=== PATIENT | female | born 1965 | race Caucasian/White ===

== ENCOUNTER 2020-06-10 09:45 | Outpatient (CLI) | payer BC, SELFPAY ==
--- NOTE | 2020-06-10 09:52 | MM_ITS ---
WS: [id number] BILATERAL DIGITAL SCREENING MAMMOGRAPHY WITH CAD CLINICAL INFORMATION: SCREENING HISTORY: Screening mammogram. No current complaints. COMPARISON: [id number] TECHNIQUE: Bilateral CC and MLO views. FINDINGS: The breasts are composed of heterogeneous fibroglandular density tissue, which can limit the detectio n of small underlying mass lesions. No suspicious mass, asymmetry, calcifications, or architectural d istortion. No evidence of malignancy. A few punctate and lucent centered calcifications. MM/[place] [id number] IMPRESSION: BI-RADS: 2-Benign FOLLOW UP: 1 Year Follow-up Recommend return to annual screening mammography.
== END 2020-06-10 09:46 | disposition home or self-care (01) ==
LOC: RADSHAW 09:51
PROVIDERS: PCP Internal Medicine; Visit Provider Internal Medicine
DX: Z12.31 Encounter for screening mammogram for malignant neoplasm of breast (principal)
CPT/HCPCS: 77067

== ENCOUNTER 2021-10-18 16:12 | Outpatient (CLI) | payer OTHER, SELFPAY ==
--- NOTE | 2021-10-18 16:23 | XR_ITS ---
WS: [id number] XR KUB [id number] REASON FOR EXAM: ABD BLOATING FINDINGS: No free air or retroperitoneal air. Unremarkable bowel gas pattern with no significant bowel distention. No urinary tract calculi. Increased soft tissue density within the pelvis which does not clearly represent distended urinary bl adder. No other significant abnormality. XR/XR KUB [id number] IMPRESSION: Abnormality of the pelvis. Transabdominal ultrasound is recommended to evaluate for pelvic mass.
== END 2021-10-18 16:13 | disposition home or self-care (01) ==
PROVIDERS: PCP Internal Medicine; Visit Provider Nurse Practitioner Family
DX: R14.0 Abdominal distension (gaseous) (principal)
CPT/HCPCS: 74018

== ENCOUNTER 2021-10-26 10:06 | Outpatient (CLI) | payer OTHER, SELFPAY ==
--- NOTE | 2021-10-26 10:43 | CT_ITS ---
WS: [id number] CT ABDOMEN PELVIS TECHNIQUE: Contrast-enhanced CT of the abdomen and pelvis with coronal and sagittal reformatted image s. CLINICAL INFORMATION: LIVER NODULE, EPIGASTRIC DISCOMFORT, ABDOMINAL BLOATING COMPARISON: None. DLP: 1153.[address] scans at [facility] use at least one of these dose optimization techniques: automated e xposure control; mA and/or kV adjustment per patient size (includes targeted exams where dose is matc hed to clinical indication); or iterative reconstruction. FINDINGS:Diffuse induration in the ventral peritoneum with bulky nodular soft tissue implants compati ble with metastatic peritoneal carcinomatosis. Nodular soft tissue implants along the ventral periton eum range in size from 2 to 4 cm. Additional extensive soft tissue peritoneal implants within the mario alberto tral and dorsal pelvis. Cystic lesion with peripheral nodularity in the midline pelvis likely corresp onds to the lesion seen on the recent ultrasound. This measures 4.6 x 4.2 cm and may represent the pr imary neoplasm. There is diffuse bulky rectal wall thickening partially evaluated that could also rep resent primary neoplasm versus metastatic disease. Normal caliber abdominal aorta. No periaortic or peritoneal lymphadenopathy. Lesion described on the ultrasound in the liver likely represents the prominent soft tissue metastati c implant in the left upper quadrant between the liver and spleen seen today measuring 4.7 x 3.1 CM. Notable implant in the left lower quadrant measuring 3.8 x 4.7 cm. Diffuse fatty infiltration of the liver. Prior cholecystectomy. Mild to moderate abdominal and pelvic ascites. Perihepatic and perisplenic ascites. Right lung is well aerated. Small left pleural effusio n with left basilar atelectasis. Normal portal vein and splenic vein. Mild fatty atrophy of the pancr eas. Adrenal glands are normal. Normal renal parenchymal enhancement. Tiny right renal cyst. No hydro nephrosis in either kidney. No periaortic or retroperitoneal lymphadenopathy. No inguinal lymphadenopathy. Mild fatty atrophy of the pancreas. No inguinal lymphadenopathy. Disc space narrowing L5-S1. IMPRESSION: 1. Extensive bulky peritoneal carcinomatosis compatible with metastatic disease involving the ventra l abdominal peritoneum and pelvis. Consider ovarian or colon metastatic neoplasms including mucinous neoplasms. 2. There is diffuse bulky rectal wall thickening partially evaluated that could also represent prima ry neoplasm versus metastatic disease. 3. Prominent metastatic implant in the left upper quadrant measuring 4.7 x 3.1 CM. Additional notabl e metastatic implant in the left lower quadrant measuring 3.8 x 4.7 cm 4. No focal liver lesions. Diffuse fatty infiltration of the liver. 5. Cystic lesion in the midline pelvis measuring 4.2 x 4.6 cm with eccentric mural nodularity likely represents the cystic ovarian lesion seen on the recent ultrasound. This may represent a primary ova lala neoplasm but indeterminant 6. Mild to moderate abdominal ascites with perisplenic, perihepatic and pelvic fluid. 7. Small left pleural effusion with left basilar atelectasis. 8. Consider fluid sampling or CT biopsy of the omental implants in further evaluation. Notified Deepa Farris MD at 10/26/2021 1:22 PM.
[2021-10-26] MEDS: iohexol 300 mg/mL 100 mL Btl IV (12:12)
[2021-10-26] MEDS: iohexol 300 mg/mL 50 mL Btl PO (12:13)
== END 2021-10-26 10:07 | disposition home or self-care (01) ==
PROVIDERS: PCP Internal Medicine; Visit Provider Internal Medicine
DX: K76.89 Other specified diseases of liver (principal); R10.13 Epigastric pain; R14.0 Abdominal distension (gaseous); C78.6 Secondary malignant neoplasm of retroperitoneum and peritoneum; K76.0 Fatty (change of) liver, not elsewhere classified; R18.8 Other ascites; J90 Pleural effusion, not elsewhere classified; J98.11 Atelectasis
CPT/HCPCS: 74177; Q9967

== ENCOUNTER 2021-10-29 09:08 | Outpatient (CLI) | payer OTHER, SELFPAY ==
--- NOTE | 2021-10-29 13:09 | ONC CON_ITS ---
Dr. Amor New Patient Note Patient: Genny Diaz Unit #: [id number]: 1965 Dicatated By: Tristan Amor M.D.Date of Visit: Oct 29, 2021 Onc MED New Patient/Consult Referring Physician: Dr. BARBIE PRO M.D. Chief Complaint: Peritoneal carcinomatosis. History of Present Illness: This is a 56-year-old woman with CT evidence of peritoneal carcinomatosis. She has been in good general health. She had recently presented to Dr. Pro with abdominal swelling and postprandial abdominal discomfort. An abdominal ultrasound on 10/25/2021 showed hepatomegaly with coarsened echogenicity. A nodular area of differential echogenicity was noted in the left hepatic lobe measuring 4.3 x 5.4 cm. There was no hydronephrosis noted. There was mild ascites estimated at 1300 mL. Pelvic ultrasound showed a cystic lesion in the right ovary measuring 5.0 x 4.0 x 3.7 cm and containing internal debris. The left ovary was not well visualized. A small amount of free fluid was noted in the cul-de-sac. Further evaluation with CT of the abdomen/pelvis on 10/26/2021 showed extensive bulky peritoneal carcinomatosis compatible with metastatic disease involving the ventral abdominal peritoneum and pelvis. A prominent metastatic implant was noted in the left upper quadrant measuring 4.7 x 3.1 cm with an additional notable metastatic implant in the left lower quadrant measuring 3.8 x 4.7 cm. A cystic lesion in the midline pelvis measuring 4.2 x 4.6 cm with eccentric mural nodularity was felt to likely represent the a cystic ovarian lesion seen on the ultrasound. There was diffuse bulky rectal wall thickening possibly representing primary neoplasm versus metastatic disease. There was mild to moderate abdominal ascites and there was a small left pleural effusion. There was diffuse fatty infiltration of the liver with no evidence for focal liver lesions. She has still been feeling pretty good generally. She still has good energy and normal activity. ECOG score is 0. She has had a decrease in appetite, and her weight is down 25 pounds. At least some of that she attributes to the fact that for the past 6 months she has been walking. She does not have fever, night sweats, or hot flashes. She underwent natural menopause in 2014. She had just short-term hormonal therapy at that time. She has been on treatment with apremilast for psoriasis. She says it worked really well at first, but lately the psoriasis has gotten a little worse. She has not had sore throat or difficulty swallowing. She does not complain of cough, and she has not been having shortness of breath or chest pain. She has not been having nausea. She does report having some heartburn and she has postprandial abdominal bloating/discomfort. Bowel function is pretty good. She has not been aware of any blood in the stool. Bladder function also is pretty good. She has a little bit of joint stiffness when she first gets up in the morning. She has no significant joint or bone pain. She has a history of migraine headaches. She has not been dizzy or lightheaded, and she has no focal neurologic symptoms. Past Medical History: Her medical history includes depression, hypertension, migraine headaches, and psoriasis. Past Surgical History: Her surgical/procedural history includes cholecystectomy in 2011 and tubal ligation in 1995. Medications: Amitriptyline HCl 1 Tablet (of 25 mg) Oral at bedtime, amLODIPine Besylate 1 Tablet (of 5 mg) Oral daily, FLUoxetine HCl 1 Capsule (of 40 mg) Oral daily, Lisinopril-hydroCHLOROthiazide 1 Tablet (of 20-12.5 mg) Oral b.i.d., Magnesium 1 Tablet (of 500 mg) Oral at bedtime Allergies: No Known Allergies. Social History: Ms. Diaz is . She is a non-smoker. She does not drink alcohol. Family History: Father with an aortic aneurysm at around age 80. Her mother at age 88. At the time they suspected a [place] cancer. She had previous treatment for colon cancer and superficial bladder cancer. A brother of a head/neck cancer at age 67. Review Of Symptoms: Constitutional - She still feels pretty good generally. She has good energy and she has normal activity. Her appetite has decreased, and she has had a weight loss of 25 pounds. Some of that she attributes to the fact that for the past 6 months she has been walking. She does not have fever, night sweats, or hot flashes. ECOG score is 0, Eyes - No change in vision, ENMT - No hearing loss or tinnitus. No sinus congestion/drainage. No mouth sores. No sore throat or difficulty swallowing, Hematologic/Lymphatic - No abnormal bruising or bleeding, Respiratory - No shortness of breath. No cough. No pleuritic pain or hemoptysis, Cardiovascular - No angina pain. No palpitations, Gastrointestinal - No nausea or vomiting. She has had a little bit of heartburn. No diarrhea or constipation. No blood in the stool or black stools, Genitourinary (F) - No dysuria or hematuria. No urinary frequency. No urgency or incontinence, Musculoskeletal - She has a little bit of joint stiffness when she first gets up in the morning. She has no significant joint or bone pain, Integumentary - She has psoriasis. It improved on treatment, but recently has been getting a little worse, Neurologic - She has history of migraine headaches. No dizziness. No numbness or tingling. No other focal neurologic symptoms, Psychiatric - She has a little bit of depression. No insomnia. Vital Signs: Performed on Oct 29, 2021 09:49: 2, 0, 30.11 (HIGH), 1.80 sq.m, 63 in, 97 %, 93 /min, 16 /min, 133/84 mm(hg), 97.8 F (LOW), and 170.0 lbs (HIGH). Physical Examination: Constitutional - She appears to be in good general health, Eyes - Sclerae nonicteric. Conjunctivae clear, ENMT - No lesions noted in the oral cavity, Neck - No mass or thyromegaly, Hematologic/Lymphatic - No cervical, clavicular, or axillary adenopathy, Respiratory - Lungs are clear with good air movement bilaterally, Cardiovascular - Heart rhythm is regular. There is no murmur, gallop, or rub noted, Abdomen - Mildly distended but soft. Liver and spleen are not enlarged. There is no abdominal mass noted. She does not have overt evidence of ascites. There is no inguinal adenopathy, Back/Spine - No spine or CVA tenderness noted, Extremities - No edema. Dorsalis pedis pulses are palpable bilaterally, Integumentary - No suspicious skin lesions noted, Neurologic - No focal neurologic deficits noted. Lab/Imaging: Her laboratory studies from 10/18/2021 included CBC showing hemoglobin 12.1 g with hematocrit 38.2%. The red cell indices were borderline low. White blood cell count was 8200 and platelet count was 726,000. Comprehensive metabolic profile showed borderline renal function with BUN 14 and creatinine 1.10 mg/dL. Bilirubin and liver enzymes were normal. Albumin was normal at 4.0 g/dL. TSH was normal at 1.870 ???IU/mL. Problem List: 1. Patient with CT evidence of extensive peritoneal carcinomatosis. The appearance is most suggestive of ovarian cancer or primary peritoneal carcinoma. Other primary malignancy at this point is not excluded. 2. Hypertension. 3. Psoriasis. 4. History of migraine headaches. 5. Depression. Problems Addressed with this Encounter and Plan: Patient with CT evidence of extensive peritoneal carcinomatosis. The appearance is most suggestive of ovarian cancer or primary peritoneal carcinoma. Other primary malignancy at this point is not excluded. The CT findings and images were reviewed with the patient and her , and we discussed the clinical implications. She has extensive peritoneal carcinomatosis. A tissue diagnosis will need to be verified with biopsy, and she has been scheduled for a CT directed biopsy. Tumor markers also have been requested, and those results are pending. Treatment recommendations will depend on the primary site and complete pathologic analysis. If it is an ovarian cancer or primary peritoneal malignancy, I will be consulting with [facility] oncology prior to initiating any treatment. Signed By: Tristan Amor M.D. <<Signature on File>>
== END 2021-10-29 09:09 | disposition home or self-care (01) ==
LOC: ONCMED 09:14
PROVIDERS: PCP Internal Medicine; Visit Provider Internal Medicine Medical Oncology
DX: C78.6 Secondary malignant neoplasm of retroperitoneum and peritoneum (principal); C80.1 Malignant (primary) neoplasm, unspecified; I10 Essential (primary) hypertension; F32.A Depression, unspecified; L40.9 Psoriasis, unspecified; Z79.899 Other long term (current) drug therapy; Z80.52 Family history of malignant neoplasm of bladder; Z80.8 Family history of malignant neoplasm of other organs or systems
CPT/HCPCS: 99204

== ENCOUNTER 2021-11-04 12:30 | Outpatient (CLI) | payer OTHER, SELFPAY ==
--- NOTE | 2021-11-04 | CT_ITS ---
WS: [id number] CT-GUIDED PERITONEAL BIOPSY CLINICAL INFORMATION: Peritonel carcinomatosis COMPARISON: CT October 26, 2021 DLP: 1023.95 mGy.cm TECHNIQUE: The procedure including risk, benefits, and complications were discussed with the patient who agreed to proceed. Using sterile technique, the patient was prepped and draped in the usual steri le fashion. Patient was positioned supine and CT images were obtained through the abdomen. A peripher al omental nodule was selected. After 1% lidocaine using fluoroscopic guidance, a 18-gauge coaxial ne edle was advanced into the omental mass. Numerous core samples were obtained. In addition, approximat heri 50 cc of bloody fluid was aspirated and sent for cytology. No immediate complications.
== END 2021-11-04 12:31 | disposition home or self-care (01) ==
PROVIDERS: PCP Internal Medicine; Visit Provider Internal Medicine
DX: C78.6 Secondary malignant neoplasm of retroperitoneum and peritoneum (principal)
CPT/HCPCS: 77012; 88112; 88305; 88309

== ENCOUNTER 2021-11-04 14:55 | Outpatient (CLI) | payer OTHER, SELFPAY ==
[2021-11-03 11:38] VITALS: BMI 29.9
[2021-11-04] VITALS (9 sets, daily range): BP systolic 107–125; BP diastolic 70–79; PULSE 69–87; RESP 16–19; TEMP 36.5–36.9; O2SAT 95–100
--- NOTE | 2021-11-04 | CT_ITS ---
WS: [id number] CT-GUIDED PERITONEAL BIOPSY CLINICAL INFORMATION: Peritonel carcinomatosis COMPARISON: CT October 26, 2021 DLP: 1023.95 mGy.cm TECHNIQUE: The procedure including risk, benefits, and complications were discussed with the patient who agreed to proceed. Using sterile technique, the patient was prepped and draped in the usual steri le fashion. Patient was positioned supine and CT images were obtained through the abdomen. A peripher al omental nodule was selected. After 1% lidocaine using fluoroscopic guidance, a 18-gauge coaxial ne edle was advanced into the omental mass. Numerous core samples were obtained. In addition, approximat heri 50 cc of bloody fluid was aspirated and sent for cytology. No immediate complications. CT/CT biopsy abdomen percut 51309 IMPRESSION: 1. Multiple 18-gauge core samples were obtained of the omental mass. No immedi ate complications. 2. Approximately 50 cc of bloody fluid was aspirated and sent for cytology. 3. Patient was discharged 2 hours postprocedure in stable condition.
[2021-11-04] MEDS: sodium chloride 0.9% 1,000 ML 30 ML IV (12:12)
[2021-11-04 12:35] LABS: INR 1.02 (0.8-1.2)
[2021-11-04] MEDS: fentaNYL 50 mcg/mL INJ 2mL 25 MCG IVP ×2 (13:47→13:52)
[2021-11-04] MEDS: midazolam 1 mg/mL INJ 2 mL 2 MG IVP (13:47)
[2021-11-04] MEDS: midazolam 1 mg/mL INJ 2 mL IVP (13:51)
[2021-11-09 15:54] LABS: HER2 FISH/IHC (Non-Gastric) See Report
== END 2021-11-04 15:55 | disposition home or self-care (01) ==
LOC: GILAB 14:59
PROVIDERS: Radiology Neuroradiology; PCP Internal Medicine; Visit Provider Internal Medicine
DX: C78.6 Secondary malignant neoplasm of retroperitoneum and peritoneum (principal)
CPT/HCPCS: 36415; 49180; 77012; 85610; 88104; 88112; 88305; 88309; 88342; 88374; 96374; 96375; J2250; J3010; J7030

== ENCOUNTER 2021-11-05 15:42 | Inpatient (IN) | payer OTHER, SELFPAY ==
[2021-11-05] VITALS (9 sets, daily range): BP systolic 86–103; BP diastolic 52–61; PULSE 88–95; RESP 20–36; TEMP 36.4; O2SAT 88–94
--- NOTE | 2021-11-05 15:49 | XR_ITS ---
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 There is very mild elevation of the LEFT hemidiaphragm which is new since the irrigation flume layer image 10/26/2021. May be due to partial atelectasis. Very slight subsegmental atelectasis at the LEFT lung base. No pul monary mass or nodule identified. No pneumothorax. No free air beneath the diaphragm. Cardiac size: Normal. Mediastinum/Aorta: No mediastinal widening. No osseous abnormality seen. XR/XR chest 1V portable [id number] IMPRESSION: Very minimal elevation of the LEFT hemidiaphragm is new since 10/26/2021. May be secondary to partial atelectasis. No pneumonia.
--- NOTE | 2021-11-05 15:49 | ECG_ITS ---
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
[2021-11-05] MEDS: sodium chloride 0.9% 1,000 ML 999 ML IV (16:30)
[2021-11-05] MEDS: ondansetron 2 mg/ML SDV 2 mL 4 MG IVP (16:31)
--- NOTE | 2021-11-05 16:37 | PC.NURSE ---
PATIENT ON CONTINUOUS BEDSIDE CARDIAC, BP AND O2 MONITOR.
[2021-11-05 16:53] LABS: Basophils % 0.3 %; Hemoglobin 11.5 g/dL (11.5-15.3); Lymphocytes # 0.6 10^3/uL (0.8-4.8); Lymphocytes % 5.6 %; Mean Corpuscular HGB Conc 30.3 g/dL (30.0-36.0); Mean Corpuscular Hemoglobin 25.3 pg (28.0-34.0); Mean Corpuscular Volume 83.5 fl (81-99); Mean Platelet Volume 9.5 fL (7.4-10.4); Monocytes # 0.3 10^3/uL (0.2-0.9); Monocytes % 2.5 %; Neutrophils % 91.2 %; Nucleated Red Blood Cells % 0 %; Platelet Count 565 10^3/cmm (130-400); Red Blood Count 4.55 10^6/uL (4.1-5.3); Red Cell Distribution Width 15.5 % (12.1-15.1); White Blood Count 10.1 10^3/uL (4.0-10.0)
[2021-11-05 17:08] LABS: Alanine Aminotransferase 18 U/L (0-33); Albumin Level 3.6 g/dL (3.5-5.2); Alkaline Phosphatase 103 IU/L (35-105); Blood Urea Nitrogen 19 mg/dL (6-20); Calcium 9.6 mg/dL (8.5-10.5); Carbon Dioxide 20 mmol/L (22-29); Chloride 95 mmol/L (98-107); Creatine Phosphokinase 58 U/L (26-192); Globulin 3.7 g/dL (1.3-4.6); Glomerular Filtration Rate 33.2 mL/min (90-130); Glucose 133 mg/dL (65-115); Lipase 8 U/L (13-60); Osmolality Calculated 282 mOsm/kg (285-295); Sodium 134 mmol/L (136-145); Total Bilirubin 1.3 mg/dL (0.15-1.2); Total Protein 7.3 g/dL (6.6-8.7)
--- NOTE | 2021-11-05 17:12 | CTR_ITS ---
PROCEDURE INFORMATION: Exam: CTA Chest With Contrast Exam date and time: 11/05/2021 5:12 PM Age: 56 years old Clinical indication: Abdominal pain; Periumbilical; Left-sided; Prior surgery; Surgery date: Post-operative (0-2 days); Surgery type: S/P 1day for abdominal biopsy. Pain in the abdomen with diarrhea; Additional info: Eval for pe TECHNIQUE: Imaging protocol: Computed tomographic angiography of the chest with contrast. 3D rendering (Not supervised by radiologist): MIP and/or 3D reconstructed images were created by the technologist. Radiation optimization: All CT scans at this facility use at least one of these dose optimization techniques: automated exposure control; mA and/or kV adjustment per patient size (includes targeted exams where dose is matched to clinical indication); or iterative reconstruction. Contrast material: VISIPAQUE 320; Contrast volume: 95 ml; Contrast route: INTRAVENOUS (IV); COMPARISON: CR XR chest 1V portable [id number] 11/05/2021 3:59 PM RADIATION DOSE METRICS: Total DLP (mGy-cm): 1332.83 FINDINGS: Pulmonary arteries: Normal. No pulmonary emboli. Aorta: Unremarkable. No aortic aneurysm. No aortic dissection. Lungs: Atelectasis or scar in the anterior right upper lobe. Scattered atelectasis or scarring in the right middle lobe, right lower lobe, and lingula. Passive atelectasis in the left lower lobe. Pleural spaces: Medium-sized left pleural effusion, 3.5 cm in thickness. Heart: Unremarkable. No cardiomegaly. No pericardial effusion. Lymph nodes: Unremarkable. No enlarged lymph nodes. Bones/joints: Unremarkable. No acute fracture. Soft tissues: Unremarkable. PROCEDURE INFORMATION: Exam: CT Abdomen And Pelvis With Contrast Exam date and time: 11/05/2021 5:12 PM Age: 56 years old Clinical indication: Abdominal pain; Periumbilical; Left-sided; Prior surgery; Surgery date: Post-operative (0-2 days); Surgery type: S/P 1day for abdominal biopsy. Pain in the abdomen with diarrhea; Additional info: Eval for pe TECHNIQUE: Imaging protocol: Computed tomography of the abdomen and pelvis with contrast. Radiation optimization: All CT scans at this facility use at least one of these dose optimization techniques: automated exposure control; mA and/or kV adjustment per patient size (includes targeted exams where dose is matched to clinical indication); or iterative reconstruction. Contrast material: VISIPAQUE 320; Contrast volume: 95 ml; Contrast route: INTRAVENOUS (IV); COMPARISON: CR XR chest 1V portable [id number] 11/05/2021 3:59 PM RADIATION DOSE METRICS: Total DLP (mGy-cm): 1332.83 FINDINGS: Liver: Normal. No mass. Gallbladder and bile ducts: Cholecystectomy. The bile ducts are normal. Pancreas: Normal. No ductal dilation. Spleen: Normal. No splenomegaly. Adrenal glands: Normal. No mass. Kidneys and ureters: Hypodensities in the right kidney are too small to characterize but are most likely cysts. The left kidney is normal. No follow-up imaging is recommended. No calculus or hydronephrosis. Stomach and bowel: Diverticulosis of the left colon. The remainder of the colon is unremarkable. The stomach and small bowel are unremarkable. No obstruction. Appendix: The appendix is not visualized. No secondary signs of appendicitis. Intraperitoneal space: Large amount of ascites in the abdomen and pelvis, Hounsfield units less than 20. Vasculature: The celiac and superior mesenteric arteries share a common trunk. No abdominal aortic aneurysm. Lymph nodes: Unremarkable. No enlarged lymph nodes. Urinary bladder: Unremarkable as visualized. Reproductive: The uterus is unremarkable. The ovaries are not well visualized. Bones/joints: Unremarkable. No acute fracture. Soft tissues: Multiple soft tissue nodules matted along the posterior left pelvic wall and along the sigmoid colon. Multiple soft tissue density nodules along the greater omentum of the mesentery, anterior left peritoneal cavity, lower right and right lateral peritoneal cavity, and in the left upper quadrant anterior and superior to the spleen. CT/CT angio chest w abd pel w con IMPRESSION: 1. No evidence for pulmonary embolus. 2. No evidence for metastatic disease. 3. Left pleural effusion with left lower lobe atelectasis. 4. Scattered atelectasis and scarring in both lungs. IMPRESSION: 1. Severe peritoneal carcinomatosis in multiple locations within the peritoneal cavity and mesentery. This could be of ovarian or gastrointestinal origin. No definite ovarian mass is visualized. 2. There is soft tissue caking along the sigmoid colon with likely invasion of the colon wall. This is most likely peritoneal carcinomatosis. Primary malignancy of the colon is not excluded. 3. Large amount of ascites which is of fluid density. No evidence is suggests intraperitoneal hemorrhage. COMMENTS: Consistent with the [employer]'s Incidental Findings Committee white paper (J Am Nighat Radiol 2018): Any incidental renal lesion less than 1 cm or classified as too small to characterize, or any incidental cystic renal lesion characterized as simple-appearing, is likely benign. No follow-up imaging is recommended for these lesions per consensus recommendations based on imaging criteria.
[2021-11-05 17:13] LABS: Lactic Sepsis W/Reflex 3.7 mmol/L (0.5-2.2)
[2021-11-05 17:14] LABS: Aspartate Amino Transferase 32 U/L (0-32)
[2021-11-05 17:28] LABS: ABG PCO2 34.3 mmHg (35-45); ABG PH Result 7.44 (7.35-7.45); Base Excess ABG -0.4 mmol/L (-2.0-2.0); Blood Gas Allen Test Pos; Blood Gas Operator Identificat CAK; Blood Gas Sample Site Brachial, left; Blood Gas Sample Type Arterial; HCO3 ABG 23.4 mmol/L (22-26); Oxygen Device ROOM AIR; PO2 ABG 56.5 mmHg (80.0-100.0)
--- NOTE | 2021-11-05 18:01 | W.ED.GENADLT ---
HPI - General Adult General: Chief complaint: ER Hold Stated complaint: Biopsy yesterday and it is hurting today Time Seen by Provider: 11/05/21 16:39 History of Present Illness: Patient is a 56-year-old female with a history of abdominal carcinomatosis currently under evaluation followed by Dr. Amor presenting to emergency room with complaints of sudden and midepigastric abdominal pain x 1 day. Patient recently underwent left renal biopsy yesterday and since then, patient has had intermittent crampy abdominal pain. Patient has no fever or chills, nausea/vomiting, diarrhea, melena/hematochezia or urinary complaints. She denies any chest pain shortness breath, pleuritic chest pain, or other issues. Patient is not on chemotherapy. Onset: 1 day Duration:ongoing Location:home Severity:moderate Associated symptoms: Deny chest pain, dyspnea, nausea, rash, palpitations or vomiting Review of Systems Const: Denies: fever(s) or chills Eyes: Denies: change in vision ENMT: Denies: mouth pain Card: Denies: chest pain or palpitations Resp: Denies: dyspnea GI: Reports: abdominal pain; Denies: nausea or vomiting : Denies: dysuria Musc: Denies: extremity pain Skin/Breast: Denies: rash Neuro: Denies: weakness in extremities Psych: Reports: other (Normal mood) Mike/Lymph: Denies: easy bruising PFSH ED PFSH: Medical History Anxiety Depression HTN (hypertension) Surgical History History of cholecystectomy No pertinent past surgical history Family History Mother Colon cancer Social History Smoking and tobacco status: never smoked Alcohol intake: never History of recent travel: No Physical Exam Const: COMMON NORMALS: alert HENMT: COMMON NORMALS: atraumatic HEAD & SCALP: atraumatic MOUTH: moist mucous membranes not abnormal Eye: COMMON NORMALS: EOMs intact bilaterally and conjunctivae normal CONJUNCTIVA: Yes conjunctivae normal Neck/C-Spine: COMMON NORMALS: full ROM and supple Resp: COMMON NORMALS: normal respiratory effort and clear to auscultation bilaterally AUSCULTATION: clear to auscultation bilaterally Cardio: COMMON NORMALS: regular rate RATE: regular rate GI: COMMON NORMALS: Soft to palpation and non-tender PALPATION: Yes Soft to palpation OTHER: + abdominal distention. +mild epigastric and R flank ttp. NO guarding rebound, guarding, rigidity. No CVA tenderness to percussion. Neg Rock/Neg McBurney's point tenderness, no suprabupic tenderness to palpation. R flank biopsy incision site dry/clean/intact Extremity: COMMON NORMALS: full ROM Neuro: SENSORIUM/ORIENTATION: Yes alert MOTOR EXAM: No Abnormal motor strength present and Other motor observations present (no focal motor deficits) Psych: COMMON NORMALS: speech normal SPEECH: Yes normal speech MOOD & AFFECT: Yes euthymic mood Course Vital Signs: Vital signs: Vital Signs Temperature 101.4 F H 11/08/21 12:00 Pulse Rate 87 11/08/21 10:55 Respiratory Rate 30 H 11/08/21 10:55 Blood Pressure 93/61 11/08/21 04:00 Pulse Oximetry 99 11/08/21 10:55 MDM - General Adult Medical Decision Making 56-year-old female with a history of. Toenail carcinomatosis presents emergency room with worsening abdominal pain after biopsy x1 day. Patient reports diarrhea nausea and worsening abdominal pain. Patient is afebrile, with mild tenderness palpation midepigastric and right flank area. No guarding rebound tenderness. In the ER, patient is noted to be hypoxemic to 90% no increased work of breathing. Patient does not require oxygen at baseline Covid positive today. CT abdomen pelvis did not show any focal findings or pathologies. Patient has a white count of 10.1. CTA chest negative for PE S/p decadron and remdesivir. O2 sats of 90% on RA with no prior oxygen requirement. I performed a shared decision-making with patient for close outpatient follow-up for paracentesis versus patient for pain from control. Since patient continues to have significant Pain, patient elects to stay in the hospital for better pain control. I explained to the patient that it is unlikely that we will have paracentesis performed in the weekend, however patient still elects to stay in the hospital given concern of persistent pain. Cr of 1.6 with no baseline for comparison. S/p 1L of LR. Patient received 0.5mg of dilaudid and 1mg/kg of nebulized ketamine for pain control. Pain improved with reassessment. Disposition: admission Lab Data : 11/08/21 06:55 11/08/21 06:55 Radiology Impressions Chest/Abdomen/Pelvis CT 11/05/21 17:12 IMPRESSION: 1. No evidence for pulmonary embolus. 2. No evidence for metastatic disease. 3. Left pleural effusion with left lower lobe atelectasis. 4. Scattered atelectasis and scarring in both lungs. IMPRESSION: 1. Severe peritoneal carcinomatosis in multiple locations within the peritoneal cavity and mesentery. This could be of ovarian or gastrointestinal origin. No definite ovarian mass is visualized. 2. There is soft tissue caking along the sigmoid colon with likely invasion of the colon wall. This is most likely peritoneal carcinomatosis. Primary malignancy of the colon is not excluded. 3. Large amount of ascites which is of fluid density. No evidence is suggests intraperitoneal hemorrhage. COMMENTS: Consistent with the [employer]'s Incidental Findings Committee white paper (J Am Nighat Radiol 2018): Any incidental renal lesion less than 1 cm or classified as too small to characterize, or any incidental cystic renal lesion characterized as simple-appearing, is likely benign. No follow-up imaging is recommended for these lesions per consensus recommendations based on imaging criteria. Venous Duplex 11/06/21 22:31 IMPRESSION: No evidence of deep vein thrombosis. Chest X-Ray 11/07/21 08:59 IMPRESSION: 1. Patchy bibasilar airspace opacities may reflect atelectasis versus pneumonia. 2. Mild interstitial pulmonary edema with small bilateral pleural effusions. Laboratory Results WBC 10.1 10^3/uL (4.0-10.0) H 11/05/21 16:34 RBC 4.55 10^6/uL (4.1-5.3) 11/05/21 16:34 Hgb 11.5 g/dL (11.5-15.3) 11/05/21 16:34 Hct 38.0 % (37.0-47.0) 11/05/21 16:34 MCV 83.5 fl (81-99) 11/05/21 16:34 MCH 25.3 pg (28.0-34.0) L 11/05/21 16:34 MCHC 30.3 g/dL (30.0-36.0) 11/05/21 16:34 RDW 15.5 % (12.1-15.1) H 11/05/21 16:34 Plt Count 565 10^3/cmm (130-400) H 11/05/21 16:34 MPV 9.5 fL (7.4-10.4) 11/05/21 16:34 Neut % (Auto) 91.2 % 11/05/21 16:34 Lymph % (Auto) 5.6 % 11/05/21 16:34 Maverick % (Auto) 2.5 % 11/05/21 16:34 Eos % (Auto) 0.0 % 11/05/21 16:34 Baso % (Auto) 0.3 % 11/05/21 16:34 Neut # (Auto) 9.20 10^3/uL (1.8-7.7) H 11/05/21 16:34 Lymph # (Auto) 0.6 10^3/uL (0.8-4.8) L 11/05/21 16:34 Maverick # (Auto) 0.3 10^3/uL (0.2-0.9) 11/05/21 16:34 Eos # (Auto) 0.0 10^3/uL (0.0-0.8) 11/05/21 16:34 Baso # (Auto) 0.0 10^3/uL (0.0-0.1) 11/05/21 16:34 Nucleated RBC % (auto) 0 % 11/05/21 16:34 Nucleated RBCs # 0.0 /100WBC 11/05/21 16:34 D-Dimer 4.98 ug/mIFEU (0-0.59) H 11/05/21 01:40 Specimen Type Arterial 11/05/21 17:16 Sample Site Brachial, left 11/05/21 17:16 ABG pH 7.44 (7.35-7.45) 11/05/21 17:16 ABG pCO2 34.3 mmHg (35-45) L 11/05/21 17:16 ABG pO2 56.5 mmHg (80.0-100.0) L 11/05/21 17:16 ABG HCO3 23.4 mmol/L (22-26) 11/05/21 17:16 ABG Base Excess -0.4 mmol/L (-2.0-2.0) 11/05/21 17:16 James Test Pos 11/05/21 17:16 Hematocrit 32.0 % (37-47) L 11/05/21 17:16 O2 Delivery Device Room air 11/05/21 17:16 FiO2 21.0 % 11/05/21 17:16 Dividend Deposit Entry Clerk ID Cak 11/05/21 17:16 Sodium 134 mmol/L (136-145) L 11/05/21 16:34 Potassium 4.0 mmol/L (3.5-5.1) 11/05/21 16:34 Chloride 95 mmol/L (98-107) L 11/05/21 16:34 Carbon Dioxide 20 mmol/L (22-29) L 11/05/21 16:34 Anion Gap 23.0 (5-19) H 11/05/21 16:34 BUN 19 mg/dL (6-20) 11/05/21 16:34 Creatinine 1.6 mg/dL (0.5-0.9) H 11/05/21 16:34 GFR Calculation 33.2 mL/min (90-130) L 11/05/21 16:34 Glucose 133 mg/dL (65-115) H 11/05/21 16:34 Estimat Average Glucose 108 11/05/21 16:34 Hemoglobin A1c 5.4 % (4.0-6.0) 11/05/21 16:34 Calculated Osmolality 282 mOsm/kg (285-295) L 11/05/21 16:34 Lactic Acid 3.7 mmol/L (0.5-2.2) H 11/05/21 16:34 Lactic Acid (Sepsis) 3.5 mmol/L (0.5-2.2) H 11/05/21 19:31 Calcium 9.6 mg/dL (8.5-10.5) 11/05/21 16:34 Total Bilirubin 1.3 mg/dL (0.15-1.2) H 11/05/21 16:34 AST 32 U/L (0-32) 11/05/21 16:34 ALT 18 U/L (0-33) 11/05/21 16:34 Alkaline Phosphatase 103 IU/L (35-105) 11/05/21 16:34 Creatine Kinase 58 U/L (26-192) 11/05/21 16:34 C-Reactive Protein 142.9 mg/L (0.0-4.9) H 11/05/21 16:34 Total Protein 7.3 g/dL (6.6-8.7) 11/05/21 16:34 Albumin 3.6 g/dL (3.5-5.2) 11/05/21 16:34 Globulin 3.7 g/dL (1.3-4.6) 11/05/21 16:34 Lipase 8 U/L (13-60) L 11/05/21 16:34 Procalcitonin 5.33 ng/mL (0-0.5) H 11/05/21 16:34 Serum Ketones Negative (Negative) 11/05/21 16:34 Coronavirus 229E (PCR) Not detected (NOT DETECT) 11/05/21 17:41 SARS-CoV-2 (PCR) Detected (NOT DETECT) A 11/05/21 17:41 Discharge Plan Discharge Patient Disposition: Admitted As Inpatient Admit Provider: Don Camacho Clinical Impression: Abdominal pain, COVID, Acute kidney injury, Abdominal carcinomatosis Condition: Stable Discharge Diet: Advance as tolerated Discharge Activity: Increase activity as tolerated Coding Level of Care Code ED Warehouse Record Clerk for Char Fwd Exam Comprehensive
[2021-11-05 18:27] LABS: Reflex Lactate Order REFLEX LACTIC ORDERD
[2021-11-05] MEDS: iodixanol 320 mg/mL 100mL Btl IV (19:08)
[2021-11-05 19:59] LABS: Adenovirus Not Detected (NOT DETECT); Chlamydia Pneumoniae Not Detected (NOT DETECT); Coronavirus 229E,HKU1,NL63,OC4 Not Detected (NOT DETECT); Human Metapneumovirus Not Detected (NOT DETECT); Human Rhinovirus/Enterovirus Not Detected (NOT DETECT); Influenza A Not Detected (NOT DETECT); Influenza A H1 Not Detected (NOT DETECT); Influenza A H1-2009 Not Detected (NOT DETECT); Influenza A H3 Not Detected (NOT DETECT); Influenza B Not Detected (NOT DETECT); Mycoplasma Pneumoniae Not Detected (NOT DETECT); Parainfluenza Virus Type 1 Not Detected (NOT DETECT); Parainfluenza Virus Type 2 Not Detected (NOT DETECT); Parainfluenza Virus Type 3 Not Detected (NOT DETECT); Parainfluenza Virus Type 4 Not Detected (NOT DETECT); Respiratory Syncytial Virus A Not Detected (NOT DETECT); Respiratory Syncytial Virus B Not Detected (NOT DETECT); SARS-COV-2 Detected (NOT DETECT)
[2021-11-05 20:11] LABS: Lactic Acid level (Lactate) 3.5 mmol/L (0.5-2.2)
[2021-11-05 20:47] LABS: Ketone (Acetest) Serum Negative (Negative)
[2021-11-05 20:55] LABS: C Reactive Protein 142.9 mg/L (0.0-4.9); Estmated Average Glucose 108; Hemoglobin A1C 5.4 % (4.0-6.0)
[2021-11-05 21:05] LABS: Procalcitonin 5.33 ng/mL (0-0.5)
--- NOTE | 2021-11-05 21:25 | PM.HP ---
Providers/Chief Complaint Primary Care Provider: Deepa Farris MD Chief Complaint: Biopsy yesterday and it is hurting today History of Present Illness Genny Diaz is a 56 year old female with a past medical history of depression, hypertension, GERD, who presents to [facility] due to abdominal pain, abdominal distention, nausea, vomiting. Patient tells me that for the last month she has had abdominal pain, abdominal distention, work-up through her primary care provider if to Dr. Amor's office showed evidence of cystic lesion in the right ovary, echogenicity in the left hepatic lobe, and extensive bulky peritoneal carcinomatosis compatible with metastatic disease involving the ventral abdominal peritoneum and pelvis, with prominent metastatic implants in the left upper quadrant and left lower quadrant, with a cystic lesion in the mid pelvis measuring 4.2 x 4.6 cm. In addition there was evidence of rectal wall thickening. Also left pleural effusion. Patient was diagnosed with radiographic evidence suggestive of peritoneal carcinomatosis, ovarian cancer as a primary or primary peritoneal carcinoma. However other primary malignancies were not excluded. She underwent a CT guided biopsy, with the paracentesis yesterday. 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 Patient since then has had increasing abdominal distention, abdominal pain, nausea, vomiting, no fevers, decreased appetite, decreased stooling. Her admission blood pressure was 89/55, respiratory rates were 20s 30s, temp 97.5, saturating 92 on room air, she has been given a liter bolus, blood pressure is 99/61, creatinine 1.6, white blood cell count 10.1, lactic acid 3.5, CRP 142, pro-Dmitry 5.33, bili 1.3. CT scan of abdomen and pelvis shows large volume ascites. Hospitalist team was called for admission Review of Systems Const: Denies: fever(s), chills, fatigue or malaise Eyes: Denies: change in vision or blurry vision ENMT: Denies: nasal congestion Resp: Denies: dyspnea, productive cough, non-productive cough or wheezing GI: Reports: abdominal pain, nausea and vomiting; Denies: hematemesis, dysphagia, diarrhea, hematochezia or melena : Denies: flank pain, dysuria or urinary frequency Musc: Denies: neck pain or back pain Skin/Breast: Denies: rash Neuro: Denies: headache(s), dizziness or vertigo Endo: Denies: polyuria or polydipsia Medications/Allergies Home Medications Medication Instructions Recorded Confirmed Last Taken Type amitriptyline 25 mg tablet 25 mg PO BEDTIME 03/02/21 11/04/21 11/03/21 History amlodipine 5 mg tablet 5 mg PO DAILY 03/02/21 11/04/21 11/04/21 History fluoxetine 40 mg capsule 40 mg PO DAILY 03/02/21 11/04/21 11/04/21 History lisinopril 20 mg tablet 20 mg PO BID 03/02/21 11/04/21 11/03/21 History nedeulq-blhqeokbtavkx-ehyhmjvz 250 1 tab PO Q6H PRN 11/03/21 11/03/21 11/02/21 History mg-250 mg-65 mg tablet (Excedrin Migraine) ketoconazole 2 % shampoo 1 applic TOPICAL .2x weekly PRN 11/03/21 11/03/21 Unknown History magnesium 500 mg tablet 15 mg PO DAILY 11/03/21 11/04/21 11/01/21 History acetaminophen 500 mg tablet 500 mg PO Q6H PRN 5 Days #20 tab 11/05/21 Unknown Rx calcium carbonate 1,000 1 tab PO TID PRN 7 Days #21 tab 11/05/21 Unknown Rx mg-simethicone 60 mg chewable tablet (Maalox Advanced) famotidine 20 mg tablet (Pepcid) 20 mg PO BID PRN 10 Days #20 tab 11/05/21 Unknown Rx Allergies Allergy/AdvReac Type Severity Reaction Status Date / Time No Known Allergies Allergy Verified 11/05/21 16:07 PFSH Acute PFSH: Medical History Anxiety Depression HTN (hypertension) Surgical History History of cholecystectomy No pertinent past surgical history Family History Mother Colon cancer Social History Smoking and tobacco status: never smoked Alcohol intake: never History of recent travel: No Vitals/I&O/Wt Last Vital Signs Temp 97.5 F L 11/05/21 16:04 Pulse 93 11/05/21 18:34 Resp 36 H 11/05/21 18:34 BP 99/61 11/05/21 18:34 Pulse Ox 92 11/05/21 18:34 11/05/21 11/05/21 11/05/21 06:59 14:59 22:59 Intake Total 1000 / 1000 Balance 1000 / 1000 Weight last 48 hrs Weight 76.657 kg Physical Exam Const: COMMON NORMALS: no acute distress and patient oriented x3 GENERAL APPEARANCE: cooperative, well kempt and well developed HENMT: COMMON NORMALS: normocephalic, Normal external nose present and oropharynx normal HEAD & SCALP: normocephalic FACE & SINUS: normal facial exam NOSE: Normal external nose present MOUTH: Normal oral and palatal mucosa present THROAT: posterior oropharynx normal Eye: COMMON NORMALS: Equal, round and reactive pupils present, EOMs intact bilaterally, conjunctivae normal and no scleral icterus CONJUNCTIVA: Yes conjunctivae normal PUPIL: Yes Equal, round and reactive pupils present Neck/C-Spine: COMMON NORMALS: full ROM, Thyroid normal and No carotid bruits THYROID: Thyroid normal Lymph: LYMPHATIC: no lymphadenopathy noted Chest: COMMONS NORMALS: normal inspection of the chest Resp: COMMON NORMALS: normal respiratory effort, No retractions, No use of accessory muscles and clear to auscultation bilaterally AUSCULTATION: clear to auscultation bilaterally Cardio: COMMON NORMALS: regular rate, regular rhythm, S1 normal heart sound present, S2 normal heart sound present, No murmurs present (Cardio) and Peripheral pulses 2+ throughout RATE: regular rate RHYTHM: regular rhythm HEART SOUNDS: S1 normal heart sound present and S2 normal heart sound present PERIPHERAL PULSES: Peripheral pulses 2+ throughout GI: INSPECTION: Yes abdominal distension AUSCULTATION: Yes Hypoactive bowel sounds present PALPATION: Yes Tenderness to palpation present (GI) (Generalized), No Guarding due to palpation present (GI), No Rigid due to palpation and Yes Ascites present : COMMON NORMALS: Yes no CVA tenderness BLADDER/KIDNEY EXAM: Yes no CVA tenderness Back/Pelvis: COMMON NORMALS: no CVA tenderness Extremity: COMMON NORMALS: normal to inspection, full ROM, capillary refill normal, no calf tenderness and no pedal edema Neuro: COMMON NORMALS: patient oriented x3, CN's II-XII intact bilaterally, moves all extremities, no focal motor deficits and no sensory deficits noted MENINGEAL SIGNS: Yes no meningeal signs Psych: COMMON NORMALS: mental status grossly normal, Normal thought process present, cooperative and speech normal APPEARANCE: Yes well kempt SPEECH: Yes normal speech THOUGHT PROCESS: Normal thought process present Skin: COMMON NORMALS: turgor normal and no jaundice GENERAL SKIN EXAM: turgor normal Data : 11/05/21 16:34 11/05/21 16:34 Micro: Microbiology 11/05/21 19:28 Blood Culture - Preliminary Blood SPECIMEN COLLECTED 11/05/21 19:31 Blood Culture - Preliminary Blood SPECIMEN COLLECTED A&P Assessment and plan (1) Sepsis: Status: Acute (2) Abdominal carcinomatosis: Status: Acute (3) Spontaneous bacterial peritonitis: Status: Acute (4) COVID: Status: Acute (5) Acute kidney injury: Status: Acute Plan Sepsis -Likely secondary splinter bacterial peritonitis -Possibly left lower lobe pneumonia? -Blood pressure and 80s over 60s, temperature 97.5, pro-Dmitry 5.33, CRP 142, lactic acid 3.7, creatinine 1.6 -UA pending -CT scan does show large left pleural effusion with left lower lobe atelectasis possible pneumonia, but not requiring any oxygen, no respiratory complaints -COVID-19 positive -large amount of ascites seen on CT scan -Given history of peritoneal carcinomatosis, hepatomegaly, concerning for spontaneous bacterial peritonitis -Has received 1 L fluid in the ER, blood pressure is 99/61 Plan: -We will moved to ICU -Start on broad-spectrum antibiotic therapy vancomycin, Primaxin -She needs to have a repeat paracentesis with cultures, will discuss with surgery tomorrow morning -Midodrine 10 every 8 hours -100 g of albumin on day 1 -Normal saline 100 cc an hour -Clear liquid diet -Follow urine cultures, blood cultures, urine bacterial antigens, paracentesis cultures -Full code -Protonix for GI prophylaxis -Lovenox for DVT prophylaxis COVID-19, positivity, currently not requiring any oxygen, will hold off on treatment unless she becomes symptomatic Acute kidney injury, likely to sepsis above, creatinine 1.6, will get albumin, midodrine, fluids CT evidence of extensive peritoneal carcinomatosis, suggestive of very cancer or primary peritoneal carcinoma, however other primary malignancy is not excluded -CT guided biopsy, with the paracentesis yesterday. 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 - Left pleural effusion with left lower lobe atelectasis, concerning for malignant effusion, can consider thoracocentesis CT scan shows 1. Severe peritoneal carcinomatosis in multiple locations within the peritoneal cavity and mesentery.? This could be of ovarian or gastrointestinal origin.? No definite ovarian mass is visualized. 2. There is soft tissue caking along the sigmoid colon with likely invasion of the colon wall.? This is most likely peritoneal carcinomatosis.? Primary malignancy of the colon is not excluded. 3. Large amount of ascites which is of fluid density.? No evidence is suggests intraperitoneal hemorrhage. Attestations Medical Necessity Statement*: Patient requires hospitalization, inpatient, greater than 2 midnights, for sepsis secondary to spontaneous bacterial peritonitis, COVID-19, LASHAUN Critical Care Time: 35 Coding Level of Care Code Acute Security Services Manager for Chg Fwd History Comprehensive Exam Comprehensive Diagnoses Sepsis A41.9 Abdominal carcinomatosis C76.2 Spontaneous bacterial peritonitis K65.2 COVID U07.1 Acute kidney injury N17.9 Time Spent (min) 55
[2021-11-05] MEDS: HYDROmorphone 1 mg/mL INJ 1 mL 0.5 MG IVP (21:57)
--- NOTE | 2021-11-05 21:57 | PC.PHAR ---
Pharmacokinetic dosing service Date: 11/05/21 Time: 2199 Objective: Patient: Genny Diaz Floor: ER-6 Age: 56 yo Serum creatinine: 1.6 mg/dL Height: 63.0 Inches Weight (kg): 76.657 Diagnosis: Relevant medical/social history: Cultures and sensitivities: Other labs: Assessment: IBW (kg): 52.40 Dosing wt(kg): 76.657 Estimated Creatinine clearance (ml/min): 32.1 CRCL method: Cockcroft and Gault using ibw(default). Drug selected: Vancomycin Loading dose (mg): 0 Vd (liters): 69.0 (factor used: 0.9 L/kg) Alek (hr-1): 0.031 Half life (hrs): 22.36 Recommended dose: mg Interval: hrs Infusion time (hrs): 1.5 Predicted peak (mcg/mL): Predicted trough (mcg/mL): Total body weight is being used for vancomycin dosing. Renal function is stable [ ] /unstable [ ] Recommendations: Give Vancomycin mg q hrs with an expected Cpeak of mcg/ml and an expected Ctrough of mcg/ml Renal dosing of other antibiotics (review renal dosing of other medications and list guidelines here): Thank you for the consult, will continue to follow. Signature: Keturah Gavin [facility]
[2021-11-05] MEDS: sodium chloride 0.9% 1,000 ML 100 ML IV (21:58)
[2021-11-05] MEDS: dexamethasone 10 mg/mL INJ 6 MG IVP (21:58)
[2021-11-05] MEDS: midodrine 5 mg TABLET 10 MG PO (21:58)
[2021-11-05] MEDS: heparin 5,000 unit/mL INJ 1 mL 5000 UNIT SUBCUT (22:13)
[2021-11-05] MEDS: pantoprazole 40 mg SDV IVP (22:25)
[2021-11-05] MEDS: vancomycin 1,250 MG/250 ML PIGGYBACK 250 MG IV (23:30)
[2021-11-05 23:39] LABS: Troponin(5th) Baseline 7 ng/L (0-10)
[2021-11-05 23:47] LABS: NT Pro B Type Natriuretic Pept 432 pg/mL (0-125); Thyroid Stimulating Hormone 1.76 uIU/mL (0.27-4.20)
[2021-11-06] VITALS (120 sets, daily range): BP systolic 80–148; BP diastolic 44–84; PULSE 92–124; RESP 16–61; TEMP 36.3–37; O2SAT 88–98; BMI 29.9
[2021-11-06] MEDS: remdesivir 200 MG in sodium chloride 0.9% (100 ml) 60 ML 100 MG IV (01:35)
[2021-11-06 02:09] LABS: D Dimer 4.98 ug/mIFEU (0-0.59)
[2021-11-06] MEDS: HYDROmorphone 1 mg/mL INJ 1 mL 0.5 MG IVP ×3 (02:34→14:59)
--- NOTE | 2021-11-06 03:50 | ECG_ITS ---
[facility] Test Date: 2021-11-06 Pat Name: Genny Diaz Department: Room: ED Gender: Female Staff Software Engineer: : [id number] Requested By: Don Camacho Order Number: [id number] Reading MD: DELONTE DEE Measurements Intervals [place] Rate: 109 P: 16 MS: 167 QRS: -15 QRSD: 96 T: 21 QT: 342 QTc: 462 Interpretive Statements SINUS TACHYCARDIA LOW QRS VOLTAGE IN PRECORDIAL LEADS [QRS DEFLECTION < 1.0 mV IN CHEST LEADS] POSSIBLE ANTERIOR MYOCARDIAL INFARCTION , PROBABLY OLD [30 ms Q WAVE IN V3/V4, OR R < 0.2 mV IN V4] ABNORMAL RHYTHM ECG Compared to ECG 11/05/2021 16:20:01 Low QRS voltage now present Sinus rhythm no longer present Myocardial infarct finding still present Electronically Signed On 11-06-2021 17:46:42 ADJUSTER AND INSPECTOR by DELONTE DEE [email or web address]
[2021-11-06] MEDS: ipratropium-albuterol 3 mL Neb INHALATION ×5 (05:56→20:30)
[2021-11-06 06:29] LABS: Bilirubin Urine Neg (Negative); Blood Urine 2+ (Negative); Glucose Urine UA Norm (Normal); Ketones Urine Negative (Negative); Leukocyte Esterase Urine Trace (Negative); Nitrate Urine Negative (Negative); Protein Urine Trace (Negative); Specific Gravity, Urine 1.015 (1.005-1.030); Urine Appearance SL Hazy (CLEAR); Urine Color Yellow (Yellow); Urobilinogen Urine 1 mg/dL (Negative); pH Urine 5 (5-7)
[2021-11-06 06:30] LABS: Add Urine Microscopic? YES; Bacteria Urine 2+ /hpf; Coarse Granular Casts Urine 0-4 /lpf; RBC Urine RARE /hpf (0-2); Squamous Epithelial Cell Urine 0-4 /hpf (0-5)
[2021-11-06 06:31] LABS: Add Urine Culture? No
[2021-11-06] MEDS: budesonide 0.5 mg/2 mL Neb INHALATION ×2 (07:35→20:30)
[2021-11-06 07:44] LABS: Alanine Aminotransferase 12 U/L (0-33); Albumin Level 4.3 g/dL (3.5-5.2); Alkaline Phosphatase 55 IU/L (35-105); Anion Gap 23.3 (5-19); Aspartate Amino Transferase 19 U/L (0-32); Blood Urea Nitrogen 24 mg/dL (6-20); Calcium 8.9 mg/dL (8.5-10.5); Carbon Dioxide 18 mmol/L (22-29); Chloride 97 mmol/L (98-107); Globulin 2.2 g/dL (1.3-4.6); Glomerular Filtration Rate 35.8 mL/min (90-130); Glucose 105 mg/dL (65-115); Magnesium 1.5 mg/dL (1.7-2.3); Osmolality Calculated 284 mOsm/kg (285-295); Potassium 3.3 mmol/L (3.5-5.1); Sodium 135 mmol/L (136-145); Total Bilirubin 1.9 mg/dL (0.15-1.2); Total Protein 6.5 g/dL (6.6-8.7)
[2021-11-06 07:45] LABS: Troponin 5 6HR 6.42 ng/L (0-10)
[2021-11-06] MEDS: midodrine 5 mg TABLET 10 MG PO ×3 (08:00→19:50)
[2021-11-06 08:06] LABS: Basophils % 0.7 %; Hematocrit 41.6 % (37.0-47.0); Hemoglobin 11.6 g/dL (11.5-15.3); Lymphocytes # 0.4 10^3/uL (0.8-4.8); Lymphocytes % 7.6 %; Mean Corpuscular HGB Conc 27.9 g/dL (30.0-36.0); Mean Corpuscular Hemoglobin 25.1 pg (28.0-34.0); Mean Corpuscular Volume 89.8 fl (81-99); Mean Platelet Volume 9.9 fL (7.4-10.4); Monocytes # 0.2 10^3/uL (0.2-0.9); Monocytes % 3.2 %; Neutrophils # 4.88 10^3/uL (1.8-7.7); Neutrophils % 88.1 %; Nucleated Red Blood Cells % 0 %; Platelet Count 452 10^3/cmm (130-400); Red Blood Count 4.63 10^6/uL (4.1-5.3); Red Cell Distribution Width 15.7 % (12.1-15.1); White Blood Count 5.5 10^3/uL (4.0-10.0)
[2021-11-06 08:14] LABS: Lactic Sepsis W/Reflex 4.6 mmol/L (0.5-2.2)
[2021-11-06 08:21] LABS: Troponin 5 6HR Delta -0.6 ng/L (0-12)
[2021-11-06] MEDS: sodium chloride 0.9% 1,000 ML 100 ML IV ×2 (08:36→19:48)
[2021-11-06] MEDS: norepinephrine 8 MG in dextrose 5 % 500 ML 38.1 MG IV (08:53)
[2021-11-06 09:19] LABS: Reflex Lactate Order REFLEX LACTIC ORDERD
[2021-11-06] MEDS: cholecalciferol (vitamin D3) 1,000 unit Tablet 1000 UNIT PO (09:48)
[2021-11-06] MEDS: docusate sodium 100 mg Capsule PO ×2 (09:48→17:51)
[2021-11-06] MEDS: ascorbic acid 500 mg Tablet PO ×2 (09:48→17:51)
[2021-11-06] MEDS: zinc gluconate 50 mg Tablet PO (09:48)
[2021-11-06] MEDS: heparin 5,000 unit/mL INJ 1 mL 5000 UNIT SUBCUT ×2 (10:02→19:50)
[2021-11-06 11:14] LABS: Lactic Acid level (Lactate) 4.1 mmol/L (0.5-2.2)
[2021-11-06] MEDS: cefepime 1,000 MG in sodium chloride 0.9% (plus) 50 ML 100 MG IV (11:58)
--- NOTE | 2021-11-06 12:52 | PC.NURSE ---
Requested respiratory to assess patient. Left voicemail for Dr. Garnica to return call.
[2021-11-06 15:29] LABS: Bacillus cereus group Not Detected (NOT DETECT); Bacillus subtillis group Not Detected (NOT DETECT); Corynebacterium Not Detected (NOT DETECT); Cutibacterium acnes (P.acnes) Not Detected (NOT DETECT); Enterococcus Not Detected (NOT DETECT); Enterococcus faecalis Not Detected (NOT DETECT); Enterococcus faecium Not Detected (NOT DETECT); Lactobacillus species Not Detected (NOT DETECT); Listeria Not Detected (NOT DETECT); Listeria monocytogenes Not Detected (NOT DETECT); Micrococcus Not Detected (NOT DETECT); Pan Candida Not Detected (NOT DETECT); Pan Gram-Negative Not Detected (NOT DETECT); Staphylococcus epidermidis Not Detected (NOT DETECT); Staphylococcus lugdunensis Not Detected (NOT DETECT); Staphylococcus species Not Detected (NOT DETECT); Streptococcus agalactiae Not Detected (NOT DETECT); Streptococcus anginosus group Not Detected (NOT DETECT); Streptococcus pneumoniae Not Detected (NOT DETECT); Streptococcus pyogenes Not Detected (NOT DETECT); Streptococcus species Not Detected (NOT DETECT)
[2021-11-06] MEDS: lidocaine 1% 5 ML in potassium chloride premix 100 ML 25 ML IV (16:07)
[2021-11-06] MEDS: FUROsemide 10 mg/mL SDV 4mL 40 MG IVP (16:07)
--- NOTE | 2021-11-06 18:32 | P.PN_ITS ---
Subjective Subjective: Interval history: overnight labs, H&P reviwed. Patient appears uncomfortable,c.o pain and abdominal distension, flushed, saturating 88% at this time. On levophed 10mcg. Blood cx 1/ + GPR Vitals/I&O/Wt Last Vital Signs Temp 98.2 F 11/06/21 15:34 Pulse 117 H 11/06/21 16:25 Resp 30 H 11/06/21 16:00 BP 96/67 11/06/21 16:00 Pulse Ox 88 L 11/06/21 16:00 11/06/21 11/06/21 11/06/21 06:59 14:59 22:59 Intake Total 1971.468 / 2971.468 551.447 / 551.447 678.333 / 1229.780 Balance 1971.468 / 2971.468 551.447 / 551.447 678.333 / 1229.780 Weight last 48 hrs Weight 76.799 kg Weight 76.657 kg Physical Exam Narrative: EXAM NARRATIVE: GEN: Awake, alert and oriented, lying in bed, uncomfortbale, flushed CVS: S1S2 N RS: reduced air entry right lung base Abd: Soft, grossly distended, tender TRAFFIC RECORDER: no focal neuro deficits Urinary Catheter Management: Dumont Latex: Cath Placed During This Visit: yes Urinary Catheter Date of Insertion: 11/06/21 Urinary Catheter Time of Insertion: 15:10 Data : 11/06/21 07:29 11/06/21 06:58 Micro: Microbiology 11/05/21 19:28 Blood Culture - Preliminary Blood Gram positive maycol 11/06/21 06:03 MRSA Culture - Final Nose 11/06/21 06:03 Bacterial Antigens - Final Urine,Clean Catch 11/05/21 19:31 Blood Culture - Preliminary Blood SPECIMEN COLLECTED A&P Assessment and plan (1) Sepsis: Status: Acute (2) Abdominal carcinomatosis: Status: Acute (3) Spontaneous bacterial peritonitis: Status: Acute (4) COVID: Status: Acute (5) Acute kidney injury: Status: Acute Plan Severe Sepsis -Likely secondary sponatneous bacterial peritonitis vs Possibly left lower lobe pneumonia - continues to be on levophed 10mcg and midodrine 10mg TID -UA + leuk esterase, 2+ bacteria, neg nitrate Continue on imipenem and vancomycin empirically - blood cx 1/4 + for GPR, likely contaminnat, will rpt with am labs, currently adequately covered with vancomycin. D/ c metronidazole -CT CAP with large left pleural effusion with left lower lobe atelectasis possible pneumonia -COVID-19 positive - large ascites, unable to get paracentesis over the weekend for cx and ascitic fluid analysis as no IR, critical care available ove rthe , procedure not performed by gen/surg prosthodontist. Will likely need IR guided paracentesis & potential thoracentesis on Monday. 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 Attestations Medical Necessity Statement*: ongoing hospital admission for severe sepsis , on vasopressors, source under evaluation Critical Care Time: The high probability of a clinically significant, sudden or life threatening deterioration of the patient's [respiratory,circulatory,GI,ID ] system(s) required my full and direct attention, intervention and personal management. The critical care time is as shown. This time is in addition to time spent performing any reported procedures but includes the following: [x] Data and vital sign review and interpretation [x] Patient assessment, examination and intervention [x] Documentation [x] Medication orders and management Critical Care Time (min): 45 Coding Level of Care Code Acute Engine Hostler for [facility] Fwd Diagnoses Sepsis A41.9 Abdominal carcinomatosis C76.2 Spontaneous bacterial peritonitis K65.2 COVID U07.1 Acute kidney injury N17.9
[2021-11-06] MEDS: pantoprazole 40 mg SDV IVP (19:49)
[2021-11-06] MEDS: oxyCODONE-APAP 5-325 mg Tablet 1 TAB PO (19:50)
[2021-11-06] MEDS: FUROsemide 10 mg/mL SDV 4mL 20 MG IVP (19:51)
[2021-11-06] MEDS: albumin 12.5 GM/250 ML VIAL IV (19:51)
--- NOTE | 2021-11-06 22:31 | USR_ITS ---
PROCEDURE INFORMATION: Exam: US Duplex Lower Extremity Veins, Bilateral Exam date and time: 11/06/2021 10:31 PM Age: 56 years old Clinical indication: Other: Covid +; Additional info: Evaluate for dvt TECHNIQUE: Imaging protocol: Real-time duplex ultrasound of the extremities with 2-D bautista scale, color Doppler flow and spectral waveform analysis with image documentation. Complete exam focused on the bilateral lower extremity veins. COMPARISON: US pelvic with transvaginal 10/25/2021 2:53 PM FINDINGS: Right deep veins: Unremarkable. The common femoral, femoral, proximal profunda femoral and popliteal veins are patent without thrombus. Normal Doppler waveforms. Normal compressibility and/or augmentation response. Right superficial veins: Saphenofemoral junction is patent without thrombus. Left deep veins: Unremarkable. The common femoral, femoral, proximal profunda femoral and popliteal veins are patent without thrombus. Normal Doppler waveforms. Normal compressibility and/or augmentation response. Left superficial veins: Saphenofemoral junction is patent without thrombus. Soft tissues: Unremarkable. US/CV venous duplex [facility] [id number] IMPRESSION: No evidence of deep vein thrombosis.
[2021-11-06] MEDS: vancomycin 1,250 MG/250 ML PIGGYBACK 200 MG IV (23:50)
[2021-11-07] VITALS (66 sets, daily range): BP systolic 65–162; BP diastolic 46–103; PULSE 85–124; RESP 21–55; TEMP 36.8–37.2; O2SAT 86–100
[2021-11-07] MEDS: ipratropium-albuterol 3 mL Neb INHALATION ×7 (00:45→23:02)
--- NOTE | 2021-11-07 00:50 | PC.NURSE ---
RT approached nurse and both at bedside. Pt. begining to have increasing labbored breathing along with increasing wheezing/stridor. O2 saturation at 88 %. RT increased O2 to 12L nasal cannula. Will continue to monitor
[2021-11-07] MEDS: HYDROmorphone 1 mg/mL INJ 1 mL 0.5 MG IVP ×4 (00:54→14:06)
--- NOTE | 2021-11-07 01:09 | PC.NURSE ---
Called Dr. Camacho to update on patient status and the possibility of needing to place patient on hi flow nasal cannula. Received orders and will implement.
[2021-11-07] MEDS: FUROsemide 10 mg/mL SDV 4mL 40 MG IVP ×2 (01:15→22:15)
[2021-11-07 01:57] LABS: ABG PCO2 38.9 mmHg (35-45); ABG PH Result 7.26 (7.35-7.45); Arterial Blood Gas Hematocrit 31.5 % (37-47); Base Excess ABG -8.9 mmol/L (-2.0-2.0); Blood Gas Allen Test Pos; Blood Gas Operator Identificat glc; Blood Gas Sample Site Radial, left; Blood Gas Sample Type Arterial; HCO3 ABG 17.5 mmol/L (22-26); Oxygen Device NC; PO2 ABG 61.9 mmHg (80.0-100.0)
[2021-11-07] MEDS: midodrine 5 mg TABLET 10 MG PO ×2 (04:27→13:05)
[2021-11-07] MEDS: norepinephrine 8 MG in dextrose 5 % 500 ML 22.86 MG IV (04:27)
[2021-11-07] MEDS: dexamethasone 10 mg/mL INJ 6 MG IVP (05:08)
[2021-11-07 05:51] LABS: Hematocrit 35.8 % (37.0-47.0); Hemoglobin 10.1 g/dL (11.5-15.3); Mean Corpuscular HGB Conc 28.2 g/dL (30.0-36.0); Mean Corpuscular Hemoglobin 24.6 pg (28.0-34.0); Mean Corpuscular Volume 87.1 fl (81-99); Mean Platelet Volume 10.7 fL (7.4-10.4); Platelet Count 395 10^3/cmm (130-400); Red Blood Count 4.11 10^6/uL (4.1-5.3); Red Cell Distribution Width 15.9 % (12.1-15.1); White Blood Count 9.4 10^3/uL (4.0-10.0)
[2021-11-07 06:39] LABS: Alanine Aminotransferase 16 U/L (0-33); Albumin Level 3.5 g/dL (3.5-5.2); Alkaline Phosphatase 100 IU/L (35-105); Aspartate Amino Transferase 31 U/L (0-32); Blood Urea Nitrogen 35 mg/dL (6-20); Calcium 7.9 mg/dL (8.5-10.5); Carbon Dioxide 16 mmol/L (22-29); Chloride 103 mmol/L (98-107); Glucose 109 mg/dL (65-115); Magnesium 1.9 mg/dL (1.7-2.3); Osmolality Calculated 289 mOsm/kg (285-295); Phosphorus 4.1 mg/dL (2.5-4.5); Sodium 135 mmol/L (136-145); Total Bilirubin 2.5 mg/dL (0.15-1.2); Total Protein 6.5 g/dL (6.6-8.7)
[2021-11-07] MEDS: remdesivir 100 MG in sodium chloride 0.9% (100 ml) 80 ML IV (06:46)
[2021-11-07] MEDS: FUROsemide 10 mg/mL SDV 4mL 20 MG IVP (06:46)
[2021-11-07 06:53] LABS: Anion Gap 20.9 (5-19); Potassium 4.9 mmol/L (3.5-5.1)
[2021-11-07 07:40] LABS: Slide Review Slide Review Perform
[2021-11-07 07:44] LABS: Absolute Segmented Neutrophil 4.6 10/cmm (1.6-7.1); Anisocytosis 1+; Band Neutrophils Absolute 2.4 10^3/cmm (0.0-1.2); Eosinophils 0 %; Lymphocytes 13 %; Lymphocytes Absolute 1.2 10^3/cmm (1.2-3.4); Monocytes Absolute 0.2 10^3/cmm (0.1-0.6); Poikilocytosis Trace; Segmented Neutrophils 49 %; Total Cells Counted 100 (0-100); Toxic Granulation 1+
[2021-11-07 07:45] LABS: Absolute Neutrophil 7.1 10^3/cmm (1.4-6.5); Platelet Estimate Normal (Normal)
[2021-11-07 08:38] LABS: ABG PCO2 36.4 mmHg (35-45); ABG PH Result 7.31 (7.35-7.45); Alveolar-Arterial Oxygen Gradi 79.2 mmHg (5-10); Arterial Blood Gas Hematocrit 33.1 % (37-47); Base Excess ABG -7.3 mmol/L (-2.0-2.0); Blood Gas Allen Test Pos; Blood Gas Operator Identificat GD; Blood Gas Sample Site Radial, left; Blood Gas Sample Type Arterial; HCO3 ABG 18.3 mmol/L (22-26); HGB O2 Sat 90.6 % (95-100); Ionized Calcium Level - ABG 1.2 mmol/L (1.1-1.4); Oxygen Device BIPAP; Oxygen Saturation ABG 92.4; PO2 ABG 57.6 mmHg (80.0-100.0); Potassium Level - ABG 4.5 mmol/L (3.5-5.0); Total Hemoglobin 10.8 g/dL (12-16)
[2021-11-07] MEDS: FUROsemide 10 mg/mL SDV 10mL 60 MG IVP (08:42)
--- NOTE | 2021-11-07 08:59 | XRR_ITS ---
PROCEDURE INFORMATION: Exam: XR Chest Exam date and time: 11/07/2021 8:59 AM Age: 56 years old Clinical indication: Other: Hypoxia TECHNIQUE: Imaging protocol: XR of the chest. Views: 1 view. COMPARISON: CR XR chest 1V portable [id number] 11/05/2021 3:59 PM FINDINGS: Lungs: Low lung volumes with patchy bibasilar airspace opacities. Mild interstitial pulmonary edema. Pleural spaces: Small bilateral pleural effusions. No pneumothorax. Heart/Mediastinum: Unremarkable. No cardiomegaly. Bones/joints: Unremarkable. XR/XR chest 1V portable [id number] IMPRESSION: 1. Patchy bibasilar airspace opacities may reflect atelectasis versus pneumonia. 2. Mild interstitial pulmonary edema with small bilateral pleural effusions.
[2021-11-07] MEDS: budesonide 0.5 mg/2 mL Neb INHALATION ×2 (09:06→19:51)
--- NOTE | 2021-11-07 09:58 | P.PN_ITS ---
Subjective Subjective: Interval history: Patient has been more dyspneic this morning, respiratory rate running in the 40s. Started on BiPAP due to oxygen saturation in the 80s. Also started on P recedex infusion. CXR Patchy bibasilar airspace opacities, interstitial pulmonary edema. cr worsening at 1.8 . Off levophed now. Afberile. Vitals/I&O/Wt Last Vital Signs Temp 98.3 F 11/07/21 02:45 Pulse 120 H 11/07/21 09:06 Resp 40 H 11/07/21 09:06 BP 121/72 11/07/21 04:00 Pulse Ox 90 11/07/21 09:06 11/06/21 11/07/21 11/07/21 22:59 06:59 14:59 Intake Total 1361.224 / 1912.671 157.861 / 2070.532 1785 / 1785 Output Total 350 / 350 400 / 750 Balance 1011.224 / 1562.671 -242.139 / 5967.094 2747 / 1785 Weight last 48 hrs Weight 76.799 kg Weight 76.657 kg Physical Exam Narrative: EXAM NARRATIVE: GEN: Awake, alert and oriented, tachypneic, currently on Bipap CVS: S1S2 N RS: B/L coarse crackles Abd: Soft, nt/nd , bs+ ASSEMBLER FINAL: no focal neuro deficits Urinary Catheter Management: Dumont Latex: Cath Placed During This Visit: yes Reason for Continuing Indwelling Catheter: Accurate Measurement of Urinary Output in Critically Ill Patients Urinary Catheter Date of Insertion: 11/06/21 Urinary Catheter Time of Insertion: 15:10 Data : 11/07/21 03:45 11/07/21 16:03 Micro: Microbiology 11/05/21 19:31 Blood Culture - Preliminary Blood NEGATIVE TO DATE 11/05/21 19:28 Blood Culture - Preliminary Blood Gram positive maycol 11/06/21 06:03 MRSA Culture - Final Nose 11/06/21 06:03 Bacterial Antigens - Final Urine,Clean Catch A&P Assessment and plan (1) Sepsis: Status: Acute (2) Abdominal carcinomatosis: Status: Acute (3) Spontaneous bacterial peritonitis: Status: Acute (4) COVID: Status: Acute (5) Acute kidney injury: Status: Acute Plan # Severe Sepsis -Likely secondary sponatneous bacterial peritonitis vs left lower lobe pneumonia +/- effusion currently on empiric imipenem and vancomycin which will be continued bllood cx / corynebacterium, likely contaminant, repeat with am labs, adeqquately covered with vanc -off vasopressors today # Hypoxic respiratory failure, multifactorial related to pulmonary edema, pleural effusion, COVID 19 pneumonia, ascites cauusing poor inspiratory effort -CT CAP with large left pleural effusion with left lower lobe atelectasis possible pneumonia -COVID-19 positive, increasing infiltrates today which may be related to COVID vs pulm edema - Currently on lasix 40mg iv q12h, received 60mg iv this am - Was continued on NS @ 100cc/hr overnight which has been discontinued - Elevated BNP related to fluid overload - large ascites, unable to get paracentesis over the weekend for cx and ascitic fluid analysis as no IR or critical care available over the weekend, procedure not performed by gen/surg computer numerical control operator. Will likely need IR guided paracentesis & potential thoracentesis on Monday. Unable to be transferred to another center due to non availability of ICU beds at other places. - Currently on Bipap, high risk of progressing to mechanical ventilation from respiratory fatigue . - Precedex drip for anxiety, releive work of breathing # COVID 19: on remdisivir, dexamethasone . Add baricitinib given escalating 02 requrements, CRP trending up to 500.scheduled nebulization with dduoneb and budesonide. 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 Cr trending up, likely 2/2 ATN from sepsis. Renal consult. Urine lytes, uric acid level. Attestations Medical Necessity Statement*: ongoing admission for resp distress, sepsis, LASHAUN, iv abx, iv diuresis, paracentesis Critical Care Time: The high probability of a clinically significant, sudden or life threatening deterioration of the patient's [respiratory, renal, circulatory] system(s) required my full and direct attention, intervention and personal management. The critical care time is as shown. This time is in addition to time spent performing any reported procedures but includes the following: [x] Data and vital sign review and interpretation [x] Patient assessment, examination and intervention [x] Documentation [x] Medication orders and management Critical Care Time (min): 60 Coding Level of Care Code Acute Dynamite Shooter for [facility] Fwd Diagnoses Sepsis A41.9 Abdominal carcinomatosis C76.2 Spontaneous bacterial peritonitis K65.2 COVID U07.1 Acute kidney injury N17.9
--- NOTE | 2021-11-07 10:00 | PC.NURSE ---
recieved this am very anxious and very short of breath on heated high flow at this time Doctor called and abg done and changed to bipap. Lasix given and dilaudid iv given notified family of above . visited pt outside of glass door aware of status... on covid isolation
[2021-11-07] MEDS: cholecalciferol (vitamin D3) 1,000 unit Tablet 1000 UNIT PO (10:07)
[2021-11-07 10:08] LABS: ABG PCO2 31.7 mmHg (35-45); ABG PH Result 7.36 (7.35-7.45); Arterial Blood Gas Hematocrit 33.4 % (37-47); Base Excess ABG -6.6 mmol/L (-2.0-2.0); Blood Gas Allen Test Pos; Blood Gas Sample Type Arterial; HCO3 ABG 17.9 mmol/L (22-26); PO2 ABG 60.7 mmHg (80.0-100.0)
[2021-11-07] MEDS: ascorbic acid 500 mg Tablet PO ×2 (10:08→18:09)
[2021-11-07] MEDS: heparin 5,000 unit/mL INJ 1 mL 5000 UNIT SUBCUT ×2 (10:08→22:15)
[2021-11-07] MEDS: zinc gluconate 50 mg Tablet PO (10:08)
[2021-11-07] MEDS: docusate sodium 100 mg Capsule PO ×2 (10:08→18:09)
[2021-11-07 10:09] LABS: Blood Gas Operator Identificat ED; Blood Gas Sample Site Radial, left; Oxygen Device BIPAP
[2021-11-07] MEDS: dexmedeTOMIDine 0.9 % NaCL 400 MCG/100 ML PREMIX IV ×2 (10:09→18:14)
--- NOTE | 2021-11-07 12:00 | PC.NURSE ---
remains on bipap more comfortable at this time has episodes of anxiety , started on precedex gtt this am .. abdomen remain distended and taught and painful
[2021-11-07 16:26] LABS: Lactate (Lactic Acid level) 2.9 mmol/L (0.5-2.2)
[2021-11-07 16:48] LABS: Alanine Aminotransferase 15 U/L (0-33); Albumin Level 3.3 g/dL (3.5-5.2); Alkaline Phosphatase 90 IU/L (35-105); Anion Gap 23.8 (5-19); Aspartate Amino Transferase 35 U/L (0-32); Blood Urea Nitrogen 43 mg/dL (6-20); Carbon Dioxide 15 mmol/L (22-29); Chloride 102 mmol/L (98-107); Globulin 3.3 g/dL (1.3-4.6); Glucose 108 mg/dL (65-115); NT Pro B Type Natriuretic Pept 15717 pg/mL (0-125); Osmolality Calculated 293 mOsm/kg (285-295); Potassium 4.8 mmol/L (3.5-5.1); Sodium 136 mmol/L (136-145); Total Bilirubin 1.7 mg/dL (0.15-1.2); Total Protein 6.6 g/dL (6.6-8.7)
[2021-11-07 17:01] LABS: C Reactive Protein 515.1 mg/L (0.0-4.9)
[2021-11-07 18:10] LABS: Uric Acid 8.2 mg/dL (2.4-5.7)
[2021-11-07] MEDS: pantoprazole 40 mg SDV IVP (22:15)
[2021-11-07] MEDS: vancomycin 1,250 MG/250 ML PIGGYBACK 200 MG IV (22:15)
[2021-11-08] VITALS (58 sets, daily range): BP systolic 78–183; BP diastolic 51–115; PULSE 72–94; RESP 16–39; TEMP 36.6–38.6; O2SAT 88–100
[2021-11-08] MEDS: dexmedeTOMIDine 0.9 % NaCL 400 MCG/100 ML PREMIX 13.44 MCG IV (00:36)
[2021-11-08] MEDS: HYDROmorphone 1 mg/mL INJ 1 mL 0.5 MG IVP (02:56)
[2021-11-08] MEDS: ipratropium-albuterol 3 mL Neb INHALATION ×6 (03:33→23:14)
[2021-11-08] MEDS: remdesivir 100 MG in sodium chloride 0.9% (100 ml) 80 ML IV (05:00)
[2021-11-08] MEDS: dexamethasone 10 mg/mL INJ 6 MG IVP (05:00)
[2021-11-08] MEDS: dexmedeTOMIDine 0.9 % NaCL 400 MCG/100 ML PREMIX 23.04 MCG IV (05:19)
--- NOTE | 2021-11-08 06:00 | US_ITS ---
WS: [id number] ULTRASOUND-GUIDED THERAPEUTIC AND DIAGNOSTIC PARACENTESIS Procedure, risks, and complications have been explained to the patient. Consent is obtained. Utilizing aseptic technique and 1% buffered lidocaine, a small dermatome was made through which a 5 F rench Yueh catheter was inserted. Approximately 1600 ml of dark red peritoneal fluid was obtained wi thout difficulty. No complications encountered. Specimen is collected for analysis as requested. US/ paracentesis abd w [id number] IMPRESSION: Uncomplicated paracentesis yielding 1600 ml of peritoneal fluid. Aspirate is dark red fluid, nonclotted. Specimen collected for analysis as requested.
--- NOTE | 2021-11-08 07:02 | P.CONIM_ITS ---
Providers/Reason For Consult Consulting Physician/Specialty*: janene garcia md / telenephrology Reason for Consult*: kwabena Requesting Physician: Dr. Garnica Attending Physician: Lacey Garnica MD Primary Care Provider: Deepa Farris MD History of Present Illness History of Present Illness Genny Diaz is a 56 year old female past med hx of depression, hypertension, GERD. [place] [facility] [place] w/ abdominal pain and distention, nausea, vomiting.? The pt has extensive bulky peritoneal carcinomatosis compatible with metastatic disease involving the ventral abdominal peritoneum and pelvis, with prominent metastatic implants in the left upper quadrant and left lower quadrant, with a cystic lesion in the mid pelvis measuring 4.2 x 4.6 cm.? The Patient was diagnosed with radiographic evidence suggestive of peritoneal carcinomatosis, ovarian cancer as a primary or primary peritoneal carcinoma.? However other primary malignancies were not excluded.? She underwent a CT guided biopsy, with the paracentesis on 11-04-21.? Biopsy revealed metastatic adenocarcinoma of right peritoneal mass.? The Patient was admitted with hypotension, tachypneic. and a creatinine 1.6 mg/dl. I do not have old cr levels. She had a CTA w/ contrast on admission w/ large volume ascites and pleural effusions.? she was treated w/ ivf, abx- vancomycin and primaxin for sepsis. She is also covid -19+ pt on dexamathasone and remdesivir. she grew out a + blood cx- requires levophed. her cr has risen and she is more sob- bipap and lasix. she has a lactic acidosis. Review of Systems Narrative: weak, sob, ascites on bipap, nausea, abd distention Medications/Allergies Home Medications Medication Instructions Recorded Confirmed Last Taken Type amitriptyline 25 mg tablet 25 mg PO BEDTIME 03/02/21 11/07/21 11/03/21 History amlodipine 5 mg tablet 5 mg PO DAILY 03/02/21 11/07/21 11/04/21 History fluoxetine 40 mg capsule 40 mg PO DAILY 03/02/21 11/07/21 11/04/21 History lisinopril 20 mg tablet 20 mg PO BID 03/02/21 11/07/21 11/03/21 History orllnsr-suvuxxxbtadye-beqmyzoh 250 1 tab PO Q6H PRN 11/03/21 11/07/21 11/02/21 History mg-250 mg-65 mg tablet (Excedrin Migraine) ketoconazole 2 % shampoo 1 applic TOPICAL .2x weekly PRN 11/03/21 11/07/21 Unknown History magnesium 500 mg tablet 15 mg PO DAILY 11/03/21 11/07/21 11/01/21 History apremilast 30 mg tablet (Otezla) 30 mg PO BID 11/07/21 11/07/21 Unknown History Allergies Allergy/AdvReac Type Severity Reaction Status Date / Time No Known Allergies Allergy Verified 11/05/21 16:07 Current Medications Generic Name Dose Route Start Last Admin Trade Name Freq PRN Reason Stop Dose Admin Albuterol/Ipratropium 3 ml 11/06/21 04:00 11/08/21 03:33 Ipratropium-Albuterol 3 Ml Neb INHALATION 3 ml Q4H.RESPIRATORY WALE Administration Ascorbic Acid 500 mg 11/06/21 09:00 11/07/21 18:09 Ascorbic Acid 500 Mg Tablet PO 500 mg BID WALE Administration Baricitinib 4 mg 11/07/21 09:30 11/07/21 10:07 Baricitinib 2 Mg Tablet PO 11/20/21 09:31 4 mg Q24H WALE Administration Budesonide 0.5 mg 11/06/21 08:00 11/07/21 19:51 Budesonide 0.5 Mg/2 Ml Neb INHALATION 0.5 mg BID.RESPIRATORY WALE Administration Budesonide 0.5 mg 11/07/21 20:00 11/07/21 23:02 Budesonide 0.5 Mg/2 Ml Neb INHALATION Not Given BID.RESPIRATORY WALE Dexamethasone 6 mg 11/07/21 06:00 11/08/21 05:00 Dexamethasone 10 Mg/Ml Inj IVP 6 mg Q24H WALE Administration Docusate Sodium 100 mg 11/06/21 09:00 11/07/21 18:09 Docusate Sodium 100 Mg Capsule PO 100 mg BID WALE Administration Furosemide 40 mg 11/07/21 09:30 11/07/21 22:15 Furosemide 10 Mg/Ml Sdv 4ml IVP 40 mg Q12H WALE Administration Heparin Sodium (Porcine) 5,000 unit 11/05/21 21:49 11/07/21 22:15 Heparin 5,000 Unit/Ml Inj 1 Ml SUBCUT 5,000 unit Q12H WALE Administration Hydromorphone HCl 0.5 mg 11/05/21 21:25 11/08/21 02:56 Hydromorphone 1 Mg/Ml Inj 1 Ml IVP 0.5 mg Q4H PRN Administration PAIN Vancomycin/PEG/NADA/Lysine/Water 1,250 mg in 250 mls @ 250 mls/hr 11/05/21 23:00 11/07/21 22:15 Vancocin IV 200 mls/hr Q24H WALE Administration Remdesivir 100 mg/ Sodium 80 mls @ 100 mls/hr 11/07/21 06:00 11/08/21 05:00 Chloride IV 11/10/21 06:47 100 mls/hr Q24H WALE Administration dexmedeTOMIDine 0.9 % NaCL 400 mcg in 100 mls @ 0 mls/hr 11/07/21 10:00 11/08/21 05:19 Precedex IV 1.2 mcg/kg/hr .Q0M WALE 23.04 mls/hr Administration Protocol Per Protocol Imipenem/Cilastatin Sodium 250 100 mls @ 200 mls/hr 11/07/21 12:30 11/08/21 00:35 mg/ Sodium Chloride IV 200 mls/hr Q6H WALE Administration Protocol Norepinephrine Bitartrate 4 mg 254 mls @ 0 mls/hr 11/07/21 22:45 11/07/21 23:09 / Dextrose IV 6 mcg/min .Q0M WALE 22.86 mls/hr Administration Protocol Per Protocol Oxycodone/Acetaminophen 1 tab 11/06/21 14:47 11/06/21 19:50 Oxycodone-Apap 5-325 Mg Tablet PO 1 tab Q6H PRN Administration MODERATE PAIN Pantoprazole Sodium 40 mg 11/05/21 21:49 11/07/21 22:15 Pantoprazole 40 Mg Sdv IVP 40 mg Q24H WALE Administration Vitamin D 1,000 unit 11/06/21 09:00 11/07/21 10:07 Cholecalciferol (Vitamin D3) 1,000 Unit Tablet PO 1,000 unit DAILY WALE Administration Zinc Gluconate 50 mg 11/06/21 09:00 11/07/21 10:08 Zinc Gluconate 50 Mg Tablet PO 50 mg DAILY WALE Administration PFSH Acute PFSH: Medical History Anxiety Depression HTN (hypertension) Surgical History History of cholecystectomy No pertinent past surgical history Family History Mother Colon cancer Social History Smoking and tobacco status: never smoked Alcohol intake: never History of recent travel: No Vitals/I&O/Wt Last Vital Signs Temp 97.8 F 11/08/21 03:30 Pulse 78 11/08/21 05:46 Resp 28 H 11/08/21 04:00 BP 93/61 11/08/21 04:00 Pulse Ox 97 11/08/21 04:00 11/07/21 11/08/21 11/08/21 22:59 06:59 14:59 Intake Total 123.424 / 2308.424 173.920 / 2482.344 Output Total 150 / 150 Balance 123.424 / 2308.424 23.920 / 2332.344 Weight last 48 hrs Weight 76.799 kg Physical Exam Const: OTHER: on bipap 18/10 fio2 100%, sob, uncomfortable vs noted- levo heent- nc/at, eomi lungs ronchi and crackles heart reg abd distended, + bs, tender ext b/l edema neuro- lethargic Urinary Catheter Management: Anaya Latex: Cath Placed During This Visit: yes Reason for Continuing Indwelling Catheter: Accurate Measurement of Urinary O utput in Critically Ill Patients Urinary Catheter Date of Insertion: 11/06/21 Urinary Catheter Time of Insertion: 15:10 Data : 11/07/21 03:45 11/07/21 16:03 Micro: Microbiology 11/08/21 05:17 Blood Culture - Preliminary Blood SPECIMEN COLLECTED 11/08/21 05:17 Blood Culture - Preliminary Blood SPECIMEN COLLECTED 11/05/21 19:28 Blood Culture - Preliminary Blood Corynebacterium species 11/06/21 06:03 Urine Culture - Preliminary Urine,Clean Catch Bacterial Antigens - Final A&P Assessment and plan (1) Acute kidney injury: 56 yr old female depression, htn, GERD. recent dx of met ca w/ severe abd ascites. 1. COVID-19 + per ID 2. oliguric KWABENA- likely GIGI/ ATN/ Covid- 19 nephropathy -u/a 2+ 5-10 wbc -no hydronephrosis on imaging -place dialysis catheter -will dialyze soon 3. inc AGMA from KWABENA and lactic acidosis w/ resp compensation -repeat lacate 4. hypoxemia and SOB-agree w/ thoracentesis and paracentesis if possible 5. met ca- ct reviewed- . Severe peritoneal carcinomatosis in multiple locations within the peritoneal cavity and mesentery.? This could be of ovarian or gastrointestinal origin.? No definite ovarian mass is visualized. There is soft tissue caking along the sigmoid colon with likely invasion of the colon wall.? This is most likely peritoneal carcinomatosis.? Primary malignancy of the colon is not excluded.. Large amount of ascites which is of fluid density.? No evidence is suggests intraperitoneal hemorrhage. -BIOPSY C/W METASTATIC ADENOCA -pt needs onc eval- Q prognosis Status: Acute Plan seen and examine dw/ rn call center- telehealth visit- time spent 55 minutes -pt needs onc eval- Q prognosis Consult Attestations Medical Necessity Statement: met ca, kwabena, acidosis, effusions, ascites Time Spent in Patient Care: Greater than 35 minutes (>than 50% of time spent in counselling and/or direct pt care on unit) . Critical Care Time: over 45 minutes of critical care for KWABENA, acidosis, hypoxemia Coding Level of Care Code Acute Certified Prosthetist Vice President for g Fwd Diagnoses Acute kidney injury N17.9
[2021-11-08 07:21] LABS: Basophils # 0.1 10^3/uL (0.0-0.1); Basophils % 0.6 %; Hematocrit 32.1 % (37.0-47.0); Hemoglobin 9.9 g/dL (11.5-15.3); Lymphocytes # 0.7 10^3/uL (0.8-4.8); Mean Corpuscular HGB Conc 30.8 g/dL (30.0-36.0); Mean Corpuscular Hemoglobin 24.3 pg (28.0-34.0); Mean Corpuscular Volume 78.9 fl (81-99); Mean Platelet Volume 10.5 fL (7.4-10.4); Monocytes # 0.4 10^3/uL (0.2-0.9); Monocytes % 2.5 %; Neutrophils # 13.25 10^3/uL (1.8-7.7); Neutrophils % 91.3 %; Nucleated Red Blood Cells % 0.1 %; Platelet Count 402 10^3/cmm (130-400); Red Blood Count 4.07 10^6/uL (4.1-5.3); Red Cell Distribution Width 15.9 % (12.1-15.1); White Blood Count 14.5 10^3/uL (4.0-10.0)
[2021-11-08 07:35] LABS: Alanine Aminotransferase 21 U/L (0-33); Albumin Level 3.1 g/dL (3.5-5.2); Alkaline Phosphatase 148 IU/L (35-105); Anion Gap 21.4 (5-19); Aspartate Amino Transferase 79 U/L (0-32); Blood Urea Nitrogen 61 mg/dL (6-20); Calcium 8.1 mg/dL (8.5-10.5); Carbon Dioxide 18 mmol/L (22-29); Chloride 99 mmol/L (98-107); Globulin 3.8 g/dL (1.3-4.6); Glomerular Filtration Rate 14.9 mL/min (90-130); Glucose 121 mg/dL (65-115); Magnesium 2.3 mg/dL (1.7-2.3); Osmolality Calculated 297 mOsm/kg (285-295); Phosphorus 3.7 mg/dL (2.5-4.5); Potassium 4.4 mmol/L (3.5-5.1); Sodium 134 mmol/L (136-145); Total Bilirubin 1.2 mg/dL (0.15-1.2); Total Protein 6.9 g/dL (6.6-8.7)
[2021-11-08] MEDS: budesonide 0.5 mg/2 mL Neb INHALATION ×3 (07:44→19:59)
[2021-11-08 08:24] LABS: Lactate (Lactic Acid level) 1.8 mmol/L (0.5-2.2); Uric Acid 10.8 mg/dL (2.4-5.7)
[2021-11-08] MEDS: FUROsemide 10 mg/mL SDV 4mL 40 MG IVP ×2 (08:51→20:54)
[2021-11-08 09:13] LABS: Vancomycin Random 31.6 ug/mL (20.0-40.0)
--- NOTE | 2021-11-08 09:18 | PC.CHAP ---
Pastoral Care Encounter/Spiritual Assessment Type of Contact [] Declined border machine operator visit [] Patient/Family/Request visit [] Outpatient visit [] Follow-up visit [] Physician referral [] Code/Alert [x] Routine visit [] Staff referral [] Actively dying [x] Patient sleeping [] Family support [] [] Out of room [] Palliative care [] [] Receiving care in room [] Pre-surgical visit [] Trauma [] Long length of stay [x] ICU visit [x] Other: vent Relational/Emotional Strength [] Patient feels connected with others/family/visitors/staff [] Distress [] Loneliness/isolation [] Abandonment Spirituality of Patient [] Person of Fanny [] Attends Gnosticist of their Fanny [] Believes in Prayer [] Reads Bible or Cheondoism materials [] There are Spiritual issues to be addressed Security Compliance Specialist Interventions [x] Prayer [] Active listening [] Non-anxious presence [] Spiritual/emotional support [] Crisis/trauma care [] Spiritual counseling [] Bereavement support [] Provided bereavement packet [] Provided Bible/devotional materials [] Provided toy/stuffed animal, coloring book to patient or family member [] Provided Communion [] Anointing/[place] [] Salvation [x] Completed spiritual assessment [] Other: Impact on Illness or Injury [] Angry [] Fearful [] Anxious [] Often cries [] Exhaustion [] Unable to work [] Unable to attend pentecostal [] Unable to walk/stand [] Unable to read [] Unable to drive [] Unable to eat/drink [] Unable to sleep [] Unable to be with family [] Patient intubated [] Other: Summary Time spent with patient
[2021-11-08 09:22] LABS: INR 1.37 (0.8-1.2)
[2021-11-08 09:39] LABS: ABG PCO2 27.4 mmHg (35-45); ABG PH Result 7.43 (7.35-7.45); Arterial Blood Gas Hematocrit 29.6 % (37-47); Base Excess ABG -5.3 mmol/L (-2.0-2.0); Blood Gas Allen Test Pos; Blood Gas Sample Type Arterial; Carboxyhemoglobin 0.7 %THgb (0.4-20.1); HCO3 ABG 18.1 mmol/L (22-26); Ionized Calcium Level - ABG 1.2 mmol/L (1.1-1.4); Methemoglobin < 0.0 % (0.4-1.5); Oxygen Saturation ABG 95.6; PO2 ABG 65.7 mmHg (80.0-100.0); Potassium Level - ABG 4.2 mmol/L (3.5-5.0); Total Hemoglobin 9.7 g/dL (12-16)
[2021-11-08 09:40] LABS: Blood Gas Operator Identificat ED; Blood Gas Sample Site Radial, right; Oxygen Device BIPAP
[2021-11-08 10:13] LABS: Hepatitis C Virus Antibody Non-Reactive (Nonreactive)
[2021-11-08 12:14] LABS: Apprearance, Body Fluid CLOUDY; Color, Body Fluid RED
[2021-11-08 12:20] LABS: Body Fluid Polynuclear #Cells 0.643; Body Fluid Specific Gravity 1.015; Body Fluid WBC 663 /uL
[2021-11-08] MEDS: dexmedeTOMIDine 0.9 % NaCL 400 MCG/100 ML PREMIX 19.2 MCG IV (14:32)
[2021-11-08 14:46] LABS: Albumin Body Fluid 2.8 g/dL
[2021-11-08 14:48] LABS: Cholesterol Body Fluid 26 mg/dL (0-200); Fluid Alkaline Phos. 29 IU/L; Total Protein Body Fluid 4.9 g/dL; Triglycerides Body Fluid 36 mg/dL (0-150); Uric Acid Body Fluid 9 mg/dL
[2021-11-08] MEDS: albumin 12.5 GM/50 ML VIAL IV (15:26)
--- NOTE | 2021-11-08 16:45 | PM.CONSULT ---
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 Genny Diaz is a 56 year old female with a past medical history of depression, hypertension, GERD, presented to [facility] on 11/05/2021 due to abdominal pain, abdominal distention, nausea, vomiting.? she has had abdominal pain, abdominal distention, work-up through her primary care provider if to Dr. Amor's office showed evidence of cystic lesion in the right ovary, echogenicity in the left hepatic lobe, and extensive bulky peritoneal carcinomatosis compatible with metastatic disease involving the ventral abdominal peritoneum and pelvis, with prominent metastatic implants in the left upper quadrant and left lower quadrant, with a cystic lesion in the mid pelvis measuring 4.2 x 4.6 cm.? In addition there was evidence of rectal wall thickening.? Also left pleural effusion.? Patient was diagnosed with radiographic evidence suggestive of peritoneal carcinomatosis, ovarian cancer as a primary or primary peritoneal carcinoma.? However other primary malignancies were not excluded.? She underwent a CT guided biopsy, with the paracentesis on 11/04/2021.? Biopsy so far show metastatic adenocarcinoma of right peritoneal mass biopsy.? Patient since then has had increasing abdominal distention, abdominal pain, nausea, vomiting, no fevers, decreased appetite.? Her admission blood pressure was 89/55, respiratory rates were 20s 30s, temp 97.5, saturating 92 on room air, she has been given a liter bolus, blood pressure is 99/61, creatinine 1.6, white blood cell count 10.1, lactic acid 3.5, CRP 142, pro-Dmitry 5.33, bili 1.3.? CT scan of abdomen and pelvis shows large volume ascites.? Labs are consistent with septic shock likely secondary to SBP/left lower lobe pneumonia and COVID-19 positive. She was started on broad-spectrum antibiotic coverage. with imipenem and vancomycin. Blood cultures grew 1/4 corynebacterium species. She underwent paracentesis today and then drained 1600 cc adrianne-colored fluid. Fluid studies showed neutrophilic predominance greater than 250 suspicious for spontaneous bacterial peritonitis. Renal team were consulted due to worsening LASHAUN in patient with septic shock requiring Levophed 10. He was planned for possible hemodialysis and I was consulted for placement of HD catheter. Patient seen at bedside today multiple times She appeared alert and able to answer questions-complaint abdominal discomfort Had 1600 cc adrianne-colored fluid drained through paracentesis today Off pressors and saturating 92% on 6 L nasal cannula Other labs and imaging reviewed Review of Systems General: Reports: 10 or more systems reviewed and unremarkable except in HPI and below Medications/Allergies Home Medications Medication Instructions Recorded Confirmed Last Taken Type amitriptyline 25 mg tablet 25 mg PO BEDTIME 03/02/21 11/07/21 11/03/21 History amlodipine 5 mg tablet 5 mg PO DAILY 03/02/21 11/07/21 11/04/21 History fluoxetine 40 mg capsule 40 mg PO DAILY 03/02/21 11/07/21 11/04/21 History lisinopril 20 mg tablet 20 mg PO BID 03/02/21 11/07/21 11/03/21 History rvbxifm-rjjkegekynzen-kxafjyim 250 1 tab PO Q6H PRN 11/03/21 11/07/21 11/02/21 History mg-250 mg-65 mg tablet (Excedrin Migraine) ketoconazole 2 % shampoo 1 applic TOPICAL .2x weekly PRN 11/03/21 11/07/21 Unknown History magnesium 500 mg tablet 15 mg PO DAILY 11/03/21 11/07/21 11/01/21 History apremilast 30 mg tablet (Otezla) 30 mg PO BID 11/07/21 11/07/21 Unknown History Allergies Allergy/AdvReac Type Severity Reaction Status Date / Time No Known Allergies Allergy Verified 11/05/21 16:07 Current Medications Generic Name Dose Route Start Last Admin Trade Name Freq PRN Reason Stop Dose Admin Albuterol/Ipratropium 3 ml 11/06/21 04:00 11/08/21 11:04 Ipratropium-Albuterol 3 Ml Neb INHALATION 3 ml Q4H.RESPIRATORY WALE Administration Ascorbic Acid 500 mg 11/06/21 09:00 11/08/21 10:07 Ascorbic Acid 500 Mg Tablet PO Not Given BID WALE Baricitinib 4 mg 11/07/21 09:30 11/08/21 10:07 Baricitinib 2 Mg Tablet PO 11/20/21 09:31 Not Given Q24H WALE Budesonide 0.5 mg 11/06/21 08:00 11/08/21 07:44 Budesonide 0.5 Mg/2 Ml Neb INHALATION 0.5 mg BID.RESPIRATORY WALE Administration Budesonide 0.5 mg 11/07/21 20:00 11/08/21 08:00 Budesonide 0.5 Mg/2 Ml Neb INHALATION 0.5 mg BID.RESPIRATORY WALE Administration Dexamethasone 6 mg 11/07/21 06:00 11/08/21 05:00 Dexamethasone 10 Mg/Ml Inj IVP 6 mg Q24H WALE Administration Docusate Sodium 100 mg 11/06/21 09:00 11/08/21 10:07 Docusate Sodium 100 Mg Capsule PO Not Given BID WALE Furosemide 40 mg 11/07/21 09:30 11/08/21 08:51 Furosemide 10 Mg/Ml Sdv 4ml IVP 40 mg Q12H WALE Administration Heparin Sodium (Porcine) 5,000 unit 11/05/21 21:49 11/08/21 10:08 Heparin 5,000 Unit/Ml Inj 1 Ml SUBCUT Not Given Q12H WALE Hydromorphone HCl 0.5 mg 11/05/21 21:25 11/08/21 02:56 Hydromorphone 1 Mg/Ml Inj 1 Ml IVP 0.5 mg Q4H PRN Administration PAIN Vancomycin/PEG/NADA/Lysine/Water 1,250 mg in 250 mls @ 250 mls/hr 11/05/21 23:00 11/07/21 22:15 Vancocin IV 200 mls/hr Q24H WALE Administration Remdesivir 100 mg/ Sodium 80 mls @ 100 mls/hr 11/07/21 06:00 11/08/21 14:34 Chloride IV 11/10/21 06:47 Infused Q24H WALE Infusion dexmedeTOMIDine 0.9 % NaCL 400 mcg in 100 mls @ 0 mls/hr 11/07/21 10:00 11/08/21 14:32 Precedex IV 1 mcg/kg/hr .Q0M WALE 19.2 mls/hr Administration Protocol Per Protocol Imipenem/Cilastatin Sodium 250 100 mls @ 200 mls/hr 11/07/21 12:30 11/08/21 14:34 mg/ Sodium Chloride IV Infused Q6H WALE Infusion Protocol Norepinephrine Bitartrate 4 mg 254 mls @ 0 mls/hr 11/07/21 22:45 11/08/21 14:33 / Dextrose IV Infused .Q0M WALE Titration Protocol Per Protocol Oxycodone/Acetaminophen 1 tab 11/06/21 14:47 11/06/21 19:50 Oxycodone-Apap 5-325 Mg Tablet PO 1 tab Q6H PRN Administration MODERATE PAIN Pantoprazole Sodium 40 mg 11/05/21 21:49 11/07/21 22:15 Pantoprazole 40 Mg Sdv IVP 40 mg Q24H WALE Administration Vitamin D 1,000 unit 11/06/21 09:00 11/08/21 10:07 Cholecalciferol (Vitamin D3) 1,000 Unit Tablet PO Not Given DAILY WALE Zinc Gluconate 50 mg 11/06/21 09:00 11/08/21 10:07 Zinc Gluconate 50 Mg Tablet PO Not Given DAILY WALE PFSH Acute PFSH: Medical History Anxiety Depression HTN (hypertension) Surgical History History of cholecystectomy No pertinent past surgical history Family History Mother Colon cancer Social History Smoking and tobacco status: never smoked Alcohol intake: never History of recent travel: No Vitals/I&O/Wt Last Vital Signs Temp 101.4 F H 11/08/21 12:00 Pulse 87 11/08/21 10:55 Resp 30 H 11/08/21 10:55 BP 93/61 11/08/21 04:00 Pulse Ox 99 11/08/21 10:55 11/08/21 11/08/21 11/08/21 06:59 14:59 22:59 Intake Total 273.920 / 2582.344 734.000 / 734.000 Output Total 150 / 150 Balance 123.920 / 2432.344 734.000 / 734.000 Physical Exam Narrative: EXAM NARRATIVE: General: alert, NAD HEENT: conj clear, EOMI, PERRL, mmm, Neck: supple, no meningismus Heme: no cervical LAP Pulmonary: Reduced breath sounds on left lower lung zone, CTAB, no wheezing, rhonchi, crackles Cardiovascular: rrr, nl s1s2, no mrg Abdomen: Distended, mildly generalized tender, no r/g, bs+ Extremities: pulses +, no edema, no c/c : no CVA tenderness Skin: intact, no rash MSK: no back or neck pain Neurologic: grossly intact Urinary Catheter Management: Anaya Latex: Cath Placed During This Visit: yes Reason for Continuing Indwelling Catheter: Accurate Measurement of Urinary Output in Critically Ill Patients Urinary Catheter Date of Insertion: 11/06/21 Urinary Catheter Time of Insertion: 15:10 Data : 11/08/21 06:55 11/08/21 06:55 Other Labs: Radiology Impressions Chest/Abdomen/Pelvis CT 11/05/21 17:12 IMPRESSION: 1. No evidence for pulmonary embolus. 2. No evidence for metastatic disease. 3. Left pleural effusion with left lower lobe atelectasis. 4. Scattered atelectasis and scarring in both lungs. IMPRESSION: 1. Severe peritoneal carcinomatosis in multiple locations within the peritoneal cavity and mesentery. This could be of ovarian or gastrointestinal origin. No definite ovarian mass is visualized. 2. There is soft tissue caking along the sigmoid colon with likely invasion of the colon wall. This is most likely peritoneal carcinomatosis. Primary malignancy of the colon is not excluded. 3. Large amount of ascites which is of fluid density. No evidence is suggests intraperitoneal hemorrhage. COMMENTS: Consistent with the [employer]'s Incidental Findings Committee white paper (J Am Nighat Radiol 2018): Any incidental renal lesion less than 1 cm or classified as too small to characterize, or any incidental cystic renal lesion characterized as simple-appearing, is likely benign. No follow-up imaging is recommended for these lesions per consensus recommendations based on imaging criteria. Venous Duplex 11/06/21 22:31 IMPRESSION: No evidence of deep vein thrombosis. Chest X-Ray 11/07/21 08:59 IMPRESSION: 1. Patchy bibasilar airspace opacities may reflect atelectasis versus pneumonia. 2. Mild interstitial pulmonary edema with small bilateral pleural effusions. Paracentesis Ultrasound 11/08/21 06:00 IMPRESSION: Uncomplicated paracentesis yielding 1600 ml of peritoneal fluid. Aspirate is dark red fluid, nonclotted. Specimen collected for analysis as requested. Laboratory Results WBC 14.5 10^3/uL (4.0-10.0) H 11/08/21 06:55 RBC 4.07 10^6/uL (4.1-5.3) L 11/08/21 06:55 Hgb 9.9 g/dL (11.5-15.3) L 11/08/21 06:55 Hct 32.1 % (37.0-47.0) L 11/08/21 06:55 MCV 78.9 fl (81-99) L D 11/08/21 06:55 MCH 24.3 pg (28.0-34.0) L 11/08/21 06:55 MCHC 30.8 g/dL (30.0-36.0) D 11/08/21 06:55 RDW 15.9 % (12.1-15.1) H 11/08/21 06:55 Plt Count 402 10^3/cmm (130-400) H 11/08/21 06:55 MPV 10.5 fL (7.4-10.4) H 11/08/21 06:55 Neut % (Auto) 91.3 % 11/08/21 06:55 Lymph % (Auto) 5.0 % 11/08/21 06:55 [place] % (Auto) 2.5 % 11/08/21 06:55 Eos % (Auto) 0.0 % 11/08/21 06:55 Baso % (Auto) 0.6 % 11/08/21 06:55 Neut # (Auto) 13.25 10^3/uL (1.8-7.7) H 11/08/21 06:55 Lymph # (Auto) 0.7 10^3/uL (0.8-4.8) L 11/08/21 06:55 [place] # (Auto) 0.4 10^3/uL (0.2-0.9) 11/08/21 06:55 Eos # (Auto) 0.0 10^3/uL (0.0-0.8) 11/08/21 06:55 Baso # (Auto) 0.1 10^3/uL (0.0-0.1) 11/08/21 06:55 Nucleated RBC % (auto) 0.1 % 11/08/21 06:55 Total Counted 100 (0-100) 11/07/21 03:45 Atypical Lymphs % 0.0 % (0-5) 11/07/21 03:45 Absolute Neutrophils 7.1 10^3/cmm (1.4-6.5) H 11/07/21 03:45 Segmented Neutrophils 49 % 11/07/21 03:45 Abs Segm Neuts (Man) 4.6 10/cmm (1.6-7.1) 11/07/21 03:45 Band Neutrophils 26.0 % 11/07/21 03:45 Abs Band Neuts (Man) 2.4 10^3/cmm (0.0-1.2) H 11/07/21 03:45 Absolute Lymphocytes 1.2 10^3/cmm (1.2-3.4) 11/07/21 03:45 Lymphocytes (Manual) 13 % 11/07/21 03:45 Monocytes (Manual) 2.0 % 11/07/21 03:45 Absolute Monocytes 0.2 10^3/cmm (0.1-0.6) 11/07/21 03:45 Eosinophils (Manual) 0 % 11/07/21 03:45 Absolute Eosinophils 0.0 10^3/cmm (0.0-0.7) 11/07/21 03:45 Basophils (Manual) 0.0 % 11/07/21 03:45 Absolute Basophils 0.0 10^3/cmm (0.0-0.2) 11/07/21 03:45 Metamyelocytes 10.0 % 11/07/21 03:45 Nucleated RBCs # 0.0 /100WBC 11/08/21 06:55 Toxic Granulation 1+ H 11/07/21 03:45 Platelet Estimate Normal (Normal) 11/07/21 03:45 Poikilocytosis Trace 11/07/21 03:45 Anisocytosis 1+ H 11/07/21 03:45 PT 17.20 SECONDS (12.1-14.9) H 11/08/21 06:55 INR 1.37 (0.8-1.2) H 11/08/21 06:55 D-Dimer 4.98 ug/mIFEU (0-0.59) H 11/05/21 01:40 Specimen Type Arterial 11/08/21 09:29 Sample Site Radial, right 11/08/21 09:29 ABG pH 7.43 (7.35-7.45) 11/08/21 09:29 ABG pCO2 27.4 mmHg (35-45) L 11/08/21 09:29 ABG pO2 65.7 mmHg (80.0-100.0) L 11/08/21 09:29 ABG HCO3 18.1 mmol/L (22-26) L 11/08/21 09:29 ABG O2 Saturation 95.6 11/08/21 09:29 ABG Base Excess -5.3 mmol/L (-2.0-2.0) L 11/08/21 09:29 James Test Pos 11/08/21 09:29 A-a O2 Gradient 24.0 mmHg (5-10) H 11/08/21 09:29 Hematocrit 29.6 % (37-47) L 11/08/21 09:29 Hgb O2 Saturation 95.0 % (95-100) 11/08/21 09:29 Carboxyhemoglobin 0.7 %THgb (0.4-20.1) 11/08/21 09:29 Methemoglobin < 0.0 % (0.4-1.5) L 11/08/21 09:29 Total Hemoglobin 9.7 g/dL (12-16) L 11/08/21 09:29 Sodium 136.0 mmol/L (131-143) 11/08/21 09:29 Potassium 4.2 mmol/L (3.5-5.0) 11/08/21 09:29 Glucose 130.0 mg/dL (70-115) H 11/08/21 09:29 Ionized Calcium 1.2 mmol/L (1.1-1.4) 11/08/21 09:29 O2 Delivery Device Bipap 11/08/21 09:29 O2 Liters/Min 13.0 % 11/07/21 01:47 FiO2 40.0 % 11/08/21 09:29 Back Filler Operator ID Ed 11/08/21 09:29 Sodium 134 mmol/L (136-145) L 11/08/21 06:55 Potassium 4.4 mmol/L (3.5-5.1) 11/08/21 06:55 Chloride 99 mmol/L (98-107) 11/08/21 06:55 Carbon Dioxide 18 mmol/L (22-29) L 11/08/21 06:55 Anion Gap 21.4 (5-19) H 11/08/21 06:55 BUN 61 mg/dL (6-20) H 11/08/21 06:55 Creatinine 3.2 mg/dL (0.5-0.9) H 11/08/21 06:55 GFR Calculation 14.9 mL/min (90-130) L 11/08/21 06:55 Glucose 121 mg/dL (65-115) H 11/08/21 06:55 Estimat Average Glucose 108 11/05/21 16:34 Hemoglobin A1c 5.4 % (4.0-6.0) 11/05/21 16:34 Calculated Osmolality 297 mOsm/kg (285-295) H 11/08/21 06:55 Lactic Acid 4.6 mmol/L (0.5-2.2) H* 11/06/21 07:29 Lactic Acid (Sepsis) 4.1 mmol/L (0.5-2.2) H* 11/06/21 10:29 Lactate 1.8 mmol/L (0.5-2.2) 11/08/21 06:55 Uric Acid 10.8 mg/dL (2.4-5.7) H 11/08/21 06:55 Calcium 8.1 mg/dL (8.5-10.5) L 11/08/21 06:55 Phosphorus 3.7 mg/dL (2.5-4.5) 11/08/21 06:55 Magnesium 2.3 mg/dL (1.7-2.3) 11/08/21 06:55 Total Bilirubin 1.2 mg/dL (0.15-1.2) 11/08/21 06:55 AST 79 U/L (0-32) H 11/08/21 06:55 ALT 21 U/L (0-33) 11/08/21 06:55 Alkaline Phosphatase 148 IU/L (35-105) H 11/08/21 06:55 Creatine Kinase 58 U/L (26-192) 11/05/21 16:34 Troponin T Baseline 7 ng/L (0-10) 11/05/21 23:00 Troponin T 120 Minute 6.00 ng/L (0-10) 11/06/21 01:20 Delta Troponin T Not Reportable 11/06/21 01:20 Troponin T Hi Sens 6Hr 6.42 ng/L (0-10) 11/06/21 06:58 Troponin T Hi Sens 6Hr Delta -0.6 ng/L (0-12) L 11/06/21 06:58 C-Reactive Protein 515.1 mg/L (0.0-4.9) H 11/07/21 16:03 NT-Pro-B Natriuret Pep 49314 pg/mL (0-125) H 11/07/21 16:03 Total Protein 6.9 g/dL (6.6-8.7) 11/08/21 06:55 Albumin 3.1 g/dL (3.5-5.2) L 11/08/21 06:55 Globulin 3.8 g/dL (1.3-4.6) 11/08/21 06:55 Lipase 8 U/L (13-60) L 11/05/21 16:34 Procalcitonin 5.33 ng/mL (0-0.5) H 11/05/21 16:34 TSH 1.76 uIU/mL (0.27-4.20) 11/05/21 23:00 Urine Color Yellow (Yellow) 11/06/21 06:03 Urine Appearance Sl hazy (CLEAR) 11/06/21 06:03 Urine pH 5 (5-7) 11/06/21 06:03 Ur Specific [place] 1.015 (1.005-1.030) 11/06/21 06:03 Urine Protein Trace (Negative) 11/06/21 06:03 Urine Glucose (UA) Norm (Normal) 11/06/21 06:03 Urine Ketones Negative (Negative) 11/06/21 06:03 Urine Blood 2+ (Negative) H 11/06/21 06:03 Urine Nitrate Negative (Negative) 11/06/21 06:03 Urine Bilirubin Neg (Negative) 11/06/21 06:03 Urine Urobilinogen 1 mg/dL (Negative) H 11/06/21 06:03 Ur Leukocyte Esterase Trace (Negative) H 11/06/21 06:03 Urine RBC Rare /hpf (0-2) 11/06/21 06:03 Urine WBC 5-10 /hpf (0-5) H 11/06/21 06:03 Ur Squamous Epith Cells 0-4 /hpf (0-5) H 11/06/21 06:03 Amorphous Sediment Not Reportable 11/06/21 06:03 Urine Bacteria 2+ /hpf (NONE) H 11/06/21 06:03 Hyaline Casts 5-10 /lpf H 11/06/21 06:03 Coarse Granular Casts 0-4 /lpf H 11/06/21 06:03 Fluid Color Red 11/05/21 Unknown Fluid Appearance Cloudy 11/05/21 Unknown Fluid Specific Grav 1.015 11/05/21 Unknown Fluid pH 8.0 11/05/21 Unknown Fluid WBC 663 /uL 11/05/21 Unknown Fluid RBC 54.000 10^3/uL 11/05/21 Unknown Fld Polynuclear WBCs # 0.643 11/05/21 Unknown Fld Polynuclear WBCs % 97.000 % 11/05/21 Unknown Fl Mononucl WBCs #(Auto) 0.020 11/05/21 Unknown Fl Mononuclear % Auto 3.000 % 11/05/21 Unknown Fluid Glucose 3.0 mg/dL 11/05/21 Unknown Fluid Total Protein 4.9 g/dL 11/05/21 Unknown Fluid Albumin 2.8 g/dL 11/05/21 Unknown Fluid LDH TNP 11/05/21 Unknown Fluid Amylase TNP 11/05/21 Unknown Fluid Alk Phosphatase 29 IU/L 11/05/21 Unknown Fluid Cholesterol 26 mg/dL (0-200) 11/05/21 Unknown Fluid Triglycerides 36 mg/dL (0-150) 11/05/21 Unknown Fluid Uric Acid 9 mg/dL 11/05/21 Unknown Vancomycin Trough 17.0 ug/mL (10-15) H 11/07/21 21:50 Random Vancomycin 31.6 ug/mL (20.0-40.0) 11/08/21 08:16 Serum Ketones Negative (Negative) 11/05/21 16:34 Coronavirus 229E (PCR) Not detected (NOT DETECT) 11/05/21 17:41 Hepatitis C Antibody Non-reactive (Nonreactive) 11/07/21 21:56 SARS-CoV-2 (PCR) Detected (NOT DETECT) A 11/05/21 17:41 Micro: Microbiology 11/06/21 06:03 Urine Culture - Final Urine,Clean Catch Bacterial Antigens - Final 11/08/21 05:17 Blood Culture - Preliminary Blood SPECIMEN COLLECTED 11/08/21 05:17 Blood Culture - Preliminary Blood SPECIMEN COLLECTED 11/05/21 19:28 Blood Culture - Preliminary Blood Corynebacterium species A&P Assessment and plan (1) Spontaneous bacterial peritonitis: Status: Acute (2) Septic shock: Status: Acute (3) COVID: Status: Acute (4) Acute kidney injury: Status: Acute (5) Abdominal carcinomatosis: Status: Acute Plan #Septic shock likely secondary to Spontaneous bacterial peritonitis/left lower lobe pneumonia-improving #Left pleural effusion likely secondary to large volume ascites versus infection #COVID-19 positive-requiring 6 L nasal cannula #LASHAUN-likely secondary to prerenal due to septic shock/contrast induced/COVID-19 #CT-guided biopsy of abdominal mass positive for metastatic adenocarcinoma-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 -Mentation improved; On precedex for anxiety -Currently on 6 L nasal cannula-off BiPAP and saturating 90% -Left pleural effusion likely secondary to large volume ascites to improve with Lasix -Currently on baricitinib, remdesivir and Decadron for COVID-19 pneumonia -need close monitoring for saturation -Off Levophed today morning-restart if needed to keep maps greater than 65 -S/p paracentesis 1600 cc adrianne-colored fluid-fluid analysis neutrophils > 250 suggestive of SBP-currently on meropenem -Cultures from peritoneal fluid are pending; SAAG <1.1 suggestive of exudative -LASHAUN with bicarb 18 and potassium 4.4-improving urine output-Received Lasix and albumin -We will continue to monitor urine output, electrolytes, renal functions-if continues to worsen we will plan for hemodialysis, nephrology on board -Elevated procalcitonin can be secondary to LASHAUN vs sepsis; currrently covered with vancomycin and meropenem, as pt is responding and off pressors, recommended to contiue until Ascitic fluid cultures are available - if pt clinically deteriorates- she needs CT abdomon/ pelvis to rule out abscess. - Once pt is clincally stable, Pt to follow up with Oncology for metastatic adenocarcinoma - Overall prognosis: guarded - Patient and family ( and daughter) updated at bedside. - DVT ppx: Heparin - GI ppx: PPI Recommendations conveyed to hospitalist, RN and RT taking care of the patient. Consult Attestations Medical Necessity Statement: septic shock secondary to SBP/LLL pna on broad spectrum antibiotics, low dose pressorS, improving LASHAUN, COVID 19 ON 6L nc in pt with underlying recently diagnosed Metastatic adenocarcinoma with possible peritoneal carcinomatosis vs ovarian origin- need close ICU monitoring at atleast 48 hrs Time Spent in Patient Care: Greater than 35 minutes (>than 50% of time spent in counselling and/or direct pt care on unit). Critical Care Time: The high probability of a clinically significant, sudden or life threatening deterioration of the patient's [respiratory, mina, infectious, neurological] system(s) required my full and direct attention, intervention and personal management. The critical care time is as shown. This time is in addition to time spent performing any reported procedures but includes the following: [x] Data and vital sign review and interpretation [x] Patient assessment, examination and intervention [x] Documentation [x] Medication orders and management Critical Care Time (min): 76 Coding Level of Care Code New Pt Acute Utility Assembler for Chg Fwd Patient Type New History Comprehensive Exam Comprehensive Medical Decision Making High Complexity Diagnoses Spontaneous bacterial peritonitis K65.2 Septic shock A41.9; R65.21 COVID U07.1 Acute kidney injury N17.9 Abdominal carcinomatosis C76.2 Time Spent (min) 76 Comment including bed side sonogram
[2021-11-08] MEDS: dexmedeTOMIDine 0.9 % NaCL 400 MCG/100 ML PREMIX 15.36 MCG IV (17:51)
[2021-11-08] MEDS: docusate sodium 100 mg Capsule PO (17:51)
[2021-11-08] MEDS: ascorbic acid 500 mg Tablet PO (17:51)
--- NOTE | 2021-11-08 19:25 | PC.NURSE ---
Pt was able to be placed on 6L NC with o2 sat in 90's. A&O x 4.
--- NOTE | 2021-11-08 20:13 | PM.PN ---
Subjective Subjective: Interval history: She is tired, lethargic, but wakes up, answers questions, follows commands. Denies pain or discomfort. Breathing is comfortable at the time of my visit with BiPAP support. Has been having abdominal distention. Vitals/I&O/Wt Last Vital Signs Temp 97.9 F 11/08/21 15:30 Pulse 80 11/08/21 20:01 Resp 18 11/08/21 20:01 BP 104/80 11/08/21 18:01 Pulse Ox 91 11/08/21 20:01 11/08/21 11/08/21 11/08/21 06:59 14:59 22:59 Intake Total 273.920 / 2582.344 734.000 / 734.000 215.952 / 949.952 Output Total 150 / 150 1900 / 1900 Balance 123.920 / 2432.344 734.000 / 734.000 -1684.048 / -950.048 Physical Exam Const: COMMON NORMALS: patient oriented x3 GENERAL APPEARANCE: lethargic ORIENTATION/CONSCIOUSNESS: Yes lethargic HENMT: COMMON NORMALS: oropharynx normal Neck/C-Spine: COMMON NORMALS: no JVD Resp: COMMON NORMALS: normal respiratory effort and clear to auscultation bilaterally AUSCULTATION: clear to auscultation bilaterally Cardio: COMMON NORMALS: no JVD, regular rhythm, S1 normal heart sound present, S2 normal heart sound present and No murmurs present (Cardio) RHYTHM: regular rhythm HEART SOUNDS: S1 normal heart sound present and S2 normal heart sound present GI: COMMON NORMALS: Soft to palpation INSPECTION: Yes abdominal distension PALPATION: Yes Soft to palpation and Yes Tenderness to palpation present (GI) (mild) Extremity: COMMON NORMALS: no joint enlargement and no pedal edema Neuro: COMMON NORMALS: patient oriented x3 and moves all extremities SENSORIUM/ORIENTATION: Yes lethargic Skin: COMMON NORMALS: no rashes or lesions noted GENERAL SKIN EXAM: no rashes or lesions noted Urinary Catheter Management: Anaya Latex: Cath Placed During This Visit: yes Reason for Continuing Indwelling Catheter: Accurate Measurement of Urinary Output in Critically Ill Patients Urinary Catheter Date of Insertion: 11/06/21 Urinary Catheter Time of Insertion: 15:10 Data : 11/08/21 06:55 11/08/21 06:55 Micro: Microbiology 11/06/21 06:03 Urine Culture - Final Urine,Clean Catch Bacterial Antigens - Final 11/08/21 05:17 Blood Culture - Preliminary Blood SPECIMEN COLLECTED 11/08/21 05:17 Blood Culture - Preliminary Blood SPECIMEN COLLECTED A&P Assessment and plan (1) Sepsis: Septic shock. Weaning down on pressor requirement. Still requiring low rate pressor despite temporarily coming off. Maintain blood pressure. Continue empiric antibiotics. Possible peritonitis with neutrophilic predominance, 660 WBCs, 97% PMNs. Follow-up culture results. Appreciate pulmonary consultation. Additional assessment by bedside ultrasound currently not revealing loculations. Continue to biotic treatment. Continue to reassess condition. Status: Acute Qualifiers: Severe sepsis shock status: with septic shock (2) Spontaneous bacterial peritonitis: Continue vancomycin, Primaxin at this time. Follow-up peritoneal fluid cultures. Status post paracentesis 11/08. Status: Acute (3) Abdominal carcinomatosis: Unknown primary, adenocarcinoma. Resume follow-up with oncology after discharge. Status: Acute (4) COVID: Continue Decadron, remdesivir. Oxygen support. Breathing treatments. Continue heparin VTE prophylaxis. May need to discontinue baricitinib given concern for peritonitis. Follow-up culture. Monitor condition. So far has shown gradual improvement. Status: Acute (5) Acute kidney injury: Nephrology recommendations appreciated. Creatinine so far had not improved. Continue supportive care, support blood pressure and she is coming off gradually off of pressors. Consideration for placement of hemodialysis catheter, initiation of hemodialysis discussed with patient, family. Continue to monitor for need for initiation of HD. Monitor I&O. Hold lisinopril. Status: Acute Plan Condition and plans discussed with family. Attestations Medical Necessity Statement*: Continue admission for assessment management of septic shock, acute kidney injury, respiratory failure in setting of possible peritonitis, severe COVID-19 in a lady with metastatic peritoneal carcinomatosis of unknown primary. Critical Care Time: The high probability of a clinically significant, sudden or life threatening deterioration of the patient's hemodynamic, respiratory, renal system(s), septic shock required my full and direct attention, intervention and personal management. The critical care time is as shown. This time is in addition to time spent performing any reported procedures but includes the following: x Data and vital sign review and interpretation x Patient assessment, examination and intervention x Documentation x Medication orders and management Critical Care Time (min): 55 Coding Level of Care Code Acute Phlebotomy Program Coordinator for Chg Fwd Diagnoses Sepsis A41.9 Severe sepsis shock status: with septic shock Abdominal carcinomatosis C76.2 Spontaneous bacterial peritonitis K65.2 COVID U07.1 Acute kidney injury N17.9
[2021-11-08] MEDS: pantoprazole 40 mg SDV IVP (20:54)
[2021-11-08] MEDS: heparin 5,000 unit/mL INJ 1 mL 5000 UNIT SUBCUT (20:54)
[2021-11-09] VITALS (50 sets, daily range): BP systolic 92–191; BP diastolic 51–121; PULSE 74–120; RESP 16–46; TEMP 36.6–36.8; O2SAT 85–98
[2021-11-09 03:40] LABS: Basophils # 0.1 10^3/uL (0.0-0.1); Basophils % 0.4 %; Hematocrit 29.9 % (37.0-47.0); Hemoglobin 9.2 g/dL (11.5-15.3); Lymphocytes # 0.9 10^3/uL (0.8-4.8); Lymphocytes % 5.7 %; Mean Corpuscular HGB Conc 30.8 g/dL (30.0-36.0); Mean Corpuscular Volume 78.1 fl (81-99); Mean Platelet Volume 10.8 fL (7.4-10.4); Monocytes # 0.4 10^3/uL (0.2-0.9); Monocytes % 2.8 %; Neutrophils % 89.5 %; Nucleated Red Blood Cells % 0.2 %; Platelet Count 303 10^3/cmm (130-400); Red Blood Count 3.83 10^6/uL (4.1-5.3); Red Cell Distribution Width 15.9 % (12.1-15.1); White Blood Count 15.2 10^3/uL (4.0-10.0)
[2021-11-09] MEDS: ipratropium-albuterol 3 mL Neb INHALATION ×5 (03:45→20:01)
[2021-11-09 04:01] LABS: D Dimer 6.26 ug/mIFEU (0-0.59)
[2021-11-09 04:04] LABS: Potassium, Radom Urine 32 mmol/L; Urine Creatinine 68 mg/dL (28-217); Urine Random Chloride 68 mmol/L; Urine Random Sodium 58 mmol/L
[2021-11-09 04:10] LABS: Alanine Aminotransferase 29 U/L (0-33); Albumin Level 3.1 g/dL (3.5-5.2); Alkaline Phosphatase 118 IU/L (35-105); Anion Gap 21.1 (5-19); Aspartate Amino Transferase 120 U/L (0-32); C Reactive Protein 278.5 mg/L (0.0-4.9); Calcium 9.4 mg/dL (8.5-10.5); Carbon Dioxide 15 mmol/L (22-29); Chloride 102 mmol/L (98-107); Ferritin 517 ng/mL (15-150); Globulin 3.5 g/dL (1.3-4.6); Glucose 118 mg/dL (65-115); Iron 8 ug/dL (37-145); Magnesium 2.4 mg/dL (1.7-2.3); Osmolality Calculated 304 mOsm/kg (285-295); Percent Saturation 7.4 % (20-50); Phosphorus 4.4 mg/dL (2.5-4.5); Potassium 4.1 mmol/L (3.5-5.1); Sodium 134 mmol/L (136-145); Total Bilirubin 0.9 mg/dL (0.15-1.2); Total Iron Binding Capacity 107 mcg/dl; Total Protein 6.6 g/dL (6.6-8.7); Unsaturated Iron Binding 99 ug/dL (112-347)
[2021-11-09 04:11] LABS: Lactate (Lactic Acid level) 1.1 mmol/L (0.5-2.2)
[2021-11-09 04:16] LABS: 25 Hydroxy Vitamin D 18 ng/mL (30-100)
[2021-11-09 04:29] LABS: Blood Urea Nitrogen 83 mg/dL (6-20)
[2021-11-09 04:32] LABS: Add RBC Morph Yes; Parathyroid Hormone 68.3 pg/mL (15-65); RBC Morph Comp No; Slide Review Slide Review Perform; Vancomycin Random 22.6 ug/mL (20.0-40.0)
[2021-11-09 04:33] LABS: Anisocytosis 1+; Ovalocytes 1+; Target Cells 1+
[2021-11-09 04:34] LABS: Poikilocytosis 1+
[2021-11-09] MEDS: dexmedeTOMIDine 0.9 % NaCL 400 MCG/100 ML PREMIX 11.52 MCG IV (04:35)
--- NOTE | 2021-11-09 06:57 | PM.PN ---
Subjective Subjective: Interval history: more awake, is urinating. using nc 02. feels better s/p 1.5 l paracentesis. remains on pressors Medications: Reviewed: Yes Medication Review Details: Current Medications Acetaminophen (Acetaminophen 325 Mg Tablet) 650 mg PO Q6H PRN PRN Reason: Mild/Mod Pain Or Temp >/= 101 Albuterol/Ipratropium (Ipratropium-Albuterol 3 Ml Neb) 3 ml INHALATION Q4H.RESPIRATORY WALE Last Admin: 11/09/21 03:45 Dose: 3 ml Documented by: Ascorbic Acid (Ascorbic Acid 500 Mg Tablet) 500 mg PO BID [facility] Last Admin: 11/08/21 17:51 Dose: 500 mg Documented by: Baricitinib (Baricitinib 2 Mg Tablet) 4 mg PO Q24H [facility] Stop: 11/20/21 09:31 Last Admin: 11/08/21 10:07 Dose: Not Given Documented by: Budesonide (Budesonide 0.5 Mg/2 Ml Neb) 0.5 mg INHALATION BID.RESPIRATORY WALE Last Admin: 11/08/21 19:59 Dose: 0.5 mg Documented by: Budesonide (Budesonide 0.5 Mg/2 Ml Neb) 0.5 mg INHALATION BID.RESPIRATORY WALE Last Admin: 11/08/21 19:59 Dose: Not Given Documented by: Dexamethasone (Dexamethasone 10 Mg/Ml Inj) 6 mg IVP Q24H [facility] Last Admin: 11/08/21 05:00 Dose: 6 mg Documented by: Docusate Sodium (Docusate Sodium 100 Mg Capsule) 100 mg PO BID [facility] Last Admin: 11/08/21 17:51 Dose: 100 mg Documented by: Furosemide (Furosemide 10 Mg/Ml Sdv 4ml) 40 mg IVP Q12H [facility] Last Admin: 11/08/21 20:54 Dose: 40 mg Documented by: Heparin Sodium (Porcine) (Heparin 5,000 Unit/Ml Inj 1 Ml) 5,000 unit SUBCUT Q12H [facility] Last Admin: 11/08/21 20:54 Dose: 5,000 unit Documented by: Hydromorphone HCl (Hydromorphone 1 Mg/Ml Inj 1 Ml) 0.5 mg IVP Q4H PRN PRN Reason: PAIN Last Admin: 11/08/21 02:56 Dose: 0.5 mg Documented by: Vancomycin/PEG/NADA/Lysine/Water (Vancocin) 1,250 mg in 250 mls @ 250 mls/hr IV Q24H [facility] Last Admin: 11/07/21 22:15 Dose: 200 mls/hr Documented by: Remdesivir 100 mg/ Sodium (Chloride) 80 mls @ 100 mls/hr IV Q24H [facility] Stop: 11/10/21 06:47 Last Infusion: 11/08/21 14:34 Dose: Infused Documented by: dexmedeTOMIDine 0.9 % NaCL (Precedex) 400 mcg in 100 mls @ 0 mls/hr IV .Q0M [facility]; Protocol Last Admin: 11/09/21 04:35 Dose: 0.6 mcg/kg/hr, 11.52 mls/hr Documented by: Imipenem/Cilastatin Sodium 250 (mg/ Sodium Chloride) 100 mls @ 200 mls/hr IV Q6H [facility]; Protocol Last Admin: 11/09/21 01:27 Dose: 200 mls/hr Documented by: Norepinephrine Bitartrate 4 mg (/ Dextrose) 254 mls @ 0 mls/hr IV .Q0M [facility]; Protocol Last Titration: 11/08/21 14:33 Dose: Infused Documented by: Naloxone HCl (Naloxone 0.4 Mg/Ml Sdv) 0.1 mg IVP Q2M PRN PRN Reason: OPIATERV Ondansetron HCl (Ondansetron 2 Mg/Ml Sdv 2 Ml) 4 mg IVP Q8H PRN PRN Reason: vomiting, or N/V if npo Oxycodone/Acetaminophen (Oxycodone-Apap 5-325 Mg Tablet) 1 tab PO Q6H PRN PRN Reason: MODERATE PAIN Last Admin: 11/06/21 19:50 Dose: 1 tab Documented by: Pantoprazole Sodium (Pantoprazole 40 Mg Sdv) 40 mg IVP Q24H [facility] Last Admin: 11/08/21 20:54 Dose: 40 mg Documented by: Vitamin D (Cholecalciferol (Vitamin D3) 1,000 Unit Tablet) 1,000 unit PO DAILY [facility] Last Admin: 11/08/21 10:07 Dose: Not Given Documented by: Zinc Gluconate (Zinc Gluconate 50 Mg Tablet) 50 mg PO DAILY [facility] Last Admin: 11/08/21 10:07 Dose: Not Given Documented by: Vitals/I&O/Wt Last Vital Signs Temp 98.3 F 11/09/21 04:00 Pulse 76 11/09/21 06:00 Resp 18 11/09/21 03:45 BP 177/97 11/09/21 02:30 Pulse Ox 94 11/09/21 03:45 11/08/21 11/08/21 11/09/21 14:59 22:59 06:59 Intake Total 734.000 / 734.000 215.952 / 949.952 77.728 / 1027.680 Output Total 1900 / 1900 550 / 2450 Balance 734.000 / 734.000 -1684.048 / -950.048 -472.272 / -1422.320 Physical Exam Const: OTHER: comfortable using nc 02 vs noted- levo remains- above vs are incorrect heent- nc/at, eomi lungs -improved, dec b/l ronchi heart reg abd less distended, + bs, non tender ext b/l no leg edema neuro- a,a, o x 2+ Urinary Catheter Management: Anaya Latex: Cath Placed During This Visit: yes Reason for Continuing Indwelling Catheter: Accurate Measurement of Urinary Output in Critically Ill Patients Urinary Catheter Date of Insertion: 11/06/21 Urinary Catheter Time of Insertion: 15:10 Data : 11/09/21 03:24 11/09/21 03:24 Micro: Microbiology 11/08/21 05:17 Blood Culture - Preliminary Blood NEGATIVE TO DATE 11/08/21 05:17 Blood Culture - Preliminary Blood NEGATIVE TO DATE 11/06/21 06:03 Urine Culture - Final Urine,Clean Catch Bacterial Antigens - Final A&P Assessment and plan (1) Acute kidney injury: 56 yr old female depression, htn, GERD. recent dx of met ca w/ severe abd ascites. 1. COVID-19 + per ID -remdesivir, steroids -vanco by levels 2. oliguric LASHAUN- likely GIGI/ ATN/ Covid- 19 nephropathy -u/a 2+ 5-10 wbc -no hydronephrosis on imaging -cr slowly rising- dec lasix- monitor uop and chemistries 3. resp alkalosis and inc AGMA from LASHAUN and lactic acidosis w/ resp compensation -repeat lacate normal ph was balanced yesterday 4. hypoxemia and SOB-improved s/p paracentesis 5. met ca- ct reviewed- . Severe peritoneal carcinomatosis in multiple locations within the peritoneal cavity and mesentery.? This could be of ovarian or gastrointestinal origin.? No definite ovarian mass is visualized. There is soft tissue caking along the sigmoid colon with likely invasion of the colon wall.? This is most likely peritoneal carcinomatosis.? Primary malignancy of the colon is not excluded.. Large amount of ascites which is of fluid density.? No evidence is suggests intraperitoneal hemorrhage. -BIOPSY C/W METASTATIC ADENOCA anemia- iron sat 7 %, ferritin 517 w/ covid-19- may be FERNANDO -pt needs onc eval- Q prognosis 6. hyponatremia- from lashaun and q from some siadh from ca 7. elevated uric acid- repeat normal phos, high ca- unlikely TLS 8. 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 Coding Level of Care Code Acute Radiation Technician for [facility] Diagnoses Acute kidney injury N17.9
[2021-11-09 08:00] LABS: Uric Acid 12.1 mg/dL (2.4-5.7)
[2021-11-09] MEDS: budesonide 0.5 mg/2 mL Neb INHALATION ×2 (08:02→20:01)
[2021-11-09 08:40] LABS: Vancomycin Random 19.9 ug/mL (20.0-40.0)
[2021-11-09] MEDS: dexamethasone 10 mg/mL INJ 6 MG IVP (08:43)
[2021-11-09] MEDS: FUROsemide 10 mg/mL SDV 4mL 40 MG IVP (08:43)
[2021-11-09] MEDS: heparin 5,000 unit/mL INJ 1 mL 5000 UNIT SUBCUT ×2 (08:43→22:04)
[2021-11-09] MEDS: ascorbic acid 500 mg Tablet PO ×2 (08:44→17:16)
[2021-11-09] MEDS: zinc gluconate 50 mg Tablet PO (08:44)
[2021-11-09] MEDS: cholecalciferol (vitamin D3) 1,000 unit Tablet 1000 UNIT PO (08:44)
[2021-11-09] MEDS: docusate sodium 100 mg Capsule PO ×2 (08:44→17:16)
[2021-11-09] MEDS: remdesivir 100 MG in sodium chloride 0.9% (100 ml) 80 ML IV (08:44)
[2021-11-09] MEDS: ergocalciferol (vitamin D2) 50,000 Unit Capsule 50000 UNIT PO (10:51)
--- NOTE | 2021-11-09 13:05 | PM.PN ---
Subjective Subjective: Interval history: She is feeling somewhat better today. Abdominal distention is better after paracentesis yesterday. Mild intermittent cough. Denies shortness of breath and is comfortable on current oxygen settings. No nausea vomiting or diarrhea. Vitals/I&O/Wt Last Vital Signs Temp 98.3 F 11/09/21 04:00 Pulse 74 11/09/21 11:50 Resp 24 H 11/09/21 11:40 BP 120/77 11/09/21 09:01 Pulse Ox 98 11/09/21 11:40 11/08/21 11/09/21 11/09/21 22:59 06:59 14:59 Intake Total 215.952 / 949.952 177.728 / 1127.680 449.552 / 449.552 Output Total 1900 / 1900 550 / 2450 Balance -1684.048 / -950.048 -372.272 / -1322.320 449.552 / 449.552 Physical Exam Const: COMMON NORMALS: no acute distress and patient oriented x3 OTHER: Awake and more energetic today. HENMT: COMMON NORMALS: oropharynx normal Neck/C-Spine: COMMON NORMALS: no JVD Resp: COMMON NORMALS: normal respiratory effort and clear to auscultation bilaterally AUSCULTATION: clear to auscultation bilaterally Cardio: COMMON NORMALS: no JVD, regular rhythm, S1 normal heart sound present, S2 normal heart sound present and No murmurs present (Cardio) RHYTHM: regular rhythm HEART SOUNDS: S1 normal heart sound present and S2 normal heart sound present GI: COMMON NORMALS: Normal to inspection, nondistended, normoactive bowel sounds present, Soft to palpation and non-tender INSPECTION: Yes abdominal distension (Less) PALPATION: Yes Soft to palpation Extremity: COMMON NORMALS: no joint enlargement and no pedal edema Neuro: COMMON NORMALS: patient oriented x3 and moves all extremities Skin: COMMON NORMALS: no rashes or lesions noted GENERAL SKIN EXAM: no rashes or lesions noted Urinary Catheter Management: Anaya Latex: Cath Placed During This Visit: yes Reason for Continuing Indwelling Catheter: Accurate Measurement of Urinary Output in Critically Ill Patients Urinary Catheter Date of Insertion: 11/06/21 Urinary Catheter Time of Insertion: 15:10 Data : 11/09/21 03:24 11/09/21 03:24 Micro: Microbiology 11/05/21 Unknown Gram Stain - Final Peritoneal Fluid Body Fluid Culture - Preliminary 11/08/21 05:17 Blood Culture - Preliminary Blood NEGATIVE TO DATE 11/08/21 05:17 Blood Culture - Preliminary Blood NEGATIVE TO DATE 11/06/21 06:03 Urine Culture - Final Urine,Clean Catch Bacterial Antigens - Final A&P Assessment and plan (1) Sepsis: Showing some gradual improvement, although still requiring low rate infusion of Levophed. This morning for micrograms per minute, now coming down to 2. Continue to wean down as tolerating, maintaining mean arterial pressure. Pneumonia, possible peritonitis based on cell count studies, although could be affected by malignancy. Follow-up culture. So far no results yet. No organisms from 11/05. Septic shock. Weaning down on pressor requirement. Still requiring low rate pressor despite temporarily coming off. Maintain blood pressure. Continue empiric antibiotics at this time. Leukocytosis persist, but so far without fever since yesterday. Possible peritonitis with neutrophilic predominance, 660 WBCs, 97% PMNs. Follow-up culture results. Status: Acute Qualifiers: Severe sepsis shock status: with septic shock (2) Spontaneous bacterial peritonitis: Continue vancomycin, Primaxin at this time. Follow-up peritoneal fluid cultures. Status post paracentesis 11/08. Fluid sample from biopsy on 11/05 without bacteria on Gram stain, follow-up. Status: Acute (3) Abdominal carcinomatosis: Unknown primary, adenocarcinoma. Resume follow-up with oncology after discharge. Updated Dr. Amor on her condition. Status: Acute (4) COVID: Continue Decadron, remdesivir. Oxygen support. Oxygen requirement with gradual improvement, down to 5 L currently. Breathing treatments. Continue heparin VTE prophylaxis. May need to discontinue baricitinib given concern for peritonitis. Follow-up culture. Monitor condition. So far has shown gradual improvement. Status: Acute (5) Acute kidney injury: Continue to observation, renal function not improved, but has been producing urine. Maintain blood pressures, has been coming off of pressor. Nephrology recommendations appreciated. Creatinine so far had not improved. Continue supportive care, support blood pressure and she is coming off gradually off of pressors. Consideration for placement of hemodialysis catheter, initiation of hemodialysis discussed with patient, family. Continue to monitor for need for initiation of HD. Monitor I&O. Hold lisinopril. Status: Acute Plan Condition and plans discussed with family. Discussed need for current isolation, discussed risk of transmission of COVID-19 infection given her diagnosis/symptoms is just from last . is not vaccinated. Discussed risk of severe illness. Attestations Medical Necessity Statement*: Continue admission for assessment of management of septic shock, possible peritonitis, severe COVID-19, acute kidney injury. Critical Care Time: The high probability of a clinically significant, sudden or life threatening deterioration of the patient's hemodynamic, renal, respiratory system(s), septic shock required my full and direct attention, intervention and personal management. The critical care time is as shown. This time is in addition to time spent performing any reported procedures but includes the following: x Data and vital sign review and interpretation x Patient assessment, examination and intervention x Documentation x Medication orders and management Critical Care Time (min): 38 Coding Level of Care Code Acute Tool Room Gear Machine Operator for [facility] Fwd Diagnoses Sepsis A41.9 Severe sepsis shock status: with septic shock Spontaneous bacterial peritonitis K65.2 Abdominal carcinomatosis C76.2 COVID U07.1 Acute kidney injury N17.9
[2021-11-09 16:45] LABS: Anion Gap 17.9 (5-19); Calcium 8.5 mg/dL (8.5-10.5); Carbon Dioxide 17 mmol/L (22-29); Chloride 102 mmol/L (98-107); Glomerular Filtration Rate 13.9 mL/min (90-130); Glucose 114 mg/dL (65-115); Osmolality Calculated 305 mOsm/kg (285-295); Potassium 3.9 mmol/L (3.5-5.1); Sodium 133 mmol/L (136-145)
[2021-11-09 16:47] LABS: Blood Urea Nitrogen 92 mg/dL (6-20)
[2021-11-09 17:15] LABS: Bilirubin Urine Neg (Negative); Blood Urine 3+ (Negative); Glucose Urine UA Norm (Normal); Ketones Urine Negative (Negative); Leukocyte Esterase Urine Negative (Negative); Nitrate Urine Negative (Negative); Protein Urine Trace (Negative); Specific Gravity, Urine 1.015 (1.005-1.030); Urine Appearance Clear (CLEAR); Urine Color Yellow (Yellow); Urobilinogen Urine Norm (Negative); pH Urine 5 (5-7)
[2021-11-09] MEDS: ondansetron 2 mg/ML SDV 2 mL 4 MG IVP (17:16)
[2021-11-09 17:18] LABS: Add Urine Culture? No; Bacteria Urine 1+ /hpf; Mucus Urine TRACE /hpf; RBC Urine 0-4 /hpf (0-2); Squamous Epithelial Cell Urine 0-4 /hpf (0-5)
[2021-11-09 18:06] LABS: Potassium, Radom Urine 37 mmol/L; Urine Random Chloride 52 mmol/L; Urine Random Sodium 46 mmol/L
[2021-11-09] MEDS: pantoprazole 40 mg SDV IVP (22:04)
[2021-11-09] MEDS: oxyCODONE-APAP 5-325 mg Tablet 1 TAB PO (22:15)
--- NOTE | 2021-11-09 23:34 | P.PN_ITS ---
Subjective Subjective: Interval history: -Patient seen at bedside today -No acute overnight events -Mentating well and currently FiO2 down to 3 L -Making good urine output and renal functions with still high BUN and creatinine plateaued -No plan for urgent hemodialysis and will monitor for urine output and electrolytes today -Labs and other imaging reviewed Medications: Reviewed: Yes Vitals/I&O/Wt Last Vital Signs Temp 97.8 F 11/09/21 20:00 Pulse 80 11/09/21 22:00 Resp 20 H 11/09/21 22:15 BP 105/65 11/09/21 20:00 Pulse Ox 93 11/09/21 20:04 11/09/21 11/09/21 11/10/21 14:59 22:59 06:59 Intake Total 689.552 / 689.552 509.762 / 1199.314 Output Total 1200 / 1200 Balance 689.552 / 689.552 -690.238 / -0.686 Physical Exam Narrative: EXAM NARRATIVE: General: alert, NAD HEENT: conj clear, EOMI, PERRL, mmm, Neck: supple, no meningismus Heme: no cervical LAP Pulmonary: Reduced breath sounds on left lower lung zone,, no wheezing, rhonchi, crackles Cardiovascular: rrr, nl s1s2, no mrg Abdomen: Distended, mildly generalized tender,? no r/g, bs+ Extremities: pulses +, no edema, no c/c : no CVA tenderness Skin: intact, no rash MSK: no back or neck pain Neurologic: grossly intact Urinary Catheter Management: Anaya Latex: Cath Placed During This Visit: yes Reason for Continuing Indwelling Catheter: Accurate Measurement of Urinary Output in Critically Ill Patients Urinary Catheter Date of Insertion: 11/06/21 Urinary Catheter Time of Insertion: 15:10 Data : 11/10/21 03:19 11/10/21 03:19 Micro: Microbiology 11/05/21 Unknown Mycobacterial Smear - Preliminary Body Fluids - Peritoneal 11/05/21 Unknown Gram Stain - Final Peritoneal Fluid Anaerobic Culture - Preliminary Body Fluid Culture - Preliminary 11/08/21 05:17 Blood Culture - Preliminary Blood NEGATIVE TO DATE 11/08/21 05:17 Blood Culture - Preliminary Blood NEGATIVE TO DATE A&P Assessment and plan (1) Spontaneous bacterial peritonitis: Status: Acute (2) Septic shock: Status: Acute (3) COVID: Status: Acute (4) Acute kidney injury: Status: Acute (5) Abdominal carcinomatosis: Status: Acute Plan #Septic shock likely secondary to Spontaneous bacterial peritonitis/left lower lobe pneumonia-improving #Left pleural effusion likely secondary to large volume ascites versus infection #COVID-19 positive-down to 3 L of nasal cannula #LASHAUN-likely secondary to prerenal due to septic shock/contrast induced/COVID-19 #CT-guided biopsy of abdominal mass positive for metastatic adenocarcinoma- 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 -Mentation improved; On precedex for anxiety -Currently down to 3 L on nasal cannula- -Left pleural effusion likely secondary to large volume ascites-diuresing well with Lasix -Currently on baricitinib, remdesivir and Decadron for COVID-19 pneumonia -need close monitoring for saturation -On Levophed 2 mics down from 6 mics to keep maps greater than 65 -S/p paracentesis 1600 cc adrianne-colored fluid-fluid analysis neutrophils > 250 suggestive of SBP-currently on imipenem -Cultures from peritoneal fluid are pending; SAAG <1.1 suggestive of exudative -LASHAUN with bicarb 17 and potassium 3.9-improving urine output-Received Lasix and albumin -Urine output good with Lasix -We will continue to monitor urine output, electrolytes, renal functions-if continues to worsen we will plan for hemodialysis, nephrology on board -Elevated procalcitonin can be secondary to LASHAUN vs sepsis; currrently covered with vancomycin and imipenem, as pt is responding and off pressors, recommended to contiue until Ascitic fluid cultures are available - if pt clinically deteriorates- she needs CT abdomon/ pelvis to rule out abscess. - Once pt is clincally stable, Pt to follow up with Oncology for metastatic adenocarcinoma - Overall prognosis: guarded - Patient and family ( and daughter) updated at bedside. -Renal diet as tolerated - DVT ppx: Heparin - GI ppx: PPI Recommendations conveyed to hospitalist, RN and RT taking care of the patient. Attestations Medical Necessity Statement*: Continue admission for assessment management of septic shock, hypoxia with severe COVID-19, LASHAUN Critical Care Time: The high probability of a clinically significant, sudden o r life threatening deterioration of the patient's hemodynamic, renal, respiratory system(s) required my full and direct attention, intervention and personal management. The critical care time is as shown. This time is in addition to time spent performing any reported procedures but includes the following: x Data and vital sign review and interpretation x Patient assessment, examination and intervention x Documentation x Medication orders and management Critical Care Time (min): 45 Coding Level of Care Code Established Pt Acute Harmonic Analyst for Chg Fwd Patient Type Established History Comprehensive Exam Comprehensive Medical Decision Making High Complexity Diagnoses Spontaneous bacterial peritonitis K65.2 Septic shock A41.9; R65.21 COVID U07.1 Acute kidney injury N17.9 Abdominal carcinomatosis C76.2 Time Spent (min) 45
[2021-11-09] MEDS: amitriptyline 25 mg Tablet PO (23:48)
[2021-11-10] VITALS (61 sets, daily range): BP systolic 101–127; BP diastolic 60–85; PULSE 89–110; RESP 16–39; TEMP 36.3–36.9; O2SAT 90–98
[2021-11-10] MEDS: LORazepam 2 mg/mL INJ 1 mL 1 MG IVP (00:56)
[2021-11-10 03:41] LABS: Basophils # 0.1 10^3/uL (0.0-0.1); Basophils % 0.4 %; Hematocrit 30.1 % (37.0-47.0); Hemoglobin 9.7 g/dL (11.5-15.3); Lymphocytes # 0.8 10^3/uL (0.8-4.8); Lymphocytes % 5.2 %; Mean Corpuscular HGB Conc 32.2 g/dL (30.0-36.0); Mean Corpuscular Hemoglobin 24.1 pg (28.0-34.0); Mean Corpuscular Volume 74.9 fl (81-99); Mean Platelet Volume 10.7 fL (7.4-10.4); Monocytes % 6.2 %; Neutrophils # 12.69 10^3/uL (1.8-7.7); Neutrophils % 78.7 %; Nucleated Red Blood Cells % 0.2 %; Platelet Count 330 10^3/cmm (130-400); Red Blood Count 4.02 10^6/uL (4.1-5.3); Red Cell Distribution Width 15.6 % (12.1-15.1); White Blood Count 16.1 10^3/uL (4.0-10.0)
[2021-11-10 04:03] LABS: Alanine Aminotransferase 35 U/L (0-33); Alkaline Phosphatase 134 IU/L (35-105); Aspartate Amino Transferase 125 U/L (0-32); Calcium 9.9 mg/dL (8.5-10.5); Carbon Dioxide 17 mmol/L (22-29); Chloride 103 mmol/L (98-107); Globulin 3.7 g/dL (1.3-4.6); Glomerular Filtration Rate 15.5 mL/min (90-130); Glucose 117 mg/dL (65-115); Magnesium 2.6 mg/dL (1.7-2.3); Osmolality Calculated 315 mOsm/kg (285-295); Phosphorus 5.1 mg/dL (2.5-4.5); Sodium 136 mmol/L (136-145); Total Bilirubin 0.7 mg/dL (0.15-1.2); Total Protein 6.7 g/dL (6.6-8.7); Uric Acid 13.7 mg/dL (2.4-5.7)
[2021-11-10 04:06] LABS: C Reactive Protein 177.7 mg/L (0.0-4.9)
[2021-11-10] MEDS: ipratropium-albuterol 3 mL Neb INHALATION ×6 (04:31→20:21)
[2021-11-10 04:43] LABS: D Dimer 5.51 ug/mIFEU (0-0.59)
[2021-11-10 04:47] LABS: Vancomycin Random 17.8 ug/mL (20.0-40.0)
[2021-11-10 05:39] LABS: Bacillus cereus group Not Detected (NOT DETECT); Bacillus subtillis group Not Detected (NOT DETECT); Corynebacterium Not Detected (NOT DETECT); Cutibacterium acnes (P.acnes) Not Detected (NOT DETECT); Enterococcus Not Detected (NOT DETECT); Enterococcus faecalis Not Detected (NOT DETECT); Enterococcus faecium Not Detected (NOT DETECT); Lactobacillus species Not Detected (NOT DETECT); Listeria Not Detected (NOT DETECT); Listeria monocytogenes Not Detected (NOT DETECT); Micrococcus Not Detected (NOT DETECT); Pan Candida Not Detected (NOT DETECT); Pan Gram-Negative Not Detected (NOT DETECT); Staphylococcus epidermidis Detected (NOT DETECT); Staphylococcus lugdunensis Not Detected (NOT DETECT); Staphylococcus species Detected (NOT DETECT); Streptococcus agalactiae Not Detected (NOT DETECT); Streptococcus anginosus group Not Detected (NOT DETECT); Streptococcus pneumoniae Not Detected (NOT DETECT); Streptococcus pyogenes Not Detected (NOT DETECT); Streptococcus species Not Detected (NOT DETECT); mecA Detected (NOT DETECT); mecC Not Detected (NOT DETECT)
[2021-11-10 05:42] LABS: Blood Urea Nitrogen 102 mg/dL (6-20)
[2021-11-10] MEDS: remdesivir 100 MG in sodium chloride 0.9% (100 ml) 80 ML IV (05:52)
[2021-11-10] MEDS: dexamethasone 10 mg/mL INJ 6 MG IVP (05:53)
[2021-11-10 06:39] LABS: Slide Review Slide Review Perform
--- NOTE | 2021-11-10 07:23 | PM.PN ---
Subjective Subjective: Interval history: confused. improved MS. on nc02. no n/v/f/c/rodriguez/d. sep. Medications: Reviewed: Yes Medication Review Details: Current Medications Acetaminophen (Acetaminophen 325 Mg Tablet) 650 mg PO Q6H PRN PRN Reason: Mild/Mod Pain Or Temp >/= 101 Albuterol/Ipratropium (Ipratropium-Albuterol 3 Ml Neb) 3 ml INHALATION Q4H.RESPIRATORY [facility] Last Admin: 11/10/21 04:31 Dose: 3 ml Documented by: Amitriptyline HCl (Amitriptyline 25 Mg Tablet) 25 mg PO BEDTIME [facility] Last Admin: 11/09/21 23:48 Dose: 25 mg Documented by: Ascorbic Acid (Ascorbic Acid 500 Mg Tablet) 500 mg PO BID [facility] Last Admin: 11/09/21 17:16 Dose: 500 mg Documented by: Baricitinib (Baricitinib 2 Mg Tablet) 4 mg PO Q24H [facility] Stop: 11/20/21 09:31 Last Admin: 11/09/21 08:44 Dose: 4 mg Documented by: Budesonide (Budesonide 0.5 Mg/2 Ml Neb) 0.5 mg INHALATION BID.RESPIRATORY [facility] Last Admin: 11/09/21 20:01 Dose: 0.5 mg Documented by: Budesonide (Budesonide 0.5 Mg/2 Ml Neb) 0.5 mg INHALATION BID.RESPIRATORY [facility] Last Admin: 11/10/21 00:15 Dose: Not Given Documented by: Dexamethasone (Dexamethasone 10 Mg/Ml Inj) 6 mg IVP Q24H [facility] Last Admin: 11/10/21 05:53 Dose: 6 mg Documented by: Docusate Sodium (Docusate Sodium 100 Mg Capsule) 100 mg PO BID [facility] Last Admin: 11/09/21 17:16 Dose: 100 mg Documented by: Ergocalciferol (Ergocalciferol (Vitamin D2) 50,000 Unit Capsule) 50,000 unit PO Q7D [facility] Last Admin: 11/09/21 10:51 Dose: 50,000 unit Documented by: Furosemide (Furosemide 10 Mg/Ml Sdv 4ml) 40 mg IVP DAILY [facility] Last Admin: 11/09/21 08:43 Dose: 40 mg Documented by: Heparin Sodium (Porcine) (Heparin 5,000 Unit/Ml Inj 1 Ml) 5,000 unit SUBCUT Q12H [facility] Last Admin: 11/09/21 22:04 Dose: 5,000 unit Documented by: Hydromorphone HCl (Hydromorphone 1 Mg/Ml Inj 1 Ml) 0.5 mg IVP Q4H PRN PRN Reason: PAIN Last Admin: 11/08/21 02:56 Dose: 0.5 mg Documented by: Vancomycin/PEG/NADA/Lysine/Water (Vancocin) 1,250 mg in 250 mls @ 250 mls/hr IV Q24H [facility] Last Admin: 11/07/21 22:15 Dose: 200 mls/hr Documented by: dexmedeTOMIDine 0.9 % NaCL (Precedex) 400 mcg in 100 mls @ 0 mls/hr IV .Q0M [facility]; Protocol Last Titration: 11/09/21 16:54 Dose: Infused Documented by: Imipenem/Cilastatin Sodium 250 (mg/ Sodium Chloride) 100 mls @ 200 mls/hr IV Q6H [facility]; Protocol Last Admin: 11/09/21 23:48 Dose: 200 mls/hr Documented by: Norepinephrine Bitartrate 4 mg (/ Dextrose) 254 mls @ 0 mls/hr IV .Q0M [facility]; Protocol Last Admin: 11/10/21 03:35 Dose: 4 mcg/min, 15.24 mls/hr Documented by: Naloxone HCl (Naloxone 0.4 Mg/Ml Sdv) 0.1 mg IVP Q2M PRN PRN Reason: OPIATERV Ondansetron HCl (Ondansetron 2 Mg/Ml Sdv 2 Ml) 4 mg IVP Q8H PRN PRN Reason: vomiting, or N/V if npo Last Admin: 11/09/21 17:16 Dose: 4 mg Documented by: Oxycodone/Acetaminophen (Oxycodone-Apap 5-325 Mg Tablet) 1 tab PO Q6H PRN PRN Reason: MODERATE PAIN Last Admin: 11/09/21 22:15 Dose: 1 tab Documented by: Pantoprazole Sodium (Pantoprazole 40 Mg Sdv) 40 mg IVP Q24H [facility] Last Admin: 11/09/21 22:04 Dose: 40 mg Documented by: Vitamin D (Cholecalciferol (Vitamin D3) 1,000 Unit Tablet) 1,000 unit PO DAILY [facility] Last Admin: 11/09/21 08:44 Dose: 1,000 unit Documented by: Zinc Gluconate (Zinc Gluconate 50 Mg Tablet) 50 mg PO DAILY [facility] Last Admin: 11/09/21 08:44 Dose: 50 mg Documented by: Vitals/I&O/Wt Last Vital Signs Temp 97.3 F L 11/10/21 05:01 Pulse 95 11/10/21 07:00 Resp 34 H 11/10/21 07:00 BP 119/71 11/10/21 07:00 Pulse Ox 95 11/10/21 07:00 11/09/21 11/10/21 11/10/21 22:59 06:59 14:59 Intake Total 509.762 / 1199.314 154.686 / 1354.000 Output Total 1200 / 1200 750 / 1950 Balance -690.238 / -0.686 -595.314 / -596.000 Physical Exam Const: OTHER: comfortable using nc 02 good uop vs noted- levo remains @ 2 heent- nc/at, eomi lungs -upper zone b/l crackles, dull bases, diminished lower air movement heart reg abd distended, + bs, non tender ext b/l trace leg edema neuro- a,a, o x 1-2 Urinary Catheter Management: Anaya Latex: Cath Placed During This Visit: yes Reason for Continuing Indwelling Catheter: Accurate Measurement of Urinary Output in Critically Ill Patients Urinary Catheter Date of Insertion: 11/06/21 Urinary Catheter Time of Insertion: 15:10 Data : 11/10/21 03:19 11/10/21 03:19 Micro: Microbiology 11/08/21 05:17 Blood Culture - Preliminary Blood Staphylococcus epidermidis 11/05/21 Unknown Mycobacterial Smear - Preliminary Body Fluids - Peritoneal 11/05/21 Unknown Gram Stain - Final Peritoneal Fluid Anaerobic Culture - Preliminary Body Fluid Culture - Preliminary 11/08/21 05:17 Blood Culture - Preliminary Blood NEGATIVE TO DATE A&P Assessment and plan (1) Acute kidney injury: 56 yr old female depression, htn, GERD. recent dx of met ca w/ severe abd ascites. 1. COVID-19 + per ID -remdesivir, steroids -vanco by levels -wbc up to 16 2. oliguric LASHAUN- likely GIGI/ ATN/ Covid- 19 nephropathy -u/a 2+ 5-10 wbc -no hydronephrosis on imaging -cr starting to improve BUN still rising lowly rising- consider holding lasix- monitor uop and chemistries 3. last ABG was 11-08-21 4. hypoxemia and SOB-improved s/p paracentesis and now urinating 5. met ca- ct reviewed- . Severe peritoneal carcinomatosis in multiple locations within the peritoneal cavity and mesentery.? This could be of ovarian or gastrointestinal origin.? No definite ovarian mass is visualized. There is soft tissue caking along the sigmoid colon with likely invasion of the colon wall.? This is most likely peritoneal carcinomatosis.? Primary malignancy of the colon is not excluded.. Large amount of ascites which is of fluid density.? No evidence is suggests intraperitoneal hemorrhage. -BIOPSY C/W METASTATIC ADENOCA anemia- iron sat 7 %, ferritin 517 w/ covid-19- may be FERNANDO -pt needs onc eval- Q prognosis 6. hyponatremia- from lashaun and may have some SIADH component- na improving 7. elevated uric acid- repeat normal phos, high ca- unlikely TLS - may be dry- allopurinol -consider rasburicase 8. pth 68- repeat in 4 weeks -low vit d- replace vit d Status: Acute Plan seen and examined w/ rn international- telehealth visit- time spent 35 minutes Attestations Medical Necessity Statement*: lashaun, pressor dep, ascites, covid, hyperuricemia Time Spent in Patient Care: 16 - 35 minutes (>than 50% of time spent in counselling and/or direct pt care on unit). Coding Level of Care Code Acute Survey Engineer for [facility] Diagnoses Acute kidney injury N17.9
[2021-11-10] MEDS: budesonide 0.5 mg/2 mL Neb INHALATION ×2 (08:14→20:20)
--- NOTE | 2021-11-10 09:12 | PC.CHAP ---
Pastoral Care Encounter/Spiritual Assessment Type of Contact [] Declined middle school principal visit [] Patient/Family/Request visit [] Outpatient visit [] Follow-up visit [] Physician referral [] Code/Alert [x] Routine visit [] Staff referral [] Actively dying [x] Patient sleeping [] Family support [] [] Out of room [] Palliative care [] [] Receiving care in room [] Pre-surgical visit [] Trauma [] Long length of stay [x] ICU visit [] Other: Relational/Emotional Strength [] Patient feels connected with others/family/visitors/staff [] Distress [] Loneliness/isolation [] Abandonment Spirituality of Patient [] Person of Fanny [] Attends Druze of their Fanny [] Believes in Prayer [] Reads Bible or Methodist materials [] There are Spiritual issues to be addressed Donor Relations Manager Interventions [x] Prayer [] Active listening [] Non-anxious presence [] Spiritual/emotional support [] Crisis/trauma care [] Spiritual counseling [] Bereavement support [] Provided bereavement packet [] Provided Bible/devotional materials [] Provided toy/stuffed animal, coloring book to patient or family member [] Provided Communion [] Anointing/[place] [] Salvation [x] Completed spiritual assessment [] Other: Impact on Illness or Injury [] Angry [] Fearful [] Anxious [] Often cries [] Exhaustion [] Unable to work [] Unable to attend zoroastrian [] Unable to walk/stand [] Unable to read [] Unable to drive [] Unable to eat/drink [] Unable to sleep [] Unable to be with family [] Patient intubated [] Other: Summary Time spent with patient
[2021-11-10] MEDS: FUROsemide 10 mg/mL SDV 4mL 40 MG IVP (09:53)
[2021-11-10] MEDS: heparin 5,000 unit/mL INJ 1 mL 5000 UNIT SUBCUT ×2 (09:53→21:42)
[2021-11-10] MEDS: allopurinol 100 mg Tablet PO (09:53)
[2021-11-10] MEDS: zinc gluconate 50 mg Tablet PO (09:53)
[2021-11-10] MEDS: ascorbic acid 500 mg Tablet PO ×2 (09:53→18:23)
[2021-11-10] MEDS: docusate sodium 100 mg Capsule PO ×2 (09:53→18:23)
[2021-11-10] MEDS: oxyCODONE-APAP 5-325 mg Tablet 1 TAB PO ×2 (10:02→21:44)
--- NOTE | 2021-11-10 12:55 | PM.PN ---
Subjective Subjective: Interval history: Reports he is feeling all right. Denies difficulty breathing. No chest pain or pressure. Minimal cough. No nausea vomiting or diarrhea. Some abdominal distention. Vitals/I&O/Wt Last Vital Signs Temp 97.3 F L 11/10/21 05:01 Pulse 98 11/10/21 12:01 Resp 32 H 11/10/21 12:01 BP 117/63 11/10/21 12:01 Pulse Ox 94 11/10/21 12:01 11/09/21 11/10/21 11/10/21 22:59 06:59 14:59 Intake Total 509.762 / 1199.314 283.896 / 1483.210 34.29 / 34.29 Output Total 1200 / 1200 750 / 1950 Balance -690.238 / -0.686 -466.104 / -466.790 34.29 / 34.29 Physical Exam Const: COMMON NORMALS: no acute distress and patient oriented x3 GENERAL APPEARANCE: cooperative OTHER: Awake HENMT: COMMON NORMALS: oropharynx normal Neck/C-Spine: COMMON NORMALS: no JVD Resp: COMMON NORMALS: normal respiratory effort and clear to auscultation bilaterally AUSCULTATION: clear to auscultation bilaterally Cardio: COMMON NORMALS: no JVD, regular rhythm, S1 normal heart sound present, S2 normal heart sound present and No murmurs present (Cardio) RHYTHM: regular rhythm HEART SOUNDS: S1 normal heart sound present and S2 normal heart sound present GI: COMMON NORMALS: Normal to inspection, nondistended, normoactive bowel sounds present, Soft to palpation and non-tender INSPECTION: Yes abdominal distension PALPATION: Yes Soft to palpation and Yes Tenderness to palpation present (GI) (mild) Extremity: COMMON NORMALS: no joint enlargement and no pedal edema Neuro: COMMON NORMALS: patient oriented x3 and moves all extremities Skin: COMMON NORMALS: no rashes or lesions noted GENERAL SKIN EXAM: no rashes or lesions noted Urinary Catheter Management: Anaya Latex: Cath Placed During This Visit: yes Reason for Continuing Indwelling Catheter: Accurate Measurement of Urinary Output in Critically Ill Patients Urinary Catheter Date of Insertion: 11/06/21 Urinary Catheter Time of Insertion: 15:10 Data : 11/10/21 03:19 11/10/21 03:19 Micro: Microbiology 11/10/21 10:52 Blood Culture - Preliminary Blood SPECIMEN COLLECTED 11/10/21 09:50 Blood Culture - Preliminary Blood SPECIMEN COLLECTED 11/08/21 05:17 Blood Culture - Preliminary Blood Staphylococcus epidermidis 11/05/21 Unknown Mycobacterial Smear - Preliminary Body Fluids - Peritoneal 11/05/21 Unknown Gram Stain - Final Peritoneal Fluid Anaerobic Culture - Preliminary Body Fluid Culture - Preliminary A&P Assessment and plan (1) Sepsis: Septic shock gradually improving. Still hypotensive requiring 2 mcg/min infusion of Levophed this morning. Continue to wean off as tolerating. Peritoneal fluid so far without any culture results. Blood culture 11/05 with corynebacterium species. Blood culture 11/08 with Staphylococcus epidermidis. Repeat blood culture requested due to unclear results although more likely contamination. Pneumonia, possible peritonitis based on cell count studies, although could be affected by malignancy. Follow-up culture. So far no results yet. No organisms from 11/05. Septic shock. Weaning down on pressor requirement. Still requiring low rate pressor despite temporarily coming off. Maintain blood pressure. Continue empiric antibiotics at this time. Leukocytosis persist, but so far without fever since yesterday. Possible peritonitis with neutrophilic predominance, 660 WBCs, 97% PMNs. Follow-up culture results. Status: Acute Qualifiers: Severe sepsis shock status: with septic shock (2) Spontaneous bacterial peritonitis: Continue vancomycin, Primaxin at this time. Follow-up peritoneal fluid cultures. So far no growth. Status post paracentesis 11/08. Fluid sample from biopsy on 11/05 without bacteria on Gram stain, follow-up. Status: Acute (3) Abdominal carcinomatosis: Unknown primary, adenocarcinoma. 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 Resume follow-up with oncology after discharge. Status: Acute (4) COVID: Continue Decadron, remdesivir. Oxygen support. Oxygen requirement gradually improving. Down to 3 L. Breathing treatments. Continue heparin VTE prophylaxis. Discontinue baricitinib given concern for peritonitis. Follow-up culture. Monitor condition. So far has shown gradual improvement. Status: Acute (5) Acute kidney injury: Showing mild improvement in renal function. Producing urine. So far has not required hemodialysis. Continue close monitoring. Continue to observation, renal function not improved, but has been producing urine. Maintain blood pressures, has been coming off of pressor. Hold lisinopril. Status: Acute Plan Condition and plans discussed with family. Attestations Medical Necessity Statement*: Continue admission for assessment management of septic shock, hypoxia with severe COVID-19, LASHAUN Critical Care Time: The high probability of a clinically significant, sudden or life threatening deterioration of the patient's hemodynamic, renal, respiratory system(s) required my full and direct attention, intervention and personal management. The critical care time is as shown. This time is in addition to time spent performing any reported procedures but includes the following: x Data and vital sign review and interpretation x Patient assessment, examination and intervention x Documentation x Medication orders and management Critical Care Time (min): 45 Coding Level of Care Code Acute Carbon Paper Coating Machine Setter for [facility] Fwd Exam Comprehensive Diagnoses Sepsis A41.9 Severe sepsis shock status: with septic shock Spontaneous bacterial peritonitis K65.2 Abdominal carcinomatosis C76.2 COVID U07.1 Acute kidney injury N17.9
[2021-11-10] MEDS: HYDROmorphone 1 mg/mL INJ 1 mL 0.5 MG IVP (13:41)
--- NOTE | 2021-11-10 16:10 | PC.NURSE ---
called and voiced concerns regarding incoming inclement weather affecting pt's care if paracentesis needed. Dr Quintana phoned and notified that pt c/o slight tightening of abdomen. Dr requested this nurse call Radiology to ensure radiologist would be available tomorrow. Radiology dept stated that adequate staff scheduled.
[2021-11-10] MEDS: amitriptyline 25 mg Tablet PO (21:44)
[2021-11-10] MEDS: pantoprazole 40 mg SDV IVP (21:45)
[2021-11-10] MEDS: vancomycin 1,250 MG/250 ML PIGGYBACK 200 MG IV (22:56)
[2021-11-11] VITALS (44 sets, daily range): BP systolic 93–121; BP diastolic 56–78; PULSE 93–108; RESP 16–44; TEMP 36.7–37.1; O2SAT 91–100
[2021-11-11] MEDS: ipratropium-albuterol 3 mL Neb INHALATION ×5 (00:46→21:20)
[2021-11-11] MEDS: oxyCODONE-APAP 5-325 mg Tablet 1 TAB PO ×2 (04:22→18:07)
[2021-11-11 05:20] LABS: Hematocrit 31.3 % (37.0-47.0); Mean Corpuscular HGB Conc 31.9 g/dL (30.0-36.0); Mean Corpuscular Hemoglobin 24.2 pg (28.0-34.0); Mean Corpuscular Volume 75.8 fl (81-99); Mean Platelet Volume 11.3 fL (7.4-10.4); Platelet Count 380 10^3/cmm (130-400); Red Blood Count 4.13 10^6/uL (4.1-5.3); Red Cell Distribution Width 16.4 % (12.1-15.1); White Blood Count 18.1 10^3/uL (4.0-10.0)
[2021-11-11] MEDS: dexamethasone 10 mg/mL INJ 6 MG IVP (05:30)
[2021-11-11 05:38] LABS: D Dimer 4.98 ug/mIFEU (0-0.59)
[2021-11-11 05:39] LABS: C Reactive Protein 117.4 mg/L (0.0-4.9)
[2021-11-11 05:40] LABS: Alanine Aminotransferase 24 U/L (0-33); Albumin Level 2.9 g/dL (3.5-5.2); Alkaline Phosphatase 129 IU/L (35-105); Anion Gap 17.7 (5-19); Aspartate Amino Transferase 95 U/L (0-32); Calcium 8.3 mg/dL (8.5-10.5); Carbon Dioxide 19 mmol/L (22-29); Chloride 98 mmol/L (98-107); Globulin 3.2 g/dL (1.3-4.6); Glomerular Filtration Rate 24.3 mL/min (90-130); Glucose 154 mg/dL (65-115); Magnesium 2.3 mg/dL (1.7-2.3); Osmolality Calculated 305 mOsm/kg (285-295); Phosphorus 4.3 mg/dL (2.5-4.5); Potassium 3.7 mmol/L (3.5-5.1); Sodium 131 mmol/L (136-145); Total Bilirubin 0.9 mg/dL (0.15-1.2); Total Protein 6.1 g/dL (6.6-8.7); Uric Acid 12.6 mg/dL (2.4-5.7)
[2021-11-11 05:51] LABS: Blood Urea Nitrogen 97 mg/dL (6-20)
--- NOTE | 2021-11-11 05:53 | PC.NURSE ---
Addendum entered by Zoraida Polk RN 11/11/21 05:56: Lines and tubes patent. GTT's titrated per protocol. Levophed remained off during shift. Original Note: Shift Note Frequent safety and comfort rounds continue. Orders and/or nursing care completed as indicated. Patient monitored for response to intervention and treatment(s). Education provided includes pain management, medications with side effects, S/S to report, fall precautions. Patient verbalized understanding of education. Pt with c/o pain within abdomen and left lateral lower back, abdomen distended and firm, positive bowel sounds, passing gas. Will continue to monitor.
[2021-11-11 06:25] LABS: Slide Review Slide Review Perform
[2021-11-11 06:27] LABS: Absolute Neutrophil 15.4 10^3/cmm (1.4-6.5); Absolute Segmented Neutrophil 13.9 10/cmm (1.6-7.1); Band Neutrophils Absolute 1.4 10^3/cmm (0.0-1.2); Eosinophils 0 %; Lymphocytes 9 %; Lymphocytes Absolute 1.8 10^3/cmm (1.2-3.4); Monocytes Absolute 0.4 10^3/cmm (0.1-0.6); Platelet Estimate Normal (Normal); Segmented Neutrophils 77 %; Total Cells Counted 100 (0-100)
[2021-11-11 06:28] LABS: Hypochromasia 1+; Poikilocytosis 1+
[2021-11-11 06:29] LABS: Ovalocytes Trace; Target Cells 1+
--- NOTE | 2021-11-11 07:44 | P.PN_ITS ---
Subjective Subjective: Interval history: feels better. awake, alert. no n/v/f/c/rodriguez/d/sob Medications: Reviewed: Yes Medication Review Details: Current Medications Acetaminophen (Acetaminophen 325 Mg Tablet) 650 mg PO Q6H PRN PRN Reason: Mild/Mod Pain Or Temp >/= 101 Albuterol/Ipratropium (Ipratropium-Albuterol 3 Ml Neb) 3 ml INHALATION Q4H.RESPIRATORY [facility] Last Admin: 11/11/21 04:11 Dose: 3 ml Documented by: Allopurinol (Allopurinol 100 Mg Tablet) 100 mg PO DAILY [facility] Last Admin: 11/10/21 09:53 Dose: 100 mg Documented by: Amitriptyline HCl (Amitriptyline 25 Mg Tablet) 25 mg PO BEDTIME [facility] Last Admin: 11/10/21 21:44 Dose: 25 mg Documented by: Ascorbic Acid (Ascorbic Acid 500 Mg Tablet) 500 mg PO BID [facility] Last Admin: 11/10/21 18:23 Dose: 500 mg Documented by: Budesonide (Budesonide 0.5 Mg/2 Ml Neb) 0.5 mg INHALATION BID.RESPIRATORY [facility] Last Admin: 11/10/21 20:20 Dose: Not Given Documented by: Budesonide (Budesonide 0.5 Mg/2 Ml Neb) 0.5 mg INHALATION BID.RESPIRATORY [facility] Last Admin: 11/10/21 20:20 Dose: 0.5 mg Documented by: Dexamethasone (Dexamethasone 10 Mg/Ml Inj) 6 mg IVP Q24H [facility] Last Admin: 11/11/21 05:30 Dose: 6 mg Documented by: Docusate Sodium (Docusate Sodium 100 Mg Capsule) 100 mg PO BID [facility] Last Admin: 11/10/21 18:23 Dose: 100 mg Documented by: Ergocalciferol (Ergocalciferol (Vitamin D2) 50,000 Unit Capsule) 50,000 unit PO Q7D [facility] Last Admin: 11/09/21 10:51 Dose: 50,000 unit Documented by: Furosemide (Furosemide 10 Mg/Ml Sdv 4ml) 40 mg IVP DAILY [facility] Last Admin: 11/10/21 09:53 Dose: 40 mg Documented by: Heparin Sodium (Porcine) (Heparin 5,000 Unit/Ml Inj 1 Ml) 5,000 unit SUBCUT Q12H [facility] Last Admin: 11/10/21 21:42 Dose: 5,000 unit Documented by: Hydromorphone HCl (Hydromorphone 1 Mg/Ml Inj 1 Ml) 0.5 mg IVP Q4H PRN PRN Reason: PAIN Last Admin: 11/10/21 13:41 Dose: 0.5 mg Documented by: Vancomycin/PEG/NADA/Lysine/Water (Vancocin) 1,250 mg in 250 mls @ 250 mls/hr IV Q24H [facility] Last Infusion: 11/11/21 00:39 Dose: Infused Documented by: dexmedeTOMIDine 0.9 % NaCL (Precedex) 400 mcg in 100 mls @ 0 mls/hr IV .Q0M [facility]; Protocol Last Titration: 11/09/21 16:54 Dose: Infused Documented by: Imipenem/Cilastatin Sodium 250 (mg/ Sodium Chloride) 100 mls @ 200 mls/hr IV Q6H [facility]; Protocol Last Infusion: 11/11/21 04:55 Dose: Infused Documented by: Norepinephrine Bitartrate 4 mg (/ Dextrose) 254 mls @ 0 mls/hr IV .Q0M [facility]; Protocol Last Titration: 11/10/21 10:00 Dose: 0 mcg/min, 0 mls/hr Documented by: Naloxone HCl (Naloxone 0.4 Mg/Ml Sdv) 0.1 mg IVP Q2M PRN PRN Reason: OPIATERV Ondansetron HCl (Ondansetron 2 Mg/Ml Sdv 2 Ml) 4 mg IVP Q8H PRN PRN Reason: vomiting, or N/V if npo Last Admin: 11/09/21 17:16 Dose: 4 mg Documented by: Oxycodone/Acetaminophen (Oxycodone-Apap 5-325 Mg Tablet) 1 tab PO Q6H PRN PRN Reason: MODERATE PAIN Last Admin: 11/11/21 04:22 Dose: 1 tab Documented by: Pantoprazole Sodium (Pantoprazole 40 Mg Sdv) 40 mg IVP Q24H [facility] Last Admin: 11/10/21 21:45 Dose: 40 mg Documented by: Zinc Gluconate (Zinc Gluconate 50 Mg Tablet) 50 mg PO DAILY [facility] Last Admin: 11/10/21 09:53 Dose: 50 mg Documented by: Vitals/I&O/Wt Last Vital Signs Temp 98.6 F 11/11/21 04:00 Pulse 105 H 11/11/21 06:00 Resp 34 H 11/11/21 04:30 BP 109/67 11/11/21 04:30 Pulse Ox 99 11/11/21 04:30 11/10/21 11/11/21 11/11/21 22:59 06:59 14:59 Intake Total 525 / 659.29 700 / 1359.29 Output Total 3400 / 3400 950 / 4350 Balance -2875 / -2740.71 -250 / -2990.71 Physical Exam Const: OTHER: comfortable , NARD good uop vs noted-stable, off of pressors heent- nc/at, eomi lungs -improved air movement b/l heart reg abd distended, + bs, non tender ext b/l trace leg edema neuro- a,a, o x 2+ Urinary Catheter Management: Anaya Latex: Cath Placed During This Visit: yes Reason for Continuing Indwelling Catheter: Accurate Measurement of Urinary Output in Critically Ill Patients Urinary Catheter Date of Insertion: 11/06/21 Urinary Catheter Time of Insertion: 15:10 Data : 11/11/21 04:43 11/11/21 04:43 Micro: Microbiology 11/05/21 19:31 Blood Culture - Final Blood NO GROWTH AFTER 5 DAYS 11/05/21 19:28 Blood Culture - Final Blood Clostridium perfringens 11/05/21 Unknown Gram Stain - Final Peritoneal Fluid Anaerobic Culture - Preliminary Body Fluid Culture - Preliminary 11/10/21 10:52 Blood Culture - Preliminary Blood SPECIMEN COLLECTED 11/10/21 09:50 Blood Culture - Preliminary Blood SPECIMEN COLLECTED 11/08/21 05:17 Blood Culture - Preliminary Blood Staphylococcus epidermidis A&P Assessment and plan (1) Acute kidney injury: 56 yr old female depression, htn, GERD. recent dx of met ca w/ severe abd ascites. 1. COVID-19 + per ID -remdesivir, steroids -vanco by levels -wbc up to 18 2. oliguric LASHAUN- likely GIGI/ ATN/ Covid- 19 nephropathy -u/a 2+ 5-10 wbc -no hydronephrosis on imaging -cr and uop are improving - monitor uop and chemistries 3. hypoxemia and SOB-improved s/p paracentesis and now urinating 4. met ca- ct reviewed- . Severe peritoneal carcinomatosis in multiple locations within the peritoneal cavity and mesentery.? This could be of ovarian or gastrointestinal origin.? No definite ovarian mass is visualized. There is soft tissue caking along the sigmoid colon with likely invasion of the colon wall.? This is most likely peritoneal carcinomatosis.? Primary malignancy of the colon is not excluded.. Large amount of ascites which is of fluid density.? No evidence is suggests intraperitoneal hemorrhage. -BIOPSY C/W METASTATIC ADENOCA 5. anemia- iron sat 7 %, ferritin 517 w/ covid-19- may be FERNANDO -pt needs onc eval- Q prognosis 6. hyponatremia- from lashaun and may have some SIADH component- na dropped- d/c lasix 7. elevated uric acid- repeat normal phos, high ca- unlikely TLS - may be dry- allopurinol -consider rasburicase 8. pth 68- repeat in 4 weeks -low vit d- replace vit d Status: Acute Plan seen and examined w/ [facility]- telehealth visit- time spent 30 minutes Attestations Medical Necessity Statement*: per medicine Time Spent in Patient Care: 16 - 35 minutes (>than 50% of time spent in counselling and/or direct pt care on unit) . Coding Level of Care Code Acute Microbiology Director for [facility] Diagnoses Acute kidney injury N17.9
[2021-11-11] MEDS: budesonide 0.5 mg/2 mL Neb INHALATION ×2 (07:45→21:20)
[2021-11-11] MEDS: zinc gluconate 50 mg Tablet PO (09:32)
[2021-11-11] MEDS: HYDROmorphone 1 mg/mL INJ 1 mL 0.5 MG IVP ×3 (09:32→20:11)
[2021-11-11] MEDS: allopurinol 100 mg Tablet PO (09:32)
[2021-11-11] MEDS: heparin 5,000 unit/mL INJ 1 mL 5000 UNIT SUBCUT ×2 (09:32→21:12)
[2021-11-11] MEDS: docusate sodium 100 mg Capsule PO ×2 (09:32→18:08)
[2021-11-11] MEDS: ascorbic acid 500 mg Tablet PO ×2 (09:32→18:08)
--- NOTE | 2021-11-11 09:43 | PC.CHAP ---
Pastoral Care Encounter/Spiritual Assessment Type of Contact [] Declined field geologist visit [] Patient/Family/Request visit [] Outpatient visit [] Follow-up visit [] Physician referral [] Code/Alert [x] Routine visit [] Staff referral [] Actively dying [] Patient sleeping [] Family support [] [] Out of room [] Palliative care [] [] Receiving care in room [] Pre-surgical visit [] Trauma [] Long length of stay [x] ICU visit [] Other: Relational/Emotional Strength [] Patient feels connected with others/family/visitors/staff [] Distress [] Loneliness/isolation [] Abandonment Spirituality of Patient [] Person of Fanny [] Attends Hinduism of their Fanny [] Believes in Prayer [] Reads Bible or Episcopalian materials [] There are Spiritual issues to be addressed Commercial Service Technician Interventions [x] Prayer [] Active listening [] Non-anxious presence [] Spiritual/emotional support [] Crisis/trauma care [] Spiritual counseling [] Bereavement support [] Provided bereavement packet [] Provided Bible/devotional materials [] Provided toy/stuffed animal, coloring book to patient or family member [] Provided Communion [] Anointing/[place] [] Salvation [x] Completed spiritual assessment [] Other: Impact on Illness or Injury [] Angry [] Fearful [] Anxious [] Often cries [] Exhaustion [] Unable to work [] Unable to attend buddhist [] Unable to walk/stand [] Unable to read [] Unable to drive [] Unable to eat/drink [] Unable to sleep [] Unable to be with family [] Patient intubated [] Other: Summary Time spent with patient
--- NOTE | 2021-11-11 14:56 | PM.PN ---
Subjective Subjective: Interval history: She is overall doing better. Breathing is not bothering her, but is having some cough. Knows to ask for cough medicine. Denies chest pain or pressure. Abdomen feels distended. Vitals/I&O/Wt Last Vital Signs Temp 98.6 F 11/11/21 04:00 Pulse 98 11/11/21 12:00 Resp 30 H 11/11/21 13:33 BP 96/65 11/11/21 12:00 Pulse Ox 96 11/11/21 13:33 11/10/21 11/11/21 11/11/21 22:59 06:59 14:59 Intake Total 525 / 659.29 700 / 1359.29 220 / 220 Output Total 3400 / 3400 950 / 4350 750 / 750 Balance -2875 / -2740.71 -250 / -2990.71 -530 / -530 Physical Exam Const: COMMON NORMALS: no acute distress and patient oriented x3 GENERAL APPEARANCE: cooperative OTHER: Awake HENMT: COMMON NORMALS: oropharynx normal Neck/C-Spine: COMMON NORMALS: no JVD Resp: COMMON NORMALS: normal respiratory effort and clear to auscultation bilaterally AUSCULTATION: clear to auscultation bilaterally Cardio: COMMON NORMALS: no JVD, regular rhythm, S1 normal heart sound present, S2 normal heart sound present and No murmurs present (Cardio) RHYTHM: regular rhythm HEART SOUNDS: S1 normal heart sound present and S2 normal heart sound present GI: COMMON NORMALS: Soft to palpation INSPECTION: Yes abdominal distension PALPATION: Yes Soft to palpation and Yes Tenderness to palpation present (GI) (mild) Extremity: COMMON NORMALS: no joint enlargement and no pedal edema Neuro: COMMON NORMALS: patient oriented x3 and moves all extremities Skin: COMMON NORMALS: no rashes or lesions noted GENERAL SKIN EXAM: no rashes or lesions noted Urinary Catheter Management: Anaya Latex: Cath Placed During This Visit: yes Reason for Continuing Indwelling Catheter: Accurate Measurement of Urinary Output in Critically Ill Patients Urinary Catheter Date of Insertion: 11/06/21 Urinary Catheter Time of Insertion: 15:10 Data : 11/11/21 04:43 11/11/21 04:43 Micro: Microbiology 11/10/21 10:52 Blood Culture - Preliminary Blood NEGATIVE TO DATE 11/05/21 Unknown Gram Stain - Final Peritoneal Fluid Anaerobic Culture - Preliminary Body Fluid Culture - Final 11/10/21 09:50 Blood Culture - Preliminary Blood NEGATIVE TO DATE 11/05/21 19:31 Blood Culture - Final Blood NO GROWTH AFTER 5 DAYS 11/05/21 19:28 Blood Culture - Final Blood Clostridium perfringens A&P Assessment and plan (1) Sepsis: Resolved septic shock, she weaned off pressor. Still sepsis with leukocytosis, sinus tachycardia. Afebrile. Discussed with her and her regarding Clostridium perfringens growing on culture from 11/05. Possible translocation secondary to colonic metastatic invasion. No anaerobe growth so far on repeat cultures. Noted 11/08 culture growing staph epidermidis, this would suspect more to be contamination. / cultures so far without growth. Follow-up. Continue Primaxin. We will stop vancomycin. Likely peritonitis based on cell count studies, although could be affected by malignancy. Likely bacterial translocation from colonic invasion. Follow-up culture. So far no results yet. No organisms from 11/05. Septic shock. Weaning down on pressor requirement. Still requiring low rate pressor despite temporarily coming off. Maintain blood pressure. Continue empiric antibiotics at this time. Leukocytosis persist, but so far without fever since yesterday. Possible peritonitis with neutrophilic predominance, 660 WBCs, 97% PMNs. Follow-up culture results. Continue care on medical floor. Status: Acute Qualifiers: Severe sepsis shock status: with septic shock (2) Spontaneous bacterial peritonitis: Continue Primaxin at this time. Follow-up peritoneal fluid cultures. So far no growth. Status post paracentesis 11/08. Fluid sample from biopsy on 11/05 without bacteria on Gram stain, follow-up. Status: Acute (3) Abdominal carcinomatosis: Again abdominal distention. Will request repeat paracentesis. Unknown primary, adenocarcinoma. 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 Resume follow-up with oncology after discharge. Status: Acute (4) COVID: Completed course of remdesivir. Dexamethasone. Wean down oxygen support as tolerating. Currently down to 2 L. Add antitussives. Continue heparin VTE prophylaxis. Discontinued baricitinib given concern for peritonitis and improving oxygenation Status: Acute (5) Acute kidney injury: Showing mild improvement in renal function. Producing urine. So far has not required hemodialysis. Continue close monitoring. Continue to observation, renal function not improved, but has been producing urine. Maintain blood pressures, has been coming off of pressor. Hold lisinopril. Status: Acute Plan Condition and plans discussed with her and family, both in agreement. Attestations Medical Necessity Statement*: Continue admission for assessment management of sepsis, peritonitis, anaerobic bacteremia with peritoneal carcinomatosis, severe COVID-19. Coding Level of Care Code Acute [employer] [facility] for [facility] F[facility] Diagnoses Sepsis A41.9 Severe sepsis shock status: with septic shock Spontaneous bacterial peritonitis K65.2 Abdominal carcinomatosis C76.2 COVID U07.1 Acute kidney injury N17.9
[2021-11-11] MEDS: amitriptyline 25 mg Tablet PO (20:12)
[2021-11-11] MEDS: pantoprazole 40 mg SDV IVP (21:12)
[2021-11-12] VITALS (35 sets, daily range): BP systolic 95–118; BP diastolic 64–79; PULSE 96–106; RESP 14–36; TEMP 36.8–37.1; O2SAT 89–100
[2021-11-12] MEDS: ipratropium-albuterol 3 mL Neb INHALATION ×3 (00:22→09:26)
[2021-11-12] MEDS: oxyCODONE-APAP 5-325 mg Tablet 1 TAB PO ×3 (00:24→18:34)
[2021-11-12] MEDS: HYDROmorphone 1 mg/mL INJ 1 mL 0.5 MG IVP ×3 (03:53→22:30)
[2021-11-12 05:36] LABS: Vancomycin Random 11.2 ug/mL (20.0-40.0)
[2021-11-12 08:00] LABS: Alanine Aminotransferase 20 U/L (0-33); Alkaline Phosphatase 187 IU/L (35-105); Anion Gap 14.6 (5-19); Aspartate Amino Transferase 72 U/L (0-32); Blood Urea Nitrogen 76 mg/dL (6-20); Calcium 8.3 mg/dL (8.5-10.5); Carbon Dioxide 22 mmol/L (22-29); Chloride 103 mmol/L (98-107); Glomerular Filtration Rate 51.2 mL/min (90-130); Glucose 106 mg/dL (65-115); Magnesium 2.1 mg/dL (1.7-2.3); Osmolality Calculated 305 mOsm/kg (285-295); Potassium 3.6 mmol/L (3.5-5.1); Sodium 136 mmol/L (136-145); Total Bilirubin 1.1 mg/dL (0.15-1.2); Uric Acid 9.1 mg/dL (2.4-5.7)
--- NOTE | 2021-11-12 09:00 | US_ITS ---
WS: [id number] ULTRASOUND-GUIDED THERAPEUTIC AND DIAGNOSTIC PARACENTESIS Procedure, risks, and complications have been explained to the patient. Consent is obtained. Utilizing aseptic technique and 1% buffered lidocaine, a small dermatome was made through which a 5 F rench Yueh catheter was inserted. Approximately 1100 ml of dark brownish-red peritoneal fluid was obt ained without difficulty. No complications encountered. Fluid is loculated in collections and periton eal implants are noted during the ultrasound evaluation of the fluid. Peritoneal fluid collection as requested. US/US paracentesis abd w [id number] IMPRESSION: Uncomplicated paracentesis yielding 1100 ml of peritoneal fluid. Specimen collected for analysis as requested.
[2021-11-12 09:08] LABS: Mononuclear #, Pertinoneal Fl 0.016 10^3/uL; Polynuclear # Cells, Perit 0.159 10^3/uL
[2021-11-12 09:21] LABS: Appearance, Peritoneal Fluid Cloudy (Clear); Color, Peritoneal Fluid Amber (Pale Yellow)
[2021-11-12 09:23] LABS: WBC Peritoneal Fluid 175 /uL
[2021-11-12 09:24] LABS: Pathology Referral Yes; RBC Pertioneal Fluid 34 10^3/uL
[2021-11-12] MEDS: budesonide 0.5 mg/2 mL Neb INHALATION ×2 (09:26→20:59)
[2021-11-12] MEDS: heparin 5,000 unit/mL INJ 1 mL 5000 UNIT SUBCUT ×2 (09:59→23:06)
[2021-11-12] MEDS: ascorbic acid 500 mg Tablet PO ×2 (09:59→18:36)
[2021-11-12] MEDS: zinc gluconate 50 mg Tablet PO (09:59)
[2021-11-12] MEDS: allopurinol 100 mg Tablet PO (09:59)
[2021-11-12] MEDS: docusate sodium 100 mg Capsule PO ×2 (10:00→18:36)
[2021-11-12 11:42] LABS: Vit D 1,25 (Oh)2, Total 88 pg/mL (18-72); Vit D2 1,25 (Oh)2 <8 pg/mL; Vit D3 1,25 (Oh)2 88 pg/mL
--- NOTE | 2021-11-12 12:52 | PM.PN ---
Subjective Subjective: Interval history: This morning only thing is been bothering her is her back which she attributes to staying in bed a long time. Denies other complaints. Breathing comfortably. No trouble during paracentesis. Vitals/I&O/Wt Last Vital Signs Temp 98.3 F 11/12/21 04:00 Pulse 100 11/12/21 09:52 Resp 22 H 11/12/21 12:43 BP 102/76 11/12/21 04:30 Pulse Ox 96 11/12/21 12:43 11/11/21 11/12/21 11/12/21 22:59 06:59 14:59 Intake Total 680 / 900 600 / 1500 100 / 100 Output Total 600 / 1350 1050 / 2400 Balance 80 / -450 -450 / -900 100 / 100 Physical Exam Const: COMMON NORMALS: no acute distress and patient oriented x3 GENERAL APPEARANCE: cooperative OTHER: Awake HENMT: COMMON NORMALS: oropharynx normal Neck/C-Spine: COMMON NORMALS: no JVD Resp: COMMON NORMALS: normal respiratory effort and clear to auscultation bilaterally AUSCULTATION: clear to auscultation bilaterally Cardio: COMMON NORMALS: no JVD, regular rhythm, S1 normal heart sound present, S2 normal heart sound present and No murmurs present (Cardio) RHYTHM: regular rhythm HEART SOUNDS: S1 normal heart sound present and S2 normal heart sound present GI: COMMON NORMALS: Soft to palpation INSPECTION: Yes abdominal distension PALPATION: Yes Soft to palpation and Yes Tenderness to palpation present (GI) (mild) Extremity: COMMON NORMALS: no joint enlargement and no pedal edema Neuro: COMMON NORMALS: patient oriented x3 and moves all extremities Skin: COMMON NORMALS: no rashes or lesions noted GENERAL SKIN EXAM: no rashes or lesions noted Urinary Catheter Management: Anaya Latex: Cath Placed During This Visit: yes Reason for Continuing Indwelling Catheter: Accurate Measurement of Urinary Output in Critically Ill Patients Urinary Catheter Date of Insertion: 11/06/21 Urinary Catheter Time of Insertion: 15:10 Data : 11/11/21 04:43 11/12/21 07:00 Micro: Microbiology 11/05/21 Unknown Gram Stain - Final Peritoneal Fluid Anaerobic Culture - Preliminary Body Fluid Culture - Final 11/10/21 10:52 Blood Culture - Preliminary Blood NEGATIVE TO DATE 11/10/21 09:50 Blood Culture - Preliminary Blood NEGATIVE TO DATE A&P Assessment and plan (1) Spontaneous bacterial peritonitis: More abdominal distention, additional paracentesis today, 1100 mL reddish fluid. Analysis and cultures requested. Continue Primaxin at this time. Mobilize with PT. Status post paracentesis 11/08, culturewithout bacteria on Gram stain, no growth so far, follow-up. Status: Acute (2) Sepsis: Resolved septic shock, she weaned off pressor. Still sepsis with leukocytosis, sinus tachycardia. Afebrile. Discussed with her and her regarding Clostridium perfringens growing on culture from 11/05. Possible translocation secondary to colonic metastatic invasion. No anaerobe growth so far on repeat cultures. Noted 11/08 culture growing staph epidermidis, this would suspect more to be contamination. 11/10 cultures so far without growth. Follow-up. Continue Primaxin. Stopped vancomycin. Likely peritonitis based on cell count studies, although could be affected by malignancy. Likely bacterial translocation from colonic invasion. Follow-up culture. So far no results yet. No organisms from initial paracentesis. Paracentesis repeated 11/12. Septic shock resolved Weaning down on pressor requirement. Still requiring low rate pressor despite temporarily coming off. Maintain blood pressure. Continue empiric antibiotics at this time. Leukocytosis persist, but so far without fever since yesterday. Possible peritonitis with neutrophilic predominance, 660 WBCs, 97% PMNs. Follow-up culture results. Continue care on medical floor. Status: Acute Qualifiers: Severe sepsis shock status: with septic shock (3) Abdominal carcinomatosis: Plans for initiation of chemotherapy next week if possible. Will need port eventually. Discussed with surgery, currently due to recent positive blood cultures will follow up with her in clinic, initially PICC line to allow initiation of chemo until repeat blood cultures resulting negative Again abdominal distention. Paracentesis repeated 11/12, additional 1100 drained. Unknown primary, adenocarcinoma. 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 Status: Acute (4) COVID: Completed course of remdesivir. Dexamethasone. Wean down oxygen support as tolerating. Currently down to 2 L. Add antitussives. Continue heparin VTE prophylaxis. Discontinued baricitinib given concern for peritonitis and improving oxygenation Status: Acute (5) Acute kidney injury: Improving renal function. Producing urine. So far has not required hemodialysis. Continue close monitoring. Continue to observation, renal function not improved, but has been producing urine. Maintain blood pressures, has been coming off of pressor. Hold lisinopril. Status: Acute Plan Condition and plans discussed with her and family, both in agreement. Attestations Medical Necessity Statement*: Continue admission for assessment of management of peritonitis, anaerobe bacteremia, in setting of peritoneal carcinomatosis with recurrent ascites, severe COVID-19 Coding Level of Care Code Acute [facility] Diagnoses Sepsis A41.9 Severe sepsis shock status: with septic shock Spontaneous bacterial peritonitis K65.2 Abdominal carcinomatosis C76.2 COVID U07.1 Acute kidney injury N17.9
--- NOTE | 2021-11-12 14:47 | PC.NURSE ---
Report called to [place] on [place], patient taken to room 268-1, belongings with patient.
--- NOTE | 2021-11-12 15:00 | P.PN_ITS ---
Subjective Subjective: Interval history: -Patient seen at bedside today -Clinically improving; no acute overnight events -Underwent paracentesis again and 1100 cc dark brownish peritoneal fluid drained and again ultrasound revealed loculated collections of fluid and peritoneal implants on ultrasound examination -Patient is currently saturating well on 2 L nasal cannula -Off pressors -Significant urine output and improving renal functions -Labs and imaging reviewed Medications: Reviewed: Yes Medication Review Details: Current Medications Acetaminophen (Acetaminophen 325 Mg Tablet) 650 mg PO Q6H PRN PRN Reason: Mild/Mod Pain Or Temp >/= 101 Albuterol/Ipratropium (Ipratropium-Albuterol 3 Ml Neb) 3 ml INHALATION Q4H.RESPIRATORY WALE Last Admin: 11/11/21 04:11 Dose: 3 ml Documented by: Allopurinol (Allopurinol 100 Mg Tablet) 100 mg PO DAILY [facility] Last Admin: 11/10/21 09:53 Dose: 100 mg Documented by: Amitriptyline HCl (Amitriptyline 25 Mg Tablet) 25 mg PO BEDTIME [facility]ALE Last Admin: 11/10/21 21:44 Dose: 25 mg Documented by: Ascorbic Acid (Ascorbic Acid 500 Mg Tablet) 500 mg PO BID [facility] Last Admin: 11/10/21 18:23 Dose: 500 mg Documented by: Budesonide (Budesonide 0.5 Mg/2 Ml Neb) 0.5 mg INHALATION BID.RESPIRATORY WALE Last Admin: 11/10/21 20:20 Dose: Not Given Documented by: Budesonide (Budesonide 0.5 Mg/2 Ml Neb) 0.5 mg INHALATION BID.RESPIRATORY WALE Last Admin: 11/10/21 20:20 Dose: 0.5 mg Documented by: Dexamethasone (Dexamethasone 10 Mg/Ml Inj) 6 mg IVP Q24H [facility] Last Admin: 11/11/21 05:30 Dose: 6 mg Documented by: Docusate Sodium (Docusate Sodium 100 Mg Capsule) 100 mg PO BID [facility] Last Admin: 11/10/21 18:23 Dose: 100 mg Documented by: Ergocalciferol (Ergocalciferol (Vitamin D2) 50,000 Unit Capsule) 50,000 unit PO Q7D [facility] Last Admin: 11/09/21 10:51 Dose: 50,000 unit Documented by: Furosemide (Furosemide 10 Mg/Ml Sdv 4ml) 40 mg IVP DAILY [facility] Last Admin: 11/10/21 09:53 Dose: 40 mg Documented by: Heparin Sodium (Porcine) (Heparin 5,000 Unit/Ml Inj 1 Ml) 5,000 unit SUBCUT Q12H [facility] Last Admin: 11/10/21 21:42 Dose: 5,000 unit Documented by: Hydromorphone HCl (Hydromorphone 1 Mg/Ml Inj 1 Ml) 0.5 mg IVP Q4H PRN PRN Reason: PAIN Last Admin: 11/10/21 13:41 Dose: 0.5 mg Documented by: Vancomycin/PEG/NADA/Lysine/Water (Vancocin) 1,250 mg in 250 mls @ 250 mls/hr IV Q24H [facility] Last Infusion: 11/11/21 00:39 Dose: Infused Documented by: dexmedeTOMIDine 0.9 % NaCL (Precedex) 400 mcg in 100 mls @ 0 mls/hr IV .Q0M [facility]; Protocol Last Titration: 11/09/21 16:54 Dose: Infused Documented by: Imipenem/Cilastatin Sodium 250 (mg/ Sodium Chloride) 100 mls @ 200 mls/hr IV Q6H [facility]; Protocol Last Infusion: 11/11/21 04:55 Dose: Infused Documented by: Norepinephrine Bitartrate 4 mg (/ Dextrose) 254 mls @ 0 mls/hr IV .Q0M [facility]; Protocol Last Titration: 11/10/21 10:00 Dose: 0 mcg/min, 0 mls/hr Documented by: Naloxone HCl (Naloxone 0.4 Mg/Ml Sdv) 0.1 mg IVP Q2M PRN PRN Reason: OPIATERV Ondansetron HCl (Ondansetron 2 Mg/Ml Sdv 2 Ml) 4 mg IVP Q8H PRN PRN Reason: vomiting, or N/V if npo Last Admin: 11/09/21 17:16 Dose: 4 mg Documented by: Oxycodone/Acetaminophen (Oxycodone-Apap 5-325 Mg Tablet) 1 tab PO Q6H PRN PRN Reason: MODERATE PAIN Last Admin: 11/11/21 04:22 Dose: 1 tab Documented by: Pantoprazole Sodium (Pantoprazole 40 Mg Sdv) 40 mg IVP Q24H [facility] Last Admin: 11/10/21 21:45 Dose: 40 mg Documented by: Zinc Gluconate (Zinc Gluconate 50 Mg Tablet) 50 mg PO DAILY [facility] Last Admin: 11/10/21 09:53 Dose: 50 mg Documented by: Vitals/I&O/Wt Last Vital Signs Temp 98.3 F 11/12/21 04:00 Pulse 100 11/12/21 14:00 Resp 30 H 11/12/21 13:01 BP 105/65 11/12/21 13:01 Pulse Ox 96 11/12/21 13:01 11/12/21 11/12/21 11/12/21 06:59 14:59 22:59 Intake Total 600 / 1500 580 / 580 Output Total 1050 / 2400 700 / 700 Balance -450 / -900 -120 / -120 Physical Exam Narrative: EXAM NARRATIVE: General: alert, NAD HEENT: conj clear, EOMI, PERRL, mmm, Neck: supple, no meningismus Heme: no cervical LAP Pulmonary: Improving breath sounds on left lower lung zone,, no wheezing, rhonchi, crackles Cardiovascular: rrr, nl s1s2, no mrg Abdomen: Distended, mildly generalized tender,? no r/g, bs+ Extremities: pulses +, no edema, no c/c : no CVA tenderness Skin: intact, no rash MSK: no back or neck pain Neurologic: grossly intact Urinary Catheter Management: Anaya Latex: Cath Placed During This Visit: yes Reason for Continuing Indwelling Catheter: Accurate Measurement of Urinary Output in Critically Ill Patients Urinary Catheter Date of Insertion: 11/06/21 Urinary Catheter Time of Insertion: 15:10 Data : 11/11/21 04:43 11/12/21 07:00 Other Labs: Radiology Impressions Chest/Abdomen/Pelvis CT 11/05/21 17:12 IMPRESSION: 1. No evidence for pulmonary embolus. 2. No evidence for metastatic disease. 3. Left pleural effusion with left lower lobe atelectasis. 4. Scattered atelectasis and scarring in both lungs. IMPRESSION: 1. Severe peritoneal carcinomatosis in multiple locations within the peritoneal cavity and mesentery. This could be of ovarian or gastrointestinal origin. No definite ovarian mass is visualized. 2. There is soft tissue caking along the sigmoid colon with likely invasion of the colon wall. This is most likely peritoneal carcinomatosis. Primary malignancy of the colon is not excluded. 3. Large amount of ascites which is of fluid density. No evidence is suggests intraperitoneal hemorrhage. COMMENTS: Consistent with the [employer]'s Incidental Findings Committee white paper (J [employer] Nighat [employer]iol 2018): Any incidental renal lesion less than 1 cm or classified as too small to characterize, or any incidental cystic renal lesion characterized as simple-appearing, is likely benign. No follow-up imaging is recommended for these lesions per consensus recommendations based on imaging criteria. Venous Duplex 11/06/21 22:31 IMPRESSION: No evidence of deep vein thrombosis. Chest X-Ray 11/07/21 08:59 IMPRESSION: 1. Patchy bibasilar airspace opacities may reflect atelectasis versus pneumonia. 2. Mild interstitial pulmonary edema with small bilateral pleural effusions. Paracentesis Ultrasound 11/12/21 09:00 IMPRESSION: Uncomplicated paracentesis yielding 1100 ml of peritoneal fluid. Specimen collected for analysis as requested. Laboratory Results WBC 18.1 10^3/uL (4.0-10.0) H 11/11/21 04:43 RBC 4.13 10^6/uL (4.1-5.3) 11/11/21 04:43 Hgb 10.0 g/dL (11.5-15.3) L 11/11/21 04:43 Hct 31.3 % (37.0-47.0) L 11/11/21 04:43 MCV 75.8 fl (81-99) L 11/11/21 04:43 MCH 24.2 pg (28.0-34.0) L 11/11/21 04:43 MCHC 31.9 g/dL (30.0-36.0) 11/11/21 04:43 RDW 16.4 % (12.1-15.1) H 11/11/21 04:43 Plt Count 380 10^3/cmm (130-400) 11/11/21 04:43 MPV 11.3 fL (7.4-10.4) H 11/11/21 04:43 Neut % (Auto) 78.7 % 11/10/21 03:19 Lymph % (Auto) Not Reportable 11/11/21 04:43 [place] % (Auto) Not Reportable 11/11/21 04:43 Eos % (Auto) 0.0 % 11/10/21 03:19 Baso % (Auto) 0.4 % 11/10/21 03:19 Neut # (Auto) 12.69 10^3/uL (1.8-7.7) H 11/10/21 03:19 Lymph # (Auto) Not Reportable 11/11/21 04:43 [place] # (Auto) Not Reportable 11/11/21 04:43 Eos # (Auto) 0.0 10^3/uL (0.0-0.8) 11/10/21 03:19 Baso # (Auto) 0.1 10^3/uL (0.0-0.1) 11/10/21 03:19 Nucleated RBC % (auto) 0.2 % 11/10/21 03:19 Total Counted 100 (0-100) 11/11/21 04:43 Atypical Lymphs % 1.0 % (0-5) 11/11/21 04:43 Absolute Neutrophils 15.4 10^3/cmm (1.4-6.5) H 11/11/21 04:43 Segmented Neutrophils 77 % 11/11/21 04:43 Abs Segm Neuts (Man) 13.9 10/cmm (1.6-7.1) H 11/11/21 04:43 Band Neutrophils 8.0 % 11/11/21 04:43 Abs Band Neuts (Man) 1.4 10^3/cmm (0.0-1.2) H 11/11/21 04:43 Absolute Lymphocytes 1.8 10^3/cmm (1.2-3.4) 11/11/21 04:43 Lymphocytes (Manual) 9 % 11/11/21 04:43 Monocytes (Manual) 2.0 % 11/11/21 04:43 Absolute Monocytes 0.4 10^3/cmm (0.1-0.6) 11/11/21 04:43 Eosinophils (Manual) 0 % 11/11/21 04:43 Absolute Eosinophils 0.0 10^3/cmm (0.0-0.7) 11/11/21 04:43 Basophils (Manual) 0.0 % 11/11/21 04:43 Absolute Basophils 0.0 10^3/cmm (0.0-0.2) 11/11/21 04:43 Metamyelocytes 2.0 % 11/11/21 04:43 Myelocytes 1.0 % 11/11/21 04:43 Nucleated RBCs 1.0 /100WBC (0-1) 11/11/21 04:43 Nucleated RBCs # 0.0 /100WBC 11/10/21 03:19 Toxic Granulation 1+ H 11/07/21 03:45 Platelet Estimate Normal (Normal) 11/11/21 04:43 Hypochromasia 1+ H 11/11/21 04:43 Poikilocytosis 1+ H 11/11/21 04:43 Anisocytosis 1+ H 11/09/21 03:24 Target Cells 1+ H 11/11/21 04:43 Ovalocytes Trace 11/11/21 04:43 PT 17.20 SECONDS (12.1-14.9) H 11/08/21 06:55 INR 1.37 (0.8-1.2) H 11/08/21 06:55 D-Dimer 4.98 ug/mIFEU (0-0.59) H 11/11/21 04:43 Specimen Type Arterial 11/08/21 09:29 Sample Site Radial, right 11/08/21 09:29 ABG pH 7.43 (7.35-7.45) 11/08/21 09:29 ABG pCO2 27.4 mmHg (35-45) L 11/08/21 09:29 ABG pO2 65.7 mmHg (80.0-100.0) L 11/08/21 09:29 ABG HCO3 18.1 mmol/L (22-26) L 11/08/21 09:29 ABG O2 Saturation 95.6 11/08/21 09:29 ABG Base Excess -5.3 mmol/L (-2.0-2.0) L 11/08/21 09:29 James Test Pos 11/08/21 09:29 A-a O2 Gradient 24.0 mmHg (5-10) H 11/08/21 09:29 Hematocrit 29.6 % (37-47) L 11/08/21 09:29 Hgb O2 Saturation 95.0 % (95-100) 11/08/21 09:29 Carboxyhemoglobin 0.7 %THgb (0.4-20.1) 11/08/21 09:29 Methemoglobin < 0.0 % (0.4-1.5) L 11/08/21 09:29 Total Hemoglobin 9.7 g/dL (12-16) L 11/08/21 09:29 Sodium 136.0 mmol/L (131-143) 11/08/21 09:29 Potassium 4.2 mmol/L (3.5-5.0) 11/08/21 09:29 Glucose 130.0 mg/dL (70-115) H 11/08/21 09:29 Ionized Calcium 1.2 mmol/L (1.1-1.4) 11/08/21 09:29 O2 Delivery Device Bipap 11/08/21 09:29 O2 Liters/Min 13.0 % 11/07/21 01:47 FiO2 40.0 % 11/08/21 09:29 Agricultural Engineering Technician ID Ed 11/08/21 09:29 Sodium 136 mmol/L (136-145) 11/12/21 07:00 Potassium 3.6 mmol/L (3.5-5.1) 11/12/21 07:00 Chloride 103 mmol/L (98-107) 11/12/21 07:00 Carbon Dioxide 22 mmol/L (22-29) 11/12/21 07:00 Anion Gap 14.6 (5-19) 11/12/21 07:00 BUN 76 mg/dL (6-20) H 11/12/21 07:00 Creatinine 1.1 mg/dL (0.5-0.9) H 11/12/21 07:00 GFR Calculation 51.2 mL/min (90-130) L 11/12/21 07:00 Glucose 106 mg/dL (65-115) 11/12/21 07:00 Estimat Average Glucose 108 11/05/21 16:34 Hemoglobin A1c 5.4 % (4.0-6.0) 11/05/21 16:34 Calculated Osmolality 305 mOsm/kg (285-295) H 11/12/21 07:00 Lactic Acid 4.6 mmol/L (0.5-2.2) H* 11/06/21 07:29 Lactic Acid (Sepsis) 4.1 mmol/L (0.5-2.2) H* 11/06/21 10:29 Lactate 1.1 mmol/L (0.5-2.2) 11/09/21 03:24 Uric Acid 9.1 mg/dL (2.4-5.7) H 11/12/21 07:00 Calcium 8.3 mg/dL (8.5-10.5) L 11/12/21 07:00 Phosphorus 3.0 mg/dL (2.5-4.5) 11/12/21 07:00 Magnesium 2.1 mg/dL (1.7-2.3) 11/12/21 07:00 Iron 8 ug/dL (37-145) L 11/09/21 03:24 TIBC 107 mcg/dl 11/09/21 03:24 % Saturation 7.4 % (20-50) L 11/09/21 03:24 Unsat Iron Binding 99 ug/dL (112-347) L 11/09/21 03:24 Ferritin 517 ng/mL (15-150) H 11/09/21 03:24 Total Bilirubin 1.1 mg/dL (0.15-1.2) 11/12/21 07:00 AST 72 U/L (0-32) H 11/12/21 07:00 ALT 20 U/L (0-33) 11/12/21 07:00 Alkaline Phosphatase 187 IU/L (35-105) H 11/12/21 07:00 Creatine Kinase 58 U/L (26-192) 11/05/21 16:34 Troponin T Baseline 7 ng/L (0-10) 11/05/21 23:00 Troponin T 120 Minute 6.00 ng/L (0-10) 11/06/21 01:20 Delta Troponin T Not Reportable 11/06/21 01:20 Troponin T Hi Sens 6Hr 6.42 ng/L (0-10) 11/06/21 06:58 Troponin T Hi Sens 6Hr Delta -0.6 ng/L (0-12) L 11/06/21 06:58 C-Reactive Protein 117.4 mg/L (0.0-4.9) H 11/11/21 04:43 NT-Pro-B Natriuret Pep 02445 pg/mL (0-125) H 11/07/21 16:03 Total Protein 6.0 g/dL (6.6-8.7) L 11/12/21 07:00 Albumin 3.0 g/dL (3.5-5.2) L 11/12/21 07:00 Globulin 3.0 g/dL (1.3-4.6) 11/12/21 07:00 Lipase 8 U/L (13-60) L 11/05/21 16:34 25-OH Vitamin D Total 18 ng/mL (30-100) L 11/09/21 03:24 1,25 Dihydroxy Vit D2 <8 pg/mL 11/08/21 06:55 1,25 Dihydroxy Vit D3 88 pg/mL 11/08/21 06:55 Procalcitonin 5.33 ng/mL (0-0.5) H 11/05/21 16:34 TSH 1.76 uIU/mL (0.27-4.20) 11/05/21 23:00 PTH Intact 68.3 pg/mL (15-65) H 11/09/21 03:24 Calcium (PTH Intact) 9.0 mg/dL (8.5-10.5) 11/09/21 03:24 Urine Color Yellow (Yellow) 11/09/21 16:59 Urine Appearance Clear (CLEAR) 11/09/21 16:59 Urine pH 5 (5-7) 11/09/21 16:59 Ur Specific [place] 1.015 (1.005-1.030) 11/09/21 16:59 Urine Protein Trace (Negative) 11/09/21 16:59 Urine Glucose (UA) Norm (Normal) 11/09/21 16:59 Urine Ketones Negative (Negative) 11/09/21 16:59 Urine Blood 3+ (Negative) H 11/09/21 16:59 Urine Nitrate Negative (Negative) 11/09/21 16:59 Urine Bilirubin Neg (Negative) 11/09/21 16:59 Urine Urobilinogen Norm mg/dL (Negative) 11/09/21 16:59 Ur Leukocyte Esterase Negative (Negative) 11/09/21 16:59 Urine RBC 0-4 /hpf (0-2) H 11/09/21 16:59 Urine WBC None /hpf (0-5) 11/09/21 16:59 Ur Squamous Epith Cells 0-4 /hpf (0-5) H 11/09/21 16:59 Amorphous Sediment Not Reportable 11/09/21 16:59 Urine Bacteria 1+ /hpf (NONE) H 11/09/21 16:59 Hyaline Casts 5-10 /lpf H 11/06/21 06:03 Coarse Granular Casts 0-4 /lpf H 11/06/21 06:03 Urine Mucus Trace /hpf 11/09/21 16:59 Ur Random Sodium 46 mmol/L 11/09/21 16:59 Ur Random Potassium 37 mmol/L 11/09/21 16:59 Ur Random Chloride 52 mmol/L 11/09/21 16:59 Urine Creatinine 68 mg/dL (28-) 11/09/21 03:30 Fluid Color Red 11/05/21 Unknown Fluid Appearance Cloudy 11/05/21 Unknown Fluid Specific Grav 1.015 11/05/21 Unknown Fluid pH 8.0 11/05/21 Unknown Fluid WBC 663 /uL 11/05/21 Unknown Fluid RBC 54.000 10^3/uL 11/05/21 Unknown Fld Polynuclear WBCs # 0.643 11/05/21 Unknown Fld Polynuclear WBCs % 97.000 % 11/05/21 Unknown Fl Mononucl WBCs #(Auto) 0.020 11/05/21 Unknown Fl Mononuclear % Auto 3.000 % 11/05/21 Unknown Fluid Glucose 3.0 mg/dL 11/05/21 Unknown Fluid Total Protein 4.9 g/dL 11/05/21 Unknown Fluid Albumin 2.8 g/dL 11/05/21 Unknown Fluid LDH TNP 11/05/21 Unknown Fluid Amylase TNP 11/05/21 Unknown Fluid Alk Phosphatase 29 IU/L 11/05/21 Unknown Fluid Cholesterol 26 mg/dL (0-200) 11/05/21 Unknown Fluid Triglycerides 36 mg/dL (0-150) 11/05/21 Unknown Fluid Uric Acid 9 mg/dL 11/05/21 Unknown Peritoneal Color Adrianne (Pale Yellow) 11/12/21 08:30 Peritoneal Appearance Cloudy (Clear) 11/12/21 08:30 Peritoneal WBC 175 /uL 11/12/21 08:30 Peritoneal RBC 34 10^3/uL 11/12/21 08:30 Periton Mononu # Auto 0.016 10^3/uL 11/12/21 08:30 Mononuclear WBCs % 9.200 % 11/12/21 08:30 Polynuclear WBCs % 90.800 % 11/12/21 08:30 Perit Polynuc WBCs # 0.159 10^3/uL 11/12/21 08:30 Peritoneal Diff Commnt Yes 11/12/21 08:30 Vancomycin Trough 17.0 ug/mL (10-15) H 11/07/21 21:50 Random Vancomycin 11.2 ug/mL (20.0-40.0) L 11/12/21 04:24 Serum Ketones Negative (Negative) 11/05/21 16:34 Coronavirus 229E (PCR) Not detected (NOT DETECT) 11/05/21 17:41 Hepatitis C Antibody Non-reactive (Nonreactive) 11/07/21 21:56 SARS-CoV-2 (PCR) Detected (NOT DETECT) A 11/05/21 17:41 Micro: Microbiology 11/12/21 08:30 Gram Stain - Final Ascites Fluid 11/05/21 Unknown Gram Stain - Final Peritoneal Fluid Anaerobic Culture - Preliminary Body Fluid Culture - Final 11/10/21 10:52 Blood Culture - Preliminary Blood NEGATIVE TO DATE 11/10/21 09:50 Blood Culture - Preliminary Blood NEGATIVE TO DATE A&P Assessment and plan (1) Spontaneous bacterial peritonitis: Status: Acute (2) Septic shock: Status: Acute (3) COVID: Status: Acute (4) Acute kidney injury: Status: Acute (5) Abdominal carcinomatosis: Status: Acute Plan #Septic shock likely secondary to Spontaneous bacterial peritonitis/left lower lobe pneumonia-shock resolved #Left pleural effusion likely secondary to large volume ascites vs infection- improved s/p paracentesis and significant diuresis #COVID-19 positive-down to 2 L of nasal cannula #LASHAUN-likely secondary to prerenal due to septic shock/contrast induced/[id number] #CT-guided biopsy of abdominal mass positive for metastatic adenocarcinoma- 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 -Mentation improved; On precedex for anxiety -Currently down to 2 L on nasal cannula- -Left pleural effusion likely secondary to large volume ascites-diuresing well with Lasix -Currently on baricitinib, remdesivir and Decadron for COVID-19 pneumonia -need close monitoring for saturation -Off pressors -S/p paracentesis 1600 cc adrianne-colored few days back and also 1100 cc drained today morning -fluid analysis neutrophils > 250 suggestive of SBP-currently on imipenem -Cultures from peritoneal fluid are pending; SAAG <1.1 suggestive of exudative -Renal function significantly improving with Lasix; very good urine output and may not need hemodialysis -We will continue to monitor urine output, electrolytes, renal functions-if worsen we will plan for hemodialysis, nephrology on board -Elevated procalcitonin can be secondary to LASHAUN vs sepsis; currrently covered with vancomycin and imipenem, as pt is responding and off pressors, recommended to complete 7 days -1/4 blood culture bottles grew Clostridium perfringens-possibly translocation from GI angel - Once pt is clincally stable, Pt to follow up with Oncology for metastatic adenocarcinoma - Overall prognosis: guarded - Patient and family ( ) updated at bedside. -Renal diet as tolerated - DVT ppx: Heparin - GI ppx: PPI -Patient can be moved out of ICU Recommendations conveyed to hospitalist, RN and RT taking care of the patient. Attestations Medical Necessity Statement*: assessment of management of peritonitis, anaerobe bacteremia, in setting of peritoneal carcinomatosis with recurrent ascites, [id number] requiring supplemental oxygen, currently off pressors, improving renal functions-patient can be moved out of ICU Time Spent in Patient Care: Greater than 35 minutes (>than 50% of time spent in counselling and/or direct pt care on unit) . Critical Care Time: The high probability of a clinically significant, sudden or life threatening deterioration of the patient's [pulmonary, cardiac, renal system(s) required my full and direct attention, intervention and personal management. The critical care time is as shown. This time is in addition to time spent performing any reported procedures but includes the following: [x] Data and vital sign review and interpretation [x] Patient assessment, examination and intervention [x] Documentation [x] Medication orders and management Critical Care Time (min): 45 Coding Level of Care Code Established Pt Acute Band Splicer for Chg Fwd Patient Type Established History Comprehensive Exam Comprehensive Medical Decision Making High Complexity Diagnoses Spontaneous bacterial peritonitis K65.2 Septic shock A41.9; R65.21 COVID U07.1 Acute kidney injury N17.9 Abdominal carcinomatosis C76.2 Time Spent (min) 45
[2021-11-12] MEDS: pantoprazole 40 mg SDV IVP (22:36)
[2021-11-12] MEDS: amitriptyline 25 mg Tablet PO (23:06)
[2021-11-13] VITALS (16 sets, daily range): BP systolic 98–130; BP diastolic 60–68; PULSE 92–110; RESP 16–21; TEMP 36.3–37.2; O2SAT 94–97
[2021-11-13] MEDS: oxyCODONE-APAP 5-325 mg Tablet 1 TAB PO ×3 (04:47→21:04)
[2021-11-13 07:09] LABS: Basophils # 0.2 10^3/uL (0.0-0.1); Basophils % 0.4 %; Eosinophils # 0.3 10^3/uL (0.0-0.8); Eosinophils % 0.7 %; Hematocrit 28.2 % (37.0-47.0); Hemoglobin 8.8 g/dL (11.5-15.3); Lymphocytes # 1.8 10^3/uL (0.8-4.8); Lymphocytes % 4.2 %; Mean Corpuscular HGB Conc 31.2 g/dL (30.0-36.0); Mean Corpuscular Hemoglobin 24.4 pg (28.0-34.0); Mean Corpuscular Volume 78.1 fl (81-99); Mean Platelet Volume 11.1 fL (7.4-10.4); Monocytes % 2.3 %; Neutrophils # 34.07 10^3/uL (1.8-7.7); Nucleated Red Blood Cells % 0 %; Platelet Count 565 10^3/cmm (130-400); Red Blood Count 3.61 10^6/uL (4.1-5.3); Red Cell Distribution Width 16.8 % (12.1-15.1)
[2021-11-13 07:46] LABS: Alanine Aminotransferase 17 U/L (0-33); Albumin Level 2.8 g/dL (3.5-5.2); Alkaline Phosphatase 155 IU/L (35-105); Anion Gap 15.3 (5-19); Aspartate Amino Transferase 54 U/L (0-32); Blood Urea Nitrogen 54 mg/dL (6-20); Carbon Dioxide 22 mmol/L (22-29); Chloride 104 mmol/L (98-107); Globulin 2.3 g/dL (1.3-4.6); Glomerular Filtration Rate 73.9 mL/min (90-130); Glucose 117 mg/dL (65-115); Magnesium 1.9 mg/dL (1.7-2.3); Osmolality Calculated 300 mOsm/kg (285-295); Phosphorus 2.6 mg/dL (2.5-4.5); Potassium 4.3 mmol/L (3.5-5.1); Sodium 137 mmol/L (136-145); Total Bilirubin 1.2 mg/dL (0.15-1.2); Total Protein 5.1 g/dL (6.6-8.7); Uric Acid 6.6 mg/dL (2.4-5.7)
[2021-11-13 07:50] LABS: D Dimer 4.88 ug/mIFEU (0-0.59)
[2021-11-13] MEDS: budesonide 0.5 mg/2 mL Neb INHALATION ×2 (08:07→19:48)
[2021-11-13] MEDS: docusate sodium 100 mg Capsule PO ×2 (08:41→18:12)
[2021-11-13] MEDS: zinc gluconate 50 mg Tablet PO (08:41)
[2021-11-13] MEDS: allopurinol 100 mg Tablet PO (08:42)
[2021-11-13] MEDS: ascorbic acid 500 mg Tablet PO ×2 (08:42→18:12)
[2021-11-13] MEDS: heparin 5,000 unit/mL INJ 1 mL 5000 UNIT SUBCUT ×2 (08:42→21:04)
[2021-11-13 10:34] LABS: Slide Review Slide Review Perform
[2021-11-13 10:41] LABS: White Blood Count 42.7 10^3/uL (4.0-10.0)
--- NOTE | 2021-11-13 11:50 | P.PN_ITS ---
Subjective Subjective: Interval history: She has not had a bowel movement she says since being in the hospital. Having abdominal discomfort. Request to go home. Discussed with her and her regarding increase in WBC count today. She otherwise is doing okay in terms of her breathing, no chest pain or pressure. Has not had much appetite. Vitals/I&O/Wt Last Vital Signs Temp 98.5 F 11/13/21 11:14 Pulse 97 11/13/21 11:14 Resp 16 11/13/21 11:14 BP 105/68 11/13/21 11:14 Pulse Ox 97 11/13/21 11:14 11/12/21 11/13/21 11/13/21 22:59 06:59 14:59 Intake Total 100 / 680 560 / 1240 120 / 120 Output Total 600 / 1300 Balance 100 / -20 -40 / -60 120 / 120 Weight last 48 hrs Weight 88.813 kg Physical Exam Narrative: EXAM NARRATIVE: at bedside. Const: COMMON NORMALS: no acute distress and patient oriented x3 GENERAL APPEARANCE: cooperative HENMT: COMMON NORMALS: oropharynx normal Neck/C-Spine: COMMON NORMALS: no JVD Resp: COMMON NORMALS: normal respiratory effort and clear to auscultation bilaterally AUSCULTATION: clear to auscultation bilaterally Cardio: COMMON NORMALS: no JVD, regular rhythm, S1 normal heart sound present, S2 normal heart sound present and No murmurs present (Cardio) RHYTHM: regular rhythm HEART SOUNDS: S1 normal heart sound present and S2 normal heart sound present GI: COMMON NORMALS: Soft to palpation INSPECTION: Yes abdominal distension PALPATION: Yes Soft to palpation and Yes Tenderness to palpation present (GI) Extremity: COMMON NORMALS: no joint enlargement and no pedal edema Neuro: COMMON NORMALS: patient oriented x3 and moves all extremities Skin: COMMON NORMALS: no rashes or lesions noted GENERAL SKIN EXAM: no rashes or lesions noted Urinary Catheter Management: Anaya Latex: Cath Placed During This Visit: yes Reason for Continuing Indwelling Catheter: Accurate Measurement of Urinary Output in Critically Ill Patients Urinary Catheter Date of Insertion: 11/06/21 Urinary Catheter Time of Insertion: 15:10 Data : 11/13/21 06:57 11/13/21 06:57 Micro: Microbiology 11/12/21 08:30 Gram Stain - Final Ascites Fluid Body Fluid Culture - Preliminary 11/08/21 05:17 Blood Culture - Final Blood Staphylococcus epidermidis 11/08/21 05:17 Blood Culture - Final Blood NO GROWTH AFTER 5 DAYS 11/05/21 Unknown Gram Stain - Final Peritoneal Fluid Anaerobic Culture - Preliminary Body Fluid Culture - Final A&P Assessment and plan (1) Spontaneous bacterial peritonitis: Leukocytosis worsening, today very high up to 42.7. Discussed with her and her . Possibly steroid related, but cannot exclude relation to infection. She is having abdominal discomfort although also has not had a bowel movement she says since being in the hospital. Having some irritation. Blood pressures have been better. Encouraged her if she is able to get up and ambulate in her room. Discussed will order suppository, as well as oral laxatives as in some cases constipation/obstipation can be contributing to WBC count elevation as well. She is agreeable to continue treatment in the hospital today. More abdominal distention, additional paracentesis today, 1100 mL reddish fluid. Analysis and cultures requested. Continue Primaxin at this time. PT, OT Status post paracentesis 11/08, culture without bacteria on Gram stain, no growth so far, follow-up. Status: Acute (2) Sepsis: Resolved septic shock, she weaned off pressor. Still sepsis with leukocytosis, sinus tachycardia. Afebrile. Discussed with her and her regarding Clostridium perfringens growing on culture from 11/05. Possible translocation secondary to colonic metastatic invasion. No anaerobe growth so far on repeat cultures. Noted 11/08 culture growing staph epidermidis, this would suspect more to be contamination. 2/2 cultures so far without growth. Follow-up. Continue Primaxin. Stopped vancomycin. Likely peritonitis based on cell count studies, although could be affected by malignancy. Likely bacterial translocation from colonic invasion. Follow-up culture. So far no results yet. No organisms from initial paracentesis. Paracentesis repeated 11/12. Septic shock resolved Weaning down on pressor requirement. Still requiring low rate pressor despite temporarily coming off. Maintain blood pressure. Continue empiric antibiotics at this time. Leukocytosis persist, but so far without fever since yesterday. Possible peritonitis with neutrophilic predominance, 660 WBCs, 97% PMNs. Fol low-up culture results. Status: Acute Qualifiers: Severe sepsis shock status: with septic shock (3) Abdominal carcinomatosis: Plans for initiation of chemotherapy next week if possible. Discussed with her and her discussion with surgery regarding PICC line after discharge follow-up in office with follow-up cultures and if clear then arrangements to replace PICC line with port. Will need port eventually. Discussed with surgery, currently due to recent positive blood cultures will follow up with her in clinic, initially PICC line to allow initiation of chemo until repeat blood cultures resulting negative Again abdominal distention. Paracentesis repeated 11/12, additional 1100 drained. Unknown primary, adenocarcinoma. 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 Status: Acute (4) COVID: Completed course of remdesivir. Dexamethasone. Wean down oxygen support as tolerating. Currently down to 2 L. Add antitussives. Continue heparin VTE prophylaxis. Discontinued baricitinib given concern for peritonitis and improving oxygenation Status: Acute (5) Acute kidney injury: Resolving. Producing urine. Has not required hemodialysis. Continue close monitoring. Hold lisinopril. Status: Acute Plan Obstipation. Attestations Medical Necessity Statement*: Continue admission for assessment management of sepsis, peritonitis, with peritoneal carcinomatosis, rising leukocytosis, obstipation. Coding Level of Care Code Acute Information Coordinator [facility] Diagnoses Spontaneous bacterial peritonitis K65.2 Sepsis A41.9 Severe sepsis shock status: with septic shock Abdominal carcinomatosis C76.2 COVID U07.1 Acute kidney injury N17.9
[2021-11-13] MEDS: polyethylene glycol 3350 Pkt 17 gm PO ×2 (12:19→18:12)
[2021-11-13] MEDS: magnesium citrate Btl 296 mL 150 ML PO (12:20)
[2021-11-13] MEDS: bisacodyl 10 mg Supp PR (12:21)
--- NOTE | 2021-11-13 13:41 | PC.OT ---
Attempted to see patient for OT eval. Patient declined due to fatigue. Will attempt tomorrow.
--- NOTE | 2021-11-13 16:07 | PC.NURSE ---
Notified Dr. Quintana for Patient to remove dumont and get cough syrup
[2021-11-13] MEDS: guaiFENesin-dextromethorphan UDC 10 mL 5 ML PO (16:14)
[2021-11-13] MEDS: amitriptyline 25 mg Tablet PO (21:04)
[2021-11-13] MEDS: pantoprazole 40 mg SDV IVP (21:27)
[2021-11-14] VITALS (14 sets, daily range): BP systolic 101–116; BP diastolic 59–72; PULSE 94–102; RESP 16–18; TEMP 36.4–37.1; O2SAT 90–96
[2021-11-14 07:09] LABS: Basophils # 0.2 10^3/uL (0.0-0.1); Basophils % 0.4 %; Eosinophils # 0.4 10^3/uL (0.0-0.8); Eosinophils % 0.9 %; Hematocrit 29.5 % (37.0-47.0); Hemoglobin 9.3 g/dL (11.5-15.3); Lymphocytes # 1.5 10^3/uL (0.8-4.8); Lymphocytes % 3.6 %; Mean Corpuscular HGB Conc 31.5 g/dL (30.0-36.0); Mean Corpuscular Hemoglobin 24.9 pg (28.0-34.0); Mean Corpuscular Volume 79.1 fl (81-99); Monocytes # 1.2 10^3/uL (0.2-0.9); Monocytes % 2.9 %; Neutrophils # 34.57 10^3/uL (1.8-7.7); Nucleated Red Blood Cells % 0.1 %; Platelet Count 683 10^3/cmm (130-400); Red Blood Count 3.73 10^6/uL (4.1-5.3); Red Cell Distribution Width 17.1 % (12.1-15.1)
[2021-11-14 07:12] LABS: Neutrophils % 92.2 %
[2021-11-14 07:16] LABS: White Blood Count 42.5 10^3/uL (4.0-10.0)
[2021-11-14 07:39] LABS: Vancomycin Random < 4.0 ug/mL (20.0-40.0)
[2021-11-14 07:41] LABS: Alanine Aminotransferase 17 U/L (0-33); Albumin Level 2.8 g/dL (3.5-5.2); Alkaline Phosphatase 174 IU/L (35-105); Aspartate Amino Transferase 44 U/L (0-32); Blood Urea Nitrogen 37 mg/dL (6-20); Calcium 8.2 mg/dL (8.5-10.5); Carbon Dioxide 23 mmol/L (22-29); Chloride 106 mmol/L (98-107); Globulin 2.4 g/dL (1.3-4.6); Glucose 101 mg/dL (65-115); Magnesium 1.9 mg/dL (1.7-2.3); Osmolality Calculated 299 mOsm/kg (285-295); Phosphorus 2.4 mg/dL (2.5-4.5); Sodium 140 mmol/L (136-145); Total Bilirubin 0.7 mg/dL (0.15-1.2); Total Protein 5.2 g/dL (6.6-8.7)
[2021-11-14 07:46] LABS: Anion Gap 15.9 (5-19); Potassium 4.9 mmol/L (3.5-5.1)
[2021-11-14] MEDS: budesonide 0.5 mg/2 mL Neb INHALATION ×2 (08:21→19:33)
[2021-11-14] MEDS: oxyCODONE-APAP 5-325 mg Tablet 1 TAB PO ×2 (09:45→17:41)
[2021-11-14] MEDS: fluoxetine 20 mg Capsule 40 MG PO (09:46)
[2021-11-14] MEDS: docusate sodium 100 mg Capsule PO ×2 (09:46→17:42)
[2021-11-14] MEDS: zinc gluconate 50 mg Tablet PO (09:46)
[2021-11-14] MEDS: polyethylene glycol 3350 Pkt 17 gm PO (09:47)
[2021-11-14] MEDS: ascorbic acid 500 mg Tablet PO ×2 (09:47→17:41)
[2021-11-14] MEDS: heparin 5,000 unit/mL INJ 1 mL 5000 UNIT SUBCUT ×2 (09:47→22:20)
[2021-11-14] MEDS: allopurinol 100 mg Tablet PO (09:47)
--- NOTE | 2021-11-14 15:43 | PC.NURSE ---
DR. BIRD HAS GIVEN PERMISSION FOR AND DAUGHTER TO STAY AT BEDSIDE LONG THEY TRADE OUT WITH ONE ANOTHER. WINDSMITH NOTIFIED.
--- NOTE | 2021-11-14 18:11 | CTR_ITS ---
PROCEDURE INFORMATION: Exam: CT Abdomen And Pelvis Without Contrast Exam date and time: 11/14/2021 6:11 PM Age: 56 years old Clinical indication: Abdominal pain; Generalized; Prior surgery; Surgery date: 6+ months; Surgery type: Gb; Patient HX: 2 days S/P paracentesis C/O worsening abd discomfort; Additional info: Leukocytosis, tenderness, assess for abscess, free air, etc TECHNIQUE: Imaging protocol: Computed tomography of the abdomen and pelvis without contrast. Radiation optimization: All CT scans at this facility use at least one of these dose optimization techniques: automated exposure control; mA and/or kV adjustment per patient size (includes targeted exams where dose is matched to clinical indication); or iterative reconstruction. COMPARISON: CT biopsy abdomen percut [id number] 11/04/2021 1:31 PM RADIATION DOSE METRICS: Total DLP (mGy-cm): 1787.67 FINDINGS: Lungs: There is subsegmental atelectasis in the right lung. Pleural spaces: Moderate left pleural effusion. Liver: The liver is normal. Gallbladder and bile ducts: The gallbladder is absent. There is no intrahepatic or extrahepatic bile duct dilation. Pancreas: There is mild atrophy of the pancreas. Spleen: The spleen is unremarkable. Adrenal glands: The adrenal glands are unremarkable. Kidneys and ureters: The kidneys are unremarkable. No hydronephrosis or stones. No ureteral dilation. Stomach and bowel: The stomach is decompressed, preventing meaningful evaluation of wall thickness. There is mild sigmoid colonic diverticulosis without evidence of diverticulitis. Appendix: The appendix is not visible. Intraperitoneal space: There is diffuse nodular thickening of the greater omentum. There is no intraperitoneal free air. There is a large volume loculated ascites, similar to findings on 11/04/2021. Vasculature: There is mild aortic atherosclerotic disease. Lymph nodes: There are enlarged right lower quadrant mesenteric lymph nodes. Retroperitoneal, pelvic and inguinal lymph nodes are unremarkable. Urinary bladder: The urinary bladder is unremarkable. Reproductive: The uterus is unremarkable. There is no adnexal mass or large cyst. Bones/joints: There is mild degenerative disease in the lower lumbar spine. The pelvis and proximal femora are intact. Soft tissues: The abdominal wall is intact. CT/CT abdomen pelvis wo con [id number] IMPRESSION: 1. No acute findings. 2. No significant change since 11/04/2021. 3. Peritoneal carcinomatosis. 4. Moderate ascites. 5. Moderate left pleural effusion.
[2021-11-14] MEDS: amitriptyline 25 mg Tablet PO (20:22)
--- NOTE | 2021-11-14 22:00 | PM.PN ---
Subjective Subjective: Interval history: She is doing about the same. Denies chest pain or pressure. No trouble breathing. Generalized abdominal discomfort/tenderness persist. Poor appetite. Yesterday had several bowel movements. Vitals/I&O/Wt Last Vital Signs Temp 98.8 F 11/14/21 16:00 Pulse 102 H 11/14/21 19:43 Resp 18 11/14/21 19:43 BP 103/64 11/14/21 16:00 Pulse Ox 92 11/14/21 19:43 11/14/21 11/14/21 11/14/21 06:59 14:59 22:59 Intake Total 200 / 1040 580 / 580 340 / 920 Output Total 250 / 1300 Balance -50 / -260 580 / 580 340 / 920 Weight last 48 hrs Weight 88.813 kg Physical Exam Narrative: EXAM NARRATIVE: at bedside. Const: COMMON NORMALS: no acute distress and patient oriented x3 GENERAL APPEARANCE: cooperative HENMT: COMMON NORMALS: oropharynx normal Neck/C-Spine: COMMON NORMALS: no JVD Resp: COMMON NORMALS: normal respiratory effort and clear to auscultation bilaterally AUSCULTATION: clear to auscultation bilaterally Cardio: COMMON NORMALS: no JVD, regular rhythm, S1 normal heart sound present, S2 normal heart sound present and No murmurs present (Cardio) RHYTHM: regular rhythm HEART SOUNDS: S1 normal heart sound present and S2 normal heart sound present GI: COMMON NORMALS: Soft to palpation INSPECTION: Yes abdominal distension PALPATION: Yes Soft to palpation and Yes Tenderness to palpation present (GI) Extremity: COMMON NORMALS: no joint enlargement and no pedal edema Neuro: COMMON NORMALS: patient oriented x3 and moves all extremities Skin: COMMON NORMALS: no rashes or lesions noted GENERAL SKIN EXAM: no rashes or lesions noted Urinary Catheter Management: Anaya Latex: Cath Placed During This Visit: yes, but has since been removed by the nurse Reason for Continuing Indwelling Catheter: Acute Urinary Retention or Obstruction Urinary Catheter Date of Insertion: 11/06/21 Urinary Catheter Time of Insertion: 15:10 Date Urinary Catheter Removed: 11/13/21 Time Urinary Catheter Discontinued: 18:17 Data : 11/14/21 06:41 11/14/21 06:41 Micro: Microbiology 11/05/21 Unknown Gram Stain - Final Peritoneal Fluid Anaerobic Culture - Preliminary Body Fluid Culture - Final 11/12/21 08:30 Gram Stain - Final Ascites Fluid Body Fluid Culture - Preliminary A&P Assessment and plan (1) Spontaneous bacterial peritonitis: Persistent high leukocytosis. Did have 2 bowel movements yesterday. Still WBC 42.5. Afebrile. Blood pressure has been holding well. Repeat CT scan discussed with her and her . Assess for possible abscess, free air/perforation, etc with sigmoid colon invasion by metastatic disease. Discussed with her oncologist who will be reaching out also to Client Support Manager-Onc at a tertiary center, with consideration of possible transfer for surgical intervention, possible debulking, versus possible initiation of chemotherapy, although again with risk of persistent infection becoming worse. Continue empiric antibiotics. No growth on ascitic fluid. So far underwent paracentesis twice. Analysis and cultures requested. Continue Primaxin at this time. PT, OT Status: Acute (2) Sepsis: Off pressor, maintain blood pressure, but persistent high leukocytosis, sepsis. Continue Primaxin. So far no growth on ascitic fluid cultures. Additional assessment by CT abdomen pelvis. Pending discussion with consideration of surgical intervention at a tertiary facility. Resolved septic shock, she weaned off pressor. Discussed with her and her regarding Clostridium perfringens growing on culture from 11/05. Possible translocation secondary to colonic metastatic invasion. No anaerobe growth so far on repeat cultures. Noted 11/08 culture growing staph epidermidis, this would suspect more to be contamination. 2/2 cultures so far without growth. Follow-up. Continue Primaxin. Stopped vancomycin. Likely peritonitis based on cell count studies, although could be affected by malignancy. Likely bacterial translocation from colonic invasion. Follow-up culture. So far no results yet. No organisms from initial paracentesis. Paracentesis repeated 11/12. Status: Acute Qualifiers: Severe sepsis shock status: with septic shock (3) Abdominal carcinomatosis: Plans for initiation of chemotherapy next week if possible. Discussed with her and her discussion with surgery regarding PICC line after discharge follow-up in office with follow-up cultures and if clear then arrangements to replace PICC line with port. Will need port eventually. Discussed with surgery, currently due to recent positive blood cultures will follow up with her in clinic, initially PICC line to allow initiation of chemo until repeat blood cultures resulting negative Again abdominal distention. Paracentesis repeated 11/12, additional 1100 drained. Unknown primary, adenocarcinoma. Ovarian. Status: Acute (4) COVID: Weaned off to room air. Completed course of remdesivir. Dexamethasone. Wean down oxygen support as tolerating. Currently down to 2 L. Add antitussives. Continue heparin VTE prophylaxis. Discontinued baricitinib given concern for peritonitis and improving oxygenation Status: Acute (5) Acute kidney injury: Resolving. Producing urine. Has not required hemodialysis. Continue close monitoring. Hold lisinopril. Status: Acute Plan Obstipation. Attestations Medical Necessity Statement*: Continue admission for assessment of management of sepsis, possible persistent peritonitis, in setting of colonic invasion by peritoneal carcinomatosis with ovarian cancer, recovering from severe COVID-19. 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
[2021-11-14] MEDS: pantoprazole 40 mg SDV IVP (22:15)
[2021-11-15] VITALS (16 sets, daily range): BP systolic 101–120; BP diastolic 62–73; PULSE 68–103; RESP 16–20; TEMP 36.6–36.8; O2SAT 90–95
[2021-11-15] MEDS: oxyCODONE-APAP 5-325 mg Tablet 1 TAB PO ×5 (01:28→23:18)
[2021-11-15 03:55] LABS: Basophils # 0.1 10^3/uL (0.0-0.1); Basophils % 0.3 %; Eosinophils # 0.3 10^3/uL (0.0-0.8); Hematocrit 26.2 % (37.0-47.0); Hemoglobin 7.9 g/dL (11.5-15.3); Lymphocytes # 1.6 10^3/uL (0.8-4.8); Lymphocytes % 5.2 %; Mean Corpuscular HGB Conc 30.2 g/dL (30.0-36.0); Mean Corpuscular Hemoglobin 24.6 pg (28.0-34.0); Mean Corpuscular Volume 81.6 fl (81-99); Mean Platelet Volume 11.1 fL (7.4-10.4); Monocytes # 0.9 10^3/uL (0.2-0.9); Monocytes % 2.9 %; Neutrophils # 25.32 10^3/uL (1.8-7.7); Neutrophils % 83.8 %; Nucleated Red Blood Cells # 0.1 /100WBC; Nucleated Red Blood Cells % 0.3 %; Platelet Count 771 10^3/cmm (130-400); Red Blood Count 3.21 10^6/uL (4.1-5.3); Red Cell Distribution Width 17.8 % (12.1-15.1)
[2021-11-15 04:17] LABS: Alanine Aminotransferase 17 U/L (0-33); Albumin Level 2.5 g/dL (3.5-5.2); Alkaline Phosphatase 229 IU/L (35-105); Anion Gap 14.2 (5-19); Aspartate Amino Transferase 38 U/L (0-32); Blood Urea Nitrogen 28 mg/dL (6-20); Calcium 8.3 mg/dL (8.5-10.5); Carbon Dioxide 24 mmol/L (22-29); Chloride 104 mmol/L (98-107); Globulin 3.2 g/dL (1.3-4.6); Glucose 106 mg/dL (65-115); Osmolality Calculated 292 mOsm/kg (285-295); Potassium 4.2 mmol/L (3.5-5.1); Sodium 138 mmol/L (136-145); Total Bilirubin 0.6 mg/dL (0.15-1.2); Total Protein 5.7 g/dL (6.6-8.7)
[2021-11-15 04:32] LABS: Slide Review Slide Review Perform; White Blood Count 30.2 10^3/uL (4.0-10.0)
[2021-11-15] MEDS: budesonide 0.5 mg/2 mL Neb INHALATION ×2 (07:40→20:16)
[2021-11-15] MEDS: docusate sodium 100 mg Capsule PO ×2 (08:46→17:12)
[2021-11-15] MEDS: fluoxetine 20 mg Capsule 40 MG PO (08:46)
[2021-11-15] MEDS: allopurinol 100 mg Tablet PO (08:46)
[2021-11-15] MEDS: zinc gluconate 50 mg Tablet PO (08:46)
[2021-11-15] MEDS: polyethylene glycol 3350 Pkt 17 gm PO ×2 (08:46→17:12)
[2021-11-15] MEDS: ascorbic acid 500 mg Tablet PO ×2 (08:46→17:12)
[2021-11-15] MEDS: heparin 5,000 unit/mL INJ 1 mL 5000 UNIT SUBCUT ×2 (08:47→21:04)
--- NOTE | 2021-11-15 18:26 | PM.PN ---
Subjective Subjective: Interval history: leukocytosis tredning down to 30 today, afebrile, cytology from ascitic fluid reported as adenoca of breast primary, howevre prior bx with ovarian primary. Oncology service to assess for initiation of inaptient chemo. Severe oropharyngeal thrush noted on exam Medications: Reviewed: Yes Medication Review Details: Current Medications Acetaminophen (Acetaminophen 325 Mg Tablet) 650 mg PO Q6H PRN PRN Reason: Mild/Mod Pain Or Temp >/= 101 Albuterol/Ipratropium (Ipratropium-Albuterol 3 Ml Neb) 3 ml INHALATION Q4H.RESPIRATORY WALE Last Admin: 11/11/21 04:11 Dose: 3 ml Documented by: Allopurinol (Allopurinol 100 Mg Tablet) 100 mg PO DAILY WALE Last Admin: 11/10/21 09:53 Dose: 100 mg Documented by: Amitriptyline HCl (Amitriptyline 25 Mg Tablet) 25 mg PO BEDTIME WALE Last Admin: 11/10/21 21:44 Dose: 25 mg Documented by: Ascorbic Acid (Ascorbic Acid 500 Mg Tablet) 500 mg PO BID WALE Last Admin: 11/10/21 18:23 Dose: 500 mg Documented by: Budesonide (Budesonide 0.5 Mg/2 Ml Neb) 0.5 mg INHALATION BID.RESPIRATORY WALE Last Admin: 11/10/21 20:20 Dose: Not Given Documented by: Budesonide (Budesonide 0.5 Mg/2 Ml Neb) 0.5 mg INHALATION BID.RESPIRATORY WALE Last Admin: 11/10/21 20:20 Dose: 0.5 mg Documented by: Dexamethasone (Dexamethasone 10 Mg/Ml Inj) 6 mg IVP Q24H [facility] Last Admin: 11/11/21 05:30 Dose: 6 mg Documented by: Docusate Sodium (Docusate Sodium 100 Mg Capsule) 100 mg PO BID WALE Last Admin: 11/10/21 18:23 Dose: 100 mg Documented by: Ergocalciferol (Ergocalciferol (Vitamin D2) 50,000 Unit Capsule) 50,000 unit PO Q7D WALE Last Admin: 11/09/21 10:51 Dose: 50,000 unit Documented by: Furosemide (Furosemide 10 Mg/Ml Sdv 4ml) 40 mg IVP DAILY WALE Last Admin: 11/10/21 09:53 Dose: 40 mg Documented by: Heparin Sodium (Porcine) (Heparin 5,000 Unit/Ml Inj 1 Ml) 5,000 unit SUBCUT Q12H [facility] Last Admin: 11/10/21 21:42 Dose: 5,000 unit Documented by: Hydromorphone HCl (Hydromorphone 1 Mg/Ml Inj 1 Ml) 0.5 mg IVP Q4H PRN PRN Reason: PAIN Last Admin: 11/10/21 13:41 Dose: 0.5 mg Documented by: Vancomycin/PEG/NADA/Lysine/Water (Vancocin) 1,250 mg in 250 mls @ 250 mls/hr IV Q24H [facility] Last Infusion: 11/11/21 00:39 Dose: Infused Documented by: dexmedeTOMIDine 0.9 % NaCL (Precedex) 400 mcg in 100 mls @ 0 mls/hr IV .Q0M [facility]; Protocol Last Titration: 11/09/21 16:54 Dose: Infused Documented by: Imipenem/Cilastatin Sodium 250 (mg/ Sodium Chloride) 100 mls @ 200 mls/hr IV Q6H [facility]; Protocol Last Infusion: 11/11/21 04:55 Dose: Infused Documented by: Norepinephrine Bitartrate 4 mg (/ Dextrose) 254 mls @ 0 mls/hr IV .Q0M [facility]; Protocol Last Titration: 11/10/21 10:00 Dose: 0 mcg/min, 0 mls/hr Documented by: Naloxone HCl (Naloxone 0.4 Mg/Ml Sdv) 0.1 mg IVP Q2M PRN PRN Reason: OPIATERV Ondansetron HCl (Ondansetron 2 Mg/Ml Sdv 2 Ml) 4 mg IVP Q8H PRN PRN Reason: vomiting, or N/V if npo Last Admin: 11/09/21 17:16 Dose: 4 mg Documented by: Oxycodone/Acetaminophen (Oxycodone-Apap 5-325 Mg Tablet) 1 tab PO Q6H PRN PRN Reason: MODERATE PAIN Last Admin: 11/11/21 04:22 Dose: 1 tab Documented by: Pantoprazole Sodium (Pantoprazole 40 Mg Sdv) 40 mg IVP Q24H [facility] Last Admin: 11/10/21 21:45 Dose: 40 mg Documented by: Zinc Gluconate (Zinc Gluconate 50 Mg Tablet) 50 mg PO DAILY [facility] Last Admin: 11/10/21 09:53 Dose: 50 mg Documented by: Vitals/I&O/Wt Last Vital Signs Temp 98.2 F 11/15/21 15:29 Pulse 97 11/15/21 15:29 Resp 17 11/15/21 15:29 BP 120/73 11/15/21 15:29 Pulse Ox 90 11/15/21 15:29 11/15/21 11/15/21 11/15/21 06:59 14:59 22:59 Intake Total 100 / 1020 820 / 820 200 / 1020 Balance 100 / 1020 820 / 820 200 / 1020 Physical Exam Narrative: EXAM NARRATIVE: GEN: Awake, alert and oriented, no acute distress CVS: S1S2 N RS: CTA B/L Abd: Soft,mildly distended, BS+ 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 deficits Urinary Catheter Management: Anaya Latex: Cath Placed During This Visit: yes, but has since been removed by the nurse Reason for Continuing Indwelling Catheter: Acute Urinary Retention or Obstruction Urinary Catheter Date of Insertion: 11/06/21 Urinary Catheter Time of Insertion: 15:10 Date Urinary Catheter Removed: 11/13/21 Time Urinary Catheter Discontinued: 18:17 Data : 11/15/21 02:35 11/15/21 02:35 Micro: Microbiology 11/05/21 Unknown Gram Stain - Final Peritoneal Fluid Anaerobic Culture - Final Body Fluid Culture - Final 11/10/21 10:52 Blood Culture - Final Blood NO GROWTH AFTER 5 DAYS 11/10/21 09:50 Blood Culture - Final Blood NO GROWTH AFTER 5 DAYS 11/12/21 08:30 Gram Stain - Final Ascites Fluid Body Fluid Culture - Final A&P Assessment and plan (1) Spontaneous bacterial peritonitis: Status: Acute (2) Sepsis: Resolved septic shock, she weaned off pressor. Status: Acute Qualifiers: Severe sepsis shock status: with septic shock (3) Abdominal carcinomatosis: Plans for initiation of chemotherapy likely as inpatient. Case discussed by oncology with team at [facility]- latter recommend initiation of chemo followed by serial debulking Status: Acute (4) COVID: Weaned off to room air. Completed course of remdesivir. Dexamethasone. Wean down oxygen support as tolerating. Currently down to room air- intermittent 2 L. Continue heparin VTE prophylaxis. Discontinued baricitinib given concern for peritonitis and improving oxygenation Status: Acute (5) Acute kidney injury: Resolving. Producing urine. Status: Acute Plan Persistent high leukocytosis, however trending down today to 30. Afberile. Infectious w/up thus far with blood cx + Clostridium perfriengens on admission, since negative. Staph epidermidis on 11/10 likely to be contaminant. Blood cx not repeated with increased leukocytosis, will repeat today - risk of candidemia given prolonged hospital admission and prolonged abx course Paracentesis perfromed twice during admission- cx negative however may be clouded by abx which were started on admission Has remaine don borad coverage with Primaxin, vanc which has since been discontinued urine catheter removed, check UA and urine cx - UTI may explain increased leukocytosis. PICC line placement planned for tomorrow to enable starting chemotherapy. Start FLuconazole 200mg po daily for significant oropharyngeal candidiasis Attestations Medical Necessity Statement*: evaluation of persisting leukocytsosis, PICC line placement , likely starting chemotherapy inpatient Coding Level of Care Code Acute [employer]her [employer] for [facility] Diagnoses Spontaneous bacterial peritonitis K65.2 Sepsis A41.9 Severe sepsis shock status: with septic shock Abdominal carcinomatosis C76.2 COVID U07.1 Acute kidney injury N17.9
[2021-11-15] MEDS: amitriptyline 25 mg Tablet PO (21:03)
[2021-11-15] MEDS: pantoprazole 40 mg SDV IVP (21:04)
[2021-11-15] MEDS: nystatin 100,000 unit/mL UDC 5 mL 500000 UNIT PO (22:11)
[2021-11-16] VITALS (12 sets, daily range): BP systolic 105–117; BP diastolic 63–74; PULSE 93–100; RESP 16–18; TEMP 36.5–36.8; O2SAT 90–94
[2021-11-16 05:29] LABS: Basophils % 0.2 %; Eosinophils # 0.3 10^3/uL (0.0-0.8); Hematocrit 27.5 % (37.0-47.0); Hemoglobin 8.1 g/dL (11.5-15.3); Lymphocytes # 1.5 10^3/uL (0.8-4.8); Lymphocytes % 5.8 %; Mean Corpuscular HGB Conc 29.5 g/dL (30.0-36.0); Mean Corpuscular Hemoglobin 24.8 pg (28.0-34.0); Mean Corpuscular Volume 84.1 fl (81-99); Mean Platelet Volume 10.4 fL (7.4-10.4); Monocytes % 3.9 %; Neutrophils # 21.35 10^3/uL (1.8-7.7); Neutrophils % 84.8 %; Nucleated Red Blood Cells # 0.1 /100WBC; Nucleated Red Blood Cells % 0.3 %; Platelet Count 841 10^3/cmm (130-400); Red Blood Count 3.27 10^6/uL (4.1-5.3); Red Cell Distribution Width 18.2 % (12.1-15.1); White Blood Count 25.2 10^3/uL (4.0-10.0)
[2021-11-16] MEDS: oxyCODONE-APAP 5-325 mg Tablet 1 TAB PO ×2 (06:28→16:36)
[2021-11-16] MEDS: ergocalciferol (vitamin D2) 50,000 Unit Capsule 50000 UNIT PO (06:28)
--- NOTE | 2021-11-16 08:38 | PC.NURSE ---
Notified Dr Garnica that patient is complaining of pain. she has Percocet ordered Q6H but says she is still hurting
[2021-11-16] MEDS: allopurinol 100 mg Tablet PO (08:40)
[2021-11-16] MEDS: fluconazole 100 mg Tablet 200 MG PO (08:40)
[2021-11-16] MEDS: fluoxetine 20 mg Capsule 40 MG PO (08:40)
[2021-11-16] MEDS: docusate sodium 100 mg Capsule PO ×2 (08:40→17:26)
[2021-11-16] MEDS: ascorbic acid 500 mg Tablet PO ×2 (08:41→17:26)
[2021-11-16] MEDS: polyethylene glycol 3350 Pkt 17 gm PO ×2 (08:41→17:27)
[2021-11-16] MEDS: nystatin 100,000 unit/mL UDC 5 mL 500000 UNIT PO ×4 (08:41→21:20)
[2021-11-16] MEDS: heparin 5,000 unit/mL INJ 1 mL 5000 UNIT SUBCUT ×2 (08:41→21:20)
--- NOTE | 2021-11-16 09:41 | PC.NURSE ---
rcvd verbal order from Dr Garnica for Morphine. specifications writer put order in.
[2021-11-16] MEDS: morphine 4 mg/mL SDV 1 mL 2 MG IVP (10:12)
[2021-11-16] MEDS: zinc gluconate 50 mg Tablet PO (10:12)
[2021-11-16] MEDS: budesonide 0.5 mg/2 mL Neb INHALATION ×2 (10:13→21:57)
[2021-11-16 13:09] LABS: Alanine Aminotransferase 16 U/L (0-33); Albumin Level 2.7 g/dL (3.5-5.2); Alkaline Phosphatase 222 IU/L (35-105); Anion Gap 13.4 (5-19); Aspartate Amino Transferase 34 U/L (0-32); Blood Urea Nitrogen 18 mg/dL (6-20); Calcium 8.4 mg/dL (8.5-10.5); Carbon Dioxide 26 mmol/L (22-29); Chloride 99 mmol/L (98-107); Globulin 3.8 g/dL (1.3-4.6); Glucose 108 mg/dL (65-115); Osmolality Calculated 280 mOsm/kg (285-295); Potassium 4.4 mmol/L (3.5-5.1); Sodium 134 mmol/L (136-145); Total Bilirubin 0.6 mg/dL (0.15-1.2); Total Protein 6.5 g/dL (6.6-8.7)
--- NOTE | 2021-11-16 13:12 | PC.NURSE ---
patient taken to laborer wharf for PICC line via wheelchair
--- NOTE | 2021-11-16 13:24 | XR_ITS ---
WS: [id number] PORTABLE CHEST x 2 HISTORY: Post PICC COMPARISON: 11/07/2021 RIGHT PICC line is been placed. On the initial image obtained at 1:38 PM the PICC line terminates jana p within the RIGHT heart. Recommend retraction 5 cm. RIGHT PICC line has been repositioned. Image obtained at 1:43 PM reveals a PICC line in good position with the tip in the distal SVC. There is extensive bilateral airspace disease with areas of atelectasis and edema. No pneumothorax or complication from the recent PICC line placement. Lung volumes are low. XR/XR chest 1V portable [id number] IMPRESSION: Satisfactory placement of PICC line with the tip terminating in the distal SVC.
--- NOTE | 2021-11-16 14:36 | PC.OT ---
PATIENT RETURNING TO ROOM FOLLOWING PICC LINE PLACEMENT, PER NURSING AND PATIENT SHE IS FATIGUED AND WEAK FOLLOWING PROCEDURE. DUE TO WEAKNESS, PATIENT DECLINED THERAPY TODAY AND PREFERS TO TRY TOMORROW. DECLINED ADL PARTICIPATION.
[2021-11-16 14:50] LABS: Add Urine Microscopic? YES; Bilirubin Urine Neg (Negative); Blood Urine Trace (Negative); Glucose Urine UA Norm (Normal); Ketones Urine 1+ (Negative); Leukocyte Esterase Urine Trace (Negative); Nitrate Urine Negative (Negative); Protein Urine 1+ (Negative); Urine Appearance Clear (CLEAR); Urine Color Yellow (Yellow); Urobilinogen Urine 1 mg/dL (Negative); pH Urine 5 (5-7)
[2021-11-16 14:58] LABS: Add Urine Culture? No; Bacteria Urine 2+ /hpf; Mucus Urine TRACE /hpf; RBC Urine 0-4 /hpf (0-2); Squamous Epithelial Cell Urine 15-25 /hpf (0-5)
--- NOTE | 2021-11-16 18:55 | P.PN_ITS ---
Subjective Subjective: Leukocytosis trending down to 25 today. Afebrile. Hemodynamically stable. Complaining of increased abdominal distention and pain today. Patient is able to ambulate to the bathroom and back. On room air today. PICC line placed. Starting chemo tomorrow. Medications: Reviewed: Yes Medication Review Details: Current Medications Acetaminophen (Acetaminophen 325 Mg Tablet) 650 mg PO Q6H PRN PRN Reason: Mild/Mod Pain Or Temp >/= 101 Albuterol/Ipratropium (Ipratropium-Albuterol 3 Ml Neb) 3 ml INHALATION Q4H.RESPIRATORY [facility] Last Admin: 11/11/21 04:11 Dose: 3 ml Documented by: Allopurinol (Allopurinol 100 Mg Tablet) 100 mg PO DAILY [facility] Last Admin: 11/10/21 09:53 Dose: 100 mg Documented by: Amitriptyline HCl (Amitriptyline 25 Mg Tablet) 25 mg PO BEDTIME [facility] Last Admin: 11/10/21 21:44 Dose: 25 mg Documented by: Ascorbic Acid (Ascorbic Acid 500 Mg Tablet) 500 mg PO BID [facility] Last Admin: 11/10/21 18:23 Dose: 500 mg Documented by: Budesonide (Budesonide 0.5 Mg/2 Ml Neb) 0.5 mg INHALATION BID.RESPIRATORY [facility] Last Admin: 11/10/21 20:20 Dose: Not Given Documented by: Budesonide (Budesonide 0.5 Mg/2 Ml Neb) 0.5 mg INHALATION BID.RESPIRATORY [facility] Last Admin: 11/10/21 20:20 Dose: 0.5 mg Documented by: Dexamethasone (Dexamethasone 10 Mg/Ml Inj) 6 mg IVP Q24H [facility] Last Admin: 11/11/21 05:30 Dose: 6 mg Documented by: Docusate Sodium (Docusate Sodium 100 Mg Capsule) 100 mg PO BID [facility] Last Admin: 11/10/21 18:23 Dose: 100 mg Documented by: Ergocalciferol (Ergocalciferol (Vitamin D2) 50,000 Unit Capsule) 50,000 unit PO Q7D [facility] Last Admin: 11/09/21 10:51 Dose: 50,000 unit Documented by: Furosemide (Furosemide 10 Mg/Ml Sdv 4ml) 40 mg IVP DAILY [facility] Last Admin: 11/10/21 09:53 Dose: 40 mg Documented by: Heparin Sodium (Porcine) (Heparin 5,000 Unit/Ml Inj 1 Ml) 5,000 unit SUBCUT Q12H [facility] Last Admin: 11/10/21 21:42 Dose: 5,000 unit Documented by: Hydromorphone HCl (Hydromorphone 1 Mg/Ml Inj 1 Ml) 0.5 mg IVP Q4H PRN PRN Reason: PAIN Last Admin: 11/10/21 13:41 Dose: 0.5 mg Documented by: Vancomycin/PEG/NADA/Lysine/Water (Vancocin) 1,250 mg in 250 mls @ 250 mls/hr IV Q24H [facility] Last Infusion: 11/11/21 00:39 Dose: Infused Documented by: dexmedeTOMIDine 0.9 % NaCL (Precedex) 400 mcg in 100 mls @ 0 mls/hr IV .Q0M [facility]; Protocol Last Titration: 11/09/21 16:54 Dose: Infused Documented by: Imipenem/Cilastatin Sodium 250 (mg/ Sodium Chloride) 100 mls @ 200 mls/hr IV Q6H [facility]; Protocol Last Infusion: 11/11/21 04:55 Dose: Infused Documented by: Norepinephrine Bitartrate 4 mg (/ Dextrose) 254 mls @ 0 mls/hr IV .Q0M [facility]; Protocol Last Titration: 11/10/21 10:00 Dose: 0 mcg/min, 0 mls/hr Documented by: Naloxone HCl (Naloxone 0.4 Mg/Ml Sdv) 0.1 mg IVP Q2M PRN PRN Reason: OPIATERV Ondansetron HCl (Ondansetron 2 Mg/Ml Sdv 2 Ml) 4 mg IVP Q8H PRN PRN Reason: vomiting, or N/V if npo Last Admin: 11/09/21 17:16 Dose: 4 mg Documented by: Oxycodone/Acetaminophen (Oxycodone-Apap 5-325 Mg Tablet) 1 tab PO Q6H PRN PRN Reason: MODERATE PAIN Last Admin: 11/11/21 04:22 Dose: 1 tab Documented by: Pantoprazole Sodium (Pantoprazole 40 Mg Sdv) 40 mg IVP Q24H [facility] Last Admin: 11/10/21 21:45 Dose: 40 mg Documented by: Zinc Gluconate (Zinc Gluconate 50 Mg Tablet) 50 mg PO DAILY [facility] Last Admin: 11/10/21 09:53 Dose: 50 mg Documented by: Vitals/I&O/Wt Last Vital Signs Temp 98.3 F 11/16/21 16:00 Pulse 98 11/16/21 16:00 Resp 18 11/16/21 16:36 BP 107/68 11/16/21 16:00 Pulse Ox 94 11/16/21 16:36 11/16/21 11/16/21 11/16/21 06:59 14:59 22:59 Intake Total 100 / 1480 680 / 680 700 / 1380 Balance 100 / 1480 680 / 680 700 / 1380 Physical Exam Narrative: GEN: Awake, alert and oriented, no acute distress CVS: S1S2 N RS: CTA B/L Abd: Soft,mildly distended, BS+ 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: no focal neuro deficits Urinary Catheter Management: Anaya Latex: Cath Placed During This Visit: yes, but has since been removed by the nurse Reason for Continuing Indwelling Catheter: Acute Urinary Retention or Obstruction Urinary Catheter Date of Insertion: 11/06/21 Urinary Catheter Time of Insertion: 15:10 Date Urinary Catheter Removed: 11/13/21 Time Urinary Catheter Discontinued: 18:17 Data : 11/16/21 05:12 11/16/21 11:50 Micro: Microbiology 11/16/21 05:08 Blood Culture - Preliminary Blood SPECIMEN COLLECTED 11/16/21 05:12 Blood Culture - Preliminary Blood SPECIMEN COLLECTED 11/05/21 Unknown Gram Stain - Final Peritoneal Fluid Anaerobic Culture - Final Body Fluid Culture - Final A&P Assessment and plan (1) Spontaneous bacterial peritonitis: Status: Acute (2) Sepsis: Resolved septic shock, she weaned off pressor. 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 Starting inpatient chemotherapy tomorrow. PICC line placed today. Patient will likely need recurrent paracentesis for relief of abdominal pain and distention while she remains inpatient. This is expected to hopefully improve as she starts her cancer treatment. Ultrasound-guided paracentesis ordered for tomorrow morning. Status: Acute (4) COVID: Weaned off to room air. Completed course of remdesivir. Dexamethasone. Wean down oxygen support as tolerating. Currently down to room air- intermittent 2 L. Continue heparin VTE prophylaxis. Discontinued baricitinib given concern for peritonitis and improving oxygenation Status: Acute (5) Acute kidney injury: Resolving. Producing urine. Status: Acute Plan Persistent high leukocytosis, however trending down today to 25. Afberile. Infectious w/up thus far with blood cx + Clostridium perfriengens on admission, since negative. Staph epidermidis on 11/10 likely to be contaminant. blood culture repeated this morning to exclude candidemia Paracentesis perfromed twice during admission- cx negative however may be clouded by abx which were started on admission Has remaine don borad coverage with Primaxin, vanc has since been discontinued Positive UA on 11 16, pending urine culture PICC line placed today Started FLuconazole 200mg po daily for significant oropharyngeal candidiasis Attestations Medical Necessity Statement*: PICC line placed today, needs ongoing inpatient admission, starting inpatient chemotherapy tomorrow for ovarian malignancy with diffuse abdominal carcinomatosis. Plan paracentesis tomorrow. Coding Level of Care Code Acute Family Caseworker for [facility] Fwd Diagnoses Spontaneous bacterial peritonitis K65.2 Sepsis A41.9 Severe sepsis shock status: with septic shock Abdominal carcinomatosis C76.2 COVID U07.1 Acute kidney injury N17.9
[2021-11-16] MEDS: pantoprazole 40 mg SDV IVP (21:20)
[2021-11-16] MEDS: amitriptyline 25 mg Tablet PO (21:20)
[2021-11-17] VITALS (13 sets, daily range): BP systolic 102–117; BP diastolic 56–74; PULSE 88–100; RESP 16–18; TEMP 36.4–37.1; O2SAT 90–96
[2021-11-17] MEDS: oxyCODONE-APAP 5-325 mg Tablet 1 TAB PO ×3 (00:17→22:37)
[2021-11-17] MEDS: dexamethasone 10 mg/mL INJ 20 MG IVP ×2 (00:43→07:10)
[2021-11-17 06:22] LABS: Alanine Aminotransferase 17 U/L (0-33); Albumin Level 2.9 g/dL (3.5-5.2); Alkaline Phosphatase 260 IU/L (35-105); Aspartate Amino Transferase 34 U/L (0-32); Blood Urea Nitrogen 18 mg/dL (6-20); Calcium 9.4 mg/dL (8.5-10.5); Carbon Dioxide 23 mmol/L (22-29); Chloride 102 mmol/L (98-107); Globulin 3.7 g/dL (1.3-4.6); Glucose 125 mg/dL (65-115); Osmolality Calculated 281 mOsm/kg (285-295); Sodium 134 mmol/L (136-145); Total Bilirubin 0.5 mg/dL (0.15-1.2); Total Protein 6.6 g/dL (6.6-8.7)
[2021-11-17 06:38] LABS: Anion Gap 14.9 (5-19); Potassium 5.9 mmol/L (3.5-5.1)
--- NOTE | 2021-11-17 07:05 | PM.CONSULT ---
Providers/Reason For Consult Consulting Physician/Specialty*: Medical oncology. Reason for Consult*: Ovarian cancer. Requesting Physician: Lacey Garnica MD Attending Physician: Lacey Garnica MD Primary Care Provider: Deepa Farris MD History of Present Illness History of Present Illness This is a 56-year-old woman with recently diagnosed ovarian cancer. She presented with abdominal distention and postprandial abdominal pain. Her CT abdomen/pelvis on 10/26/2021 showed extensive bulky peritoneal carcinomatosis together with a cystic lesion in the midline pelvis measuring 4.2 x 4.6 cm, felt to be consistent with a cystic ovarian lesion. Also noted was diffuse bulky rectal wall thickening. There was moderate abdominal ascites and small left pleural effusion. CT-guided peritoneal biopsy on 11/04/2021 was consistent with metastatic adenocarcinoma consistent with ovarian primary. It was negative for overexpression of HER-2/rolando. The following day she was admitted to the hospital with nausea/vomiting in association with increasing abdominal distention and abdominal pain. She ultimately was found to have sepsis due to Clostridium perfringens in association with COVID-19 virus infection. She has had a difficult clinical course, which included acute renal failure. However, she is now showing significant improvement, including normalization of her renal function. I had previously conferred with one of the MOBILE EQUIPMENT OPERATOR oncologist in [place], and the recommendation is to proceed now with neoadjuvant chemotherapy. Depending on her response, she will be reevaluated for debulking surgery after 3 cycles of treatment. She underwent placement of PICC line yesterday in preparation for cycle 1 of carboplatin/paclitaxel chemotherapy today. She has been given standard dexamethasone premedication. Medications/Allergies Home Medications Medication Instructions Recorded Confirmed Last Taken Type amitriptyline 25 mg tablet 25 mg PO BEDTIME 03/02/21 11/07/21 11/03/21 History amlodipine 5 mg tablet 5 mg PO DAILY 03/02/21 11/07/21 11/04/21 History fluoxetine 40 mg capsule 40 mg PO DAILY 03/02/21 11/07/21 11/04/21 History lisinopril 20 mg tablet 20 mg PO BID 03/02/21 11/07/21 11/03/21 History uztrmaf-[id number] 250 1 tab PO Q6H PRN 11/03/21 11/07/21 11/02/21 History mg-250 mg-65 mg tablet (Excedrin Migraine) ketoconazole 2 % shampoo 1 applic TOPICAL .2x weekly PRN 11/03/21 11/07/21 Unknown History magnesium 500 mg tablet 15 mg PO DAILY 11/03/21 11/07/21 11/01/21 History apremilast 30 mg tablet (Otezla) 30 mg PO BID 11/07/21 11/07/21 Unknown History Allergies Allergy/AdvReac Type Severity Reaction Status Date / Time No Known Allergies Allergy Verified 11/05/21 16:07 Current Medications Generic Name Dose Route Start Last Admin Trade Name Sanchezq PRN Reason Stop Dose Admin Allopurinol 100 mg 11/10/21 09:00 11/16/21 08:40 Allopurinol 100 Mg Tablet PO 100 mg DAILY [facility] Administration Amitriptyline HCl 25 mg 11/09/21 21:00 11/16/21 21:20 Amitriptyline 25 Mg Tablet PO 25 mg BEDTIME [facility] Administration Ascorbic Acid 500 mg 11/06/21 09:00 11/16/21 17:26 Ascorbic Acid 500 Mg Tablet PO 500 mg BID [facility] Administration Budesonide 0.5 mg 11/07/21 20:00 11/16/21 21:57 Budesonide 0.5 Mg/2 Ml Neb INHALATION 0.5 mg BID.RESPIRATORY [facility] Administration Docusate Sodium 100 mg 11/06/21 09:00 11/16/21 17:26 Docusate Sodium 100 Mg Capsule PO 100 mg BID [facility] Administration Ergocalciferol 50,000 unit 11/09/21 07:15 11/16/21 06:28 Ergocalciferol (Vitamin D2) 50,000 Unit Capsule PO 50,000 unit Q7D [facility] Administration Fluconazole 200 mg 11/16/21 09:00 11/16/21 08:40 Fluconazole 100 Mg Tablet PO 11/26/21 08:59 200 mg DAILY [facility] Administration Fluoxetine HCl 40 mg 11/14/21 09:00 11/16/21 08:40 Fluoxetine 20 Mg Capsule PO 40 mg DAILY [facility] Administration Guaifenesin/Dextromethorphan 5 ml 11/13/21 15:38 11/13/21 16:14 Guaifenesin-Dextromethorphan Udc 10 Ml PO 5 ml Q4H PRN Administration COUGH Heparin Sodium (Porcine) 5,000 unit 11/05/21 21:49 11/16/21 21:20 Heparin 5,000 Unit/Ml Inj 1 Ml SUBCUT 5,000 unit Q12H [facility] Administration Imipenem/Cilastatin Sodium 500 100 mls @ 200 mls/hr 11/14/21 12:30 11/17/21 06:23 mg/ Sodium Chloride IV 200 mls/hr Q6H [facility] Administration Protocol Morphine Sulfate 2 mg 11/16/21 09:40 11/16/21 10:12 Morphine 4 Mg/Ml Sdv 1 Ml IVP 2 mg Q6H PRN Administration SEVERE PAIN Nystatin 500,000 unit 11/15/21 21:25 11/16/21 21:20 Nystatin 100,000 Unit/Ml Udc 5 Ml PO 500,000 unit QID [facility] Administration Ondansetron HCl 4 mg 11/05/21 21:49 11/09/21 17:16 Ondansetron 2 Mg/Ml Sdv 2 Ml IVP 4 mg Q8H PRN Administration vomiting, or N/V if npo Oxycodone/Acetaminophen 1 tab 11/06/21 14:47 11/17/21 00:17 Oxycodone-Apap 5-325 Mg Tablet PO 1 tab Q6H PRN Administration MODERATE PAIN Pantoprazole Sodium 40 mg 11/05/21 21:49 11/16/21 21:20 Pantoprazole 40 Mg Sdv IVP 40 mg Q24H [facility] Administration Polyethylene Glycol 17 gm 11/13/21 11:50 11/16/21 17:27 Polyethylene Glycol 3350 Pkt 17 Gm PO 17 gm BID [facility] Administration Zinc Gluconate 50 mg 11/06/21 09:00 11/16/21 10:12 Zinc Gluconate 50 Mg Tablet PO 50 mg DAILY [facility] Administration Additional Medication Information Her other medical illnesses include Hypertension, migraine headaches, psoriasis, and depression. She is a non-smoker. Family history is significant that her mother age 88 with a suspected MOBILE EQUIPMENT OPERATOR cancer. She had previously been treated for colon cancer. PFSH Acute PFSH: Medical History Anxiety Depression HTN (hypertension) Surgical History History of cholecystectomy No pertinent past surgical history Family History Mother Colon cancer Social History Smoking and tobacco status: never smoked Alcohol intake: never History of recent travel: No Vitals/I&O/Wt Last Vital Signs Temp 97.8 F 11/17/21 04:00 Pulse 94 11/17/21 04:00 Resp 16 11/17/21 04:00 BP 117/74 11/17/21 04:00 Pulse Ox 91 11/17/21 04:00 11/16/21 11/17/21 11/17/21 22:59 06:59 14:59 Intake Total 700 / 1380 100 / 1480 Balance 700 / 1380 100 / 1480 Physical Exam Narrative: She appears somewhat weak generally, but she does not appear to be in acute distress. HEENT remarkable for resolving oral candidiasis. Neck shows no mass or thyromegaly. There is no cervical, clavicular, or axillary lymphadenopathy noted. Lungs show diminished air movement on the left. Heart rhythm is regular. There is no murmur, gallop, or rub noted. Abdomen is moderately distended and tympanic. Liver and spleen are not overtly enlarged. There is no discrete mass palpable. There is no inguinal adenopathy. Extremities show no edema. There are no focal neurologic deficits noted. Urinary Catheter Management: Anaya Latex: Cath Placed During This Visit: yes, but has since been removed by the nurse Reason for Continuing Indwelling Catheter: Acute Urinary Retention or Obstruction Urinary Catheter Date of Insertion: 11/06/21 Urinary Catheter Time of Insertion: 15:10 Date Urinary Catheter Removed: 11/13/21 Time Urinary Catheter Discontinued: 18:17 Data : 11/16/21 05:12 11/17/21 05:27 Micro: Microbiology 11/16/21 05:08 Blood Culture - Preliminary Blood NEGATIVE TO DATE 11/16/21 05:12 Blood Culture - Preliminary Blood NEGATIVE TO DATE A&P Assessment and plan (1) Abdominal carcinomatosis: Status: Acute Plan Patient with CT evidence of peritoneal carcinomatosis and cystic ovarian mass was confirmed on biopsy to have metastatic adenocarcinoma consistent with ovarian primary. Her clinical course has been complicated by acute renal failure in association with sepsis and COVID-19 virus infection, for which she is now recovering. She will proceed now with cycle 1 of carboplatin/paclitaxel chemotherapy. I reviewed anticipated side effects of the treatment which may include nausea/vomiting, alopecia, weakness/fatigue, low blood counts/infection, and peripheral neuropathy, among others. She is aware that in the setting of acute illness, she will be at increased risk for chemotherapy related toxicities, but with ovarian cancer there is a high probability of response to the treatment. Coding Level of Care Code Acute District Wildlife Manager for [facility] Diagnoses Abdominal carcinomatosis C76.2
[2021-11-17] MEDS: zinc gluconate 50 mg Tablet PO (07:44)
[2021-11-17] MEDS: fluoxetine 20 mg Capsule 40 MG PO (07:44)
[2021-11-17] MEDS: nystatin 100,000 unit/mL UDC 5 mL 500000 UNIT PO ×3 (07:44→20:29)
[2021-11-17] MEDS: docusate sodium 100 mg Capsule PO ×2 (07:44→17:56)
[2021-11-17] MEDS: fluconazole 100 mg Tablet 200 MG PO (07:44)
[2021-11-17] MEDS: allopurinol 100 mg Tablet PO (07:44)
[2021-11-17] MEDS: ascorbic acid 500 mg Tablet PO ×2 (07:45→17:56)
[2021-11-17] MEDS: heparin 5,000 unit/mL INJ 1 mL 5000 UNIT SUBCUT (07:46)
--- NOTE | 2021-11-17 08:29 | PC.NURSE ---
ultrasound called and asking when patient had heparin last. health underwriter administered heparin this morning. she said she needs a PT INR for 1300 today and they can try to do paracentesis later today. health underwriter put order in for PT INR
[2021-11-17] MEDS: budesonide 0.5 mg/2 mL Neb INHALATION ×2 (08:30→19:19)
[2021-11-17] MEDS: sodium chloride 0.9% 250 ML 75 ML IV (13:25)
[2021-11-17] MEDS: famotidine 20 mg/2 mL INJ IVP (13:25)
[2021-11-17] MEDS: diphenhydrAMINE 50 mg/mL SDV 1mL 25 MG IV (13:26)
[2021-11-17] MEDS: palonosetron 0.25 mg/5 mL SDV IV (13:29)
[2021-11-17] MEDS: fosaprepitant 150 MG in sodium chloride 0.9% 150 ML 300 MG IV (13:46)
[2021-11-17 14:41] LABS: INR 1.19 (0.8-1.2)
--- NOTE | 2021-11-17 15:51 | PC.NURSE ---
US called and said to hold patient's heparin today and tomorrow morning so they can do paracentesis tomorrow. health underwriter put order on hold and notified Dr Garnica.
--- NOTE | 2021-11-17 17:06 | P.PN_ITS ---
Subjective Subjective: Starting chemotherapy today with cycle 1 of carboplatin paclitaxel. This morning a.m. labs with potassium of 5.9, however specimen hemolyzed. We will repeat in the evening. No other acute interim events. Medications: Reviewed: Yes Vitals/I&O/Wt Last Vital Signs Temp 98.7 F 11/17/21 16:00 Pulse 93 11/17/21 16:00 Resp 18 11/17/21 16:00 BP 106/60 11/17/21 16:00 Pulse Ox 90 11/17/21 16:00 11/17/21 11/17/21 11/17/21 06:59 14:59 22:59 Intake Total 100 / 1480 340 / 340 100 / 440 Balance 100 / 1480 340 / 340 100 / 440 Physical Exam Narrative: GEN: Awake, alert and oriented, no acute distress CVS: S1S2 N RS: CTA B/L Abd: Soft, nt/nd , bs+ SPECTACLE TRUER: no focal neuro deficits Urinary Catheter Management: Anaya Latex: Cath Placed During This Visit: yes, but has since been removed by the nurse Reason for Continuing Indwelling Catheter: Acute Urinary Retention or Obstruction Urinary Catheter Date of Insertion: 11/06/21 Urinary Catheter Time of Insertion: 15:10 Date Urinary Catheter Removed: 11/13/21 Time Urinary Catheter Discontinued: 18:17 Data : 11/16/21 05:12 11/17/21 05:27 Micro: Microbiology 11/16/21 05:08 Blood Culture - Preliminary Blood NEGATIVE TO DATE 11/16/21 05:12 Blood Culture - Preliminary Blood NEGATIVE TO DATE A&P Assessment and plan (1) Spontaneous bacterial peritonitis: Status: Acute (2) Sepsis: Resolved septic shock, she weaned off pressor. 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 Starting inpatient chemotherapy today, PICC line placed. Patient will likely need recurrent paracentesis for relief of abdominal pain and distention while she remains inpatient. This is expected to hopefully improve as she starts her cancer treatment. Ultrasound-guided paracentesis tomorrow Status: Acute (4) COVID: Weaned off to room air. Completed course of remdesivir. Dexamethasone. Wean down oxygen support as tolerating. Currently down to room air- in termittent 2 L. Continue heparin VTE prophylaxis. Discontinued baricitinib given concern for peritonitis and improving oxygenation Status: Acute (5) Acute kidney injury: Resolving. Producing urine. Status: Acute Plan Persistent high leukocytosis, however trending down today to 25. Afberile. Infectious w/up thus far with blood cx + Clostridium perfriengens on admission, since negative. Staph epidermidis on 11/10 likely to be contaminant. Paracentesis perfromed twice during admission- cx negative however may be clouded by abx which were started on admission Has remaine don borad coverage with Primaxin, vanc has since been discontinued Positive UA on 11 16, pending urine culture . D/c primaxin as completed d>10 days adequate treatment Change to levofloxacin 750mg daily for possible UTI, cx remains pending PICC line placed 11/16 Continue FLuconazole 200mg po daily for significant oropharyngeal candidiasis Attestations Medical Necessity Statement*: starting cycle 1 chemo today Coding Level of Care Code Acute Project Control Analyst for [facility] Fwd Diagnoses Spontaneous bacterial peritonitis K65.2 Sepsis A41.9 Severe sepsis shock status: with septic shock Abdominal carcinomatosis C76.2 COVID U07.1 Acute kidney injury N17.9
[2021-11-17 18:57] LABS: Basophils % 0.1 %; Hematocrit 26.1 % (37.0-47.0); Hemoglobin 7.2 g/dL (11.5-15.3); Lymphocytes # 0.6 10^3/uL (0.8-4.8); Lymphocytes % 2.5 %; Mean Corpuscular HGB Conc 27.6 g/dL (30.0-36.0); Mean Corpuscular Hemoglobin 24.7 pg (28.0-34.0); Mean Corpuscular Volume 89.4 fl (81-99); Monocytes # 0.1 10^3/uL (0.2-0.9); Monocytes % 0.5 %; Neutrophils # 21.47 10^3/uL (1.8-7.7); Neutrophils % 94.2 %; Nucleated Red Blood Cells % 0.1 %; Platelet Count 704 10^3/cmm (130-400); Red Blood Count 2.92 10^6/uL (4.1-5.3); Red Cell Distribution Width 18.7 % (12.1-15.1); White Blood Count 22.8 10^3/uL (4.0-10.0)
[2021-11-17] MEDS: amitriptyline 25 mg Tablet PO (20:30)
[2021-11-17 21:18] LABS: Alanine Aminotransferase 15 U/L (0-33); Albumin Level 2.7 g/dL (3.5-5.2); Alkaline Phosphatase 181 IU/L (35-105); Aspartate Amino Transferase 37 U/L (0-32); Blood Urea Nitrogen 21 mg/dL (6-20); Calcium 8.8 mg/dL (8.5-10.5); Carbon Dioxide 22 mmol/L (22-29); Chloride 98 mmol/L (98-107); Globulin 3.6 g/dL (1.3-4.6); Glomerular Filtration Rate 127.2 mL/min (90-130); Glucose 164 mg/dL (65-115); Osmolality Calculated 275 mOsm/kg (285-295); Sodium 129 mmol/L (136-145); Total Bilirubin 1.1 mg/dL (0.15-1.2); Total Protein 6.3 g/dL (6.6-8.7)
[2021-11-17 21:20] LABS: Anion Gap 13.7 (5-19); Potassium 4.7 mmol/L (3.5-5.1)
[2021-11-17] MEDS: pantoprazole 40 mg SDV IVP (21:21)
[2021-11-18] VITALS (10 sets, daily range): BP systolic 112–132; BP diastolic 67–74; PULSE 85–98; RESP 16–18; TEMP 36.7–36.9; O2SAT 90–94
[2021-11-18] MEDS: budesonide 0.5 mg/2 mL Neb INHALATION (07:56)
[2021-11-18] MEDS: zinc gluconate 50 mg Tablet PO (08:27)
[2021-11-18] MEDS: nystatin 100,000 unit/mL UDC 5 mL 500000 UNIT PO ×4 (08:28→21:02)
[2021-11-18] MEDS: fluconazole 100 mg Tablet 200 MG PO (08:28)
[2021-11-18] MEDS: docusate sodium 100 mg Capsule PO ×2 (08:28→16:57)
[2021-11-18] MEDS: allopurinol 100 mg Tablet PO (08:28)
[2021-11-18] MEDS: levoFLOXacin 750 mg Tablet PO (08:28)
[2021-11-18] MEDS: ascorbic acid 500 mg Tablet PO ×2 (08:28→16:57)
[2021-11-18] MEDS: fluoxetine 20 mg Capsule 40 MG PO (08:28)
[2021-11-18] MEDS: oxyCODONE-APAP 5-325 mg Tablet 1 TAB PO (10:14)
--- NOTE | 2021-11-18 18:20 | PM.PN ---
Subjective Subjective: Tolerated cycle 1 of chemotherapy well. Was scheduled for paracentesis, however this has been canceled as last time only loculated bloody fluid was encountered. White blood cell count is stable at 22. Medications: Reviewed: Yes Medication Review Details: Her other medical illnesses include Hypertension, migraine headaches, psoriasis, and depression. She is a non-smoker. Family history is significant that her mother age 88 with a suspected PROTECTION OFFICER cancer. She had previously been treated for colon cancer. 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 Starting inpatient chemotherapy today, PICC line placed. Patient will likely need recurrent paracentesis for relief of abdominal pain and distention while she remains inpatient. This is expected to hopefully improve as she starts her cancer treatment. Ultrasound-guided paracentesis tomorrow Status: Acute (4) COVID: Weaned off to room air. Completed course of remdesivir. Dexamethasone. Wean down oxygen support as tolerating. Currently down to room air- intermittent 2 L. Continue heparin VTE prophylaxis. Discontinued baricitinib given concern for peritonitis and improving oxygenation Status: Acute (5) Acute kidney injury: Resolving. Producing urine. Status: Acute Plan Persistent high leukocytosis, however trending down today to 25. Afberile. Infectious w/up thus far with blood cx + Clostridium perfriengens on admission, since negative. Staph epidermidis on 11/10 likely to be contaminant. Paracentesis perfromed twice during admission- cx negative however may be clouded by abx which were started on admission Has remaine don borad coverage with Primaxin, vanc has since been discontinued Positive UA on 11 16, pending urine culture . D/c primaxin as completed d>10 days adequate treatment Change to levofloxacin 750mg daily for possible UTI, cx remains pending PICC line placed 11/16 Continue FLuconazole 200mg po daily for significant oropharyngeal candidiasis Plan for today: Tolerated chemo. Labs in a.m. If leukocytosis remains stable, anticipate discharge in the upcoming 24-48 hours. Attestations Medical Necessity Statement*: labs in am, monitor for any acute toxicities, if remains stable, planned discharge in the upcoming 24-48hrs. Coding Level of Care Code Acute Brusher Operator for [facility] Fwd Diagnoses Spontaneous bacterial peritonitis K65.2 Sepsis A41.9 Severe sepsis shock status: with septic shock Abdominal carcinomatosis C76.2 COVID U07.1 Acute kidney injury N17.9
[2021-11-18] MEDS: pantoprazole 40 mg SDV IVP (21:02)
[2021-11-18] MEDS: amitriptyline 25 mg Tablet PO (21:02)
[2021-11-19] VITALS (9 sets, daily range): BP systolic 101–121; BP diastolic 61–75; PULSE 91–95; RESP 16–18; TEMP 36.4–36.7; O2SAT 93–95
[2021-11-19 06:31] LABS: Basophils % 0.1 %; Hemoglobin 7.4 g/dL (11.5-15.3); Lymphocytes # 0.9 10^3/uL (0.8-4.8); Lymphocytes % 6.5 %; Mean Corpuscular HGB Conc 28.5 g/dL (30.0-36.0); Mean Corpuscular Hemoglobin 24.9 pg (28.0-34.0); Mean Corpuscular Volume 87.5 fl (81-99); Mean Platelet Volume 10.3 fL (7.4-10.4); Monocytes # 0.4 10^3/uL (0.2-0.9); Monocytes % 2.6 %; Neutrophils # 12.51 10^3/uL (1.8-7.7); Neutrophils % 89.6 %; Nucleated Red Blood Cells % 0.2 %; Platelet Count 669 10^3/cmm (130-400); Red Blood Count 2.97 10^6/uL (4.1-5.3)
[2021-11-19 06:51] LABS: Alanine Aminotransferase 41 U/L (0-33); Albumin Level 2.7 g/dL (3.5-5.2); Alkaline Phosphatase 180 IU/L (35-105); Aspartate Amino Transferase 90 U/L (0-32); Blood Urea Nitrogen 25 mg/dL (6-20); Calcium 8.2 mg/dL (8.5-10.5); Carbon Dioxide 25 mmol/L (22-29); Chloride 103 mmol/L (98-107); Creatinine Clr Calc Pharmacy 93.8651; Globulin 3.7 g/dL (1.3-4.6); Glomerular Filtration Rate 86.2 mL/min (90-130); Glucose 92 mg/dL (65-115); Osmolality Calculated 288 mOsm/kg (285-295); Sodium 137 mmol/L (136-145); Total Bilirubin 0.4 mg/dL (0.15-1.2); Total Protein 6.4 g/dL (6.6-8.7)
[2021-11-19] MEDS: budesonide 0.5 mg/2 mL Neb INHALATION (08:21)
[2021-11-19] MEDS: nystatin 100,000 unit/mL UDC 5 mL 500000 UNIT PO (09:13)
[2021-11-19] MEDS: levoFLOXacin 750 mg Tablet PO (09:14)
[2021-11-19] MEDS: fluconazole 100 mg Tablet 200 MG PO (09:14)
[2021-11-19] MEDS: ascorbic acid 500 mg Tablet PO (09:14)
[2021-11-19] MEDS: fluoxetine 20 mg Capsule 40 MG PO (09:14)
[2021-11-19] MEDS: allopurinol 100 mg Tablet PO (09:14)
[2021-11-19] MEDS: docusate sodium 100 mg Capsule PO (09:14)
[2021-11-19] MEDS: heparin 5,000 unit/mL INJ 1 mL 5000 UNIT SUBCUT (09:14)
[2021-11-19] MEDS: zinc gluconate 50 mg Tablet PO (09:14)
[2021-11-19] MEDS: oxyCODONE-APAP 5-325 mg Tablet 1 TAB PO (10:50)
[2021-11-19] MEDS: morphine 4 mg/mL SDV 1 mL 2 MG IVP (10:57)
--- NOTE | 2021-11-19 18:28 | PM.DCS ---
Discharge Providers Date of Admission: 11/05/21 20:28 Date of Discharge: November 19, 2021 Attending Provider at Admission: Don Camacho MD Attending Provider at Discharge: Lacey Garnica MD Primary Care Provider: Deepa Farris MD Diagnoses at Discharge Discharge Diagnosis (1) Spontaneous bacterial peritonitis: Status: Acute (2) Sepsis: Status: Acute Qualifiers: Severe sepsis shock status: with septic shock (3) Abdominal carcinomatosis: Status: Acute (4) COVID: Status: Acute (5) Acute kidney injury: Status: Acute Reason for Visit Reason for Visit: Biopsy yesterday and it is hurting today Hospital Course Hospital Course 56-year-old lady?with recently?found?peritoneal carcinomatosis, 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 ?Also with COVID-19, severe transiently, requiring?up to 5 L of oxygen, but weaned off oxygen now?and improved from that perspective. Received, remdisivir, steroids and few doses of baricitinib. Hospital course marked by persistent leukocytosis, up to 42.5, however repeat infectious w/up without any obvious source of untreated infection except for a +UA. Urine cx with gamma hemolytic strep, likely colonizer. She remained on a prolonged course of primaxin during course of admission, now transitoned to po levaquin, which she can continue for 3 more days. ?No diarrhea to suggest C. difficile.?Had significant oropharyngeal candidiasis which is now improving with po fluconazole. No candidemia on blood cx. Once started to clinically improve from sepsis standpoint, she underwent placement of PICC line and initiation of cycle 1 of chemotherapy on 11/18 which she tolerated well. Eventually will also need a port, but due to recent bacteremia, gen surgery for now?recommending PICC line and then return for?follow-up in office?to make subsequent arrangements for the port.? She is much improved clinically. Currently on rooma air, vitals stable, leukocytsois now trended down to 14 at discharge. She will follow up on Monday with the cancer treatment center for lab draws. Picc line also to be monitored at [facility]. ANtihypertensives discontinued at discharge as patient has been normotensive during course of admission. will continue to monitor BP at home. Patient is no longer on Otezla and this has been discontinued from home medications. She feels well today and eager for discharge Physical Exam Narrative: GEN: Awake, alert and oriented, no acute distress CVS: S1S2 N RS: CTA B/L Abd: Soft, nt/nd , bs+ [employer]: no focal neuro deficits Urinary Catheter Management: Anaya Latex: Cath Placed During This Visit: yes, but has since been removed by the nurse Reason for Continuing Indwelling Catheter: Acute Urinary Retention or Obstruction Urinary Catheter Date of Insertion: 11/06/21 Urinary Catheter Time of Insertion: 15:10 Date Urinary Catheter Removed: 11/13/21 Time Urinary Catheter Discontinued: 18:17 Discharge Data Studies Completed and Pending Completed Studies During Hospitalization Category Date Time Status CT abdomen pelvis wo con [id number] Routine Cat Scan 11/14/21 18:[address] angio chest w abd pel w con Urgent Cat Scan 11/05/21 17:12 Completed CXRP [XR chest 1V portable [id number]] Routine Exams 11/16/21 13:24 Completed CXRP [XR chest 1V portable [id number]] Stat Exams 11/07/21 08:59 Completed XR chest 1V portable [id number] Stat Exams 11/05/21 15:49 [place] [id number] Routine Ultrasound 11/06/21 22:31 [place] [id number] Routine Ultrasound 11/08/21 06:00 Completed US paracentesis abdomen [[place] paracentesis abd w [id number]] Ultrasound 11/12/21 09:00 Completed Routine Pending at discharge Category Date Time Status Blood Culture AM LABS Lab 11/16/21 05:08 Results Mycobacteria, Culture w/Fluor Routine Lab 11/05/21 Results Urine Culture Stat Lab 11/18/21 10:25 Results Radiology Impressions Chest/Abdomen/Pelvis CT 11/05/21 17:12 IMPRESSION: 1. No evidence for pulmonary embolus. 2. No evidence for metastatic disease. 3. Left pleural effusion with left lower lobe atelectasis. 4. Scattered atelectasis and scarring in both lungs. IMPRESSION: 1. Severe peritoneal carcinomatosis in multiple locations within the peritoneal cavity and mesentery. This could be of ovarian or gastrointestinal origin. No definite ovarian mass is visualized. 2. There is soft tissue caking along the sigmoid colon with likely invasion of the colon wall. This is most likely peritoneal carcinomatosis. Primary malignancy of the colon is not excluded. 3. Large amount of ascites which is of fluid density. No evidence is suggests intraperitoneal hemorrhage. COMMENTS: Consistent with the [employer]'s Incidental Findings Committee white paper (J Am Nighat Radiol 2018): Any incidental renal lesion less than 1 cm or classified as too small to characterize, or any incidental cystic renal lesion characterized as simple-appearing, is likely benign. No follow-up imaging is recommended for these lesions per consensus recommendations based on imaging criteria. Venous Duplex 11/06/21 22:31 IMPRESSION: No evidence of deep vein thrombosis. Paracentesis Ultrasound 11/12/21 09:00 IMPRESSION: Uncomplicated paracentesis yielding 1100 ml of peritoneal fluid. Specimen collected for analysis as requested. Abdomen/Pelvis CT 11/14/21 18:11 IMPRESSION: 1. No acute findings. 2. No significant change since 11/04/2021. 3. Peritoneal carcinomatosis. 4. Moderate ascites. 5. Moderate left pleural effusion. Chest X-Ray 11/16/21 13:24 IMPRESSION: Satisfactory placement of PICC line with the tip terminating in the distal SVC. Laboratory Results WBC 14.0 10^3/uL (4.0-10.0) H 11/19/21 05:30 RBC 2.97 10^6/uL (4.1-5.3) L 11/19/21 05:30 Hgb 7.4 g/dL (11.5-15.3) L 11/19/21 05:30 Hct 26.0 % (37.0-47.0) L 11/19/21 05:30 MCV 87.5 fl (81-99) 11/19/21 05:30 MCH 24.9 pg (28.0-34.0) L 11/19/21 05:30 MCHC 28.5 g/dL (30.0-36.0) L 11/19/21 05:30 RDW 18.0 % (12.1-15.1) H 11/19/21 05:30 Plt Count 669 10^3/cmm (130-400) H 11/19/21 05:30 MPV 10.3 fL (7.4-10.4) 11/19/21 05:30 Neut % (Auto) 89.6 % 11/19/21 05:30 Lymph % (Auto) 6.5 % 11/19/21 05:30 [place] % (Auto) 2.6 % 11/19/21 05:30 Eos % (Auto) 0.0 % 11/19/21 05:30 Baso % (Auto) 0.1 % 11/19/21 05:30 Neut # (Auto) 12.51 10^3/uL (1.8-7.7) H 11/19/21 05:30 Lymph # (Auto) 0.9 10^3/uL (0.8-4.8) 11/19/21 05:30 [place] # (Auto) 0.4 10^3/uL (0.2-0.9) 11/19/21 05:30 Eos # (Auto) 0.0 10^3/uL (0.0-0.8) 11/19/21 05:30 Baso # (Auto) 0.0 10^3/uL (0.0-0.1) 11/19/21 05:30 Nucleated RBC % (auto) 0.2 % 11/19/21 05:30 Total Counted 100 (0-100) 11/11/21 04:43 Atypical Lymphs % 1.0 % (0-5) 11/11/21 04:43 Absolute Neutrophils 15.4 10^3/cmm (1.4-6.5) H 11/11/21 04:43 Segmented Neutrophils 77 % 11/11/21 04:43 Abs Segm Neuts (Man) 13.9 10/cmm (1.6-7.1) H 11/11/21 04:43 Band Neutrophils 8.0 % 11/11/21 04:43 Abs Band Neuts (Man) 1.4 10^3/cmm (0.0-1.2) H 11/11/21 04:43 Absolute Lymphocytes 1.8 10^3/cmm (1.2-3.4) 11/11/21 04:43 Lymphocytes (Manual) 9 % 11/11/21 04:43 Monocytes (Manual) 2.0 % 11/11/21 04:43 Absolute Monocytes 0.4 10^3/cmm (0.1-0.6) 11/11/21 04:43 Eosinophils (Manual) 0 % 11/11/21 04:43 Absolute Eosinophils 0.0 10^3/cmm (0.0-0.7) 11/11/21 04:43 Basophils (Manual) 0.0 % 11/11/21 04:43 Absolute Basophils 0.0 10^3/cmm (0.0-0.2) 11/11/21 04:43 Metamyelocytes 2.0 % 11/11/21 04:43 Myelocytes 1.0 % 11/11/21 04:43 Nucleated RBCs 1.0 /100WBC (0-1) 11/11/21 04:43 Nucleated RBCs # 0.0 /100WBC 11/19/21 05:30 Toxic Granulation 1+ H 11/07/21 03:45 Platelet Estimate Normal (Normal) 11/11/21 04:43 Hypochromasia 1+ H 11/11/21 04:43 Poikilocytosis 1+ H 11/11/21 04:43 Anisocytosis 1+ H 11/09/21 03:24 Target Cells 1+ H 11/11/21 04:43 Ovalocytes Trace 11/11/21 04:43 PT 15.50 SECONDS (12.1-14.9) H 11/17/21 13:29 INR 1.19 (0.8-1.2) 11/17/21 13:29 D-Dimer 4.88 ug/mIFEU (0-0.59) H 11/13/21 06:57 Specimen Type Arterial 11/08/21 09:29 Sample Site Radial, right 11/08/21 09:29 ABG pH 7.43 (7.35-7.45) 11/08/21 09:29 ABG pCO2 27.4 mmHg (35-45) L 11/08/21 09:29 ABG pO2 65.7 mmHg (80.0-100.0) L 11/08/21 09:29 ABG HCO3 18.1 mmol/L (22-26) L 11/08/21 09:29 ABG O2 Saturation 95.6 11/08/21 09:29 ABG Base Excess -5.3 mmol/L (-2.0-2.0) L 11/08/21 09:29 James Test Pos 11/08/21 09:29 A-a O2 Gradient 24.0 mmHg (5-10) H 11/08/21 09:29 Hematocrit 29.6 % (37-47) L 11/08/21 09:29 Hgb O2 Saturation 95.0 % (95-100) 11/08/21 09:29 Carboxyhemoglobin 0.7 %THgb (0.4-20.1) 11/08/21 09:29 Methemoglobin < 0.0 % (0.4-1.5) L 11/08/21 09:29 Total Hemoglobin 9.7 g/dL (12-16) L 11/08/21 09:29 Sodium 136.0 mmol/L (131-143) 11/08/21 09:29 Potassium 4.2 mmol/L (3.5-5.0) 11/08/21 09:29 Glucose 130.0 mg/dL (70-115) H 11/08/21 09:29 Ionized Calcium 1.2 mmol/L (1.1-1.4) 11/08/21 09:29 O2 Delivery Device Bipap 11/08/21 09:29 O2 Liters/Min 13.0 % 11/07/21 01:47 FiO2 40.0 % 11/08/21 09:29 Hip Hop [employer] ID Ed 11/08/21 09:29 Sodium 137 mmol/L (136-145) 11/19/21 05:30 Potassium 4.0 mmol/L (3.5-5.1) 11/19/21 05:30 Chloride 103 mmol/L (98-107) 11/19/21 05:30 Carbon Dioxide 25 mmol/L (22-29) 11/19/21 05:30 Anion Gap 13.0 (5-19) 11/19/21 05:30 BUN 25 mg/dL (6-20) H 11/19/21 05:30 Creatinine 0.7 mg/dL (0.5-0.9) 11/19/21 05:30 GFR Calculation 86.2 mL/min (90-130) L 11/19/21 05:30 Glucose 92 mg/dL (65-115) 11/19/21 05:30 Estimat Average Glucose 108 11/05/21 16:34 Hemoglobin A1c 5.4 % (4.0-6.0) 11/05/21 16:34 Calculated Osmolality 288 mOsm/kg (285-295) 11/19/21 05:30 Lactic Acid 4.6 mmol/L (0.5-2.2) H* 11/06/21 07:29 Lactic Acid (Sepsis) 4.1 mmol/L (0.5-2.2) H* 11/06/21 10:29 Lactate 1.1 mmol/L (0.5-2.2) 11/09/21 03:24 Uric Acid 6.6 mg/dL (2.4-5.7) H 11/13/21 06:57 Calcium 8.2 mg/dL (8.5-10.5) L 11/19/21 05:30 Phosphorus 2.4 mg/dL (2.5-4.5) L 11/14/21 06:41 Magnesium 1.9 mg/dL (1.7-2.3) 11/14/21 06:41 Iron 8 ug/dL (37-145) L 11/09/21 03:24 TIBC 107 mcg/dl 11/09/21 03:24 % Saturation 7.4 % (20-50) L 11/09/21 03:24 Unsat Iron Binding 99 ug/dL (112-347) L 11/09/21 03:24 Ferritin 517 ng/mL (15-150) H 11/09/21 03:24 Total Bilirubin 0.4 mg/dL (0.15-1.2) 11/19/21 05:30 AST 90 U/L (0-32) H 11/19/21 05:30 ALT 41 U/L (0-33) H 11/19/21 05:30 Alkaline Phosphatase 180 IU/L (35-105) H 11/19/21 05:30 Creatine Kinase 58 U/L (26-192) 11/05/21 16:34 Troponin T Baseline 7 ng/L (0-10) 11/05/21 23:00 Troponin T 120 Minute 6.00 ng/L (0-10) 11/06/21 01:20 Delta Troponin T Not Reportable 11/06/21 01:20 Troponin T Hi Sens 6Hr 6.42 ng/L (0-10) 11/06/21 06:58 Troponin T Hi Sens 6Hr Delta -0.6 ng/L (0-12) L 11/06/21 06:58 C-Reactive Protein 117.4 mg/L (0.0-4.9) H 11/11/21 04:43 NT-Pro-B Natriuret Pep 32535 pg/mL (0-125) H 11/07/21 16:03 Total Protein 6.4 g/dL (6.6-8.7) L 11/19/21 05:30 Albumin 2.7 g/dL (3.5-5.2) L 11/19/21 05:30 Globulin 3.7 g/dL (1.3-4.6) 11/19/21 05:30 Lipase 8 U/L (13-60) L 11/05/21 16:34 25-OH Vitamin D Total 18 ng/mL (30-100) L 11/09/21 03:24 1,25 Dihydroxy Vit D2 <8 pg/mL 11/08/21 06:55 1,25 Dihydroxy Vit D3 88 pg/mL 11/08/21 06:55 Procalcitonin 5.33 ng/mL (0-0.5) H 11/05/21 16:34 TSH 1.76 uIU/mL (0.27-4.20) 11/05/21 23:00 PTH Intact 68.3 pg/mL (15-65) H 11/09/21 03:24 Calcium (PTH Intact) 9.0 mg/dL (8.5-10.5) 11/09/21 03:24 Urine Color Yellow (Yellow) 11/16/21 14:41 Urine Appearance Clear (CLEAR) 11/16/21 14:41 Urine pH 5 (5-7) 11/16/21 14:41 Ur Specific [place] 1.020 (1.005-1.030) 11/16/21 14:41 Urine Protein 1+ (Negative) H 11/16/21 14:41 Urine Glucose (UA) Norm (Normal) 11/16/21 14:41 Urine Ketones 1+ (Negative) H 11/16/21 14:41 Urine Blood Trace (Negative) H 11/16/21 14:41 Urine Nitrate Negative (Negative) 11/16/21 14:41 Urine Bilirubin Neg (Negative) 11/16/21 14:41 Urine Urobilinogen 1 mg/dL (Negative) H 11/16/21 14:41 Ur Leukocyte Esterase Trace (Negative) H 11/16/21 14:41 Urine RBC 0-4 /hpf (0-2) H 11/16/21 14:41 Urine WBC 5-10 /hpf (0-5) H 11/16/21 14:41 Ur Squamous Epith Cells 15-25 /hpf (0-5) H 11/16/21 14:41 Amorphous Sediment Not Reportable 11/16/21 14:41 Urine Bacteria 2+ /hpf (NONE) H 11/16/21 14:41 Hyaline Casts 5-10 /lpf H 11/06/21 06:03 Coarse Granular Casts 0-4 /lpf H 11/06/21 06:03 Urine Mucus Trace /hpf 11/16/21 14:41 Ur Random Sodium 46 mmol/L 11/09/21 16:59 Ur Random Potassium 37 mmol/L 11/09/21 16:59 Ur Random Chloride 52 mmol/L 11/09/21 16:59 Urine Creatinine 68 mg/dL (28-217) 11/09/21 03:30 Fluid Color Red 11/05/21 Unknown Fluid Appearance Cloudy 11/05/21 Unknown Fluid Specific Grav 1.015 11/05/21 Unknown Fluid pH 8.0 11/05/21 Unknown Fluid WBC 663 /uL 11/05/21 Unknown Fluid RBC 54.000 10^3/uL 11/05/21 Unknown Fld Polynuclear WBCs # 0.643 11/05/21 Unknown Fld Polynuclear WBCs % 97.000 % 11/05/21 Unknown Fl Mononucl WBCs #(Auto) 0.020 11/05/21 Unknown Fl Mononuclear % Auto 3.000 % 11/05/21 Unknown Fluid Glucose 3.0 mg/dL 11/05/21 Unknown Fluid Total Protein 4.9 g/dL 11/05/21 Unknown Fluid Albumin 2.8 g/dL 11/05/21 Unknown Fluid LDH TNP 11/05/21 Unknown Fluid Amylase TNP 11/05/21 Unknown Fluid Alk Phosphatase 29 IU/L 11/05/21 Unknown Fluid Cholesterol 26 mg/dL (0-200) 11/05/21 Unknown Fluid Triglycerides 36 mg/dL (0-150) 11/05/21 Unknown Fluid Uric Acid 9 mg/dL 11/05/21 Unknown Peritoneal Color Cara (Pale Yellow) 11/12/21 08:30 Peritoneal Appearance Cloudy (Clear) 11/12/21 08:30 Peritoneal WBC 175 /uL 11/12/21 08:30 Peritoneal RBC 34 10^3/uL 11/12/21 08:30 Periton Mononu # Auto 0.016 10^3/uL 11/12/21 08:30 Mononuclear WBCs % 9.200 % 11/12/21 08:30 Polynuclear WBCs % 90.800 % 11/12/21 08:30 Perit Polynuc WBCs # 0.159 10^3/uL 11/12/21 08:30 Peritoneal Diff Commnt Yes 11/12/21 08:30 Vancomycin Trough 17.0 ug/mL (10-15) H 11/07/21 21:50 Random Vancomycin < 4.0 ug/mL (20.0-40.0) L 11/14/21 06:41 Serum Ketones Negative (Negative) 11/05/21 16:34 Coronavirus 229E (PCR) Not detected (NOT DETECT) 11/05/21 17:41 Hepatitis C Antibody Non-reactive (Nonreactive) 11/07/21 21:56 SARS-CoV-2 (PCR) Detected (NOT DETECT) A 11/05/21 17:41 Vitals Last Vital Signs Temp 97.6 F 11/19/21 16:15 Pulse 95 11/19/21 16:15 Resp 18 11/19/21 16:15 BP 101/61 11/19/21 16:15 Pulse Ox 93 11/19/21 16:15 Discharge Plan Discharge Patient Disposition: Home Condition: Stable Prescriptions: New fluconazole 100 mg Tablet 200 mg PO DAILY 7 Days Qty: 7 0RF allopurinol 100 mg Tablet 100 mg PO DAILY 30 Days Qty: 30 0RF Vitamin D2 1,250 mcg (50,000 unit) Capsule 50,000 unit PO Q7D 30 Days 0RF levofloxacin 750 mg Tablet 750 mg PO DAILY 3 Days Qty: 3 0RF Continued amitriptyline 25 mg tablet 25 mg PO BEDTIME 0RF fluoxetine 40 mg capsule 40 mg PO DAILY 0RF ketoconazole 2 % shampoo 1 applic topical .2x weekly PRN (Reason: HAIR) 0RF Rx Instructions: let sit 5 min before rinsing magnesium 500 mg Tablet 15 mg PO DAILY 0RF Discontinued lisinopril 20 mg tablet 20 mg PO BID 0RF amlodipine 5 mg tablet 5 mg PO DAILY 0RF Excedrin Migraine 250-250-65 mg Tablet 1 tab PO Q6H PRN (Reason: Migraine Headache) 0RF Otezla 30 mg tablet 30 mg PO BID 0RF Discharge Orders: Discharge Order (Routine); Ordered 11/19/21 Ordered By: Lacey Garnica Other Ambulatory Orders: DME: Shiv (Order) Location: None Selected Ordered By: Lacey Garnica Referrals: Deepa Farris MD [Primary Care Provider] - 4-7 days ([facility] will call you to schedule your follow up appointment.) Tristan Amor MD [Hospitalist] - (Please call [facility] at to schedule your appointment with Dr. Amor.) Discharge Diet: Advance as tolerated Discharge Activity: Increase activity as tolerated Patient Instructions: Allopurinol (By mouth), Fluconazole (By mouth), Levofloxacin (By mouth) (Levaquin, Levaquin Leva-lisa), Calcium/Vitamin D Supplement (By mouth), Abdominal Pain (ED), Opioid Safety Activity Restrictions/Additional Instructions: Please come back if you have any worsening abdominal pain, fever or chills, nausea or vomiting, diarrhea, blood in the stool, inability hold down liquid or solids, or any new concerning complaints. Please come to the Cancer treatment center on Monday to get your post chemo bloodwork done. Discharge Attestations Time Spent in Discharge Care*: greater than 30 min Quality Metrics Clinical Quality Measures [ No reported AMI, CVA or VTE this stay] Coding Level of Care Code Acute Chg FW DC note Diagnoses Spontaneous bacterial peritonitis K65.2 Sepsis A41.9 Severe sepsis shock status: with septic shock Abdominal carcinomatosis C76.2 COVID U07.1 Acute kidney injury N17.9
== END 2021-11-19 16:00 | disposition home or self-care (01) | DRG 871 ==
LOC: ER 21:00 → ER IP 11-06 06:50 → ICU 11-06 14:55 → MEDSURG 11-12 15:21
PROVIDERS: Family Medicine; Internal Medicine; Internal Medicine Nephrology; Admitting Provider Family Medicine; Emergency Provider Emergency Medicine; PCP Internal Medicine; Visit Provider Student in an Organized Health Care Education/Training Program
DX: A41.9 Sepsis, unspecified organism (principal); R65.21 Severe sepsis with septic shock; U07.1 COVID-19; J12.82 Pneumonia due to coronavirus disease 2019; N17.0 Acute kidney failure with tubular necrosis; K65.2 Spontaneous bacterial peritonitis; C78.6 Secondary malignant neoplasm of retroperitoneum and peritoneum; C56.9 Malignant neoplasm of unspecified ovary; B37.0 Candidal stomatitis; E87.4 Mixed disorder of acid-base balance; R18.8 Other ascites; F41.9 Anxiety disorder, unspecified; F32.A Depression, unspecified; I10 Essential (primary) hypertension; K21.9 Gastro-esophageal reflux disease without esophagitis; B96.7 Clostridium perfringens [C. perfringens] as the cause of diseases classified elsewhere; Z80.49 Family history of malignant neoplasm of other genital organs; L40.9 Psoriasis, unspecified; I95.9 Hypotension, unspecified
CPT/HCPCS: 36415; 36569; 36600; 49083; 51702; 71045; 71275; 74176; 74177; 80048; 80051; 80053; 80202; 80500; 81001; 82009; 82042; 82306; 82310; 82330; 82436; 82465; 82550; 82570; 82652; 82728; 82803; 82805; 82945; 83036; 83540; 83550; 83605; 83690; 83735; 83880; 83970; 83986; 84075; 84100; 84133; 84145; 84157; 84300; 84315; 84443; 84478; 84484; 84550; 84560; 85007; 85025; 85378; 85610; 86140; 86403; 86803; 87015; 87040; 87070; 87075; 87077; 87086; 87116; 87150; 87186; 87205; 87206; 87493; 87635; 87641; 87801; 89050; 93005; 93970; 94640; 94660; 94664; 96365; 96366; 96367; 96372; 96375; 97110; 97116; 97163; 97165; 97530; 97535; 99285; C1751; C9113; J0692; J0743; J1100; J1170; J1200; J1453; J1644; J1940; J2060; J2270; J2405; J2469; J3370; J3480; J3490; J3535; J7030; J7040; J7050; J7626; J9045; J9267; P9041; P9047; Q3014; Q9967

== ENCOUNTER 2021-11-22 10:15 | Outpatient (CLI) | payer OTHER, SELFPAY ==
[2021-11-22] VITALS (10 sets, daily range): BP systolic 100–111; BP diastolic 64–73; PULSE 83–92; RESP 16; TEMP 36.3–36.7; O2SAT 95–99
[2021-11-22 10:38] LABS: Basophils % 0.8 %; Eosinophils # 0.1 10^3/uL (0.0-0.8); Eosinophils % 1.5 %; Lymphocytes # 0.4 10^3/uL (0.8-4.8); Lymphocytes % 8.3 %; Mean Corpuscular HGB Conc 29.2 g/dL (30.0-36.0); Mean Corpuscular Hemoglobin 24.5 pg (28.0-34.0); Mean Corpuscular Volume 83.8 fl (81-99); Mean Platelet Volume 9.8 fL (7.4-10.4); Monocytes # 0.1 10^3/uL (0.2-0.9); Monocytes % 1.3 %; Neutrophils % 86.8 %; Nucleated Red Blood Cells % 0 %; Platelet Count 323 10^3/cmm (130-400); Red Blood Count 2.41 10^6/uL (4.1-5.3); Red Cell Distribution Width 17.5 % (12.1-15.1); White Blood Count 5.2 10^3/uL (4.0-10.0)
[2021-11-22 10:40] LABS: Hematocrit 20.2 % (37.0-47.0); Hemoglobin 5.9 g/dL (11.5-15.3)
[2021-11-22 11:18] LABS: Alanine Aminotransferase 19 U/L (0-33); Albumin Level 2.7 g/dL (3.5-5.2); Alkaline Phosphatase 120 IU/L (35-105); Aspartate Amino Transferase 33 U/L (0-32); Blood Urea Nitrogen 11 mg/dL (6-20); Calcium 8.8 mg/dL (8.5-10.5); Carbon Dioxide 24 mmol/L (22-29); Chloride 94 mmol/L (98-107); Globulin 3.4 g/dL (1.3-4.6); Glucose 125 mg/dL (65-115); Osmolality Calculated 267 mOsm/kg (285-295); Sodium 128 mmol/L (136-145); Total Bilirubin 0.4 mg/dL (0.15-1.2); Total Protein 6.1 g/dL (6.6-8.7)
[2021-11-22 11:38] LABS: Iron 52 ug/dL (37-145); Percent Saturation 27.5 % (20-50); Total Iron Binding Capacity 189 mcg/dl; Unsaturated Iron Binding 137 ug/dL (112-347)
[2021-11-22] MEDS: acetaminophen 325 mg Tablet 650 MG PO (12:48)
[2021-11-22] MEDS: diphenhydrAMINE 25 mg Capsule PO (12:48)
[2021-11-22] MEDS: sodium chloride 0.9% 250 ML 999 ML IV (12:52)
[2021-11-22] MEDS: FUROsemide 10 mg/mL SDV 2mL 20 MG IV (14:43)
--- NOTE | 2021-11-23 10:36 | ONC FU_ITS ---
Dr. Amor Patient Follow-Up Note Patient: Genny Diaz Unit #: [id number]: 1965 Dicatated By: Tristan Amor M.D.Date of Visit:Nov 22, 2021 Onc Med Follow-up/Prog Note Chief Complaint: Ovarian cancer. History of Present Illness: This is a 56-year-old woman with advanced ovarian carcinoma, presenting with CT evidence of peritoneal carcinomatosis. She had presented to Dr. Farris with abdominal swelling and postprandial abdominal discomfort. An abdominal ultrasound on 10/25/2021 showed hepatomegaly with coarsened echogenicity. A nodular area of differential echogenicity was noted in the left hepatic lobe measuring 4.3 x 5.4 cm. There was no hydronephrosis noted. There was mild ascites estimated at 1300 mL. Pelvic ultrasound showed a cystic lesion in the right ovary measuring 5.0 x 4.0 x 3.7 cm and containing internal debris. The left ovary was not well visualized. A small amount of free fluid was noted in the cul-de-sac. Further evaluation with CT of the abdomen/pelvis on 10/26/2021 showed extensive bulky peritoneal carcinomatosis compatible with metastatic disease involving the ventral abdominal peritoneum and pelvis. A prominent metastatic implant was noted in the left upper quadrant measuring 4.7 x 3.1 cm with an additional notable metastatic implant in the left lower quadrant measuring 3.8 x 4.7 cm. A cystic lesion in the midline pelvis measuring 4.2 x 4.6 cm with eccentric mural nodularity was felt to likely represent the a cystic ovarian lesion seen on the ultrasound. There was diffuse bulky rectal wall thickening possibly representing primary neoplasm versus metastatic disease. There was mild to moderate abdominal ascites and there was a small left pleural effusion. There was diffuse fatty infiltration of the liver with no evidence for focal liver lesions. She underwent CT directed biopsy of the omental mass on 11/04/2021. Pathology ultimately came back showing metastatic adenocarcinoma consistent with ovarian primary, most suggestive of serous cell carcinoma. The tumor was strongly positive for CA-125 and for Sammy-EP4. ER was positive at 100%, but NH was negative and the tumor was also negative for overexpression of HER-2/rolando. However, in the meantime, the day following the biopsy she was admitted to the hospital with nausea/vomiting in association with worsening abdominal pain. She had clinical evidence of septic shock, and her blood cultures subsequently grew Clostridium perfringens. She also was found to have COVID-19 virus infection. She had a complicated clinical course which included acute renal failure and acute respiratory failure, but with antibiotic therapy and supportive treatment measures she did show gradual improvement, including complete recovery of her renal function. During the hospitalization she underwent paracentesis on several occasions, and her peritoneal fluid cytology was positive for metastatic adenocarcinoma consistent with ovarian primary. Her initial CT scans also had shown left pleural effusion with left lower lobe atelectasis. She did not have any pleural fluid sampling. I had seen for inpatient consultation, and I had also conferred with one of the EAR NOSE AND THROAT SPECIALIST oncologist in [place]. The recommendation was to proceed with neoadjuvant chemotherapy and to reassess for debulking surgery after 3 cycles. On 11/17/2021 she began cycle 1 of carboplatin/paclitaxel administered through a PICC line in the right arm. She tolerated that treatment without acute toxicity. She was able to be discharged home on 11/19/2021. Her other medical illnesses include hypertension, migraine headaches, psoriasis, and depression. Prior surgeries have been limited to cholecystectomy and tubal ligation. She is a non-smoker. Family history is significant in that her mother had been treated for colon cancer, but she apparently had a suspected EAR NOSE AND THROAT SPECIALIST malignancy at the time of her at age 87. She is seen for a follow-up visit. She has been feeling very weak and tired since discharge from the hospital. She has very limited activity. ECOG score is 3. She does not have much appetite, but she is eating a little. She has not had fever or night sweats. She had oral candidiasis in the hospital, but that has improved on treatment with fluconazole. She has some shortness of breath, but she says her breathing is okay. She does not have cough and she has not been having chest pain. She currently is not having nausea or acid reflux. Her bowel and bladder function have been okay. She does have some abdominal discomfort, and she has been having pain in the lower back. She is getting some relief with oxycodone/APAP, but it lasts only 2 to 3 hours. She has not had numbness/paresthesia or other neuropathy symptoms. Medications: Amitriptyline HCl 1 Tablet (of 25 mg) Oral at bedtime, amLODIPine Besylate 1 Tablet (of 5 mg) Oral daily, FLUoxetine HCl 1 Capsule (of 40 mg) Oral daily, Lisinopril-hydroCHLOROthiazide 1 Tablet (of 20-12.5 mg) Oral b.i.d., Magnesium 1 Tablet (of 500 mg) Oral at bedtime Allergies: No Known Allergies. Vital Signs: Blood pressure 103/66, pulse 92, respirations 20, temp 97.3 degrees, oxygen saturation 97%. Physical Examination: Constitutional - She appears generally weak, Eyes - Sclerae nonicteric. Conjunctivae clear, ENMT - No lesions noted in the oral cavity, Hematologic/Lymphatic - No cervical, clavicular, or axillary adenopathy, Respiratory - Lungs sound clear but with diminished air movement on the left, Cardiovascular - Heart rhythm is regular. There is a II/ systolic murmur. There is no gallop or rub noted, Abdomen - Moderately distended and somewhat firm. Liver and spleen do not appear enlarged. There is no abdominal mass noted. She does appear to have some ascites. There is no inguinal adenopathy, Extremities - Mild lower extremity edema, Neurologic - No focal neurologic deficits noted. Lab/Imaging: Blood cellCBC shows hemoglobin 5.9 g, count 5200, and platelet count 323,000. Comprehensive metabolic profile shows normal renal function with BUN 11 and creatinine 0.6 mg/dL. The bilirubin is normal at 0.4 mg/dL. SGPT is normal at 19 U/L. The SGOT and the alkaline phosphatase are both slightly elevated. Albumin is low 2.7 g/dL. Problem List: 1. 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 2. Hypertension. 3. History of chronic migraine. 4. Psoriasis. 5. Depression. Problems Addressed with this Encounter and Plan: Patient with metastatic adenocarcinoma consistent with ovarian primary, most suggestive of serous cell carcinoma. She had presented with CT evidence of extensive peritoneal carcinomatosis. The diagnosis was confirmed by CT directed biopsy of omental mass. She had positive peritoneal fluid cytology. There was also associated left pleural effusion, but she had no pleural fluid sampling. As such, her disease is stage at least IIIC, but likely stage ELAN. Her clinical course was complicated by septic shock due to Clostridium perfringens and at the same time she also had COVID-19 virus infection. She developed acute renal failure and acute respiratory failure, but on antibiotic therapy she did show gradual recovery, including normalization of her renal function. On 11/17/2021 she began cycle 1 of neoadjuvant chemotherapy with carboplatin/paclitaxel administered through a PICC line in the right arm. She tolerated the treatment without acute toxicity. At this point she continues to have very poor performance status. Her laboratory studies show severe anemia, hemoglobin 5.9 g. Her other blood counts are adequate, and her renal function remains normal. She will be transfused 2 units of packed red blood cells today. She will return on for a repeat CBC and basic metabolic profile, and she will be given further PRBC transfusion as indicated. She will be scheduled for a follow-up visit in 1 week. Signed By: Tristan Amor M.D. <<Signature on File>>
== END 2021-11-22 10:16 | disposition home or self-care (01) ==
LOC: ONCMED 10:18
PROVIDERS: PCP Internal Medicine; Visit Provider Internal Medicine Medical Oncology
DX: C56.1 Malignant neoplasm of right ovary (principal); C78.6 Secondary malignant neoplasm of retroperitoneum and peritoneum; J90 Pleural effusion, not elsewhere classified; I10 Essential (primary) hypertension; L40.9 Psoriasis, unspecified; F32.9 Major depressive disorder, single episode, unspecified; Z86.69 Personal history of other diseases of the nervous system and sense organs; Z86.16 Personal history of COVID-19; Z86.19 Personal history of other infectious and parasitic diseases; Z79.899 Other long term (current) drug therapy
CPT/HCPCS: 36430; 36592; 80053; 83540; 83550; 85025; 86850; 86900; 86920; 99215; J1940; J7050; P9016; P9051

== ENCOUNTER 2021-11-29 06:38 | Outpatient (RCR) | payer OTHER, SELFPAY ==
[2021-11-25 11:04] LABS: Basophils % 0.3 %; Eosinophils % 0.9 %; Hematocrit 24.8 % (37.0-47.0); Hemoglobin 7.8 g/dL (11.5-15.3); Lymphocytes # 0.4 10^3/uL (0.8-4.8); Lymphocytes % 11.2 %; Mean Corpuscular HGB Conc 31.5 g/dL (30.0-36.0); Mean Corpuscular Hemoglobin 26.4 pg (28.0-34.0); Mean Corpuscular Volume 84.1 fl (81-99); Monocytes # 0.2 10^3/uL (0.2-0.9); Monocytes % 7.3 %; Neutrophils # 2.63 10^3/uL (1.8-7.7); Neutrophils % 79.4 %; Nucleated Red Blood Cells % 0 %; Platelet Count 170 10^3/cmm (130-400); Red Blood Count 2.95 10^6/uL (4.1-5.3); Red Cell Distribution Width 17.7 % (12.1-15.1); White Blood Count 3.3 10^3/uL (4.0-10.0)
[2021-11-25 11:24] LABS: Anion Gap 13.5 (5-19); Blood Urea Nitrogen 8 mg/dL (6-20); Calcium 9.1 mg/dL (8.5-10.5); Carbon Dioxide 27 mmol/L (22-29); Chloride 93 mmol/L (98-107); Glucose 121 mg/dL (65-115); Osmolality Calculated 270 mOsm/kg (285-295); Potassium 3.5 mmol/L (3.5-5.1); Sodium 130 mmol/L (136-145)
[2021-11-26] VITALS (10 sets, daily range): BP systolic 109–118; BP diastolic 63–68; PULSE 83–91; RESP 18; TEMP 36.6–37.1; O2SAT 94–98
[2021-11-26] MEDS: sodium chloride 0.9% 250 ML 999 ML IV (08:30)
[2021-11-26] MEDS: acetaminophen 325 mg Tablet 650 MG PO (08:30)
[2021-11-26] MEDS: diphenhydrAMINE 25 mg Capsule PO (08:30)
[2021-11-26] MEDS: FUROsemide 10 mg/mL SDV 2mL 20 MG IV (10:30)
[2021-11-29 13:05] LABS: Basophils % 0.6 %; Eosinophils % 1.3 %; Hematocrit 28.8 % (37.0-47.0); Lymphocytes # 0.6 10^3/uL (0.8-4.8); Lymphocytes % 19.4 %; Mean Corpuscular HGB Conc 31.3 g/dL (30.0-36.0); Mean Corpuscular Hemoglobin 26.8 pg (28.0-34.0); Mean Corpuscular Volume 85.7 fl (81-99); Mean Platelet Volume 9.9 fL (7.4-10.4); Monocytes # 0.4 10^3/uL (0.2-0.9); Monocytes % 12.3 %; Neutrophils # 2.04 10^3/uL (1.8-7.7); Neutrophils % 65.8 %; Nucleated Red Blood Cells % 0 %; Platelet Count 121 10^3/cmm (130-400); Red Blood Count 3.36 10^6/uL (4.1-5.3); Red Cell Distribution Width 18.9 % (12.1-15.1); White Blood Count 3.1 10^3/uL (4.0-10.0)
[2021-11-29 13:26] LABS: Alanine Aminotransferase 21 U/L (0-33); Albumin Level 2.9 g/dL (3.5-5.2); Alkaline Phosphatase 170 IU/L (35-105); Anion Gap 13.5 (5-19); Aspartate Amino Transferase 34 U/L (0-32); Blood Urea Nitrogen 8 mg/dL (6-20); Calcium 8.8 mg/dL (8.5-10.5); Carbon Dioxide 28 mmol/L (22-29); Chloride 94 mmol/L (98-107); Globulin 4.1 g/dL (1.3-4.6); Glomerular Filtration Rate 164.5 mL/min (90-130); Glucose 84 mg/dL (65-115); Osmolality Calculated 272 mOsm/kg (285-295); Potassium 3.5 mmol/L (3.5-5.1); Sodium 132 mmol/L (136-145); Total Bilirubin 0.6 mg/dL (0.15-1.2)
--- NOTE | 2021-11-29 16:09 | ONC FU_ITS ---
Eulalia Cam Progress Note Patient: Genny Diaz Unit #: [id number]: 1965 Dicatated By: Eulalia Cam N.P.Date of Visit:Nov 29, 2021 Onc MED Follow-up/Prog Note Chief Complaint: Ovarian cancer. History of Present Illness: This is a 56-year-old woman with advanced ovarian carcinoma, presenting with CT evidence of peritoneal carcinomatosis. She had presented to Dr. Farris with abdominal swelling and postprandial abdominal discomfort. An abdominal ultrasound on 10/25/2021 showed hepatomegaly with coarsened echogenicity. A nodular area of differential echogenicity was noted in the left hepatic lobe measuring 4.3 x 5.4 cm. There was no hydronephrosis noted. There was mild ascites estimated at 1300 mL. Pelvic ultrasound showed a cystic lesion in the right ovary measuring 5.0 x 4.0 x 3.7 cm and containing internal debris. The left ovary was not well visualized. A small amount of free fluid was noted in the cul-de-sac. Further evaluation with CT of the abdomen/pelvis on 10/26/2021 showed extensive bulky peritoneal carcinomatosis compatible with metastatic disease involving the ventral abdominal peritoneum and pelvis. A prominent metastatic implant was noted in the left upper quadrant measuring 4.7 x 3.1 cm with an additional notable metastatic implant in the left lower quadrant measuring 3.8 x 4.7 cm. A cystic lesion in the midline pelvis measuring 4.2 x 4.6 cm with eccentric mural nodularity was felt to likely represent the a cystic ovarian lesion seen on the ultrasound. There was diffuse bulky rectal wall thickening possibly representing primary neoplasm versus metastatic disease. There was mild to moderate abdominal ascites and there was a small left pleural effusion. There was diffuse fatty infiltration of the liver with no evidence for focal liver lesions. She underwent CT directed biopsy of the omental mass on 11/04/2021. Pathology ultimately came back showing metastatic adenocarcinoma consistent with ovarian primary, most suggestive of serous cell carcinoma. The tumor was strongly positive for CA-125 and for Sammy-EP4. ER was positive at 100%, but VT was negative and the tumor was also negative for overexpression of HER-2/rolando. However, in the meantime, the day following the biopsy she was admitted to the hospital with nausea/vomiting in association with worsening abdominal pain. She had clinical evidence of septic shock, and her blood cultures subsequently grew Clostridium perfringens. She also was found to have COVID-19 virus infection. She had a complicated clinical course which included acute renal failure and acute respiratory failure, but with antibiotic therapy and supportive treatment measures she did show gradual improvement, including complete recovery of her renal function. During the hospitalization she underwent paracentesis on several occasions, and her peritoneal fluid cytology was positive for metastatic adenocarcinoma consistent with ovarian primary. Her initial CT scans also had shown left pleural effusion with left lower lobe atelectasis. She did not have any pleural fluid sampling. Dr. Amor had seen for inpatient consultation, and had also conferred with one of the PLANT ATTENDANT [employer] ASSISTANT OPERATOR oncologist in [place]. The recommendation was to proceed with neoadjuvant chemotherapy and to reassess for debulking surgery after 3 cycles. On 11/17/2021 she began cycle 1 of carboplatin/paclitaxel administered through a PICC line in the right arm. She tolerated that treatment without acute toxicity. She was able to be discharged home on 11/19/2021. Her other medical illnesses include hypertension, migraine headaches, psoriasis, and depression. Prior surgeries have been limited to cholecystectomy and tubal ligation. She is a non-smoker. Family history is significant in that her mother had been treated for colon cancer, but she apparently had a suspected PLANT ATTENDANT OR ASSISTANT OPERATOR malignancy at the time of her at age 88. Patient is seen today for follow-up. She continues to have generalized weakness and fatigue. Her appetite is fair. She tries to drink Ensure daily to supplement. She denies fever, chills, night sweats. She continues to have some mouth sores but they are improving. She has been doing the salt water baking soda gargles and that has been helping. She denies shortness of breath, cough, chest pain. No nausea or vomiting. She has had diarrhea once or twice but that has resolved at present. She does experience some lower abdominal pain. No urinary symptoms. She also has low back pain. Her pain is controlled with her pain medication. She denies headache, dizziness, numbness or paresthesias. She received her first dose of chemotherapy with carboplatin and paclitaxel in the hospital but does not recall receiving very much education on the medications. Review Of Symptoms: See above. Past Medical History: Depression Hypertension Migraine headaches Psoriasis Past Surgical History: Cholecystectomy in 2011 Tubal ligation in 1995 Allergies: No Known Allergies. Medications: Allopurinol 1 Tablet (of 100 mg) Oral daily Amitriptyline HCl 1 Tablet (of 25 mg) Oral at bedtime FLUoxetine HCl 1 Capsule (of 40 mg) Oral daily Furosemide 1 Tablet (of 20 mg) Oral daily Gentamicin Sulfate (0.1 %) Ointment Topical Take as Directed oxyCODONE HCl (10 mg) Tablet Oral Take as Directed Family History: Father with an aortic aneurysm at around age 80. Her mother at age 88. At the time they suspected a PLANT ATTENDANT OR ASSISTANT OPERATOR cancer. She had previous treatment for colon cancer and superficial bladder cancer. A brother of a head/neck cancer at age 67. Social History: Ms. Diaz is . Ms. Diaz has never smoked. She has no history of drinking. She has a non-smoker. She does not drink alcohol. Physical Examination: Performed on Nov 29, 2021 14:38: Height - 63.00 in, Weight - 169.4 lbs (LOW), BSA - 1.80 sq.m, BMI - 30.01 (HIGH), Temperature - 96.6 F (LOW), Pulse - 88 /min, Respiration - 18 /min, BP - 124/77 mm(hg), O2 Sat - 96 %, Pain - 3, and Fatigue - 8. Performance Status: 3 - Capable of only limited self-care, confined to bed or chair more than 50% of waking hours. (ECOG) Constitutional Alert, cooperative, oriented. Mood and affect appropriate. Appears close to chronological age. Well nourished. Well developed. Head Normocephalic; no scars. Eyes Conjunctivae and sclerae are clear and without icterus. Pupils are reactive and equal. Respiratory Lungs are clear to auscultation without rhonchi or wheezing. Cardiovascular Regular rate and rhythm of heart without murmurs, gallops or rubs. Abdomen Non-tender, non-distended, no masses, ascites or hepatosplenomegaly. Good bowel sounds. No guarding or rebound tenderness. Extremities No visible deformities, no cyanosis, clubbing or edema. Pulses 3+ and equal bilaterally. Musculoskeletal No tenderness or swelling. Generalized weakness Integumentary Wound to sacral area Psychiatric Alert and oriented times three. Coherent speech. Verbalizes understanding of our discussions today. Laboratory: Test performed on Nov 29, 2021 12:50 Sodium 132 mmol/L Potassium 3.5 mmol/L Chloride 94 mmol/L CO2 28 mmol/L Anion Gap 13.5 BUN 8 mg/dL Creatinine 0.4 mg/dL Cr Clearance (Est) 188.9000 mL/min eGFR 164.5 mL/min Glucose 84 mg/dL Osmolality - Calculated 272 mOsm/kg Calcium 8.8 mg/dL Protein, Total 7.0 g/dL Albumin 2.9 g/dL Globulin 4.1 g/dL Bilirubin, Total 0.6 mg/dL ALT (SGPT) 21 U/L AST (SGOT) 34 U/L Alkaline Phosphatase 170 IU/L WBC 3.1 10 3/uL RBC 3.36 10 6/uL HGB 9.0 g/dL HCT 28.8 % MCV 85.7 fl MCH 26.8 pg MCHC 31.3 g/dL RDW 18.9 % Platelet Count 121 10 3/cmm MPV 9.9 fL Neutrophils 2.04 10 3/uL Lymphocytes 0.6 10 3/uL Monocytes 0.4 10 3/uL Eosinophils 0.0 10 3/uL Basophils 0.0 10 3/uL Neutrophil % 65.8 % Lymphocyte % 19.4 % Monocyte % 12.3 % Eosinophil % 1.3 % Basophils % 0.6 % NRBC % 0 % Anti-D Positive Blood Type OP Antibody Screen (Gel) NEGATIVE Impression: 1. 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 2. Hypertension. 3. History of chronic migraine. 4. Psoriasis. 5. Depression. Plan: Patient with metastatic adenocarcinoma consistent with ovarian primary, most suggestive of serous cell carcinoma. She had presented with CT evidence of extensive peritoneal carcinomatosis. The diagnosis was confirmed by CT directed biopsy of omental mass. She had positive peritoneal fluid cytology. There was also associated left pleural effusion, but she had no pleural fluid sampling. As such, her disease is stage at least IIIC, but likely stage ELAN. Her clinical course was complicated by septic shock due to Clostridium perfringens and at the same time she also had COVID-19 virus infection. She developed acute renal failure and acute respiratory failure, but on antibiotic therapy she did show gradual recovery, including normalization of her renal function. On 11/17/2021 she began cycle 1 of neoadjuvant chemotherapy with carboplatin/paclitaxel administered through a PICC line in the right arm. She tolerated the treatment without acute toxicity. Patient continues to be weak and increased fatigue although she does feel like that she is improving slowly. Her lab values were explained to her and her and discussed in detail. Education provided about carboplatin and paclitaxel including side effects, effects on lab values, and the use of dexamethasone prior to treatment. Handouts were also provided to the patient and her . Patient received 4 units of packed red blood cells last week her hemoglobin has improved today to 9.0. Her next cycle of chemotherapy will carboplatin and paclitaxel is on December 08, 2021. She will return to the clinic for follow-up with CBC and CMP and if labs are good will receive second cycle of carboplatin and paclitaxel. Signed By: Eulalia Cam N.P. <<Signature on File>>
== END 2021-12-06 23:59 | disposition home or self-care (01) ==
LOC: ONCMED 06:38
PROVIDERS: Internal Medicine Medical Oncology; PCP Internal Medicine; Visit Provider Nurse Practitioner Family
DX: C56.1 Malignant neoplasm of right ovary (principal); C78.6 Secondary malignant neoplasm of retroperitoneum and peritoneum; J90 Pleural effusion, not elsewhere classified; I10 Essential (primary) hypertension; L40.9 Psoriasis, unspecified; F32.9 Major depressive disorder, single episode, unspecified; Z86.69 Personal history of other diseases of the nervous system and sense organs; Z86.19 Personal history of other infectious and parasitic diseases; Z86.16 Personal history of COVID-19; Z79.899 Other long term (current) drug therapy
CPT/HCPCS: 36430; 36592; 80048; 80053; 85025; 86850; 86900; 86920; 96374; 99211; 99214; J1940; J7050; P9016

== ENCOUNTER 2021-11-30 13:27 | Outpatient (CLI) | payer OTHER, SELFPAY | END 2021-11-30 13:28 | disposition home or self-care (01) | LOC: WOUND 13:27 | PROVIDERS: PCP Internal Medicine; Visit Provider Emergency Medicine | DX: I96 Gangrene, not elsewhere classified (principal); L89.313 Pressure ulcer of right buttock, stage 3 | CPT/HCPCS: 11042; 11045; 87070; 87176; 87205; 99213 ==

== ENCOUNTER 2021-12-07 10:24 | Outpatient (CLI) | payer OTHER, SELFPAY | END 2021-12-07 10:25 | disposition home or self-care (01) | LOC: WOUND 10:26 | PROVIDERS: PCP Internal Medicine; Visit Provider Thoracic Surgery (Cardiothoracic Vascular Surgery) | DX: L89.313 Pressure ulcer of right buttock, stage 3 (principal) | CPT/HCPCS: 99212; A6220 ==

== ENCOUNTER 2021-12-14 09:56 | Outpatient (CLI) | payer OTHER, SELFPAY | END 2021-12-14 09:57 | disposition home or self-care (01) | LOC: WOUND 09:57 | PROVIDERS: PCP Internal Medicine; Visit Provider Emergency Medicine | DX: I96 Gangrene, not elsewhere classified (principal); L89.313 Pressure ulcer of right buttock, stage 3 | CPT/HCPCS: 11042; 11045; 87635 ==

== ENCOUNTER 2021-12-16 06:46 | Outpatient (RCR) | payer OTHER, SELFPAY ==
[2021-12-08 09:17] LABS: Basophils # 0.1 10^3/uL (0.0-0.1); Basophils % 0.7 %; Hemoglobin 9.1 g/dL (11.5-15.3); Lymphocytes % 9.7 %; Mean Corpuscular HGB Conc 29.4 g/dL (30.0-36.0); Mean Corpuscular Hemoglobin 26.4 pg (28.0-34.0); Mean Corpuscular Volume 89.9 fl (81-99); Mean Platelet Volume 9.3 fL (7.4-10.4); Monocytes # 0.1 10^3/uL (0.2-0.9); Monocytes % 1.3 %; Neutrophils # 8.93 10^3/uL (1.8-7.7); Nucleated Red Blood Cells % 0 %; Red Blood Count 3.45 10^6/uL (4.1-5.3); Red Cell Distribution Width 18.7 % (12.1-15.1); White Blood Count 10.6 10^3/uL (4.0-10.0)
[2021-12-08 09:36] LABS: Alanine Aminotransferase 8 U/L (0-33); Albumin Level 3.1 g/dL (3.5-5.2); Alkaline Phosphatase 172 IU/L (35-105); Blood Urea Nitrogen 10 mg/dL (6-20); Calcium 9.3 mg/dL (8.5-10.5); Carbon Dioxide 23 mmol/L (22-29); Chloride 96 mmol/L (98-107); Globulin 5.3 g/dL (1.3-4.6); Glucose 233 mg/dL (65-115); Osmolality Calculated 287 mOsm/kg (285-295); Sodium 135 mmol/L (136-145); Total Bilirubin 0.3 mg/dL (0.15-1.2); Total Protein 8.4 g/dL (6.6-8.7)
[2021-12-08 09:41] LABS: Anion Gap 21.6 (5-19); Aspartate Amino Transferase 28 U/L (0-32); Potassium 5.6 mmol/L (3.5-5.1)
[2021-12-08 09:46] LABS: Platelet Count 1538 10^3/cmm (130-400)
[2021-12-08] MEDS: famotidine 20 mg/2 mL INJ IVP (11:18)
[2021-12-08] MEDS: sodium chloride 0.9% 250 ML 75 ML IV (11:18)
[2021-12-08] MEDS: diphenhydrAMINE 50 mg/mL SDV 1mL 25 MG IV (11:20)
[2021-12-08] MEDS: palonosetron 0.25 mg/5 mL SDV IV (11:27)
[2021-12-08] MEDS: fosaprepitant 150 MG in sodium chloride 0.9% 150 ML 300 MG IV (11:47)
--- NOTE | 2021-12-08 11:54 | PC.PHAR ---
REGARDING CARBO DOSING: Spoke with Eulalia regarding neal's carbo dose of 900mg. due to patients ht/wt/renal function, i feel the system is overestimating her carbo dose. utilizing ibw, dose would be around 750mg. Eulalia agreed. will proceed with 750mg today and note that dosage for future cycles. Spoke with patient to confirm her height and weight.
--- NOTE | 2021-12-10 08:20 | ONC FU_ITS ---
Eulalia Cam Progress Note Patient: Genny Diaz Unit #: [id number]: 1965 Dicatated By: Eulalia Cam N.P.Date of Visit:Dec 08, 2021 Onc MED Follow-up/Prog Note Chief Complaint: Ovarian cancer. History of Present Illness: This is a 56-year-old woman with advanced ovarian carcinoma, presenting with CT evidence of peritoneal carcinomatosis. She had presented to Dr. Farris with abdominal swelling and postprandial abdominal discomfort. An abdominal ultrasound on 10/25/2021 showed hepatomegaly with coarsened echogenicity. A nodular area of differential echogenicity was noted in the left hepatic lobe measuring 4.3 x 5.4 cm. There was no hydronephrosis noted. There was mild ascites estimated at 1300 mL. Pelvic ultrasound showed a cystic lesion in the right ovary measuring 5.0 x 4.0 x 3.7 cm and containing internal debris. The left ovary was not well visualized. A small amount of free fluid was noted in the cul-de-sac. Further evaluation with CT of the abdomen/pelvis on 10/26/2021 showed extensive bulky peritoneal carcinomatosis compatible with metastatic disease involving the ventral abdominal peritoneum and pelvis. A prominent metastatic implant was noted in the left upper quadrant measuring 4.7 x 3.1 cm with an additional notable metastatic implant in the left lower quadrant measuring 3.8 x 4.7 cm. A cystic lesion in the midline pelvis measuring 4.2 x 4.6 cm with eccentric mural nodularity was felt to likely represent the a cystic ovarian lesion seen on the ultrasound. There was diffuse bulky rectal wall thickening possibly representing primary neoplasm versus metastatic disease. There was mild to moderate abdominal ascites and there was a small left pleural effusion. There was diffuse fatty infiltration of the liver with no evidence for focal liver lesions. She underwent CT directed biopsy of the omental mass on 11/04/2021. Pathology ultimately came back showing metastatic adenocarcinoma consistent with ovarian primary, most suggestive of serous cell carcinoma. The tumor was strongly positive for CA-125 and for Sammy-EP4. ER was positive at 100%, but VT was negative and the tumor was also negative for overexpression of HER-2/rolando. However, in the meantime, the day following the biopsy she was admitted to the hospital with nausea/vomiting in association with worsening abdominal pain. She had clinical evidence of septic shock, and her blood cultures subsequently grew Clostridium perfringens. She also was found to have COVID-19 virus infection. She had a complicated clinical course which included acute renal failure and acute respiratory failure, but with antibiotic therapy and supportive treatment measures she did show gradual improvement, including complete recovery of her renal function. During the hospitalization she underwent paracentesis on several occasions, and her peritoneal fluid cytology was positive for metastatic adenocarcinoma consistent with ovarian primary. Her initial CT scans also had shown left pleural effusion with left lower lobe atelectasis. She did not have any pleural fluid sampling. Dr. Amor had seen for inpatient consultation, and had also conferred with one of the [employer] oncologist in [place]. The recommendation was to proceed with neoadjuvant chemotherapy and to reassess for debulking surgery after 3 cycles. On 11/17/2021 she began cycle 1 of carboplatin/paclitaxel administered through a PICC line in the right arm. She tolerated that treatment without acute toxicity. She was able to be discharged home on 11/19/2021. Her other medical illnesses include hypertension, migraine headaches, psoriasis, and depression. Prior surgeries have been limited to cholecystectomy and tubal ligation. She is a non-smoker. Family history is significant in that her mother had been treated for colon cancer, but she apparently had a suspected [employer] malignancy at the time of her at age 88. Patient is seen today for follow-up. She continues to have weakness and fatigue but it is improving. Her appetite is fair. She denies fever, chills, night sweats. Her mouth sores have resolved. She denies shortness of breath, cough, chest pain. No nausea, vomiting, diarrhea, constipation. She does have some mild abdominal pain but that is controlled with her pain medications. She denies joint or bone pain. No headache or dizziness. She presents today for her second cycle of chemotherapy. Review Of Symptoms: See above. Past Medical History: Depression Hypertension Migraine headaches Psoriasis Past Surgical History: Cholecystectomy in 2011 Tubal ligation in 1995 Allergies: No Known Allergies. Medications: Allopurinol 1 Tablet (of 100 mg) Oral daily Amitriptyline HCl 1 Tablet (of 25 mg) Oral at bedtime FLUoxetine HCl 1 Capsule (of 40 mg) Oral daily Gentamicin Sulfate (0.1 %) Ointment Topical Take as Directed oxyCODONE HCl (10 mg) Tablet Oral Take as Directed Family History: Father with an aortic aneurysm at around age 80. Her mother at age 88. At the time they suspected a [employer] cancer. She had previous treatment for colon cancer and superficial bladder cancer. A brother of a head/neck cancer at age 67. Social History: Ms. Diaz is . Ms. Diaz has never smoked. She has no history of drinking. She has a non-smoker. She does not drink alcohol. Physical Examination: Performed on Dec 08, 2021 11:48: Height - 63.00 in, Weight - 156.0 lbs (LOW), BSA - 1.74 sq.m, BMI - 27.63, Temperature - 96.6 F (LOW), Pulse - 91 /min, Respiration - 16 /min, BP - 122/81 mm(hg), O2 Sat - 95 % (LOW), Pain - 0, and Fatigue - 5. Performance Status: 2 - Ambulatory/capable of all self-care, unable to perform any work activities. Up and about more than 50% of waking hours. (ECOG) Constitutional Alert, cooperative, oriented. Mood and affect appropriate. Appears close to chronological age. Well nourished. Well developed. Appears weak Head Normocephalic; no scars. Respiratory Lungs are clear to auscultation without rhonchi or wheezing. Cardiovascular Regular rate and rhythm of heart without murmurs, gallops or rubs. Abdomen Non-tender, non-distended, no masses, ascites or hepatosplenomegaly. Good bowel sounds. No guarding or rebound tenderness. Extremities No visible deformities, no cyanosis, clubbing or edema. Pulses 3+ and equal bilaterally. Musculoskeletal No tenderness or swelling, normal range of motion with weakness Psychiatric Alert and oriented times three. Coherent speech. Verbalizes understanding of our discussions today. Laboratory: Test performed on Dec 08, 2021 08:50 Sodium 135 mmol/L Potassium 5.6 mmol/L Chloride 96 mmol/L CO2 23 mmol/L Anion Gap 21.6 BUN 10 mg/dL Creatinine 0.6 mg/dL Cr Clearance (Est) 115.5600 mL/min eGFR 103.0 mL/min Glucose 233 mg/dL Osmolality - Calculated 287 mOsm/kg Calcium 9.3 mg/dL Protein, Total 8.4 g/dL Albumin 3.1 g/dL Globulin 5.3 g/dL Bilirubin, Total 0.3 mg/dL ALT (SGPT) 8 U/L AST (SGOT) 28 U/L Alkaline Phosphatase 172 IU/L WBC 10.6 10 3/uL RBC 3.45 10 6/uL HGB 9.1 g/dL HCT 31.0 % MCV 89.9 fl MCH 26.4 pg MCHC 29.4 g/dL RDW 18.7 % Platelet Count 1538 10 3/cmm MPV 9.3 fL Neutrophils 8.93 10 3/uL Lymphocytes 1.0 10 3/uL Monocytes 0.1 10 3/uL Eosinophils 0.0 10 3/uL Basophils 0.1 10 3/uL Neutrophil % 84.0 % Lymphocyte % 9.7 % Monocyte % 1.3 % Eosinophil % 0.0 % Basophils % 0.7 % NRBC % 0 % Test performed on Nov 29, 2021 12:50 Anti-D Positive Blood Type OP Antibody Screen (Gel) NEGATIVE Test performed on Nov 25, 2021 12:05 Leukocyte Reduced RBC [id number] OP RCLR ASSIGNED Test performed on Nov 22, 2021 10:30 Iron 52 mcg/dL Iron Binding Capacity (TIBC) 189 mcg/dl % Iron Saturation 27.5 % UIBC 137 mcg/dL ABO & Rh Type # 2 OP Test performed on Nov 22, 2021 00:00 Manual Diff DT Impression: 1. 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 2. Hypertension. 3. History of chronic migraine. 4. Psoriasis. 5. Depression. Plan: Patient with metastatic adenocarcinoma consistent with ovarian primary, most suggestive of serous cell carcinoma. She had presented with CT evidence of extensive peritoneal carcinomatosis. The diagnosis was confirmed by CT directed biopsy of omental mass. She had positive peritoneal fluid cytology. There was also associated left pleural effusion, but she had no pleural fluid sampling. As such, her disease is stage at least IIIC, but likely stage ELAN. Her clinical course was complicated by septic shock due to Clostridium perfringens and at the same time she also had COVID-19 virus infection. She developed acute renal failure and acute respiratory failure, but on antibiotic therapy she did show gradual recovery, including normalization of her renal function. On 11/17/2021 she began cycle 1 of neoadjuvant chemotherapy with carboplatin/paclitaxel administered through a PICC line in the right arm. She tolerated the treatment without acute toxicity. Patient presents today for cycle 2 of carboplatin and paclitaxel. Her first cycle was received while she was in the hospital. She states she feels like her strength is gradually returning. She currently has a PICC line in the right arm which she will receive chemotherapy through today but an order will be placed to have up Port-A-Cath placed prior to next treatment. Her Caris report was discussed with her. It indicated no actionable mutation. She will return in 1 week with CBC and CMP. Signed By: Eulalia Cam N.P. <<Signature on File>>
[2021-12-15 10:58] LABS: Basophils # 0.1 10^3/uL (0.0-0.1); Basophils % 1.3 %; Hemoglobin 7.6 g/dL (11.5-15.3); Lymphocytes # 0.9 10^3/uL (0.8-4.8); Mean Corpuscular HGB Conc 29.2 g/dL (30.0-36.0); Mean Platelet Volume 9.5 fL (7.4-10.4); Monocytes # 0.7 10^3/uL (0.2-0.9); Monocytes % 12.4 %; Neutrophils # 3.56 10^3/uL (1.8-7.7); Neutrophils % 68.2 %; Nucleated Red Blood Cells % 0 %; Platelet Count 847 10^3/cmm (130-400); Red Blood Count 2.92 10^6/uL (4.1-5.3); Red Cell Distribution Width 17.7 % (12.1-15.1); White Blood Count 5.2 10^3/uL (4.0-10.0)
[2021-12-15 11:07] LABS: Add Urine Microscopic? YES; Bilirubin Urine 1+ (Negative); Blood Urine 2+ (Negative); Glucose Urine UA Trace (Normal); Ketones Urine Negative (Negative); Leukocyte Esterase Urine Negative (Negative); Nitrate Urine Negative (Negative); Protein Urine 1+ (Negative); Specific Gravity, Urine 1.015 (1.005-1.030); Urine Appearance Clear (CLEAR); Urine Color Yellow (Yellow); Urobilinogen Urine 1 mg/dL (Negative); pH Urine 6 (5-7)
[2021-12-15 11:16] LABS: Add Urine Culture? Yes; Bacteria Urine 2+ /hpf; Mucus Urine 2+ /hpf
[2021-12-15 11:24] LABS: Alanine Aminotransferase 14 U/L (0-33); Albumin Level 3.5 g/dL (3.5-5.2); Alkaline Phosphatase 140 IU/L (35-105); Aspartate Amino Transferase 25 U/L (0-32); Blood Urea Nitrogen 10 mg/dL (6-20); Calcium 9.9 mg/dL (8.5-10.5); Carbon Dioxide 27 mmol/L (22-29); Chloride 95 mmol/L (98-107); Globulin 3.8 g/dL (1.3-4.6); Glucose 128 mg/dL (65-115); Osmolality Calculated 277 mOsm/kg (285-295); Sodium 133 mmol/L (136-145); Total Bilirubin 0.3 mg/dL (0.15-1.2); Total Protein 7.3 g/dL (6.6-8.7)
[2021-12-15 11:32] LABS: Anion Gap 15.1 (5-19); Potassium 4.1 mmol/L (3.5-5.1)
[2021-12-16] VITALS (10 sets, daily range): BP systolic 119–144; BP diastolic 67–84; PULSE 81–94; RESP 16–18; TEMP 36.3–37.3; O2SAT 95–99
[2021-12-16] MEDS: diphenhydrAMINE 25 mg Capsule PO (08:39)
[2021-12-16] MEDS: acetaminophen 325 mg Tablet 650 MG PO (08:39)
[2021-12-16] MEDS: sodium chloride 0.9% 250 ML 999 ML IV (08:39)
[2021-12-16] MEDS: FUROsemide 10 mg/mL SDV 2mL 20 MG IV (10:05)
--- NOTE | 2021-12-18 11:12 | ONC FU_ITS ---
Dr. Amor Patient Follow-Up Note Patient: Genny Diaz Unit #: [id number]: [id number] Dicatated By: Tristan Amor M.D.Date of Visit:Dec 15, 2021 Onc Med Follow-up/Prog Note Chief Complaint: Ovarian cancer. History of Present Illness: This is a 56-year-old woman with advanced ovarian carcinoma, presenting with CT evidence of peritoneal carcinomatosis. She had presented to Dr. Farris with abdominal swelling and postprandial abdominal discomfort. An abdominal ultrasound on 10/25/2021 showed hepatomegaly with coarsened echogenicity. A nodular area of differential echogenicity was noted in the left hepatic lobe measuring 4.3 x 5.4 cm. There was no hydronephrosis noted. There was mild ascites estimated at 1300 mL. Pelvic ultrasound showed a cystic lesion in the right ovary measuring 5.0 x 4.0 x 3.7 cm and containing internal debris. The left ovary was not well visualized. A small amount of free fluid was noted in the cul-de-sac. Further evaluation with CT of the abdomen/pelvis on 10/26/2021 showed extensive bulky peritoneal carcinomatosis compatible with metastatic disease involving the ventral abdominal peritoneum and pelvis. A prominent metastatic implant was noted in the left upper quadrant measuring 4.7 x 3.1 cm with an additional notable metastatic implant in the left lower quadrant measuring 3.8 x 4.7 cm. A cystic lesion in the midline pelvis measuring 4.2 x 4.6 cm with eccentric mural nodularity was felt to likely represent the a cystic ovarian lesion seen on the ultrasound. There was diffuse bulky rectal wall thickening possibly representing primary neoplasm versus metastatic disease. There was mild to moderate abdominal ascites and there was a small left pleural effusion. There was diffuse fatty infiltration of the liver with no evidence for focal liver lesions. She underwent CT directed biopsy of the omental mass on 11/04/2021. Pathology ultimately came back showing metastatic adenocarcinoma consistent with ovarian primary, most suggestive of serous cell carcinoma. The tumor was strongly positive for CA-125 and for Sammy-EP4. ER was positive at 100%, but HI was negative and the tumor was also negative for overexpression of HER-2/rolando. However, in the meantime, the day following the biopsy she was admitted to the hospital with nausea/vomiting in association with worsening abdominal pain. She had clinical evidence of septic shock, and her blood cultures subsequently grew Clostridium perfringens. She also was found to have COVID-19 virus infection. She had a complicated clinical course which included acute renal failure and acute respiratory failure, but with antibiotic therapy and supportive treatment measures she did show gradual improvement, including complete recovery of her renal function. During the hospitalization she underwent paracentesis on several occasions, and her peritoneal fluid cytology was positive for metastatic adenocarcinoma consistent with ovarian primary. Her initial CT scans also had shown left pleural effusion with left lower lobe atelectasis. She did not have any pleural fluid sampling. I had seen her for consultation as an inpatient, and I had conferred with one of the CLINICAL PHARMACY MANAGER oncologists in [place]. The recommendation was to proceed with neoadjuvant chemotherapy and to reassess for debulking surgery after 3 cycles. On 11/17/2021 she began cycle 1 of carboplatin/paclitaxel administered through a PICC line in the right arm. She tolerated that treatment without acute toxicity. She was able to be discharged home on 11/19/2021. Her other medical illnesses include hypertension, migraine headaches, psoriasis, and depression. Prior surgeries have been limited to cholecystectomy and tubal ligation. She is a non-smoker. Family history is significant in that her mother had been treated for colon cancer, but she apparently had a suspected CLINICAL PHARMACY MANAGER malignancy at the time of her at age 87. INTERIM HISTORY: During subsequent outpatient follow-up she did begin to show some clinical improvement, though she continued to have marginal performance status and she did require PRBC transfusion on 11/22/2021 and again on 11/26/2021. She was able to proceed with cycle 2 of carboplatin/paclitaxel on 12/08/2021. She is seen for a follow-up visit. Her main complaint is that during the hospitalization she had developed a significant decubitus skin ulceration in the sacral area, and that has continued to worsen. She is having pain with it, severe enough that she is requiring opiate medication. Near the end of last week she noticed blood in her urine, but that resolved over the weekend. She complains that she is really tired and still has limited activity, but she is up and around. ECOG score is 2. She is starting to eat a little better. She does not have fever or night sweats. She has not had sore mouth or throat. She does not complain of cough, and she has not been having shortness of breath or chest pain. She has just a little bit of nausea. She is having problems with constipation. She has occasional bladder incontinence. She has ongoing problems with back pain and she also has had pain in both legs following the chemotherapy. She does not complain of headache or dizziness. She has no numbness/paresthesia or other obvious neuropathy symptoms. Medications: Allopurinol 1 Tablet (of 100 mg) Oral daily, Amitriptyline HCl 1 Tablet (of 25 mg) Oral at bedtime, FLUoxetine HCl 1 Capsule (of 40 mg) Oral daily, Gentamicin Sulfate (0.1 %) Ointment Topical Take as Directed, oxyCODONE HCl (10 mg) Tablet Oral Take as Directed Allergies: No Known Allergies. Vital Signs: Performed on Dec 15, 2021 11:32 Height - 63.00 in Weight - 149.0 lbs (LOW) BSA - 1.71 sq.m BMI - 26.39 Temperature - 97.9 F (LOW) Pulse - 99 /min Respiration - 16 /min BP - 123/77 mm(hg) O2 Sat - 99 % Pain - 4 Fatigue - 7 Physical Examination: Constitutional - She appears generally weak, Eyes - Sclerae nonicteric. Conjunctivae clear, ENMT - No lesions noted in the oral cavity, Hematologic/Lymphatic - No cervical, clavicular, or axillary adenopathy, Respiratory - Lungs sound clear but with diminished air movement on the left, Cardiovascular - Heart rhythm is regular. There is a II/ systolic murmur. There is no gallop or rub noted, Abdomen - Midly distended and generally softer. Liver and spleen are not enlarged. There is no abdominal mass noted. There is no obvious ascites. There is no inguinal adenopathy, Extremities - Currently no edema, Integumentary - There is a large decubitus ulceration extending down the gluteal fold, mainly to the left side, Neurologic - No focal neurologic deficits noted. Lab/Imaging: Test performed on Dec 15, 2021 10:26 Sodium 133 mmol/L Potassium 4.1 mmol/L Chloride 95 mmol/L CO2 27 mmol/L Anion Gap 15.1 BUN 10 mg/dL Creatinine 0.6 mg/dL Cr Clearance (Est) 110.38 mL/min eGFR 103.0 mL/min Glucose 128 mg/dL Osmolality - Calculated 277 mOsm/kg Calcium 9.9 mg/dL Protein, Total 7.3 g/dL Albumin 3.5 g/dL Globulin 3.8 g/dL Bilirubin, Total 0.3 mg/dL ALT (SGPT) 14 U/L AST (SGOT) 25 U/L Alkaline Phosphatase 140 IU/L Ua Color Yellow WBC 5.2 10 3/uL Ua Appearance Clear RBC 2.92 10 6/uL Ua Glucose Trace HGB 7.6 g/dL Ua Bilirubin 1+ HCT 26.0 % Ua Ketones Negative MCV 89.0 fl Ua Specific Randolph 1.015 MCH 26.0 pg Ua Blood 2+ MCHC 29.2 g/dL Ua pH 6 RDW 17.7 % Ua Protein 1+ Platelet Count 847 10 3/cmm MPV 9.5 fL Ua Urobilinogen 1 mg/dL Neutrophils 3.56 10 3/uL Ua Nitrites Negative Lymphocytes 0.9 10 3/uL Ua Leukocyte Esterase Negative Monocytes 0.7 10 3/uL Eosinophils 0.0 10 3/uL Basophils 0.1 10 3/uL Neutrophil % 68.2 % Lymphocyte % 17.0 % Monocyte % 12.4 % Eosinophil % 0.0 % Basophils % 1.3 % NRBC % 0 % Ua Micro: WBC 10-15 /hpf Ua Micro: RBC 5-10 /hpf Ua Micro: Squam Epith Cells 5-10 /hpf Ua Micro: Bacteria 2+ /hpf Ua Micro: Mucous 2+ /hpf Problem List: 1. 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 2. Hypertension. 3. History of chronic migraine. 4. Psoriasis. 5. Depression. Problems Addressed with this Encounter and Plan: Patient with metastatic adenocarcinoma consistent with ovarian primary, most suggestive of serous cell carcinoma. She had presented with CT evidence of extensive peritoneal carcinomatosis. The diagnosis was confirmed by CT directed biopsy of omental mass. She had positive peritoneal fluid cytology. There was also associated left pleural effusion, but she had no pleural fluid sampling. As such, her disease is stage at least IIIC, but likely stage ELAN. Her clinical course was complicated by septic shock due to Clostridium perfringens and at the same time she also had COVID-19 virus infection. She developed acute renal failure and acute respiratory failure, but on antibiotic therapy she did show gradual recovery, including normalization of her renal function. On 11/17/2021 she began cycle 1 of neoadjuvant chemotherapy with carboplatin/paclitaxel administered through a PICC line in the right arm. She tolerated the treatment without acute toxicity. During subsequent outpatient follow-up she continued to have poor performance status, though she did begin to show some clinical improvement. She required PRBC transfusion on 11/22/2021 and again on 11/26/2021. She was able to proceed with cycle 2 of carboplatin/paclitaxel on 12/08/2021. At this point she is again significantly anemic, and she is being transfused 2 units PRBC. She continues have very limited activity, but there definitely has been some clinical improvement since starting chemotherapy. However, she is having significant issues associated with a decubitus skin ulceration which developed during her hospitalization. I have contacted Dr. Thacker, and he is going to be addressing that here in the clinic today. In the meantime, I will have her continue antibiotic coverage with Bactrim and she also will remain on fluconazole prophylactically. She is given instructions for a bowel regimen. Signed By: Tristan Amor M.D. <<Signature on File>>
== END 2021-12-16 13:20 | disposition home or self-care (01) ==
LOC: ONCMED 06:46
PROVIDERS: Nurse Practitioner Family; PCP Internal Medicine; Visit Provider Internal Medicine Medical Oncology
DX: Z51.11 Encounter for antineoplastic chemotherapy (principal); C56.1 Malignant neoplasm of right ovary; C78.6 Secondary malignant neoplasm of retroperitoneum and peritoneum; J90 Pleural effusion, not elsewhere classified; I10 Essential (primary) hypertension; L40.9 Psoriasis, unspecified; F32.A Depression, unspecified; Z86.69 Personal history of other diseases of the nervous system and sense organs; Z79.899 Other long term (current) drug therapy
CPT/HCPCS: 36430; 80053; 81001; 85025; 86850; 86900; 86920; 87086; 96367; 96375; 96413; 96415; 96417; 99214; 99215; J1100; J1200; J1453; J1940; J2469; J3490; J7030; J7040; J7050; J9045; J9267; P9016; P9040

== ENCOUNTER 2021-12-16 13:26 | Day surgery (SDC) | payer OTHER, SELFPAY ==
[2021-12-16] VITALS (7 sets, daily range): BP systolic 100–135; BP diastolic 57–76; PULSE 85–87; RESP 16–18; TEMP 36.6–37.2; O2SAT 95–97; BMI 26.5
--- NOTE | 2021-12-16 14:06 | W.ED.SKABFB ---
HPI - Skin/Abscess/Foreign Bdy General: Chief complaint: Skin/Abscess/Foreign Body Stated complaint: abscess Time Seen by Provider: 12/16/21 14:00 Source: patient Mode of arrival: ambulatory Limitations: no limitations History of Present Illness: 56-year-old female with a large sacral decubitus ulcer was diverted to the ER because of severity of ulcer and pain. She usually seen in the wound clinic this has been evaluated and seen before. She has a history of abdominal carcinomatosis she also has a history of this ulcer which has been being monitored. She has had difficulty with functioning due to pain and discomfort location of the ulcer. Generalized nauseaAnd weakness. There is concern by the wound care team due to the depth of the ulcer and that it would need emergent debridement to prevent sepsis. MD complaint: other (Sacral decubitus ulcer) Onset (ago): week(s) Location: buttocks (Presacral) Severity: severe Quality: aching Pain Consistency: constant Relieving factors: none Exacerbating factors: none Associated symptoms: Reports cough, myalgias and nausea; Deny arthralgias, chills, fever(s), itching, rigidity, short of breath or vomiting Treatments prior to arrival: none Review of Systems Const: Denies: fever(s) or chills ENMT: Denies: throat pain, ear or mastoid pain, nasal discharge or nasal congestion Card: Denies: chest pain, edema, dyspnea on exertion or orthopnea Resp: Denies: dyspnea, productive cough or non-productive cough GI: Reports: nausea; Denies: vomiting : Denies: flank pain, difficulty voiding, dysuria, urinary frequency or urinary urgency Skin/Breast: Denies: rash or pruritus PFSH ED PFSH: Medical History Anxiety Depression HTN (hypertension) Surgical History History of cholecystectomy History of colonoscopy History of tubal ligation Port-A-Cath in place (12/20/21) left subclavian Family History Mother Colon cancer Social History Smoking and tobacco status: never smoked Alcohol intake: never History of recent travel: No Physical Exam Const: GENERAL APPEARANCE: cooperative ORIENTATION/CONSCIOUSNESS: Yes awake, Yes oriented to person, Yes oriented to place and Yes oriented to time HENMT: COMMON NORMALS: normocephalic, atraumatic and hearing grossly normal bilaterally HEAD & SCALP: normocephalic and atraumatic Neck/C-Spine: COMMON NORMALS: full ROM, no lymphadenopathy, supple and no JVD Resp: COMMON NORMALS: normal respiratory effort, No retractions, No use of accessory muscles and clear to auscultation bilaterally AUSCULTATION: clear to auscultation bilaterally Cardio: COMMON NORMALS: no JVD, regular rate, regular rhythm and No murmurs present (Cardio) RATE: regular rate RHYTHM: regular rhythm Extremity: COMMON NORMALS: normal to inspection, capillary refill normal, no clubbing, cyanosis or edema, no calf tenderness and no pedal edema Neuro: SENSORIUM/ORIENTATION: Yes oriented to person, Yes oriented to place and Yes oriented to time Skin: OTHER: Large presacral ulcer Course Vital Signs: Vital signs: Vital Signs Temperature 98.9 F 12/16/21 17:38 Pulse Rate 86 12/16/21 17:38 Respiratory Rate 18 12/16/21 17:38 Blood Pressure 129/57 12/16/21 17:38 Pulse Oximetry 96 12/16/21 17:38 MDM - Skin/Abscess/Foreign Bdy Medicial Decision Making Patient stage III decubitus ulcer over the sacrum. She has been following with Dr. Thacker. She requires surgical debridement at this point. Dr. Thacker is planning to do in the OR will transfer her to surgery as an obvious patient. Had discussed previously with surgery staff Dr. Thacker will get appropriate lab work in the surgery department. Medical Records I reviewed the patient's medical records. Lab Data I reviewed the patient's lab results. Discharge Plan Discharge Patient Disposition: Placed in Observation Clinical Impression: Sacral decubitus ulcer, stage III, Abdominal carcinomatosis Discharge Diet: Usual diet Discharge Activity: Limit activity as instructed Coding Level of Care Code ED Interior Design Professional for Char Hatch
[2021-12-16] MEDS: sodium chloride 0.9% 1,000 ML 30 ML IV (15:25)
--- NOTE | 2021-12-16 15:53 | ANES.PREANE2 ---
Pre-Anesthetic Assessment Height/Weight: Height 1.6 m Weight 68.039 kg Temp Pulse Resp BP Pulse Ox 98.3 F 85 18 133/73 97 12/16/21 14:46 12/16/21 14:46 12/16/21 14:46 12/16/21 14:46 12/16/21 14:46 Preop Diagnosis: Sacral decubitus Operation Date: 12/16/21 16:40 Proposed Procedures p debridement of decubitus ulcer(Not Applicable) - Haresh Thacker MD Familial anesthetic complications: None Was Beta Juan taken within 24 hours: N/A Was Clonidine taken within 24 hours: N/A Last intake: Intake Last Liquid Date 12/16/21 Last Liquid Time 13:00 Last Solid Date 12/16/21 Last Solid Time 07:00 Social No alcohol and No tobacco Exam alert, oriented x 3, clear to auscultation bilaterally and regular rate & rhythm Airway Submandibular: within normal limits Cervical ROM: within normal limits Mallampati: Class II Dentition: chipped CV/HEM Hypertension Neuropsych Anxiety and Depression Anesthetic Plan ASA status: 3 Anesthesia: Choice Other: Metastatic ovarian CA Risk of > 500 ml blood loss (7ml/kg in children): No Medications/Allergies Home Medications Medication Instructions Recorded Confirmed Last Taken Type amitriptyline 25 mg tablet 25 mg PO BEDTIME 03/02/21 12/14/21 11/03/21 History fluoxetine 40 mg capsule 40 mg PO DAILY 03/02/21 12/14/21 11/04/21 History allopurinol 100 mg tablet 100 mg PO DAILY 30 Days #30 tab 11/19/21 12/14/21 Unknown Rx fluconazole 100 mg tablet 100 mg PO DAILY 12/14/21 12/14/21 Unknown History Allergies Allergy/AdvReac Type Severity Reaction Status Date / Time No Known Allergies Allergy Verified 12/14/21 15:39 Current Medications Generic Name Dose Route Start Last Admin Trade Name Freq PRN Reason Stop Dose Admin Sodium Chloride 1,000 mls @ 30 mls/hr 12/16/21 14:45 12/16/21 15:25 Sodium Chloride 0.9% IV 12/17/21 14:44 30 mls/hr .Q24H WALE Administration PFSH Anesthesia Medical History Anxiety Depression HTN (hypertension) Surgical History History of cholecystectomy History of colonoscopy History of tubal ligation Family History Mother Colon cancer Social History Smoking and tobacco status: never smoked Alcohol intake: never History of recent travel: No Data Anesthesia Cardiac Studies: No Data to Display
--- NOTE | 2021-12-16 17:23 | P.OP_ITS ---
Operative Report Date of procedure: December 16, 2021 Pre-op diagnosis: Preop Diagnosis Sacral decubitus Post-op diagnosis: same Procedure done: Debridement sacral decubitus Implants: None Specimens removed/disposition: Tissue specimen for culture Surgeon: Haresh Thacker Anesthesia: MAC Complications: None Brief History: Ms. Diaz is a 56-year-old female with ovarian carcinoma who had a lengthy hospital stay with resultant sacral decubitus. She has been followed carefully in wound care services. Eschar is beginning to separate and full-thickness debridement is required for this stage III pressure ulcer. Rationale for debridement was carefully discussed. Proper consents have been reviewed and signed. Procedure: Ms. Diaz was taken to the operating room theater and carefully placed in the left lateral decubitus position. She received IV conscious sedation with anesthesia monitoring. Her entire mid sacral region was sterilely prepped and draped. Forceps and #10 scalpel blade was utilized to incise at the junction between vital and devitalized tissue representing the margins at this stage III pressure decubitus. This was continued down to the adipose layer to the fascia until complete excision of devitalized tissue had been performed. Resultant wound measures 7 cm x 5 cm x 2.5 cm in depth. All devitalized tissue was removed and specimens were collected for culture. Wound was carefully irrigated. Cautery was utilized for hemostasis of bleeding points. Wet-to-dry dressing was then applied followed by pressure dressing and secured with ABD pad and undergarment. She was carefully returned to the supine position where she was awakened from conscious sedation and transferred to the recovery room stretcher. She will continue recovery in PACU. I did confer with her at completion of the procedure. She will be discharged later today for follow- up in wound care services with plans for wet-to-dry dressing changes. At the completion of the procedure, she is in stable condition.
--- NOTE | 2021-12-16 17:27 | ANE.PACU2 ---
Inpatient post-anesthesia follow up: Airway intact: Yes Vital signs: Temperature 98.5 F Pulse Rate 87 Respiratory Rate 18 Blood Pressure 131/75 Pulse Oximetry 96 Oxygen Delivery Me thod Room Air Oxygen Flow Rate Fraction of Inspir ed Oxygen Hydration adequate: Yes Nausea and vomiting: No Pain level: 2 Mental status: Baseline
[2021-12-16] MEDS: oxyCODONE-APAP 5-325 mg Tablet 1 TAB PO (17:55)
== END 2021-12-16 18:15 | disposition home or self-care (01) ==
LOC: ER 14:11 → OR 14:22
PROVIDERS: Emergency Provider Family Medicine; PCP Internal Medicine; Visit Provider Thoracic Surgery (Cardiothoracic Vascular Surgery)
PROC: (CPT 11043; principal; 2021-12-16 16:30)
DX: L89.153 Pressure ulcer of sacral region, stage 3 (principal); C56.9 Malignant neoplasm of unspecified ovary; I10 Essential (primary) hypertension; F41.9 Anxiety disorder, unspecified; F32.9 Major depressive disorder, single episode, unspecified; Z80.0 Family history of malignant neoplasm of digestive organs
CPT/HCPCS: 11043; 11046; 87070; 87077; 87176; 87186; 87205; J0690; J2704; J3010; J7030

== ENCOUNTER 2021-12-20 06:41 | Day surgery (SDC) | payer OTHER, SELFPAY ==
[2021-12-14 15:46] VITALS: BMI 29.7
--- NOTE | 2021-12-20 | SCC_ITS ---
Procedure done: 1. Placement of PowerPort in the left subclavian vein 2. Fluoroscopic guidance and interpretation for placement of catheter 21.8 seconds of fluoroscopic guidance, for a cumulative dose of 2.13 mGy, was provided to Dr. Abdullahi by the radiology department. C-arm images of the chest were saved for the patient's permanent record. [facility]
--- NOTE | 2021-12-20 06:53 | W.PM.OPSFHP ---
Same Day Surgery H&P Indication for Procedure/HPI DATE OF PROCEDURE: December 20, 2021 CHIEF COMPLAINT/INDICATIONFOR SURGICAL PROCEDURE: port placement PREOP DIAGNOSIS: ovarian ca PLANNED PROCEDURE: Operation Date: 12/20/21 08:10 Proposed Procedures p Portacath [id number] ABD CARCINOMATOSIS(Not Applicable) - Chivo Abdullahi MD Medications/Allergies* Home Medications Medication Instructions Recorded Confirmed Type amitriptyline 25 mg tablet 25 mg PO BEDTIME 03/02/21 12/14/21 History fluoxetine 40 mg capsule 40 mg PO DAILY 03/02/21 12/14/21 History fluconazole 100 mg tablet 100 mg PO DAILY 12/14/21 12/14/21 History Allergies/Adverse Reactions Allergy/AdvReac Type Severity Reaction Status Date / Time No Known Allergies Allergy Verified 12/14/21 15:39 Pertinent History/Comorbid Conditions* Medical History (Updated 12/16/21 @ 14:09 by Umberto Bagley DO) Anxiety Depression HTN (hypertension) Surgical History (Updated 12/10/21 @ 11:47 by Chivo Abdullahi MD) History of cholecystectomy History of colonoscopy History of tubal ligation Family History (Updated 11/05/21 @ 21:35 by Don Camacho MD) Colon cancer Mother Social History Smoking and tobacco status: never smoked Alcohol intake: never History of recent travel: No Pertinent Exam Findings alert, oriented x 3 and regular rate & rhythm Recommendations Surgery/Procedure today Coding Level of Care Code Acute Bunch Maker Hand for Harshilg Mamie
[2021-12-20 06:54] VITALS: BP 128/91; PULSE 97; TEMP 37.1; O2SAT 96
--- NOTE | 2021-12-20 07:10 | SC_ITS ---
WS: [id number] C-arm fluoroscopy for Port-A-Cath placement, 12/20/2021 Clinical Data: intra-op Comparison: None. Findings: A left Port-A-Cath has been inserted. SC/C-arm FL for CVA [id number] Impression: Left Port-A-Cath insertion.
[2021-12-20] MEDS: sodium chloride 0.9% 1,000 ML 30 ML IV (07:16)
--- NOTE | 2021-12-20 07:53 | ANES.PREANE2 ---
Pre-Anesthetic Assessment Height/Weight: Height 1.6 m Weight 76.204 kg Temp Pulse BP Pulse Ox 98.7 F 97 128/91 96 12/20/21 06:54 12/20/21 06:54 12/20/21 06:54 12/20/21 06:54 Preop Diagnosis: ovarian ca Operation Date: 12/20/21 08:10 Proposed Procedures p Portacath [id number] ABD CARCINOMATOSIS(Not Applicable) - Chivo Abdullahi MD Familial anesthetic complications: none Was Beta Juan taken within 24 hours: N/A Was Clonidine taken within 24 hours: N/A Last intake: Intake Last Liquid Date 12/19/21 Last Liquid Time 22:00 Last Solid Date 12/19/21 Last Solid Time 22:00 Social No alcohol and No tobacco Exam alert, oriented x 3, clear to auscultation bilaterally and regular rate & rhythm Airway Mallampati: Class II Dentition: chipped Anesthetic Plan ASA status: 3 Anesthesia: MAC Risk of > 500 ml blood loss (7ml/kg in children): No Other Pertinent Information metastatic ovarian cancer Medications/Allergies Home Medications Medication Instructions Recorded Confirmed Last Taken Type amitriptyline 25 mg tablet 25 mg PO BEDTIME 03/02/21 12/20/21 12/19/21 History fluoxetine 40 mg capsule 40 mg PO DAILY 03/02/21 12/20/21 12/19/21 History fluconazole 100 mg tablet 100 mg PO DAILY 12/14/21 12/14/21 Unknown History (Diflucan) oxycodone-acetaminophen 5 mg-325 1 tab PO Q8H PRN 5 Days #15 tab 12/16/21 12/20/21 12/20/21 Rx mg tablet (Percocet) sulfamethoxazole 800 1 tab PO BID #6 tab 12/16/21 12/20/21 12/19/21 Rx mg-trimethoprim 160 mg tablet (Bactrim DS) Allergies Allergy/AdvReac Type Severity Reaction Status Date / Time No Known Allergies Allergy Verified 12/14/21 15:39 Current Medications Generic Name Dose Route Start Last Admin Trade Name Freq PRN Reason Stop Dose Admin Sodium Chloride 1,000 mls @ 30 mls/hr 12/20/21 07:00 12/20/21 07:16 Sodium Chloride 0.9% IV 12/21/21 06:59 30 mls/hr .Q24H WALE Administration PFSH Anesthesia Medical History (Updated 12/20/21 @ 07:11 by Chivo Abdullahi MD) Anxiety Depression HTN (hypertension) Surgical History (Updated 12/20/21 @ 07:11 by Chivo Abdullahi MD) History of cholecystectomy History of colonoscopy History of tubal ligation Port-A-Cath in place (12/20/21) left subclavian Family History Mother Colon cancer Social History Smoking and tobacco status: never smoked Alcohol intake: never History of recent travel: No Data Anesthesia Cardiac Studies: No Data to Display
[2021-12-20] MEDS: lidocaine 1% INJ 20 mL SUBCUT (08:15)
[2021-12-20] MEDS: heparin, porcine 1,000 unit/mL INJ 10 mL 10000 UNIT XX (08:22)
[2021-12-20] MEDS: sodium chloride 0.9% 100 mL Bag XX (08:22)
[2021-12-20 08:42] VITALS: BP 105/54; PULSE 87; RESP 21; TEMP 36.8; O2SAT 96
[2021-12-20 08:47] VITALS: BP 104/55; PULSE 87; RESP 18; O2SAT 95
--- NOTE | 2021-12-20 08:49 | P.OP_ITS ---
Operative Report Date of procedure: December 20, 2021 Pre-op diagnosis: Ovarian cancer Post-op diagnosis: same Procedure done: 1. Placement of PowerPort in the left subclavian vein 2. Fluoroscopic guidance and interpretation for placement of catheter Pathology: none sent Surgeon: Chivo Abdullahi Anesthesia: MAC Condition: stable Disposition: PACU Procedure: The patient was taken to the Operating Room and the chest and neck bilaterally were prepped and draped in a sterile manner after the antibiotic had been administered and shoulder rolls had been placed. A total of 10 mL of 1% lidocaine with 0.5% Marcaine was infiltrated under the clavicle on the left side at the site of the planned entry into the subclavian vein. An introducer needle was then used to access the subclavian vein under the clavicle and after withdrawing blood syringe was removed and a guidewire passed under fluoroscopy into the superior vena cava. The site of the planned port was then marked on the chest and a 15 blade was used to make a 3 cm skin incision this was extended into the subcutaneous tissue using electrocautery and a subcutaneous pocket over the pectoralis fascia was created 2-0 Vicryl suture was used to suture the port to the pectoral fascia in the pocket on 3 sides. The catheter, after having been flushed with hep saline, was attached to the tunneler and a tunnel created between the port site and the subclavian vein entry site. Under fluoroscopy the dilator sheath was passed over the guidewire into the proximal superior vena cava. The inner dilator was removed and the sheath left behind and~ the catheter was introduced through the peel-away sheath with the tip in the superior vena cava. The peel-away sheath was removed. The proximal end of the catheter was cut to the right size and was attached to the port. Using a Doyle needle the port was accessed, it withdrew blood easily and flushed easily. A final 5cc of heparin was used to flush the PowerPort. The subcutaneous tissue was approximated using interrupted 3-0 Vicryl sutures and the skin at the introducer site and the port site was closed using subcuticular running 4-0 Monocryl sutures. Surgical glue was applied and the patient was st able throughout the procedure. Fluoroscopic guidance and interpretation was performed for introduction of the guidewire in the left subclavian vein, passage of dilator and placement of catheter tip in the distal superior vena cava.
[2021-12-20 08:52] VITALS: BP 107/62; PULSE 86; RESP 18; TEMP 36.6; O2SAT 97
[2021-12-20 08:59] VITALS: BP 115/65; PULSE 85; RESP 16; TEMP 37.1; O2SAT 97
--- NOTE | 2021-12-20 09:09 | SUR.PHASEII ---
per Dr. Abdullahi, Dr. Naik office notified that portacath ok to use at next visit.
[2021-12-20] MEDS: oxyCODONE-APAP 5-325 mg Tablet 1 TAB PO (09:19)
[2021-12-20 09:22] VITALS: BP 126/59; PULSE 84; RESP 16; TEMP 36.9; O2SAT 97
--- NOTE | 2021-12-20 13:47 | ANE.PACU2 ---
Inpatient post-anesthesia follow up: Airway intact: Yes Vital signs: Temperature 98.5 F Pulse Rate 84 Respiratory Rate 16 Blood Pressure 126/59 Pulse Oximetry 97 Oxygen Delivery Me thod Room Air Oxygen Flow Rate Fraction of Inspir ed Oxygen Hydration adequate: Yes Nausea and vomiting: No Pain level: 2 Mental status: Baseline
== END 2021-12-20 09:32 | disposition home or self-care (01) ==
PROVIDERS: PCP Internal Medicine; Visit Provider Surgery
PROC: (CPT 36561; principal; 2021-12-20 08:10)
DX: C56.9 Malignant neoplasm of unspecified ovary (principal); F41.9 Anxiety disorder, unspecified; F32.9 Major depressive disorder, single episode, unspecified; I10 Essential (primary) hypertension
CPT/HCPCS: 36561; 76000; 77001; C1788; J0690; J1644; J2250; J2704; J3010; J3490; J7030

== ENCOUNTER 2021-12-22 09:10 | Outpatient (CLI) | payer OTHER, SELFPAY | END 2021-12-22 09:11 | disposition home or self-care (01) | LOC: WOUND 09:10 | PROVIDERS: PCP Internal Medicine; Visit Provider Thoracic Surgery (Cardiothoracic Vascular Surgery) | DX: L89.313 Pressure ulcer of right buttock, stage 3 (principal); I96 Gangrene, not elsewhere classified | CPT/HCPCS: 11042; 11045 ==

== ENCOUNTER 2021-12-27 09:22 | Outpatient (CLI) | payer OTHER, SELFPAY | END 2021-12-27 09:23 | disposition home or self-care (01) | LOC: WOUND 09:22 | PROVIDERS: PCP Internal Medicine; Visit Provider Thoracic Surgery (Cardiothoracic Vascular Surgery) | DX: I96 Gangrene, not elsewhere classified (principal); L89.313 Pressure ulcer of right buttock, stage 3 | CPT/HCPCS: 11042; 11045 ==

== ENCOUNTER 2022-01-05 06:48 | Outpatient (RCR) | payer OTHER, SELFPAY ==
[2021-12-22 08:44] LABS: Basophils # 0.1 10^3/uL (0.0-0.1); Basophils % 0.8 %; Eosinophils % 0.3 %; Hematocrit 30.9 % (37.0-47.0); Hemoglobin 9.5 g/dL (11.5-15.3); Lymphocytes # 1.4 10^3/uL (0.8-4.8); Mean Corpuscular HGB Conc 30.7 g/dL (30.0-36.0); Mean Corpuscular Hemoglobin 27.9 pg (28.0-34.0); Mean Corpuscular Volume 90.9 fl (81-99); Mean Platelet Volume 9.8 fL (7.4-10.4); Monocytes # 0.8 10^3/uL (0.2-0.9); Monocytes % 12.3 %; Neutrophils # 3.84 10^3/uL (1.8-7.7); Neutrophils % 63.3 %; Nucleated Red Blood Cells % 0 %; Platelet Count 269 10^3/cmm (130-400); Red Cell Distribution Width 17.9 % (12.1-15.1); White Blood Count 6.1 10^3/uL (4.0-10.0)
[2021-12-22 09:07] LABS: Alanine Aminotransferase 10 U/L (0-33); Albumin Level 3.7 g/dL (3.5-5.2); Alkaline Phosphatase 130 IU/L (35-105); Anion Gap 16.1 (5-19); Aspartate Amino Transferase 17 U/L (0-32); Blood Urea Nitrogen 9 mg/dL (6-20); Calcium 9.9 mg/dL (8.5-10.5); Carbon Dioxide 24 mmol/L (22-29); Chloride 96 mmol/L (98-107); Globulin 4.3 g/dL (1.3-4.6); Glomerular Filtration Rate 73.9 mL/min (90-130); Glucose 119 mg/dL (65-115); Osmolality Calculated 274 mOsm/kg (285-295); Potassium 4.1 mmol/L (3.5-5.1); Sodium 132 mmol/L (136-145); Total Bilirubin 0.3 mg/dL (0.15-1.2)
--- NOTE | 2021-12-27 09:11 | CT_ITS ---
WS: [id number] CT ABDOMEN AND PELVIS WITH CONTRAST HISTORY: PERITONEAL CANCER TECHNIQUE: Imaging performed of the abdomen and pelvis with IV contrast. Single phase imaging of the abdomen. Coronal and sagittal reformats are submitted. All CT scans at [facility] use at [address] one of these dose optimization techniques: automated exposure control; mA and/or kV adjustment per patient size (includes targeted exams where dose is matched to clinical indication); or iterative re construction. IV CONTRAST: Omnipaque 300; 95 mL IV. Oral contrast: Yes. DLP: 995.01 mGy.cm COMPARISON: 11/14/2021, 11/05/2021 Lower thorax: No pulmonary nodule. There is a small layering LEFT pleural effusion which has not sign ificantly changed. Heart is normal size. No hiatal hernia. Liver/biliary system: Liver is normally enhancing. No mass identified within the liver. There are a f ew soft tissue nodules along the medial surface RIGHT lobe of the liver, these are probably neoplasti c implants on the surface of the liver. There is a subhepatic fluid collection along the inferior RIG HT lobe of the liver measuring 2.5 x 5.4 cm. This collection is smaller than it was on the prior stud ies and now more loculated but there is some mild wall enhancement. No air. Gallbladder: Status post cholecystectomy. Pancreas: Moderate diffuse atrophy of the pancreas. Spleen: Normal size spleen. Focal implant along the superior spleen is probably an omental implant. D oes not appear to extend into the spleen. Adrenal glands: New thickening and nodularity associated with the RIGHT adrenal gland measuring 1.6 x 0.8 cm. LEFT adrenal gland is negative. Right kidney: Cortical cysts are stable. No obstruction. Left kidney: Negative. Aorta: Mild atherosclerosis of the aorta. Celiac axis and the SMA are patent. Lymphadenopathy: Extensive mesenteric and omental implants are reidentified. Implant superior to the spleen measures 4.9 x 4.1 cm. This implant has increased in size. Additional nodules involving the om entum bilaterally all appear to have increased in size. There is a large confluent soft tissue implan t in the pelvis measuring 13.8 cm transversely by 3.0 cm anterior posterior. Additional numerous diff use implants. These implants have not significantly improved. No obstruction of the GI tract. Several of the implants especially within the RIGHT lower quadrant are inseparable from the colon and may ac tually be invading but at this time no obstruction. Free fluid: There is a large fluid collection in the central peritoneal cavity which is encapsulated with an enhancing rim. There is no air. The free flowing ascites that was described on the prior stud y is no longer evident. There are multiple small fluid collections in the pelvis with enhancing rims. The largest in the central abdomen measures 17.8 x 11.3 cm. GI tract: No GI tract obstruction. Numerous implants are closely associated with the small bowel and colon. Abdominal wall: Unremarkable abdominal wall. No hernia. Pelvis: Extensive soft tissue implants are noted within the pelvis. There are multiple small cystic a reas which may be encapsulated ascites. With the wall enhancement peritonitis should be considered. Bones: No destructive process. CT/CT abdomen pelvis w con* [id number] IMPRESSION: 1. No significant improvement in the omental and mesenteric implants consisten t with peritoneal carcinomatosis. Majority of the implants have increased in si ze. 2. The ascites has decreased but now there are multiple loculated peripherally enhancing fluid collections within the mesentery and pelvis. Peritonitis shoul d be considered. The enhancement may be due to the carcinomatosis. 3. There is a small subhepatic fluid collection with peripherally enhancing wa ll. 4. New tiny mesenteric implants along the medial surface RIGHT lobe of the felicitas er and a new nodule in the RIGHT adrenal gland suspicious for metastatic diseas e. 5. Small layering LEFT pleural effusion.
[2021-12-27] MEDS: iohexol 300 mg/mL 100 mL Btl IV (11:01)
[2021-12-27] MEDS: iohexol 300 mg/mL 50 mL Btl IV (11:02)
[2021-12-29 09:16] LABS: Basophils % 0.3 %; Hematocrit 31.4 % (37.0-47.0); Hemoglobin 9.6 g/dL (11.5-15.3); Lymphocytes # 0.5 10^3/uL (0.8-4.8); Lymphocytes % 12.4 %; Mean Corpuscular HGB Conc 30.6 g/dL (30.0-36.0); Mean Corpuscular Volume 91.5 fl (81-99); Mean Platelet Volume 8.9 fL (7.4-10.4); Monocytes # 0.1 10^3/uL (0.2-0.9); Monocytes % 1.4 %; Neutrophils # 3.15 10^3/uL (1.8-7.7); Neutrophils % 85.1 %; Nucleated Red Blood Cells % 0 %; Platelet Count 572 10^3/cmm (130-400); Red Blood Count 3.43 10^6/uL (4.1-5.3); White Blood Count 3.7 10^3/uL (4.0-10.0)
[2021-12-29 09:41] LABS: Alanine Aminotransferase 8 U/L (0-33); Albumin Level 3.8 g/dL (3.5-5.2); Alkaline Phosphatase 129 IU/L (35-105); Anion Gap 16.9 (5-19); Aspartate Amino Transferase 17 U/L (0-32); Blood Urea Nitrogen 15 mg/dL (6-20); CA 125 118.5 U/mL (0-35); Calcium 10.3 mg/dL (8.5-10.5); Carbon Dioxide 24 mmol/L (22-29); Chloride 96 mmol/L (98-107); Globulin 5.1 g/dL (1.3-4.6); Glomerular Filtration Rate 86.2 mL/min (90-130); Glucose 168 mg/dL (65-115); Osmolality Calculated 279 mOsm/kg (285-295); Potassium 4.9 mmol/L (3.5-5.1); Sodium 132 mmol/L (136-145); Total Bilirubin 0.3 mg/dL (0.15-1.2); Total Protein 8.9 g/dL (6.6-8.7)
[2021-12-29] MEDS: sodium chloride 0.9% 250 ML 75 ML IV (10:40)
[2021-12-29] MEDS: diphenhydrAMINE 50 mg/mL SDV 1mL 25 MG IV (11:35)
[2021-12-29] MEDS: famotidine 20 mg/2 mL INJ IVP (11:37)
[2021-12-29] MEDS: palonosetron 0.25 mg/5 mL SDV IV (11:40)
[2021-12-29] MEDS: fosaprepitant 150 MG in sodium chloride 0.9% 150 ML 300 MG IV (12:05)
[2022-01-05 10:26] LABS: Basophils # 0.1 10^3/uL (0.0-0.1); Basophils % 1.4 %; Eosinophils % 0.6 %; Hematocrit 30.2 % (37.0-47.0); Hemoglobin 9.1 g/dL (11.5-15.3); Lymphocytes # 1.2 10^3/uL (0.8-4.8); Lymphocytes % 32.6 %; Mean Corpuscular HGB Conc 30.1 g/dL (30.0-36.0); Mean Corpuscular Hemoglobin 28.3 pg (28.0-34.0); Mean Corpuscular Volume 93.8 fl (81-99); Monocytes # 0.3 10^3/uL (0.2-0.9); Neutrophils # 2.06 10^3/uL (1.8-7.7); Neutrophils % 56.8 %; Nucleated Red Blood Cells % 0 %; Platelet Count 367 10^3/cmm (130-400); Red Blood Count 3.22 10^6/uL (4.1-5.3); Red Cell Distribution Width 17.1 % (12.1-15.1); White Blood Count 3.6 10^3/uL (4.0-10.0)
[2022-01-05 10:48] LABS: Alanine Aminotransferase 13 U/L (0-33); Albumin Level 3.6 g/dL (3.5-5.2); Alkaline Phosphatase 120 IU/L (35-105); Anion Gap 16.7 (5-19); Aspartate Amino Transferase 22 U/L (0-32); Blood Urea Nitrogen 14 mg/dL (6-20); Carbon Dioxide 24 mmol/L (22-29); Chloride 97 mmol/L (98-107); Globulin 3.9 g/dL (1.3-4.6); Glomerular Filtration Rate 127.2 mL/min (90-130); Glucose 91 mg/dL (65-115); Osmolality Calculated 278 mOsm/kg (285-295); Potassium 3.7 mmol/L (3.5-5.1); Sodium 134 mmol/L (136-145); Total Bilirubin 0.2 mg/dL (0.15-1.2); Total Protein 7.5 g/dL (6.6-8.7)
--- NOTE | 2022-01-05 20:38 | ONC FU_ITS ---
Eulalia Cam Progress Note Patient: Genny Diaz Unit #: [id number]: 1965 Dicatated By: Eulalia Cam N.P.Date of Visit:Dec 29, 2021 Onc MED Follow-up/Prog Note Chief Complaint: Ovarian cancer. History of Present Illness: This is a 56-year-old woman with advanced ovarian carcinoma, presenting with CT evidence of peritoneal carcinomatosis. She had presented to Dr. Farris with abdominal swelling and postprandial abdominal discomfort. An abdominal ultrasound on 10/25/2021 showed hepatomegaly with coarsened echogenicity. A nodular area of differential echogenicity was noted in the left hepatic lobe measuring 4.3 x 5.4 cm. There was no hydronephrosis noted. There was mild ascites estimated at 1300 mL. Pelvic ultrasound showed a cystic lesion in the right ovary measuring 5.0 x 4.0 x 3.7 cm and containing internal debris. The left ovary was not well visualized. A small amount of free fluid was noted in the cul-de-sac. Further evaluation with CT of the abdomen/pelvis on 10/26/2021 showed extensive bulky peritoneal carcinomatosis compatible with metastatic disease involving the ventral abdominal peritoneum and pelvis. A prominent metastatic implant was noted in the left upper quadrant measuring 4.7 x 3.1 cm with an additional notable metastatic implant in the left lower quadrant measuring 3.8 x 4.7 cm. A cystic lesion in the midline pelvis measuring 4.2 x 4.6 cm with eccentric mural nodularity was felt to likely represent the a cystic ovarian lesion seen on the ultrasound. There was diffuse bulky rectal wall thickening possibly representing primary neoplasm versus metastatic disease. There was mild to moderate abdominal ascites and there was a small left pleural effusion. There was diffuse fatty infiltration of the liver with no evidence for focal liver lesions. She underwent CT directed biopsy of the omental mass on 11/04/2021. Pathology ultimately came back showing metastatic adenocarcinoma consistent with ovarian primary, most suggestive of serous cell carcinoma. The tumor was strongly positive for CA-125 and for Sammy-EP4. ER was positive at 100%, but [place] was negative and the tumor was also negative for overexpression of HER-2/rolando. However, in the meantime, the day following the biopsy she was admitted to the hospital with nausea/vomiting in association with worsening abdominal pain. She had clinical evidence of septic shock, and her blood cultures subsequently grew Clostridium perfringens. She also was found to have COVID-19 virus infection. She had a complicated clinical course which included acute renal failure and acute respiratory failure, but with antibiotic therapy and supportive treatment measures she did show gradual improvement, including complete recovery of her renal function. During the hospitalization she underwent paracentesis on several occasions, and her peritoneal fluid cytology was positive for metastatic adenocarcinoma consistent with ovarian primary. Her initial CT scans also had shown left pleural effusion with left lower lobe atelectasis. She did not have any pleural fluid sampling. I had seen her for consultation as an inpatient, and I had conferred with one of the [facility] [employer] oncologists in [place]. The recommendation was to proceed with neoadjuvant chemotherapy and to reassess for debulking surgery after 3 cycles. On 11/17/2021 she began cycle 1 of carboplatin/paclitaxel administered through a PICC line in the right arm. She tolerated that treatment without acute toxicity. She was able to be discharged home on 11/19/2021. Her other medical illnesses include hypertension, migraine headaches, psoriasis, and depression. Prior surgeries have been limited to cholecystectomy and tubal ligation. She is a non-smoker. Family history is significant in that her mother had been treated for colon cancer, but she apparently had a suspected [employer] malignancy at the time of her at age 87. INTERIM HISTORY: During subsequent outpatient follow-up she did begin to show some clinical improvement, though she continued to have marginal performance status and she did require PRBC transfusion on 11/22/2021 and again on 11/26/2021. She was able to proceed with cycle 2 of carboplatin/paclitaxel on 12/08/2021. Patient presents today for follow-up. She states she seems to feel a little stronger although she still has generalized weakness. Her ECOG is 2. She still does not have much of an appetite but she is trying to eat a little. She denies fever, chills, night sweats. No shortness of breath or chest pain. The hospital-acquired decubitus that she has on her sacral area is improving. She is followed by wound care for that. Review Of Symptoms: see above Past Medical History: Depression Hypertension Migraine headaches Psoriasis Past Surgical History: Cholecystectomy in 2011 Tubal ligation in 1995 Allergies: No Known Allergies. Medications: Amitriptyline HCl 1 Tablet (of 25 mg) Oral at bedtime fentaNYL Patch 72 Hr Transdermal PRN FLUoxetine HCl 1 Capsule (of 40 mg) Oral daily oxyCODONE HCl (10 mg) Tablet Oral Take as Directed Family History: Father with an aortic aneurysm at around age 80. Her mother at age 88. At the time they suspected a [employer] cancer. She had previous treatment for colon cancer and superficial bladder cancer. A brother of a head/neck cancer at age 67. Social History: Ms. Diaz is . Ms. Diaz has never smoked. She has no history of drinking. She has a non-smoker. She does not drink alcohol. Physical Examination: Performed on Dec 29, 2021 10:25: Height - 63.00 in, Weight - 140.8 lbs (LOW), BSA - 1.67 sq.m, BMI - 24.94, Temperature - 98.3 F (LOW), Pulse - 110 /min (HIGH), Respiration - 16 /min, BP - 129/77 mm(hg), O2 Sat - 95 % (LOW), Pain - 0, and Fatigue - 2. Performance Status: 2 - Ambulatory/capable of all self-care, unable to perform any work activities. Up and about more than 50% of waking hours. (ECOG) Constitutional Alert, cooperative, oriented. Mood and affect appropriate. Appears close to chronological age. Well nourished. Well developed. Head Normocephalic; no scars. Respiratory Lungs are clear to auscultation without rhonchi or wheezing. Cardiovascular Regular rate and rhythm of heart without murmurs, gallops or rubs. Abdomen Lower abdominal tenderness. bowel sounds positive. Extremities No edema Musculoskeletal No tenderness or swelling, normal range of motion without obvious weakness. Psychiatric Alert and oriented times three. Coherent speech. Verbalizes understanding of our discussions today. Laboratory: Test performed on Dec 29, 2021 08:55 Sodium 132 mmol/L Potassium 4.9 mmol/L Chloride 96 mmol/L CO2 24 mmol/L Anion Gap 16.9 BUN 15 mg/dL Creatinine 0.7 mg/dL Cr Clearance (Est) 89.40 mL/min eGFR 86.2 mL/min Glucose 168 mg/dL Osmolality - Calculated 279 mOsm/kg Calcium 10.3 mg/dL Protein, Total 8.9 g/dL Albumin 3.8 g/dL Globulin 5.1 g/dL Bilirubin, Total 0.3 mg/dL ALT (SGPT) 8 U/L AST (SGOT) 17 U/L Alkaline Phosphatase 129 IU/L WBC 3.7 10 3/uL RBC 3.43 10 6/uL HGB 9.6 g/dL HCT 31.4 % MCV 91.5 fl MCH 28.0 pg MCHC 30.6 g/dL RDW 18.0 % Platelet Count 572 10 3/cmm MPV 8.9 fL Neutrophils 3.15 10 3/uL Lymphocytes 0.5 10 3/uL Monocytes 0.1 10 3/uL Eosinophils 0.0 10 3/uL Basophils 0.0 10 3/uL Neutrophil % 85.1 % Lymphocyte % 12.4 % Monocyte % 1.4 % Eosinophil % 0.0 % Basophils % 0.3 % NRBC % 0 % Anti-D Positive Blood Type OP Antibody Screen (Gel) NEGATIVE CA-125 118.5 U/mL Test performed on Dec 15, 2021 12:10 Leukocyte Reduced RBC [id number] OP RCLR XM COMPATIBLE Test performed on Dec 15, 2021 10:26 Ua Color Yellow Ua Appearance Clear Ua Glucose Trace Ua Bilirubin 1+ Ua Ketones Negative Ua Specific [place] 1.015 Ua Blood 2+ Ua pH 6 Ua Protein 1+ Ua Urobilinogen 1 mg/dL Ua Nitrites Negative Ua Leukocyte Esterase Negative Ua Micro: WBC 10-15 /hpf Urine Culture 20,000-30,000 COLS/ML MIXED SUPERFICIAL MANJU ON DAY 2 Ua Micro: RBC 5-10 /hpf Ua Micro: Squam Epith Cells 5-10 /hpf Ua Micro: Bacteria 2+ /hpf Ua Micro: Mucous 2+ /hpf Test performed on Nov 22, 2021 10:30 Iron 52 mcg/dL Iron Binding Capacity (TIBC) 189 mcg/dl % Iron Saturation 27.5 % UIBC 137 mcg/dL ABO & Rh Type # 2 OP Test performed on Nov 22, 2021 00:00 Manual Diff DT Impression: 1. 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 2. Hypertension. 3. History of chronic migraine. 4. Psoriasis. 5. Depression. Plan: Patient with metastatic adenocarcinoma consistent with ovarian primary, most suggestive of serous cell carcinoma. She had presented with CT evidence of extensive peritoneal carcinomatosis. The diagnosis was confirmed by CT directed biopsy of omental mass. She had positive peritoneal fluid cytology. There was also associated left pleural effusion, but she had no pleural fluid sampling. As such, her disease is stage at least IIIC, but likely stage ELAN. Her clinical course was complicated by septic shock due to Clostridium perfringens and at the same time she also had COVID-19 virus infection. She developed acute renal failure and acute respiratory failure, but on antibiotic therapy she did show gradual recovery, including normalization of her renal function. On 11/17/2021 she began cycle 1 of neoadjuvant chemotherapy with carboplatin/paclitaxel administered through a PICC line in the right arm. She tolerated the treatment without acute toxicity. During subsequent outpatient follow-up she continued to have poor performance status, though she did begin to show some clinical improvement. She required PRBC transfusion on 11/22/2021 and again on 11/26/2021. She was able to proceed with cycle 2 of carboplatin/paclitaxel on 12/08/2021. She once again became severely anemic and was transfused with PRBCs on 12/16/2021. Clinically she is doing much better since the start of her chemotherapy treatment. Her CA 125 has decreased from 909 two 118.5. Referral will be placed to Dr. Cortez's office [facility] oncology. Dr. Amor has already spoken to Dr. Cortez's associate concerning the patient. Caris report was discussed with the patient and her and at this point there are no treatable biomarkers. She continues to be followed by Dr. Bahena in wound care for the decubitus ulcer on her sacral area. She will receive cycle 3 of carbo [place] and paclitaxel today. She will return to the clinic in 1 week with CBC and CMP Signed By: Eulalia Cam N.P. <<Signature on File>>
--- NOTE | 2022-01-09 20:25 | ONC FU_ITS ---
Eulalia Cam Progress Note Patient: Genny Diaz Unit #: [id number]: 1965 Dicatated By: Eulalia Cam N.P.Date of Visit:Jan 05, 2022 Onc MED Follow-up/Prog Note Chief Complaint: Ovarian cancer. History of Present Illness: This is a 56-year-old woman with advanced ovarian carcinoma, presenting with CT evidence of peritoneal carcinomatosis. She had presented to Dr. Farris with abdominal swelling and postprandial abdominal discomfort. An abdominal ultrasound on 10/25/2021 showed hepatomegaly with coarsened echogenicity. A nodular area of differential echogenicity was noted in the left hepatic lobe measuring 4.3 x 5.4 cm. There was no hydronephrosis noted. There was mild ascites estimated at 1300 mL. Pelvic ultrasound showed a cystic lesion in the right ovary measuring 5.0 x 4.0 x 3.7 cm and containing internal debris. The left ovary was not well visualized. A small amount of free fluid was noted in the cul-de-sac. Further evaluation with CT of the abdomen/pelvis on 10/26/2021 showed extensive bulky peritoneal carcinomatosis compatible with metastatic disease involving the ventral abdominal peritoneum and pelvis. A prominent metastatic implant was noted in the left upper quadrant measuring 4.7 x 3.1 cm with an additional notable metastatic implant in the left lower quadrant measuring 3.8 x 4.7 cm. A cystic lesion in the midline pelvis measuring 4.2 x 4.6 cm with eccentric mural nodularity was felt to likely represent the a cystic ovarian lesion seen on the ultrasound. There was diffuse bulky rectal wall thickening possibly representing primary neoplasm versus metastatic disease. There was mild to moderate abdominal ascites and there was a small left pleural effusion. There was diffuse fatty infiltration of the liver with no evidence for focal liver lesions. She underwent CT directed biopsy of the omental mass on 11/04/2021. Pathology ultimately came back showing metastatic adenocarcinoma consistent with ovarian primary, most suggestive of serous cell carcinoma. The tumor was strongly positive for CA-125 and for Sammy-EP4. ER was positive at 100%, but [place] was negative and the tumor was also negative for overexpression of HER-2/rolando. However, in the meantime, the day following the biopsy she was admitted to the hospital with nausea/vomiting in association with worsening abdominal pain. She had clinical evidence of septic shock, and her blood cultures subsequently grew Clostridium perfringens. She also was found to have COVID-19 virus infection. She had a complicated clinical course which included acute renal failure and acute respiratory failure, but with antibiotic therapy and supportive treatment measures she did show gradual improvement, including complete recovery of her renal function. During the hospitalization she underwent paracentesis on several occasions, and her peritoneal fluid cytology was positive for metastatic adenocarcinoma consistent with ovarian primary. Her initial CT scans also had shown left pleural effusion with left lower lobe atelectasis. She did not have any pleural fluid sampling. Dr. Amor had seen her for consultation as an inpatient, and I had conferred with one of the [facility] [employer] [facility] oncologists in [place]. The recommendation was to proceed with neoadjuvant chemotherapy and to reassess for debulking surgery after 3 cycles. On 11/17/2021 she began cycle 1 of carboplatin/paclitaxel administered through a PICC line in the right arm. She tolerated that treatment without acute toxicity. She was able to be discharged home on 11/19/2021. Her other medical illnesses include hypertension, migraine headaches, psoriasis, and depression. Prior surgeries have been limited to cholecystectomy and tubal ligation. She is a non-smoker. Family history is significant in that her mother had been treated for colon cancer, but she apparently had a suspected [employer] malignancy at the time of her at age 87. INTERIM HISTORY: During subsequent outpatient follow-up she did begin to show some clinical improvement, though she continued to have marginal performance status and she did require PRBC transfusion on 11/22/2021 and again on 11/26/2021. She was able to proceed with cycle 2 of carboplatin/paclitaxel on 12/08/2021. Patient presents today accompanied by her for follow-up. She is having somewhat increased fatigue and does not appear to feel as well today as she did last week. She has been using the Duragesic patch for pain following her chemotherapy treatments which has been effective. Since pain is slightly improved she is going to try to discontinue the Duragesic patch and use her oral medications for pain control. She states her appetite has not been very good but she is trying to eat. She has some nausea but it is controlled with her nausea medications. She denies shortness of breath, cough, chest pain. No mouth sores or sinus drainage. No urinary symptoms. No joint or bone pain. No headaches or dizziness. The wound on her sacral area is improving and she is followed by wound care management for that. Review Of Symptoms: See above. Past Medical History: Depression Hypertension Migraine headaches Psoriasis Past Surgical History: Cholecystectomy in 2011 Tubal ligation in 1995 Allergies: No Known Allergies. Medications: Amitriptyline HCl 1 Tablet (of 25 mg) Oral at bedtime fentaNYL Patch 72 Hr Transdermal PRN FLUoxetine HCl 1 Capsule (of 40 mg) Oral daily oxyCODONE HCl (10 mg) Tablet Oral Take as Directed Family History: Father with an aortic aneurysm at around age 80. Her mother at age 88. At the time they suspected a [employer] cancer. She had previous treatment for colon cancer and superficial bladder cancer. A brother of a head/neck cancer at age 67. Social History: Ms. Diaz is . Ms. Diaz has never smoked. She has no history of drinking. She has a non-smoker. She does not drink alcohol. Physical Examination: Performed on Jan 05, 2022 15:18: Height - 63.00 in, Weight - 139.4 lbs (LOW), BSA - 1.66 sq.m, BMI - 24.69, Temperature - 97.8 F (LOW), Pulse - 98 /min, Respiration - 16 /min, BP - 131/86 mm(hg), O2 Sat - 97 %, Pain - 0, and Fatigue - 3. Performance Status: 2 - Ambulatory/capable of all self-care, unable to perform any work activities. Up and about more than 50% of waking hours. (ECOG) Constitutional Alert, cooperative, oriented. Mood and affect appropriate. Appears close to chronological age. Appears fatigued and weak. Head Normocephalic; no scars. Respiratory Lungs are clear to auscultation without rhonchi or wheezing. Cardiovascular Regular rate and rhythm of heart without murmurs, gallops or rubs. Abdomen Non-tender, non-distended, no masses, ascites or hepatosplenomegaly. Good bowel sounds. No guarding or rebound tenderness. Gastrointestinal Bowel sounds positive. Tenderness in suprapubic area. Extremities No edema Musculoskeletal No tenderness or swelling, normal range of motion without obvious weakness. Psychiatric Alert and oriented times three. Coherent speech. Verbalizes understanding of our discussions today. Laboratory: Test performed on Jan 05, 2022 10:15 Sodium 134 mmol/L Potassium 3.7 mmol/L Chloride 97 mmol/L CO2 24 mmol/L Anion Gap 16.7 BUN 14 mg/dL Creatinine 0.5 mg/dL Cr Clearance (Est) 125.1600 mL/min eGFR 127.2 mL/min Glucose 91 mg/dL Osmolality - Calculated 278 mOsm/kg Calcium 10.0 mg/dL Protein, Total 7.5 g/dL Albumin 3.6 g/dL Globulin 3.9 g/dL Bilirubin, Total 0.2 mg/dL ALT (SGPT) 13 U/L AST (SGOT) 22 U/L Alkaline Phosphatase 120 IU/L WBC 3.6 10 3/uL RBC 3.22 10 6/uL HGB 9.1 g/dL HCT 30.2 % MCV 93.8 fl MCH 28.3 pg MCHC 30.1 g/dL RDW 17.1 % Platelet Count 367 10 3/cmm MPV 9.0 fL Neutrophils 2.06 10 3/uL Lymphocytes 1.2 10 3/uL Monocytes 0.3 10 3/uL Eosinophils 0.0 10 3/uL Basophils 0.1 10 3/uL Neutrophil % 56.8 % Lymphocyte % 32.6 % Monocyte % 8.0 % Eosinophil % 0.6 % Basophils % 1.4 % NRBC % 0 % Test performed on Dec 29, 2021 08:55 Anti-D Positive Blood Type OP Antibody Screen (Gel) NEGATIVE CA-125 118.5 U/mL Test performed on Dec 15, 2021 12:10 Leukocyte Reduced RBC [id number] OP RCLR XM COMPATIBLE Test performed on Dec 15, 2021 10:26 Ua Color Yellow Ua Appearance Clear Ua Glucose Trace Ua Bilirubin 1+ Ua Ketones Negative Ua Specific [place] 1.015 Ua Blood 2+ Ua pH 6 Ua Protein 1+ Ua Urobilinogen 1 mg/dL Ua Nitrites Negative Ua Leukocyte Esterase Negative Ua Micro: WBC 10-15 /hpf Urine Culture 20,000-30,000 COLS/ML MIXED SUPERFICIAL MANJU ON DAY 2 Ua Micro: RBC 5-10 /hpf Ua Micro: Squam Epith Cells 5-10 /hpf Ua Micro: Bacteria 2+ /hpf Ua Micro: Mucous 2+ /hpf Test performed on Nov 22, 2021 10:30 Iron 52 mcg/dL Iron Binding Capacity (TIBC) 189 mcg/dl % Iron Saturation 27.5 % UIBC 137 mcg/dL ABO & Rh Type # 2 OP Test performed on Nov 22, 2021 00:00 Manual Diff DT Impression: 1. 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 2. Hypertension. 3. History of chronic migraine. 4. Psoriasis. 5. Depression. Plan: Patient with metastatic adenocarcinoma consistent with ovarian primary, most suggestive of serous cell carcinoma. She had presented with CT evidence of extensive peritoneal carcinomatosis. The diagnosis was confirmed by CT directed biopsy of omental mass. She had positive peritoneal fluid cytology. There was also associated left pleural effusion, but she had no pleural fluid sampling. As such, her disease is stage at least IIIC, but likely stage ELAN. Her clinical course was complicated by septic shock due to Clostridium perfringens and at the same time she also had COVID-19 virus infection. She developed acute renal failure and acute respiratory failure, but on antibiotic therapy she did show gradual recovery, including normalization of her renal function. On 11/17/2021 she began cycle 1 of neoadjuvant chemotherapy with carboplatin/paclitaxel administered through a PICC line in the right arm. She tolerated the treatment without acute toxicity. During subsequent outpatient follow-up she continued to have poor performance status, though she did begin to show some clinical improvement. She required PRBC transfusion on 11/22/2021 and again on 11/26/2021. She was able to proceed with cycle 2 of paclitaxel/paclitaxel on 12/08/2021. She once again became severely anemic and was transfused with PRBCs on 12/16/2021. Clinically patient is stable today. She states she is more tired today and appears to be so. She has been using Duragesic patch for bilateral leg pain and lower abdominal pain associated with chemotherapy treatments. The Duragesic patch worked well to control her pain. She is going to remove the patch today and try to resume oral pain medications. She will return to the clinic in 2 weeks for cycle 4 of carboplatin and paclitaxel if CBC and CMP are stable. We will also recheck a CA-125. She continues to be followed by Dr. Bahena in wound care for the decubitus ulcer on her sacral area. Signed By: Eulalia Cam N.P. <<Signature on File>>
== END 2022-01-06 23:59 | disposition home or self-care (01) ==
LOC: ONCMED 06:48
PROVIDERS: Internal Medicine Medical Oncology; PCP Internal Medicine; Visit Provider Nurse Practitioner Family
DX: Z51.11 Encounter for antineoplastic chemotherapy (principal); C56.3 Malignant neoplasm of bilateral ovaries; C78.6 Secondary malignant neoplasm of retroperitoneum and peritoneum; J90 Pleural effusion, not elsewhere classified; I10 Essential (primary) hypertension; L40.9 Psoriasis, unspecified; F32.A Depression, unspecified; Z86.59 Personal history of other mental and behavioral disorders; Z79.899 Other long term (current) drug therapy
CPT/HCPCS: 36415; 36591; 36593; 74177; 80053; 85025; 86304; 86850; 86900; 96367; 96375; 96413; 96415; 96417; 99215; J1100; J1200; J1453; J2469; J3490; J7030; J7040; J7050; J9045; J9267; Q9967

== ENCOUNTER 2022-02-01 06:45 | Outpatient (RCR) | payer OTHER, SELFPAY ==
[2022-01-19 09:42] LABS: Basophils % 0.3 %; Hematocrit 29.4 % (37.0-47.0); Lymphocytes # 0.3 10^3/uL (0.8-4.8); Lymphocytes % 10.5 %; Mean Corpuscular HGB Conc 30.6 g/dL (30.0-36.0); Mean Corpuscular Hemoglobin 29.1 pg (28.0-34.0); Mean Corpuscular Volume 95.1 fl (81-99); Mean Platelet Volume 9.6 fL (7.4-10.4); Monocytes % 0.6 %; Neutrophils # 2.76 10^3/uL (1.8-7.7); Neutrophils % 88.3 %; Nucleated Red Blood Cells % 0 %; Platelet Count 213 10^3/cmm (130-400); Red Blood Count 3.09 10^6/uL (4.1-5.3); Red Cell Distribution Width 19.8 % (12.1-15.1); White Blood Count 3.1 10^3/uL (4.0-10.0)
[2022-01-19 10:04] LABS: Alanine Aminotransferase 6 U/L (0-33); Albumin Level 3.6 g/dL (3.5-5.2); Alkaline Phosphatase 102 IU/L (35-105); Anion Gap 17.4 (5-19); Aspartate Amino Transferase 12 U/L (0-32); Blood Urea Nitrogen 9 mg/dL (6-20); CA 125 89.2 U/mL (0-35); Calcium 9.6 mg/dL (8.5-10.5); Carbon Dioxide 24 mmol/L (22-29); Chloride 100 mmol/L (98-107); Globulin 4.3 g/dL (1.3-4.6); Glucose 181 mg/dL (65-115); Osmolality Calculated 287 mOsm/kg (285-295); Potassium 4.4 mmol/L (3.5-5.1); Sodium 137 mmol/L (136-145); Total Bilirubin 0.3 mg/dL (0.15-1.2); Total Protein 7.9 g/dL (6.6-8.7)
[2022-01-19 10:05] LABS: Slide Review Slide Review Perform
[2022-01-19] MEDS: sodium chloride 0.9% 250 ML 75 ML IV (11:36)
[2022-01-19] MEDS: famotidine 20 mg/2 mL INJ IVP (11:36)
[2022-01-19] MEDS: diphenhydrAMINE 50 mg/mL SDV 1mL 25 MG IV (11:40)
[2022-01-19] MEDS: palonosetron 0.25 mg/5 mL SDV IV (11:45)
[2022-01-19] MEDS: fosaprepitant 150 MG in sodium chloride 0.9% 150 ML 300 MG IV (12:09)
[2022-01-19] MEDS: sodium chloride 0.9% 250 ML 200 ML IV (16:00)
--- NOTE | 2022-01-20 07:47 | ONC FU_ITS ---
Dr. Amor Patient Follow-Up Note Patient: Genny Diaz Unit #: [id number]: 1965 Dicatated By: Tristan Amor M.D.Date of Visit:Jan 19, 2022 Onc Med Follow-up/Prog Note Chief Complaint: Ovarian cancer. History of Present Illness: This is a 56-year-old woman with advanced ovarian carcinoma, presenting with CT evidence of peritoneal carcinomatosis. She had presented to Dr. Farris with abdominal swelling and postprandial abdominal discomfort. An abdominal ultrasound on 10/25/2021 showed hepatomegaly with coarsened echogenicity. A nodular area of differential echogenicity was noted in the left hepatic lobe measuring 4.3 x 5.4 cm. There was no hydronephrosis noted. There was mild ascites estimated at 1300 mL. Pelvic ultrasound showed a cystic lesion in the right ovary measuring 5.0 x 4.0 x 3.7 cm and containing internal debris. The left ovary was not well visualized. A small amount of free fluid was noted in the cul-de-sac. Further evaluation with CT of the abdomen/pelvis on 10/26/2021 showed extensive bulky peritoneal carcinomatosis compatible with metastatic disease involving the ventral abdominal peritoneum and pelvis. A prominent metastatic implant was noted in the left upper quadrant measuring 4.7 x 3.1 cm with an additional notable metastatic implant in the left lower quadrant measuring 3.8 x 4.7 cm. A cystic lesion in the midline pelvis measuring 4.2 x 4.6 cm with eccentric mural nodularity was felt to likely represent the a cystic ovarian lesion seen on the ultrasound. There was diffuse bulky rectal wall thickening possibly representing primary neoplasm versus metastatic disease. There was mild to moderate abdominal ascites and there was a small left pleural effusion. There was diffuse fatty infiltration of the liver with no evidence for focal liver lesions. She underwent CT directed biopsy of the omental mass on 11/04/2021. Pathology ultimately came back showing metastatic adenocarcinoma consistent with ovarian primary, most suggestive of serous cell carcinoma. The tumor was strongly positive for CA-125 and for Sammy-EP4. ER was positive at 100%, but CO was negative and the tumor was also negative for overexpression of HER-2/rolando. However, in the meantime, the day following the biopsy she was admitted to the hospital with nausea/vomiting in association with worsening abdominal pain. She had clinical evidence of septic shock, and her blood cultures subsequently grew Clostridium perfringens. She also was found to have COVID-19 virus infection. She had a complicated clinical course which included acute renal failure and acute respiratory failure, but with antibiotic therapy and supportive treatment measures she did show gradual improvement, including complete recovery of her renal function. During the hospitalization she underwent paracentesis on several occasions, and her peritoneal fluid cytology was positive for metastatic adenocarcinoma consistent with ovarian primary. Her initial CT scans also had shown left pleural effusion with left lower lobe atelectasis. She did not have any pleural fluid sampling. I had seen her for consultation as an inpatient, and I had conferred with one of the [employer] oncologists in [place]. The recommendation was to proceed with neoadjuvant chemotherapy and to reassess for debulking surgery after 3 cycles. On 11/17/2021 she began cycle 1 of carboplatin/paclitaxel administered through a PICC line in the right arm. She tolerated that treatment without acute toxicity. She was able to be discharged home on 11/19/2021. Her other medical illnesses include hypertension, migraine headaches, psoriasis, and depression. Prior surgeries have been limited to cholecystectomy and tubal ligation. She is a non-smoker. 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 INTERIM HISTORY: During subsequent outpatient follow-up she did begin to show some clinical improvement, though she continued to have marginal performance status and she did require PRBC transfusion on 11/22/2021 and again on 11/26/2021. She was able to proceed with cycle 2 of carboplatin/paclitaxel on 12/08/2021. Restaging CT of the abdomen/pelvis on 12/27/2021 showed decrease in the ascites, but there was no significant improvement noted in the omental and mesenteric implants. The majority were noted to have increased in size. There were multiple loculated peripherally enhancing fluid collections within the mesentery and pelvis, felt to be somewhat suspicious for peritonitis versus peritoneal carcinomatosis. Also noted was a small subhepatic fluid collection with peripheral enhancement. New tiny mesenteric implants were noted along the medial right surface of the liver and a new nodule in the right adrenal gland was felt to be suspicious for metastatic disease. There was just a small layering left pleural effusion. She was seen for a follow-up visit on 12/29/2021. Despite the CT findings, there had been a significant decrease in her CA-125, from a pretreatment level of 909.0 U/mL to 118.5 U/mL. She was continuing to show some clinical improvement, but she had developed a fairly large decubitus skin ulceration in the left gluteal area. With the significant decline in her tumor marker, I opted to have her continue with cycle 3 of carboplatin/paclitaxel. She also continued follow-up with Dr. Thacker for wound care management. She is seen for a follow-up visit. She has been feeling a little better generally. She is now doing some light housework, and she has also been able to do some walking. ECOG score is 1. Appetite also is getting better. She recently has gained a little weight, but she is still significantly down from normal. She has not had fever. She occasionally has a little sweating at night. She has not had sore mouth or throat. She does not complain of cough, and she has not been having shortness of breath or chest pain. She currently has no GI or complaints. She has been getting pretty significant pain in her lower back and legs starting at about day 3 of her treatment and lasting for several days. She has been able to manage that pain adequately with a combination of fentanyl and immediate release oxycodone. She has now having to use the fentanyl only during those few days when she has that pain. She is not having numbness/paresthesia or other obvious neuropathy symptoms. Recently she has had a couple of headaches. Medications: Amitriptyline HCl 1 Tablet (of 25 mg) Oral at bedtime, Dexamethasone (4 mg) Tablet Oral Take as Directed, fentaNYL Patch 72 Hr Transdermal PRN, FLUoxetine HCl 1 Capsule (of 40 mg) Oral daily, oxyCODONE HCl (10 mg) Tablet Oral Take as Directed Allergies: No Known Allergies. Vital Signs: Performed on Jan 19, 2022 10:39 Height - 63.00 in Weight - 145.4 lbs (HIGH) BSA - 1.69 sq.m BMI - 25.76 Temperature - 97.6 F (LOW) Pulse - 101 /min (HIGH) Respiration - 16 /min BP - 137/89 mm(hg) O2 Sat - 98 % Pain - 4 Fatigue - 4 Physical Examination: Constitutional - She looks better, though she still appears somewhat weak generally, Eyes - Sclerae nonicteric. Conjunctivae clear, ENMT - No lesions noted in the oral cavity, Hematologic/Lymphatic - No cervical, clavicular, or axillary adenopathy, Respiratory - Lungs sound clear, Cardiovascular - Heart rhythm is regular. There is a II/ systolic murmur. There is no gallop or rub noted, Abdomen - Less distended but slightly firm. Liver and spleen are not enlarged. There is no abdominal mass noted. There is no obvious ascites. There is no inguinal adenopathy, Extremities - No edema, Integumentary - There has been significant healing of the left gluteal decubitus skin ulceration, Neurologic - No focal neurologic deficits noted. Lab/Imaging: Test performed on Jan 19, 2022 10:33 Creatinine 0.6 mg/dL Cr Clearance (Est) 104.30 mL/min Test performed on Jan 19, 2022 09:21 Sodium 137 mmol/L Potassium 4.4 mmol/L Chloride 100 mmol/L CO2 24 mmol/L Anion Gap 17.4 BUN 9 mg/dL eGFR 103.0 mL/min Glucose 181 mg/dL Osmolality - Calculated 287 mOsm/kg Calcium 9.6 mg/dL Protein, Total 7.9 g/dL Albumin 3.6 g/dL Globulin 4.3 g/dL Bilirubin, Total 0.3 mg/dL ALT (SGPT) 6 U/L AST (SGOT) 12 U/L Alkaline Phosphatase 102 IU/L WBC 3.1 10 3/uL RBC 3.09 10 6/uL HGB 9.0 g/dL HCT 29.4 % MCV 95.1 fl MCH 29.1 pg MCHC 30.6 g/dL RDW 19.8 % Platelet Count 213 10 3/cmm MPV 9.6 fL Neutrophils 2.76 10 3/uL Lymphocytes 0.3 10 3/uL Monocytes 0.0 10 3/uL Eosinophils 0.0 10 3/uL Basophils 0.0 10 3/uL Neutrophil % 88.3 % Lymphocyte % 10.5 % Monocyte % 0.6 % Eosinophil % 0.0 % Basophils % 0.3 % NRBC % 0 % CBC Slide Review Slide Review Perform SLIDE REVIEW AGREES WITH AUTOMATED RESULTS CA-125 89.2 U/mL Problem List: 1. 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 2. Hypertension. 3. History of chronic migraine. 4. Psoriasis. 5. Depression. Problems Addressed with this Encounter and Plan: Patient with metastatic adenocarcinoma consistent with ovarian primary, most suggestive of serous cell carcinoma. She had presented with CT evidence of extensive peritoneal carcinomatosis. The diagnosis was confirmed by CT directed biopsy of omental mass. She had positive peritoneal fluid cytology. There was also associated left pleural effusion, but she had no pleural fluid sampling. As such, her disease is stage at least IIIC, but likely stage ELAN. Her clinical course was complicated by septic shock due to Clostridium perfringens and at the same time she also had COVID-19 virus infection. She developed acute renal failure and acute respiratory failure, but on antibiotic therapy she did show gradual recovery, including normalization of her renal function. On 11/17/2021 she began cycle 1 of neoadjuvant chemotherapy with carboplatin/paclitaxel administered through a PICC line in the right arm. She tolerated the treatment without acute toxicity. During subsequent outpatient follow-up she continued to have poor performance status, though she did begin to show some clinical improvement. She required PRBC transfusion on 11/22/2021 and again on 11/26/2021. She was able to proceed with cycle 2 of carboplatin/paclitaxel on 12/08/2021. Her further clinical course was complicated by worsening decubitus skin ulceration in the left gluteal area. She was seen by Dr. Thacker for wound care management. Her restaging CT of the abdomen/pelvis on 12/27/2021 reported decreased ascites but she was noted to have worsening mesenteric implants as well as multiple loculated peripherally enhancing fluid collections consistent with peritonitis or peritoneal carcinomatosis. There were some new tiny mesenteric implants noted along the medial surface of the right lobe of the liver and a new nodules noted in the right adrenal gland. Despite those findings, her repeat CA-125 level on 12/29/2021 had declined significantly, from a pretreatment level of 909.0 U/mL to 118.5 U/mL. Given the significant decline in the tumor marker, I opted to have her proceed with cycle 3 of carboplatin/paclitaxel. She continues to show gradual improvement clinically. There has been further decrease in the CA-125 level to 89.2 U/mL. As such, she will proceed now with cycle 4 of carboplatin/paclitaxel. The dosages remain the same. Blood counts will be monitored weekly. I will tentatively plan a follow-up visit in 3 weeks. However, she is now scheduled to have [facility] oncology consultation next week with Dr. Amna Jean and her further management may change depending on those recommendations. Signed By: Tristan Amor M.D. <<Signature on File>>
[2022-01-25 14:59] LABS: Basophils % 0.4 %; Eosinophils % 0.9 %; Hematocrit 25.9 % (37.0-47.0); Hemoglobin 7.9 g/dL (11.5-15.3); Lymphocytes # 0.9 10^3/uL (0.8-4.8); Lymphocytes % 39.7 %; Mean Corpuscular HGB Conc 30.5 g/dL (30.0-36.0); Mean Corpuscular Hemoglobin 28.8 pg (28.0-34.0); Mean Corpuscular Volume 94.5 fl (81-99); Mean Platelet Volume 9.8 fL (7.4-10.4); Monocytes # 0.1 10^3/uL (0.2-0.9); Neutrophils # 1.29 10^3/uL (1.8-7.7); Neutrophils % 55.6 %; Nucleated Red Blood Cells % 0 %; Platelet Count 218 10^3/cmm (130-400); Red Blood Count 2.74 10^6/uL (4.1-5.3); White Blood Count 2.3 10^3/uL (4.0-10.0)
[2022-01-25 15:29] LABS: Slide Review Slide Review Perform
[2022-01-25] MEDS: sodium chloride 0.9% 500 ML 999 ML IV (15:30)
[2022-01-26] VITALS (10 sets, daily range): BP systolic 126–151; BP diastolic 83–94; PULSE 82–96; RESP 16–18; TEMP 37–37.3; O2SAT 95–98
[2022-01-26] MEDS: acetaminophen 325 mg Tablet 650 MG PO (08:33)
[2022-01-26] MEDS: sodium chloride 0.9% 250 ML 999 ML IV (08:33)
[2022-01-26] MEDS: diphenhydrAMINE 25 mg Capsule PO (08:33)
[2022-01-26] MEDS: FUROsemide 10 mg/mL SDV 2mL 20 MG IV (10:31)
[2022-02-01 10:16] LABS: Basophils % 0.5 %; Eosinophils % 0.9 %; Hematocrit 31.2 % (37.0-47.0); Hemoglobin 9.5 g/dL (11.5-15.3); Lymphocytes # 0.9 10^3/uL (0.8-4.8); Lymphocytes % 41.5 %; Mean Corpuscular HGB Conc 30.4 g/dL (30.0-36.0); Mean Corpuscular Hemoglobin 28.8 pg (28.0-34.0); Mean Corpuscular Volume 94.5 fl (81-99); Mean Platelet Volume 9.8 fL (7.4-10.4); Monocytes # 0.4 10^3/uL (0.2-0.9); Monocytes % 19.3 %; Neutrophils % 37.8 %; Nucleated Red Blood Cells % 0 %; Platelet Count 104 10^3/cmm (130-400); Red Cell Distribution Width 19.2 % (12.1-15.1); White Blood Count 2.1 10^3/uL (4.0-10.0)
[2022-02-01 10:42] LABS: Slide Review Slide Review Perform
== END 2022-02-05 23:59 | disposition home or self-care (01) ==
LOC: ONCMED 06:45
PROVIDERS: PCP Internal Medicine; Visit Provider Internal Medicine Medical Oncology
DX: Z51.11 Encounter for antineoplastic chemotherapy (principal); C56.2 Malignant neoplasm of left ovary; C78.6 Secondary malignant neoplasm of retroperitoneum and peritoneum; J90 Pleural effusion, not elsewhere classified; Z86.19 Personal history of other infectious and parasitic diseases; Z86.16 Personal history of COVID-19; L89.329 Pressure ulcer of left buttock, unspecified stage; Z79.899 Other long term (current) drug therapy
CPT/HCPCS: 36430; 36591; 80053; 85025; 86304; 86850; 86900; 86920; 96360; 96367; 96368; 96374; 96375; 96413; 96415; 96417; 99215; J1100; J1200; J1453; J1940; J2469; J3490; J7030; J7040; J7050; J9045; J9267; P9040

== ENCOUNTER 2022-03-08 08:30 | Oncology outpatient (recurring) (ONCR) | payer OTHER, SELFPAY ==
[2022-02-07 09:59] LABS: Basophils % 0.3 %; Hemoglobin 9.8 g/dL (11.5-15.3); Lymphocytes # 0.5 10^3/uL (0.8-4.8); Lymphocytes % 14.3 %; Mean Corpuscular HGB Conc 30.6 g/dL (30.0-36.0); Mean Corpuscular Hemoglobin 29.7 pg (28.0-34.0); Mean Platelet Volume 9.6 fL (7.4-10.4); Monocytes # 0.1 10^3/uL (0.2-0.9); Monocytes % 1.6 %; Neutrophils # 2.66 10^3/uL (1.8-7.7); Neutrophils % 82.6 %; Nucleated Red Blood Cells % 0 %; Platelet Count 132 10^3/cmm (130-400); Red Cell Distribution Width 20.3 % (12.1-15.1); White Blood Count 3.2 10^3/uL (4.0-10.0)
[2022-02-07 10:26] LABS: Alanine Aminotransferase 8 U/L (0-33); Albumin Level 3.8 g/dL (3.5-5.2); Alkaline Phosphatase 97 IU/L (35-105); Aspartate Amino Transferase 13 U/L (0-32); Blood Urea Nitrogen 18 mg/dL (6-20); CA 125 83.9 U/mL (0-35); Carbon Dioxide 25 mmol/L (22-29); Chloride 100 mmol/L (98-107); Globulin 4.3 g/dL (1.3-4.6); Glucose 201 mg/dL (65-115); Osmolality Calculated 294 mOsm/kg (285-295); Sodium 138 mmol/L (136-145); Total Bilirubin 0.3 mg/dL (0.15-1.2); Total Protein 8.1 g/dL (6.6-8.7)
[2022-02-07 12:00] VITALS: BMI 25.8
[2022-02-07] MEDS: diphenhydrAMINE 50 mg/mL SDV 1mL 25 MG IVP (12:28)
[2022-02-07] MEDS: sodium chloride 0.9% 250 ML 75 ML IV (12:29)
[2022-02-07] MEDS: famotidine 20 mg/2 mL INJ IVP (12:30)
[2022-02-07] MEDS: palonosetron 0.25 mg/5 mL SDV IVP (12:31)
[2022-02-07] MEDS: fosaprepitant 150 MG in sodium chloride 0.9% 150 ML 300 MG IV (13:04)
[2022-02-07] MEDS: [UNRECOGNIZED DRUG - REMARK] 550 MG IV (13:41)
[2022-02-14 08:29] VITALS: BMI 26.1
[2022-02-14 08:50] LABS: Basophils % 0.4 %; Eosinophils % 0.9 %; Hematocrit 27.3 % (37.0-47.0); Hemoglobin 8.5 g/dL (11.5-15.3); Lymphocytes # 0.8 10^3/uL (0.8-4.8); Lymphocytes % 34.3 %; Mean Corpuscular HGB Conc 31.1 g/dL (30.0-36.0); Mean Corpuscular Hemoglobin 29.9 pg (28.0-34.0); Mean Corpuscular Volume 96.1 fl (81-99); Mean Platelet Volume 10.2 fL (7.4-10.4); Monocytes # 0.2 10^3/uL (0.2-0.9); Monocytes % 8.3 %; Neutrophils # 1.28 10^3/uL (1.8-7.7); Neutrophils % 55.7 %; Nucleated Red Blood Cells % 0 %; Platelet Count 159 10^3/cmm (130-400); Red Blood Count 2.84 10^6/uL (4.1-5.3); Red Cell Distribution Width 18.7 % (12.1-15.1); White Blood Count 2.3 10^3/uL (4.0-10.0)
[2022-02-14 09:06] LABS: Slide Review Slide Review Perform
[2022-02-14 09:19] LABS: Alanine Aminotransferase 13 U/L (0-33); Albumin Level 3.7 g/dL (3.5-5.2); Alkaline Phosphatase 100 IU/L (35-105); Anion Gap 14.7 (5-19); Aspartate Amino Transferase 18 U/L (0-32); Blood Urea Nitrogen 18 mg/dL (6-20); Calcium 9.4 mg/dL (8.5-10.5); Carbon Dioxide 28 mmol/L (22-29); Chloride 102 mmol/L (98-107); Globulin 2.8 g/dL (1.3-4.6); Glomerular Filtration Rate 127.2 mL/min (90-130); Glucose 99 mg/dL (65-115); Osmolality Calculated 294 mOsm/kg (285-295); Potassium 3.7 mmol/L (3.5-5.1); Sodium 141 mmol/L (136-145); Total Bilirubin 0.2 mg/dL (0.15-1.2); Total Protein 6.5 g/dL (6.6-8.7)
[2022-02-21 10:58] LABS: Basophils % 0.5 %; Eosinophils % 0.5 %; Hematocrit 27.1 % (37.0-47.0); Hemoglobin 8.5 g/dL (11.5-15.3); Lymphocytes # 0.9 10^3/uL (0.8-4.8); Lymphocytes % 40.5 %; Mean Corpuscular HGB Conc 31.4 g/dL (30.0-36.0); Mean Corpuscular Hemoglobin 30.7 pg (28.0-34.0); Mean Corpuscular Volume 97.8 fl (81-99); Mean Platelet Volume 9.6 fL (7.4-10.4); Monocytes # 0.4 10^3/uL (0.2-0.9); Monocytes % 19.5 %; Neutrophils % 38.5 %; Nucleated Red Blood Cells % 0 %; Platelet Count 151 10^3/cmm (130-400); Red Blood Count 2.77 10^6/uL (4.1-5.3); Red Cell Distribution Width 20.2 % (12.1-15.1); White Blood Count 2.2 10^3/uL (4.0-10.0)
[2022-02-21 11:19] LABS: Slide Review Slide Review Perform
[2022-02-21 11:20] LABS: Neutrophils # 0.83 10^3/uL (1.8-7.7)
[2022-02-28 08:48] LABS: Basophils % 0.3 %; Hematocrit 30.6 % (37.0-47.0); Hemoglobin 9.2 g/dL (11.5-15.3); Lymphocytes # 0.4 10^3/uL (0.8-4.8); Mean Corpuscular HGB Conc 30.1 g/dL (30.0-36.0); Mean Corpuscular Hemoglobin 30.7 pg (28.0-34.0); Mean Platelet Volume 10.2 fL (7.4-10.4); Monocytes % 0.5 %; Neutrophils # 3.44 10^3/uL (1.8-7.7); Neutrophils % 88.2 %; Nucleated Red Blood Cells % 0 %; Platelet Count 200 10^3/cmm (130-400); Red Cell Distribution Width 19.4 % (12.1-15.1); White Blood Count 3.9 10^3/uL (4.0-10.0)
[2022-02-28] MEDS: sodium chloride 0.9% 250 ML 75 ML IV (09:52)
[2022-02-28] MEDS: diphenhydrAMINE 50 mg/mL SDV 1mL 25 MG IVP (09:53)
[2022-02-28] MEDS: famotidine 20 mg/2 mL INJ IVP (09:53)
[2022-02-28] MEDS: palonosetron 0.25 mg/5 mL SDV IVP (10:02)
[2022-02-28] MEDS: fosaprepitant 150 MG in sodium chloride 0.9% 150 ML 300 MG IV (10:26)
[2022-02-28] MEDS: [UNRECOGNIZED DRUG - REMARK] 550 MG IV (11:12)
[2022-02-28 14:10] VITALS: BP 151/88; PULSE 93; RESP 16; TEMP 36.1; O2SAT 97
[2022-03-08 10:12] LABS: Basophils % 0.3 %; Eosinophils % 0.3 %; Hemoglobin 8.2 g/dL (11.5-15.3); Lymphocytes # 1.2 10^3/uL (0.8-4.8); Lymphocytes % 40.2 %; Mean Corpuscular HGB Conc 32.8 g/dL (30.0-36.0); Mean Corpuscular Hemoglobin 31.4 pg (28.0-34.0); Mean Corpuscular Volume 95.8 fl (81-99); Mean Platelet Volume 10.4 fL (7.4-10.4); Monocytes # 0.3 10^3/uL (0.2-0.9); Monocytes % 9.1 %; Neutrophils # 1.46 10^3/uL (1.8-7.7); Neutrophils % 49.4 %; Nucleated Red Blood Cells % 0 %; Platelet Count 97 10^3/cmm (130-400); Red Blood Count 2.61 10^6/uL (4.1-5.3); Red Cell Distribution Width 17.4 % (12.1-15.1)
[2022-03-08 10:36] LABS: Alanine Aminotransferase 11 U/L (0-33); Albumin Level 4.2 g/dL (3.5-5.2); Alkaline Phosphatase 90 IU/L (35-105); Anion Gap 12.9 (5-19); Aspartate Amino Transferase 16 U/L (0-32); Blood Urea Nitrogen 16 mg/dL (6-20); Calcium 9.8 mg/dL (8.5-10.5); Carbon Dioxide 28 mmol/L (22-29); Chloride 101 mmol/L (98-107); Glucose 91 mg/dL (65-115); Osmolality Calculated 287 mOsm/kg (285-295); Potassium 3.9 mmol/L (3.5-5.1); Sodium 138 mmol/L (136-145); Total Bilirubin 0.4 mg/dL (0.15-1.2); Total Protein 7.2 g/dL (6.6-8.7)
[2022-03-08 12:12] LABS: Slide Review Slide Review Perform
[2022-03-08] MEDS: sodium chloride 0.9% 250 ML 75 ML IV (13:03)
[2022-03-08] MEDS: acetaminophen 325 mg Tablet 650 MG PO (13:03)
[2022-03-08] MEDS: diphenhydrAMINE 25 mg Capsule PO (13:03)
[2022-03-08 13:09] VITALS: BP 131/84; PULSE 81; RESP 18; TEMP 36.8; O2SAT 97
[2022-03-08 13:24] VITALS: BP 123/86; PULSE 89; RESP 18; TEMP 36.7; O2SAT 99
[2022-03-08 13:39] VITALS: BP 129/81; PULSE 81; RESP 18; TEMP 36.9; O2SAT 99
[2022-03-08 14:10] VITALS: BP 131/84; PULSE 83; RESP 18; TEMP 36.8; O2SAT 97
[2022-03-08 14:39] VITALS: BP 135/85; PULSE 82; RESP 18; TEMP 36.8; O2SAT 99
[2022-03-08 14:56] VITALS: BP 135/85; PULSE 82; RESP 18; TEMP 36.8; O2SAT 99
== END 2022-03-08 23:59 | disposition home or self-care (01) ==
PROVIDERS: Internal Medicine Medical Oncology; PCP Internal Medicine; Visit Provider Nurse Practitioner Family
DX: D64.81 Anemia due to antineoplastic chemotherapy (principal); T45.1X5A Adverse effect of antineoplastic and immunosuppressive drugs, initial encounter
CPT/HCPCS: 36430; 36591; 80053; 85025; 86304; 86850; 86900; 86920; 96360; 96361; 96367; 96374; 96375; 96413; 96417; 99214; J1100; J1200; J1453; J2469; J3490; J7030; J7040; J7050; J9045; J9267; P9016

== ENCOUNTER 2022-04-05 09:44 | Oncology outpatient (recurring) (ONCR) | payer OTHER, SELFPAY ==
[2022-03-15] MEDS: sodium chloride 0.9% 500 ML 999 ML IV (08:39)
[2022-03-15 08:49] LABS: Hematocrit 26.5 % (37.0-47.0); Hemoglobin 8.4 g/dL (11.5-15.3); Mean Corpuscular HGB Conc 31.7 g/dL (30.0-36.0); Mean Corpuscular Volume 94.6 fl (81-99); Mean Platelet Volume 10.3 fL (7.4-10.4); Platelet Count 50 10^3/cmm (130-400); Red Cell Distribution Width 21.2 % (12.1-15.1)
[2022-03-15] MEDS: ondansetron 2 mg/ML SDV 2 mL 8 MG IVP (08:58)
[2022-03-15 09:10] LABS: Alanine Aminotransferase 9 U/L (0-33); Albumin Level 3.8 g/dL (3.5-5.2); Alkaline Phosphatase 91 IU/L (35-105); Anion Gap 14.5 (5-19); Aspartate Amino Transferase 16 U/L (0-32); Blood Urea Nitrogen 17 mg/dL (6-20); Carbon Dioxide 25 mmol/L (22-29); Chloride 99 mmol/L (98-107); Globulin 3.3 g/dL (1.3-4.6); Glomerular Filtration Rate 127.2 mL/min (90-130); Glucose 111 mg/dL (65-115); Osmolality Calculated 282 mOsm/kg (285-295); Potassium 3.5 mmol/L (3.5-5.1); Sodium 135 mmol/L (136-145); Total Bilirubin 0.5 mg/dL (0.15-1.2); Total Protein 7.1 g/dL (6.6-8.7)
[2022-03-15 09:50] LABS: Absolute Segmented Neutrophil 0.3 10/cmm (1.6-7.1); Band Neutrophils Absolute 0.1 10^3/cmm (0.0-1.2); Eosinophils 2 %; Lymphocytes 24 %; Lymphocytes Absolute 0.2 10^3/cmm (1.2-3.4); Monocytes Absolute 0.2 10^3/cmm (0.1-0.6); Segmented Neutrophils 32 %; Total Cells Counted 100 (0-100)
[2022-03-15 09:51] LABS: Anisocytosis 3+; Macrocytosis 2+; Microcytosis 1+; Platelet Estimate Decreased (Normal); Polychromasia Trace
[2022-03-15 09:53] LABS: Absolute Neutrophil 0.4 10^3/cmm (1.4-6.5); White Blood Count 0.8 10^3/uL (4.0-10.0)
[2022-03-15] MEDS: levofloxacin-dextrose 5 % 750 MG/150 ML PREMIX 100 MG IV (10:54)
[2022-03-15] MEDS: diphenhydrAMINE 25 mg Capsule PO (11:23)
[2022-03-15] MEDS: acetaminophen 325 mg Tablet 650 MG PO (11:23)
[2022-03-15 13:15] VITALS: BP 139/77; PULSE 100; PULSE 998; RESP 18; TEMP 38.2; O2SAT 97; O2SAT 99
[2022-03-15] MEDS: TRAMadol 50 mg Tablet PO (13:24)
[2022-03-15 13:30] VITALS: PULSE 99; RESP 18; TEMP 38.2; O2SAT 99
[2022-03-15 13:45] VITALS: BP 125/74; PULSE 98; RESP 18; TEMP 37.9; O2SAT 97
[2022-03-15] MEDS: FUROsemide 10 mg/mL SDV 2mL 20 MG IVP (14:54)
[2022-03-15 15:00] VITALS: BP 133/79; PULSE 90; RESP 18; TEMP 36.6; O2SAT 99
[2022-03-16 10:15] VITALS: BP 132/75; PULSE 85; RESP 18; TEMP 36.6; O2SAT 98
[2022-03-16] MEDS: levofloxacin-dextrose 5 % 750 MG/150 ML PREMIX 100 MG IV (10:25)
[2022-03-17 09:51] LABS: Eosinophils % 0.3 %; Hemoglobin 10.2 g/dL (11.5-15.3); Lymphocytes # 0.9 10^3/uL (0.8-4.8); Lymphocytes % 13.2 %; Mean Corpuscular HGB Conc 32.9 g/dL (30.0-36.0); Mean Corpuscular Hemoglobin 29.6 pg (28.0-34.0); Mean Corpuscular Volume 89.9 fl (81-99); Mean Platelet Volume 10.7 fL (7.4-10.4); Monocytes # 0.8 10^3/uL (0.2-0.9); Monocytes % 11.7 %; Neutrophils % 74.2 %; Nucleated Red Blood Cells % 0 %; Platelet Count 44 10^3/cmm (130-400); Red Blood Count 3.45 10^6/uL (4.1-5.3); Red Cell Distribution Width 22.5 % (12.1-15.1); White Blood Count 6.6 10^3/uL (4.0-10.0)
[2022-03-17 10:10] LABS: Slide Review Slide Review Perform
[2022-03-17 10:15] LABS: Alanine Aminotransferase 8 U/L (0-33); Albumin Level 3.7 g/dL (3.5-5.2); Alkaline Phosphatase 92 IU/L (35-105); Anion Gap 14.5 (5-19); Aspartate Amino Transferase 13 U/L (0-32); Blood Urea Nitrogen 17 mg/dL (6-20); Calcium 9.4 mg/dL (8.5-10.5); Carbon Dioxide 28 mmol/L (22-29); Chloride 98 mmol/L (98-107); Globulin 3.3 g/dL (1.3-4.6); Glomerular Filtration Rate 86.2 mL/min (90-130); Glucose 85 mg/dL (65-115); Osmolality Calculated 285 mOsm/kg (285-295); Potassium 3.5 mmol/L (3.5-5.1); Sodium 137 mmol/L (136-145); Total Bilirubin 0.6 mg/dL (0.15-1.2)
[2022-03-20 10:11] LABS: Basophils % 0.8 %; Eosinophils % 0.4 %; Hematocrit 36.5 % (37.0-47.0); Hemoglobin 11.3 g/dL (11.5-15.3); Lymphocytes # 1.5 10^3/uL (0.8-4.8); Lymphocytes % 28.6 %; Mean Corpuscular Hemoglobin 29.6 pg (28.0-34.0); Mean Corpuscular Volume 95.5 fl (81-99); Mean Platelet Volume 10.3 fL (7.4-10.4); Monocytes # 0.6 10^3/uL (0.2-0.9); Neutrophils # 2.91 10^3/uL (1.8-7.7); Neutrophils % 56.3 %; Nucleated Red Blood Cells % 0 %; Red Blood Count 3.82 10^6/uL (4.1-5.3); Red Cell Distribution Width 21.1 % (12.1-15.1); White Blood Count 5.2 10^3/uL (4.0-10.0)
[2022-03-20 10:41] LABS: Slide Review Slide Review Perform
[2022-03-20 10:42] LABS: Platelet Count 58 10^3/cmm (130-400)
[2022-04-04 12:14] LABS: Basophils % 1.2 %; Eosinophils # 0.1 10^3/uL (0.0-0.8); Eosinophils % 3.5 %; Hematocrit 29.2 % (37.0-47.0); Hemoglobin 9.3 g/dL (11.5-15.3); Lymphocytes # 0.9 10^3/uL (0.8-4.8); Lymphocytes % 35.3 %; Mean Corpuscular HGB Conc 31.8 g/dL (30.0-36.0); Mean Corpuscular Volume 94.2 fl (81-99); Mean Platelet Volume 10.3 fL (7.4-10.4); Monocytes # 0.3 10^3/uL (0.2-0.9); Monocytes % 13.3 %; Neutrophils # 1.17 10^3/uL (1.8-7.7); Neutrophils % 45.9 %; Nucleated Red Blood Cells % 0 %; Platelet Count 176 10^3/cmm (130-400); Red Cell Distribution Width 17.8 % (12.1-15.1); White Blood Count 2.6 10^3/uL (4.0-10.0)
[2022-04-04 12:43] LABS: Alanine Aminotransferase 10 U/L (0-33); Albumin Level 3.5 g/dL (3.5-5.2); Alkaline Phosphatase 126 IU/L (35-105); Anion Gap 14.7 (5-19); Aspartate Amino Transferase 17 U/L (0-32); Blood Urea Nitrogen 10 mg/dL (6-20); Calcium 9.7 mg/dL (8.5-10.5); Carbon Dioxide 30 mmol/L (22-29); Chloride 100 mmol/L (98-107); Glucose 104 mg/dL (65-115); Osmolality Calculated 291 mOsm/kg (285-295); Potassium 3.7 mmol/L (3.5-5.1); Sodium 141 mmol/L (136-145); Total Bilirubin 0.4 mg/dL (0.15-1.2); Total Protein 6.5 g/dL (6.6-8.7)
--- NOTE | 2022-04-05 09:30 | CT_ITS ---
WS: [id number] CT CHEST ANGIOGRAPHY WITH REFORMATS HISTORY: diminished lung sounds, hx of clots, SOB TECHNIQUE: Contiguous axial images are obtained through the chest during arterial injection of intrav enous contrast. Images are reconstructed to evaluate the pulmonary arteries. MIP imaging also reviewe d. All CT scans at [facility] use at least one of these dose optimization techniques: automat ed exposure control; mA and/or kV adjustment per patient size (includes targeted exams where dose is matched to clinical indication); or iterative reconstruction. CONTRAST: Omnipaque 350; 95 mL IV. DLP: 462.91 mGy.cm COMPARISON: 01/24/2022, 11/05/2021 Excellent opacification of the pulmonary arteries. No filling defects or pulmonary emboli identified. Pulmonary artery size is normal. Normal size aorta. Mild enlargement of the LEFT heart chambers. No LEFT atrial filling defect. Subsegmental atelectasis LEFT upper lobe with mild volume loss. This was previously described on 01/24 but new since 11/05/2021. No pulmonary mass or nodule. Very small layering LEFT pleural effusion slightly decreased in size since 01/24/2022. LEFT subclavian Port-A-Cath. No mediastinal or hilar adenopathy. Patient has known omental carcinomatosis. Large mesenteric implants are noted in the LEFT upper abdom en with the largest implant measuring 5.1 x 3.6 cm. There is mild pleural thickening extending to the stomach and the diaphragm. This was recently described on 01/24/2022. There is now new free air prese nt in the upper abdomen. Marked constipation. No osteoblastic or osteolytic bone disease. CT/CT angio chest PE protcl [id number] IMPRESSION: 1. No pulmonary embolism. 2. Very small LEFT pleural effusion. 3. New intraperitoneal free air. New surgical sutures along the anterior abdom inal wall. Discussed findings with Dr. Amor. Surgery was recent. 4. Known mesenteric implants from omental carcinomatosis.
[2022-04-05] MEDS: iohexol 350 mg/mL 100 mL Btl IV (10:49)
== END 2022-04-07 23:59 | disposition home or self-care (01) ==
LOC: ONCMED 04-07 10:25
PROVIDERS: Nurse Practitioner Family; PCP Internal Medicine; Visit Provider Internal Medicine Medical Oncology
DX: C78.6 Secondary malignant neoplasm of retroperitoneum and peritoneum (principal); C56.9 Malignant neoplasm of unspecified ovary; R06.02 Shortness of breath; J90 Pleural effusion, not elsewhere classified; Z86.718 Personal history of other venous thrombosis and embolism; Z53.9 Procedure and treatment not carried out, unspecified reason
CPT/HCPCS: 36430; 36591; 71275; 80053; 85007; 85025; 86850; 86900; 86920; 87040; 96365; 96366; 96372; 96375; 96401; J1940; J1956; J2405; J7040; P9040; Q5101

== ENCOUNTER 2022-04-07 12:00 | Outpatient (CLI) | payer OTHER, SELFPAY ==
[2022-04-07 13:49] LABS: Basophils % 0.9 %; Eosinophils # 0.2 10^3/uL (0.0-0.8); Eosinophils % 6.8 %; Hematocrit 29.6 % (37.0-47.0); Hemoglobin 9.1 g/dL (11.5-15.3); Lymphocytes # 1.1 10^3/uL (0.8-4.8); Lymphocytes % 32.2 %; Mean Corpuscular HGB Conc 30.7 g/dL (30.0-36.0); Mean Corpuscular Hemoglobin 30.5 pg (28.0-34.0); Mean Corpuscular Volume 99.3 fl (81-99); Mean Platelet Volume 10.3 fL (7.4-10.4); Monocytes # 0.4 10^3/uL (0.2-0.9); Neutrophils # 1.57 10^3/uL (1.8-7.7); Neutrophils % 46.5 %; Nucleated Red Blood Cells % 0 %; Platelet Count 208 10^3/cmm (130-400); Red Blood Count 2.98 10^6/uL (4.1-5.3); Red Cell Distribution Width 18.3 % (12.1-15.1); White Blood Count 3.4 10^3/uL (4.0-10.0)
[2022-04-07 14:10] LABS: Alanine Aminotransferase 8 U/L (0-33); Albumin Level 3.5 g/dL (3.5-5.2); Alkaline Phosphatase 104 IU/L (35-105); Anion Gap 14.6 (5-19); Aspartate Amino Transferase 15 U/L (0-32); Blood Urea Nitrogen 12 mg/dL (6-20); Calcium 9.2 mg/dL (8.5-10.5); Carbon Dioxide 29 mmol/L (22-29); Chloride 100 mmol/L (98-107); Globulin 3.4 g/dL (1.3-4.6); Glomerular Filtration Rate 86.2 mL/min (90-130); Glucose 90 mg/dL (65-115); Osmolality Calculated 289 mOsm/kg (285-295); Potassium 3.6 mmol/L (3.5-5.1); Sodium 140 mmol/L (136-145); Total Bilirubin 0.3 mg/dL (0.15-1.2); Total Protein 6.9 g/dL (6.6-8.7)
== END 2022-04-07 12:01 | disposition home or self-care (01) ==
LOC: LAB 12:03
PROVIDERS: PCP Internal Medicine; Visit Provider Internal Medicine
DX: L89.153 Pressure ulcer of sacral region, stage 3 (principal)
CPT/HCPCS: 80053; 85025

== ENCOUNTER 2022-04-14 09:29 | Oncology outpatient (recurring) (ONCR) | payer OTHER, SELFPAY ==
[2022-04-14 10:41] LABS: Basophils % 0.5 %; Eosinophils # 0.3 10^3/uL (0.0-0.8); Eosinophils % 5.7 %; Hemoglobin 10.3 g/dL (11.5-15.3); Lymphocytes # 1.2 10^3/uL (0.8-4.8); Lymphocytes % 27.4 %; Mean Corpuscular HGB Conc 31.2 g/dL (30.0-36.0); Mean Corpuscular Hemoglobin 30.7 pg (28.0-34.0); Mean Corpuscular Volume 98.5 fl (81-99); Mean Platelet Volume 9.1 fL (7.4-10.4); Monocytes # 0.5 10^3/uL (0.2-0.9); Monocytes % 10.6 %; Neutrophils # 2.46 10^3/uL (1.8-7.7); Neutrophils % 55.6 %; Nucleated Red Blood Cells % 0 %; Platelet Count 267 10^3/cmm (130-400); Red Blood Count 3.35 10^6/uL (4.1-5.3); Red Cell Distribution Width 17.9 % (12.1-15.1); White Blood Count 4.4 10^3/uL (4.0-10.0)
[2022-04-14 11:09] LABS: Alanine Aminotransferase 10 U/L (0-33); Albumin Level 3.7 g/dL (3.5-5.2); Alkaline Phosphatase 90 IU/L (35-105); Anion Gap 13.5 (5-19); Aspartate Amino Transferase 16 U/L (0-32); Blood Urea Nitrogen 9 mg/dL (6-20); CA 125 46.7 U/mL (0-35); Calcium 9.5 mg/dL (8.5-10.5); Carbon Dioxide 29 mmol/L (22-29); Chloride 101 mmol/L (98-107); Glomerular Filtration Rate 127.2 mL/min (90-130); Glucose 116 mg/dL (65-115); Osmolality Calculated 290 mOsm/kg (285-295); Potassium 3.5 mmol/L (3.5-5.1); Sodium 140 mmol/L (136-145); Total Bilirubin 0.3 mg/dL (0.15-1.2); Total Protein 6.7 g/dL (6.6-8.7)
== END 2022-05-08 23:59 | disposition home or self-care (01) ==
PROVIDERS: PCP Internal Medicine; Visit Provider Internal Medicine Medical Oncology
DX: C56.9 Malignant neoplasm of unspecified ovary (principal)
CPT/HCPCS: 36591; 80053; 85025; 86304

== ENCOUNTER 2022-06-02 09:30 | Oncology outpatient (recurring) (ONCR) | payer OTHER, SELFPAY ==
[2022-05-11 10:38] VITALS: BP 155/99; PULSE 74; RESP 18; TEMP 36.7; O2SAT 99
--- NOTE | 2022-05-18 11:30 | USCV_ITS ---
Genny Diaz Age: 56 Gender: F : 1965 Exam Date: 05/18/2022 12:09 Ordering Phys: Tristan Amor MD Technologist: Sanket Manrique Exam Location: [facility] Indication: high risk meds BP: 134 / 89 HR: 65 Rhythm: Sinus Technical Quality: Adequate MEASUREMENTS (Male / Female) Normal Values 2D ECHO LV Diastolic Diameter PLAX 4.0 cm 4.2 - 5.9 / 3.9 - 5.3 cm LV Systolic Diameter PLAX 2.4 cm IVS Diastolic Thickness 1.2 cm 0.6 - 1.0 / 0.6 - 0.9 cm IVS Systolic Thickness 1.4 cm LVPW Diastolic Thickness 0.9 cm 0.6 - 1.0 / 0.6 - 0.9 cm LVPW Systolic Thickness 1.4 cm LVOT Diameter 2.0 cm LV Ejection Fraction 2D Teich 69.8 % LV Ejection Fraction MOD 2C 58.0 % LV Ejection Fraction 2C AL 59.0 % LA Diameter 3.1 cm LA Width 2.8 cm LA Height 3.4 cm RA Width 2.7 cm RA Height 3.1 cm Aorta at Sinotubular Diameter 2.1 cm IVC Diameter 1.7 cm M-MODE Aortic Annulus Diameter 2.6 cm LA Ao Ratio MM 1.1 MV E Point Septal Separation 0.5 cm DOPPLER Right Atrial Pressure 3.0 mmHg FINDINGS Left Ventricle Normal left ventricular size, systolic function and wall thickness, with no regional wall motion abnormalities. Left ventricular ejection fraction is estimated at 60 %. Right Ventricle Normal right ventricular size and systolic function. Right Atrium Normal right atrial size. Left Atrium Normal left atrial size. Mitral Valve Mildly thickened mitral valve. Aortic Valve Structurally normal trileaflet aortic valve. Tricuspid Valve Structurally normal tricuspid valve. Pulmonic Valve Structurally normal pulmonic valve. Pericardium No pericardial effusion. Aorta Normal size aortic root and proximal ascending aorta. IVC Normal inferior vena cava. CONCLUSIONS 1. This is a limited echocardiogram. 2. Normal left ventricular size, systolic function and wall thickness, with no regional wall motion abnormalities. Left ventricular ejection fraction is estimated at 60 %. 3. No prior similar studies to compare. Fabiola Elizabeth MD (Electronically Signed) Final Date: 19 May 2022 11:30 S
[2022-05-18 13:27] LABS: Basophils # 0.1 10^3/uL (0.0-0.1); Eosinophils # 0.2 10^3/uL (0.0-0.8); Hematocrit 39.2 % (37.0-47.0); Hemoglobin 12.2 g/dL (11.5-15.3); Lymphocytes # 1.4 10^3/uL (0.8-4.8); Mean Corpuscular HGB Conc 31.1 g/dL (30.0-36.0); Mean Corpuscular Hemoglobin 30.6 pg (28.0-34.0); Mean Corpuscular Volume 98.2 fl (81-99); Mean Platelet Volume 9.3 fL (7.4-10.4); Monocytes # 0.5 10^3/uL (0.2-0.9); Monocytes % 9.8 %; Neutrophils # 2.95 10^3/uL (1.8-7.7); Nucleated Red Blood Cells % 0 %; Platelet Count 230 10^3/cmm (130-400); Red Blood Count 3.99 10^6/uL (4.1-5.3); Red Cell Distribution Width 14.3 % (12.1-15.1)
[2022-05-18 13:55] LABS: Alanine Aminotransferase 12 U/L (0-33); Albumin Level 4.5 g/dL (3.5-5.2); Alkaline Phosphatase 85 IU/L (35-105); Aspartate Amino Transferase 19 U/L (0-32); Blood Urea Nitrogen 13 mg/dL (6-20); Calcium 9.7 mg/dL (8.5-10.5); Carbon Dioxide 30 mmol/L (22-29); Globulin 2.9 g/dL (1.3-4.6); Glomerular Filtration Rate 86.2 mL/min (90-130); Glucose 97 mg/dL (65-115); Total Bilirubin 0.5 mg/dL (0.15-1.2); Total Protein 7.4 g/dL (6.6-8.7)
[2022-05-18 14:04] LABS: Add Urine Microscopic? YES; Bacteria Urine TRACE /hpf; Bilirubin Urine Neg (Negative); Blood Urine Neg (Negative); Glucose Urine UA Norm (Normal); Ketones Urine 2+ (Negative); Leukocyte Esterase Urine 1+ (Negative); Mucus Urine 1+ /hpf; Nitrate Urine Negative (Negative); Protein Urine Neg (Negative); RBC Urine 0-4 /hpf (0-2); Squamous Epithelial Cell Urine 0-4 /hpf (0-5); Urine Appearance Clear (CLEAR); Urine Color Yellow (Yellow); Urobilinogen Urine Norm (Negative); pH Urine 6 (5-7)
[2022-05-18 15:42] LABS: CA 125 29.1 U/mL (0-35)
[2022-05-18 15:44] LABS: Chloride 99 mmol/L (98-107); Osmolality Calculated 286 mOsm/kg (285-295); Sodium 138 mmol/L (136-145)
[2022-05-19 10:47] VITALS: BMI 25.1
--- NOTE | 2022-05-19 11:34 | PC.NURSE ---
Echocardiogram done 05/18/22 but had not been read by [employer] technical architect. Spoke with Dr. Elizabeth after she reviewed report. Ejection Fraction reported at 60%. Dr. Amor notified. Approved to start treatment.
[2022-05-19] MEDS: sodium chloride 0.9% 250 ML 100 ML IV (11:55)
[2022-05-19] MEDS: ondansetron 2 mg/ML SDV 2 mL 8 MG IVP (11:59)
[2022-05-19] MEDS: famotidine 20 mg/2 mL INJ IVP (12:01)
[2022-05-19] MEDS: diphenhydrAMINE 50 mg/mL SDV 1mL 25 MG IVP (12:03)
[2022-05-19] MEDS: dextrose 5% 250 ML 75 ML IV (13:48)
[2022-05-19 15:13] VITALS: BP 154/89; PULSE 72; RESP 18; TEMP 36.9; O2SAT 96
[2022-06-02 09:50] VITALS: BP 142/83; PULSE 72; RESP 18; TEMP 36.6; O2SAT 99
[2022-06-02 10:13] LABS: Eosinophils # 0.1 10^3/uL (0.0-0.8); Eosinophils % 2.1 %; Hematocrit 38.2 % (37.0-47.0); Hemoglobin 12.3 g/dL (11.5-15.3); Lymphocytes # 1.2 10^3/uL (0.8-4.8); Lymphocytes % 30.3 %; Mean Corpuscular HGB Conc 32.2 g/dL (30.0-36.0); Mean Corpuscular Volume 93.2 fl (81-99); Monocytes # 0.2 10^3/uL (0.2-0.9); Monocytes % 6.2 %; Neutrophils # 2.35 10^3/uL (1.8-7.7); Neutrophils % 60.1 %; Nucleated Red Blood Cells % 0 %; Platelet Count 121 10^3/cmm (130-400); Red Cell Distribution Width 13.4 % (12.1-15.1); White Blood Count 3.9 10^3/uL (4.0-10.0)
[2022-06-02 10:43] LABS: Alanine Aminotransferase 13 U/L (0-33); Albumin Level 4.3 g/dL (3.5-5.2); Alkaline Phosphatase 83 U/L (35-105); Anion Gap 16.2 (5-19); Aspartate Amino Transferase 20 U/L (0-32); Blood Urea Nitrogen 21 mg/dL (6-20); Carbon Dioxide 28 mmol/L (22-29); Chloride 98 mmol/L (98-107); Globulin 3.1 g/dL (1.3-4.6); Glucose 84 mg/dL (65-115); Osmolality Calculated 290 mOsm/kg (285-295); Potassium 3.2 mmol/L (3.5-5.1); Sodium 139 mmol/L (136-145); Total Bilirubin 0.4 mg/dL (0.15-1.2); Total Protein 7.4 g/dL (6.6-8.7)
[2022-06-02] MEDS: sodium chloride 0.9% 250 ML 999 ML IV (11:58)
== END 2022-06-08 23:59 | disposition home or self-care (01) ==
PROVIDERS: PCP Internal Medicine; Visit Provider Internal Medicine Medical Oncology
DX: Z51.11 Encounter for antineoplastic chemotherapy (principal); C56.9 Malignant neoplasm of unspecified ovary
CPT/HCPCS: 36591; 80053; 81001; 85025; 86304; 93308; 96375; 96413; 96415; 96417; 96523; J1200; J2405; J3490; J7050; Q2050

== ENCOUNTER 2022-06-30 10:30 | Oncology outpatient (recurring) (ONCR) | payer OTHER, SELFPAY ==
[2022-06-16 09:30] LABS: Basophils # 0.1 10^3/uL (0.0-0.1); Basophils % 1.6 %; Eosinophils # 0.1 10^3/uL (0.0-0.8); Eosinophils % 1.6 %; Hematocrit 35.8 % (37.0-47.0); Hemoglobin 11.5 g/dL (11.5-15.3); Lymphocytes # 1.2 10^3/uL (0.8-4.8); Lymphocytes % 31.6 %; Mean Corpuscular HGB Conc 32.1 g/dL (30.0-36.0); Mean Corpuscular Hemoglobin 30.7 pg (28.0-34.0); Mean Corpuscular Volume 95.7 fl (81-99); Mean Platelet Volume 8.8 fL (7.4-10.4); Monocytes # 0.6 10^3/uL (0.2-0.9); Monocytes % 16.2 %; Neutrophils # 1.84 10^3/uL (1.8-7.7); Neutrophils % 48.7 %; Nucleated Red Blood Cells % 0 %; Platelet Count 230 10^3/cmm (130-400); Red Blood Count 3.74 10^6/uL (4.1-5.3); Red Cell Distribution Width 13.2 % (12.1-15.1); White Blood Count 3.8 10^3/uL (4.0-10.0)
[2022-06-16 10:09] LABS: Alanine Aminotransferase 11 U/L (0-33); Albumin Level 4.3 g/dL (3.5-5.2); Alkaline Phosphatase 94 U/L (35-105); Anion Gap 10.7 (5-19); Aspartate Amino Transferase 16 U/L (0-32); Blood Urea Nitrogen 27 mg/dL (6-20); CA 125 18.6 U/mL (0-35); Calcium 9.5 mg/dL (8.5-10.5); Carbon Dioxide 31 mmol/L (22-29); Chloride 96 mmol/L (98-107); Globulin 2.9 g/dL (1.3-4.6); Glomerular Filtration Rate 86.2 mL/min (90-130); Glucose 78 mg/dL (65-115); Osmolality Calculated 282 mOsm/kg (285-295); Potassium 3.7 mmol/L (3.5-5.1); Sodium 134 mmol/L (136-145); Total Bilirubin 0.3 mg/dL (0.15-1.2); Total Protein 7.2 g/dL (6.6-8.7)
[2022-06-16] MEDS: sodium chloride 0.9% 250 ML 75 ML IV (11:18)
[2022-06-16] MEDS: diphenhydrAMINE 50 mg/mL SDV 1mL 25 MG IVP (11:19)
[2022-06-16] MEDS: famotidine 20 mg/2 mL INJ IVP (11:26)
[2022-06-16] MEDS: ondansetron 2 mg/ML SDV 2 mL 8 MG IVP (11:27)
[2022-06-16] MEDS: dextrose 5% 250 ML 75 ML IV (12:45)
[2022-06-16 13:45] VITALS: BP 124/74; PULSE 68; RESP 18; TEMP 36.6; O2SAT 98
[2022-06-20 10:29] VITALS: BP 105/71; PULSE 85; RESP 16; TEMP 36.2; O2SAT 92
[2022-06-20] MEDS: sodium chloride 0.9% 1,000 ML 999 ML IV (10:43)
[2022-06-20 10:59] LABS: Basophils % 0.9 %; Eosinophils # 0.1 10^3/uL (0.0-0.8); Eosinophils % 1.6 %; Hematocrit 28.6 % (37.0-47.0); Hemoglobin 9.1 g/dL (11.5-15.3); Lymphocytes # 1.2 10^3/uL (0.8-4.8); Lymphocytes % 35.8 %; Mean Corpuscular HGB Conc 31.8 g/dL (30.0-36.0); Mean Corpuscular Hemoglobin 30.2 pg (28.0-34.0); Mean Platelet Volume 8.9 fL (7.4-10.4); Monocytes # 0.4 10^3/uL (0.2-0.9); Monocytes % 11.2 %; Neutrophils # 1.61 10^3/uL (1.8-7.7); Neutrophils % 50.2 %; Nucleated Red Blood Cells % 0 %; Platelet Count 239 10^3/cmm (130-400); Red Blood Count 3.01 10^6/uL (4.1-5.3); Red Cell Distribution Width 13.1 % (12.1-15.1); White Blood Count 3.2 10^3/uL (4.0-10.0)
[2022-06-20 11:21] LABS: Alanine Aminotransferase 11 U/L (0-33); Albumin Level 3.9 g/dL (3.5-5.2); Alkaline Phosphatase 62 U/L (35-105); Anion Gap 15.5 (5-19); Aspartate Amino Transferase 17 U/L (0-32); Blood Urea Nitrogen 36 mg/dL (6-20); Calcium 9.4 mg/dL (8.5-10.5); Carbon Dioxide 27 mmol/L (22-29); Chloride 101 mmol/L (98-107); Globulin 2.9 g/dL (1.3-4.6); Glomerular Filtration Rate 64.5 mL/min (90-130); Glucose 105 mg/dL (65-115); Osmolality Calculated 299 mOsm/kg (285-295); Potassium 3.5 mmol/L (3.5-5.1); Sodium 140 mmol/L (136-145); Total Bilirubin 0.3 mg/dL (0.15-1.2); Total Protein 6.8 g/dL (6.6-8.7)
[2022-06-20 11:50] VITALS: BP 112/63; PULSE 73; RESP 16; TEMP 36.4; O2SAT 99
[2022-06-23 09:33] LABS: Basophils % 0.6 %; Eosinophils # 0.1 10^3/uL (0.0-0.8); Eosinophils % 3.5 %; Hemoglobin 7.7 g/dL (11.5-15.3); Lymphocytes % 29.7 %; Mean Corpuscular HGB Conc 32.1 g/dL (30.0-36.0); Mean Corpuscular Hemoglobin 30.7 pg (28.0-34.0); Mean Corpuscular Volume 95.6 fl (81-99); Monocytes # 0.2 10^3/uL (0.2-0.9); Monocytes % 6.4 %; Neutrophils # 2.04 10^3/uL (1.8-7.7); Neutrophils % 59.5 %; Nucleated Red Blood Cells % 0 %; Platelet Count 231 10^3/cmm (130-400); Red Blood Count 2.51 10^6/uL (4.1-5.3); Red Cell Distribution Width 13.3 % (12.1-15.1); White Blood Count 3.4 10^3/uL (4.0-10.0)
[2022-06-23 09:51] LABS: Alanine Aminotransferase 11 U/L (0-33); Alkaline Phosphatase 68 U/L (35-105); Anion Gap 14.5 (5-19); Aspartate Amino Transferase 18 U/L (0-32); Blood Urea Nitrogen 22 mg/dL (6-20); Calcium 9.7 mg/dL (8.5-10.5); Carbon Dioxide 28 mmol/L (22-29); Chloride 99 mmol/L (98-107); Globulin 2.6 g/dL (1.3-4.6); Glomerular Filtration Rate 64.5 mL/min (90-130); Glucose 85 mg/dL (65-115); Osmolality Calculated 289 mOsm/kg (285-295); Potassium 3.5 mmol/L (3.5-5.1); Sodium 138 mmol/L (136-145); Total Bilirubin 0.3 mg/dL (0.15-1.2); Total Protein 6.6 g/dL (6.6-8.7)
[2022-06-23] MEDS: acetaminophen 325 mg Tablet 650 MG PO (10:17)
[2022-06-23] MEDS: diphenhydrAMINE 25 mg Capsule PO (10:18)
[2022-06-23] MEDS: sodium chloride 0.9% 250 ML IV (10:18)
[2022-06-23 14:05] VITALS: BP 102/66; PULSE 79; RESP 18; TEMP 36.4; O2SAT 93
[2022-06-23 14:20] VITALS: BP 103/63; PULSE 83; RESP 18; TEMP 36.6; O2SAT 99
[2022-06-23 14:35] VITALS: BP 103/64; PULSE 76; RESP 18; TEMP 36.6; O2SAT 99
[2022-06-23 15:05] VITALS: BP 106/67; PULSE 76; RESP 18; TEMP 36.6; O2SAT 98
[2022-06-23 15:50] VITALS: BP 103/68; PULSE 76; RESP 18; TEMP 36.6; O2SAT 98
[2022-06-24] MEDS: sodium chloride 0.9% 250 ML IV (08:16)
[2022-06-24] MEDS: acetaminophen 325 mg Tablet 650 MG PO (08:20)
[2022-06-24] MEDS: diphenhydrAMINE 25 mg Capsule PO (08:21)
[2022-06-24 08:43] VITALS: BP 121/72; PULSE 73; RESP 18; TEMP 36.4; O2SAT 97
[2022-06-24 09:00] VITALS: BP 121/72; PULSE 73; RESP 16; TEMP 36.4; O2SAT 97
[2022-06-24 09:15] VITALS: BP 112/67; PULSE 71; RESP 16; TEMP 36.6; O2SAT 98
[2022-06-24 09:45] VITALS: BP 120/73; PULSE 70; RESP 16; TEMP 36.6; O2SAT 98
[2022-06-24 10:30] VITALS: BP 132/76; PULSE 72; RESP 16; TEMP 36.6; O2SAT 98
[2022-06-24 10:50] VITALS: BP 132/76; PULSE 72; RESP 16; TEMP 36.6; O2SAT 98
[2022-06-30 10:49] VITALS: BMI 26.2
[2022-06-30 10:53] LABS: Basophils % 1.1 %; Eosinophils # 0.2 10^3/uL (0.0-0.8); Eosinophils % 5.1 %; Hemoglobin 10.6 g/dL (11.5-15.3); Lymphocytes # 0.9 10^3/uL (0.8-4.8); Lymphocytes % 24.3 %; Mean Corpuscular HGB Conc 32.1 g/dL (30.0-36.0); Mean Corpuscular Hemoglobin 30.9 pg (28.0-34.0); Mean Corpuscular Volume 96.2 fl (81-99); Mean Platelet Volume 9.1 fL (7.4-10.4); Monocytes # 0.4 10^3/uL (0.2-0.9); Monocytes % 9.5 %; Neutrophils # 2.21 10^3/uL (1.8-7.7); Neutrophils % 59.7 %; Nucleated Red Blood Cells % 0 %; Platelet Count 218 10^3/cmm (130-400); Red Blood Count 3.43 10^6/uL (4.1-5.3); Red Cell Distribution Width 14.6 % (12.1-15.1); White Blood Count 3.7 10^3/uL (4.0-10.0)
[2022-06-30 11:22] LABS: Alanine Aminotransferase 9 U/L (0-33); Albumin Level 4.1 g/dL (3.5-5.2); Alkaline Phosphatase 81 U/L (35-105); Anion Gap 14.7 (5-19); Aspartate Amino Transferase 16 U/L (0-32); Blood Urea Nitrogen 23 mg/dL (6-20); Calcium 9.5 mg/dL (8.5-10.5); Carbon Dioxide 28 mmol/L (22-29); Chloride 104 mmol/L (98-107); Globulin 2.5 g/dL (1.3-4.6); Glomerular Filtration Rate 64.5 mL/min (90-130); Glucose 97 mg/dL (65-115); Osmolality Calculated 300 mOsm/kg (285-295); Potassium 3.7 mmol/L (3.5-5.1); Sodium 143 mmol/L (136-145); Total Bilirubin 0.4 mg/dL (0.15-1.2); Total Protein 6.6 g/dL (6.6-8.7)
[2022-06-30] MEDS: sodium chloride 0.9% 250 ML 75 ML IV (12:23)
[2022-06-30 12:30] VITALS: BP 129/82; PULSE 75; RESP 18; TEMP 36.4; O2SAT 99
== END 2022-07-08 23:59 | disposition home or self-care (01) ==
PROVIDERS: Nurse Practitioner; PCP Internal Medicine; Visit Provider Internal Medicine Medical Oncology
DX: Z51.11 Encounter for antineoplastic chemotherapy (principal); C56.9 Malignant neoplasm of unspecified ovary; C78.6 Secondary malignant neoplasm of retroperitoneum and peritoneum; D64.9 Anemia, unspecified
CPT/HCPCS: 36430; 80053; 80503; 82274; 85025; 86304; 86850; 86870; 86900; 86902; 86920; 96365; 96375; 96413; 96417; J1200; J1940; J2405; J3490; J7030; J7050; P9040; Q2050; Q5107

== ENCOUNTER 2022-07-27 08:30 | Oncology outpatient (recurring) (ONCR) | payer OTHER, SELFPAY ==
[2022-07-13 09:17] LABS: Basophils # 0.1 10^3/uL (0.0-0.1); Basophils % 1.5 %; Eosinophils # 0.3 10^3/uL (0.0-0.8); Eosinophils % 6.8 %; Hematocrit 35.2 % (37.0-47.0); Hemoglobin 11.2 g/dL (11.5-15.3); Lymphocytes # 1.3 10^3/uL (0.8-4.8); Lymphocytes % 31.8 %; Mean Corpuscular HGB Conc 31.8 g/dL (30.0-36.0); Mean Corpuscular Hemoglobin 30.1 pg (28.0-34.0); Mean Corpuscular Volume 94.6 fl (81-99); Mean Platelet Volume 9.1 fL (7.4-10.4); Monocytes # 0.6 10^3/uL (0.2-0.9); Monocytes % 14.3 %; Neutrophils # 1.86 10^3/uL (1.8-7.7); Neutrophils % 45.1 %; Nucleated Red Blood Cells % 0 %; Platelet Count 229 10^3/cmm (130-400); Red Blood Count 3.72 10^6/uL (4.1-5.3); Red Cell Distribution Width 14.1 % (12.1-15.1); White Blood Count 4.1 10^3/uL (4.0-10.0)
[2022-07-13 10:07] LABS: Alanine Aminotransferase 14 U/L (0-33); Albumin Level 3.9 g/dL (3.5-5.2); Alkaline Phosphatase 81 U/L (35-105); Anion Gap 13.9 (5-19); Aspartate Amino Transferase 19 U/L (0-32); Blood Urea Nitrogen 26 mg/dL (6-20); CA 125 15.5 U/mL (0-35); Calcium 9.5 mg/dL (8.5-10.5); Carbon Dioxide 31 mmol/L (22-29); Chloride 100 mmol/L (98-107); Globulin 3.1 g/dL (1.3-4.6); Glomerular Filtration Rate 64.5 mL/min (90-130); Glucose 87 mg/dL (65-115); Osmolality Calculated 296 mOsm/kg (285-295); Potassium 3.9 mmol/L (3.5-5.1); Sodium 141 mmol/L (136-145); Total Bilirubin 0.5 mg/dL (0.15-1.2)
[2022-07-13] MEDS: sodium chloride 0.9% 250 ML 75 ML IV (11:23)
[2022-07-13] MEDS: diphenhydrAMINE 50 mg/mL SDV 1mL 25 MG IVP (11:24)
[2022-07-13] MEDS: famotidine 20 mg/2 mL INJ IVP (11:25)
[2022-07-13] MEDS: ondansetron 2 mg/ML SDV 2 mL 8 MG IVP (11:26)
[2022-07-13] MEDS: dextrose 5% 250 ML 75 ML IV (12:27)
[2022-07-13 13:40] VITALS: BP 140/78; PULSE 67; RESP 18; TEMP 36.6; O2SAT 98
[2022-07-27 09:19] LABS: Eosinophils # 0.4 10^3/uL (0.0-0.8); Eosinophils % 9.7 %; Hematocrit 33.9 % (37.0-47.0); Hemoglobin 10.9 g/dL (11.5-15.3); Lymphocytes # 0.9 10^3/uL (0.8-4.8); Lymphocytes % 23.4 %; Mean Corpuscular HGB Conc 32.2 g/dL (30.0-36.0); Mean Corpuscular Hemoglobin 30.4 pg (28.0-34.0); Mean Corpuscular Volume 94.4 fl (81-99); Mean Platelet Volume 9.2 fL (7.4-10.4); Monocytes # 0.3 10^3/uL (0.2-0.9); Monocytes % 7.4 %; Neutrophils # 2.29 10^3/uL (1.8-7.7); Neutrophils % 58.2 %; Nucleated Red Blood Cells % 0 %; Platelet Count 202 10^3/cmm (130-400); Red Blood Count 3.59 10^6/uL (4.1-5.3); Red Cell Distribution Width 13.6 % (12.1-15.1); White Blood Count 3.9 10^3/uL (4.0-10.0)
[2022-07-27 10:13] LABS: Alanine Aminotransferase 9 U/L (0-33); Albumin Level 4.1 g/dL (3.5-5.2); Alkaline Phosphatase 71 U/L (35-105); Anion Gap 14.3 (5-19); Aspartate Amino Transferase 15 U/L (0-32); Blood Urea Nitrogen 24 mg/dL (6-20); Calcium 9.8 mg/dL (8.5-10.5); Carbon Dioxide 29 mmol/L (22-29); Chloride 100 mmol/L (98-107); Globulin 3.1 g/dL (1.3-4.6); Glomerular Filtration Rate 64.3 mL/min (90-130); Glucose 84 mg/dL (65-115); Osmolality Calculated 293 mOsm/kg (285-295); Potassium 3.3 mmol/L (3.5-5.1); Sodium 140 mmol/L (136-145); Total Bilirubin 0.5 mg/dL (0.15-1.2); Total Protein 7.2 g/dL (6.6-8.7)
[2022-07-27] MEDS: sodium chloride 0.9% 250 ML 100 ML IV (13:27)
[2022-07-27 14:25] VITALS: BP 148/89; PULSE 78; RESP 18; TEMP 36.6; O2SAT 98; O2SAT 99
== END 2022-08-08 23:59 | disposition home or self-care (01) ==
PROVIDERS: PCP Internal Medicine; Visit Provider Internal Medicine Medical Oncology
DX: Z51.11 Encounter for antineoplastic chemotherapy (principal); C56.9 Malignant neoplasm of unspecified ovary; C78.6 Secondary malignant neoplasm of retroperitoneum and peritoneum
CPT/HCPCS: 80053; 85025; 86304; 96375; 96413; 96417; J1200; J2405; J3490; J7050; Q2050

== ENCOUNTER 2022-09-07 10:00 | Oncology outpatient (recurring) (ONCR) | payer OTHER, SELFPAY ==
[2022-08-10 09:03] LABS: Basophils % 1.2 %; Eosinophils # 0.2 10^3/uL (0.0-0.8); Eosinophils % 5.4 %; Hemoglobin 11.6 g/dL (11.5-15.3); Lymphocytes # 0.9 10^3/uL (0.8-4.8); Lymphocytes % 26.6 %; Mean Corpuscular HGB Conc 32.2 g/dL (30.0-36.0); Mean Corpuscular Hemoglobin 30.5 pg (28.0-34.0); Mean Corpuscular Volume 94.7 fl (81-99); Mean Platelet Volume 8.9 fL (7.4-10.4); Monocytes # 0.6 10^3/uL (0.2-0.9); Monocytes % 16.7 %; Neutrophils # 1.67 10^3/uL (1.8-7.7); Neutrophils % 49.8 %; Nucleated Red Blood Cells % 0 %; Platelet Count 211 10^3/cmm (130-400); Red Cell Distribution Width 13.8 % (12.1-15.1); White Blood Count 3.4 10^3/uL (4.0-10.0)
[2022-08-10 09:35] LABS: Alanine Aminotransferase 12 U/L (0-33); Albumin Level 4.2 g/dL (3.5-5.2); Alkaline Phosphatase 70 U/L (35-105); Anion Gap 12.7 (5-19); Aspartate Amino Transferase 20 U/L (0-32); Blood Urea Nitrogen 26 mg/dL (6-20); CA 125 17.1 U/mL (0-35); Calcium 9.8 mg/dL (8.5-10.5); Carbon Dioxide 29 mmol/L (22-29); Chloride 101 mmol/L (98-107); Globulin 3.1 g/dL (1.3-4.6); Glomerular Filtration Rate 64.3 mL/min (90-130); Glucose 81 mg/dL (65-115); Osmolality Calculated 292 mOsm/kg (285-295); Potassium 3.7 mmol/L (3.5-5.1); Sodium 139 mmol/L (136-145); Total Bilirubin 0.5 mg/dL (0.15-1.2); Total Protein 7.3 g/dL (6.6-8.7)
[2022-08-10] MEDS: sodium chloride 0.9% 250 ML 75 ML IV (10:49)
[2022-08-10] MEDS: ondansetron 2 mg/ML SDV 2 mL 8 MG IVP (10:50)
[2022-08-10] MEDS: famotidine 20 mg/2 mL INJ IVP (10:53)
[2022-08-10 10:57] VITALS: BP 113/60; PULSE 55; RESP 16; TEMP 36.8; O2SAT 97
[2022-08-10] MEDS: diphenhydrAMINE 50 mg/mL SDV 1mL 25 MG IVP (11:05)
[2022-08-10 12:01] LABS: Urine Appearance Clear (CLEAR); Urine Color Yellow (Yellow)
[2022-08-10 12:02] LABS: Add Urine Microscopic? YES; Bilirubin Urine Neg (Negative); Blood Urine Neg (Negative); Glucose Urine UA Norm (Normal); Ketones Urine Negative (Negative); Leukocyte Esterase Urine 2+ (Negative); Nitrate Urine Negative (Negative); Protein Urine Trace (Negative); Specific Gravity, Urine 1.015 (1.005-1.030); Urobilinogen Urine Norm (Negative); pH Urine 5 (5-7)
[2022-08-10 12:08] LABS: RBC Urine 0-4 /hpf (0-2)
[2022-08-10 12:09] LABS: Add Urine Culture? Yes; Bacteria Urine 3+ /hpf; Squamous Epithelial Cell Urine 0-4 /hpf (0-5)
[2022-08-10 13:14] VITALS: BP 139/84; PULSE 76; RESP 16; TEMP 36.8; O2SAT 96
[2022-08-24 10:39] LABS: Basophils # 0.1 10^3/uL (0.0-0.1); Basophils % 1.3 %; Eosinophils # 0.4 10^3/uL (0.0-0.8); Eosinophils % 9.5 %; Hematocrit 34.2 % (37.0-47.0); Hemoglobin 11.1 g/dL (11.5-15.3); Lymphocytes # 0.8 10^3/uL (0.8-4.8); Lymphocytes % 21.6 %; Mean Corpuscular HGB Conc 32.5 g/dL (30.0-36.0); Mean Corpuscular Hemoglobin 30.7 pg (28.0-34.0); Mean Corpuscular Volume 94.5 fl (81-99); Mean Platelet Volume 9.5 fL (7.4-10.4); Monocytes # 0.3 10^3/uL (0.2-0.9); Monocytes % 8.7 %; Neutrophils # 2.22 10^3/uL (1.8-7.7); Neutrophils % 58.6 %; Nucleated Red Blood Cells % 0 %; Platelet Count 202 10^3/cmm (130-400); Red Blood Count 3.62 10^6/uL (4.1-5.3); Red Cell Distribution Width 13.7 % (12.1-15.1); White Blood Count 3.8 10^3/uL (4.0-10.0)
[2022-08-24 13:13] VITALS: BP 137/82; PULSE 75; RESP 18; TEMP 36.7; O2SAT 98
[2022-09-07 10:15] LABS: Basophils # 0.1 10^3/uL (0.0-0.1); Basophils % 1.6 %; Eosinophils # 0.3 10^3/uL (0.0-0.8); Eosinophils % 5.8 %; Hematocrit 35.4 % (37.0-47.0); Hemoglobin 11.2 g/dL (11.5-15.3); Mean Corpuscular HGB Conc 31.6 g/dL (30.0-36.0); Mean Corpuscular Hemoglobin 29.6 pg (28.0-34.0); Mean Corpuscular Volume 93.7 fl (81-99); Monocytes # 0.5 10^3/uL (0.2-0.9); Monocytes % 12.3 %; Neutrophils # 2.46 10^3/uL (1.8-7.7); Neutrophils % 57.1 %; Nucleated Red Blood Cells % 0 %; Platelet Count 250 10^3/cmm (130-400); Red Blood Count 3.78 10^6/uL (4.1-5.3); Red Cell Distribution Width 13.5 % (12.1-15.1); White Blood Count 4.3 10^3/uL (4.0-10.0)
[2022-09-07 10:46] LABS: Alanine Aminotransferase 10 U/L (0-33); Alkaline Phosphatase 73 U/L (35-105); Anion Gap 13.6 (5-19); Aspartate Amino Transferase 18 U/L (0-32); Blood Urea Nitrogen 30 mg/dL (6-20); CA 125 20.2 U/mL (0-35); Calcium 9.8 mg/dL (8.5-10.5); Carbon Dioxide 27 mmol/L (22-29); Chloride 101 mmol/L (98-107); Globulin 3.3 g/dL (1.3-4.6); Glomerular Filtration Rate 42.1 mL/min (90-130); Glucose 96 mg/dL (65-115); Osmolality Calculated 292 mOsm/kg (285-295); Potassium 3.6 mmol/L (3.5-5.1); Sodium 138 mmol/L (136-145); Total Bilirubin 0.4 mg/dL (0.15-1.2); Total Protein 7.3 g/dL (6.6-8.7)
[2022-09-07] MEDS: dextrose 5% 250 ML 75 ML IV (12:20)
[2022-09-07] MEDS: ondansetron 2 mg/ML SDV 2 mL 8 MG IVP (12:22)
[2022-09-07] MEDS: diphenhydrAMINE 50 mg/mL SDV 1mL 25 MG IVP (12:29)
[2022-09-07 14:06] VITALS: BP 132/84; PULSE 74; RESP 16; TEMP 36.3; O2SAT 97
== END 2022-09-07 23:59 | disposition home or self-care (01) ==
PROVIDERS: PCP Internal Medicine; Visit Provider Internal Medicine Medical Oncology
DX: Z51.11 Encounter for antineoplastic chemotherapy (principal); C56.3 Malignant neoplasm of bilateral ovaries; C78.6 Secondary malignant neoplasm of retroperitoneum and peritoneum; D64.81 Anemia due to antineoplastic chemotherapy; D70.1 Agranulocytosis secondary to cancer chemotherapy; T45.1X5A Adverse effect of antineoplastic and immunosuppressive drugs, initial encounter; I10 Essential (primary) hypertension; Z79.899 Other long term (current) drug therapy; Z79.2 Long term (current) use of antibiotics; Z79.52 Long term (current) use of systemic steroids; Z90.710 Acquired absence of both cervix and uterus; Z90.722 Acquired absence of ovaries, bilateral
CPT/HCPCS: 80053; 81001; 85025; 86304; 87086; 96375; 96413; 96417; J1200; J2405; J3490; J7050; J7060; Q2050; Q5107

== ENCOUNTER 2022-09-28 09:49 | Outpatient (CLI) | payer OTHER, SELFPAY ==
--- NOTE | 2022-09-28 11:00 | CT_ITS ---
WS: [id number] CT CHEST, ABDOMEN AND PELVIS WITH CONTRAST. HISTORY: Restaging ovarian cancer. TECHNIQUE: Contiguous 5 mm axial imaging performed through the chest, abdomen and pelvis with IV cont rast, oral contrast has been provided. Coronal and sagittal reformats chest. Coronal and sagittal ref ormats through the abdomen and pelvis. All CT scans at [facility] use at least one of these d ose optimization techniques: automated exposure control; mA and/or kV adjustment per patient size (in cludes targeted exams where dose is matched to clinical indication); or iterative reconstruction. CONTRAST: Omnipaque 350; 95 mL IV. DLP: 1585.15 mGy.cm COMPARISON: 04/05/2022, 01/24/[address]: Mild volume loss in the LEFT thorax with curvilinear atelectasis LEFT upper lobe which is u nchanged. No mass or nodules. No pneumonia. No pericardial or pleural effusions. Heart size is normal . LEFT subclavian Port-A-Cath. No mediastinal or hilar adenopathy. Abdomen CT: Normal appearance of the liver and spleen. Prior cholecystectomy. Mild pancreatic atrophy . No adrenal mass. Kidneys are normally enhancing. Small cortical RIGHT renal nodules are unchanged i n size. Atherosclerosis aorta. LEFT lower quadrant colostomy. Significant improvement in appearance of the cystic/fluid collections and the peritoneal carcinomatos is since 01/24/2022. Numerous omental and mesenteric implants persist. 15 mm LEFT upper quadrant perit elizabeth implant. There is a small implant at the gallbladder fossa. Implants along the transverse colon with wall thickening measuring up to 10 mm in diameter. This actually appears progressed since the p rior examination. RIGHT paracolic gutter implant 12 mm. Omental caking along the anterior peritoneum. Pelvic implant centrally measures 20 mm. Largest central mesenteric implant measures [address]: Prior hysterectomy. Urinary bladder is only minimally distended. Rectal sutures are identi fied. No adjacent adenopathy. CT/CT chest abd pel w con* IMPRESSION: 1. No metastatic nodules or adenopathy within the chest. Stable curvilinear at electasis or scar LEFT upper lobe. 2. Majority of the carcinomatosis and implants within the abdomen and pelvis h ave improved. The cystic collections in the pelvis have essentially resolved. 3. Progression of the mesenteric implants in the central upper abdomen involvi ng the transverse colon. There is no obstruction of the colon but numerous impl ants are now identified along the transverse colon. 4. No ascites. 5. LEFT lower quadrant colostomy.
[2022-09-28] MEDS: iohexol 350 mg/mL 500 mL Btl (per mL) IV (11:16)
== END 2022-09-28 09:50 | disposition home or self-care (01) ==
LOC: RAD 09:51
PROVIDERS: PCP Internal Medicine; Visit Provider Internal Medicine Medical Oncology
DX: C56.9 Malignant neoplasm of unspecified ovary (principal)
CPT/HCPCS: 71260; 74177; Q9967

== ENCOUNTER 2022-10-05 10:00 | Oncology outpatient (recurring) (ONCR) | payer OTHER, SELFPAY ==
[2022-09-19] MEDS: sodium chloride 0.9% 1,000 ML 999 ML IV (13:16)
[2022-09-19 13:17] VITALS: BP 150/92; PULSE 74; RESP 16; TEMP 37; O2SAT 100
[2022-09-19 14:26] VITALS: BP 149/90; PULSE 75; TEMP 37.1; O2SAT 100
[2022-10-05 10:45] LABS: Basophils % 1.4 %; Eosinophils # 0.2 10^3/uL (0.0-0.8); Eosinophils % 6.8 %; Hemoglobin 8.7 g/dL (11.5-15.3); Lymphocytes # 0.8 10^3/uL (0.8-4.8); Mean Corpuscular HGB Conc 31.1 g/dL (30.0-36.0); Mean Corpuscular Hemoglobin 30.3 pg (28.0-34.0); Mean Corpuscular Volume 97.6 fl (81-99); Mean Platelet Volume 9.1 fL (7.4-10.4); Monocytes # 0.4 10^3/uL (0.2-0.9); Monocytes % 12.2 %; Neutrophils # 1.55 10^3/uL (1.8-7.7); Neutrophils % 52.3 %; Nucleated Red Blood Cells % 0 %; Platelet Count 234 10^3/cmm (130-400); Red Blood Count 2.87 10^6/uL (4.1-5.3); Red Cell Distribution Width 15.7 % (12.1-15.1)
[2022-10-05 11:24] LABS: Alanine Aminotransferase 10 U/L (0-33); Albumin Level 3.6 g/dL (3.5-5.2); Alkaline Phosphatase 59 U/L (35-105); Anion Gap 12.6 (5-19); Aspartate Amino Transferase 18 U/L (0-32); Blood Urea Nitrogen 20 mg/dL (6-20); CA 125 31.9 U/mL (0-35); Calcium 8.9 mg/dL (8.5-10.5); Carbon Dioxide 26 mmol/L (22-29); Chloride 107 mmol/L (98-107); Glomerular Filtration Rate 46.1 mL/min (90-130); Glucose 117 mg/dL (65-115); Osmolality Calculated 298 mOsm/kg (285-295); Potassium 3.6 mmol/L (3.5-5.1); Sodium 142 mmol/L (136-145); Total Bilirubin 0.2 mg/dL (0.15-1.2); Total Protein 6.6 g/dL (6.6-8.7)
[2022-10-05 12:53] LABS: Ferritin 409 ng/mL (15-150); Iron 57 ug/dL (37-145); Percent Saturation 24.6 % (20-50); Total Iron Binding Capacity 231 mcg/dl; Unsaturated Iron Binding 174 ug/dL (112-347)
== END 2022-10-08 23:59 | disposition home or self-care (01) ==
PROVIDERS: Nurse Practitioner; PCP Internal Medicine; Visit Provider Internal Medicine Medical Oncology
DX: C56.3 Malignant neoplasm of bilateral ovaries; C78.6 Secondary malignant neoplasm of retroperitoneum and peritoneum; D64.81 Anemia due to antineoplastic chemotherapy; D64.9 Anemia, unspecified; Z79.899 Other long term (current) drug therapy
CPT/HCPCS: 36591; 80053; 82274; 82728; 83540; 83550; 85025; 86304; 96365; J7030

== ENCOUNTER 2022-10-21 09:46 | Oncology outpatient (recurring) (ONCR) | payer MEDICAID, SELFPAY ==
[2022-10-21 10:43] LABS: Basophils % 0.5 %; Eosinophils # 0.4 10^3/uL (0.0-0.8); Eosinophils % 7.7 %; Hemoglobin 9.6 g/dL (11.5-15.3); Lymphocytes # 1.1 10^3/uL (0.8-4.8); Lymphocytes % 18.5 %; Mean Corpuscular Hemoglobin 29.3 pg (28.0-34.0); Mean Corpuscular Volume 97.6 fl (81-99); Mean Platelet Volume 9.3 fL (7.4-10.4); Monocytes # 0.5 10^3/uL (0.2-0.9); Monocytes % 9.2 %; Neutrophils # 3.65 10^3/uL (1.8-7.7); Neutrophils % 63.8 %; Nucleated Red Blood Cells % 0 %; Platelet Count 241 10^3/cmm (130-400); Red Blood Count 3.28 10^6/uL (4.1-5.3); Red Cell Distribution Width 14.3 % (12.1-15.1); White Blood Count 5.7 10^3/uL (4.0-10.0)
[2022-10-21 10:59] LABS: Alanine Aminotransferase 13 U/L (0-33); Alkaline Phosphatase 63 U/L (35-105); Anion Gap 12.8 (5-19); Aspartate Amino Transferase 20 U/L (0-32); Blood Urea Nitrogen 21 mg/dL (6-20); Calcium 9.8 mg/dL (8.5-10.5); Carbon Dioxide 28 mmol/L (22-29); Chloride 103 mmol/L (98-107); Globulin 3.1 g/dL (1.3-4.6); Glomerular Filtration Rate 46.1 mL/min (90-130); Glucose 91 mg/dL (65-115); Iron 42 ug/dL (37-145); Osmolality Calculated 293 mOsm/kg (285-295); Percent Saturation 16.2 % (20-50); Potassium 3.8 mmol/L (3.5-5.1); Sodium 140 mmol/L (136-145); Total Bilirubin 0.3 mg/dL (0.15-1.2); Total Iron Binding Capacity 259 mcg/dl; Total Protein 7.1 g/dL (6.6-8.7); Unsaturated Iron Binding 217 ug/dL (112-347)
== END 2022-11-08 23:59 | disposition home or self-care (01) ==
PROVIDERS: PCP Internal Medicine; Visit Provider Internal Medicine Medical Oncology
DX: D64.9 Anemia, unspecified (principal)
CPT/HCPCS: 36591; 80053; 83540; 83550; 85025

== ENCOUNTER 2022-12-06 11:00 | Oncology outpatient (recurring) (ONCR) | payer MEDICAID, SELFPAY ==
[2022-11-09] MEDS: alteplase 1 mg/mL SDV 2 mL 2 MG INTRACATH (11:00)
[2022-11-09 11:42] LABS: Basophils # 0.1 10^3/uL (0.0-0.1); Basophils % 1.2 %; Eosinophils # 0.4 10^3/uL (0.0-0.8); Eosinophils % 7.4 %; Hematocrit 33.6 % (37.0-47.0); Hemoglobin 10.3 g/dL (11.5-15.3); Lymphocytes % 18.8 %; Mean Corpuscular HGB Conc 30.7 g/dL (30.0-36.0); Mean Corpuscular Hemoglobin 28.7 pg (28.0-34.0); Mean Corpuscular Volume 93.6 fl (81-99); Mean Platelet Volume 9.5 fL (7.4-10.4); Monocytes # 0.4 10^3/uL (0.2-0.9); Monocytes % 7.4 %; Neutrophils # 3.36 10^3/uL (1.8-7.7); Nucleated Red Blood Cells % 0 %; Platelet Count 235 10^3/cmm (130-400); Red Blood Count 3.59 10^6/uL (4.1-5.3); Red Cell Distribution Width 13.9 % (12.1-15.1); White Blood Count 5.2 10^3/uL (4.0-10.0)
[2022-11-09 12:15] LABS: Alanine Aminotransferase 12 U/L (0-33); Albumin Level 4.2 g/dL (3.5-5.2); Alkaline Phosphatase 67 U/L (35-105); Aspartate Amino Transferase 20 U/L (0-32); Blood Urea Nitrogen 17 mg/dL (6-20); Calcium 9.5 mg/dL (8.5-10.5); Carbon Dioxide 29 mmol/L (22-29); Chloride 101 mmol/L (98-107); Creatinine Clr Calc Pharmacy 58.7137; Globulin 2.8 g/dL (1.3-4.6); Glomerular Filtration Rate 56.9 mL/min (90-130); Glucose 84 mg/dL (65-115); Osmolality Calculated 289 mOsm/kg (285-295); Sodium 139 mmol/L (136-145); Total Bilirubin 0.3 mg/dL (0.15-1.2)
[2022-11-09 12:35] VITALS: BP 143/85; PULSE 73; RESP 18; TEMP 36.7; O2SAT 99
== END 2022-12-06 23:59 | disposition home or self-care (01) ==
PROVIDERS: PCP Internal Medicine; Visit Provider Internal Medicine Medical Oncology
DX: D39.9 Neoplasm of uncertain behavior of female genital organ, unspecified (principal); T82.9XXA Unspecified complication of cardiac and vascular prosthetic device, implant and graft, initial encounter; Y71.2 Prosthetic and other implants, materials and accessory cardiovascular devices associated with adverse incidents
CPT/HCPCS: 36591; 36593; 80053; 85025; 86850; 86870; 86900; J2997

== ENCOUNTER 2022-12-07 11:02 | Oncology outpatient (recurring) (ONCR) | payer MEDICAID, SELFPAY | END 2023-01-06 23:59 | disposition home or self-care (01) | PROVIDERS: PCP Internal Medicine; Visit Provider Internal Medicine Medical Oncology | DX: Z45.2 Encounter for adjustment and management of vascular access device ==

== ENCOUNTER 2023-01-17 13:08 | Oncology outpatient (recurring) (ONCR) | payer MEDICAID, SELFPAY ==
[2023-01-17 13:10] VITALS: BP 119/67; PULSE 78; RESP 18; TEMP 36.6; O2SAT 98
== END 2023-02-05 23:59 | disposition home or self-care (01) ==
LOC: ONCMED 13:09
PROVIDERS: PCP Internal Medicine; Visit Provider Internal Medicine Medical Oncology
DX: Z45.2 Encounter for adjustment and management of vascular access device (principal)

== ENCOUNTER 2023-02-22 07:59 | Oncology outpatient (recurring) (ONCR) | payer MEDICAID, SELFPAY ==
[2023-02-22] VITALS (7 sets, daily range): BP systolic 122–137; BP diastolic 78–85; PULSE 74–81; RESP 16; TEMP 36.4–37.1; O2SAT 95–98; BMI 28.1
[2023-02-22 08:28] LABS: Basophils # 0.1 10^3/uL (0.0-0.1); Basophils % 0.9 %; Eosinophils # 0.2 10^3/uL (0.0-0.8); Eosinophils % 2.8 %; Hematocrit 29.6 % (37.0-47.0); Hemoglobin 8.7 g/dL (11.5-15.3); Lymphocytes # 1.1 10^3/uL (0.8-4.8); Lymphocytes % 16.4 %; Mean Corpuscular HGB Conc 29.4 g/dL (30.0-36.0); Mean Corpuscular Volume 88.4 fl (81-99); Mean Platelet Volume 8.9 fL (7.4-10.4); Monocytes # 0.6 10^3/uL (0.2-0.9); Monocytes % 8.1 %; Neutrophils # 4.82 10^3/uL (1.8-7.7); Neutrophils % 71.4 %; Nucleated Red Blood Cells % 0 %; Platelet Count 361 10^3/cmm (130-400); Red Blood Count 3.35 10^6/uL (4.1-5.3); Red Cell Distribution Width 15.2 % (12.1-15.1); White Blood Count 6.8 10^3/uL (4.0-10.0)
[2023-02-22 08:55] LABS: Alanine Aminotransferase 9 U/L (0-33); Alkaline Phosphatase 77 U/L (35-105); Anion Gap 18.2 (5-19); Aspartate Amino Transferase 17 U/L (0-32); Blood Urea Nitrogen 28 mg/dL (6-20); Calcium 9.6 mg/dL (8.5-10.5); Carbon Dioxide 27 mmol/L (22-29); Chloride 98 mmol/L (98-107); Globulin 3.4 g/dL (1.3-4.6); Glomerular Filtration Rate 28.9 mL/min (90-130); Glucose 88 mg/dL (65-115); Osmolality Calculated 293 mOsm/kg (285-295); Potassium 4.2 mmol/L (3.5-5.1); Sodium 139 mmol/L (136-145); Total Bilirubin 0.2 mg/dL (0.15-1.2); Total Protein 7.4 g/dL (6.6-8.7)
[2023-02-22] MEDS: acetaminophen 325 mg Tablet 650 MG PO (11:42)
[2023-02-22 11:44] LABS: CA 125 117.7 U/mL (0-35); Magnesium 1.5 mg/dL (1.7-2.3)
[2023-02-22] MEDS: dextrose 5% 250 ML 75 ML IV (11:44)
[2023-02-22] MEDS: diphenhydrAMINE 50 mg/mL SDV 1mL 25 MG IVP (11:47)
[2023-02-22] MEDS: famotidine 20 mg/2 mL INJ IVP (11:51)
[2023-02-22] MEDS: palonosetron 0.25 mg/5 mL SDV IVP (11:54)
== END 2023-02-22 23:59 | disposition home or self-care (01) ==
PROVIDERS: Nurse Practitioner; PCP Internal Medicine; Visit Provider Internal Medicine Medical Oncology
DX: Z51.11 Encounter for antineoplastic chemotherapy (principal); C78.6 Secondary malignant neoplasm of retroperitoneum and peritoneum; C56.9 Malignant neoplasm of unspecified ovary; Z79.899 Other long term (current) drug therapy
CPT/HCPCS: 80053; 83735; 85025; 86304; 96367; 96375; 96413; 96415; C9146; J1100; J1200; J1642; J2469; J3490; J7060

== ENCOUNTER 2023-03-01 08:07 | Oncology outpatient (recurring) (ONCR) | payer MEDICAID, SELFPAY ==
[2023-03-01 08:20] VITALS: BMI 27.8
[2023-03-01 08:31] VITALS: BP 127/79; PULSE 71; RESP 18; TEMP 37.3; O2SAT 96
[2023-03-01 08:38] LABS: Basophils # 0.1 10^3/uL (0.0-0.1); Basophils % 0.9 %; Eosinophils # 0.1 10^3/uL (0.0-0.8); Eosinophils % 2.5 %; Hematocrit 29.4 % (37.0-47.0); Hemoglobin 8.6 g/dL (11.5-15.3); Lymphocytes # 1.2 10^3/uL (0.8-4.8); Lymphocytes % 21.7 %; Mean Corpuscular HGB Conc 29.3 g/dL (30.0-36.0); Mean Corpuscular Hemoglobin 25.6 pg (28.0-34.0); Mean Corpuscular Volume 87.5 fl (81-99); Mean Platelet Volume 9.1 fL (7.4-10.4); Monocytes # 0.5 10^3/uL (0.2-0.9); Monocytes % 9.2 %; Neutrophils # 3.67 10^3/uL (1.8-7.7); Neutrophils % 65.2 %; Nucleated Red Blood Cells % 0 %; Platelet Count 247 10^3/cmm (130-400); Red Blood Count 3.36 10^6/uL (4.1-5.3); Red Cell Distribution Width 15.5 % (12.1-15.1); White Blood Count 5.6 10^3/uL (4.0-10.0)
[2023-03-01 08:53] LABS: Alanine Aminotransferase 12 U/L (0-33); Albumin Level 3.8 g/dL (3.5-5.2); Alkaline Phosphatase 88 U/L (35-105); Anion Gap 15.9 (5-19); Aspartate Amino Transferase 23 U/L (0-32); Blood Urea Nitrogen 23 mg/dL (6-20); Calcium 9.4 mg/dL (8.5-10.5); Carbon Dioxide 28 mmol/L (22-29); Chloride 100 mmol/L (98-107); Globulin 3.6 g/dL (1.3-4.6); Glomerular Filtration Rate 33.1 mL/min (90-130); Glucose 88 mg/dL (65-115); Osmolality Calculated 293 mOsm/kg (285-295); Potassium 3.9 mmol/L (3.5-5.1); Sodium 140 mmol/L (136-145); Total Bilirubin 0.3 mg/dL (0.15-1.2); Total Protein 7.4 g/dL (6.6-8.7)
[2023-03-01 09:41] LABS: Iron 39 ug/dL (37-145); Percent Saturation 18.4 % (20-50); Total Iron Binding Capacity 211 mcg/dl; Unsaturated Iron Binding 172 ug/dL (112-347)
== END 2023-03-08 23:59 | disposition home or self-care (01) ==
PROVIDERS: Nurse Practitioner; PCP Internal Medicine; Visit Provider Internal Medicine Medical Oncology
DX: Z45.2 Encounter for adjustment and management of vascular access device (principal); C56.9 Malignant neoplasm of unspecified ovary; D64.9 Anemia, unspecified
CPT/HCPCS: 36591; 80053; 83540; 83550; 85025; J1642

== ENCOUNTER 2023-03-15 08:30 | Oncology outpatient (recurring) (ONCR) | payer MEDICAID, SELFPAY ==
[2023-03-10 10:25] VITALS: BP 150/89; PULSE 67; TEMP 37.3; O2SAT 98
[2023-03-10] MEDS: sodium chloride 0.9% 250 ML 100 ML IV (10:41)
[2023-03-10] MEDS: iron sucrose 200 MG in sodium chloride 0.9% (100 ml) 100 ML 220 MG IV (10:42)
[2023-03-10 11:30] VITALS: BP 149/90; PULSE 67; TEMP 36.9; O2SAT 97
[2023-03-13 15:00] VITALS: BP 134/84; PULSE 76; TEMP 37.1; O2SAT 99
[2023-03-13] MEDS: sodium chloride 0.9% 500 ML 999 ML IV (15:19)
[2023-03-13] MEDS: iron sucrose 200 MG in sodium chloride 0.9% (100 ml) 100 ML 220 MG IV (15:20)
[2023-03-13 16:39] VITALS: BP 146/84; PULSE 71; RESP 16; TEMP 37.2; O2SAT 98
[2023-03-15 08:51] LABS: Basophils # 0.1 10^3/uL (0.0-0.1); Basophils % 1.3 %; Eosinophils # 0.2 10^3/uL (0.0-0.8); Eosinophils % 2.8 %; Hematocrit 32.9 % (37.0-47.0); Hemoglobin 9.6 g/dL (11.5-15.3); Lymphocytes # 1.1 10^3/uL (0.8-4.8); Lymphocytes % 21.1 %; Mean Corpuscular HGB Conc 29.2 g/dL (30.0-36.0); Mean Corpuscular Volume 89.2 fl (81-99); Mean Platelet Volume 9.4 fL (7.4-10.4); Monocytes # 0.4 10^3/uL (0.2-0.9); Monocytes % 7.9 %; Neutrophils # 3.61 10^3/uL (1.8-7.7); Neutrophils % 66.7 %; Nucleated Red Blood Cells % 0 %; Platelet Count 292 10^3/cmm (130-400); Red Blood Count 3.69 10^6/uL (4.1-5.3); Red Cell Distribution Width 17.3 % (12.1-15.1); White Blood Count 5.4 10^3/uL (4.0-10.0)
[2023-03-15 09:08] VITALS: BP 142/86; PULSE 74; RESP 18; TEMP 37.3; O2SAT 98
[2023-03-15 09:14] LABS: Alanine Aminotransferase 19 U/L (0-33); Albumin Level 3.9 g/dL (3.5-5.2); Alkaline Phosphatase 68 U/L (35-105); Aspartate Amino Transferase 29 U/L (0-32); Blood Urea Nitrogen 18 mg/dL (6-20); Calcium 9.4 mg/dL (8.5-10.5); Carbon Dioxide 29 mmol/L (22-29); Chloride 100 mmol/L (98-107); Globulin 3.3 g/dL (1.3-4.6); Glomerular Filtration Rate 46.1 mL/min (90-130); Glucose 85 mg/dL (65-115); Osmolality Calculated 289 mOsm/kg (285-295); Sodium 139 mmol/L (136-145); Total Bilirubin 0.3 mg/dL (0.15-1.2); Total Protein 7.2 g/dL (6.6-8.7)
[2023-03-15 11:07] LABS: Magnesium 1.5 mg/dL (1.7-2.3)
[2023-03-15] MEDS: sodium chloride 0.9% 250 ML 100 ML IV (11:22)
[2023-03-15] MEDS: acetaminophen 325 mg Tablet 650 MG PO (11:22)
[2023-03-15] MEDS: diphenhydrAMINE 50 mg/mL SDV 1mL 25 MG IVP (11:24)
[2023-03-15 12:01] LABS: CA 125 67.2 U/mL (0-35)
[2023-03-15] MEDS: iron sucrose 200 MG in sodium chloride 0.9% (100 ml) 100 ML 220 MG IV (12:15)
[2023-03-15] MEDS: dextrose 5% 250 ML 100 ML IV (13:07)
[2023-03-15 15:00] VITALS: BP 137/84; PULSE 75; TEMP 37.1; O2SAT 97
== END 2023-03-15 23:59 | disposition home or self-care (01) ==
PROVIDERS: Nurse Practitioner; PCP Internal Medicine; Visit Provider Internal Medicine Medical Oncology
DX: Z51.11 Encounter for antineoplastic chemotherapy (principal); C56.9 Malignant neoplasm of unspecified ovary; Z45.2 Encounter for adjustment and management of vascular access device
CPT/HCPCS: 80053; 83735; 85025; 86304; 96365; 96367; 96375; 96413; 96415; C9146; J1100; J1200; J1642; J1756; J7040; J7050; J7060

== ENCOUNTER 2023-04-05 09:30 | Oncology outpatient (recurring) (ONCR) | payer MEDICAID, SELFPAY ==
[2023-03-17] MEDS: sodium chloride 0.9% 1,000 ML 999 ML IV (09:38)
[2023-03-17] MEDS: famotidine 20 mg/2 mL INJ IVP (09:38)
[2023-03-17] MEDS: iron sucrose 200 MG in sodium chloride 0.9% (100 ml) 100 ML 220 MG IV (10:05)
[2023-03-17 11:55] VITALS: BP 99/68; PULSE 71; TEMP 37.2; O2SAT 100
[2023-03-20 14:51] VITALS: BP 165/87; PULSE 75; RESP 16; TEMP 37.3; O2SAT 97
[2023-03-20] MEDS: sodium chloride 0.9% 500 ML 999 ML IV (15:26)
[2023-03-20] MEDS: ondansetron 2 mg/ML SDV 2 mL 8 MG IVP (15:26)
[2023-03-20] MEDS: iron sucrose 200 MG in sodium chloride 0.9% (100 ml) 100 ML 220 MG IV (15:43)
[2023-03-20 16:20] VITALS: BP 162/88; PULSE 73; RESP 16; TEMP 37.1; O2SAT 97
[2023-04-05 09:46] VITALS: BP 123/75; PULSE 84; RESP 18; TEMP 36.3; O2SAT 98
[2023-04-05 10:02] LABS: Basophils % 0.8 %; Eosinophils # 0.1 10^3/uL (0.0-0.8); Eosinophils % 1.9 %; Hematocrit 34.9 % (37.0-47.0); Hemoglobin 10.5 g/dL (11.5-15.3); Lymphocytes # 0.9 10^3/uL (0.8-4.8); Lymphocytes % 18.9 %; Mean Corpuscular HGB Conc 30.1 g/dL (30.0-36.0); Mean Corpuscular Hemoglobin 27.1 pg (28.0-34.0); Mean Corpuscular Volume 90.2 fl (81-99); Mean Platelet Volume 9.1 fL (7.4-10.4); Monocytes # 0.4 10^3/uL (0.2-0.9); Monocytes % 8.3 %; Neutrophils # 3.29 10^3/uL (1.8-7.7); Neutrophils % 69.9 %; Nucleated Red Blood Cells % 0 %; Platelet Count 236 10^3/cmm (130-400); Red Blood Count 3.87 10^6/uL (4.1-5.3); Red Cell Distribution Width 18.7 % (12.1-15.1); White Blood Count 4.7 10^3/uL (4.0-10.0)
[2023-04-05 10:36] LABS: Alanine Aminotransferase 22 U/L (0-33); Albumin Level 4.2 g/dL (3.5-5.2); Alkaline Phosphatase 70 U/L (35-105); Anion Gap 13.9 (5-19); Aspartate Amino Transferase 24 U/L (0-32); Blood Urea Nitrogen 23 mg/dL (6-20); CA 125 34.2 U/mL (0-35); Calcium 9.4 mg/dL (8.5-10.5); Carbon Dioxide 27 mmol/L (22-29); Chloride 100 mmol/L (98-107); Globulin 2.8 g/dL (1.3-4.6); Glomerular Filtration Rate 42.1 mL/min (90-130); Glucose 80 mg/dL (65-115); Iron 79 ug/dL (37-145); Magnesium 1.5 mg/dL (1.7-2.3); Osmolality Calculated 287 mOsm/kg (285-295); Percent Saturation 33.4 % (20-50); Potassium 3.9 mmol/L (3.5-5.1); Sodium 137 mmol/L (136-145); Total Bilirubin 0.5 mg/dL (0.15-1.2); Total Iron Binding Capacity 236 mcg/dl; Unsaturated Iron Binding 157 ug/dL (112-347)
[2023-04-05 10:48] LABS: Ferritin 1466 ng/mL (15-150)
[2023-04-05 12:00] VITALS: BMI 28.0
[2023-04-05] MEDS: dextrose 5% 250 ML 75 ML IV (12:47)
[2023-04-05] MEDS: acetaminophen 325 mg Tablet 650 MG PO (12:47)
[2023-04-05] MEDS: diphenhydrAMINE 50 mg/mL SDV 1mL 25 MG IVP (12:51)
[2023-04-05 15:07] VITALS: BP 135/85; PULSE 79; RESP 16; TEMP 36.2; O2SAT 95
== END 2023-04-05 23:59 | disposition home or self-care (01) ==
PROVIDERS: Nurse Practitioner; PCP Internal Medicine; Visit Provider Internal Medicine Medical Oncology
DX: Z51.11 Encounter for antineoplastic chemotherapy; C56.3 Malignant neoplasm of bilateral ovaries; C78.6 Secondary malignant neoplasm of retroperitoneum and peritoneum; D50.9 Iron deficiency anemia, unspecified; E86.0 Dehydration; Z79.899 Other long term (current) drug therapy
CPT/HCPCS: 80053; 82728; 83540; 83550; 83735; 85025; 86304; 96361; 96365; 96367; 96375; 96413; 96415; C9146; J1100; J1200; J1642; J1756; J2405; J3490; J7030; J7040; J7060

== ENCOUNTER 2023-04-26 10:06 | Oncology outpatient (recurring) (ONCR) | payer MEDICAID, SELFPAY ==
[2023-04-26 10:07] VITALS: BMI 28.7
[2023-04-26 10:08] VITALS: BP 136/80; PULSE 80; RESP 18; TEMP 36.4; O2SAT 95
[2023-04-26 10:19] LABS: Basophils # 0.1 10^3/uL (0.0-0.1); Basophils % 1.1 %; Eosinophils # 0.1 10^3/uL (0.0-0.8); Eosinophils % 2.8 %; Hematocrit 38.8 % (37.0-47.0); Hemoglobin 12.1 g/dL (11.5-15.3); Lymphocytes # 1.1 10^3/uL (0.8-4.8); Lymphocytes % 24.4 %; Mean Corpuscular HGB Conc 31.2 g/dL (30.0-36.0); Mean Corpuscular Hemoglobin 28.6 pg (28.0-34.0); Mean Corpuscular Volume 91.7 fl (81-99); Mean Platelet Volume 8.9 fL (7.4-10.4); Monocytes # 0.4 10^3/uL (0.2-0.9); Neutrophils # 2.91 10^3/uL (1.8-7.7); Neutrophils % 62.3 %; Nucleated Red Blood Cells % 0 %; Platelet Count 253 10^3/cmm (130-400); Red Blood Count 4.23 10^6/uL (4.1-5.3); White Blood Count 4.7 10^3/uL (4.0-10.0)
[2023-04-26 11:05] LABS: Alanine Aminotransferase 29 U/L (0-33); Alkaline Phosphatase 82 U/L (35-105); Anion Gap 13.9 (5-19); Aspartate Amino Transferase 31 U/L (0-32); Blood Urea Nitrogen 19 mg/dL (6-20); CA 125 25.9 U/mL (0-35); Calcium 9.4 mg/dL (8.5-10.5); Carbon Dioxide 28 mmol/L (22-29); Chloride 100 mmol/L (98-107); Globulin 3.1 g/dL (1.3-4.6); Glucose 84 mg/dL (65-115); Osmolality Calculated 287 mOsm/kg (285-295); Potassium 3.9 mmol/L (3.5-5.1); Sodium 138 mmol/L (136-145); Total Bilirubin 0.4 mg/dL (0.15-1.2); Total Protein 7.1 g/dL (6.6-8.7)
[2023-04-26] MEDS: dextrose 5% 250 ML 75 ML IV (11:58)
[2023-04-26] MEDS: acetaminophen 325 mg Tablet 650 MG PO (11:59)
[2023-04-26] MEDS: diphenhydrAMINE 50 mg/mL SDV 1mL 25 MG IVP (12:00)
[2023-04-26 13:00] VITALS: BP 129/77; PULSE 73; RESP 16; TEMP 36.2; O2SAT 97
[2023-04-26 13:30] VITALS: BP 129/75; PULSE 76; RESP 16; TEMP 35.9; O2SAT 96
[2023-04-26 14:00] VITALS: BP 130/76; PULSE 77; RESP 16; TEMP 36.2; O2SAT 98
[2023-04-26 15:20] VITALS: BP 126/77; PULSE 80; RESP 16; TEMP 36.2; O2SAT 96
[2023-04-26 15:43] VITALS: BP 124/77; PULSE 77; RESP 16; TEMP 36.2; O2SAT 96
== END 2023-04-26 23:59 | disposition home or self-care (01) ==
PROVIDERS: PCP Internal Medicine; Visit Provider Internal Medicine Medical Oncology
DX: Z51.11 Encounter for antineoplastic chemotherapy (principal); C56.9 Malignant neoplasm of unspecified ovary; Z45.2 Encounter for adjustment and management of vascular access device
CPT/HCPCS: 80053; 85025; 86304; 96375; 96413; C9146; J1100; J1200; J1642; J7060

== ENCOUNTER 2023-05-25 08:30 | Oncology outpatient (recurring) (ONCR) | payer MEDICAID, SELFPAY ==
--- NOTE | 2023-05-12 11:31 | PC.PHAR ---
DR VARGHESE FROM [facility] PHONED ME THIS MORNING. SHE STATES PATIENT'S VISUAL ACUITY HAS DECREASED 2 LINES AND THAT SHE IS SEEING CORNEAL CHANGES. SHE IS CONCERNED THAT PATIENT IS NOT UTILIZING STEROID DROPS PRESCRIBED. SHE RE-EDUCATED PATIENT IN REGARDS TO THE PROPER DOSAGE OF DROPS AND EDUCATED SPOUSE WELL. I'VE INFORMED DR SPENCER OF THIS. WHEN HE SEE PATIENT THIS WEEK HE WILL HOLD OR REDUCE DOSE ACCORDING TO DR VARGHESE'S NOTE.
[2023-05-17 10:14] VITALS: BP 129/80; PULSE 82; RESP 18; TEMP 36.5; O2SAT 97
[2023-05-17 10:15] VITALS: BMI 29.4
[2023-05-17 10:34] LABS: Basophils # 0.1 10^3/uL (0.0-0.1); Basophils % 0.9 %; Eosinophils # 0.3 10^3/uL (0.0-0.8); Eosinophils % 4.6 %; Hematocrit 37.6 % (37.0-47.0); Hemoglobin 11.6 g/dL (11.5-15.3); Lymphocytes # 0.9 10^3/uL (0.8-4.8); Lymphocytes % 16.9 %; Mean Corpuscular HGB Conc 30.9 g/dL (30.0-36.0); Mean Corpuscular Hemoglobin 28.4 pg (28.0-34.0); Mean Corpuscular Volume 92.2 fl (81-99); Mean Platelet Volume 8.7 fL (7.4-10.4); Monocytes # 0.5 10^3/uL (0.2-0.9); Monocytes % 9.3 %; Neutrophils # 3.72 10^3/uL (1.8-7.7); Neutrophils % 67.8 %; Nucleated Red Blood Cells % 0 %; Platelet Count 291 10^3/cmm (130-400); Red Blood Count 4.08 10^6/uL (4.1-5.3); Red Cell Distribution Width 15.9 % (12.1-15.1); White Blood Count 5.5 10^3/uL (4.0-10.0)
[2023-05-17 11:17] LABS: Alanine Aminotransferase 33 U/L (0-33); Albumin Level 4.1 g/dL (3.5-5.2); Alkaline Phosphatase 80 U/L (35-105); Anion Gap 14.8 (5-19); Aspartate Amino Transferase 35 U/L (0-32); Blood Urea Nitrogen 22 mg/dL (6-20); Calcium 9.7 mg/dL (8.5-10.5); Carbon Dioxide 28 mmol/L (22-29); Chloride 99 mmol/L (98-107); Globulin 2.9 g/dL (1.3-4.6); Glomerular Filtration Rate 42.1 mL/min (90-130); Glucose 86 mg/dL (65-115); Osmolality Calculated 289 mOsm/kg (285-295); Potassium 3.8 mmol/L (3.5-5.1); Sodium 138 mmol/L (136-145); Total Bilirubin 0.4 mg/dL (0.15-1.2)
[2023-05-25 09:01] LABS: Basophils # 0.1 10^3/uL (0.0-0.1); Basophils % 1.2 %; Eosinophils # 0.3 10^3/uL (0.0-0.8); Eosinophils % 5.3 %; Hematocrit 37.3 % (37.0-47.0); Hemoglobin 11.8 g/dL (11.5-15.3); Lymphocytes # 1.1 10^3/uL (0.8-4.8); Lymphocytes % 21.7 %; Mean Corpuscular HGB Conc 31.6 g/dL (30.0-36.0); Mean Corpuscular Hemoglobin 28.8 pg (28.0-34.0); Mean Platelet Volume 8.3 fL (7.4-10.4); Monocytes # 0.4 10^3/uL (0.2-0.9); Neutrophils % 63.6 %; Nucleated Red Blood Cells % 0 %; Platelet Count 290 10^3/cmm (130-400); White Blood Count 4.9 10^3/uL (4.0-10.0)
[2023-05-25 09:36] LABS: Alanine Aminotransferase 20 U/L (0-33); Alkaline Phosphatase 71 U/L (35-105); Anion Gap 14.7 (5-19); Aspartate Amino Transferase 26 U/L (0-32); Blood Urea Nitrogen 20 mg/dL (6-20); CA 125 19.5 U/mL (0-35); Calcium 9.8 mg/dL (8.5-10.5); Carbon Dioxide 27 mmol/L (22-29); Chloride 101 mmol/L (98-107); Glomerular Filtration Rate 46.1 mL/min (90-130); Glucose 89 mg/dL (65-115); Osmolality Calculated 290 mOsm/kg (285-295); Potassium 3.7 mmol/L (3.5-5.1); Sodium 139 mmol/L (136-145); Total Bilirubin 0.5 mg/dL (0.15-1.2)
[2023-05-25] MEDS: dextrose 5% 250 ML 75 ML IV (10:26)
[2023-05-25] MEDS: diphenhydrAMINE 50 mg/mL SDV 1mL 25 MG IVP (10:30)
[2023-05-25] MEDS: acetaminophen 325 mg Tablet 650 MG PO (10:36)
[2023-05-25 13:15] VITALS: BP 118/72; PULSE 78; RESP 16; TEMP 36.7; O2SAT 98
== END 2023-05-25 23:59 | disposition home or self-care (01) ==
PROVIDERS: PCP Internal Medicine; Visit Provider Internal Medicine Medical Oncology
DX: Z51.11 Encounter for antineoplastic chemotherapy (principal); C56.9 Malignant neoplasm of unspecified ovary
CPT/HCPCS: 80053; 85025; 86304; 96367; 96375; 96413; 96415; C9146; J1100; J1200; J1642; J7060

== ENCOUNTER 2023-06-07 10:00 | Oncology outpatient (recurring) (ONCR) | payer MEDICAID, SELFPAY | END 2023-06-08 23:59 | disposition home or self-care (01) | PROVIDERS: PCP Internal Medicine; Visit Provider Internal Medicine Medical Oncology | DX: Z53.9 Procedure and treatment not carried out, unspecified reason ==

== ENCOUNTER 2023-06-14 11:57 | Oncology outpatient (recurring) (ONCR) | payer MEDICAID, SELFPAY ==
[2023-06-14] MEDS: acetaminophen 325 mg Tablet 650 MG PO (13:37)
[2023-06-14] MEDS: dextrose 5% 250 ML 75 ML IV (13:48)
[2023-06-14] MEDS: diphenhydrAMINE 50 mg/mL SDV 1mL 25 MG IVP (13:51)
[2023-06-14 16:45] VITALS: BP 128/67; PULSE 79; RESP 16; TEMP 37; O2SAT 95
== END 2023-06-14 23:59 | disposition home or self-care (01) ==
PROVIDERS: PCP Internal Medicine; Visit Provider Internal Medicine Medical Oncology
DX: Z51.11 Encounter for antineoplastic chemotherapy (principal); C56.9 Malignant neoplasm of unspecified ovary; Z45.2 Encounter for adjustment and management of vascular access device
CPT/HCPCS: 96367; 96375; 96413; 96415; C9146; J1100; J1200; J1642; J7060

== ENCOUNTER 2023-07-05 09:00 | Oncology outpatient (recurring) (ONCR) | payer MEDICAID, SELFPAY ==
[2023-07-05 09:25] VITALS: BP 118/75; PULSE 76; RESP 17; TEMP 36.9; O2SAT 98; BMI 30.1
[2023-07-05 09:49] LABS: Basophils # 0.1 10^3/uL (0.0-0.1); Basophils % 1.1 %; Eosinophils # 0.2 10^3/uL (0.0-0.8); Eosinophils % 2.7 %; Hematocrit 36.1 % (36-47); Lymphocytes % 17.9 %; Mean Corpuscular HGB Conc 31.9 g/dL (30-55); Mean Corpuscular Volume 90.9 fl (85-98); Mean Platelet Volume 8.8 fL (7.4-10.4); Monocytes # 0.5 10^3/uL (0.2-0.9); Monocytes % 9.5 %; Neutrophils # 3.74 10^3/uL (1.8-7.7); Neutrophils % 68.6 %; Nucleated Red Blood Cells % 0 %; Platelet Count 236 10^3/cmm (157-399); Red Blood Count 3.97 10^6/uL (3.85-5.65); Red Cell Distribution Width 13.9 % (12.1-15.1); White Blood Count 5.46 10^3/uL (3.29-11.43)
[2023-07-05 10:24] LABS: Alanine Aminotransferase 28 U/L (0-33); Albumin Level 4.1 g/dL (3.5-5.2); Alkaline Phosphatase 102 U/L (35-105); Anion Gap 11.7 (5-19); Aspartate Amino Transferase 36 U/L (0-32); Blood Urea Nitrogen 26 mg/dL (6-20); CA 125 17.6 U/mL (0-35); Calcium 9.4 mg/dL (8.5-10.5); Carbon Dioxide 29 mmol/L (22-29); Chloride 101 mmol/L (98-107); Globulin 2.8 g/dL (1.3-4.6); Glomerular Filtration Rate 46.1 mL/min (90-130); Glucose 98 mg/dL (65-115); Osmolality Calculated 291 mOsm/kg (285-295); Potassium 3.7 mmol/L (3.5-5.1); Sodium 138 mmol/L (136-145); Total Bilirubin 0.6 mg/dL (0.15-1.2); Total Protein 6.9 g/dL (6.6-8.7)
== END 2023-07-08 23:59 | disposition home or self-care (01) ==
PROVIDERS: PCP Internal Medicine; Visit Provider Internal Medicine Medical Oncology
DX: C56.9 Malignant neoplasm of unspecified ovary (principal)
CPT/HCPCS: 80053; 85025; 86304; J1642

== ENCOUNTER 2023-07-26 07:47 | Oncology outpatient (recurring) (ONCR) | payer MEDICAID, SELFPAY ==
[2023-07-26 08:03] VITALS: BP 122/77; PULSE 74; RESP 16; TEMP 36.6; O2SAT 98
[2023-07-26 08:23] LABS: Basophils # 0.1 10^3/uL (0.0-0.1); Basophils % 0.9 %; Eosinophils # 0.2 10^3/uL (0.0-0.8); Eosinophils % 3.7 %; Hematocrit 37.6 % (36-47); Lymphocytes # 1.1 10^3/uL (0.8-4.8); Lymphocytes % 19.9 %; Mean Corpuscular HGB Conc 31.6 g/dL (30-55); Mean Corpuscular Hemoglobin 29.4 pg (27-33); Mean Corpuscular Volume 92.8 fl (85-98); Mean Platelet Volume 8.8 fL (7.4-10.4); Monocytes # 0.5 10^3/uL (0.2-0.9); Monocytes % 8.8 %; Neutrophils # 3.62 10^3/uL (1.8-7.7); Neutrophils % 66.5 %; Nucleated Red Blood Cells % 0 %; Platelet Count 262 10^3/cmm (157-399); Red Blood Count 4.05 10^6/uL (3.85-5.65); Red Cell Distribution Width 13.4 % (12.1-15.1); White Blood Count 5.44 10^3/uL (3.29-11.43)
[2023-07-26 08:35] LABS: Alanine Aminotransferase 22 U/L (0-33); Albumin Level 4.4 g/dL (3.5-5.2); Alkaline Phosphatase 97 U/L (35-105); Aspartate Amino Transferase 32 U/L (0-32); Blood Urea Nitrogen 23 mg/dL (6-20); Calcium 9.8 mg/dL (8.5-10.5); Carbon Dioxide 28 mmol/L (22-29); Chloride 101 mmol/L (98-107); Globulin 2.9 g/dL (1.3-4.6); Glomerular Filtration Rate 41.9 mL/min (90-130); Glucose 92 mg/dL (65-115); Osmolality Calculated 291 mOsm/kg (285-295); Sodium 139 mmol/L (136-145); Total Bilirubin 0.6 mg/dL (0.15-1.2); Total Protein 7.3 g/dL (6.6-8.7)
[2023-07-26 08:36] LABS: Anion Gap 13.6 (5-19); Potassium 3.6 mmol/L (3.5-5.1)
[2023-07-26] MEDS: acetaminophen 325 mg Tablet 650 MG PO (09:04)
[2023-07-26] MEDS: dextrose 5% 250 ML 75 ML IV (09:05)
[2023-07-26] MEDS: diphenhydrAMINE 50 mg/mL SDV 1mL 25 MG IVP (09:06)
[2023-07-26 09:27] LABS: CA 125 18.6 U/mL (0-35)
[2023-07-26 10:00] VITALS: BP 119/75; PULSE 70; RESP 17; TEMP 36.9; O2SAT 99
[2023-07-26 11:53] VITALS: BP 122/70; PULSE 74; RESP 18; TEMP 36.1; O2SAT 97
== END 2023-07-26 23:59 | disposition home or self-care (01) ==
PROVIDERS: PCP Internal Medicine; Visit Provider Internal Medicine Medical Oncology
DX: C56.9 Malignant neoplasm of unspecified ovary (principal); Z51.11 Encounter for antineoplastic chemotherapy; C78.6 Secondary malignant neoplasm of retroperitoneum and peritoneum
CPT/HCPCS: 80053; 85025; 86304; 96367; 96375; 96413; 96415; C9146; J1100; J1200; J1642; J7060

== ENCOUNTER 2023-08-16 08:47 | Oncology outpatient (recurring) (ONCR) | payer MEDICAID, SELFPAY ==
[2023-08-16 09:01] VITALS: BP 122/80; PULSE 78; RESP 16; TEMP 36.3; O2SAT 94
[2023-08-16 09:16] LABS: Basophils # 0.1 10^3/uL (0.0-0.1); Basophils % 1.1 %; Eosinophils # 0.2 10^3/uL (0.0-0.8); Eosinophils % 4.3 %; Hematocrit 36.9 % (36-47); Lymphocytes % 21.8 %; Mean Corpuscular Hemoglobin 29.4 pg (27-33); Mean Platelet Volume 8.9 fL (7.4-10.4); Monocytes # 0.4 10^3/uL (0.2-0.9); Monocytes % 9.2 %; Neutrophils # 2.96 10^3/uL (1.8-7.7); Neutrophils % 63.2 %; Nucleated Red Blood Cells % 0 %; Platelet Count 280 10^3/cmm (157-399); Red Blood Count 4.01 10^6/uL (3.85-5.65); Red Cell Distribution Width 13.7 % (12.1-15.1); White Blood Count 4.68 10^3/uL (3.29-11.43)
[2023-08-16 09:44] LABS: Alanine Aminotransferase 38 U/L (0-33); Albumin Level 4.2 g/dL (3.5-5.2); Alkaline Phosphatase 92 U/L (35-105); Anion Gap 15.9 (5-19); Aspartate Amino Transferase 45 U/L (0-32); Blood Urea Nitrogen 20 mg/dL (6-20); Calcium 10.2 mg/dL (8.5-10.5); Carbon Dioxide 28 mmol/L (22-29); Chloride 102 mmol/L (98-107); Globulin 2.9 g/dL (1.3-4.6); Glucose 83 mg/dL (65-115); Osmolality Calculated 296 mOsm/kg (285-295); Potassium 3.9 mmol/L (3.5-5.1); Sodium 142 mmol/L (136-145); Total Bilirubin 0.5 mg/dL (0.15-1.2); Total Protein 7.1 g/dL (6.6-8.7)
[2023-08-16] MEDS: dextrose 5% 250 ML 75 ML IV (11:23)
[2023-08-16] MEDS: acetaminophen 325 mg Tablet 650 MG PO (11:23)
[2023-08-16] MEDS: diphenhydrAMINE 50 mg/mL SDV 1mL 25 MG IVP (11:24)
[2023-08-16 14:00] VITALS: BP 138/84; PULSE 78; RESP 16; TEMP 36.8; O2SAT 98
== END 2023-08-16 23:59 | disposition home or self-care (01) ==
PROVIDERS: Internal Medicine; PCP Internal Medicine; Visit Provider Internal Medicine Medical Oncology
DX: C56.9 Malignant neoplasm of unspecified ovary (principal); Z51.11 Encounter for antineoplastic chemotherapy; C78.6 Secondary malignant neoplasm of retroperitoneum and peritoneum
CPT/HCPCS: 80053; 85025; 86304; 96367; 96375; 96413; 96415; C9146; J1100; J1200; J1642; J7060

== ENCOUNTER 2023-09-06 07:35 | Oncology outpatient (recurring) (ONCR) | payer MEDICAID, SELFPAY ==
[2023-09-06 07:45] VITALS: BP 127/81; PULSE 75; RESP 16; TEMP 36.6; O2SAT 98
[2023-09-06 08:15] LABS: Basophils % 0.8 %; Eosinophils # 0.2 10^3/uL (0.0-0.8); Eosinophils % 3.9 %; Hematocrit 36.9 % (36-47); Lymphocytes # 1.1 10^3/uL (0.8-4.8); Lymphocytes % 23.3 %; Mean Corpuscular HGB Conc 31.4 g/dL (30-55); Mean Corpuscular Hemoglobin 28.9 pg (27-33); Mean Corpuscular Volume 91.8 fl (85-98); Mean Platelet Volume 9.2 fL (7.4-10.4); Monocytes # 0.5 10^3/uL (0.2-0.9); Monocytes % 10.1 %; Neutrophils # 2.98 10^3/uL (1.8-7.7); Neutrophils % 61.5 %; Nucleated Red Blood Cells % 0 %; Platelet Count 262 10^3/cmm (157-399); Red Blood Count 4.02 10^6/uL (3.85-5.65); Red Cell Distribution Width 13.9 % (12.1-15.1); White Blood Count 4.85 10^3/uL (3.29-11.43)
[2023-09-06 08:37] LABS: Alanine Aminotransferase 34 U/L (0-33); Alkaline Phosphatase 94 U/L (35-105); Anion Gap 15.1 (5-19); Aspartate Amino Transferase 57 U/L (0-32); Blood Urea Nitrogen 20 mg/dL (6-20); CA 125 18.1 U/mL (0-35); Calcium 10.6 mg/dL (8.5-10.5); Carbon Dioxide 27 mmol/L (22-29); Chloride 99 mmol/L (98-107); Glucose 104 mg/dL (65-115); Osmolality Calculated 289 mOsm/kg (285-295); Potassium 3.1 mmol/L (3.5-5.1); Sodium 138 mmol/L (136-145); Total Bilirubin 0.5 mg/dL (0.15-1.2)
[2023-09-06] MEDS: dextrose 5% 250 ML 75 ML IV (09:36)
[2023-09-06] MEDS: acetaminophen 325 mg Tablet 650 MG PO (09:37)
[2023-09-06] MEDS: diphenhydrAMINE 50 mg/mL SDV 1mL 25 MG IVP (09:38)
[2023-09-06 11:56] VITALS: BP 123/65; PULSE 73; RESP 18; TEMP 36.9; O2SAT 93
== END 2023-09-06 23:59 | disposition home or self-care (01) ==
PROVIDERS: Nurse Practitioner Family; PCP Internal Medicine; Visit Provider Internal Medicine Medical Oncology
DX: C56.9 Malignant neoplasm of unspecified ovary (principal); Z51.11 Encounter for antineoplastic chemotherapy
CPT/HCPCS: 80053; 85025; 86304; 96367; 96375; 96413; C9146; J1100; J1200; J1642; J7060

== ENCOUNTER 2023-09-11 15:06 | Outpatient (CLI) | payer MEDICAID, SELFPAY ==
--- NOTE | 2023-09-11 15:15 | XRR_ITS ---
PROCEDURE INFORMATION: Exam: XR Left Hip Exam date and time: 09/11/2023 3:20 PM Age: 58 years old Clinical indication: Hip pain; Left hip; Additional info: L hip pain TECHNIQUE: Imaging protocol: Radiologic exam of the left hip. Views: 2 or 3 views hip with pelvis when performed. COMPARISON: CT chest abdpel w/*[id number] 06/14/2023 9:43 AM FINDINGS: Bones/joints: Unremarkable. No acute fracture. No significant degenerative changes. No lytic or sclerotic bone lesion. Soft tissues: Unremarkable. Other findings: Prior pelvic surgery. XR/XR hip LT 2-3V wo/w pel* [id number] IMPRESSION: No acute findings.
== END 2023-09-11 15:07 | disposition home or self-care (01) ==
LOC: RAD 15:08
PROVIDERS: PCP Internal Medicine; Visit Provider Internal Medicine Medical Oncology
DX: M25.552 Pain in left hip (principal)
CPT/HCPCS: 73502

== ENCOUNTER 2023-09-21 07:09 | Outpatient (CLI) | payer MEDICAID, SELFPAY ==
[2023-09-21] MEDS: iohexol 350 mg/mL 500 mL Btl (per mL) PO (07:18)
--- NOTE | 2023-09-21 08:00 | CT_ITS ---
WS: [id number] CT scan of the chest With IV contrast, CT scan of the abdomen and pelvis with IV contrast and with oral contrast. Additional two-dimensional coronal and sagittal reconstruction was performed. 09/21/20 Clinical Data: restaging cancer and left hip pain eval Comparison: CT chest abdomen pelvis, 06/14/2023 DLP: 873.[address] scans at [facility] use at least one of these dose optimization techniques: automated e xposure control; mA and/or kV adjustment per patient size (includes targeted exams where dose is matc hed to clinical indication); or iterative reconstruction. Findings: Chest: No nodules or masses are seen. There is a small left pleural effusion. The left diaphragm is slightly elevated. There is a scar or atelectasis in the anterior aspect of the left upper lobe unchanged. The heart size is normal with no pericardial effusion. The pulmonary arterial system and thoracic aorta demonstrate no abnormalities or dilatations. The tra peg bifurcates normally into the bronchi. There is no axillary or significant mediastinal adenopathy. Abdomen/pelvis: The liver, spleen, adrenal glands and pancreas are normal. There are clips in the gallbladder fossa f rom a cholecystectomy. There are left upper quadrant nodules unchanged which may represent peritoneal implants. There are nodules inferior to the liver which may represent peritoneal implants. The kidneys show equal bilateral contrast excretion with no cyst or masses. The left kidney is elevat ed because of a left lower quadrant soft tissue mass. The left kidney shows perinephric stranding but no hydronephrosis. The left lower quadrant mass measures 8.9 x 9.5 x 14.4 cm which has grown since t he last CT chest abdomen and pelvis. This mass shows mixed density of low and high measurement. It is well bordered. It is adjacent to the left psoas muscle. There is a small amount of fluid throughout the abdomen. The abdominal aorta is normal in size. No appendicitis or diverticulitis is seen. Oral contrast is in the stomach and small bowel and there is no bowel dilatation. There is a left lower quadrant colostomy unchanged. The bladder is unremarkable. No inguinal hernia is seen. The uterus is absent. The bones of the lower thorax, lumbar spine, pelvis, and hips show minimal osteoarthritis and degener ative disc narrowing of the lower lumbar spine. Impression: 1. Small left pleural effusion. 2. Large left lower quadrant soft tissue mass with greatest dimension of 14.4 cm which has grown sign ificantly. 3. Small abdominal ascites. 4. Probable peritoneal implants in left upper quadrant adjacent to undersurface of diaphragm. 5. Possible peritoneal implants inferior to right lobe of the liver.
[2023-09-21] MEDS: iohexol 350 mg/mL 500 mL Btl (per mL) IV (08:33)
== END 2023-09-21 07:10 | disposition home or self-care (01) ==
LOC: RAD 07:10
PROVIDERS: PCP Internal Medicine; Visit Provider Internal Medicine Medical Oncology
DX: C78.6 Secondary malignant neoplasm of retroperitoneum and peritoneum (principal); M25.552 Pain in left hip; R18.8 Other ascites; J90 Pleural effusion, not elsewhere classified
CPT/HCPCS: 71260; 74177; J1642; Q9967

== ENCOUNTER 2023-09-27 10:58 | Outpatient (CLI) | payer MEDICAID, SELFPAY ==
[2023-09-27] VITALS (7 sets, daily range): BP systolic 115–131; BP diastolic 61–80; PULSE 81–96; RESP 16–18; TEMP 36.6–36.8; O2SAT 95–98; BMI 29.2
[2023-09-27] MEDS: sodium chloride 0.9% 1,000 ML 30 ML IV (11:45)
[2023-09-27 11:59] LABS: INR 0.97 (0.8-1.2)
[2023-09-27] MEDS: fentaNYL 50 mcg/mL INJ 2mL 25 MCG IVP (12:38)
--- NOTE | 2023-09-27 13:15 | US_ITS ---
WS: [id number] ULTRASOUND GUIDED BIOPSY LEFT RETROPERITONEAL MASS. HISTORY: left pelvic mass, history of ovarian cancer. Procedure, risks, and complications are explained to the patient. Consent was obtained. Skin is clean sed with ChloraPrep and anesthetized with 1% buffered lidocaine. Prior imaging studies are reviewed. Large mass is identified along the posterior LEFT pelvis and retroperitoneum. Mass is targeted with a n 18-gauge achieve needle. Multiple core biopsies are performed and placed in formalin. Patient rohini ated the procedure well. Patient will be discharged within 1 hour. IMPRESSION: Uncomplicated multiple core needle biopsies of the large neoplastic mass along the LEFT retroperitone um.
== END 2023-09-27 13:25 | disposition home or self-care (01) ==
PROVIDERS: Radiology Diagnostic Radiology; Family Provider Obstetrics & Gynecology Gynecologic Oncology; PCP Internal Medicine; Visit Provider Internal Medicine Medical Oncology
DX: C56.9 Malignant neoplasm of unspecified ovary (principal); C78.6 Secondary malignant neoplasm of retroperitoneum and peritoneum
CPT/HCPCS: 76942; 85610; 88305; 88342; 88374; 99152; J3010; J7030

== ENCOUNTER 2023-10-09 14:42 | Inpatient (IN) | payer MEDICAID, SELFPAY ==
[2023-10-09 15:06] VITALS: BP 112/64; PULSE 93; RESP 18; TEMP 37.1; O2SAT 96; BMI 27.4
--- NOTE | 2023-10-09 15:22 | CTR_ITS ---
PROCEDURE INFORMATION: Exam: CT Abdomen And Pelvis With Contrast Exam date and time: 10/09/2023 3:52 PM Age: 58 years old Clinical indication: Constipation; Prior surgery; Surgery date: 6+ months; Surgery type: Ostomy 3 yrs ago, hysterectomy; Patient HX: No bm x 1 wk; Additional info: CA history, ostomy, bloated, no bowel movement, abdominal pa TECHNIQUE: Imaging protocol: Computed tomography of the abdomen and pelvis with contrast. Sagittal and coronal reformatted images were created and reviewed. Radiation optimization: All CT scans at this facility use at least one of these dose optimization techniques: automated exposure control; mA and/or kV adjustment per patient size (includes targeted exams where dose is matched to clinical indication); or iterative reconstruction. Contrast material: OMNI 350; Contrast volume: 100 ml; Contrast route: INTRAVENOUS (IV); REPORTING DATA: Count of CT and Cardiac NM exams in prior 12 months: This patient has received 3 known CTs and 0 known cardiac nuclear medicine studies in the 12 months prior to the current study. COMPARISON: CT chest abdpel w/*[id number] 09/21/2023 8:29 AM RADIATION DOSE METRICS: Total DLP (mGy-cm): 598.93 FINDINGS: Lungs: Stable left lower lobe compressive atelectasis. Pleural spaces: Stable small left pleural effusion. Heart: Stable mild enlargement of the visualized portions of the heart. Liver: The liver is unremarkable. Gallbladder and bile ducts: Stable findings consistent with a previous cholecystectomy. Stable dilatation of the biliary ducts, not unexpected in a patient who has had a prior cholecystectomy. Pancreas: Stable marked atrophy of the pancreatic parenchyma. No pancreatic ductal dilatation. Spleen: The spleen is unremarkable. Adrenal glands: The right and left adrenal glands are unremarkable. Kidneys and ureters: Stable subcentimeter hypodense foci in the right kidney that are too small to characterize, however likely represent small cysts. The right and left ureters are unremarkable. See under retroperitoneal space for findings regarding the left kidney. Stomach and bowel: Stable sigmoidectomy and left lower quadrant colostomy. Increased fecal content in the colon. No evidence for obstruction. Interval development of wall thickening with surrounding inflammation involving the descending duodenum with a small ulcer at the medial wall of the descending duodenum (series 3, images 28-34). Ingested contents in the stomach. No acute abnormality in the small bowel. Appendix: Appendix not definitely visualized. No inflammatory changes in the pericecal region however. Intraperitoneal space: No free intraperitoneal air. No loculated fluid collections to suggest an abscess. Redemonstration of multiple peritoneal implants in the left subdiaphragmatic space, along the inferior surface of the liver, along the right paracolic gutter, and in the mesentery are redemonstrated. The largest in the lower mesentery in the midline now measures 2.6 x 5.4 cm, previously measured 2.4 x 4.9 cm (series 3, image 56). Other peritoneal implants are stable. Retroperitoneal space: Increase in size of a large necrotic mass in the left retroperitoneum. The mass is invading the left iliacus muscle and displacing and possibly invading the left psoas muscle. The mass now measures 17.0 x 11.0 x 11.5 cm, previously measured 14.0 x 9.1 x 9.8 cm (series 6, image 20 and series 3, image 44). There is now necrosis at the superior wall of the mass with superior displacement of fluid out of the mass and development of a loculated fluid collection in the left retroperitoneum between the mass and left kidney with increasing displacement and mass effect on the left kidney. No hydronephrosis. The fluid collection measures 5.0 x 10.1 x 7.5 cm (series 5, image 21). It is uncertain whether this represents sterile fluid or findings could represent infected fluid or an abscess. Vasculature: Moderate atherosclerotic changes in the visualized arteries. No evidence for aortic aneurysm or aortic dissection. Hepatic veins, portal veins, splenic vein, and SMV are patent. Lymph nodes: No lymphadenopathy. Urinary bladder: Unremarkable as visualized. Reproductive: Stable changes consistent with a previous hysterectomy. The ovaries are not definitely visualized, not an expected in a postmenopausal female. This may be due to ovarian atrophy. Alternatively, the patient may have had a previous bilateral oophorectomy. Findings are stable. Bones/joints: Degenerative changes in the spine, sacroiliac joints, and hips. Soft tissues: No acute abnormality in the extra-abdominal soft tissues. CT/CT abdomen pelvis w con* [id number] IMPRESSION: 1. Increase in size of a large necrotic mass in the left retroperitoneum. The mass is invading the left iliacus muscle and displacing and possibly invading the left psoas muscle. There is now necrosis at the superior wall of the mass with superior displacement of fluid out of the mass and development of a loculated fluid collection in the left retroperitoneum between the mass and left kidney with increasing displacement and mass effect on the left kidney. No hydronephrosis. It is uncertain whether this represents sterile fluid or findings could represent infected fluid or an abscess. 2. Interval development of an inflamed duodenal ulcer in the 2nd portion of the duodenum. 3. Stable sigmoidectomy and left lower quadrant colostomy. Increased fecal content in the colon. No evidence for obstruction. 4. Stable small left pleural effusion with left lower lobe compressive atelectasis. 5. Redemonstration of multiple peritoneal implants in the left subdiaphragmatic space, along the inferior surface of the liver, along the right paracolic gutter, and in the mesentery are redemonstrated. The largest in the lower mesentery in the midline has increased in size. Other peritoneal implants are stable. 6. Incidental/nonacute findings are listed in the report. COMMENTS: Consistent with the [employer]'s Incidental Findings Committee white paper (J Am Nighat Radiol 2018): Any incidental renal lesion less than 1 cm or classified as too small to characterize, or any incidental cystic renal lesion characterized as simple-appearing, is likely benign. No follow-up imaging is recommended for these lesions per consensus recommendations based on imaging criteria.
[2023-10-09 16:21] LABS: Basophils # 0.1 10^3/uL (0.0-0.1); Basophils % 0.7 %; Eosinophils # 0.2 10^3/uL (0.0-0.8); Eosinophils % 2.1 %; Hematocrit 37.7 % (36-47); Lymphocytes % 10.4 %; Mean Corpuscular HGB Conc 32.4 g/dL (30-55); Mean Corpuscular Hemoglobin 28.8 pg (27-33); Mean Corpuscular Volume 89.1 fl (85-98); Mean Platelet Volume 9.8 fL (7.4-10.4); Monocytes # 0.8 10^3/uL (0.2-0.9); Monocytes % 8.4 %; Neutrophils # 7.47 10^3/uL (1.8-7.7); Nucleated Red Blood Cells % 0 %; Platelet Count 310 10^3/cmm (157-399); Red Blood Count 4.23 10^6/uL (3.85-5.65); Red Cell Distribution Width 13.3 % (12.1-15.1); White Blood Count 9.59 10^3/uL (3.29-11.43)
--- NOTE | 2023-10-09 16:38 | W.ED.WEAKNES ---
HPI - Weakness General: Chief complaint: Weakness Stated complaint: sent from [facility] Time Seen by Provider: 10/09/23 15:35 History of Present Illness: Patient is a 58-year-old female that presents to the emergency department with abdominal bloating, inability to pass stool through her ostomy. Patient has not had any stools for 7 days. Patient has diagnosed metastatic ovarian cancer. She is patient of Dr. Amor. He is aware of the patient's ER visit. Associated symptoms: Reports nausea; Denies chest pain, chills, confusion, dysuria, easy bruising, fever(s), headache(s) or vomiting Review of Systems Const: Reports: change in appetite, fatigue and malaise; Denies: fever(s), chills or change in weight Eyes: Denies: change in vision, eye discomfort, eye discharge or eye redness ENMT: Denies: throat pain, enlarged tonsils, odynophagia, hoarseness, ear or mastoid pain, ear discharge, change in hearing, tinnitus, nasal discharge, nasal congestion, post nasal drip or sinus pain Card: Denies: chest pain, palpitations, irregular heart rhythm, edema, dyspnea on exertion, orthopnea or leg pain with exertion Resp: Denies: dyspnea, productive cough, non-productive cough, wheezing, stridor or chest congestion GI: Reports: abdominal pain, nausea, constipation (No stool in 7 days-colostomy) and change in bowel habits; Denies: vomiting, dysphagia, diarrhea, bloating, GI cramping or hematochezia : Denies: flank pain, difficulty voiding, dysuria, urinary frequency, urinary urgency, urinary hesitancy, oliguria or hematuria Musc: Denies: neck pain, back pain, extremity pain, joint pain, joint swelling, joint redness, joint warmth or muscle weakness Skin/Breast: Denies: rash, pruritus, erythema, photosensitivity or new lesions Neuro: Denies: headache(s), numbness in extremities, weakness in extremities, sensory changes, lack of coordination, difficulty walking, frequent falls, dizziness, confusion, Slurred speech present, difficulty communicating thoughts, seizure-like activity or involuntary movements Endo: Denies: polyuria, polydipsia or tired all the time Mike/Lymph: Denies: easy bruising or easy bleeding PFSH ED PFSH: Medical History Ovarian cancer HTN (hypertension) Depression Anxiety Surgical History History of exploratory laparotomy (03/22/22) Low anterior resection with placement of end colostomy History of exploratory laparotomy (03/22/22) total abdominal hysterectomy/BSO, omentectomy, and maximal debulking of peritoneal carcinomatosis History of exploratory laparotomy (03/24/22) Exploratory laparotomy with left colon resection and revision of colostomy Port-A-Cath in place (12/20/21) left subclavian History of tubal ligation History of colonoscopy History of cholecystectomy Family History Mother Colon cancer Cancer Dementia Other Hypertension Denies family history of Diabetes CAD (coronary artery disease) Clotting disorder Hyperlipidemia Psychiatric illness Chronic kidney disease (CKD) Suicide Anesthesia complication Bleeding disorder Lung disease Stroke Social History Smoking and tobacco/nicotine status: never used tobacco/nicotine Alcohol intake: never Substance/Drug Use: never Physical Exam Const: COMMON NORMALS: no acute distress, patient oriented x3 and alert GENERAL APPEARANCE: cooperative ORIENTATION/CONSCIOUSNESS: Yes awake, Yes oriented to person, Yes oriented to place and Yes oriented to time HENMT: COMMON NORMALS: normocephalic and atraumatic HEAD & SCALP: normocephalic and atraumatic FACE & SINUS: normal facial exam MOUTH: Normal oral and palatal mucosa present THROAT: posterior oropharynx normal Eye: COMMON NORMALS: Equal, round and reactive pupils present, EOMs intact bilaterally, conjunctivae normal and no scleral icterus GENERAL EYE: appearance normal, both eyes and all related structures ALIGNMENT: Yes alignment normal PERIORBITAL: periorbital findings normal CONJUNCTIVA: Yes conjunctivae normal and Yes conjunctival abnormal positive bilateral conjunctival icterus PUPIL: Yes Equal, round and reactive pupils present Neck/C-Spine: COMMON NORMALS: full ROM GENERAL: Yes normal visual inspection Chest: COMMONS NORMALS: normal inspection of the chest Breast/axilla inspection: Yes no chest deformity, asymmetry, normal contours, no nodules, masses, tenderness Resp: COMMON NORMALS: normal respiratory effort, No retractions, No use of accessory muscles and clear to auscultation bilaterally EFFORT & INSPECTION: Yes able to speak in complete sentences and Yes symmetric chest movement AUSCULTATION: clear to auscultation bilaterally Cardio: COMMON NORMALS: regular rate, regular rhythm and Peripheral pulses 2+ throughout RATE: regular rate RHYTHM: regular rhythm PERIPHERAL PULSES: Peripheral pulses 2+ throughout GI: COMMON NORMALS: non-tender INSPECTION: Yes normal to inspection, Yes scar and Yes GI ostomy present AUSCULTATION: Yes Hypoactive bowel sounds present Extremity: COMMON NORMALS: normal to inspection GENERAL: Yes normal exam except as noted Neuro: COMMON NORMALS: patient oriented x3 SENSORIUM/ORIENTATION: Yes alert, Yes oriented to person, Yes oriented to place and Yes oriented to time CRANIAL NERVES: Yes CN normal except as noted Psych: COMMON NORMALS: mental status grossly normal, Normal thought process present, cooperative, activity/motor behavior normal, denies homicidal ideation and denies suicidal ideation THOUGHT PROCESS: Normal thought process present Skin: COMMON NORMALS: no rashes or lesions noted, no wounds and turgor normal GENERAL SKIN EXAM: no rashes or lesions noted and turgor normal Course Vital Signs: Vital signs: Vital Signs Temperature 98.8 F 10/09/23 15:06 Pulse Rate 93 10/09/23 15:06 Respiratory Rate 15 10/09/23 16:45 Blood Pressure 112/64 10/09/23 15:06 Pulse Oximetry 93 10/09/23 16:45 Oxygen Delivery Me thod Room Air 10/09/23 15:06 MDM - Weakness Medical Decision Making Patient was evaluated in the emergency department today for some degree of abdominal discomfort, constipation, and left lower extremity pain. Patient has known metastatic ovarian cancer is currently treated by Dr. Amor and Dr. [facility]. Obtained laboratory studies that included CBC CMP. I started IV fluids and got a CT abdomen pelvis with contrast. CT abdomen pelvis complete and has multiple new findings. She does have increased fecal content in the colon but no evidence of obstruction. I reviewed this with Dr. Amor who advises treatment for constipation. relistor subcu and she is going to receive an enema via Anaya catheter. Her CBC was unremarkable but her chemistry panel reveals hypercalcemia of 17, hyperkalemia 3.0, and acute renal failure with a creatinine of 3.0. Fluids have been started. I have spoken with Dr. Quintana about admission and will update Dr. Amor. GEN nomi has been consulted to evaluate the colostomy. Patient to be admitted for tumor lysis syndrome, hypokalemia, hypercalcemia, constipation/obstipation. Patient has been evaluated by Dr. Marie. Believes that the obstipation is due to chronic opiate use Lab Data 10/09/23 16:14 10/09/23 16:14 Radiology Impressions Abdomen/Pelvis CT 10/09/23 15:22 IMPRESSION: 1. Increase in size of a large necrotic mass in the left retroperitoneum. The mass is invading the left iliacus muscle and displacing and possibly invading the left psoas muscle. There is now necrosis at the superior wall of the mass with superior displacement of fluid out of the mass and development of a loculated fluid collection in the left retroperitoneum between the mass and left kidney with increasing displacement and mass effect on the left kidney. No hydronephrosis. It is uncertain whether this represents sterile fluid or findings could represent infected fluid or an abscess. 2. Interval development of an inflamed duodenal ulcer in the 2nd portion of the duodenum. 3. Stable sigmoidectomy and left lower quadrant colostomy. Increased fecal content in the colon. No evidence for obstruction. 4. Stable small left pleural effusion with left lower lobe compressive atelectasis. 5. Redemonstration of multiple peritoneal implants in the left subdiaphragmatic space, along the inferior surface of the liver, along the right paracolic gutter, and in the mesentery are redemonstrated. The largest in the lower mesentery in the midline has increased in size. Other peritoneal implants are stable. 6. Incidental/nonacute findings are listed in the report. COMMENTS: Consistent with the [employer]'s Incidental Findings Committee white paper (J Am Nighat Radiol 2018): Any incidental renal lesion less than 1 cm or classified as too small to characterize, or any incidental cystic renal lesion characterized as simple-appearing, is likely benign. No follow-up imaging is recommended for these lesions per consensus recommendations based on imaging criteria. ADDENDUM: 10/09/23 0895 THIS REPORT CONTAINS FINDINGS THAT MAY BE CRITICAL TO PATIENT CARE. The findings were verbally communicated via telephone conference with Dr. Bolanos at 5:20 PM UI [employer]X ENGINEER on 10/09/2023. The findings were acknowledged and understood. Laboratory Results WBC 9.59 10^3/uL (3.29-11.43) 10/09/23 16:14 Corrected WBC Cancelled 10/09/23 15:47 RBC 4.23 10^6/uL (3.85-5.65) 10/09/23 16:14 Hgb 12.20 g/dL (11.27-16.99) 10/09/23 16:14 Hct 37.7 % (36-47) 10/09/23 16:14 MCV 89.1 fl (85-98) 10/09/23 16:14 MCH 28.8 pg (27-33) 10/09/23 16:14 MCHC 32.4 g/dL (30-55) 10/09/23 16:14 RDW 13.3 % (12.1-15.1) 10/09/23 16:14 Plt Count 310 10^3/cmm (157-399) 10/09/23 16:14 MPV 9.8 fL (7.4-10.4) 10/09/23 16:14 Gran % Cancelled 10/09/23 15:47 Neut % (Auto) 78.0 % 10/09/23 16:14 Lymph % (Auto) 10.4 % 10/09/23 16:14 [place] % (Auto) 8.4 % 10/09/23 16:14 Eos % (Auto) 2.1 % 10/09/23 16:14 Baso % (Auto) 0.7 % 10/09/23 16:14 Neut # (Auto) 7.47 10^3/uL (1.8-7.7) 10/09/23 16:14 Lymph # (Auto) 1.0 10^3/uL (0.8-4.8) 10/09/23 16:14 [place] # (Auto) 0.8 10^3/uL (0.2-0.9) 10/09/23 16:14 Eos # (Auto) 0.2 10^3/uL (0.0-0.8) 10/09/23 16:14 Baso # (Auto) 0.1 10^3/uL (0.0-0.1) 10/09/23 16:14 Absolute Gran (auto) Cancelled 10/09/23 15:47 Nucleated RBC % (auto) 0 % 10/09/23 16:14 Nucleated RBCs # 0.0 /100WBC 10/09/23 16:14 Sodium 136 mmol/L (136-145) 10/09/23 16:14 Potassium 3.0 mmol/L (3.5-5.1) L 10/09/23 16:14 Chloride 94 mmol/L (98-107) L 10/09/23 16:14 Carbon Dioxide 30 mmol/L (22-29) H 10/09/23 16:14 Anion Gap 15.0 (5-19) 10/09/23 16:14 BUN 44 mg/dL (6-20) H 10/09/23 16:14 Creatinine 3.0 mg/dL (0.5-0.9) H 10/09/23 16:14 GFR Calculation 16.0 mL/min (90-130) L 10/09/23 16:14 Glucose 110 mg/dL (65-115) 10/09/23 16:14 Calculated Osmolality 294 mOsm/kg (285-295) 10/09/23 16:14 Calcium 17.1 mg/dL (8.5-10.5) H* 10/09/23 16:14 Total Bilirubin 0.5 mg/dL (0.15-1.2) 10/09/23 16:14 AST 80 U/L (0-32) H 10/09/23 16:14 ALT 22 U/L (0-33) 10/09/23 16:14 Alkaline Phosphatase 92 U/L (35-105) 10/09/23 16:14 Total Protein 7.8 g/dL (6.6-8.7) 10/09/23 16:14 Albumin 4.3 g/dL (3.5-5.2) 10/09/23 16:14 Globulin 3.5 g/dL (1.3-4.6) 10/09/23 16:14 All radiology interpretation(s) finalized by discharge Discharge Plan Discharge Patient Disposition: Admitted As Inpatient Clinical Impression: Ovarian cancer, Metastatic malignant neoplasm, Tumor lysis syndrome, Hypercalcemia, Acute hypokalemia, Acute renal failure, Obstipation, Secondary malignant neoplasm of retroperitoneum and peritoneum Condition: Stable Coding Level of Care Code ED Funeral Director'S Assistant for Char Hatch
[2023-10-09 16:40] LABS: Alanine Aminotransferase 22 U/L (0-33); Albumin Level 4.3 g/dL (3.5-5.2); Alkaline Phosphatase 92 U/L (35-105); Aspartate Amino Transferase 80 U/L (0-32); Blood Urea Nitrogen 44 mg/dL (6-20); Carbon Dioxide 30 mmol/L (22-29); Chloride 94 mmol/L (98-107); Globulin 3.5 g/dL (1.3-4.6); Glucose 110 mg/dL (65-115); Osmolality Calculated 294 mOsm/kg (285-295); Sodium 136 mmol/L (136-145); Total Bilirubin 0.5 mg/dL (0.15-1.2); Total Protein 7.8 g/dL (6.6-8.7)
[2023-10-09 16:45] VITALS: RESP 15; O2SAT 93
[2023-10-09] MEDS: fentaNYL 50 mcg/mL INJ 2mL IVP (16:45)
[2023-10-09] MEDS: sodium chloride 0.9% 1,000 ML 999 ML IV (16:46)
[2023-10-09] MEDS: ondansetron 2 mg/ML SDV 2 mL 4 MG IVP (16:46)
[2023-10-09 17:08] LABS: Creatinine Clr Calc Pharmacy 18.9856
[2023-10-09 17:09] LABS: Calcium 17.1 mg/dL (8.5-10.5)
[2023-10-09] MEDS: methylnaltrexone 12 /0.6 mL INJ 12 MG SUBCUT (17:41)
--- NOTE | 2023-10-09 18:27 | P.CONIM_ITS ---
Providers/Reason For Consult 2 Consulting Physician/Specialty*: General Surgery Reason for Consult*: Obstipation and presence of colostomy Primary Care Provider: Deepa Farris MD History of Present Illness History of Present Illness Genny Diaz is a 58 year old female with extensive medical history including a metastatic ovarian cancer, left retroperitoneal mass, s/p colostomy in [facility] 3 years ago who presents to the hospital with lack of ostomy output for a week. CT done in ER showed evidence of progression of disease and constipation, no bowel obstruction. laboratory workup showed evidence of multiple electrolite abnormalities including hypercalcemia. Patient denies nausea, vomit or abdominal distension. of note, patient states she has been taking opioid for pain consistentlly. Review of Systems 2 General: Reports: 10 or more systems reviewed and unremarkable except in HPI and below Medications/Allergies Home Medications Medication Instructions Recorded Confirmed Last Taken Type amitriptyline 25 mg tablet 25 mg PO BEDTIME 03/02/21 09/27/23 09/27/23 History fluoxetine 40 mg capsule 40 mg PO DAILY 03/02/21 09/27/23 09/27/23 History ondansetron HCl 4 mg tablet 4 mg PO Q6H PRN nausea and 07/27/22 09/27/23 Unknown Rx vomiting #60 tabs amlodipine 10 mg tablet 5 mg PO DAILY 02/22/23 09/27/23 09/27/23 History loteprednol etabonate 0.5 % eye 1 drp ophthalmic (eye) QID 05/17/23 09/27/23 09/27/23 History drops,suspension (Lotemax) furosemide 40 mg tablet 40 mg PO DAILY PRN lower 07/05/23 09/27/23 Unknown Rx extrmemity edema #30 tabs lisinopril 20 mg tablet 20 mg PO BID #60 tabs 07/05/23 09/27/23 09/27/23 Rx tramadol 50 mg tablet 50 mg PO Q6H PRN pain #120 tabs 08/03/23 09/27/23 Unknown Rx potassium chloride 10 mEq 10 meq PO DAILY PRN on diuretic 09/06/23 09/27/23 Unknown Rx tablet,extended release #30 tabs morphine 15 mg immediate release 15 mg PO Q6H PRN pain 30 days #120 09/22/23 09/27/23 Unknown Rx tablet tabs morphine 30 mg tablet,extended 30 mg PO Q12H 30 days #60 tabs 09/22/23 09/27/23 Unknown Rx release oxycodone 5 mg tablet 5 mg PO Q6H PRN Pain, Severe 09/27/23 09/27/23 09/27/23 History pantoprazole 40 mg tablet,delayed 40 mg PO DAILY #30 tabs 10/03/23 Unknown Rx release Allergies Allergy/AdvReac Type Severity Reaction Status Date / Time No Known Allergies Allergy Verified 09/06/23 08:45 PFSH Acute 2 PFSH: Medical History Ovarian cancer HTN (hypertension) Depression Anxiety Surgical History History of exploratory laparotomy (03/22/22) Low anterior resection with placement of end colostomy History of exploratory laparotomy (03/22/22) total abdominal hysterectomy/BSO, omentectomy, and maximal debulking of peritoneal carcinomatosis History of exploratory laparotomy (03/24/22) Exploratory laparotomy with left colon resection and revision of colostomy Port-A-Cath in place (12/20/21) left subclavian History of tubal ligation History of colonoscopy History of cholecystectomy Family History Mother Colon cancer Cancer Dementia Other Hypertension Denies family history of Diabetes CAD (coronary artery disease) Clotting disorder Hyperlipidemia Psychiatric illness Chronic kidney disease (CKD) Suicide Anesthesia complication Bleeding disorder Lung disease Stroke Social History Smoking and tobacco/nicotine status: never used tobacco/nicotine Alcohol intake: never Substance/Drug Use: never Vitals/I&O/Wt Last Vital Signs Temp 98.8 F 10/09/23 15:06 Pulse 93 10/09/23 15:06 Resp 15 10/09/23 16:45 BP 112/64 10/09/23 15:06 Pulse Ox 93 10/09/23 16:45 O2 Del Method Room Air 10/09/23 15:06 10/09/23 10/09/23 10/09/23 06:59 14:59 22:59 Intake Total 1000 / 1000 Balance 1000 / 1000 Weight last 48 hrs Weight 155 lb Physical Exam 2 GI: OTHER: abdomen is not distended but fills firm, it is not tender. ostomy on the Left hemiabdomen pink and patent, no stool in the bag Data 10/09/23 16:14 10/09/23 16:14 A&P Assessment and plan (1) Abdominal carcinomatosis: (2) Obstipation: Consult Attestations 2 Medical Necessity Statement: After a complete history, physical examination and review of all clinical data the following is my assessment. patient with very complex medical history, presents with obstipation likely related with opioid intake. I irrigated the ostomy at the bedside with 60cc of saline with good return and noted stool output after irrigation. patient will be placed in a strong laxative regimen to allow for bowel movement. in the unlikely event that patient fails to progress and surgical intervention is considered, we would have to discuss with patient and care team in [place] for transfer to higher level of care. - magnesium citrate 1 bottle stat and 1 bottle tomorrow a needed - will irrigate ostomy in the morning as needed - all other managemtn per primary team. Coding Level of Care Code 59968 Diagnoses Abdominal carcinomatosis C76.2 Obstipation K59.00
--- NOTE | 2023-10-09 18:50 | PC.NURSE ---
magnesium citrate medication delayed d/t not being verified
--- NOTE | 2023-10-09 19:21 | PC.NURSE ---
medication delay: unable to administer magnesium citrate d/t not being loaded into Pyxis
--- NOTE | 2023-10-09 19:42 | P.HP_ITS ---
Providers/Chief Complaint 2 Primary Care Provider: Deepa Farris MD Chief Complaint: sent from [facility] History of Present Illness Genny Diaz is a 58 year old female Review of Systems 2 Const: Reports: fatigue; Denies: fever(s), chills, body aches or malaise ENMT: Denies: throat pain Card: Denies: chest pain, edema, pre-syncope or dyspnea on exertion Resp: Denies: dyspnea, productive cough, change in phlegm color or hemoptysis GI: Reports: constipation; Denies: abdominal pain, nausea, vomiting, diarrhea, hematochezia or melena : Denies: flank pain, urinary frequency or hematuria Musc: Denies: back pain, joint swelling or joint redness Skin/Breast: Denies: rash or new lesions Neuro: Denies: confusion or seizure-like activity Medications/Allergies Home Medications Medication Instructions Recorded Confirmed Last Taken Type amitriptyline 25 mg tablet 25 mg PO BEDTIME 03/02/21 09/27/23 09/27/23 History fluoxetine 40 mg capsule 40 mg PO DAILY 03/02/21 09/27/23 09/27/23 History ondansetron HCl 4 mg tablet 4 mg PO Q6H PRN nausea and 07/27/22 09/27/23 Unknown Rx vomiting #60 tabs amlodipine 10 mg tablet 5 mg PO DAILY 02/22/23 09/27/23 09/27/23 History loteprednol etabonate 0.5 % eye 1 drp ophthalmic (eye) QID 05/17/23 09/27/23 09/27/23 History drops,suspension (Lotemax) furosemide 40 mg tablet 40 mg PO DAILY PRN lower 07/05/23 09/27/23 Unknown Rx extrmemity edema #30 tabs lisinopril 20 mg tablet 20 mg PO BID #60 tabs 07/05/23 09/27/23 09/27/23 Rx tramadol 50 mg tablet 50 mg PO Q6H PRN pain #120 tabs 08/03/23 09/27/23 Unknown Rx potassium chloride 10 mEq 10 meq PO DAILY PRN on diuretic 09/06/23 09/27/23 Unknown Rx tablet,extended release #30 tabs morphine 15 mg immediate release 15 mg PO Q6H PRN pain 30 days #120 09/22/23 09/27/23 Unknown Rx tablet tabs morphine 30 mg tablet,extended 30 mg PO Q12H 30 days #60 tabs 09/22/23 09/27/23 Unknown Rx release oxycodone 5 mg tablet 5 mg PO Q6H PRN Pain, Severe 09/27/23 09/27/23 09/27/23 History pantoprazole 40 mg tablet,delayed 40 mg PO DAILY #30 tabs 10/03/23 Unknown Rx release Allergies Allergy/AdvReac Type Severity Reaction Status Date / Time No Known Allergies Allergy Verified 09/06/23 08:45 PFSH Acute 2 PFSH: Medical History Ovarian cancer HTN (hypertension) Depression Anxiety Surgical History History of exploratory laparotomy (03/22/22) Low anterior resection with placement of end colostomy History of exploratory laparotomy (03/22/22) total abdominal hysterectomy/BSO, omentectomy, and maximal debulking of peritoneal carcinomatosis History of exploratory laparotomy (03/24/22) Exploratory laparotomy with left colon resection and revision of colostomy Port-A-Cath in place (12/20/21) left subclavian History of tubal ligation History of colonoscopy History of cholecystectomy Family History Mother Colon cancer Cancer Dementia Other Hypertension Denies family history of Diabetes CAD (coronary artery disease) Clotting disorder Hyperlipidemia Psychiatric illness Chronic kidney disease (CKD) Suicide Anesthesia complication Bleeding disorder Lung disease Stroke Social History Smoking and tobacco/nicotine status: never used tobacco/nicotine Alcohol intake: never Substance/Drug Use: never Vitals/I&O/Wt Last Vital Signs Temp 98.8 F 10/09/23 15:06 Pulse 93 10/09/23 15:06 Resp 15 10/09/23 16:45 BP 112/64 10/09/23 15:06 Pulse Ox 93 10/09/23 16:45 O2 Del Method Room Air 10/09/23 15:06 01/11/0110/09/23 10/09/23 06:59 14:59 22:59 Intake Total 1000 / 1000 Balance 1000 / 1000 Weight last 48 hrs Weight 70.307 kg Physical Exam 2 Narrative: Family at bedside Const: COMMON NORMALS: patient oriented x3 and alert GENERAL APPEARANCE: c ooperative ORIENTATION/CONSCIOUSNESS: Yes awake HENMT: COMMON NORMALS: oropharynx normal Neck/C-Spine: COMMON NORMALS: no JVD Resp: COMMON NORMALS: normal respiratory effort and clear to auscultation bilaterally AUSCULTATION: clear to auscultation bilaterally Cardio: COMMON NORMALS: no JVD, regular rhythm, S1 normal heart sound present, S2 normal heart sound present and No murmurs present (Cardio) RHYTHM: regular rhythm HEART SOUNDS: S1 normal heart sound present and S2 normal heart sound present GI: COMMON NORMALS: Normal to inspection, nondistended, normoactive bowel sounds present, Soft to palpation and non-tender PALPATION: Yes Soft to palpation OTHER: Colostomy Extremity: COMMON NORMALS: no joint enlargement and no pedal edema Neuro: COMMON NORMALS: patient oriented x3 and moves all extremities S ENSORIUM/ORIENTATION: Yes alert Skin: COMMON NORMALS: no rashes or lesions noted GENERAL SKIN EXAM: no rashes or lesions noted Data 10/09/23 16:14 10/09/23 16:14 A&P Assessment and plan (1) Hypercalcemia: Severe hypercalcemia with risk of life-threatening complications, calcium 17.1 related to malignancy. Takes vitamin D at home, discussed with her to hold for now. Also takes multivitamin, discussed with her to avoid multivitamin with calcium. Received a bolus of fluid in the ER. Discussed with her family regarding additional treatment, IV hydration, continue NS 200 mill per hour, discussed with her risk of fluid overload, symptoms, she will let us know in case of developing concerning symptoms. Reassess volume status. Not starting diuretics at this time as discussed, but will give if needed. Calcitonin. Denosumab. Discussed risks, osteonecrosis of the jaw. Reassess calcium. May need dialysis if not improving. Reviewed vitals, CBC, CMP, CT abdomen pelvis. Discussed with ER provider. ER note reviewed. (2) Obstipation: No bowel movement for a week now, no signs of obstruction on CT. Multifactorial secondary to severe hypercalcemia and also opioids. Dehydrated. Appreciate surgical consultation. Discussed with surgery. Treat hypercalcemia as above. IV hydration for dehydration. Received Relistor in ER. (3) High risk medication use: Opioids, contributing to obstipation. Received Relistor in ER. (4) Acute hypokalemia: Replacement requested. Recheck potassium. Check magnesium. (5) Acute kidney injury: Discussed with her and family also regarding LASHAUN, creatinine noted 3. Secondary to severe hypercalcemia, dehydration. She states she may occasionally use ibuprofen, discussed with her to avoid NSAIDs. Treat hypercalcemia as above. Reviewed CT abdomen pelvis. Noted hypodense foci in the kidney, unremarkable ureters. (6) Metastatic malignant neoplasm: Follows with oncology here Dr. Amor as well as in [place]. Preparation underway for radiation therapy. (7) Duodenal ulcer: Incidentally noted on review of CT abdomen pelvis. PPI. Plan HTN: Monitor blood pressures. Depression, anxiety Other medical problems Requested to confirm home medications. Attestations 2 Medical Necessity Statement*: Admission of over 2 midnights is going to be needed for assessment management of severe hypercalcemia related to malignancy, obstipation. Diagnoses Hypercalcemia E83.52 Obstipation K59.00 High risk medication use Z79.899 Acute hypokalemia E87.6 Acute kidney injury N17.9 Metastatic malignant neoplasm C79.9 Duodenal ulcer K26.9
[2023-10-09] MEDS: magnesium citrate Btl 296 mL PO (20:10)
--- NOTE | 2023-10-09 20:10 | PC.NURSE ---
medication delay: Xgeva, Xylocaine K-Bao, Miacalcin, NS maintenance fluids delayed d/t not being verified by pharmacy.
[2023-10-09 20:16] VITALS: BP 148/71; PULSE 85; O2SAT 96
--- NOTE | 2023-10-09 20:18 | PC.NURSE ---
Dr. Marie administered soap suds enema through stoma.
[2023-10-09 20:19] VITALS: BP 148/71; PULSE 85; O2SAT 96
--- NOTE | 2023-10-09 20:19 | PC.NURSE ---
report called to [facility] on Med-Surg, no further questions at this time.
[2023-10-09 20:39] VITALS: BP 137/82; PULSE 86; RESP 18; TEMP 36.3; O2SAT 94
[2023-10-09] MEDS: sodium chloride 0.9% 1,000 ML 200 ML IV (21:20)
[2023-10-09] MEDS: lidocaine 1% 5 ML in potassium chloride premix 100 ML 52.5 ML IV (21:22)
[2023-10-09] MEDS: amitriptyline 25 mg Tablet PO (22:46)
[2023-10-09 22:54] VITALS: RESP 16
[2023-10-09] MEDS: HYDROmorphone 1 mg/mL INJ 1 mL 0.2 MG IVP (22:54)
[2023-10-10] VITALS (8 sets, daily range): BP systolic 137–158; BP diastolic 76–90; PULSE 78–85; RESP 15–20; TEMP 36.5–36.7; O2SAT 91–95; BMI 29.7
[2023-10-10] MEDS: sodium chloride 0.9% 1,000 ML 200 ML IV ×5 (02:14→23:30)
[2023-10-10] MEDS: oxyCODONE-APAP 10-325 mg Tablet 1 TAB PO ×2 (02:16→18:21)
[2023-10-10] MEDS: HYDROmorphone 1 mg/mL INJ 1 mL 0.2 MG IVP ×3 (03:48→20:25)
[2023-10-10 07:00] LABS: Basophils # 0.1 10^3/uL (0.0-0.1); Basophils % 0.8 %; Eosinophils # 0.1 10^3/uL (0.0-0.8); Eosinophils % 1.6 %; Hematocrit 33.4 % (36-47); Lymphocytes # 0.8 10^3/uL (0.8-4.8); Lymphocytes % 9.7 %; Mean Corpuscular HGB Conc 31.7 g/dL (30-55); Mean Corpuscular Hemoglobin 28.9 pg (27-33); Mean Platelet Volume 9.8 fL (7.4-10.4); Monocytes # 0.7 10^3/uL (0.2-0.9); Monocytes % 9.3 %; Neutrophils # 6.23 10^3/uL (1.8-7.7); Neutrophils % 78.2 %; Nucleated Red Blood Cells % 0 %; Platelet Count 256 10^3/cmm (157-399); Red Blood Count 3.67 10^6/uL (3.85-5.65); Red Cell Distribution Width 13.5 % (12.1-15.1); White Blood Count 7.96 10^3/uL (3.29-11.43)
[2023-10-10 07:19] LABS: Alanine Aminotransferase 16 U/L (0-33); Albumin Level 3.5 g/dL (3.5-5.2); Alkaline Phosphatase 77 U/L (35-105); Anion Gap 11.6 (5-19); Aspartate Amino Transferase 64 U/L (0-32); Blood Urea Nitrogen 38 mg/dL (6-20); Carbon Dioxide 29 mmol/L (22-29); Chloride 102 mmol/L (98-107); Globulin 2.8 g/dL (1.3-4.6); Glomerular Filtration Rate 19.7 mL/min (90-130); Glucose 80 mg/dL (65-115); Magnesium 1.9 mg/dL (1.7-2.3); Osmolality Calculated 296 mOsm/kg (285-295); Phosphorus 2.9 mg/dL (2.5-4.5); Potassium 3.6 mmol/L (3.5-5.1); Sodium 139 mmol/L (136-145); Total Bilirubin 0.3 mg/dL (0.15-1.2); Total Protein 6.3 g/dL (6.6-8.7)
[2023-10-10 07:45] LABS: Calcium 15.4 mg/dL (8.5-10.5)
--- NOTE | 2023-10-10 07:56 | P.PN_ITS ---
Subjective 2 Subjective: Evaluated patient at bedside this morning, after administration of the mag citrate and irrigation of the ostomy patient states that now stoma is completely full of gas and stool. patient has remained otherwise stable no nausea no vomit no significant abdominal pain Vitals/I&O/Wt Last Vital Signs Temp 98.1 F 10/10/23 07:46 Pulse 79 10/10/23 07:46 Resp 15 10/10/23 07:46 BP 158/90 10/10/23 07:46 Pulse Ox 91 10/10/23 07:46 O2 Del Method Room Air 10/10/23 07:46 10/09/23 10/10/23 10/10/23 22:59 06:59 14:59 Intake Total 1120 / 1120 2235 / 3355 Output Total 500 / 500 Balance 1120 / 1120 1735 / 2855 Weight last 48 hrs Weight 168 lb 1.6 oz Weight 155 lb Weight 155 lb Physical Exam 2 GI: OTHER: Abdomen extrusion, nondistended, nontender, ostomy bag full of gas and stool Data 10/10/23 06:11 10/10/23 06:11 A&P Assessment and plan (1) Obstipation: Plan Patient obstipation has resolved after administration of the magnesium citrate and irrigation of the ostomy. My recommendation will be to continue patient on daily MiraLAX and docusate to prevent further episodes of constipation especially as she is taking good amount of opiates. No additional interventions recommended from the surgical standpoint, general surgery will follow-up as needed. Of note, agree with medical team decision to start patient on PPI due to incidental finding of a duodenal ulcer on imaging. Patient she will follow-up with her cancer care team upon discharge no follow-up with general surgery is required. Attestations 2 Medical Necessity Statement*: Per medical team Coding Level of Care Code Acute Code for Chg Fwd Diagnoses Obstipation K59.00
--- NOTE | 2023-10-10 08:52 | PC.CHAP ---
Pastoral Care Encounter/Spiritual Assessment Type of Contact [] Declined steam press tender visit [] Patient/Family/Request visit [] Outpatient visit [] Follow-up visit [] Physician referral [] Code/Alert [] Routine visit [] Staff referral [] Actively dying [] Patient sleeping [] Family support [] [] Out of room [] Palliative care [] [x] Receiving care in room [] Pre-surgical visit [] Trauma [] Long length of stay [] ICU visit [] Other: Relational/Emotional Strength [] Patient feels connected with others/family/visitors/staff [] Distress [] Loneliness/isolation [] Abandonment Spirituality of Patient [] Person of Fanny [] Attends [employer] of their Fanny [] Believes in Prayer [] Reads Bible or Pentecostalism materials [] There are Spiritual issues to be addressed Timber Packer Interventions [] Prayer [] Active listening [] Non-anxious presence [] Spiritual/emotional support [] Crisis/trauma care [] Spiritual counseling [] Bereavement support [] Provided bereavement packet [] Provided Bible/devotional materials [] Provided toy/stuffed animal, coloring book to patient or family member [] Provided Communion [] Anointing/[place] [] Salvation [] Completed spiritual assessment [] Other: Impact on Illness or Injury [] Angry [] Fearful [] Anxious [] Often cries [] Exhaustion [] Unable to work [] Unable to attend gnosticism [] Unable to walk/stand [] Unable to read [] Unable to drive [] Unable to eat/drink [] Unable to sleep [] Unable to be with family [] Patient intubated [] Other: Summary Time spent with patient
--- NOTE | 2023-10-10 10:09 | PC.PHAR ---
RECEIVED SEVERAL PHONE CALLS REGARDING THIS PATIENT IN THE MIDDLE OF THE NIGHT. SPOKE TO DR. SPENCER THIS MORNING THIS MORNING. OKAY TO STOP XGEVA. ALSO LET HIM KNOW THAT CALCITONIN WAS ORDERED EVEN THOUGH I SUGGESTED ZOMETA TO PHYSICIAN LAST NIGHT. HE STATES HE WILL TAKE A LOOK AT HER SR CR AND MAKE A RECOMMENDATION.
--- NOTE | 2023-10-10 10:24 | PC.PHAR ---
AFTER SPEAKING WITH DR. Santiago, DR. SPENCER WANTS TO GIVE ONE DOSE OF XGEVA FOR HYPERCALCEMIA AND CONTINUE CALCITONIN. I WILL DELIVER AN XGEVA TO THE INPATIENT PHARMACY THIS MORNING.
[2023-10-10] MEDS: calcitonin,salmon 200 unit/mL SDV 2mL 280 UNIT SUBCUT ×2 (10:26→19:37)
[2023-10-10] MEDS: pantoprazole DR 40 mg Tablet PO (10:26)
[2023-10-10] MEDS: denosumab 120 mg SDV SUBCUT (11:15)
--- NOTE | 2023-10-10 13:43 | P.PN_ITS ---
Subjective 2 Subjective: She is feeling slightly better today. Output is resuming from colostomy. No nausea or vomiting. No confusion. Vitals/I&O/Wt Last Vital Signs Temp 98.1 F 10/10/23 07:46 Pulse 79 10/10/23 07:46 Resp 15 10/10/23 07:46 BP 158/90 10/10/23 07:46 Pulse Ox 91 10/10/23 07:46 O2 Del Method Room Air 10/10/23 07:46 10/09/23 10/10/23 10/10/23 22:59 06:59 14:59 Intake Total 1120 / 1120 2235 / 3355 1480 / 1480 Output Total 500 / 500 Balance 1120 / 1120 1735 / 2855 1480 / 1480 Weight last 48 hrs Weight 76.249 kg Weight 70.307 kg Weight 70.307 kg Physical Exam 2 Narrative: Family at bedside Const: COMMON NORMALS: patient oriented x3 and alert GENERAL APPEARANCE: c ooperative ORIENTATION/CONSCIOUSNESS: Yes awake HENMT: COMMON NORMALS: oropharynx normal Neck/C-Spine: COMMON NORMALS: no JVD Resp: COMMON NORMALS: normal respiratory effort and clear to auscultation bilaterally AUSCULTATION: clear to auscultation bilaterally Cardio: COMMON NORMALS: no JVD, regular rhythm, S1 normal heart sound present, S2 normal heart sound present and No murmurs present (Cardio) RHYTHM: regular rhythm HEART SOUNDS: S1 normal heart sound present and S2 normal heart sound present GI: COMMON NORMALS: Normal to inspection, nondistended, normoactive bowel sounds present, Soft to palpation and non-tender PALPATION: Yes Soft to palpation OTHER: Colostomy Extremity: COMMON NORMALS: no joint enlargement and no pedal edema Neuro: COMMON NORMALS: patient oriented x3 and moves all extremities S ENSORIUM/ORIENTATION: Yes alert Skin: COMMON NORMALS: no rashes or lesions noted GENERAL SKIN EXAM: no rashes or lesions noted Data 10/10/23 06:11 10/10/23 06:11 A&P Assessment and plan (1) Hypercalcemia: Overnight it appears neither calcitonin nor denosumab were available. Continued on IV fluids as ordered. Calcium rechecked this morning, 15.4. Spoke with pharmacy, calcitonin is being delivered to the room. Discussed with her oncologist, she is to receive denosumab as per discussion with her last night. Will need follow-up and monitoring of calcium, as discussed also risk of potential hypocalcemia. Continue IV fluids 200 mL/h, at risk of fluid overload. Monitor. Lasix if needed. Follow-up calcium level. If not improving may need hemodialysis. Reviewed vitals, CBC, CMP, reviewed phosphorus level. (2) Obstipation: Producing some stool. Follow-up. Appreciate surgical consultation. Reviewed surgery note. No bowel movement for a week now, no signs of obstruction on CT. Multifactorial secondary to severe hypercalcemia and also opioids. Continue IV fluid for dehydration. Treat hypercalcemia as above. Received Relistor in ER. (3) High risk medication use: Opioids, contributing to obstipation. Received Relistor in ER. (4) Acute hypokalemia: Received potassium. Follow-up potassium level. Reviewed potassium, magnesium. Follow-up magnesium level. Follow-up calcium. (5) Acute kidney injury: Reviewed BUN, creatinine. With improvement, creatinine down to 2.5. Discussed with her and family also regarding LASHAUN, creatinine noted 3. Secondary to severe hypercalcemia, dehydration. She states she may occasionally use ibuprofen, discussed with her to avoid NSAIDs. Treat hypercalcemia as above. Reviewed CT abdomen pelvis. Noted hypodense foci in the kidney, unremarkable ureters. (6) Metastatic malignant neoplasm: Follows with oncology here Dr. Amor as well as in [place]. Preparation underway for radiation therapy. (7) Duodenal ulcer: Incidentally noted on review of CT abdomen pelvis. PPI. Plan HTN: Monitor blood pressures. Depression, anxiety Other medical problems Requested to confirm home medications. Attestations 2 Medical Necessity Statement*: Continue admission for assessment management of severe hypercalcemia, LASHAUN, improving obstipation. Diagnoses Hypercalcemia E83.52 Obstipation K59.00 High risk medication use Z79.899 Acute hypokalemia E87.6 Acute kidney injury N17.9 Metastatic malignant neoplasm C79.9 Duodenal ulcer K26.9
--- NOTE | 2023-10-10 14:47 | PC.NURSE ---
patient had copious amounts of stool out of ostomy. ostomy began leaking. patient showered and ostomy appliance was changed at this time.
[2023-10-10 18:14] LABS: Calcium 13.6 mg/dL (8.5-10.5)
[2023-10-10] MEDS: amitriptyline 25 mg Tablet PO (20:25)
[2023-10-11] VITALS (13 sets, daily range): BP systolic 148–167; BP diastolic 76–107; PULSE 81–91; RESP 14–18; TEMP 36.5–36.9; O2SAT 91–98
[2023-10-11] MEDS: oxyCODONE-APAP 10-325 mg Tablet 1 TAB PO ×3 (00:26→20:23)
[2023-10-11] MEDS: HYDROmorphone 1 mg/mL INJ 1 mL 0.2 MG IVP ×2 (04:42→16:39)
[2023-10-11 06:14] LABS: Basophils # 0.1 10^3/uL (0.0-0.1); Basophils % 0.9 %; Eosinophils # 0.2 10^3/uL (0.0-0.8); Eosinophils % 3.3 %; Lymphocytes # 0.8 10^3/uL (0.8-4.8); Lymphocytes % 11.6 %; Mean Corpuscular HGB Conc 31.9 g/dL (30-55); Mean Corpuscular Hemoglobin 28.9 pg (27-33); Mean Corpuscular Volume 90.4 fl (85-98); Mean Platelet Volume 9.6 fL (7.4-10.4); Monocytes # 0.6 10^3/uL (0.2-0.9); Monocytes % 8.2 %; Neutrophils # 5.34 10^3/uL (1.8-7.7); Neutrophils % 75.7 %; Nucleated Red Blood Cells % 0 %; Platelet Count 242 10^3/cmm (157-399); Red Blood Count 3.43 10^6/uL (3.85-5.65); Red Cell Distribution Width 13.6 % (12.1-15.1); White Blood Count 7.05 10^3/uL (3.29-11.43)
[2023-10-11 06:47] LABS: Alanine Aminotransferase 14 U/L (0-33); Albumin Level 3.4 g/dL (3.5-5.2); Alkaline Phosphatase 71 U/L (35-105); Anion Gap 11.6 (5-19); Aspartate Amino Transferase 61 U/L (0-32); Blood Urea Nitrogen 26 mg/dL (6-20); Calcium 12.8 mg/dL (8.5-10.5); Carbon Dioxide 27 mmol/L (22-29); Chloride 105 mmol/L (98-107); Creatinine Clr Calc Pharmacy 32.0958; Globulin 2.8 g/dL (1.3-4.6); Glomerular Filtration Rate 27.1 mL/min (90-130); Glucose 82 mg/dL (65-115); Magnesium 1.3 mg/dL (1.7-2.3); Osmolality Calculated 294 mOsm/kg (285-295); Potassium 3.6 mmol/L (3.5-5.1); Sodium 140 mmol/L (136-145); Total Bilirubin 0.3 mg/dL (0.15-1.2); Total Protein 6.2 g/dL (6.6-8.7)
[2023-10-11] MEDS: calcitonin,salmon 200 unit/mL SDV 2mL 280 UNIT SUBCUT ×2 (07:00→17:37)
[2023-10-11] MEDS: pantoprazole DR 40 mg Tablet PO (08:04)
--- NOTE | 2023-10-11 10:35 | PC.CHAP ---
Pastoral Care Encounter/Spiritual Assessment Type of Contact [] Declined black top spreader machine operator visit [] Patient/Family/Request visit [] Outpatient visit [] Follow-up visit [] Physician referral [] Code/Alert [x] Routine visit [] Staff referral [] Actively dying [] Patient sleeping [x] Family support [] [] Out of room [] Palliative care [] [] Receiving care in room [] Pre-surgical visit [] Trauma [] Long length of stay [] ICU visit [] Other: Relational/Emotional Strength [x] Patient feels connected with others/family/visitors/staff [] Distress [] Loneliness/isolation [] Abandonment Spirituality of Patient [] Person of Fanny [] Attends Latter-Day of their Fanny [] Believes in Prayer [] Reads Bible or Sabianist materials [] There are Spiritual issues to be addressed Clock Repairer Interventions [x] Prayer [x] Active listening [] Non-anxious presence [] Spiritual/emotional support [] Crisis/trauma care [] Spiritual counseling [] Bereavement support [] Provided bereavement packet [] Provided Bible/devotional materials [] Provided toy/stuffed animal, coloring book to patient or family member [] Provided Communion [] Anointing/[place] [] Salvation [] Completed spiritual assessment [] Other: Impact on Illness or Injury [] Angry [] Fearful [] Anxious [] Often cries [] Exhaustion [] Unable to work [] Unable to attend synagogue [] Unable to walk/stand [] Unable to read [] Unable to drive [] Unable to eat/drink [] Unable to sleep [] Unable to be with family [] Patient intubated [] Other: Summary Time spent with patient 20 min
--- NOTE | 2023-10-11 12:45 | XR_ITS ---
WS: [id number] Portable AP semiupright chest, 10/11/2023 Clinical Data: assess for fluid overload Comparison: None. Findings: No nodules or masses are seen. The heart is normal. The pulmonary vascularity is not increa sed. No pneumonia or pneumothorax is seen. There may be a small left pleural effusion. The left infus ion catheter ends in the mid superior vena cava. No pneumothorax is seen. Impression: 1. Satisfactory position of left infusion catheter. 2. Small left pleural effusion.
[2023-10-11] MEDS: magnesium sulfate premix 2 GM/50 ML PIGGYBACK IV (13:56)
[2023-10-11] MEDS: amlodipine 10 mg Tablet PO (17:37)
[2023-10-11] MEDS: phosphorus 250 mg Tablet PO (17:37)
--- NOTE | 2023-10-11 20:06 | P.PN_ITS ---
Subjective 2 Subjective: She is overall improving. Producing stool from colostomy. Has not had any confusion. Did have little bit of swelling in her feet earlier which had improved. Vitals/I&O/Wt Last Vital Signs Temp 98.3 F 10/11/23 11:49 Pulse 91 10/11/23 16:00 Resp 16 10/11/23 16:39 BP 167/107 10/11/23 16:00 Pulse Ox 94 10/11/23 16:00 O2 Del Method Room Air 10/11/23 16:00 10/11/23 10/11/23 10/11/23 06:59 14:59 22:59 Intake Total 966.667 / 4926.667 240 / 240 50 / 290 Output Total 400 / 1650 Balance 566.667 / 3276.667 240 / 240 50 / 290 Weight last 48 hrs Weight 80.83 kg Weight 76.249 kg Weight 70.307 kg Physical Exam 2 Narrative: Family at bedside Const: COMMON NORMALS: patient oriented x3 and alert GENERAL APPEARANCE: c ooperative ORIENTATION/CONSCIOUSNESS: Yes awake HENMT: COMMON NORMALS: oropharynx normal Neck/C-Spine: COMMON NORMALS: no JVD Resp: COMMON NORMALS: normal respiratory effort and clear to auscultation bilaterally AUSCULTATION: clear to auscultation bilaterally Cardio: COMMON NORMALS: no JVD, regular rhythm, S1 normal heart sound present, S2 normal heart sound present and No murmurs present (Cardio) RHYTHM: regular rhythm HEART SOUNDS: S1 normal heart sound present and S2 normal heart sound present GI: COMMON NORMALS: Normal to inspection, nondistended, normoactive bowel sounds present, Soft to palpation and non-tender PALPATION: Yes Soft to palpation OTHER: Colostomy Extremity: COMMON NORMALS: no joint enlargement and no pedal edema Neuro: COMMON NORMALS: patient oriented x3 and moves all extremities S ENSORIUM/ORIENTATION: Yes alert Skin: COMMON NORMALS: no rashes or lesions noted GENERAL SKIN EXAM: no rashes or lesions noted Data 10/11/23 05:53 10/11/23 05:53 A&P Assessment and plan (1) Hypercalcemia: Severe/critical hypercalcemia on presentation, showing gradual improvement. Calcium reviewed, still hypercalcemic, today down to 12.8. Reviewed phosphorus, magnesium, both low, continue replacement. Give magnesium. Mild crackling in the right lower lobe. Obtain a chest x-ray. Right lung unremarkable. Left lower lobe possible small effusion. Possible atelectasis on the right. Added incentive spirometer. Continue fluids. Risk of fluid overload, monitor. Follow-up calcium level. Reviewed vitals, CBC, CMP. Discussed with case therapist. (2) Obstipation: Resolved. Producing some stool. Follow-up. Appreciate surgical consultation. Reviewed surgery note. No bowel movement for a week now, no signs of obstruction on CT. Multifactorial secondary to severe hypercalcemia and also opioids. Continue IV fluid for dehydration. Treat hypercalcemia as above. Received Relistor in ER. (3) High risk medication use: Opioids, contributing to obstipation. Received Relistor in ER. (4) Acute hypokalemia: Received potassium. Follow-up potassium level. Reviewed potassium, magnesium. Follow-up magnesium level. Follow-up calcium. (5) Acute kidney injury: Reviewed BUN, creatinine. Kidney function continues to improve. BUN down to 26, creatinine down to 1.9. Discussed with her and family also regarding LASHAUN, creatinine noted 3. Secondary to severe hypercalcemia, dehydration. She states she may occasionally use ibuprofen, discussed with her to avoid NSAIDs. Treat hypercalcemia as above. Reviewed CT abdomen pelvis. Noted hypodense foci in the kidney, unremarkable ureters. (6) Metastatic malignant neoplasm: Follows with oncology here Dr. Amor as well as in [place]. Preparation underway for radiation therapy. (7) Duodenal ulcer: Incidentally noted on review of CT abdomen pelvis. PPI. Plan HTN: Monitor blood pressures. Depression, anxiety Other medical problems Requested to confirm home medications. Attestations 2 Medical Necessity Statement*: Continue admission for assessment management of severe symptomatic hypercalcemia, replacement of electrolyte deficiencies. Diagnoses Hypercalcemia E83.52 Obstipation K59.00 High risk medication use Z79.899 Acute hypokalemia E87.6 Acute kidney injury N17.9 Metastatic malignant neoplasm C79.9 Duodenal ulcer K26.9
[2023-10-11] MEDS: amitriptyline 25 mg Tablet PO (20:24)
[2023-10-12] VITALS (10 sets, daily range): BP systolic 141–175; BP diastolic 78–87; PULSE 86–93; RESP 15–18; TEMP 36.6–36.9; O2SAT 93–98
[2023-10-12] MEDS: HYDROmorphone 1 mg/mL INJ 1 mL 0.2 MG IVP ×2 (00:02→21:44)
[2023-10-12 06:25] LABS: Basophils # 0.1 10^3/uL (0.0-0.1); Basophils % 0.7 %; Eosinophils # 0.3 10^3/uL (0.0-0.8); Eosinophils % 3.7 %; Hematocrit 34.3 % (36-47); Lymphocytes # 1.1 10^3/uL (0.8-4.8); Lymphocytes % 12.4 %; Mean Corpuscular HGB Conc 32.4 g/dL (30-55); Mean Corpuscular Volume 89.6 fl (85-98); Mean Platelet Volume 9.6 fL (7.4-10.4); Monocytes # 0.8 10^3/uL (0.2-0.9); Monocytes % 9.3 %; Neutrophils # 6.53 10^3/uL (1.8-7.7); Neutrophils % 73.5 %; Nucleated Red Blood Cells % 0 %; Platelet Count 291 10^3/cmm (157-399); Red Blood Count 3.83 10^6/uL (3.85-5.65); Red Cell Distribution Width 13.5 % (12.1-15.1); White Blood Count 8.89 10^3/uL (3.29-11.43)
[2023-10-12 06:50] LABS: Alanine Aminotransferase 13 U/L (0-33); Albumin Level 3.5 g/dL (3.5-5.2); Alkaline Phosphatase 80 U/L (35-105); Anion Gap 15.3 (5-19); Aspartate Amino Transferase 66 U/L (0-32); Blood Urea Nitrogen 17 mg/dL (6-20); Calcium 12.6 mg/dL (8.5-10.5); Carbon Dioxide 24 mmol/L (22-29); Chloride 100 mmol/L (98-107); Globulin 3.2 g/dL (1.3-4.6); Glomerular Filtration Rate 35.5 mL/min (90-130); Glucose 81 mg/dL (65-115); Magnesium 1.5 mg/dL (1.7-2.3); Osmolality Calculated 283 mOsm/kg (285-295); Phosphorus 1.9 mg/dL (2.5-4.5); Potassium 3.3 mmol/L (3.5-5.1); Sodium 136 mmol/L (136-145); Total Bilirubin 0.4 mg/dL (0.15-1.2); Total Protein 6.7 g/dL (6.6-8.7)
[2023-10-12] MEDS: calcitonin,salmon 200 unit/mL SDV 2mL 280 UNIT SUBCUT ×2 (07:08→18:14)
[2023-10-12] MEDS: oxyCODONE-APAP 10-325 mg Tablet 1 TAB PO ×2 (08:41→18:17)
[2023-10-12] MEDS: phosphorus 250 mg Tablet PO ×2 (08:41→18:14)
[2023-10-12] MEDS: pantoprazole DR 40 mg Tablet PO (08:41)
[2023-10-12] MEDS: amlodipine 10 mg Tablet PO (08:41)
[2023-10-12] MEDS: sodium chloride 0.9% 1,000 ML 200 ML IV ×3 (10:11→20:56)
[2023-10-12] MEDS: magnesium sulfate premix 2 GM/50 ML PIGGYBACK IV (11:57)
[2023-10-12] MEDS: spironolactone 25 mg Tablet PO (12:38)
[2023-10-12 16:57] LABS: Calcium 12.4 mg/dL (8.5-10.5)
--- NOTE | 2023-10-12 20:03 | PM.PN ---
Subjective Subjective: Denies appearance of new symptoms. Colostomy is producing output. Vitals/I&O/Wt Last Vital Signs Temp 98.2 F 10/12/23 15:34 Pulse 87 10/12/23 15:34 Resp 16 10/12/23 18:17 BP 141/81 10/12/23 15:34 Pulse Ox 98 10/12/23 18:17 O2 Del Method Room Air 10/12/23 15:34 10/12/23 10/12/23 10/12/23 06:59 14:59 22:59 Intake Total 0 / 530 410 / 410 1000 / 1410 Output Total 400 / 400 Balance 0 / 530 10 / 10 1000 / 1010 Weight last 48 hrs Weight 56.047 kg Weight 80.83 kg Physical Exam Narrative: Family at bedside Const: COMMON NORMALS: patient oriented x3 and alert GENERAL APPEARANCE: cooperative ORIENTATION/CONSCIOUSNESS: Yes awake HENMT: COMMON NORMALS: oropharynx normal Neck/C-Spine: COMMON NORMALS: no JVD Resp: COMMON NORMALS: normal respiratory effort and clear to auscultation bilaterally AUSCULTATION: clear to auscultation bilaterally Cardio: COMMON NORMALS: no JVD, regular rhythm, S1 normal heart sound present, S2 normal heart sound present and No murmurs present (Cardio) RHYTHM: regular rhythm HEART SOUNDS: S1 normal heart sound present and S2 normal heart sound present GI: COMMON NORMALS: Normal to inspection, nondistended, normoactive bowel sounds present, Soft to palpation and non-tender PALPATION: Yes Soft to palpation OTHER: Colostomy Extremity: COMMON NORMALS: no joint enlargement and no pedal edema Neuro: COMMON NORMALS: patient oriented x3 and moves all extremities SENSORIUM/ORIENTATION: Yes alert Skin: COMMON NORMALS: no rashes or lesions noted GENERAL SKIN EXAM: no rashes or lesions noted Data 10/12/23 05:30 10/12/23 05:30 A&P Assessment and plan (1) Hypercalcemia: Unimproved calcium this morning, 12.6, it appears her IV fluids were stopped yesterday. We considered if her calcium improved today with IV fluids possibly returning home, however, on recheck calcium is still 12.4, despite receiving IVF 200 mL/h. Discussing again, she is having no difficulties breathing, tolerating IV hydration, with still moderate hypercalcemia, will continue at this time, recheck calcium in the morning with consideration of discharge if further improvement. Discussed with oncologist, will follow-up with her in office on Monday. Levels will be rechecked. Continue potassium replacement. Today hypertensive, added to spironolactone. Replace magnesium. Recheck chemistry, magnesium. Risk of fluid overload, monitor for fluid overload. Give diuretics if needed. Mild crackling in the right lower lobe. Reviewed chest x-ray, small effusion in the left lower lobe as previously, right lung unremarkable. Encouraged incentive spirometer use. Reviewed vitals, CBC, CMP. Magnesium. Phosphorus. Discussed with insurance case manager. (2) Obstipation: Resolved. Producing some stool. Follow-up. Appreciate surgical consultation. Reviewed surgery note. No bowel movement for a week now, no signs of obstruction on CT. Multifactorial secondary to severe hypercalcemia and also opioids. Continue IV fluid for dehydration. Treat hypercalcemia as above. Received Relistor in ER. (3) High risk medication use: Opioids, contributing to obstipation. Received Relistor in ER. (4) Acute hypokalemia: Replace potassium. Replace magnesium. Follow-up levels. Received potassium. Follow-up potassium level. Reviewed potassium, magnesium. Follow-up magnesium level. Follow-up calcium. (5) Acute kidney injury: Reviewed BUN, creatinine. Kidney function continues to improve. BUN down to 26, creatinine down to 1.9. Discussed with her and family also regarding LASHAUN, creatinine noted 3. Secondary to severe hypercalcemia, dehydration. She states she may occasionally use ibuprofen, discussed with her to avoid NSAIDs. Treat hypercalcemia as above. Reviewed CT abdomen pelvis. Noted hypodense foci in the kidney, unremarkable ureters. (6) Metastatic malignant neoplasm: Follows with oncology here Dr. Amor as well as in [place]. Preparation underway for radiation therapy. (7) Duodenal ulcer: Incidentally noted on review of CT abdomen pelvis. PPI. Plan HTN: Monitor blood pressures. Depression, anxiety Other medical problems Requested to confirm home medications. Attestations Medical Necessity Statement*: Continue admission for assessment and management of gradually improving severe hypercalcemia, still moderate hypercalcemia. and High MDM includes amount and/or complexity of data reviewed/ordered [ resulted lab(s)/test(s), ordered lab(s)/test(s) and other healthcare professional discussion] and described risk of complication, morbidity or mortality of management as documented Diagnoses Hypercalcemia E83.52 Obstipation K59.00 High risk medication use Z79.899 Acute hypokalemia E87.6 Acute kidney injury N17.9 Metastatic malignant neoplasm C79.9 Duodenal ulcer K26.9
[2023-10-12] MEDS: amitriptyline 25 mg Tablet PO (20:55)
[2023-10-13] MEDS: sodium chloride 0.9% 1,000 ML 200 ML IV ×2 (02:04→08:16)
[2023-10-13 03:36] VITALS: BP 159/84; PULSE 82; RESP 17; TEMP 36.7; O2SAT 94
[2023-10-13 05:47] LABS: Basophils # 0.1 10^3/uL (0.0-0.1); Basophils % 0.7 %; Eosinophils # 0.3 10^3/uL (0.0-0.8); Eosinophils % 3.5 %; Hematocrit 32.6 % (36-47); Lymphocytes # 1.2 10^3/uL (0.8-4.8); Lymphocytes % 14.9 %; Mean Corpuscular HGB Conc 31.6 g/dL (30-55); Mean Corpuscular Hemoglobin 28.9 pg (27-33); Mean Corpuscular Volume 91.3 fl (85-98); Monocytes # 0.8 10^3/uL (0.2-0.9); Monocytes % 9.3 %; Neutrophils # 5.84 10^3/uL (1.8-7.7); Neutrophils % 71.1 %; Nucleated Red Blood Cells % 0 %; Platelet Count 298 10^3/cmm (157-399); Red Blood Count 3.57 10^6/uL (3.85-5.65); Red Cell Distribution Width 13.3 % (12.1-15.1); White Blood Count 8.21 10^3/uL (3.29-11.43)
[2023-10-13 06:08] LABS: Blood Urea Nitrogen 15 mg/dL (6-20); Calcium 11.6 mg/dL (8.5-10.5); Carbon Dioxide 22 mmol/L (22-29); Chloride 105 mmol/L (98-107); Glomerular Filtration Rate 41.9 mL/min (90-130); Glucose 80 mg/dL (65-115); Magnesium 1.4 mg/dL (1.7-2.3); Osmolality Calculated 286 mOsm/kg (285-295); Sodium 138 mmol/L (136-145)
[2023-10-13] MEDS: calcitonin,salmon 200 unit/mL SDV 2mL 280 UNIT SUBCUT (06:12)
[2023-10-13 06:16] LABS: Anion Gap 14.4 (5-19); Potassium 3.4 mmol/L (3.5-5.1)
[2023-10-13 08:00] VITALS: BP 166/75; PULSE 83; RESP 16; TEMP 36.7; O2SAT 94
[2023-10-13] MEDS: phosphorus 250 mg Tablet PO (08:16)
[2023-10-13] MEDS: spironolactone 25 mg Tablet PO (08:16)
[2023-10-13] MEDS: amlodipine 10 mg Tablet PO (08:16)
[2023-10-13] MEDS: pantoprazole DR 40 mg Tablet PO (08:16)
[2023-10-13 08:31] VITALS: RESP 18; O2SAT 95
[2023-10-13] MEDS: HYDROmorphone 1 mg/mL INJ 1 mL 0.2 MG IVP (08:31)
[2023-10-13] MEDS: potassium chloride ER 20 mEq Tablet 40 MEQ PO (10:22)
[2023-10-13] MEDS: magnesium sulfate premix 2 GM/50 ML PIGGYBACK IV (10:23)
[2023-10-13] MEDS: acetaminophen 325 mg Tablet 650 MG PO (10:27)
[2023-10-13 12:00] VITALS: BP 150/88; PULSE 78; RESP 18; TEMP 36.8; O2SAT 96
[2023-10-13] MEDS: magnesium citrate Btl 296 mL PO (13:05)
--- NOTE | 2023-10-13 13:32 | P.PN_ITS ---
Subjective 2 Subjective: Patient evaluated at the bedside, states that her output has been low over the last 24 to 48 hours. Bag was emptied this morning and it had come his inside. Abdominal exam remains benign. Vitals/I&O/Wt Last Vital Signs Temp 98.2 F 10/13/23 12:00 Pulse 78 10/13/23 12:00 Resp 18 10/13/23 12:00 BP 150/88 10/13/23 12:00 Pulse Ox 96 10/13/23 12:00 O2 Del Method Room Air 10/13/23 12:00 10/12/23 10/13/23 10/13/23 22:59 06:59 14:59 Intake Total 1999 1000 / 3410 2290 / 2290 Balance 1999 1000 / 3010 2290 / 2290 Weight last 48 hrs Weight 177 lb 4 oz Weight 123 lb 9 oz Physical Exam 2 GI: OTHER: Abdomen is soft and nontender, there is some firmness on the left hemiabdomen which is consistent with her primary pathology. Ostomy is in place is pink, is productive of gas I see residual stool on the edges of the bag. Data 10/13/23 04:47 10/13/23 04:47 A&P Assessment and plan (1) Obstipation: Plan Patient is showing good Progress. Her hypocalcemia is improving, her ostomy output was fine over the last 72 hours but she has noted a decrease amount of output over the last 24 to 48 hours. Her p.o. intake has been low. Which may be contributing to this factor. But due to history of chronic constipation we will administer 1 more dose of magnesium citrate with the hopes of helping with intestinal transit. Once discharged patient can follow-up with her primary care team in [place] as well as with her colorectal surgeon, no follow-up with general surgery is required. Attestations 2 Medical Necessity Statement*: Per medical team Coding Level of Care Code Acute Code for Chg Fwd Diagnoses Obstipation K59.00
--- NOTE | 2023-10-13 15:01 | P.DS_ITS ---
Discharge Providers Date of Admission: 10/09/23 20:12 Date of Discharge: October 13, 2023 Attending Provider at Admission: Govind Quintana Attending Provider at Discharge: Govind Quintana Primary Care Provider: Deepa Farris MD Diagnoses at Discharge Discharge Diagnosis (1) Obstipation: Status: Acute Reason for Visit Reason for Visit: sent from [facility] Hospital Course Hospital Course Pleasant 58-year-old lady with metastatic ovarian cancer following with oncology in [place] Dr. Jean, as well as Dr. Amor in [facility], has not had any output from her colostomy in over a week. In ER found to have severe hypercalcemia, calcium of 17.1 with acute kidney injury, creatinine up to 3. During hospitalization she received treatment with IV fluid, calcitonin, denosumab. CT abdomen pelvis not suggestive of obstruction, with noted metastatic disease as per report. Small left pleural effusion. Incidentally noted duodenal ulcer. She was seen by surgery, underwent colostomy irrigation, was started on bowel regimen and had output from colostomy resume. With treatment her hypercalcemia gradually improved. Subjectively she is feeling better repeat LASHAUN has been improving. Calcium is down to 11.6 today, creatinine continues to improve, down to 1.3. Output from colostomy has slowed down somewhat, per discussion with surgery given additional mag citrate. Should follow-up with her surgical team in [place] as discussed with her and family. She would prefer to discharge rather than wait to reassess return of ostomy output, but knows to seek medical attention in case of any worsening or further lack of output. She is started on prescription is given for daily MiraLAX. She knows to stay well-hydrated both due to hypercalcemia and to avoid constipation. She knows that should be having some output from colostomy daily. She will follow-up with oncology in office to reassess chemistry including calcium on Monday. She did require magnesium and potassium supplementation in the hospital and is asked to continue supplementation at discharge. With noted hypertension in the hospital she was started on spironolactone which should help with hypercalcemia, she is asked to discontinue hydrochlorothiazide. She is given a prescription for lisinopril separate from the combo medicine. Please follow-up chemistry to confirm resolution of LASHAUN, as well as calcium, potassium and medium. Monitor for any symptoms of osteonecrosis of the jaw with denosumab. Follow-up calcium to make sure is also not becoming hypocalcemic. Physical Exam 2 Narrative: Accompanied by family. Const: COMMON NORMALS: patient oriented x3 and alert GENERAL APPEARANCE: cooperative ORIENTATION/CONSCIOUSNESS: Yes awake HENMT: COMMON NORMALS: oropharynx normal Neck/C-Spine: COMMON NORMALS: no JVD Resp: COMMON NORMALS: normal respiratory effort and clear to auscultation bilaterally AUSCULTATION: clear to auscultation bilaterally Cardio: COMMON NORMALS: no JVD, regular rhythm, S1 normal heart sound present, S2 normal heart sound present and No murmurs present (Cardio) RHYTHM: regular rhythm HEART SOUNDS: S1 normal heart sound present and S2 normal heart sound present GI: COMMON NORMALS: Normal to inspection, nondistended, normoactive bowel s ounds present, Soft to palpation and non-tender PALPATION: Yes Soft to palpation OTHER: Colostomy. Extremity: COMMON NORMALS: no joint enlargement and no pedal edema Neuro: COMMON NORMALS: patient oriented x3 and moves all extremities SENSORIUM/ORIENTATION: Yes alert Skin: COMMON NORMALS: no rashes or lesions noted GENERAL SKIN EXAM: no rashes or lesions noted Discharge Data Studies Completed and Pending Completed Studies During Hospitalization Category Date Time Status CT abdomen pelvis w con* [id number] Stat Cat Scan 10/09/23 15:22 Completed CXRP [XR chest 1V portable [id number]] Routine Exams 10/11/23 12:45 Completed Pending at discharge Category Date Time Status Basic Metabolic Panel AM LABS Lab 10/14/23 04:00 Ordered Basic Metabolic Panel AM LABS Lab 10/15/23 04:00 Ordered Complete Blood Count w/Auto AM LABS Lab 10/14/23 04:00 Ordered Complete Blood Count w/Auto AM LABS Lab 10/15/23 04:00 Ordered Magnesium AM LABS Lab 10/14/23 04:00 Ordered Magnesium AM LABS Lab 10/15/23 04:00 Ordered Radiology Impressions Abdomen/Pelvis CT 10/09/23 15:22 IMPRESSION: 1. Increase in size of a large necrotic mass in the left retroperitoneum. The mass is invading the left iliacus muscle and displacing and possibly invading the left psoas muscle. There is now necrosis at the superior wall of the mass with superior displacement of fluid out of the mass and development of a loculated fluid collection in the left retroperitoneum between the mass and left kidney with increasing displacement and mass effect on the left kidney. No hydronephrosis. It is uncertain whether this represents sterile fluid or findings could represent infected fluid or an abscess. 2. Interval development of an inflamed duodenal ulcer in the 2nd portion of the duodenum. 3. Stable sigmoidectomy and left lower quadrant colostomy. Increased fecal content in the colon. No evidence for obstruction. 4. Stable small left pleural effusion with left lower lobe compressive atelectasis. 5. Redemonstration of multiple peritoneal implants in the left subdiaphragmatic space, along the inferior surface of the liver, along the right paracolic gutter, and in the mesentery are redemonstrated. The largest in the lower mesentery in the midline has increased in size. Other peritoneal implants are stable. 6. Incidental/nonacute findings are listed in the report. COMMENTS: Consistent with the [place]'s Incidental Findings Committee white paper (J Am Nighat Radiol 2018): Any incidental renal lesion less than 1 cm or classified as too small to characterize, or any incidental cystic renal lesion characterized as simple-appearing, is likely benign. No follow-up imaging is recommended for these lesions per consensus recommendations based on imaging criteria. ADDENDUM: 10/09/23 [id number] THIS REPORT CONTAINS FINDINGS THAT MAY BE CRITICAL TO PATIENT CARE. The findings were verbally communicated via telephone conference with Dr. Bolanos at 5:20 PM ENVIRONMENTAL SERVICES ATTENDANT on 10/09/2023. The findings were acknowledged and understood. Laboratory Results WBC 8.21 10^3/uL (3.29-11.43) 10/13/23 04:47 Corrected WBC Cancelled 10/09/23 15:47 RBC 3.57 10^6/uL (3.85-5.65) L 10/13/23 04:47 Hgb 10.30 g/dL (11.27-16.99) L 10/13/23 04:47 Hct 32.6 % (36-47) L 10/13/23 04:47 MCV 91.3 fl (85-98) 10/13/23 04:47 MCH 28.9 pg (27-33) 10/13/23 04:47 MCHC 31.6 g/dL (30-55) 10/13/23 04:47 RDW 13.3 % (12.1-15.1) 10/13/23 04:47 Plt Count 298 10^3/cmm (157-399) 10/13/23 04:47 MPV 10.0 fL (7.4-10.4) 10/13/23 04:47 Gran % Cancelled 10/09/23 15:47 Neut % (Auto) 71.1 % 10/13/23 04:47 Lymph % (Auto) 14.9 % 10/13/23 04:47 [place] % (Auto) 9.3 % 10/13/23 04:47 Eos % (Auto) 3.5 % 10/13/23 04:47 Baso % (Auto) 0.7 % 10/13/23 04:47 Neut # (Auto) 5.84 10^3/uL (1.8-7.7) 10/13/23 04:47 Lymph # (Auto) 1.2 10^3/uL (0.8-4.8) 10/13/23 04:47 [place] # (Auto) 0.8 10^3/uL (0.2-0.9) 10/13/23 04:47 Eos # (Auto) 0.3 10^3/uL (0.0-0.8) 10/13/23 04:47 Baso # (Auto) 0.1 10^3/uL (0.0-0.1) 10/13/23 04:47 Absolute Gran (auto) Cancelled 10/09/23 15:47 Nucleated RBC % (auto) 0 % 10/13/23 04:47 Nucleated RBCs # 0.0 /100WBC 10/13/23 04:47 Sodium 138 mmol/L (136-145) 10/13/23 04:47 Potassium 3.4 mmol/L (3.5-5.1) L 10/13/23 04:47 Chloride 105 mmol/L (98-107) 10/13/23 04:47 Carbon Dioxide 22 mmol/L (22-29) 10/13/23 04:47 Anion Gap 14.4 (5-19) 10/13/23 04:47 BUN 15 mg/dL (6-20) 10/13/23 04:47 Creatinine 1.3 mg/dL (0.5-0.9) H 10/13/23 04:47 GFR Calculation 41.9 mL/min (90-130) L 10/13/23 04:47 Glucose 80 mg/dL (65-115) 10/13/23 04:47 Calculated Osmolality 286 mOsm/kg (285-295) 10/13/23 04:47 Calcium 11.6 mg/dL (8.5-10.5) H 10/13/23 04:47 Phosphorus 1.9 mg/dL (2.5-4.5) L 10/12/23 05:30 Magnesium 1.4 mg/dL (1.7-2.3) L 10/13/23 04:47 Total Bilirubin 0.4 mg/dL (0.15-1.2) 10/12/23 05:30 AST 66 U/L (0-32) H 10/12/23 05:30 ALT 13 U/L (0-33) 10/12/23 05:30 Alkaline Phosphatase 80 U/L (35-105) 10/12/23 05:30 Total Protein 6.7 g/dL (6.6-8.7) 10/12/23 05:30 Albumin 3.5 g/dL (3.5-5.2) 10/12/23 05:30 Globulin 3.2 g/dL (1.3-4.6) 10/12/23 05:30 Vitals Last Vital Signs Temp 98.2 F 10/13/23 12:00 Pulse 78 10/13/23 12:00 Resp 18 10/13/23 12:00 BP 150/88 10/13/23 12:00 Pulse Ox 96 10/13/23 12:00 O2 Del Method Room Air 10/13/23 12:00 Discharge Plan Discharge Patient Disposition: Home Condition: Stable Prescriptions: New spironolactone 25 mg Tablet 25 mg PO DAILY Qty: 90 0RF lisinopril 20 mg tablet 20 mg PO DAILY Qty: 90 0RF polyethylene glycol 3350 [Miralax] 17 gram/dose powder 4 g PO DAILY Qty: 510 0RF Continued fluoxetine 40 mg capsule 40 mg PO DAILY amlodipine 10 mg tablet 5 mg PO DAILY potassium chloride 10 mEq tablet extended release 10 meq PO DAILY PRN (Reason: on diuretic) Qty: 30 3RF loteprednol etabonate [Lotemax] 0.5 % drops,suspension 1 drp ophthalmic (eye) QID PRN (Reason: UNKNOWN) furosemide 40 mg tablet 40 mg PO DAILY PRN (Reason: lower extrmemity edema) Qty: 30 3RF morphine 30 mg tablet extended release 30 mg PO Q12H 30 Days Qty: 60 0RF morphine 15 mg tablet 15 mg PO Q6H PRN (Reason: pain) 30 Days Qty: 120 0RF pantoprazole 40 mg tablet,delayed release (DR/EC) 40 mg PO DAILY Qty: 30 1RF Discontinued lisinopril-hydrochlorothiazide 20-12.5 mg tablet 1 tab PO BID Discharge Orders: Discharge Order (Routine); Ordered 10/13/23 Ordered By: Govind Quintana Referrals: Deepa Farris MD [Primary Care Provider] - 10/19/23 1:30 pm (APPOINTMENT WITH [facility]) Tristan Amor MD [Hospitalist] - 10/16/23 Patient Instructions: Denosumab (By injection), Colostomy Care (GEN), Hypercalcemia (GEN), Colostomy Irrigation (GEN), Opioid Safety Activity Restrictions/Additional Instructions: Follow-up with your primary provider as well as with oncology regarding elevated calcium level. Do not take any calcium supplements, do not take multivitamins that have calcium. Please stop combination blood pressure pill lisinopril-HCTZ. Lisinopril is prescribed along. HCTZ can make you retain calcium. Monitor blood pressure at home, write down values measuring them twice daily. C ontinue to work to improve blood pressures. You are started on spironolactone instead of the HCTZ which should not cause retention of calcium. Your potassium and magnesium are somewhat low and supplemented in the hospital. Continue magnesium 250 mg daily. Spironolactone and lisinopril should help you retain potassium. Have your primary doctor and/your cancer doctor recheck your magnesium and potassium levels. Avoid dehydration. Stay well-hydrated. Continue MiraLAX daily. Avoid constipation. Follow-up with your surgical team in [place]. Follow-up with your primary doctor for reassessment of a possible duodenal ulcer incidentally seen on CT. Continue pantoprazole. Consider nonemergent endoscopic evaluation. Avoid any NSAIDs. Discharge Attestations Time Spent in Discharge Care*: greater than 30 min Quality Metrics Clinical Quality Measures [ No reported AMI, CVA or VTE this stay] Coding Level of Care Code 57422 Total time (in minutes) for Discharge: 45 Diagnoses Obstipation K59.00
== END 2023-10-13 15:55 | disposition home or self-care (01) | DRG 640 ==
LOC: ER 18:02 → MEDSURG 20:12
PROVIDERS: Nurse Practitioner; Admitting Provider Internal Medicine; Emergency Provider Emergency Medicine; Family Provider Obstetrics & Gynecology Gynecologic Oncology; PCP Internal Medicine; Visit Provider Internal Medicine
DX: E83.52 Hypercalcemia (principal); E88.3 Tumor lysis syndrome; N17.9 Acute kidney failure, unspecified; C56.9 Malignant neoplasm of unspecified ovary; C78.00 Secondary malignant neoplasm of unspecified lung; C78.6 Secondary malignant neoplasm of retroperitoneum and peritoneum; E87.6 Hypokalemia; K59.00 Constipation, unspecified; K26.9 Duodenal ulcer, unspecified as acute or chronic, without hemorrhage or perforation; Z93.3 Colostomy status; Z95.828 Presence of other vascular implants and grafts; F41.9 Anxiety disorder, unspecified; F32.A Depression, unspecified; I10 Essential (primary) hypertension
CPT/HCPCS: 36415; 71045; 74177; 80048; 80053; 82310; 83735; 84100; 85025; 96361; 96372; 96374; 96375; 99285; J0630; J0897; J1170; J2212; J2405; J3010; J3475; J3480; J7030

== ENCOUNTER 2023-10-20 23:24 | Inpatient (IN) | payer MEDICAID, SELFPAY ==
[2023-10-20 23:33] VITALS: BP 108/56; PULSE 114; RESP 22; TEMP 36.8; O2SAT 81
--- NOTE | 2023-10-20 23:48 | XRR_ITS ---
PROCEDURE INFORMATION: Exam: XR Chest Exam date and time: 10/20/2023 11:57 PM Age: 58 years old Clinical indication: Shortness of breath; Prior surgery; Surgery date: 6+ months; Surgery type: [place] port. Gb; Patient HX: C/O SOB. History of ovarian cancer. ; Additional info: Hypoxic TECHNIQUE: Imaging protocol: Radiologic exam of the chest. Views: 1 view. COMPARISON: CR XR chest 1V portable [id number] 10/11/2023 1:00 PM FINDINGS: Tubes, catheters and devices: Left-sided Port-A-Cath. Lungs: Bibasilar atelectasis versus infiltrate. Pleural spaces: Unremarkable. No pleural effusion. No pneumothorax. Heart/Mediastinum: Mild cardiomegaly. Bones/joints: Unremarkable. XR/XR chest 1V [id number] IMPRESSION: 1. Mild cardiomegaly. 2. Bibasilar atelectasis versus infiltrate. 3. Left-sided Port-A-Cath.
--- NOTE | 2023-10-20 23:50 | ECG_ITS ---
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 Measurements Intervals [place] Rate: 108 P: 32 IN: 188 QRS: 13 QRSD: 89 T: 47 QT: 310 QTc: 416 Interpretive Statements SINUS TACHYCARDIA POSSIBLE ANTERIOR MYOCARDIAL INFARCTION , OF INDETERMINATE AGE [30 ms Q WAVE IN V3/V4, OR R < 0.2 mV IN V4] Compared to ECG 11/06/2021 05:33:45 No significant changes Electronically Signed On 10-23-2023 7:58:42 BOOKMOBILE CLERK by Erick Pro M.D. [email or web address]
[2023-10-21] VITALS (11 sets, daily range): BP systolic 89–122; BP diastolic 58–69; PULSE 88–111; RESP 14–20; TEMP 36.3–37.2; O2SAT 92–96; BMI 29.9
--- NOTE | 2023-10-21 | ED_ITS ---
Documented by User: MARY BETH Smith 10/21/23 01:39 HPI - Altered Mental Status 2 General: Chief Complaint: Altered Mental Status Stated Complaint: cancer pt. lethargic possible too much morphine Time Seen by Provider: 10/20/23 23:48 Source: family Mode of arrival: wheelchair Limitations: altered mental status History of Present Illness: Patient presents emergency department today brought by family for evaluation treatment of acute altered mental status. Patient is followed by Dr. Amor over the last couple of years for ovarian cancer. Patient has been receiving chemotherapy but, had recently started getting some hip pain. When it was evaluated, patient was found to have had a mets to the bone in that area. Patient is supposed to be starting a medical trial next week. Patient typically takes oxycodone for her pain however, they switched her over to morphine just recently. It was after patient received morphine today that she started to have her symptoms of altered mental status. Patient also has been having some irregular breathing and thought he heard some wheezing. Patient presents nonverbal and tremoring. Respiratory rate is very slow and oxygen is in the low 80s on room air. reports she has never had symptoms like this after taking pain medication but, this is a new pain medication for her. They state the patient was here last week and has had issues with her electrolytes as well. He did provide her dose of potassium this evening. Review of Systems 2 General: Reports: 10 or more systems reviewed and unremarkable except in HPI and below PFSH ED 2 PFSH: Medical History Ovarian cancer HTN (hypertension) Depression Anxiety Surgical History History of exploratory laparotomy (03/22/22) Low anterior resection with placement of end colostomy History of exploratory laparotomy (03/22/22) total abdominal hysterectomy/BSO, omentectomy, and maximal debulking of peritoneal carcinomatosis History of exploratory laparotomy (03/24/22) Exploratory laparotomy with left colon resection and revision of colostomy Port-A-Cath in place (12/20/21) left subclavian History of tubal ligation History of colonoscopy History of cholecystectomy Family History Mother Colon cancer Cancer Dementia Other Hypertension Denies family history of Diabetes CAD (coronary artery disease) Clotting disorder Hyperlipidemia Psychiatric illness Chronic kidney disease (CKD) Suicide Anesthesia complication Bleeding disorder Lung disease Stroke Social History Smoking and tobacco/nicotine status: never used tobacco/nicotine Alcohol intake: never Substance/Drug Use: never Physical Exam 2 Const: OTHER: Patient presents to the room without ability to respond. She is not currently oriented. HENMT: COMMON NORMALS: normocephalic, atraumatic and Normal external nose present HEAD & SCALP: normal to inspection, normocephalic and atraumatic N OSE: Normal external nose present and Normal nares present Eye: OTHER: Pupils are constricted bilaterally. Patient is not focusing on visual stimuli and does not turn towards activity in the room. Resp: EFFORT & INSPECTION: Yes symmetric chest movement, Yes abnormal respiratory pattern, No tachypneic, Yes decreased respiratory effort, No labored, No stridor, No Actively coughing, No retractions and No audible wheezes OTHER: Patient's respiratory rate is incredibly slowed. Triage indicated 22 respiratory rate however, patient's respiratory rate in the room could not be more than 10-12. Cardio: OTHER: Patient is tachycardic without any obvious murmurs on auscultation. GI: OTHER: Diminished bowel sounds throughout. Abdomen is soft. No response to palpation indicating pain. Neuro: MEHREEN COMA SCALE: document [facility] findings OTHER: Patient is actively twitching and tremoring in the extremities. Patient is not able to respond to questioning and is not able to follow commands. Course 2 Vital Signs: Vital signs: Vital Signs Temperature 99.0 F 10/21/23 20:00 Pulse Rate 100 10/21/23 20:00 Respiratory Rate 18 10/21/23 20:00 Blood Pressure 109/69 10/21/23 20:00 Pulse Oximetry 96 10/21/23 20:00 Oxygen Delivery Me thod Nasal Cannula 10/21/23 20:00 Oxygen Flow Rate 4 10/21/23 08:00 MDM - Altered Mental Status Medical Decision Making Patient presents today for acute mental status change. The thinks she is having a reaction to the new pain medication she is taking. Her respiratory rate is extremely slowed and her blood pressure is low. Patient is hypoxic. In the room she is placed on nasal cannula. With decreased respiratory rate and hypotension with known ingestion of morphine, we did administer Narcan. Patient had noticeable improvement with ability to begin to respond and follow commands. She does look incredibly fatigued and is minimally participatory for what appears to be fatigue. Given the patient did present with altered mental status I did recommend we proceed on with further evaluation with lab work to evaluate for potential other concerns. declined CT of the head (pt still unable to communicate at that time). Patient was found to have an elevated white blood cell count. She was also found to have decreased sodium elevated calcium, acute decrease in GFR and elevated creatinine. Patient also has an elevated procalcitonin with concerns on chest x-ray for bilateral lower lobe infiltrate. After speaking with Dr. Adkins, patient would most likely benefit from admission at this point however, we are still waiting for some labs to come in. I would go talk to the family and the patient. I noticed during my time in the room that the patient's oxygen was beginning to decrease again and was around 90 to 91%. Patient's blood pressure also began to get lower and I noticed she started to tremor again in the extremities. After speaking with Dr. Adkins, we did administer another round of Narcan pain, for concerns of potential sepsis and infection, patient is getting started on Vanco and Zosyn. Blood cultures obtained. Patient was also started on fluids as it does not appear she is dealing with a pleural effusion. Transfer of care of this patient to Dr. Adkins for further management, intervention, and admission. Differential Diagnosis Likely altered mental status, hyponatremia and sepsis; Unlikely alcoholic intoxication, delirium, dementia, hypoglycemia or subarachnoid hemorrhage Lab Data 10/21/23 17:50 10/21/23 00:00 Radiology Impressions Chest X-Ray 10/20/23 23:48 IMPRESSION: 1. Mild cardiomegaly. 2. Bibasilar atelectasis versus infiltrate. 3. Left-sided Port-A-Cath. Abdomen/Pelvis CT 10/21/23 07:00 IMPRESSION: 1. Interval development of a large left perinephric hematoma, compressing left renal parenchyma. There is also interval hemorrhage into that component of the massive retroperitoneal tumor that is immediately subjacent to the lower pole of the left kidney. 2. No hydronephrosis involving either kidney. 3. 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 4. Interval increase in volume of left pleural effusion and development of small right pleural effusion since prior exam. Posterior bibasilar atelectasis is present. THIS REPORT CONTAINS FINDINGS THAT MAY BE CRITICAL TO PATIENT CARE. The findings were verbally communicated via telephone conference with Dr. Camacho at 9:18 AM [employer]S OPERATOR on 10/21/2023. The findings were acknowledged and understood. Carotid Doppler Study 10/21/23 11:18 IMPRESSION: No carotid arterial stenosis. REFERENCES: SRU CRITERIA. The degree of internal carotid artery stenosis is based on criteria defined by the Society of Radiologists in Ultrasound (SRU). Normal is no stenosis. Mild is less than 50% stenosis. Moderate is 50-69% stenosis. Severe is greater than 69% stenosis to near occlusion. Near occlusion is a markedly narrowed lumen. Total occlusion is no detectable patent lumen. Chest CT 10/21/23 11:18 IMPRESSION: 1. Partially consolidated pulmonary parenchymal infiltrate with atelectasis left perihilar region involving medial mid to upper left lung and lower left lung and right perihilar-infrahilar lower right lung, new from previous exam 09/21/2023. 2. Lung windows also demonstrate small amount of scattered ill-defined opacity within the lungs. 3. Mild posterior pleural effusion on the left and small/trace posterior pleural effusion on the right. 4. Mild cardiomegaly. 5. Central venous access catheter or port on the left with tip in the superior vena cava. 6. Interval new partially consolidated infiltrate/atelectasis likely represents bilateral pneumonia. There could be some component fluid overload/CHF regarding appearance of the lungs otherwise and small effusion. Head CT 10/21/23 11:18 IMPRESSION: No acute intracranial abnormality. Laboratory Results WBC 16.46 10^3/uL (3.29-11.43) H 10/21/23 00:00 RBC 3.08 10^6/uL (3.85-5.65) L 10/21/23 00:00 Hgb 9.00 g/dL (11.27-16.99) L 10/21/23 00:00 Hct 28.2 % (36-47) L 10/21/23 00:00 MCV 91.6 fl (85-98) 10/21/23 00:00 MCH 29.2 pg (27-33) 10/21/23 00:00 MCHC 31.9 g/dL (30-55) 10/21/23 00:00 RDW 14.4 % (12.1-15.1) 10/21/23 00:00 Plt Count 231 10^3/cmm (157-399) 10/21/23 00:00 MPV 9.2 fL (7.4-10.4) 10/21/23 00:00 Neut % (Auto) 84.1 % 10/21/23 00:00 Lymph % (Auto) 6.5 % 10/21/23 00:00 Cataño % (Auto) 8.3 % 10/21/23 00:00 Eos % (Auto) 0.1 % 10/21/23 00:00 Baso % (Auto) 0.3 % 10/21/23 00:00 Neut # (Auto) 13.83 10^3/uL (1.8-7.7) H 10/21/23 00:00 Lymph # (Auto) 1.1 10^3/uL (0.8-4.8) 10/21/23 00:00 Cataño # (Auto) 1.4 10^3/uL (0.2-0.9) H 10/21/23 00:00 Eos # (Auto) 0.0 10^3/uL (0.0-0.8) 10/21/23 00:00 Baso # (Auto) 0.1 10^3/uL (0.0-0.1) 10/21/23 00:00 Nucleated RBC % (auto) 0 % 10/21/23 00:00 Nucleated RBCs # 0.0 /100WBC 10/21/23 00:00 ESR 32 mm/hr (0-15) H 10/21/23 00:00 Specimen Type Venous 10/20/23 00:01 Sample Site Not specified 10/20/23 00:01 James Test N/a 10/20/23 00:01 VBG pH 7.50 (7.32-7.42) H 10/20/23 00:01 VBG pCO2 32.7 mmHg (41-51) L 10/20/23 00:01 VBG pO2 157.0 mmHg (25-40) H 10/20/23 00:01 VBG HCO3 25.4 mmol/L (24-28) 10/20/23 00:01 VBG Base Excess 2.3 mmol/L (-3.0-3.0) 10/20/23 00:01 VBG Hematocrit 28.9 % (37-47) L 10/20/23 00:01 O2 Delivery Device Room air 10/20/23 00:01 FiO2 21.0 % 10/20/23 00:01 Practice Performance Manager ID Plasa 10/20/23 00:01 Sodium 129 mmol/L (136-145) L 10/21/23 00:00 Potassium 4.5 mmol/L (3.5-5.1) 10/21/23 00:00 Chloride 92 mmol/L (98-107) L 10/21/23 00:00 Carbon Dioxide 25 mmol/L (22-29) 10/21/23 00:00 Anion Gap 16.5 (5-19) 10/21/23 00:00 BUN 36 mg/dL (6-20) H 10/21/23 00:00 Creatinine 2.7 mg/dL (0.5-0.9) H 10/21/23 00:00 GFR Calculation 18.0 mL/min (90-130) L 10/21/23 00:00 Glucose 103 mg/dL (65-115) 10/21/23 00:00 Calculated Osmolality 277 mOsm/kg (285-295) L 10/21/23 00:00 Lactic Acid 1.4 mmol/L (0.5-2.2) 10/21/23 00:00 Calcium 12.0 mg/dL (8.5-10.5) H 10/21/23 00:00 Total Bilirubin 0.8 mg/dL (0.15-1.2) 10/21/23 00:00 AST 94 U/L (0-32) H 10/21/23 00:00 ALT 16 U/L (0-33) 10/21/23 00:00 Alkaline Phosphatase 97 U/L (35-105) 10/21/23 00:00 Troponin T Baseline 46 ng/L (0-10) H 10/21/23 00:00 Troponin T 120 Minute 42.83 ng/L (0-10) H 10/21/23 02:22 Delta Troponin T -3.17 ABS# (0-10) L 10/21/23 02:22 C-Reactive Protein 298.7 mg/L (0.0-4.9) H 10/20/23 23:57 Total Protein 6.8 g/dL (6.6-8.7) 10/21/23 00:00 Albumin 3.9 g/dL (3.5-5.2) 10/21/23 00:00 Globulin 2.9 g/dL (1.3-4.6) 10/21/23 00:00 Procalcitonin 1.18 ng/mL (0-0.5) H 10/21/23 00:00 Urine Color Yellow (Yellow) 10/21/23 01:25 Urine Appearance Hazy (CLEAR) A 10/21/23 01:25 Urine pH 5 (5-7) 10/21/23 01:25 Ur Specific Willard 1.025 (1.005-1.030) 10/21/23 01:25 Urine Protein 1+ (Negative) H 10/21/23 01:25 Urine Glucose (UA) Norm (Normal) 10/21/23 01:25 Urine Ketones Negative (Negative) 10/21/23 01:25 Urine Blood Neg (Negative) 10/21/23 01:25 Urine Nitrate Negative (Negative) 10/21/23 01:25 Urine Bilirubin Neg (Negative) 10/21/23 01:25 Urine Urobilinogen Norm mg/dL (Negative) 10/21/23 01:25 Ur Leukocyte Esterase Negative (Negative) 10/21/23 01:25 Urine RBC 0-4 /hpf (0-2) H 10/21/23 01:25 Urine WBC 5-10 /hpf (0-5) H 10/21/23 01:25 Ur Squamous Epith Cells 0-4 /hpf (0-5) H 10/21/23 01:25 Amorphous Sediment 2+ /hpf 10/21/23 01:25 Urine Bacteria 2+ /hpf (NONE) H 10/21/23 01:25 Hyaline Casts 5-10 /lpf H 10/21/23 01:25 Fine Granular Casts 0-4 /lpf H 10/21/23 01:25 Coarse Granular Casts 5-10 /lpf H 10/21/23 01:25 Urine Mucus 1+ /hpf 10/21/23 01:25 Urine Opiates Screen Positive ng/mL (Negative) H 10/21/23 01:25 Ur Barbiturates Screen Negative ng/mL (Negative) 10/21/23 01:25 Ur Phencyclidine Scrn Negative ng/mL (Negative) 10/21/23 01:25 Ur Amphetamines Screen Negative ng/mL (Negative) 10/21/23 01:25 U Benzodiazepines Scrn Positive ng/mL (Negative) H 10/21/23 01:25 Urine Cocaine Screen Negative ng/mL (Negative) 10/21/23 01:25 U Marijuana (THC) Screen Negative ng/mL (Negative) 10/21/23 01:25 Ethyl Alcohol < 10 mg/dL (0-10) 10/21/23 00:00 Influenza Type A Ag negative (Negative) 10/21/23 00:00 Influenza Type B Ag negative (Negative) 10/21/23 00:00 SARS-CoV-2 Ag (Rapid) negative (Negative) 10/21/23 00:00 All radiology interpretation(s) finalized by discharge Discharge Plan Discharge Patient Disposition: Admitted As Inpatient Admit Provider: Lacey Garnica Clinical Impression: Anemia, Acute renal failure, Opioid overdose Condition: Stable Coding Level of Care Code ED Jump Roll Operator for Chg Fwd Documented by User: Eblert Adkins DO 10/21/23 21:59 HPI - Altered Mental Status 2 General: Chief Complaint: Altered Mental Status Stated Complaint: cancer pt. lethargic possible too much morphine Time Seen by Provider: 10/20/23 23:48 PFSH ED 2 PFSH: Medical History Ovarian cancer HTN (hypertension) Depression Anxiety Surgical History History of exploratory laparotomy (03/22/22) Low anterior resection with placement of end colostomy History of exploratory laparotomy (03/22/22) total abdominal hysterectomy/BSO, omentectomy, and maximal debulking of peritoneal carcinomatosis History of exploratory laparotomy (03/24/22) Exploratory laparotomy with left colon resection and revision of colostomy Port-A-Cath in place (12/20/21) left subclavian History of tubal ligation History of colonoscopy History of cholecystectomy Family History Mother Colon cancer Cancer Dementia Other Hypertension Denies family history of Diabetes CAD (coronary artery disease) Clotting disorder Hyperlipidemia Psychiatric illness Chronic kidney disease (CKD) Suicide Anesthesia complication Bleeding disorder Lung disease Stroke Social History Smoking and tobacco/nicotine status: never used tobacco/nicotine Alcohol intake: never Substance/Drug Use: never Course 2 Vital Signs: Vital signs: Vital Signs Temperature 99.0 F 10/21/23 20:00 Pulse Rate 100 10/21/23 20:00 Respiratory Rate 18 10/21/23 20:00 Blood Pressure 109/69 10/21/23 20:00 Pulse Oximetry 96 10/21/23 20:00 Oxygen Delivery Me thod Nasal Cannula 10/21/23 20:00 Oxygen Flow Rate 4 10/21/23 08:00 MDM - Altered Mental Status Medical Decision Making Patient presents today for acute mental status change. The thinks she is having a reaction to the new pain medication she is taking. Her respiratory rate is extremely slowed and her blood pressure is low. Patient is hypoxic. In the room she is placed on nasal cannula. With decreased respiratory rate and hypotension with known ingestion of morphine, we did administer Narcan. Patient had noticeable improvement with ability to begin to respond and follow commands. She does look incredibly fatigued and is minimally participatory for what appears to be fatigue. Given the patient did present with altered mental status I did recommend we proceed on with further evaluation with lab work to evaluate for potential other concerns. declined CT of the head (pt still unable to communicate at that time). Patient was found to have an elevated white blood cell count. She was also found to have decreased sodium elevated calcium, acute decrease in GFR and elevated creatinine. Patient also has an elevated procalcitonin with concerns on chest x-ray for bilateral lower lobe infiltrate. After speaking with Dr. Adkins, patient would most likely benefit from admission at this point however, we are still waiting for some labs to come in. I would go talk to the family and the patient. I noticed during my time in the room that the patient's oxygen was beginning to decrease again and was around 90 to 91%. Patient's blood pressure also began to get lower and I noticed she started to tremor again in the extremities. After speaking with Dr. Adkins, we did administer another round of Narcan pain, for concerns of potential sepsis and infection, patient is getting started on Vanco and Zosyn. Blood cultures obtained. Patient was also started on fluids as it does not appear she is dealing with a pleural effusion. Transfer of care of this patient to Dr. Adkins for further management, intervention, and admission. This patient was originally seen by Michelle John PaulNATHALIE.? I agree with her history, evaluation, and treatment. Spoke with hospitalist. Will admit the patient for continued hypoxic respiratory failure, acute kidney injury with resulting accidental opiate overdose requiring intermittent doses of Narcan and oxygen support. Explained to the family, that we do not want to throw her into full withdrawal by reversing her opiates completely, as she would be at risk at that point for vomiting and aspiration, etc. Lab Data 10/21/23 17:50 10/21/23 00:00 Radiology Impressions Chest X-Ray 10/20/23 23:48 IMPRESSION: 1. Mild cardiomegaly. 2. Bibasilar atelectasis versus infiltrate. 3. Left-sided Port-A-Cath. Abdomen/Pelvis CT 10/21/23 07:00 IMPRESSION: 1. Interval development of a large left perinephric hematoma, compressing left renal parenchyma. There is also interval hemorrhage into that component of the massive retroperitoneal tumor that is immediately subjacent to the lower pole of the left kidney. 2. No hydronephrosis involving either kidney. 3. 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 4. Interval increase in volume of left pleural effusion and development of small right pleural effusion since prior exam. Posterior bibasilar atelectasis is present. THIS REPORT CONTAINS FINDINGS THAT MAY BE CRITICAL TO PATIENT CARE. The findings were verbally communicated via telephone conference with Dr. Camacho at 9:18 AM [employer] OPERATOR on 10/21/2023. The findings were acknowledged and understood. Carotid Doppler Study 10/21/23 11:18 IMPRESSION: No carotid arterial stenosis. REFERENCES: SRU CRITERIA. The degree of internal carotid artery stenosis is based on criteria defined by the Society of Radiologists in Ultrasound (SRU). Normal is no stenosis. Mild is less than 50% stenosis. Moderate is 50-69% stenosis. Severe is greater than 69% stenosis to near occlusion. Near occlusion is a markedly narrowed lumen. Total occlusion is no detectable patent lumen. Chest CT 10/21/23 11:18 IMPRESSION: 1. Partially consolidated pulmonary parenchymal infiltrate with atelectasis left perihilar region involving medial mid to upper left lung and lower left lung and right perihilar-infrahilar lower right lung, new from previous exam 09/21/2023. 2. Lung windows also demonstrate small amount of scattered ill-defined opacity within the lungs. 3. Mild posterior pleural effusion on the left and small/trace posterior pleural effusion on the right. 4. Mild cardiomegaly. 5. Central venous access catheter or port on the left with tip in the superior vena cava. 6. Interval new partially consolidated infiltrate/atelectasis likely represents bilateral pneumonia. There could be some component fluid overload/CHF regarding appearance of the lungs otherwise and small effusion. Head CT 10/21/23 11:18 IMPRESSION: No acute intracranial abnormality. Laboratory Results WBC 16.46 10^3/uL (3.29-11.43) H 10/21/23 00:00 RBC 3.08 10^6/uL (3.85-5.65) L 10/21/23 00:00 Hgb 9.00 g/dL (11.27-16.99) L 10/21/23 00:00 Hct 28.2 % (36-47) L 10/21/23 00:00 MCV 91.6 fl (85-98) 10/21/23 00:00 MCH 29.2 pg (27-33) 10/21/23 00:00 MCHC 31.9 g/dL (30-55) 10/21/23 00:00 RDW 14.4 % (12.1-15.1) 10/21/23 00:00 Plt Count 231 10^3/cmm (157-399) 10/21/23 00:00 MPV 9.2 fL (7.4-10.4) 10/21/23 00:00 Neut % (Auto) 84.1 % 10/21/23 00:00 Lymph % (Auto) 6.5 % 10/21/23 00:00 Cataño % (Auto) 8.3 % 10/21/23 00:00 Eos % (Auto) 0.1 % 10/21/23 00:00 Baso % (Auto) 0.3 % 10/21/23 00:00 Neut # (Auto) 13.83 10^3/uL (1.8-7.7) H 10/21/23 00:00 Lymph # (Auto) 1.1 10^3/uL (0.8-4.8) 10/21/23 00:00 Cataño # (Auto) 1.4 10^3/uL (0.2-0.9) H 10/21/23 00:00 Eos # (Auto) 0.0 10^3/uL (0.0-0.8) 10/21/23 00:00 Baso # (Auto) 0.1 10^3/uL (0.0-0.1) 10/21/23 00:00 Nucleated RBC % (auto) 0 % 10/21/23 00:00 Nucleated RBCs # 0.0 /100WBC 10/21/23 00:00 ESR 32 mm/hr (0-15) H 10/21/23 00:00 Specimen Type Venous 10/20/23 00:01 Sample Site Not specified 10/20/23 00:01 James Test N/a 10/20/23 00:01 VBG pH 7.50 (7.32-7.42) H 10/20/23 00:01 VBG pCO2 32.7 mmHg (41-51) L 10/20/23 00:01 VBG pO2 157.0 mmHg (25-40) H 10/20/23 00:01 VBG HCO3 25.4 mmol/L (24-28) 10/20/23 00:01 VBG Base Excess 2.3 mmol/L (-3.0-3.0) 10/20/23 00:01 VBG Hematocrit 28.9 % (37-47) L 10/20/23 00:01 O2 Delivery Device Room air 10/20/23 00:01 FiO2 21.0 % 10/20/23 00:01 Practice Performance Manager ID Plasa 10/20/23 00:01 Sodium 129 mmol/L (136-145) L 10/21/23 00:00 Potassium 4.5 mmol/L (3.5-5.1) 10/21/23 00:00 Chloride 92 mmol/L (98-107) L 10/21/23 00:00 Carbon Dioxide 25 mmol/L (22-29) 10/21/23 00:00 Anion Gap 16.5 (5-19) 10/21/23 00:00 BUN 36 mg/dL (6-20) H 10/21/23 00:00 Creatinine 2.7 mg/dL (0.5-0.9) H 10/21/23 00:00 GFR Calculation 18.0 mL/min (90-130) L 10/21/23 00:00 Glucose 103 mg/dL (65-115) 10/21/23 00:00 Calculated Osmolality 277 mOsm/kg (285-295) L 10/21/23 00:00 Lactic Acid 1.4 mmol/L (0.5-2.2) 10/21/23 00:00 Calcium 12.0 mg/dL (8.5-10.5) H 10/21/23 00:00 Total Bilirubin 0.8 mg/dL (0.15-1.2) 10/21/23 00:00 AST 94 U/L (0-32) H 10/21/23 00:00 ALT 16 U/L (0-33) 10/21/23 00:00 Alkaline Phosphatase 97 U/L (35-105) 10/21/23 00:00 Troponin T Baseline 46 ng/L (0-10) H 10/21/23 00:00 Troponin T 120 Minute 42.83 ng/L (0-10) H 10/21/23 02:22 Delta Troponin T -3.17 ABS# (0-10) L 10/21/23 02:22 C-Reactive Protein 298.7 mg/L (0.0-4.9) H 10/20/23 23:57 Total Protein 6.8 g/dL (6.6-8.7) 10/21/23 00:00 Albumin 3.9 g/dL (3.5-5.2) 10/21/23 00:00 Globulin 2.9 g/dL (1.3-4.6) 10/21/23 00:00 Procalcitonin 1.18 ng/mL (0-0.5) H 10/21/23 00:00 Urine Color Yellow (Yellow) 10/21/23 01:25 Urine Appearance Hazy (CLEAR) A 10/21/23 01:25 Urine pH 5 (5-7) 10/21/23 01:25 Ur Specific Willard 1.025 (1.005-1.030) 10/21/23 01:25 Urine Protein 1+ (Negative) H 10/21/23 01:25 Urine Glucose (UA) Norm (Normal) 10/21/23 01:25 Urine Ketones Negative (Negative) 10/21/23 01:25 Urine Blood Neg (Negative) 10/21/23 01:25 Urine Nitrate Negative (Negative) 10/21/23 01:25 Urine Bilirubin Neg (Negative) 10/21/23 01:25 Urine Urobilinogen Norm mg/dL (Negative) 10/21/23 01:25 Ur Leukocyte Esterase Negative (Negative) 10/21/23 01:25 Urine RBC 0-4 /hpf (0-2) H 10/21/23 01:25 Urine WBC 5-10 /hpf (0-5) H 10/21/23 01:25 Ur Squamous Epith Cells 0-4 /hpf (0-5) H 10/21/23 01:25 Amorphous Sediment 2+ /hpf 10/21/23 01:25 Urine Bacteria 2+ /hpf (NONE) H 10/21/23 01:25 Hyaline Casts 5-10 /lpf H 10/21/23 01:25 Fine Granular Casts 0-4 /lpf H 10/21/23 01:25 Coarse Granular Casts 5-10 /lpf H 10/21/23 01:25 Urine Mucus 1+ /hpf 10/21/23 01:25 Urine Opiates Screen Positive ng/mL (Negative) H 10/21/23 01:25 Ur Barbiturates Screen Negative ng/mL (Negative) 10/21/23 01:25 Ur Phencyclidine Scrn Negative ng/mL (Negative) 10/21/23 01:25 Ur Amphetamines Screen Negative ng/mL (Negative) 10/21/23 01:25 U Benzodiazepines Scrn Positive ng/mL (Negative) H 10/21/23 01:25 Urine Cocaine Screen Negative ng/mL (Negative) 10/21/23 01:25 U Marijuana (THC) Screen Negative ng/mL (Negative) 10/21/23 01:25 Ethyl Alcohol < 10 mg/dL (0-10) 10/21/23 00:00 Influenza Type A Ag negative (Negative) 10/21/23 00:00 Influenza Type B Ag negative (Negative) 10/21/23 00:00 SARS-CoV-2 Ag (Rapid) negative (Negative) 10/21/23 00:00 Discharge Plan Discharge Patient Disposition: Admitted As Inpatient Admit Provider: Lacey Garnica Clinical Impression: Anemia, Acute renal failure, Opioid overdose Condition: Stable Coding Level of Care Code ED Jump Roll Operator for Char Hatch
[2023-10-21] MEDS: naloxone 0.4 mg/ml SDV IVP ×2 (00:02→01:26)
[2023-10-21 00:08] LABS: Basophils # 0.1 10^3/uL (0.0-0.1); Basophils % 0.3 %; Eosinophils % 0.1 %; Hematocrit 28.2 % (36-47); Lymphocytes # 1.1 10^3/uL (0.8-4.8); Lymphocytes % 6.5 %; Mean Corpuscular HGB Conc 31.9 g/dL (30-55); Mean Corpuscular Hemoglobin 29.2 pg (27-33); Mean Corpuscular Volume 91.6 fl (85-98); Mean Platelet Volume 9.2 fL (7.4-10.4); Monocytes # 1.4 10^3/uL (0.2-0.9); Monocytes % 8.3 %; Neutrophils # 13.83 10^3/uL (1.8-7.7); Neutrophils % 84.1 %; Nucleated Red Blood Cells % 0 %; Platelet Count 231 10^3/cmm (157-399); Red Blood Count 3.08 10^6/uL (3.85-5.65); Red Cell Distribution Width 14.4 % (12.1-15.1); White Blood Count 16.46 10^3/uL (3.29-11.43)
[2023-10-21 00:20] LABS: Base Excess VBG 2.3 mmol/L (-3.0-3.0); Blood Gas Sample Site Not specified; Blood Gas Sample Type Venous; HCO3 VBG 25.4 mmol/L (24-28); Oxygen Device ROOM AIR; PCO2 VBG 32.7 mmHg (41-51); Venous Blood Gas Hematocrit 28.9 % (37-47)
[2023-10-21 00:26] LABS: Erythrocyte Sedimentation Rate 32 mm/hr (0-15); Influenza A by IFA negative (Negative); Influenza B by IFA negative (Negative); SARS Covid-2 Antigen negative (Negative); Troponin(5th) Baseline 46 ng/L (0-10)
[2023-10-21 00:27] LABS: Alanine Aminotransferase 16 U/L (0-33); Albumin Level 3.9 g/dL (3.5-5.2); Alkaline Phosphatase 97 U/L (35-105); Anion Gap 16.5 (5-19); Aspartate Amino Transferase 94 U/L (0-32); Blood Urea Nitrogen 36 mg/dL (6-20); Carbon Dioxide 25 mmol/L (22-29); Chloride 92 mmol/L (98-107); Globulin 2.9 g/dL (1.3-4.6); Glucose 103 mg/dL (65-115); Osmolality Calculated 277 mOsm/kg (285-295); Potassium 4.5 mmol/L (3.5-5.1); Sodium 129 mmol/L (136-145); Total Bilirubin 0.8 mg/dL (0.15-1.2); Total Protein 6.8 g/dL (6.6-8.7)
[2023-10-21 00:28] LABS: Lactic Sepsis W/Reflex 1.4 mmol/L (0.5-2.2)
[2023-10-21 00:30] LABS: Alcohol Level < 10 mg/dL (0-10)
[2023-10-21 00:34] LABS: Procalcitonin 1.18 ng/mL (0-0.5)
[2023-10-21] MEDS: sodium chloride 0.9% 2,245.29 ML 2245.29 ML IV (01:07)
[2023-10-21] MEDS: piperacillin-tazobactam 4.5 GM in sodium chloride 0.9% (plus) 50 ML IV (01:07)
[2023-10-21 01:38] LABS: Add Urine Microscopic? YES; Bilirubin Urine Neg (Negative); Blood Urine Neg (Negative); Glucose Urine UA Norm (Normal); Ketones Urine Negative (Negative); Leukocyte Esterase Urine Negative (Negative); Nitrate Urine Negative (Negative); Protein Urine 1+ (Negative); Specific Gravity, Urine 1.025 (1.005-1.030); Urine Appearance Hazy (CLEAR); Urine Color Yellow (Yellow); Urobilinogen Urine Norm (Negative); pH Urine 5 (5-7)
[2023-10-21 01:40] LABS: RBC Urine 0-4 /hpf (0-2)
[2023-10-21 01:41] LABS: Amorphous Sediment Urine 2+ /hpf; Bacteria Urine 2+ /hpf; Fine Granular Casts Urine 0-4 /lpf; Mucus Urine 1+ /hpf; Squamous Epithelial Cell Urine 0-4 /hpf (0-5)
[2023-10-21 01:42] LABS: Amphetamines Screen Urine Negative (Negative); Barbiturates Screen Urine Negative (Negative); Benzodiazepines Screen Urine Positive (Negative); Cocaine Screen Urine Negative (Negative); Opiate Screen Urine Positive (Negative); PCP Screen Urine Negative (Negative); THC Screen Urine Negative (Negative)
--- NOTE | 2023-10-21 01:50 | ECG_ITS ---
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 Measurements Intervals [place] Rate: 99 P: 33 MI: 185 QRS: 7 QRSD: 94 T: 45 QT: 323 QTc: 415 Interpretive Statements SINUS RHYTHM POSSIBLE ANTERIOR MYOCARDIAL INFARCTION , OF INDETERMINATE AGE [30 ms Q WAVE IN V3/V4, OR R < 0.2 mV IN V4] Compared to ECG 10/21/2023 00:18:01 Sinus tachycardia no longer present Myocardial infarct finding still present Electronically Signed On 10-23-2023 8:05:59 OFFICE ADMINISTRATION INSTRUCTOR by Erick Pro M.D. [email or web address]
[2023-10-21] MEDS: vancomycin 1,000 MG in sodium chloride 0.9% 250 ML 250 MG IV (02:43)
[2023-10-21 02:55] LABS: Troponin 5 2HR 42.83 ng/L (0-10)
[2023-10-21 02:57] LABS: Troponin 5 2HR Delta -3.17 ABS# (0-10)
--- NOTE | 2023-10-21 05:18 | P.HP_ITS ---
Providers/Chief Complaint 2 Admitting Physician: Lacey Garnica MD Primary Care Provider: Deepa Farris MD Chief Complaint: cancer pt. lethargic possible too much morphine History of Present Illness Genny Diaz is a 58 year old female with metastatic ovarian cancer and extensive peritoneal carcinomatosis recently admitted here until October 14, 2019 with hypercalcemia and poor colostomy output. She presents today with altered mental status. Her daughter reports that patient was recently seen as outpatient, had complained of increasing abdominal pain for which she was started on 15 mg of immediate release morphine and 30 mg of extended release morphine. She took the extended release morphine on Monday and has been very lethargic since then. Per daughter she has essentially laid in the bed, not had any significant oral intake. Has not gotten up to go to the bathroom etc. Reported unable ER she was noted to be lethargic, she received Narcan x 2 after which her mental status is improved. She is able to wake up to calling name, able to answer simple questions such as name date of fact that she is in the hospital etc. Denies any fever, chills, nausea, vomiting or diarrhea. Denies URI symptoms, chest pain, dyspnea, palpitations Review of Systems 2 General: Reports: ROS unobtainable due to mental status Medications/Allergies Home Medications Medication Instructions Recorded Confirmed Last Taken Type fluoxetine 40 mg capsule 40 mg PO DAILY 03/02/21 10/16/23 10/09/23 History amlodipine 10 mg tablet 5 mg PO DAILY 02/22/23 10/16/23 10/09/23 History loteprednol etabonate 0.5 % eye 1 drp ophthalmic (eye) QID PRN 05/17/23 10/16/23 09/27/23 History drops,suspension (Lotemax) UNKNOWN furosemide 40 mg tablet 40 mg PO DAILY PRN lower 07/05/23 10/16/23 Unknown Rx extrmemity edema #30 tabs morphine 15 mg immediate release 15 mg PO Q6H PRN pain 30 days #120 09/22/23 10/16/23 10/09/23 Rx tablet tabs morphine 30 mg tablet,extended 30 mg PO Q12H 30 days #60 tabs 09/22/23 10/16/23 10/09/23 Rx release pantoprazole 40 mg tablet,delayed 40 mg PO DAILY #30 tabs 10/03/23 10/16/23 10/09/23 Rx release lisinopril 20 mg tablet 20 mg PO DAILY #90 tabs 10/13/23 10/16/23 Unknown Rx polyethylene glycol 3350 17 4 g PO DAILY #510 grams 10/13/23 10/16/23 Unknown Rx gram/dose oral powder (Miralax) spironolactone 25 mg tablet 25 mg PO DAILY #90 tabs 10/13/23 10/16/23 Unknown Rx Wheeled seated walker #1 ea 10/17/23 10/17/23 Unknown Rx potassium chloride 10 mEq 10 meq PO BID PRN on diuretic #60 10/17/23 Unknown Rx tablet,extended release tabs lactulose 20 gram/30 mL oral 20 g (30 mL) PO .COMPLEX 10/19/23 Unknown Rx solution constipation #1,200 mL lubiprostone 24 mcg capsule 24 mcg PO BID #60 caps 10/19/23 Unknown Rx (Amitiza) Allergies Allergy/AdvReac Type Severity Reaction Status Date / Time No Known Allergies Allergy Verified 10/20/23 23:44 PFSH Acute 2 PFSH: Medical History Ovarian cancer HTN (hypertension) Depression Anxiety Surgical History History of exploratory laparotomy (03/22/22) Low anterior resection with placement of end colostomy History of exploratory laparotomy (03/22/22) total abdominal hysterectomy/BSO, omentectomy, and maximal debulking of peritoneal carcinomatosis History of exploratory laparotomy (03/24/22) Exploratory laparotomy with left colon resection and revision of colostomy Port-A-Cath in place (12/20/21) left subclavian History of tubal ligation History of colonoscopy History of cholecystectomy Family History Mother Colon cancer Cancer Dementia Other Hypertension Denies family history of Diabetes CAD (coronary artery disease) Clotting disorder Hyperlipidemia Psychiatric illness Chronic kidney disease (CKD) Suicide Anesthesia complication Bleeding disorder Lung disease Stroke Social History Smoking and tobacco/nicotine status: never used tobacco/nicotine Alcohol intake: never Substance/Drug Use: never Vitals/I&O/Wt Last Vital Signs Temp 98.3 F 10/20/23 23:33 Pulse 102 H 10/21/23 03:26 Resp 14 10/21/23 03:26 BP 122/61 10/21/23 03:26 Pulse Ox 92 10/21/23 03:26 O2 Del Method Nasal Cannula 10/21/23 03:45 10/20/23 10/20/23 10/21/23 14:59 22:59 06:59 Intake Total 2545.29 / 2545.29 Balance 2545.29 / 2545.29 Weight last 48 hrs Weight 76.702 kg Weight 74.843 kg Physical Exam 2 Narrative: General: No acute distress, AO x2, wakes up to calling name but still very drowsy , chronically ill appearing HEENT: PERRLA, pupils bilaterally equal and reactive, pallors not present Chest: Normal vesicular breath sounds, no added sounds, equal good air entry bilaterally CVS: S1-S2 regular, no murmurs, no tachycardia, no gallops, no rubs Abdomen: Soft, nontender, no organomegaly, bowel sounds present Neuro: No focal deficits, Urinary Catheter Management: Anaya: Cath Placed During This Visit: yes Urinary Catheter Date of Insertion: 10/21/23 Data 10/21/23 00:00 10/21/23 00:00 A&P Assessment and plan (1) Acute kidney injury: (2) Overdose opiate: Plan 58-year-old female presenting with increased lethargy and altered mental status brought in by family. Recently started taking extended release morphine. Given Narcan in the emergency room after which her mental status improved to the point of being able to be awakened, answers simple questions in conversation. Suspect that her lethargy may have been related to opiate. Patient appears to be comfortable currently. If develops pain, will likely start off with lower doses of morphine. Noted to have acute kidney injury, creatinine today at 2.7. Likely related to dehydration given for poor p.o. intake over the last 2 days. Additionally noted to have multiple peritoneal masses in the abdomen in close proximity to the kidney. Will obtain CT KUB to evaluate for interval development of hydronephrosis. Anaya catheter placed IV fluids normal saline at 75 cc an hour Closely monitor urine output and mental status. Attestations 2 Medical Necessity Statement*: Greater than 2 midnight admission is anticipated at this time Coding Level of Care Code Acute Code for Chg Fwd Diagnoses Acute kidney injury N17.9 Overdose opiate T40.601A
[2023-10-21 06:47] LABS: Troponin 5 6HR 44.26 ng/L (0-10)
[2023-10-21 06:49] LABS: Troponin 5 6HR Delta -1.74 ng/L (0-12)
[2023-10-21 06:54] LABS: Glucose Point of Care 107 mg/dL (70-110)
--- NOTE | 2023-10-21 07:00 | CTR_ITS ---
PROCEDURE INFORMATION: Exam: CT Abdomen And Pelvis Without Contrast Exam date and time: 10/21/2023 8:47 AM Age: 58 years old Clinical indication: Evaluate for hydronephrosis; large left retroperitoneal tumor. Prior surgery; Surgery date: 6+ months; Surgery type: Hysto, gb, colon TECHNIQUE: Imaging protocol: Computed tomography of the abdomen and pelvis without contrast. Radiation optimization: All CT scans at this facility use at least one of these dose optimization techniques: automated exposure control; mA and/or kV adjustment per patient size (includes targeted exams where dose is matched to clinical indication); or iterative reconstruction. COMPARISON: CT abdomen pelvis w con* [id number] 10/09/2023 3:52 PM RADIATION DOSE METRICS: Total DLP (mGy-cm): 638.02 FINDINGS: Since previous exam on 10/09/2023, the patient has developed a nearly circumferential left perinephric hematoma, partially compressing the left kidney. There is no hydronephrosis. The component of the large left retroperitoneal tumor that it immediately abuts the inferior pole of the left kidney also shows heterogeneously increased attenuation which is new compared to prior study, compatible with hemorrhage into this necrotic or cystic component of tumor. Overall size of the massive tumor at and above the left iliac fossa does not appear significantly changed. Redemonstration of multiple tumor deposits within the peritoneal cavity, abutting the left hemidiaphragm and also in the right subhepatic space. Hepatomegaly is similar to previous exam. No evidence of bowel obstruction. Urinary bladder decompressed by Anaya catheter. Interval increase in left pleural effusion and development of small right pleural effusion since the prior study. Bilateral lower lung zone atelectasis is present. CT/CT kidney stone [id number] IMPRESSION: 1. Interval development of a large left perinephric hematoma, compressing left renal parenchyma. There is also interval hemorrhage into that component of the massive retroperitoneal tumor that is immediately subjacent to the lower pole of the left kidney. 2. No hydronephrosis involving either kidney. 3. 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 4. Interval increase in volume of left pleural effusion and development of small right pleural effusion since prior exam. Posterior bibasilar atelectasis is present. THIS REPORT CONTAINS FINDINGS THAT MAY BE CRITICAL TO PATIENT CARE. The findings were verbally communicated via telephone conference with Dr. Camacho at 9:18 AM CLINICAL PSYCHIATRIST on 10/21/2023. The findings were acknowledged and understood.
[2023-10-21] MEDS: heparin 5,000 unit/mL INJ 1 mL 5000 UNIT SUBCUT (09:03)
[2023-10-21] MEDS: pantoprazole DR 40 mg Tablet PO (09:04)
[2023-10-21] MEDS: sodium chloride 0.9% 1,000 ML 75 ML IV ×2 (09:04→21:08)
[2023-10-21 09:19] LABS: C Reactive Protein 298.7 mg/L (0.0-4.9)
--- NOTE | 2023-10-21 10:39 | PC.CHAP ---
Routine visit: Prayed with pat. Pat believes in the Lord and has family support
--- NOTE | 2023-10-21 11:18 | USCV_ITS ---
Genny Diaz Age: 58 Gender: F : 1965 Exam Date: 10/21/2023 16:00 Ordering Phys: Don Camacho MD Technologist: Sanket Manrique Exam Location: [facility] Indication: nstemi BP: 102 / 61 HR: 105 Rhythm: Sinus Technical Quality: Adequate MEASUREMENTS (Male / Female) Normal Values 2D ECHO LVOT Diameter 2.0 cm LV Ejection Fraction MOD 2C 61.1 % LV Ejection Fraction 2C AL 61.9 % LA Diameter 3.1 cm LA Width 3.2 cm LA Height 5.0 cm RA Width 3.1 cm RA Height 4.0 cm Aorta at Sinotubular Diameter 1.8 cm IVC Diameter 2.0 cm M-MODE Aortic Annulus Diameter 3.3 cm LA Ao Ratio MM 1.0 MV E Point Septal Separation 0.4 cm DOPPLER AV Peak Velocity 249.8 cm/s LVOT Peak Velocity 171.0 cm/s AV Area Cont Eq vti 2.2 cm squared AV Area Cont Eq pk 2.2 cm squared MV Peak Velocity 151.0 cm/s MV Area PHT 5.0 cm squared Mitral E to A Ratio 0.8 MV E' Velocity 51.5 cm/s Mitral E to MV E' Ratio 6.5 Mitral E to LV E' Lateral Ratio 6.0 Mitral E to LV E' Septal Ratio 7.0 TR Peak Velocity 299.4 cm/s TR Peak Gradient 35.9 mmHg TR Mean Velocity 247.6 cm/s TR Mean Gradient 25.9 mmHg TR Velocity Time Integral 69.6 cm Right Atrial Pressure 8.0 mmHg Pulmonary Artery Systolic Pressu 43.9 mmHg PV Peak Velocity 127.5 cm/s RV Acceleration Time 0.1 s RV Ejection Time 0.3 s RV AcT/ET 0.4 FINDINGS Left Ventricle Normal left ventricular size, systolic function and wall thickness, with no regional wall motion abnormalities. Normal left ventricular wall thickness. Normal diastolic filling pattern. Right Ventricle The right ventricle is normal in size and function. Right Atrium The right atrium is normal in size. Left Atrium The left atrium is normal in size. Mitral Valve Structurally normal mitral valve without significant stenosis or prolapse. There is no mitral regurgitation. Aortic Valve Structurally normal aortic valve without significant sclerosis or stenosis. There is no aortic regurgitation. Tricuspid Valve Structurally normal tricuspid valve without significant stenosis. There is trivial regurgitation. Pulmonary artery systolic pressure is normal. Pulmonic Valve Structurally normal pulmonic valve without significant stenosis. There is no pulmonic regurgitation. Pericardium Normal pericardium without effusion. Aorta Normal ascending aorta dimension. IVC The inferior vena cava appears normal. CONCLUSIONS Normal LV function with no significant valvular disease. Enrique Lazcano MD (Electronically Signed) Final Date: 22 October 2023 10:18 S
--- NOTE | 2023-10-21 11:18 | USR_ITS ---
PROCEDURE INFORMATION: Exam: US Duplex Bilateral Extracranial Arteries; Complete; Carotid Arteries Exam date and time: 10/21/2023 4:26 PM Age: 58 years old Clinical indication: Altered mental status/memory loss; Confusion or disorientation; Additional info: AMS TECHNIQUE: Imaging protocol: Real-time duplex ultrasound scan of the bilateral extracranial arteries combining bautista scale, color Doppler and spectral waveform analysis with image documentation. Complete exam. Exam focused on the carotid arteries. COMPARISON: CT head wo con* [id number] 10/21/2023 1:56 PM FINDINGS: Right common carotid artery: Unremarkable. No occlusion or stenosis. Waveforms are normal. Right internal carotid artery: Unremarkable. No occlusion or stenosis. Waveforms are normal. Right ICA/CCA ratio: Within normal limits. Right external carotid artery: No stenosis in the origin. Right vertebral artery: Unremarkable. Antegrade flow. Left common carotid artery: Unremarkable. No occlusion or stenosis. Waveforms are normal. Left internal carotid artery: Unremarkable. No occlusion or stenosis. Waveforms are normal. Left ICA/CCA ratio: Within normal limits. Left external carotid artery: No stenosis in the origin. Left vertebral artery: Unremarkable. Antegrade flow. US/CV carotid duplex BI* [id number] IMPRESSION: No carotid arterial stenosis. REFERENCES: SRU CRITERIA. The degree of internal carotid artery stenosis is based on criteria defined by the Society of Radiologists in Ultrasound (SRU). Normal is no stenosis. Mild is less than 50% stenosis. Moderate is 50-69% stenosis. Severe is greater than 69% stenosis to near occlusion. Near occlusion is a markedly narrowed lumen. Total occlusion is no detectable patent lumen.
--- NOTE | 2023-10-21 11:18 | CTR_ITS ---
PROCEDURE INFORMATION: Exam: CT Head Without Contrast Exam date and time: 10/21/2023 1:56 PM Age: 58 years old Clinical indication: Altered mental status/memory loss; Additional info: AMS TECHNIQUE: Imaging protocol: Computed tomography of the head without contrast. Radiation optimization: All CT scans at this facility use at least one of these dose optimization techniques: automated exposure control; mA and/or kV adjustment per patient size (includes targeted exams where dose is matched to clinical indication); or iterative reconstruction. COMPARISON: No relevant prior studies available. RADIATION DOSE METRICS: Total DLP (mGy-cm): 991.14 FINDINGS: Brain: Normal. No hemorrhage. No mass effect or midline shift. Cortical sulci and white matter are unremarkable for age. Cerebral ventricles: Unremarkable for age. Paranasal sinuses: Visualized sinuses are unremarkable. No fluid levels. Mastoid air cells: Visualized mastoid air cells are well aerated. Bones/joints: Unremarkable. No acute fracture. Soft tissues: Unremarkable. CT/CT head wo con* [id number] IMPRESSION: No acute intracranial abnormality.
--- NOTE | 2023-10-21 11:18 | CTR_ITS ---
PROCEDURE INFORMATION: Exam: CT Chest Without Contrast; Diagnostic Exam date and time: 10/21/2023 1:58 PM Age: 58 years old Clinical indication: Shortness of breath; Additional info: AMS TECHNIQUE: Imaging protocol: Diagnostic computed tomography of the chest without contrast. Radiation optimization: All CT scans at this facility use at least one of these dose optimization techniques: automated exposure control; mA and/or kV adjustment per patient size (includes targeted exams where dose is matched to clinical indication); or iterative reconstruction. COMPARISON: CT chest abdpel w/*[id number] 09/21/2023 8:29 AM RADIATION DOSE METRICS: Total DLP (mGy-cm): 440.02 FINDINGS: Tubes, catheters and devices: Central venous access catheter or port on the left with tip of the catheter in the superior vena cava. Lungs: Lung windows demonstrate parenchymal infiltrate with atelectasis left perihilar region involving medial mid to upper left lung and lower left lung and right perihilar/infrahilar lower right lung. In addition, small amount of scattered opacity is seen within the lungs otherwise. A mild posterior pleural effusion on the left and small or trace posterior pleural effusion on the right. No pneumothorax. Pleural spaces: See Lungs finding. Heart: Mild cardiomegaly. No pericardial effusion. Mild coronary artery calcification. Lymph nodes: Unremarkable. No enlarged lymph nodes. Vasculature: Unremarkable. No aortic aneurysm. Intraperitoneal space: Regarding visualized abdominal findings refer to CT abdomen and pelvis same date. Bones/joints: Mild spondylotic change thoracic spine. Soft tissues: Unremarkable. CT/CT chest [facility] [id number] IMPRESSION: 1. Partially consolidated pulmonary parenchymal infiltrate with atelectasis left perihilar region involving medial mid to upper left lung and lower left lung and right perihilar-infrahilar lower right lung, new from previous exam 09/21/2023. 2. Lung windows also demonstrate small amount of scattered ill-defined opacity within the lungs. 3. Mild posterior pleural effusion on the left and small/trace posterior pleural effusion on the right. 4. Mild cardiomegaly. 5. Central venous access catheter or port on the left with tip in the superior vena cava. 6. Interval new partially consolidated infiltrate/atelectasis likely represents bilateral pneumonia. There could be some component fluid overload/CHF regarding appearance of the lungs otherwise and small effusion.
--- NOTE | 2023-10-21 11:30 | PC.PHAR ---
PHARMACY TO DOSE VANCOMYCIN Vanco Initial Dosing Patient Information Sex F M/F Last Name Emily AGE 58 years First Name Genny Elliott 63 inches : 1965 ABW 77.02 kg Location: [facility] IBW 52.4 kg If loading dose given: DW 62.248 kg Loading DOSE: 1000 mg SCr 2.7 mg/dl This Dose = 16.1 mg/kg CrCl 18.6 ml/min 1st dose Cmax: 21.2 mcg/ml Vd 46.686 liters Time elapsed: 8.0 hrs Ke 0.020 hrs-1 Serum Conc. = 18.1 mcg/ml t1/2 35 hrs Hrs until 20 mcg/ml 4.0 hrs Hrs until 15 mcg/ml 18.5 hours Hrs until 10 mcg/ml 39.0 hours Dose Tau (Freq) Levels expected Standard 1250 48 Cmax 42.8 Targets 20.08 52.5 Cpeak 42.0 25 to 40 mg/kg hours Cmin 17.2 10 to 20
[2023-10-21] MEDS: piperacillin-tazobactam 3.375 GM in sodium chloride 0.9% (plus) 50 ML IV ×2 (13:01→21:07)
[2023-10-21 14:44] LABS: Basophils % 0.2 %; Eosinophils # 0.1 10^3/uL (0.0-0.8); Hematocrit 23.8 % (36-47); Lymphocytes # 0.7 10^3/uL (0.8-4.8); Lymphocytes % 5.6 %; Mean Corpuscular HGB Conc 30.7 g/dL (30-55); Mean Corpuscular Hemoglobin 28.7 pg (27-33); Mean Corpuscular Volume 93.7 fl (85-98); Mean Platelet Volume 8.8 fL (7.4-10.4); Monocytes % 7.9 %; Neutrophils % 84.6 %; Nucleated Red Blood Cells % 0 %; Platelet Count 189 10^3/cmm (157-399); Red Blood Count 2.54 10^6/uL (3.85-5.65); Red Cell Distribution Width 14.6 % (12.1-15.1); White Blood Count 12.42 10^3/uL (3.29-11.43)
[2023-10-21 15:04] LABS: INR 1.21 (0.8-1.2)
[2023-10-21 15:06] LABS: Lactic Sepsis W/Reflex 1.4 mmol/L (0.5-2.2)
[2023-10-21 15:07] LABS: Ammonia 19 umol/L (11-51)
--- NOTE | 2023-10-21 15:33 | P.PN_ITS ---
Subjective 2 Subjective: - Patient was examined this morning she is alert to person, not to place, not to time, when I ask her any questions she just repeats her name Genny Canchola, she does not follow commands afebrile, blood pressures are soft this morning ? I ordered a CT of the head, CT of the chest, x-ray shows bibasilar atelectasis, have added on vancomycin to her Zosyn, etc. spoke to be vrads, patient has a large large left perinephric hematoma compressing the left renal parenchyma, also intramural hemorrhage into the component of the massive retroperitoneal tumor stents. 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 Currently she is alert to person, to place, not to time she can follow more commands she is a bit more alert awake this afternoon -Spoke to Dr. Amor Vitals/I&O/Wt Last Vital Signs Temp 97.8 F 10/21/23 12:15 Pulse 88 10/21/23 12:15 Resp 18 10/21/23 12:15 BP 102/61 10/21/23 12:15 Pulse Ox 95 10/21/23 12:15 O2 Del Method Nasal Cannula 10/21/23 12:15 10/21/23 10/21/23 10/21/23 06:59 14:59 22:59 Intake Total 2545.29 / 2545.29 240 / 240 Output Total 300 / 300 Balance 2245.29 / 2245.29 240 / 240 Weight last 48 hrs Weight 77.02 kg Weight 76.702 kg Weight 74.843 kg Physical Exam 2 Const: COMMON NORMALS: no acute distress EXAM LIMITATIONS: altered mental status ORIENTATION/CONSCIOUSNESS: Yes awake, Yes oriented to person and Yes confused; not oriented to place and not oriented to time Resp: COMMON NORMALS: normal respiratory effort, No retractions, No use of accessory muscles and clear to auscultation bilaterally AUSCULTATION: clear to auscultation bilaterally Cardio: COMMON NORMALS: regular rate, regular rhythm, S1 normal heart sound present and S2 normal heart sound present RATE: regular rate RHYTHM: r egular rhythm HEART SOUNDS: S1 normal heart sound present and S2 normal heart sound present GI: COMMON NORMALS: Normal to inspection, nondistended, normoactive bowel sounds present and non-tender Extremity: COMMON NORMALS: no pedal edema Neuro: SENSORIUM/ORIENTATION: Yes oriented to person, No oriented to place and No oriented to time Psych: COMMON NORMALS: mental status grossly normal Urinary Catheter Management: Anaya: Cath Placed During This Visit: yes Reason for Continuing Indwelling Catheter: Accurate Measurement of Urinary Output in Critically Ill Patients Urinary Catheter Date of Insertion: 10/21/23 Data 10/21/23 14:35 10/21/23 00:00 A&P Assessment and plan (1) Acute kidney injury: (2) Overdose opiate: (3) Acute encephalopathy: (4) Pneumonia: (5) Urinary tract infection: (6) Renal hematoma: (7) Acute anemia: (8) Acute renal failure: (9) Hypercalcemia: (10) Hypercalcemia of malignancy: (11) Opioid overdose: Plan 58-year-old female presenting with increased lethargy and altered mental status brought in by family. Acute encephalopathy ? Likely multifactorial ?some component related to opiate medications, recently started on morphine, mentation improved with Narcan ? However continues to have encephalopathy ? Likely has pneumonia chest x-ray showing by basilar atelectasis infiltrate, ? Possible UTI, ? Neurochecks, aspiration precautions, ? CT of the head ordered Pneumonia -Blood cultures -CT chest -Vancomycin, Zosyn UTI -Continue Zosyn -Urine cultures Opiate overdose, ? Want to prevent opiate withdrawal, ? at bedside tells me that she uses oxycodone regularly at home but recently she has been using it maybe twice a day, send ?continue home oxycodone -Narcan as needed Left renal hematoma -CT abdomen pelvis 1. Interval development of a large left perinephric hematoma, compressing left renal parenchyma. There is also interval hemorrhage into that component of the massive retroperitoneal tumor that is immediately subjacent to the lower pole of the left kidney. 2. No hydronephrosis involving either kidney. 3. 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 - reports roughly a week ago she had severe left flank pain, back pain necessitating adding morphine to her pain regimen, no trauma, no injury is not on blood thinners, ? She did receive 5000 units of heparin for DVT prophylaxis, which have been discontinued -Hemoglobin down to 7.3 -Monitor hemodynamics closely -Transfuse if hemoglobin less than 7 Acute anemia -Likely secondary to left renal hematoma -Some component related to interval hemorrhage into massive retroperitoneal tumor -Monitor hemoglobin closely, monitor INR -Transfuse if less than 7 Acute renal failure -Likely secondary dehydration -Also component of left renal hematoma ? IV fluids, ? 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 Encephalopathy monitor Attestations 2 Medical Necessity Statement*: Patient requires hospitalization for acute encephalopathy, pneumonia, UTI, opiate overdose, left renal hematoma acute anemia acute renal failure Diagnoses Acute kidney injury N17.9 Overdose opiate T40.601A Acute encephalopathy G93.40 Pneumonia J18.9 Urinary tract infection N39.0 Renal hematoma S37.019A Acute anemia D64.9 Acute renal failure N17.9 Hypercalcemia E83.52 Hypercalcemia of malignancy E83.52 Opioid overdose T40.2X1A
[2023-10-21 15:39] LABS: Ionized Calcium 1.4 mmol/L (1.1-1.4)
[2023-10-21 18:15] LABS: Hematocrit 22.7 % (36-47)
[2023-10-21 21:34] LABS: Adenovirus Not Detected (NOT DETECT); Chlamydia Pneumoniae Not Detected (NOT DETECT); Coronavirus 229E,HKU1,NL63,OC4 Not Detected (NOT DETECT); Human Metapneumovirus Not Detected (NOT DETECT); Human Rhinovirus/Enterovirus Not Detected (NOT DETECT); Influenza A Not Detected (NOT DETECT); Influenza A H1 Not Detected (NOT DETECT); Influenza A H1-2009 Not Detected (NOT DETECT); Influenza A H3 Not Detected (NOT DETECT); Influenza B Not Detected (NOT DETECT); Mycoplasma Pneumoniae Not Detected (NOT DETECT); Parainfluenza Virus Type 1 Not Detected (NOT DETECT); Parainfluenza Virus Type 2 Not Detected (NOT DETECT); Parainfluenza Virus Type 3 Not Detected (NOT DETECT); Parainfluenza Virus Type 4 Not Detected (NOT DETECT); Respiratory Syncytial Virus A Not Detected (NOT DETECT); Respiratory Syncytial Virus B Not Detected (NOT DETECT); SARS-COV-2 Not Detected (NOT DETECT)
[2023-10-22] VITALS (20 sets, daily range): BP systolic 114–151; BP diastolic 71–87; PULSE 89–101; RESP 16–19; TEMP 36.4–36.9; O2SAT 94–96
[2023-10-22 01:34] LABS: Hematocrit 22.6 % (36-47)
[2023-10-22] MEDS: piperacillin-tazobactam 3.375 GM in sodium chloride 0.9% (plus) 50 ML IV ×2 (04:33→23:13)
[2023-10-22 05:30] LABS: Basophils % 0.3 %; Eosinophils # 0.2 10^3/uL (0.0-0.8); Eosinophils % 1.5 %; Hematocrit 22.9 % (36-47); Lymphocytes # 0.8 10^3/uL (0.8-4.8); Lymphocytes % 6.5 %; Mean Corpuscular HGB Conc 30.6 g/dL (30-55); Mean Corpuscular Hemoglobin 28.7 pg (27-33); Mean Corpuscular Volume 93.9 fl (85-98); Mean Platelet Volume 9.5 fL (7.4-10.4); Monocytes # 0.8 10^3/uL (0.2-0.9); Neutrophils # 9.78 10^3/uL (1.8-7.7); Nucleated Red Blood Cells % 0 %; Platelet Count 203 10^3/cmm (157-399); Red Blood Count 2.44 10^6/uL (3.85-5.65); Red Cell Distribution Width 14.6 % (12.1-15.1); White Blood Count 11.66 10^3/uL (3.29-11.43)
[2023-10-22 05:40] LABS: INR 1.21 (0.8-1.2)
[2023-10-22 05:54] LABS: C Reactive Protein 300.5 mg/L (0.0-4.9); Magnesium 1.4 mg/dL (1.7-2.3); Phosphorus 2.5 mg/dL (2.5-4.5)
[2023-10-22 05:55] LABS: Alanine Aminotransferase 12 U/L (0-33); Alkaline Phosphatase 86 U/L (35-105); Aspartate Amino Transferase 74 U/L (0-32); Blood Urea Nitrogen 34 mg/dL (6-20); Calcium 9.7 mg/dL (8.5-10.5); Carbon Dioxide 23 mmol/L (22-29); Chloride 104 mmol/L (98-107); Glomerular Filtration Rate 24.1 mL/min (90-130); Glucose 83 mg/dL (65-115); NT Pro B Type Natriuretic Pept 1976 pg/mL (0-125); Osmolality Calculated 289 mOsm/kg (285-295); Procalcitonin 0.96 ng/mL (0-0.5); Sodium 136 mmol/L (136-145); Total Bilirubin 0.5 mg/dL (0.15-1.2)
[2023-10-22] MEDS: oxyCODONE 5 mg IR Tab/Cap PO ×3 (06:56→18:02)
--- NOTE | 2023-10-22 08:23 | PC.NURSE ---
Pt c/o pain during rounds this Am. PRN oxy IR 5mg administered at 0656. stated during med administration he did not believe the pain medication prescribed would work. Approximately 0732 began requesting more pain medication for patient. This nurse went to pt to provide non-pharmacological methods of pain relieve such as repositioning and pt stated that would not work and refused to allow repositioning. Education provided on pharmacological and non-pharmacological pain management. Pt and verbalized understanding. Dr. Camacho notified of pt continuing c/o pain. Will continue to monitor and provide support.
[2023-10-22] MEDS: pantoprazole DR 40 mg Tablet PO (08:37)
--- NOTE | 2023-10-22 09:01 | XRR_ITS ---
PROCEDURE INFORMATION: Exam: XR Abdomen Exam date and time: 10/22/2023 9:26 AM Age: 58 years old Clinical indication: Other: No stool in ostomy; Prior surgery; Surgery date: 6+ months; Surgery type: Gb hysto colon TECHNIQUE: Imaging protocol: Radiologic exam of the abdomen. Views: Frontal supine view of the abdomen. 1 View. Total images: 2 COMPARISON: CT kidney stone [id number] 10/21/2023 8:47 AM FINDINGS: Pleural spaces: Opacity at the left lung base with blunting of the costophrenic angle corresponding to left lower lobe opacity and pleural fluid as seen on prior CT. Gastrointestinal tract: Left-sided colostomy noted. Bowel gas pattern is mildly distended but nonobstructive. Intraperitoneal space: Postsurgical changes noted in the mid lower abdomen and pelvis. Organs: Surgical clips are present in the right upper quadrant which are suggestive of prior cholecystectomy. Bones/joints: Unremarkable. Soft tissues: Soft tissue density in the left abdomen displacing bowel to the right side of the abdomen felt to correspond of large left perinephric and retroperitoneal hematoma. Other findings: Mild stool burden. XR/XR KUB portable [id number] IMPRESSION: 1. Bowel gas pattern is mildly distended but nonobstructive. 2. Mild stool burden. 3. Soft tissue density in the left abdomen displacing bowel to the right side of the abdomen felt to correspond of large left perinephric and retroperitoneal hematoma. 4. Opacity at the left lung base with blunting of the costophrenic angle corresponding to left lower lobe opacity and pleural fluid as seen on prior CT.
[2023-10-22] MEDS: HYDROmorphone 1 mg/mL INJ 1 mL IVP ×2 (10:12→21:15)
[2023-10-22] MEDS: magnesium sulfate premix 1 GM/100 ML PIGGYBACK IV (10:12)
[2023-10-22] MEDS: sodium chloride 0.9% 1,000 ML 75 ML IV (10:20)
[2023-10-22 12:50] LABS: Hematocrit 23.7 % (36-47)
[2023-10-22] MEDS: ondansetron 2 mg/ML SDV 2 mL 4 MG IVP (15:11)
--- NOTE | 2023-10-22 16:46 | CTR_ITS ---
PROCEDURE INFORMATION: Exam: CT Abdomen And Pelvis Without Contrast Exam date and time: 10/23/2023 5:19 AM Age: 58 years old Clinical indication: Abdominal pain; Prior surgery; Surgery date: 6+ months; Surgery type: Gb. Colostomy. Tubal. Patient HX: C/O left flank pain. Anemia. History of ovarian cancer with large left sided abdomeno-pelvic mass. TECHNIQUE: Imaging protocol: Computed tomography of the abdomen and pelvis without contrast. Radiation optimization: All CT scans at this facility use at least one of these dose optimization techniques: automated exposure control; mA and/or kV adjustment per patient size (includes targeted exams where dose is matched to clinical indication); or iterative reconstruction. COMPARISON: CT kidney stone [id number] 10/21/2023 8:47 AM RADIATION DOSE METRICS: Total DLP (mGy-cm): 1373.8 FINDINGS: Detailed evaluation of the abdominal and pelvic viscera is somewhat limited in the absence of intravenous contrast. Lungs: Bibasilar airspace disease and pleural effusions. Liver: Fatty infiltration of the liver. Gallbladder and bile ducts: Status post cholecystectomy. Pancreas: Pancreatic atrophy. Spleen: No splenomegaly. Adrenal glands: Unremarkable adrenals. Kidneys and ureters: Large residual left perinephric hematoma measuring 9.8 x 7.6 x 10.5 cm, which has not significantly changed in overall size. Stomach and bowel: Bowel dilatation without a focal transition zone. Left-sided ostomy. Appendix: Nonvisualization of the appendix. Intraperitoneal space: Stable peritoneal metastases. Retroperitoneal space: Additional stable 13.6 x 11.4 x 17.0 cm hemorrhage in the left posterior pararenal space, and extending into the left psoas and iliacus muscles. Thickening of the left pararenal fascia. Vasculature: Vascular calcification. No abdominal aortic aneurysm. Lymph nodes: Subcentimeter lymph nodes. Urinary bladder: Anaya catheter in intraluminal air in the decompressed bladder. Reproductive: Status post hysterectomy. Bones/joints: Degenerative change and vacuum discs. Soft tissues: Subcutaneous edema and hemorrhage, asymmetrically localized in the left lateral pelvis. When correlating with the previous study, no significant interval changes are present. CT/CT abdomen pelvis wo con [id number] IMPRESSION: 1. Large residual left perinephric hematoma measuring 9.8 x 7.6 x 10.5 cm, which has not significantly changed in overall size. 2. Additional stable 13.6 x 11.4 x 17.0 cm hemorrhage in the left posterior pararenal space, and extending into the left psoas and iliacus muscles. 3. Additional findings, as described above.
--- NOTE | 2023-10-22 16:47 | P.PN_ITS ---
Subjective 2 Subjective: Patient was seen this morning, is at bedside, at bedside tells me that patient remains in severe pain, she is getting the oxycodone but she continues to have pain, specifically left flank pain and left back pain, the area where she has a left renal hematoma, she tells me she continues to have pain but she is just received Dilaudid she is resting little bit more comfortably, he tells me that he feels that the morphine was too much it completely knocked her out, he feels that the Dilaudid tends to help more she is much more cognizant when she is on the Dilaudid, she is normotensive this morning, on room air, she is alert to person, not place, not to time she still a bit encephalopathic, we discussed her low hemoglobin, likely secondary to left renal hematoma I will give her a unit of blood unit of FFP, depending on her clinical progress if she continues to have left flank pain left back pain I might we reordered a CT scan to evaluate for further bleeding, she also has a history of sacral decubitus ulcer, which should be and the nursing staff were able to rotate patient and observe it looks clean and dry, nothing significant during my examination her at bedside tells me that it has healed over, she has not had a bowel movement, will start her on her lactulose he tells me that when he put her on her lactulose she had regular bowel movements, I discussed her CT chest findings, concerning for consolidation with infiltrate left perihilar region, medial mid to upper left lung, lower left lung, right perihilar and infrahilar lower right lung,, concerning for possible pneumonia, she is on broad-spectrum antibiotic therapy, discussed continue monitoring her closely patient bedside hopes that we can get her better so that she can possibly undergo experimental treatment Vitals/I&O/Wt Last Vital Signs Temp 97.6 F 10/22/23 12:00 Pulse 93 10/22/23 12:00 Resp 16 10/22/23 13:57 BP 121/72 10/22/23 12:00 Pulse Ox 94 10/22/23 11:04 O2 Del Method Nasal Cannula 10/22/23 11:04 O2 Flow Rate 4 10/22/23 08:00 10/22/23 10/22/23 10/22/23 06:59 14:59 22:59 Intake Total 50 / 1725 1620 / 1620 Output Total 200 / 900 Balance -150 / 825 1620 / 1620 Weight last 48 hrs Weight 77.02 kg Weight 77.02 kg Weight 76.702 kg Weight 74.843 kg Physical Exam 2 Const: COMMON NORMALS: no acute distress and patient oriented x3 Resp: COMMON NORMALS: normal respiratory effort, No retractions, No use of accessory muscles and clear to auscultation bilaterally AUSCULTATION: clear to auscultation bilaterally Cardio: COMMON NORMALS: regular rate, regular rhythm, S1 normal heart sound present and S2 normal heart sound present RATE: regular rate RHYTHM: r egular rhythm HEART SOUNDS: S1 normal heart sound present and S2 normal heart sound present GI: COMMON NORMALS: Normal to inspection, nondistended, normoactive bowel sounds present and non-tender Extremity: COMMON NORMALS: no pedal edema Neuro: COMMON NORMALS: patient oriented x3 Psych: COMMON NORMALS: mental status grossly normal Urinary Catheter Management: Anaya: Cath Placed During This Visit: yes Reason for Continuing Indwelling Catheter: Accurate Measurement of Urinary Output in Critically Ill Patients Urinary Catheter Date of Insertion: 10/21/23 Data 10/22/23 12:39 10/22/23 04:54 A&P Assessment and plan (1) Acute kidney injury: (2) Overdose opiate: (3) Acute encephalopathy: (4) Pneumonia: (5) Urinary tract infection: (6) Renal hematoma: (7) Acute anemia: (8) Acute renal failure: (9) Hypercalcemia: (10) Hypercalcemia of malignancy: (11) Opioid overdose: Plan 58-year-old female presenting with increased lethargy and altered mental status brought in by family. Acute encephalopathy ? Likely multifactorial ?some component related to opiate medications, recently started on morphine, mentation improved with Narcan ? However continues to have encephalopathy ? Likely has pneumonia given CT of the chest ? Possible UTI, ? Neurochecks, aspiration precautions, ? CT of the head ordered Pneumonia -CT of the chest showing evidence of bilateral pneumonia -Blood cultures -Vancomycin, Zosyn UTI -Continue Zosyn -Urine cultures Opiate overdose, ? Want to prevent opiate withdrawal, ? at bedside tells me that she uses oxycodone regularly at home but recently she has been using it maybe twice a day, send ?continue home oxycodone -Continues to have breakthrough pain add Dilaudid -Narcan as needed Left renal hematoma -CT abdomen pelvis 1. Interval development of a large left perinephric hematoma, compressing left renal parenchyma. There is also interval hemorrhage into that component of the massive retroperitoneal tumor that is immediately subjacent to the lower pole of the left kidney. 2. No hydronephrosis involving either kidney. 3. 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 - reports roughly a week ago she had severe left flank pain, back pain necessitating adding morphine to her pain regimen, no trauma, no injury is not on blood thinners, ? She did receive 5000 units of heparin for DVT prophylaxis, which have been discontinued on Monday morning -Hemoglobin down to 7.0 -Transfuse 1 unit PRBC, 1 unit FFP -If she continues to have flank pain in the afternoon, will repeat CT scan -Monitor hemodynamics closely -Transfuse if hemoglobin less than 7 Acute anemia -Likely secondary to left renal hematoma -Some component related to interval hemorrhage into massive retroperitoneal tumor -Monitor hemoglobin closely, monitor INR -Transfuse if less than 7 Acute renal failure -Likely secondary dehydration -Also component of left renal hematoma ? IV fluids, ? 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 Encephalopathy monitor Attestations 2 Medical Necessity Statement*: Patient requires hospitalization for pneumonia, UTI, persistent pain, left renal hematoma, acute anemia, will transfuse PRBC, FFP, continue IV antibiotics, fluid therapy, continue to monitor closely Diagnoses Acute kidney injury N17.9 Overdose opiate T40.601A Acute encephalopathy G93.40 Pneumonia J18.9 Urinary tract infection N39.0 Renal hematoma S37.019A Acute anemia D64.9 Acute renal failure N17.9 Hypercalcemia E83.52 Hypercalcemia of malignancy E83.52 Opioid overdose T40.2X1A
[2023-10-22] MEDS: sodium chloride 0.9% (100 ml) 100 ML 9999.9 ML (17:24)
[2023-10-22] MEDS: lactulose oral liq 20 gm/30 mL UDC PO ×2 (18:01→21:17)
[2023-10-22] MEDS: sucralfate 1 gm Tablet PO (18:02)
[2023-10-22] MEDS: pantoprazole 40 mg SDV IVP (20:51)
[2023-10-23] VITALS (18 sets, daily range): BP systolic 124–152; BP diastolic 74–79; PULSE 87–97; RESP 16–19; TEMP 36.3–37.2; O2SAT 92–96; BMI 29.9
[2023-10-23] MEDS: oxyCODONE 5 mg IR Tab/Cap PO ×4 (01:30→21:45)
[2023-10-23] MEDS: lactulose oral liq 20 gm/30 mL UDC PO (01:33)
[2023-10-23 03:48] LABS: Basophils % 0.4 %; Eosinophils # 0.2 10^3/uL (0.0-0.8); Eosinophils % 1.4 %; Hematocrit 26.9 % (36-47); Lymphocytes # 0.6 10^3/uL (0.8-4.8); Lymphocytes % 5.5 %; Mean Corpuscular HGB Conc 30.9 g/dL (30-55); Mean Corpuscular Hemoglobin 28.2 pg (27-33); Mean Corpuscular Volume 91.5 fl (85-98); Mean Platelet Volume 9.4 fL (7.4-10.4); Monocytes # 0.8 10^3/uL (0.2-0.9); Monocytes % 7.5 %; Neutrophils # 9.34 10^3/uL (1.8-7.7); Neutrophils % 84.6 %; Nucleated Red Blood Cells % 0 %; Platelet Count 268 10^3/cmm (157-399); Red Blood Count 2.94 10^6/uL (3.85-5.65); Red Cell Distribution Width 15.9 % (12.1-15.1); White Blood Count 11.04 10^3/uL (3.29-11.43)
[2023-10-23] MEDS: vancomycin 1,250 MG/250 ML PIGGYBACK 250 MG IV (04:01)
[2023-10-23 04:05] LABS: INR 1.18 (0.8-1.2)
[2023-10-23] MEDS: HYDROmorphone 1 mg/mL INJ 1 mL IVP ×3 (04:13→18:43)
[2023-10-23 04:17] LABS: Procalcitonin 0.62 ng/mL (0-0.5)
[2023-10-23 04:18] LABS: Lactate (Lactic Acid level) 1.1 mmol/L (0.5-2.2)
[2023-10-23 04:24] LABS: Anion Gap 15.8 (5-19); Blood Urea Nitrogen 29 mg/dL (6-20); Calcium 10.5 mg/dL (8.5-10.5); Carbon Dioxide 23 mmol/L (22-29); Chloride 103 mmol/L (98-107); Glomerular Filtration Rate 35.5 mL/min (90-130); Glucose 96 mg/dL (65-115); NT Pro B Type Natriuretic Pept 3526 pg/mL (0-125); Osmolality Calculated 292 mOsm/kg (285-295); Potassium 3.8 mmol/L (3.5-5.1); Sodium 138 mmol/L (136-145)
[2023-10-23 04:29] LABS: C Reactive Protein 253.5 mg/L (0.0-4.9); Magnesium 1.5 mg/dL (1.7-2.3); Phosphorus 2.3 mg/dL (2.5-4.5)
[2023-10-23] MEDS: piperacillin-tazobactam 3.375 GM in sodium chloride 0.9% (plus) 50 ML IV ×3 (06:45→23:01)
[2023-10-23] MEDS: sucralfate 1 gm Tablet PO ×2 (06:45→17:18)
[2023-10-23] MEDS: pantoprazole 40 mg SDV IVP ×2 (08:22→20:45)
[2023-10-23] MEDS: sodium chloride 0.9% 1,000 ML 75 ML IV (08:23)
--- NOTE | 2023-10-23 13:01 | P.PN_ITS ---
Subjective 2 Subjective: She is doing slightly better. Bothered by some pain in her lower back. Vitals/I&O/Wt Last Vital Signs Temp 97.3 F L 10/23/23 12:25 Pulse 93 10/23/23 12:25 Resp 19 H 10/23/23 12:25 BP 137/78 10/23/23 12:25 Pulse Ox 94 10/23/23 12:25 O2 Del Method Nasal Cannula 10/23/23 12:25 O2 Flow Rate 3.5 10/23/23 04:00 10/22/23 10/23/23 10/23/23 22:59 06:59 14:59 Intake Total 1507.5 / 3127.5 697.5 / 3825.0 410 / 410 Output Total 775 / 775 700 / 1475 Balance 732.5 / 2352.5 -2.5 / 2350.0 410 / 410 Weight last 48 hrs Weight 76.748 kg Weight 77.02 kg Physical Exam 2 Narrative: Accompanied by family. Const: COMMON NORMALS: patient oriented x3 and alert GENERAL APPEARANCE: c ooperative ORIENTATION/CONSCIOUSNESS: Yes awake HENMT: COMMON NORMALS: oropharynx normal Neck/C-Spine: COMMON NORMALS: no JVD Resp: COMMON NORMALS: normal respiratory effort and clear to auscultation bilaterally AUSCULTATION: clear to auscultation bilaterally and rales on the left in the lower lung linda Cardio: COMMON NORMALS: no JVD, regular rhythm, S1 normal heart sound present, S2 normal heart sound present and No murmurs present (Cardio) RHYTHM: regular rhythm HEART SOUNDS: S1 normal heart sound present and S2 normal heart sound present GI: COMMON NORMALS: Normal to inspection, nondistended, normoactive bowel sounds present, Soft to palpation and non-tender PALPATION: Yes Soft to palpation Extremity: COMMON NORMALS: no joint enlargement and no pedal edema Neuro: COMMON NORMALS: patient oriented x3 and moves all extremities S ENSORIUM/ORIENTATION: Yes alert Skin: COMMON NORMALS: no rashes or lesions noted GENERAL SKIN EXAM: no rashes or lesions noted Urinary Catheter Management: Anaya: Cath Placed During This Visit: yes Reason for Continuing Indwelling Catheter: Required Immobilization for Trauma or Surgery or Anesthesia Urinary Catheter Date of Insertion: 10/21/23 Data 10/23/23 02:58 10/23/23 02:58 Micro: Microbiology 10/21/23 01:15 Blood Culture - Preliminary Blood 10/21/23 01:09 Blood Culture - Preliminary Blood A&P Assessment and plan (1) Acute kidney injury: (2) Overdose opiate: (3) Acute encephalopathy: (4) Pneumonia: (5) Urinary tract infection: (6) Renal hematoma: (7) Acute anemia: (8) Acute renal failure: (9) Hypercalcemia: (10) Hypercalcemia of malignancy: (11) Opioid overdose: Plan 58-year-old female presenting with increased lethargy and altered mental status brought in by family. Acute encephalopathy: resolved. Reviewed CT of the head. From history obtained from her family mental status is doing better. Continue treatment of pain, cautiously as pain medications contributing to encephalopathy. Continue treatment of pneumonia, possible UTI. ? Likely multifactorial ?some component related to opiate medications, recently started on morphine, mentation improved with Narcan ? However continues to have encephalopathy ? Likely has pneumonia given CT of the chest ? Possible UTI, ? Neurochecks, aspiration precautions, Pneumonia: With hypoxia, requiring 3 and half liters of oxygen by nasal cannula. Stop IV fluid. -CT of the chest showing evidence of bilateral pneumonia -Reviewed Blood cultures -Continue Vancomycin, Zosyn. Monitor renal function due to risk of renal dysfunction with antibiotic combo. UTI -Continue Zosyn -Urine cultures Opiate overdose, ? Want to prevent opiate withdrawal, ? at bedside tells me that she uses oxycodone regularly at home but recently she has been using it maybe twice a day, send ?continue home oxycodone -Continues to have breakthrough pain add Dilaudid -Narcan as needed Left renal hematoma: So far without signs of continued active bleeding. Did respond well to RBC transfusion on review of hemoglobin, hemoglobin up to 8.3. Discussed with her oncologist, discussed with her and family, not on anticoagulation. Pending initiation of treatment being obtained by oncology. Discussed in case of signs of persistent bleeding to consider transfer for consideration of embolization if it may be an option. Left perinephric findings as per discussion with oncology also discussed with radiology likely not all hematoma, has previously had tumor there. -CT abdomen pelvis 1. Interval development of a large left perinephric hematoma, compressing left renal parenchyma. There is also interval hemorrhage into that component of the massive retroperitoneal tumor that is immediately subjacent to the lower pole of the left kidney. 2. No hydronephrosis involving either kidney. 3. 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 - reports roughly a week ago she had severe left flank pain, back pain necessitating adding morphine to her pain regimen, no trauma, no injury is not on blood thinners, ? She did receive 5000 units of heparin for DVT prophylaxis, which have been discontinued on Monday morning -Hemoglobin down to 7.0 -Transfuse 1 unit PRBC, 1 unit FFP -If she continues to have flank pain in the afternoon, will repeat CT scan -Monitor hemodynamics closely -Transfuse if hemoglobin less than 7 Acute anemia -Likely secondary to left renal hematoma -Some component related to interval hemorrhage into massive retroperitoneal tumor -Monitor hemoglobin closely, monitor INR -Transfuse if less than 7 Acute renal failure: Reviewed BUN, creatinine. With improvement. -Likely secondary dehydration -Also component of left renal hematoma ? IV fluids, ? Monitor kidney function History of hypercalcemia of malignancy: Reviewed calcium,WNL. 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 Overall prognosis is not good. Discussed with oncology, investigational treatment is being obtained for her to try, to be initiated once available either tomorrow or day after. Continue cautious treatment of persistent pain. Monitor for any worsening encephalopathy with IV Dilaudid. SCD Stoma is producing output. Anaya catheter Closely monitor urine output and mental status. Encephalopathy monitor. Attestations 2 Medical Necessity Statement*: Continue assessment management of underlying causes of multifactorial encephalopathy, left renal hematoma, acute anemia, initiation of treatment for metastatic ovarian adenocarcinoma with extensive peritoneal carcinomatosis. Diagnoses Acute kidney injury N17.9 Overdose opiate T40.601A Acute encephalopathy G93.40 Pneumonia J18.9 Urinary tract infection N39.0 Renal hematoma S37.019A Acute anemia D64.9 Acute renal failure N17.9 Hypercalcemia E83.52 Hypercalcemia of malignancy E83.52 Opioid overdose T40.2X1A
[2023-10-23] MEDS: magnesium sulfate premix 2 GM/50 ML PIGGYBACK IV (13:14)
[2023-10-24] VITALS (17 sets, daily range): BP systolic 145–177; BP diastolic 30–99; PULSE 80–100; RESP 14–30; TEMP 36.3–37.3; O2SAT 89–95
--- NOTE | 2023-10-24 01:41 | PC.NURSE ---
Received report from ADRIEN Almeida.
[2023-10-24] MEDS: HYDROmorphone 1 mg/mL INJ 1 mL IVP ×3 (03:01→18:15)
[2023-10-24 05:14] LABS: Basophils # 0.1 10^3/uL (0.0-0.1); Basophils % 0.6 %; Eosinophils # 0.3 10^3/uL (0.0-0.8); Eosinophils % 3.1 %; Hematocrit 26.9 % (36-47); Lymphocytes # 0.6 10^3/uL (0.8-4.8); Lymphocytes % 7.2 %; Mean Corpuscular HGB Conc 31.2 g/dL (30-55); Mean Corpuscular Volume 89.7 fl (85-98); Mean Platelet Volume 9.2 fL (7.4-10.4); Monocytes # 0.8 10^3/uL (0.2-0.9); Monocytes % 9.1 %; Neutrophils # 6.94 10^3/uL (1.8-7.7); Neutrophils % 79.2 %; Nucleated Red Blood Cells % 0 %; Platelet Count 271 10^3/cmm (157-399); Red Cell Distribution Width 15.1 % (12.1-15.1); White Blood Count 8.76 10^3/uL (3.29-11.43)
[2023-10-24 05:27] LABS: INR 1.15 (0.8-1.2)
[2023-10-24 05:33] LABS: C Reactive Protein 158.7 mg/L (0.0-4.9); Lactate (Lactic Acid level) 1.2 mmol/L (0.5-2.2); Magnesium 1.5 mg/dL (1.7-2.3); Phosphorus 1.8 mg/dL (2.5-4.5)
[2023-10-24 05:43] LABS: NT Pro B Type Natriuretic Pept 4402 pg/mL (0-125); Procalcitonin 0.38 ng/mL (0-0.5)
[2023-10-24 05:54] LABS: Anion Gap 13.6 (5-19); Blood Urea Nitrogen 20 mg/dL (6-20); Calcium 10.2 mg/dL (8.5-10.5); Carbon Dioxide 24 mmol/L (22-29); Chloride 104 mmol/L (98-107); Glomerular Filtration Rate 41.9 mL/min (90-130); Glucose 84 mg/dL (65-115); Osmolality Calculated 288 mOsm/kg (285-295); Potassium 3.6 mmol/L (3.5-5.1); Sodium 138 mmol/L (136-145)
[2023-10-24] MEDS: sucralfate 1 gm Tablet PO ×2 (06:04→17:32)
[2023-10-24] MEDS: oxyCODONE 5 mg IR Tab/Cap PO ×3 (06:04→21:22)
[2023-10-24] MEDS: piperacillin-tazobactam 3.375 GM in sodium chloride 0.9% (plus) 50 ML IV ×3 (06:04→23:11)
[2023-10-24] MEDS: magnesium sulfate premix 2 GM/50 ML PIGGYBACK IV (09:57)
[2023-10-24] MEDS: pantoprazole 40 mg SDV IVP ×2 (09:58→20:30)
[2023-10-24] MEDS: phosphorus 250 mg Tablet PO ×2 (09:59→17:32)
[2023-10-24] MEDS: vancomycin 1,250 MG/250 ML PIGGYBACK 250 MG IV (14:25)
[2023-10-24] MEDS: amitriptyline 25 mg Tablet PO (19:59)
--- NOTE | 2023-10-24 21:38 | ECG_ITS ---
[facility] Test Date: 2023-10-24 Pat Name: Genny Diaz Department: Room: 270 Gender: Female Manager Diversity: : 1965 Requested By: Don Camacho Order Number: [id number] Monica MD: David Allen M.D. Measurements Intervals [place] Rate: 91 P: 25 DE: 185 QRS: -8 QRSD: 91 T: 30 QT: 345 QTc: 426 Interpretive Statements SINUS RHYTHM POSSIBLE ANTERIOR MYOCARDIAL INFARCTION , OF INDETERMINATE AGE [30 ms Q WAVE IN V3/V4, OR R < 0.2 mV IN V4] Compared to ECG 10/21/2023 01:52:44 No significant changes Electronically Signed On 10-25-2023 14:18:41 TUBING MACHINE OPERATOR by David Allen M.D. [id number]
--- NOTE | 2023-10-24 22:13 | P.PN_ITS ---
Subjective 2 Subjective: Denies additional changes. Pain control is improving. Vitals/I&O/Wt Last Vital Signs Temp 97.6 F 10/24/23 19:36 Pulse 92 10/24/23 19:36 Resp 18 10/24/23 21:22 BP 153/30 10/24/23 19:36 Pulse Ox 95 10/24/23 21:22 O2 Del Method Nasal Cannula 10/23/23 16:44 O2 Flow Rate 3.5 10/23/23 04:00 10/24/23 10/24/23 10/24/23 06:59 14:59 22:59 Intake Total 170 / 1313.75 340 / 340 300 / 640 Output Total 600 / 1400 Balance -430 / -86.25 340 / 340 300 / 640 Weight last 48 hrs Weight 76.748 kg Weight 76.748 kg Physical Exam 2 Narrative: Accompanied by her . Const: COMMON NORMALS: patient oriented x3 and alert GENERAL APPEARANCE: c ooperative ORIENTATION/CONSCIOUSNESS: Yes awake HENMT: COMMON NORMALS: oropharynx normal Neck/C-Spine: COMMON NORMALS: no JVD Resp: COMMON NORMALS: normal respiratory effort and clear to auscultation bilaterally AUSCULTATION: clear to auscultation bilaterally and rales on the left in the lower lung linda Cardio: COMMON NORMALS: no JVD, regular rhythm, S1 normal heart sound present, S2 normal heart sound present and No murmurs present (Cardio) RHYTHM: regular rhythm HEART SOUNDS: S1 normal heart sound present and S2 normal heart sound present GI: COMMON NORMALS: Normal to inspection, nondistended, normoactive bowel sounds present, Soft to palpation and non-tender PALPATION: Yes Soft to palpation Extremity: COMMON NORMALS: no joint enlargement and no pedal edema Neuro: COMMON NORMALS: patient oriented x3 and moves all extremities S ENSORIUM/ORIENTATION: Yes alert Skin: COMMON NORMALS: no rashes or lesions noted GENERAL SKIN EXAM: no rashes or lesions noted Urinary Catheter Management: Anaya: Cath Placed During This Visit: yes, but has since been removed by the nurse Reason for Continuing Indwelling Catheter: Decision to DC Catheter Urinary Catheter Date of Insertion: 10/21/23 Date Urinary Catheter Removed: 10/24/23 Time Urinary Catheter Discontinued: 12:00 Data 10/24/23 04:41 10/24/23 04:41 A&P Assessment and plan (1) Acute kidney injury: (2) Overdose opiate: (3) Acute encephalopathy: (4) Pneumonia: (5) Urinary tract infection: (6) Renal hematoma: (7) Acute anemia: (8) Acute renal failure: (9) Hypercalcemia: (10) Hypercalcemia of malignancy: (11) Opioid overdose: Plan 58-year-old female presenting with increased lethargy and altered mental status brought in by family. Left renal hematoma: Reviewed vitals, CBC. Hemoglobin so far unchanged at 8.4. Will reassess given she has not been on any anticoagulants or antiplatelets. Discussed in case of signs of persistent bleeding to consider transfer for consideration of embolization if it may be an option. Left perinephric findings as per discussion with oncology also discussed with radiology likely not all hematoma, has previously had tumor there. Hold fluoxetine. Discussed with case management director. Acute encephalopathy: resolved. Reviewed CT of the head. From history obtained from her family mental status is doing better. Continue treatment of pain, cautiously as pain medications contributing to encephalopathy. Continue treatment of pneumonia, possible UTI. ? Likely multifactorial ?some component related to opiate medications, recently started on morphine, mentation improved with Narcan ? However continues to have encephalopathy ? Likely has pneumonia given CT of the chest ? Possible UTI, ? Neurochecks, aspiration precautions, Hypomagnesemia: Reviewed magnesium, replacement requested Hypophosphatemia: Reviewed phosphorus, replacement requested Hypokalemia: Reviewed potassium, on the low side 3.6, replacement requested, recheck levels. Pneumonia: Continue treatment with antibiotics. Currently unchanged, requiring 3 and half liters of oxygen by nasal cannula. -CT of the chest showing evidence of bilateral pneumonia -Reviewed Blood cultures -Continue Vancomycin, Zosyn. Monitor renal function due to risk of renal dysfunction with antibiotic combo. UTI -Continue Zosyn -Urine cultures Opiate overdose, ? Want to prevent opiate withdrawal, ? at bedside tells me that she uses oxycodone regularly at home but recently she has been using it maybe twice a day, send ?continue home oxycodone -Continues to have breakthrough pain add Dilaudid -Narcan as needed -CT abdomen pelvis 1. Interval development of a large left perinephric hematoma, compressing left renal parenchyma. There is also interval hemorrhage into that component of the massive retroperitoneal tumor that is immediately subjacent to the lower pole of the left kidney. 2. No hydronephrosis involving either kidney. 3. 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 - reports roughly a week ago she had severe left flank pain, back pain necessitating adding morphine to her pain regimen, no trauma, no injury is not on blood thinners, ? She did receive 5000 units of heparin for DVT prophylaxis, which have been discontinued on Monday morning -Hemoglobin down to 7.0 -Transfuse 1 unit PRBC, 1 unit FFP -If she continues to have flank pain in the afternoon, will repeat CT scan -Monitor hemodynamics closely -Transfuse if hemoglobin less than 7 Acute anemia -Likely secondary to left renal hematoma as above -Some component related to interval hemorrhage into massive retroperitoneal tumor -Monitor hemoglobin closely, monitor INR -Transfuse if less than 7 Acute renal failure: Reviewed BUN, creatinine. With improvement. -Likely secondary dehydration -Also component of left renal hematoma ? IV fluids, ? Monitor kidney function History of hypercalcemia of malignancy: Reviewed calcium,WNL. 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 Overall prognosis is not good. Discussed with oncology, investigational treatment is being obtained for her to try, to be initiated once available either tomorrow or day after. Continue cautious treatment of persistent pain. Monitor for any worsening encephalopathy with IV Dilaudid. SCD Stoma is producing output. Anaya catheter Closely monitor urine output and mental status. Encephalopathy monitor. Attestations 2 Medical Necessity Statement*: Continue treatment of pneumonia, reassess blood counts with acute anemia with perinephric hematoma in a lady with metastatic ovarian adenocarcinoma with retroperitoneal metastatic disease and bleed. and High MDM includes amount and/or complexity of data reviewed/ordered [ resulted lab(s)/test(s), ordered lab(s)/test(s) and other healthcare professional discussion] as documented Diagnoses Acute kidney injury N17.9 Overdose opiate T40.601A Acute encephalopathy G93.40 Pneumonia J18.9 Urinary tract infection N39.0 Renal hematoma S37.019A Acute anemia D64.9 Acute renal failure N17.9 Hypercalcemia E83.52 Hypercalcemia of malignancy E83.52 Opioid overdose T40.2X1A
[2023-10-24] MEDS: amlodipine 5 mg Tablet 10 MG PO (22:26)
[2023-10-24 22:41] LABS: Troponin(5th) Baseline 27 ng/L (0-10)
[2023-10-24] MEDS: acetaminophen 325 mg Tablet 650 MG PO (23:08)
[2023-10-25] VITALS (8 sets, daily range): BP systolic 145–149; BP diastolic 76–82; PULSE 78–102; RESP 17–20; TEMP 36.4–36.8; O2SAT 90–96; BMI 29.9
[2023-10-25] MEDS: HYDROmorphone 1 mg/mL INJ 1 mL IVP ×2 (00:27→06:38)
[2023-10-25 00:59] LABS: Troponin 5 2HR 28.08 ng/L (0-10); Troponin 5 2HR Delta 1.08 ABS# (0-10)
[2023-10-25] MEDS: oxyCODONE 5 mg IR Tab/Cap PO ×2 (03:50→14:50)
[2023-10-25 05:09] LABS: Basophils # 0.1 10^3/uL (0.0-0.1); Basophils % 0.6 %; Eosinophils # 0.3 10^3/uL (0.0-0.8); Eosinophils % 3.4 %; Hematocrit 26.6 % (36-47); Lymphocytes # 0.8 10^3/uL (0.8-4.8); Lymphocytes % 9.9 %; Mean Corpuscular HGB Conc 31.2 g/dL (30-55); Mean Corpuscular Hemoglobin 27.9 pg (27-33); Mean Corpuscular Volume 89.6 fl (85-98); Mean Platelet Volume 9.4 fL (7.4-10.4); Monocytes # 0.7 10^3/uL (0.2-0.9); Monocytes % 9.4 %; Neutrophils # 6.02 10^3/uL (1.8-7.7); Neutrophils % 76.2 %; Nucleated Red Blood Cells % 0 %; Platelet Count 297 10^3/cmm (157-399); Red Blood Count 2.97 10^6/uL (3.85-5.65); Red Cell Distribution Width 14.6 % (12.1-15.1)
[2023-10-25 05:26] LABS: Magnesium 1.4 mg/dL (1.7-2.3); Phosphorus 1.9 mg/dL (2.5-4.5)
[2023-10-25 05:27] LABS: Troponin 5 6HR 24.73 ng/L (0-10)
[2023-10-25 05:29] LABS: Troponin 5 6HR Delta -2.27 ng/L (0-12)
[2023-10-25 05:47] LABS: Anion Gap 16.3 (5-19); Blood Urea Nitrogen 18 mg/dL (6-20); Carbon Dioxide 24 mmol/L (22-29); Chloride 103 mmol/L (98-107); Glomerular Filtration Rate 56.7 mL/min (90-130); Glucose 82 mg/dL (65-115); Osmolality Calculated 291 mOsm/kg (285-295); Potassium 3.3 mmol/L (3.5-5.1); Sodium 140 mmol/L (136-145)
[2023-10-25] MEDS: vancomycin 1,250 MG/250 ML PIGGYBACK 250 MG IV (06:31)
[2023-10-25] MEDS: sucralfate 1 gm Tablet PO (06:31)
[2023-10-25] MEDS: piperacillin-tazobactam 3.375 GM in sodium chloride 0.9% (plus) 50 ML IV (06:32)
[2023-10-25] MEDS: phosphorus 250 mg Tablet PO (08:02)
[2023-10-25] MEDS: pantoprazole 40 mg SDV IVP (10:11)
[2023-10-25] MEDS: magnesium sulfate premix 4 GM/100 ML PREMIX IV (10:53)
[2023-10-25] MEDS: potassium phosphate (mEq K) 40 MEQ in sodium chloride 0.9% (100 ml) 100 ML 27.27 MEQ IV (11:08)
--- NOTE | 2023-10-25 13:05 | P.DS_ITS ---
Discharge Providers Date of Admission: 10/21/23 03:14 Date of Discharge: October 25, 2023 Attending Provider at Admission: Lacey Garnica MD Attending Provider at Discharge: Govind Quintana Primary Care Provider: Deepa Farris MD Diagnoses at Discharge Discharge Diagnosis (1) Acute kidney injury: Status: Acute (2) Overdose opiate: Status: Acute (3) Acute encephalopathy: Status: Acute (4) Pneumonia: Status: Acute (5) Urinary tract infection: Status: Acute (6) Renal hematoma: Status: Acute (7) Acute anemia: Status: Acute (8) Acute renal failure: Status: Acute (9) Hypercalcemia: Status: Acute (10) Hypercalcemia of malignancy: Status: Acute (11) Opioid overdose: Status: Acute Reason for Visit Reason for Visit: cancer pt. lethargic possible too much morphine Hospital Course Hospital Course Pleasant 58-year-old lady with metastatic ovarian adenocarcinoma, with extensive peritoneal carcinomatosis, recently severe hypercalcemia of malignancy, obstipation, with chronic pain managed by opiates, presented with altered mental status, component of morphine overdose which responded to Narcan, however some persistence of encephalopathy suspected also due to pneumonia which was found on presentation. Urinalysis equivocal for UTI, stop and symptomatic, has been covered empirically with antibiotics for pneumonia and possible UTI. Oxygenation, mental status gradually improved. She remains alert. Pain control obtained with cultures return to opioid medications. She is prescribed Narcan at discharge. Will complete antibiotic course for pneumonia. Calcium has been good and renal function continues to improve. With again presentation, creatinine up to 2.6 he is for now asked to hold off on resuming lisinopril. Please reassess kidney function. CT scan of the abdomen presentation showed also new left renal, and bleeding from retroperitoneal mass. CT RBC transfusion, FFP. Responded well and so far maintaining hemoglobin without signs of additional bleeding. Avoid fluoxetineTo reduce risk of rebleeding given retroperitoneal carcinomatosis. Continue amitriptyline nightly. Consideration was given to additional experimental treatment by oncology, medication was approved, but unfortunately may not be effective for her and based on further information. Oncology to consider further options with her on discussion prior to her discharge and she has to follow-up in office, but overall prognosis unfortunately is not good. At risk of additional complications due to metastatic cancer. Elevated risk of readmission. Physical Exam Narrative: Accompanied by her . Pleasant, conversant. No new complaints this morning. Const: COMMON NORMALS: patient oriented x3 and alert GENERAL APPEARANCE: cooperative ORIENTATION/CONSCIOUSNESS: Yes awake HENMT: COMMON NORMALS: oropharynx normal Neck/C-Spine: COMMON NORMALS: no JVD Resp: COMMON NORMALS: normal respiratory effort and clear to auscultation bilaterally AUSCULTATION: clear to auscultation bilaterally and rales on the left in the lower lung linda Cardio: COMMON NORMALS: no JVD, regular rhythm, S1 normal heart sound present, S2 normal heart sound present and No murmurs present (Cardio) RHYTHM: regular rhythm HEART SOUNDS: S1 normal heart sound present and S2 normal heart sound present GI: COMMON NORMALS: Normal to inspection, nondistended, normoactive bowel sounds present, Soft to palpation and non-tender PALPATION: Yes Soft to palpation Extremity: COMMON NORMALS: no joint enlargement and no pedal edema Neuro: COMMON NORMALS: patient oriented x3 and moves all extremities SENSORIUM/ORIENTATION: Yes alert Skin: COMMON NORMALS: no rashes or lesions noted GENERAL SKIN EXAM: no rashes or lesions noted Urinary Catheter Management: Anaya: Cath Placed During This Visit: yes, but has since been removed by the nurse Reason for Continuing Indwelling Catheter: Decision to DC Catheter Urinary Catheter Date of Insertion: 10/21/23 Date Urinary Catheter Removed: 10/24/23 Time Urinary Catheter Discontinued: 12:00 Discharge Data Studies Completed and Pending Completed Studies During Hospitalization Category Date Time Status CT abdomen pelvis wo con [id number] Stat Cat Scan 10/22/23 16:[address] abdomen renal stone [CT kidney stone [id number]] Routine Cat Scan 10/21/23 07:[address] chest wo con [id number] Routine Cat Scan 10/21/23 11:[address] head wo con* [id number] Routine Cat Scan 10/21/23 11:18 Completed XR KUB portable [id number] Stat Exams 10/22/23 09:01 Completed XR chest 1V [id number] Stat Exams 10/20/23 23:48 Completed CV carotid duplex BI* [id number] Routine Ultrasound 10/21/23 11:18 Completed CV. echo complete* [id number] Routine Ultrasound 10/21/23 11:18 Completed Pending at discharge Category Date Time Status Blood Cultures ([facility]) Routine Lab 10/21/23 01:09 Results Blood Cultures ([facility]) Routine Lab 10/21/23 01:15 Results Magnesium AM LABS Lab 10/26/23 04:00 Ordered Magnesium AM LABS Lab 10/27/23 04:00 Ordered Phosphorus AM LABS Lab 10/26/23 04:00 Ordered Phosphorus AM LABS Lab 10/27/23 04:00 Ordered Vancomycin Trough Timed Lab 10/26/23 00:30 Ordered Radiology Impressions Chest X-Ray 10/20/23 23:48 IMPRESSION: 1. Mild cardiomegaly. 2. Bibasilar atelectasis versus infiltrate. 3. Left-sided Port-A-Cath. Carotid Doppler Study 10/21/23 11:18 IMPRESSION: No carotid arterial stenosis. REFERENCES: SRU CRITERIA. The degree of internal carotid artery stenosis is based on criteria defined by the Society of Radiologists in Ultrasound (SRU). Normal is no stenosis. Mild is less than 50% stenosis. Moderate is 50-69% stenosis. Severe is greater than 69% stenosis to near occlusion. Near occlusion is a markedly narrowed lumen. Total occlusion is no detectable patent lumen. Chest CT 10/21/23 11:18 IMPRESSION: 1. Partially consolidated pulmonary parenchymal infiltrate with atelectasis left perihilar region involving medial mid to upper left lung and lower left lung and right perihilar-infrahilar lower right lung, new from previous exam 09/21/2023. 2. Lung windows also demonstrate small amount of scattered ill-defined opacity within the lungs. 3. Mild posterior pleural effusion on the left and small/trace posterior pleural effusion on the right. 4. Mild cardiomegaly. 5. Central venous access catheter or port on the left with tip in the superior vena cava. 6. Interval new partially consolidated infiltrate/atelectasis likely represents bilateral pneumonia. There could be some component fluid overload/CHF regarding appearance of the lungs otherwise and small effusion. Head CT 10/21/23 11:18 IMPRESSION: No acute intracranial abnormality. KUB X-Ray 10/22/23 09:01 IMPRESSION: 1. Bowel gas pattern is mildly distended but nonobstructive. 2. Mild stool burden. 3. Soft tissue density in the left abdomen displacing bowel to the right side of the abdomen felt to correspond of large left perinephric and retroperitoneal hematoma. 4. Opacity at the left lung base with blunting of the costophrenic angle corresponding to left lower lobe opacity and pleural fluid as seen on prior CT. Abdomen/Pelvis CT 10/22/23 16:46 IMPRESSION: 1. Large residual left perinephric hematoma measuring 9.8 x 7.6 x 10.5 cm, which has not significantly changed in overall size. 2. Additional stable 13.6 x 11.4 x 17.0 cm hemorrhage in the left posterior pararenal space, and extending into the left psoas and iliacus muscles. 3. Additional findings, as described above. Laboratory Results WBC 7.90 10^3/uL (3.29-11.43) 10/25/23 04:25 RBC 2.97 10^6/uL (3.85-5.65) L 10/25/23 04:25 Hgb 8.30 g/dL (11.27-16.99) L 10/25/23 04:25 Hct 26.6 % (36-47) L 10/25/23 04:25 MCV 89.6 fl (85-98) 10/25/23 04:25 MCH 27.9 pg (27-33) 10/25/23 04:25 MCHC 31.2 g/dL (30-55) 10/25/23 04:25 RDW 14.6 % (12.1-15.1) 10/25/23 04:25 Plt Count 297 10^3/cmm (157-399) 10/25/23 04:25 MPV 9.4 fL (7.4-10.4) 10/25/23 04:25 Neut % (Auto) 76.2 % 10/25/23 04:25 Lymph % (Auto) 9.9 % 10/25/23 04:25 [place] % (Auto) 9.4 % 10/25/23 04:25 Eos % (Auto) 3.4 % 10/25/23 04:25 Baso % (Auto) 0.6 % 10/25/23 04:25 Neut # (Auto) 6.02 10^3/uL (1.8-7.7) 10/25/23 04:25 Lymph # (Auto) 0.8 10^3/uL (0.8-4.8) 10/25/23 04:25 [place] # (Auto) 0.7 10^3/uL (0.2-0.9) 10/25/23 04:25 Eos # (Auto) 0.3 10^3/uL (0.0-0.8) 10/25/23 04:25 Baso # (Auto) 0.1 10^3/uL (0.0-0.1) 10/25/23 04:25 Nucleated RBC % (auto) 0 % 10/25/23 04:25 Nucleated RBCs # 0.0 /100WBC 10/25/23 04:25 ESR 32 mm/hr (0-15) H 10/21/23 00:00 PT 15.10 SECONDS (12.1-14.9) H 10/24/23 04:41 INR 1.15 (0.8-1.2) 10/24/23 04:41 Specimen Type Venous 10/20/23 00:01 Sample Site Not specified 10/20/23 00:01 James Test N/a 10/20/23 00:01 VBG pH 7.50 (7.32-7.42) H 10/20/23 00:01 VBG pCO2 32.7 mmHg (41-51) L 10/20/23 00:01 VBG pO2 157.0 mmHg (25-40) H 10/20/23 00:01 VBG HCO3 25.4 mmol/L (24-28) 10/20/23 00:01 VBG Base Excess 2.3 mmol/L (-3.0-3.0) 10/20/23 00:01 VBG Hematocrit 28.9 % (37-47) L 10/20/23 00:01 O2 Delivery Device Room air 10/20/23 00:01 FiO2 21.0 % 10/20/23 00:01 Rotary Envelope Machine Operator ID Plasa 10/20/23 00:01 Sodium 140 mmol/L (136-145) 10/25/23 04:25 Potassium 3.3 mmol/L (3.5-5.1) L 10/25/23 04:25 Chloride 103 mmol/L (98-107) 10/25/23 04:25 Carbon Dioxide 24 mmol/L (22-29) 10/25/23 04:25 Anion Gap 16.3 (5-19) 10/25/23 04:25 BUN 18 mg/dL (6-20) 10/25/23 04:25 Creatinine 1.0 mg/dL (0.5-0.9) H 10/25/23 04:25 GFR Calculation 56.7 mL/min (90-130) L 10/25/23 04:25 Glucose 82 mg/dL (65-115) 10/25/23 04:25 POC Glucose 107 mg/dL (70-110) 10/21/23 06:49 Calculated Osmolality 291 mOsm/kg (285-295) 10/25/23 04:25 Lactic Acid 1.4 mmol/L (0.5-2.2) 10/21/23 14:35 Lactate 1.2 mmol/L (0.5-2.2) 10/24/23 04:41 Uric Acid 8.0 mg/dL (2.4-5.7) H 10/21/23 14:35 Calcium 10.0 mg/dL (8.5-10.5) 10/25/23 04:25 Ionized Calcium [place] 1.4 mmol/L (1.1-1.4) 10/21/23 11:16 Phosphorus 1.9 mg/dL (2.5-4.5) L 10/25/23 04:25 Magnesium 1.4 mg/dL (1.7-2.3) L 10/25/23 04:25 Total Bilirubin 0.5 mg/dL (0.15-1.2) 10/22/23 04:54 AST 74 U/L (0-32) H 10/22/23 04:54 ALT 12 U/L (0-33) 10/22/23 04:54 Alkaline Phosphatase 86 U/L (35-105) 10/22/23 04:54 Ammonia 19 umol/L (11-51) 10/21/23 14:35 Troponin T Baseline 27 ng/L (0-10) H 10/24/23 22:19 Troponin T 120 Minute 28.08 ng/L (0-10) H 10/25/23 00:34 Delta Troponin T 1.08 ABS# (0-10) 10/25/23 00:34 Troponin T Hi Sens 6Hr 24.73 ng/L (0-10) H 10/25/23 04:25 Troponin T Hi Sens 6Hr Delta -2.27 ng/L (0-12) L 10/25/23 04:25 C-Reactive Protein 158.7 mg/L (0.0-4.9) H 10/24/23 04:41 NT-Pro-B Natriuret Pep 4402 pg/mL (0-125) H 10/24/23 04:41 Total Protein 6.0 g/dL (6.6-8.7) L 10/22/23 04:54 Albumin 3.0 g/dL (3.5-5.2) L 10/22/23 04:54 Globulin 3.0 g/dL (1.3-4.6) 10/22/23 04:54 Procalcitonin 0.38 ng/mL (0-0.5) 10/24/23 04:41 Urine Color Yellow (Yellow) 10/21/23 01:25 Urine Appearance Hazy (CLEAR) A 10/21/23 01:25 Urine pH 5 (5-7) 10/21/23 01:25 Ur Specific [place] 1.025 (1.005-1.030) 10/21/23 01:25 Urine Protein 1+ (Negative) H 10/21/23 01:25 Urine Glucose (UA) Norm (Normal) 10/21/23 01:25 Urine Ketones Negative (Negative) 10/21/23 01:25 Urine Blood Neg (Negative) 10/21/23 01:25 Urine Nitrate Negative (Negative) 10/21/23 01:25 Urine Bilirubin Neg (Negative) 10/21/23 01:25 Urine Urobilinogen Norm mg/dL (Negative) 10/21/23 01:25 Ur Leukocyte Esterase Negative (Negative) 10/21/23 01:25 Urine RBC 0-4 /hpf (0-2) H 10/21/23 01:25 Urine WBC 5-10 /hpf (0-5) H 10/21/23 01:25 Ur Squamous Epith Cells 0-4 /hpf (0-5) H 10/21/23 01:25 Amorphous Sediment 2+ /hpf 10/21/23 01:25 Urine Bacteria 2+ /hpf (NONE) H 10/21/23 01:25 Hyaline Casts 5-10 /lpf H 10/21/23 01:25 Fine Granular Casts 0-4 /lpf H 10/21/23 01:25 Coarse Granular Casts 5-10 /lpf H 10/21/23 01:25 Urine Mucus 1+ /hpf 10/21/23 01:25 Urine Opiates Screen Positive ng/mL (Negative) H 10/21/23 01:25 Ur Barbiturates Screen Negative ng/mL (Negative) 10/21/23 01:25 Ur Phencyclidine Scrn Negative ng/mL (Negative) 10/21/23 01:25 Ur Amphetamines Screen Negative ng/mL (Negative) 10/21/23 01:25 U Benzodiazepines Scrn Positive ng/mL (Negative) H 10/21/23 01:25 Urine Cocaine Screen Negative ng/mL (Negative) 10/21/23 01:25 U Marijuana (THC) Screen Negative ng/mL (Negative) 10/21/23 01:25 Ethyl Alcohol < 10 mg/dL (0-10) 10/21/23 00:00 Adenovirus (PCR) Not detected (NOT DETECT) 10/21/23 18:24 C. pneumoniae DNA (PCR) Not detected (NOT DETECT) 10/21/23 18:24 Coronavirus 229E (PCR) Not detected (NOT DETECT) 10/21/23 18:24 Human Metapneumovir PCR Not detected (NOT DETECT) 10/21/23 18:24 Influenza A (H1) PCR Not detected (NOT DETECT) 10/21/23 18:24 Influ A (H1/09) PCR Not detected (NOT DETECT) 10/21/23 18:24 Influenza A (H3) PCR Not detected (NOT DETECT) 10/21/23 18:24 Influenza Type A Ag negative (Negative) 10/21/23 00:00 Influenza Type A (PCR) Not detected (NOT DETECT) 10/21/23 18:24 Influenza Type B Ag negative (Negative) 10/21/23 00:00 Influenza Type B (PCR) Not detected (NOT DETECT) 10/21/23 18:24 M. pneumoniae (PCR) Not detected (NOT DETECT) 10/21/23 18:24 Parainfluenza 1 (PCR) Not detected (NOT DETECT) 10/21/23 18:24 Parainfluenza 2 (PCR) Not detected (NOT DETECT) 10/21/23 18:24 Parainfluenza 3 (PCR) Not detected (NOT DETECT) 10/21/23 18:24 Parainfluenza 4 (PCR) Not detected (NOT DETECT) 10/21/23 18:24 RSV Type A (PCR) Not detected (NOT DETECT) 10/21/23 18:24 RSV Type B (PCR) Not detected (NOT DETECT) 10/21/23 18:24 Entero/Rhino (PCR) Not detected (NOT DETECT) 10/21/23 18:24 SARS-CoV-2 (PCR) Not detected (NOT DETECT) 10/21/23 18:24 SARS-CoV-2 Ag (Rapid) negative (Negative) 10/21/23 00:00 Blood Type O Positive 10/22/23 09:45 Rho(D) Type Rh positive 10/22/23 09:45 Antibody Screen Negative 10/22/23 09:45 Crossmatch See Detail 10/22/23 09:45 Vitals Last Vital Signs Temp 98.3 F 10/25/23 08:00 Pulse 78 10/25/23 08:00 Resp 18 10/25/23 08:00 BP 148/82 10/25/23 08:00 Pulse Ox 90 10/25/23 08:00 O2 Del Method Room Air 10/25/23 08:00 O2 Flow Rate 2 10/24/23 22:19 Discharge Plan Discharge Patient Disposition: Home Condition: Stable Prescriptions: New amitriptyline 25 mg Tablet 25 mg PO BEDTIME Qty: 30 0RF naloxone [Narcan] 4 mg/actuation spray,non-aerosol 4 mg intranasal Q2M PRN (Reason: opioid overdose) Qty: 2 0RF Rx Instructions: spray 1 dose into ONE nostril; alternate nostrils w each dose until help arrives magnesium L-threonate 48 mg magnesium (667 mg) capsule 48 mg PO DAILY Qty: 90 0RF levofloxacin 750 mg tablet 750 mg PO DAILY 4 Days Qty: 4 0RF Continued amlodipine 10 mg tablet 10 mg PO DAILY (DME) Wheeled seated walker See Rx Instructions .Route .MEDSUPPLY Qty: 1 0RF Rx Instructions: As directed furosemide 40 mg tablet 40 mg PO DAILY PRN (Reason: lower extrmemity edema) Qty: 30 3RF morphine 15 mg tablet 15 mg PO Q6H PRN (Reason: pain) 30 Days Qty: 120 0RF pantoprazole 40 mg tablet,delayed release (DR/EC) 40 mg PO DAILY Qty: 30 1RF potassium chloride 10 mEq tablet extended release 10 meq PO BID PRN (Reason: on diuretic) Qty: 60 3RF lactulose 20 gram/30 mL solution 20 g PO .COMPLEX MDD 180 ml Qty: 1200 0RF Rx Instructions: 30 mL Q2H PRN until bowel movement, repeat every 72 hours as needed spironolactone 25 mg Tablet 25 mg PO DAILY Qty: 90 0RF oxycodone 5 mg capsule 5 mg PO Q4H PRN (Reason: Pain (Scale Score 7-10)) Discontinued fluoxetine 40 mg capsule 40 mg PO DAILY morphine 30 mg tablet extended release 30 mg PO Q12H 30 Days Qty: 60 0RF lisinopril 20 mg tablet 20 mg PO DAILY Qty: 90 0RF Discharge Orders: Discharge Order (Routine); Ordered 10/25/23 Ordered By: Govind Quintana Other Ambulatory Orders: DME: Shiv (Order) Location: None Selected Ordered By: Govind Quintana Referrals: Deepa Farris MD [Primary Care Provider] - 10/31/23 1:30 pm Discharge Diet: Cardiac Discharge Activity: Increase activity as tolerated Patient Instructions: Naloxone (Into the nose), Potassium Content of Foods List (GEN), Hypomagnesemia (GEN), Altered Mental Status (ED), Opioid Safety Activity Restrictions/Additional Instructions: Have your primary doctor and/your cancer doctor reassess your blood counts to reassess anemia with blood collection around the left kidney. Hold fluoxetine so as to avoid it contributing to any recurrence of bleeding. In case of any worsening or new concerning symptoms, return to the hospital. Follow-up with your primary doctor for reassessment after pneumonia. Complete antibiotic course. Continue supplementation of magnesium, potassium. Include dairy in your diet to help supplement phosphorus. Have your primary doctor follow-up your chemistry including kidney function to reassess for continued improvement in kidney function, as well as reassess potassium, magnesium, phosphorus levels. In case of respiratory depression or unresponsiveness possibly related to opioid medications you are also given a prescription for naloxone, please instruct your family on the availability and use of this medication. Discharge Attestations Time Spent in Discharge Care*: greater than 30 min Quality Metrics Clinical Quality Measures [ No reported AMI, CVA or VTE this stay] Coding Level of Care Code 08699 Total time (in minutes) for Discharge: 50 Diagnoses Acute kidney injury N17.9 Overdose opiate T40.601A Acute encephalopathy G93.40 Pneumonia J18.9 Urinary tract infection N39.0 Renal hematoma S37.019A Acute anemia D64.9 Acute renal failure N17.9 Hypercalcemia E83.52 Hypercalcemia of malignancy E83.52 Opioid overdose T40.2X1A
[2023-10-25] MEDS: potassium chloride ER 20 mEq Tablet PO (14:50)
== END 2023-10-25 15:34 | disposition home or self-care (01) | DRG 91 ==
LOC: ER 10-21 00:02 → MEDSURG 10-21 03:15
PROVIDERS: Family Medicine; Admitting Provider Student in an Organized Health Care Education/Training Program; Emergency Provider Physician Assistant; PCP Internal Medicine; Visit Provider Internal Medicine
DX: G92.8 Other toxic encephalopathy (principal); J18.9 Pneumonia, unspecified organism; C56.9 Malignant neoplasm of unspecified ovary; C78.6 Secondary malignant neoplasm of retroperitoneum and peritoneum; C79.51 Secondary malignant neoplasm of bone; N17.9 Acute kidney failure, unspecified; N39.0 Urinary tract infection, site not specified; T40.2X5A Adverse effect of other opioids, initial encounter; Y92.009 Unspecified place in unspecified non-institutional (private) residence as the place of occurrence of the external cause; E83.42 Hypomagnesemia; E83.39 Other disorders of phosphorus metabolism; E87.6 Hypokalemia; I10 Essential (primary) hypertension; F32.A Depression, unspecified; F41.9 Anxiety disorder, unspecified; Z95.828 Presence of other vascular implants and grafts; E86.0 Dehydration; D64.9 Anemia, unspecified; E83.52 Hypercalcemia; N28.89 Other specified disorders of kidney and ureter; T40.2X1A Poisoning by other opioids, accidental (unintentional), initial encounter
CPT/HCPCS: 36415; 36416; 36430; 36600; 51702; 70450; 71045; 71250; 74018; 74176; 80048; 80053; 80306; 80307; 81001; 82140; 82330; 82803; 82962; 83605; 83735; 83880; 84100; 84145; 84484; 84550; 85014; 85018; 85025; 85610; 85651; 86140; 86850; 86900; 86902; 86920; 86927; 87040; 87426; 87486; 87581; 87633; 87804; 88104; 93005; 93306; 93880; 96365; 96372; 96374; 96375; 96376; 97116; 97161; 97165; 97530; 97535; 99285; C9113; J1170; J1642; J1644; J2270; J2310; J2405; J2543; J3370; J3475; J7030; J7040; J7050; P9016; P9017

== ENCOUNTER 2023-11-08 11:45 | Oncology outpatient (recurring) (ONCR) | payer MEDICAID, SELFPAY ==
[2023-10-16 11:12] LABS: Basophils # 0.1 10^3/uL (0.0-0.1); Basophils % 0.8 %; Eosinophils # 0.3 10^3/uL (0.0-0.8); Hematocrit 34.4 % (36-47); Lymphocytes # 1.2 10^3/uL (0.8-4.8); Lymphocytes % 13.6 %; Mean Corpuscular HGB Conc 31.7 g/dL (30-55); Mean Corpuscular Hemoglobin 28.9 pg (27-33); Mean Corpuscular Volume 91.2 fl (85-98); Mean Platelet Volume 9.2 fL (7.4-10.4); Monocytes # 0.7 10^3/uL (0.2-0.9); Monocytes % 8.4 %; Neutrophils # 6.34 10^3/uL (1.8-7.7); Neutrophils % 73.5 %; Nucleated Red Blood Cells % 0 %; Platelet Count 301 10^3/cmm (157-399); Red Blood Count 3.77 10^6/uL (3.85-5.65); Red Cell Distribution Width 13.6 % (12.1-15.1); White Blood Count 8.62 10^3/uL (3.29-11.43)
[2023-10-16 11:41] LABS: Alanine Aminotransferase 22 U/L (0-33); Albumin Level 3.9 g/dL (3.5-5.2); Alkaline Phosphatase 83 U/L (35-105); Anion Gap 16.2 (5-19); Aspartate Amino Transferase 78 U/L (0-32); Blood Urea Nitrogen 18 mg/dL (6-20); CA 125 19.1 U/mL (0-35); Calcium 11.8 mg/dL (8.5-10.5); Carbon Dioxide 24 mmol/L (22-29); Chloride 99 mmol/L (98-107); Globulin 3.2 g/dL (1.3-4.6); Glucose 89 mg/dL (65-115); Osmolality Calculated 283 mOsm/kg (285-295); Potassium 3.2 mmol/L (3.5-5.1); Sodium 136 mmol/L (136-145); Total Bilirubin 0.4 mg/dL (0.15-1.2); Total Protein 7.1 g/dL (6.6-8.7)
[2023-10-19 14:53] VITALS: BP 142/84; PULSE 88; RESP 18; TEMP 36.3; O2SAT 92
[2023-10-19 15:02] VITALS: RESP 18
[2023-10-19] MEDS: morphine 4 mg/mL SDV 1 mL 2 MG IVP ×2 (15:02→15:38)
[2023-10-19] MEDS: sodium chloride 0.9% 500 ML 75 ML IV (15:37)
[2023-10-19 15:38] VITALS: RESP 18
[2023-10-19] MEDS: ondansetron 2 mg/ML SDV 2 mL 8 MG IVP (15:46)
[2023-10-19 16:29] VITALS: BP 135/85; PULSE 84; RESP 17; TEMP 36.6
[2023-10-23 13:42] LABS: HER2 FISH/IHC (Non-Gastric) See Report
--- NOTE | 2023-10-26 12:00 | N.ONRAD NP_ITS ---
Radiation Oncology New Patient Visit Patient: Genny Diaz MR#: [id number] : 1965 Age: 58 Sex: Female Dictated by: Dr. Bren Thrasher Date of Service: 10/26/2023 Referring Physician(s) : Dr. 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 Radiotherapy to date: Summary : No prior radiation therapy. Chief Complaint / History of Present Illness: Patient is a 58-year-old lady who originally presented with severe flank pain. This was back in October 2021. She was found to have a mass that extended from the renal pole into the pelvis. She also had extensive peritoneal carcinomatosis. 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 She began initial treatment with Carbo/Taxol and then underwent debulking with colostomy. In May 2022 she started additional chemotherapy and immunotherapy. This was changed in the last 6 months to additional immunotherapy. Her CT scan in September had shown that she had massive progression of disease. She ended up in the hospital earlier this week with somnolence and shallow breathing. She had her pain medicine adjusted while she was in the hospital and returns today to discuss radiation to get her pain under control. Current Medications: Amitriptyline HCl, cARBOplatin, dexamethasone, dexamethasone, dexamethasone Sodium Phosphate, diphenhydrAMINE HCl, duragesic-25, emend, famotidine in NaCl, fentaNYL, fLUoxetine HCl, furosemide, lORazepam, oxyCODONE HCl, oxyCODONE HCl, oxyCODONE-Acetaminophen, pACLitaxel, palonosetron HCl, prochlorperazine Maleate, sodium Chloride, traMADol HCl. Allergies: No Known Allergies Medical History: Depression, hypertension, migraine headaches, psoriasis. No history of collagen vascular disease. No previous radiation therapy. Surgical History: Cholecystectomy in 2011 and tubal ligation on 06/06/1996. Family History: Father has experienced hypertension. Mother has experienced Cancer. Father with an aortic aneurysm at around age 80. Her mother at age 88. At the time they suspected a [employer] cancer. She had previous treatment for colon cancer and superficial bladder cancer. A brother of a head/neck cancer at age 67. Social History: Last screened on 01/19/2022 - Never smoked. Last screened on 01/19/2022 - Never drank. Current Complaints / Review of Systems: . Vital Signs: Performed on 10/26/2023 11:28 AM BMI - 28.095 kg/m2 (high), Height - 63 in, Weight - 158.6 lbs, Temperature - 97.8 f, Pulse - 101 /min (high), Respiration - 16 /min, O2 Sat - 98 %, Pain - 6, Fatigue - 9 and BP - 127/ 84 mm(hg). Physical Exam: General: Patient is in moderate distress. She is accompanied by her . HEENT: Normocephalic atraumatic. Pupils are equal, sclera clear, extraocular muscles intact. She has a permanent frown secondary to her current pain which is a level 6 out of 10. Pulmonary: Respiratory rate is regular nonlabored Cardiovascular: Regular rate and rhythm Abdomen: She has firmness throughout the left side of her abdomen. Colostomy is in place and working. Musculoskeletal: She does not have any palpable tenderness in the lumbar spine Neurological: Alert and orient x 3. Her gait is impaired as her left leg has become numb clear down past her knee. Speech is intact Psychological: Affect is appropriate for current situation Skin: Warm and dry Performance Status: ECOG 2 Pathology: Primary, c56.9 - malignant neoplasm of unspecified ovary, Diagnosed 11/22/2021 (active) and Primary, c78.6 - secondary malignant neoplasm of retroperitoneum and peritoneum, Diagnosed 11/22/2021 (active). 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 We talked about her current pain management. He is trying to adjust her pain medicine without making her somnolent. I reviewed with them the role of the radiation. We discussed how we would target the area that need to be treated and try and minimize toxicity to adjacent structures. Reviewed the simulation process. We discussed the daily treatment regiment. I reviewed the risks and side effects both acute and long-term. At this point she is anxious to get started to try and get her pain under control. She seems to be very sensitive to the long-acting morphine and at this point would like to just continue using the short acting morphine. I encouraged her to take this on a regular basis rather than waiting till her pain got unbearable. She will undergo simulation today and will begin her treatments as soon as possible next week. I discussed with her that the more that we can give the mass the greater the shrinkage and the longer the shrinkage will last. We talked about a course of 2 to 4 weeks depending on normal structures. She verbalized understanding and she is agreed to proceed. Signed by: 10/26/2023 11:59:47 AM <<Signature on File>> Time spent with patient:45 CPT Code: CPT Code:
--- NOTE | 2023-10-31 15:49 | ONCRAD TMN_ITS ---
Radiation Oncology Weekly Treatment Management Patient: Emily Khan MR#: [id number] : 1965> Attending Physician: Dr. Bren Thrasher Date of Service: 10/31/2023 Referring Physician(s) : Dr. 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 ID: [id number], Energy: 15X, Dose/Fx (cGy): 300, #Fx: , Dose Correction (cGy): 0, Total Dose (cGy): 300, Start Date: 10/31/2023, Elapsed Days: 0 Reason for visit: The patient is being seen today as part of their regularly scheduled weekly on treatment visits to assess for acute toxicities from radiotherapy. Review of Systems: Patient is actually doing a little bit better with her pain management. They have switched to the 15 mg of short acting morphine which he her thinks he is giving her about every 4-5 hours. Vital Signs: Physical Exam: No changes on exam Imaging: Radiation therapy imaging related to accurate target localization (i.e. KV, MV and CBCT) was reviewed. Appropriate changes, if any, were made to ensure treatment accuracy. Plan: Today was her first treatment. She did have quite a bit of pain while she was laying on the table. Tomorrow they will be giving her pain medicine before she comes. I reminded her that she should use nausea medicine if she becomes sick to her stomach and if she has any problems with diarrhea to use Imodium. She actually has been constipated for couple of days now and will be using the laxative when she gets home. Signed by: Dr. Bren Thrasher 10/31/2023 3:48:36 PM
[2023-10-31 16:05] VITALS: BP 132/73; PULSE 102; RESP 16; TEMP 36.9; O2SAT 98
[2023-10-31 16:08] LABS: Basophils % 0.3 %; Eosinophils # 0.2 10^3/uL (0.0-0.8); Eosinophils % 1.6 %; Hematocrit 31.7 % (36-47); Lymphocytes # 0.8 10^3/uL (0.8-4.8); Lymphocytes % 6.8 %; Mean Corpuscular HGB Conc 31.2 g/dL (30-55); Mean Corpuscular Hemoglobin 27.7 pg (27-33); Mean Corpuscular Volume 88.5 fl (85-98); Mean Platelet Volume 9.3 fL (7.4-10.4); Monocytes # 0.7 10^3/uL (0.2-0.9); Monocytes % 5.6 %; Neutrophils # 10.29 10^3/uL (1.8-7.7); Neutrophils % 84.9 %; Nucleated Red Blood Cells % 0 %; Platelet Count 405 10^3/cmm (157-399); Red Blood Count 3.58 10^6/uL (3.85-5.65); Red Cell Distribution Width 14.5 % (12.1-15.1); White Blood Count 12.13 10^3/uL (3.29-11.43)
[2023-10-31 16:29] LABS: Alanine Aminotransferase 12 U/L (0-33); Albumin Level 3.6 g/dL (3.5-5.2); Alkaline Phosphatase 108 U/L (35-105); Anion Gap 16.3 (5-19); Aspartate Amino Transferase 54 U/L (0-32); Blood Urea Nitrogen 19 mg/dL (6-20); Calcium 10.5 mg/dL (8.5-10.5); Carbon Dioxide 24 mmol/L (22-29); Chloride 98 mmol/L (98-107); Globulin 3.7 g/dL (1.3-4.6); Glomerular Filtration Rate 35.5 mL/min (90-130); Glucose 81 mg/dL (65-115); Osmolality Calculated 279 mOsm/kg (285-295); Potassium 4.3 mmol/L (3.5-5.1); Sodium 134 mmol/L (136-145); Total Bilirubin 0.6 mg/dL (0.15-1.2); Total Protein 7.3 g/dL (6.6-8.7)
[2023-11-06] MEDS: sodium chloride 0.9% 1,000 ML 999 ML IV (12:01)
[2023-11-06] MEDS: ondansetron 2 mg/ML SDV 2 mL 8 MG IVP (13:09)
--- NOTE | 2023-11-07 11:45 | ONCRAD TMN_ITS ---
Radiation Oncology Weekly Treatment Management Patient: Genny Diaz MR#: [id number] : 1965> Attending Physician: John Jo Date of Service: 11/07/2023 Referring Physician(s) : Dr. 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 ID: [id number], Energy: 15X, Dose/Fx (cGy): 300, #Fx: 6 / 15, Dose Correction (cGy): 0, Total Dose (cGy): 1,800, Start Date: 10/31/2023, Elapsed Days: 7 Reason for visit: The patient is being seen today as part of their regularly scheduled weekly on treatment visits to assess for acute toxicities from radiotherapy. Review of Systems: Patient received a liter of saline yesterday and reports that her symptoms of mild nausea have improved. She continues on stool softeners and laxatives and reports a bowel movement yesterday. She continues on her pain medication every 6 hours and reports good pain control. Vital Signs: Performed on 11/07/2023 11:18 AM BMI - 25.863 kg/m2 (high), Height - 63 in, Weight - 146 lbs, Temperature - 97.1 f, Pulse - 91 /min, Respiration - 16 /min, O2 Sat - 96 %, Pain - 6, Fatigue - 4 and BP - 112/ 72 mm(hg). Physical Exam: Alert and oriented female appearing mildly fatigued. Patient ambulatory by wheelchair. Patient's is present during the examination. Imaging: Radiation therapy imaging related to accurate target localization (i.e. KV, MV and CBCT) was reviewed. Appropriate changes, if any, were made to ensure treatment accuracy. Plan: Patient is tolerating her radiation therapy well and reports slight improvement in the numbness of her left lower extremity. Plan to continue prescribed treatment. We will also continue to monitor patient to determine if she needs additional IV hydration this week. Signed by: John Jo 11/07/2023 11:44:48 AM
[2023-11-08] MEDS: sodium chloride 0.9% 1,000 ML 999 ML IV (12:02)
[2023-11-08 16:56] VITALS: BP 113/71; PULSE 87; RESP 16; TEMP 36.4; O2SAT 92
--- NOTE | 2023-11-13 14:11 | ONCRAD TMN_ITS ---
Radiation Oncology Weekly Treatment Management Patient: Emily Khan MR#: [id number] : 1965> Attending Physician: Dr. Bren Thrasher Date of Service: 11/13/2023 Fractions: 10-15 to the abdomen and pelvis Referring Physician(s) : Dr. 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 ID: [id number], Energy: 15X, Dose/Fx (cGy): 300, #Fx: 15, Dose Correction (cGy): 0, Total Dose (cGy): 3,000, Start Date: 10/31/2023, Elapsed Days: 13 Reason for visit: The patient is being seen today as part of their regularly scheduled weekly on treatment visits to assess for acute toxicities from radiotherapy. Review of Systems: Over the weekend she had to take more of the immediate release morphine as she began to have a progression of pain in the left leg. It had previously been and now she has pain in that leg. She is down another 4 pounds from last week. We talked today about adding gabapentin to her regimen to see if this will help with the pain in her leg. She also have fluids today and get a CBC checked. Vital Signs: Performed on 11/13/2023 11:25 AM BMI - 25.331 kg/m2 (high), Height - 63 in, Weight - 143 lbs, Temperature - 98.2 f, Pulse - 113 /min (high), Respiration - 16 /min, O2 Sat - 96 %, Pain - 10, Fatigue - 5 and BP - 108/ 68 mm(hg). Physical Exam: Patient is pale. She is in obvious pain sitting in her wheelchair. She is companied by her . Imaging: Radiation therapy imaging related to accurate target localization (i.e. KV, MV and CBCT) was reviewed. Appropriate changes, if any, were made to ensure treatment accuracy. Plan: She will have a CBC drawn today. She will receive IV fluids at her request. I will go ahead and call in gabapentin for her to try to see if this will help with her pain. Signed by: Dr. Bren Thrasher 11/13/2023 2:09:08 PM
--- NOTE | 2024-03-06 09:58 | ONCRAD EPV_ITS ---
Radiation Oncology Established Patient Visit Patient: Genny Diaz [id number] : 1965 Age: 58 Sex: Female Dictated by: Dr. Bren Thrasher Date of Service: 03/06/2024 Referring Physician(s) : Dr. 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 She says over the last 2 to 3 weeks the mass seems like its gotten bigger. She can feel it on the left side just above her pelvis. She is also having increasing pain in the low back and down the right and left leg. Her most recent CT scan showed that she still had a mass in the left iliopsoas that had significant necrotic areas in the superior portion and it was smaller than the previous imaging had shown. She also had improved mesenteric adenopathy but now had extensive hepatic metastasis. She also had several small pulmonary nodules with the largest being only 8 mm on the right. There is a small left pleural effusion. There was developing mediastinal and hilar adenopathy with the largest node measuring 13 mm. She is here today to discuss treatment to the pelvic mass to get additional pain control. She currently has a pain level level 1. She says when he gets its worst it is an 8-9. She is currently using actually ibuprofen for her pain management. She says 1 or 2 of the oxycodone do not seem to do anything. Apparently she has not really taken the oxycodone on a regular basis to see if it would work long-term. PMH: This is a 58-year-old woman with advanced ovarian carcinoma, presenting with CT evidence of peritoneal carcinomatosis. She had presented to Dr. Pro with abdominal swelling and postprandial abdominal discomfort. An abdominal ultrasound on 10/25/2021 showed hepatomegaly with coarsened echogenicity. A nodular area of differential echogenicity was noted in the left hepatic lobe measuring 4.3 x 5.4 cm. There was no hydronephrosis noted. There was mild ascites estimated at 1300 mL. Pelvic ultrasound showed a cystic lesion in the right ovary measuring 5.0 x 4.0 x 3.7 cm and containing internal debris. The left ovary was not well visualized. A small amount of free fluid was noted in the cul-de-sac. Further evaluation with CT of the abdomen/pelvis on 10/26/2021 showed extensive bulky peritoneal carcinomatosis compatible with metastatic disease involving the ventral abdominal peritoneum and pelvis. A prominent metastatic implant was noted in the left upper quadrant measuring 4.7 x 3.1 cm with an additional notable metastatic implant in the left lower quadrant measuring 3.8 x 4.7 cm. A cystic lesion in the midline pelvis measuring 4.2 x 4.6 cm with eccentric mural nodularity was felt to likely represent the a cystic ovarian lesion seen on the ultrasound. There was diffuse bulky rectal wall thickening possibly representing primary neoplasm versus metastatic disease. There was mild to moderate abdominal ascites and there was a small left pleural effusion. There was diffuse fatty infiltration of the liver with no evidence for focal liver lesions. She underwent CT directed biopsy of the omental mass on 11/04/2021. Pathology ultimately came back showing metastatic adenocarcinoma consistent with ovarian primary, most suggestive of serous cell carcinoma. The tumor was strongly positive for CA-125 and for Sammy-EP4. ER was positive at 100%, but PA was negative and the tumor was also negative for overexpression of HER-2/rolando. However, in the meantime, the day following the biopsy she was admitted to the hospital with nausea/vomiting in association with worsening abdominal pain. She had clinical evidence of septic shock, and her blood cultures subsequently grew Clostridium perfringens. She also was found to have COVID-19 virus infection. She had a complicated clinical course which included acute renal failure and acute respiratory failure, but with antibiotic therapy and supportive treatment measures she did show gradual improvement, including complete recovery of her renal function. During the hospitalization she underwent paracentesis on several occasions, and her peritoneal fluid cytology was positive for metastatic adenocarcinoma consistent with ovarian primary. Her initial CT scans also had shown left pleural effusion with left lower lobe atelectasis. She did not have any pleural fluid sampling. I had seen her for consultation as an inpatient, and I had conferred with one of the [employer] oncologists in [place]. The recommendation was to proceed with neoadjuvant chemotherapy and to reassess for debulking surgery after 3 cycles. On 11/17/2021 she began cycle 1 of carboplatin/paclitaxel administered through a PICC line in the right arm. She tolerated that treatment without acute toxicity. She was able to be discharged home on 11/19/2021. Her other medical illnesses include hypertension, migraine headaches, psoriasis, and depression. Prior surgeries have been limited to cholecystectomy and tubal ligation. She is a non-smoker. Family history is significant in that her mother had been treated for colon cancer, but she apparently had a suspected [employer] malignancy at the time of her at age 87. During subsequent outpatient follow-up she did begin to show some clinical improvement, though she continued to have marginal performance status and she did require PRBC transfusion on 11/22/2021 and again on 11/26/2021. She was able to proceed with cycle 2 of carboplatin/paclitaxel on 12/08/2021. Restaging CT of the abdomen/pelvis on 12/27/2021 showed decrease in the ascites, but there was no significant improvement noted in the omental and mesenteric implants. The majority were noted to have increased in size. There were multiple loculated peripherally enhancing fluid collections within the mesentery and pelvis, felt to be somewhat suspicious for peritonitis versus peritoneal carcinomatosis. Also noted was a small subhepatic fluid collection with peripheral enhancement. New tiny mesenteric implants were noted along the medial right surface of the liver and a new nodule in the right adrenal gland was felt to be suspicious for metastatic disease. There was just a small layering left pleural effusion. She was seen for a follow-up visit on 12/29/2021. Despite the CT findings, there had been a significant decrease in her CA-125, from a pretreatment level of 909.0 U/mL to 118.5 U/mL. She was continuing to show some clinical improvement, but she had developed a fairly large decubitus skin ulceration in the left gluteal area. With the significant decline in her tumor marker, I opted to have her continue with cycle 3 of carboplatin/paclitaxel. She also continued follow-up with Dr. Thacker for wound care management. Radiotherapy to Date: Course: Left Abd Mass, Treatment Site: Mass 45Gy, Ref. ID: [id number], Energy: 15X, Dose/Fx (cGy): 300, #Fx: 15 / 15, Dose Correction (cGy): 0, Total Dose Delivered (cGy): 4,500, Start Date: 10/31/2023, End Date: 11/22/2023, Elapsed Days: 22 Current History: See above Current Medications: Amitriptyline HCl, cARBOplatin, dexamethasone, dexamethasone, dexamethasone Sodium Phosphate, diphenhydrAMINE HCl, duragesic-25, emend, famotidine in NaCl, fentaNYL, fLUoxetine HCl, furosemide, lORazepam, oxyCODONE HCl, oxyCODONE HCl, oxyCODONE-Acetaminophen, pACLitaxel, palonosetron HCl, prochlorperazine Maleate, sodium Chloride, traMADol HCl. Allergies: No Known Allergies Current Complaints / Review of Systems: . See above Vital Signs: Performed on 03/06/2024 9:19 AM BMI - 25.261 kg/m2 (high), Height - 63 in, Weight - 142.6 lbs, Temperature - 97 f, Pulse - 71 /min, Respiration - 16 /min, O2 Sat - 97 %, Pain - 5, Fatigue - 4 and BP - 131/ 73 mm(hg). Physical Exam: General: Alert and oriented x 3. No acute distress. HEENT: Normocephalic atraumatic. Pupils are equal, sclera clear, extraocular muscles intact Pulmonary: Respiratory rate is regular nonlabored Cardiovascular: Regular rate and rhythm Abdomen: She has no pain on palpation. She does have a palpable mass that extends from the pelvic area up approximately midway between the pelvis and the diaphragm. Is very firm to palpation. Extremities: Without clubbing cyanosis or edema Skin: Warm and dry without ecchymoses Neurological: Alert and orient x 3. Gait and speech within normal limits Psych: Affect appropriate for current situation Performance Status: 90 Lab: None pending. Pathology: Primary, c56.9 - malignant neoplasm of unspecified ovary, Diagnosed 11/22/2021 (active) and Primary, c78.6 - secondary malignant neoplasm of retroperitoneum and peritoneum, Diagnosed 11/22/2021 (active) . Imaging: See HPI Impression: Stage IV ovarian cancer Plan: I reviewed with her the previous treatment that she had. During that course of treatment she was so ill she really does not remember much of what we did. Her of course remembers. We talked about the simulation process. We reviewed the daily treatment regiment. I plan to give her an additional 2 weeks of treatment to the mass in the left side of her abdomen. She will undergo simulation today and begin her treatment shortly thereafter. Both her and her have agreed to proceed. And had no additional questions. Signed by: 03/06/2024 9:56:36 AM <<Signature on File>> Time spent with patient:35 CPT Code: CPT Code:
--- NOTE | 2024-03-13 09:44 | ONCRAD EPV_ITS ---
Radiation Oncology Established Patient Visit Patient: Emily Royal [id number] : 1965> Age: 58> Sex: Female> Dictated by: Dr. Bren Thrasher Date of Service: 03/13/2024 Referring Physician(s) : Dr. 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 ID: [id number], Energy:15X, Dose/Fx (cGy): 300, #Fx: 15 / 15, Dose Correction (cGy): 0, Total Dose Delivered (cGy): 4,500, Start Date: 10/31/2023, End Date: 11/22/2023, Elapsed Days: 22 Current History: Current Medications: Amitriptyline HCl, cARBOplatin, dexamethasone, dexamethasone, dexamethasone Sodium Phosphate, diphenhydrAMINE HCl, duragesic-25, emend, famotidine in NaCl, fentaNYL, fLUoxetine HCl, furosemide, lORazepam, oxyCODONE HCl, oxyCODONE HCl, oxyCODONE-Acetaminophen, pACLitaxel, palonosetron HCl, prochlorperazine Maleate, sodium Chloride, traMADol HCl. Allergies: No Known Allergies Current Complaints / Review of Systems: . Physical Exam: General: Alert and oriented x 3. No acute distress. HEENT: Normocephalic atraumatic. Pupils are equal, sclera clear. Abdomen: She has some palpable tenderness in that left upper and lower quadrant. Performance Status: 80 Lab: None pending. Pathology: Primary, c56.9 - malignant neoplasm of unspecified ovary, Diagnosed 11/22/2021 (active) and Primary, c78.6 - secondary malignant neoplasm of retroperitoneum and peritoneum, Diagnosed 11/22/2021 (active) . Imaging: See HPI Impression: Stage IV ovarian cancer Plan: I reviewed with the patient and her that we had worked several different plans amongst the 3 team members. With the shift that she has had from her previous treatment in terms of the shrinkage and shift in her bowel we were unable to come up with a safe plan. We talked about how we might be able to give 3-4 treatments at most. The safety had to do with the amount and dose that the bowel would receive and how quickly she would have side effects from this which could be devastating. At this point they are trying to work through what they can do next. They are thinking about going back to Dr. Jean to see if she can drain the cystic fluid at the top of the mass. They like to maybe meet with Dr. Amor again to see if there is any chemotherapy or immunotherapy that may be available. We even talked briefly about perhaps going to in [place] or the [facility]. At this point she will get lab drawn today as she was little concerned that maybe she is anemic again. She will call once she and her have had time to discuss things and I will see if I can get her an appointment with Dr. Amor before he retires. Signed by: 03/13/2024 9:42:38 AM <<Signature on File>> Time spent with patient: CPT Code: CPT Code:
--- NOTE | 2024-03-25 10:36 | N.ONRD TS_ITS ---
Radiation Oncology Treatment Summary Patient: Emily>Erin MR#: [id number] : 1965> Age: 58> Sex: Female Dictated by: Dr. Bren Thrasher Date of Service: 11/22/2023 Referring Physician(s) : Dr. 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 ID: [id number], Energy: 15X, Dose/Fx (cGy): 300, #Fx: 15 / 15, Dose Correction (cGy): 0, Total Dose Delivered (cGy): 4,500, Start Date: 10/31/2023, End Date: 11/22/2023, Elapsed Days: 22 Clinical Summary: The patient tolerated RT well. She was quite ill and began treatment. She began to feel slightly better towards the end of the 3 weeks. She really did not have any ill effects during the course of her treatment. Plan: End of treatment today. Continue on the above medication until the skin reaction resolves. Follow up in one month. Signed by: Dr. Bren Thrasher>03/25/2024 10:35:06 AM <<Signature on File>>
== END 2023-11-08 23:59 | disposition home or self-care (01) ==
PROVIDERS: Internal Medicine Medical Oncology; PCP Internal Medicine; Visit Provider Radiology Radiation Oncology
DX: Z53.9 Procedure and treatment not carried out, unspecified reason; Z51.0 Encounter for antineoplastic radiation therapy; C56.9 Malignant neoplasm of unspecified ovary; C78.6 Secondary malignant neoplasm of retroperitoneum and peritoneum; Z79.899 Other long term (current) drug therapy
CPT/HCPCS: 36591; 77290; 77295; 77300; 77334; 77336; 77387; 77412; 80053; 85025; 86304; 88104; 96360; 96361; 96365; 96374; 96375; 96376; 99024; 99205; J1642; J2270; J2405; J7030; J7040

== ENCOUNTER 2023-11-17 11:37 | Emergency (ER) | payer MEDICAID, SELFPAY ==
[2023-11-17] VITALS (12 sets, daily range): BP systolic 99–112; BP diastolic 53–71; PULSE 112–121; RESP 16–18; TEMP 37.9; O2SAT 93–98
--- NOTE | 2023-11-17 12:16 | USCV_ITS ---
Genny Diaz Age: 58 Gender: F : 1965 Exam Date: 11/17/2023 11:33 Ordering Phys: Dee Villa MD Technologist: Exam Location: [facility] [place] Indication: left leg swelling/ pain pt with CA PROCEDURES: Venous duplex imaging was performed in only the left lower extremity. FINDINGS: DVT from CFV to Anitha V CONCLUSIONS Occlusive DVT LEFT lower extremity extending from CFV, femoral, deep femoral, popliteal and into peroneal vein. Also, involves LEFT GSV Notified Dr Bagley at 1400 0n 11/17/23 Sonido Morales MD (Electronically Signed) Final Date: 17 November 2023 14:00 S
--- NOTE | 2023-11-17 12:16 | ECG_ITS ---
[facility] Test Date: 2023-11-17 Pat Name: Genny Diaz Department: Room: Gender: Female Clinical Research Spec: : 1965 Requested By: Dee Reynoso Order Number: [id number] Monica MD: Erick Pro M.D. Measurements Intervals [place] Rate: 122 P: 23 NJ: 147 QRS: 31 QRSD: 76 T: 50 QT: 278 QTc: 396 Interpretive Statements SINUS TACHYCARDIA ANTEROSEPTAL MYOCARDIAL INFARCTION , OF INDETERMINATE AGE [40+ ms Q WAVE IN V1-V4] Compared to ECG 10/24/2023 21:48:53 Sinus rhythm no longer present Myocardial infarct finding still present Electronically Signed On 11-18-2023 5:56:44 SILK SCREEN REPAIRER by Erick Pro M.D. [id number]
--- NOTE | 2023-11-17 12:16 | XR_ITS ---
WS: [id number] XR chest 1V [id number] REASON FOR EXAM: shortness of breath FINDINGS: Chemotherapy infusion port over the left chest with trans left subclavian vein catheter just distal t o the innominate vein superior vena caval junction. Moderate tortuosity of the thoracic aorta. The heart size is within normal limits. Calcified granulomas disease in both hemithoraces. Compared to the examination of 10/20/2023, the previous demonstrated opacities in the lower lung field s have resolved. No definite acute or subacute pulmonary parenchymal or pleural abnormality is identi fied. IMPRESSION: Resolution of previous abnormalities with no acute or subacute abnormality identified.
--- NOTE | 2023-11-17 13:33 | ED_ITS ---
HPI - General Adult 2 General: Chief complaint: General Medical Stated complaint: Left leg pain/ sent from dr holliday Time Seen by Provider: 11/17/23 13:33 Source: patient Mode of arrival: ambulatory History of Present Illness: 58-year-old female with a history of sta ge IV ovarian cancer presents emergency room with complaint of left leg pain and swelling. In addition to that she has low-grade fever and is also noticed that over the last week she has had increasing shortness of breath with minimal activity things that usually are not problems some to her are now causing severe shortness of breath. She denies chest pain but she has also noticed tachycardia whenever she is up and active at rest today when I seen her in the emergency room her heart rate is in the 120s. Onset (ago): week(s) Location: chest Relieving factors: none Exacerbating factors: none Associated symptoms: Reports dyspnea, malaise, short of breath and weakness; Deny chest pain, confusion, cough, diaphoresis, decreased appetite, fevers/chills, headache(s), nausea, rash, palpitations, seizures, syncope or vomiting Treatments prior to arrival: none Review of Systems 2 Const: Reports: malaise; Denies: fever(s), chills or diaphoresis Card: Denies: chest pain, palpitations or syncope Resp: Reports: dyspnea GI: Denies: abdominal pain, nausea or vomiting : Denies: dysuria, urinary frequency or urinary urgency Musc: Denies: neck pain or back pain Skin/Breast: Denies: rash Neuro: Denies: headache(s) or confusion PFSH ED 2 PFSH: Medical History (Updated 11/25/23 @ 10:04 by Umberto Bagley DO) Pulmonary emboli Deep vein thrombosis of left lower extremity Ovarian cancer HTN (hypertension) Depression Anxiety Surgical History History of exploratory laparotomy (03/22/22) Low anterior resection with placement of end colostomy History of exploratory laparotomy (03/22/22) total abdominal hysterectomy/BSO, omentectomy, and maximal debulking of peritoneal carcinomatosis History of exploratory laparotomy (03/24/22) Exploratory laparotomy with left colon resection and revision of colostomy Port-A-Cath in place (12/20/21) left subclavian History of tubal ligation History of colonoscopy History of cholecystectomy Family History Mother Colon cancer Cancer Dementia Other Hypertension Denies family history of Diabetes CAD (coronary artery disease) Clotting disorder Hyperlipidemia Psychiatric illness Chronic kidney disease (CKD) Suicide Anesthesia complication Bleeding disorder Lung disease Stroke Social History Smoking and tobacco/nicotine status: never used tobacco/nicotine Alcohol intake: never Substance/Drug Use: never Physical Exam 2 Const: GENERAL APPEARANCE: cooperative and comfortable O RIENTATION/CONSCIOUSNESS: Yes awake, Yes oriented to person, Yes oriented to place and Yes oriented to time HENMT: COMMON NORMALS: normocephalic, atraumatic and hearing grossly normal bilaterally HEAD & SCALP: normocephalic and atraumatic Resp: COMMON NORMALS: normal respiratory effort, No retractions, No use of accessory muscles and clear to auscultation bilaterally AUSCULTATION: clear to auscultation bilaterally Cardio: COMMON NORMALS: regular rate, regular rhythm and No murmurs present (Cardio) RATE: regular rate RHYTHM: regular rhythm GI: COMMON NORMALS: No hepatosplenomegaly present AUSCULTATION: Yes normoactive bowel sounds PALPATION: Yes Tenderness to palpation present (GI) (Generalized), No Guarding due to palpation present (GI) and Yes No hepatosplenomegaly present Extremity: GENERAL: Yes calf tenderness and Yes edema Neuro: SENSORIUM/ORIENTATION: Yes oriented to person, Yes oriented to place and Yes oriented to time Skin: COMMON NORMALS: no rashes or lesions noted GENERAL SKIN EXAM: no rashes or lesions noted Course 2 Vital Signs: Vital signs: Vital Signs Temperature 100.3 F H 11/17/23 12:08 Pulse Rate 119 H 11/17/23 20:41 Respiratory Rate 18 11/17/23 20:41 Blood Pressure 107/53 11/17/23 20:41 Pulse Oximetry 97 11/17/23 20:41 Oxygen Delivery Me thod Room Air 11/17/23 18:30 MDM - General Adult Medical Decision Making Patient has DVT with new pulmonary emboli for which she is symptomatic of. Unfortunately she also has necrotic pelvic mass from an ovarian CA has carcinomatosis of the abdomen and spread to the retroperitoneal space with a recent left perinephric bleed which was treated with platelets and fresh frozen plasma and blood. Unfortunately we are in the difficult position of having to start her on heparin despite this bleed. Consulted with Dr. Holliday and also did review the case with Dr. Romero one of our hospitalist they both concur at this point she has to have the heparin for the PE. Will transfer to [facility]. If she has continued bleeding they may need to intervene with either thrombectomy directed thrombolytic on the PE or possible embolization to stop any developing bleeding in the retroperitoneal space. Discussed with the patient this is very concerning with her overall picture and there is significant risk she understands it and agrees to go on with heparin. Medical Records I reviewed the patient's medical records. Lab Data I reviewed the patient's lab results. 11/17/23 13:35 11/17/23 13:35 Laboratory Results WBC 3.07 10^3/uL (3.29-11.43) L 11/17/23 13:35 RBC 3.53 10^6/uL (3.85-5.65) L 11/17/23 13:35 Hgb 9.50 g/dL (11.27-16.99) L 11/17/23 13:35 Hct 31.7 % (36-47) L 11/17/23 13:35 MCV 89.8 fl (85-98) 11/17/23 13:35 MCH 26.9 pg (27-33) L 11/17/23 13:35 MCHC 30.0 g/dL (30-55) 11/17/23 13:35 RDW 15.2 % (12.1-15.1) H 11/17/23 13:35 Plt Count 283 10^3/cmm (157-399) 11/17/23 13:35 MPV 9.4 fL (7.4-10.4) 11/17/23 13:35 Neut % (Auto) 76.8 % 11/17/23 13:35 Lymph % (Auto) 1.6 % 11/17/23 13:35 [place] % (Auto) 17.3 % 11/17/23 13:35 Eos % (Auto) 0.7 % 11/17/23 13:35 Baso % (Auto) 0.7 % 11/17/23 13:35 Neut # (Auto) 2.36 10^3/uL (1.8-7.7) 11/17/23 13:35 Lymph # (Auto) 0.1 10^3/uL (0.8-4.8) L 11/17/23 13:35 [place] # (Auto) 0.5 10^3/uL (0.2-0.9) 11/17/23 13:35 Eos # (Auto) 0.0 10^3/uL (0.0-0.8) 11/17/23 13:35 Baso # (Auto) 0.0 10^3/uL (0.0-0.1) 11/17/23 13:35 Nucleated RBC % (auto) 0 % 11/17/23 13:35 Nucleated RBCs # 0.0 /100WBC 11/17/23 13:35 Sodium 131 mmol/L (136-145) L 11/17/23 13:35 Potassium 4.8 mmol/L (3.5-5.1) 11/17/23 13:35 Chloride 96 mmol/L (98-107) L 11/17/23 13:35 Carbon Dioxide 19 mmol/L (22-29) L 11/17/23 13:35 Anion Gap 20.8 (5-19) H 11/17/23 13:35 BUN 30 mg/dL (6-20) H 11/17/23 13:35 Creatinine 1.7 mg/dL (0.5-0.9) H 11/17/23 13:35 GFR Calculation 30.8 mL/min (90-130) L 11/17/23 13:35 Glucose 155 mg/dL (65-115) H 11/17/23 13:35 Calculated Osmolality 281 mOsm/kg (285-295) L 11/17/23 13:35 Lactic Acid 2.3 mmol/L (0.5-2.2) H 11/17/23 13:35 Lactic Acid (Sepsis) 1.5 mmol/L (0.5-2.2) 11/17/23 16:28 Calcium 10.0 mg/dL (8.5-10.5) 11/17/23 13:35 Total Bilirubin 0.5 mg/dL (0.15-1.2) 11/17/23 13:35 AST 43 U/L (0-32) H 11/17/23 13:35 ALT 8 U/L (0-33) 11/17/23 13:35 Alkaline Phosphatase 118 U/L (35-105) H 11/17/23 13:35 C-Reactive Protein 265.4 mg/L (0.0-4.9) H 11/17/23 13:35 Total Protein 7.5 g/dL (6.6-8.7) 11/17/23 13:35 Albumin 3.3 g/dL (3.5-5.2) L 11/17/23 13:35 Globulin 4.2 g/dL (1.3-4.6) 11/17/23 13:35 Procalcitonin 1.15 ng/mL (0-0.5) H 11/17/23 13:35 Coronavirus 229E (PCR) Not detected (NOT DETECT) 11/17/23 14:20 Influenza A (H1) PCR Not detected (NOT DETECT) 11/17/23 14:20 Influ A (H1/09) PCR Not detected (NOT DETECT) 11/17/23 14:20 Influenza A (H3) PCR Not detected (NOT DETECT) 11/17/23 14:20 Influenza Type A Ag Cancelled 11/17/23 14:20 Influenza Type A (PCR) Not detected (NOT DETECT) 11/17/23 14:20 Influenza Type B Ag Cancelled 11/17/23 14:20 Influenza Type B (PCR) Not detected (NOT DETECT) 11/17/23 14:20 SARS-CoV-2 (PCR) Not detected (NOT DETECT) 11/17/23 14:20 All radiology interpretation(s) finalized by discharge Critical Care Time 2 Critical Care Time: Critical Care Time: Yes Total Critical Care Time: 45 Attestation: The high probability of a clinically significant, sudden or life threatening deterioration of the patient's cardiovascular respiratory hematologic system(s) required my full and direct attention, intervention and personal management. The critical care time is as shown. This time is in addition to time spent performing any reported procedures but includes the following: [x] Data and vital sign review and interpretation [x] Patient assessment, examination and intervention [x] Documentation [x] Medication orders and management Discharge Plan Discharge Patient Disposition: Transfer to ED Clinical Impression: Pulmonary emboli, Malignant neoplasm of unspecified ovary, Deep vein thrombosis of left lower extremity, Abdominal carcinomatosis, Perinephric hematoma Condition: Stable Prescriptions: No Action amlodipine 10 mg tablet 10 mg PO DAILY (DME) Wheeled seated walker See Rx Instructions .Route .MEDSUPPLY Qty: 1 0RF Rx Instructions: As directed furosemide 40 mg tablet 40 mg PO DAILY PRN (Reason: lower extrmemity edema) Qty: 30 3RF morphine 15 mg tablet 15 mg PO Q6H PRN (Reason: pain) 30 Days Qty: 120 0RF pantoprazole 40 mg tablet,delayed release (DR/EC) 40 mg PO DAILY Qty: 30 1RF potassium chloride 10 mEq tablet extended release 10 meq PO BID PRN (Reason: on diuretic) Qty: 60 3RF lactulose 20 gram/30 mL solution 20 g PO .COMPLEX MDD 180 ml Qty: 1200 0RF Rx Instructions: 30 mL Q2H PRN until bowel movement, repeat every 72 hours as needed gabapentin 300 mg capsule 300 mg PO BID MDD 900 Qty: 60 0RF hetastarch 6 % in 0.9 % NaCl [Hespan 6 % in NS] 6 % solution 500 ml IV TID Rx Instructions: do not exceed total dose = 3 grams (50 mL )/kg/24 hrs : administer at rate not to exceed 20 mL (1.2 grams )/kg/hr ondansetron HCl 4 mg tablet 4 mg PO Q6H PRN (Reason: nausea and vomiting) Qty: 60 0RF prednisone 10 mg tablet 10 mg PO BID Qty: 60 0RF spironolactone 25 mg Tablet 25 mg PO DAILY Qty: 90 0RF oxycodone 5 mg capsule 5 mg PO Q4H PRN (Reason: Pain (Scale Score 7-10)) amitriptyline 25 mg Tablet 25 mg PO BEDTIME Qty: 30 0RF magnesium L-threonate 48 mg magnesium (667 mg) capsule 48 mg PO DAILY Qty: 90 0RF Narcan 4 mg/actuation spray,non-aerosol 4 mg intranasal Q2M PRN (Reason: opioid overdose) Qty: 2 0RF Rx Instructions: spray 1 dose into ONE nostril; alternate nostrils w each dose until help arrives Referrals: Deepa Farris MD [Primary Care Provider] - Coding Level of Care Code ED Tester Equipment for [facility] Mamie
[2023-11-17 13:52] LABS: Basophils % 0.7 %; Eosinophils % 0.7 %; Hematocrit 31.7 % (36-47); Lymphocytes # 0.1 10^3/uL (0.8-4.8); Lymphocytes % 1.6 %; Mean Corpuscular Hemoglobin 26.9 pg (27-33); Mean Corpuscular Volume 89.8 fl (85-98); Mean Platelet Volume 9.4 fL (7.4-10.4); Monocytes # 0.5 10^3/uL (0.2-0.9); Monocytes % 17.3 %; Neutrophils # 2.36 10^3/uL (1.8-7.7); Neutrophils % 76.8 %; Nucleated Red Blood Cells % 0 %; Platelet Count 283 10^3/cmm (157-399); Red Blood Count 3.53 10^6/uL (3.85-5.65); Red Cell Distribution Width 15.2 % (12.1-15.1); White Blood Count 3.07 10^3/uL (3.29-11.43)
[2023-11-17 14:09] LABS: Lactic Sepsis W/Reflex 2.3 mmol/L (0.5-2.2)
[2023-11-17] MEDS: sodium chloride 0.9% 1,000 ML 999 ML IV (14:18)
--- NOTE | 2023-11-17 14:18 | CT_ITS ---
WS: [id number] CTA OF THE CHEST WITH PULMONARY EMBOLISM PROTOCOL TECHNIQUE: High-resolution contrast enhanced CTA of the chest with coronal and sagittal reformatted i mages with pulmonary embolism protocol. MIP images are also reviewed. CLINICAL INFORMATION: dyspnea COMPARISON: None. DLP: 267.[address] scans at [facility] use at least one of these dose optimization techniques: automated e xposure control; mA and/or kV adjustment per patient size (includes targeted exams where dose is matc hed to clinical indication); or iterative reconstruction. FINDINGS: Filling defects compatible with acute pulmonary embolus in the distal RIGHT main pulmonary artery ext ending to the segmental and subsegmental pulmonary arteries. LEFT main pulmonary artery is patent. A few small filling defects in the distal LEFT segmental and subsegmental pulmonary arteries LEFT lower lobe. Evidence of RIGHT heart strain with paradoxical interventricular septal bowing of the intraven tricular septum. This could be further evaluated with echocardiogram. Normal caliber thoracic aorta. Normal caliber descending thoracic aorta. Subsegmental atelectasis LEFT upper lobe with bronchiectasis. Small LEFT pleural effusion present on the previous examination 10/23/2023 and is similar in appearance. LEFT basilar atelectasis. RIGHT lung is well aerated. Slight RIGHT basilar atelectasis. No axillary lymphadenopathy. LEFT Port-A-Cath wit h tip in the SVC. Elevation LEFT hemidiaphragm. Bulky omental implants compatible with carcinomatosis partially visuali zed in the LEFT upper abdomen and along the RIGHT diaphragm surface. Large LEFT perinephric hematoma partially visualized measuring approximately 11.8 x 10.5 cm with some residual increased attenuation blood products. Compression and deformity of the underlying LEFT kidn ey. Adrenal glands appear normal. Normal GE junction. Cholecystectomy clips. IMPRESSION: 1. Acute pulmonary embolus worse on the RIGHT with filling defects in the distal RIGHT main pulmonar y artery extending into the segmental and subsegmental pulmonary arteries. Smaller filling defects in the LEFT lower lobe segmental and subsegmental pulmonary arteries. 2. Partially visualized LEFT perinephric hematoma previously described on the prior CT 10/23/2023. As sociated compression of the underlying LEFT kidney. 3. Paradoxical interventricular septal bowing compatible with RIGHT heart strain. 4. Omental carcinomatosis partially visualized in the upper abdomen with bulky omental nodular impla nts. Additional nodular implants along the surface of the diaphragm. 5. Small LEFT pleural effusion with LEFT basal atelectasis. Notified Umberto Bagley DO at 11/17/2023 4:02 PM.
[2023-11-17 14:21] LABS: Procalcitonin 1.15 ng/mL (0-0.5)
[2023-11-17 14:24] LABS: Slide Review Slide Review Perform
[2023-11-17] MEDS: enoxaparin 80 mg/0.8 mL Syringe 70 MG SUBCUT (14:31)
[2023-11-17 14:32] LABS: Alanine Aminotransferase 8 U/L (0-33); Albumin Level 3.3 g/dL (3.5-5.2); Alkaline Phosphatase 118 U/L (35-105); Anion Gap 20.8 (5-19); Aspartate Amino Transferase 43 U/L (0-32); Blood Urea Nitrogen 30 mg/dL (6-20); C Reactive Protein 265.4 mg/L (0.0-4.9); Carbon Dioxide 19 mmol/L (22-29); Chloride 96 mmol/L (98-107); Globulin 4.2 g/dL (1.3-4.6); Glomerular Filtration Rate 30.8 mL/min (90-130); Glucose 155 mg/dL (65-115); Osmolality Calculated 281 mOsm/kg (285-295); Potassium 4.8 mmol/L (3.5-5.1); Sodium 131 mmol/L (136-145); Total Bilirubin 0.5 mg/dL (0.15-1.2); Total Protein 7.5 g/dL (6.6-8.7)
[2023-11-17] MEDS: iohexol 350 mg/mL 500 mL Btl (per mL) IV (15:26)
[2023-11-17 15:32] LABS: Reflex Lactate Order REFLEX LACTIC ORDERD
--- NOTE | 2023-11-17 15:52 | CT_ITS ---
WS: [id number] CT ABDOMEN PELVIS TECHNIQUE: Noncontrast CT of the abdomen and pelvis with coronal and sagittal reformatted images. CLINICAL INFORMATION: flank pain COMPARISON: CT 10/23/2023 DLP: 543.[address] scans at [facility] use at least one of these dose optimization techniques: automated e xposure control; mA and/or kV adjustment per patient size (includes targeted exams where dose is matc hed to clinical indication); or iterative reconstruction. FINDINGS: Again seen is the previously described perinephric hematoma with compression and deformity of the LEFT kidney. Mainly low attenuation hematoma measures 13.0 x 10.3 x 16.5 cm with a small amoun t of residual increased attenuation blood products. Increased attenuation blood products have improve d compared to previous. Overall perinephric hematoma has increased in size compared to 10/23/2023. Pre viously perinephric hematoma measured approximately 9.8 x 7.6 x 10.5 cm. Increased compression deform ity of the LEFT kidney today. Again seen is a large necrotic hemorrhagic mass in the LEFT retroperitoneum involving the LEFT psoas extending to the LEFT iliacus. Associated central necrosis with mass effect on the LEFT kidney. This slightly abuts the aorta at the bifurcation with encasement of the LEFT common iliac artery and exter nal/internal iliac arteries. Large necrotic mass with associated heterogeneous enhancement measures a pproximately 16.4 x 13.3 x 17.2 cm. This is slightly increased in size since 10/23/2023 and significan tly increased in size since September 2023. Normal excretion RIGHT kidney in the RIGHT ureter from contrast earlier. Contrast is visualized in th e bladder. No significant LEFT ureteral emptying. Surgical clips in the pelvis. Hepatomegaly. Prior c holecystectomy. Omental implants along the undersurface of the RIGHT hepatic lobe and central mesente ry. Adrenal glands appear normal. Ectatic RIGHT common iliac artery. Disc base narrowing worse at L4- L5 and L5-S1. Stable postoperative changes of sigmoidectomy and LEFT lower quadrant colostomy. Again seen are multi ple peritoneal implants in the upper abdomen compatible with omental carcinomatosis extending along t he surface of the diaphragm and liver in the RIGHT and LEFT upper quadrants. Additional evidence of o mental carcinomatosis in the mesentery. Small LEFT pleural effusion with LEFT lower lobe atelectasis. . IMPRESSION: 1. Large mainly low-attenuation LEFT perinephric hematoma with compression and deformity of the LEFT kidney. Small amount of residual high attenuation blood products. Perinephric hematoma today measure s 13.0 x 10.3 x 16.5 cm increased in size from previous. Increased distortion and compression of the LEFT kidney. No significant LEFT ureteral emptying. 2. Large heterogeneously enhancing necrotic hemorrhagic LEFT retroperitoneal mass encasing the LEFT common iliac artery as well as the external and internal iliac arteries. Involvement of the LEFT psoa s and LEFT iliacus. This involves the LEFT abdominal wall musculature with loss of the normal fat chanda ne. This is increased in size since September 2023 and appears slightly slightly increased in size sin ce 10/23/2023. Mass measures 16.4 x 13.3 x 17.2 cm. 3. Normal RIGHT ureteral excretion. 4. Peritoneal carcinomatosis with numerous perihepatic and subdiaphragmatic peritoneal implants with additional implants in the mesentery. 5. Small LEFT pleural effusion with LEFT basal atelectasis. 6. Hepatomegaly. 7. Prior stable postoperative changes sigmoidectomy and LEFT lower quadrant colostomy.
[2023-11-17 16:17] LABS: Adenovirus Not Detected (NOT DETECT); Chlamydia Pneumoniae Not Detected (NOT DETECT); Coronavirus 229E,HKU1,NL63,OC4 Not Detected (NOT DETECT); Human Metapneumovirus Not Detected (NOT DETECT); Human Rhinovirus/Enterovirus Not Detected (NOT DETECT); Influenza A Not Detected (NOT DETECT); Influenza A H1 Not Detected (NOT DETECT); Influenza A H1-2009 Not Detected (NOT DETECT); Influenza A H3 Not Detected (NOT DETECT); Influenza B Not Detected (NOT DETECT); Mycoplasma Pneumoniae Not Detected (NOT DETECT); Parainfluenza Virus Type 1 Not Detected (NOT DETECT); Parainfluenza Virus Type 2 Not Detected (NOT DETECT); Parainfluenza Virus Type 3 Not Detected (NOT DETECT); Parainfluenza Virus Type 4 Not Detected (NOT DETECT); Respiratory Syncytial Virus A Not Detected (NOT DETECT); Respiratory Syncytial Virus B Not Detected (NOT DETECT); SARS-COV-2 Not Detected (NOT DETECT)
[2023-11-17 16:19] LABS: Influenza A Not Detected (NOT DETECT); Influenza A H1 Not Detected (NOT DETECT); Influenza A H1-2009 Not Detected (NOT DETECT); Influenza A H3 Not Detected (NOT DETECT); Influenza B Not Detected (NOT DETECT); Results from Genmark
[2023-11-17] MEDS: heparin 5,000 unit/mL INJ 1 mL IV (16:38)
[2023-11-17] MEDS: heparin drip 25,000 UNIT/500 ML PREMIX 18.16 UNIT IV (16:40)
[2023-11-17 17:08] LABS: Lactic Acid level (Lactate) 1.5 mmol/L (0.5-2.2)
[2023-11-17] MEDS: piperacillin-tazobactam 3.375 GM in sodium chloride 0.9% (plus) 50 ML IV (17:30)
--- NOTE | 2023-11-17 17:49 | PC.NURSE ---
REPORT CALLED KELLI CASTELLANOS TO [facility]. RECEIVING NURSE REQUESTED TO BE NOTIFIED WHEN THE PATIENT LEAVES TO HEAD TO ACCEPTING FACILITY.
[2023-11-17] MEDS: ondansetron 2 mg/ML SDV 2 mL 4 MG IVP (19:26)
[2023-11-17] MEDS: morphine 4 mg/mL SDV 1 mL IVP (19:26)
--- NOTE | 2023-11-17 20:26 | PC.NURSE ---
Pt. family came out to nurses station with concern of obvious abdomen swelling that has grown noticably larger in 30 minutes. After consulting with Dr. Lacey, Dr. Lacey said to hold the heparin at this time. Nancy CASTELLANOS called and notified of change.
--- NOTE | 2023-11-21 03:21 | PC.NURSE ---
positive blood culture this nurse took a positive blood culture from lab. 1/ bottles gram positive rods in chains. this nurse attempted to call [facility] but pt had been dc'd this nurse wrote a nurses note for [facility] to notify physician.
[2023-11-21 04:46] LABS: Bacillus cereus group Not Detected (NOT DETECT); Bacillus subtillis group Detected (NOT DETECT); Corynebacterium Not Detected (NOT DETECT); Cutibacterium acnes (P.acnes) Not Detected (NOT DETECT); Enterococcus Not Detected (NOT DETECT); Enterococcus faecalis Not Detected (NOT DETECT); Enterococcus faecium Not Detected (NOT DETECT); Lactobacillus species Not Detected (NOT DETECT); Listeria Not Detected (NOT DETECT); Listeria monocytogenes Not Detected (NOT DETECT); Micrococcus Not Detected (NOT DETECT); Pan Candida Not Detected (NOT DETECT); Pan Gram-Negative Not Detected (NOT DETECT); Staphylococcus epidermidis Not Detected (NOT DETECT); Staphylococcus lugdunensis Not Detected (NOT DETECT); Staphylococcus species Not Detected (NOT DETECT); Streptococcus agalactiae Not Detected (NOT DETECT); Streptococcus anginosus group Not Detected (NOT DETECT); Streptococcus pneumoniae Not Detected (NOT DETECT); Streptococcus pyogenes Not Detected (NOT DETECT); Streptococcus species Not Detected (NOT DETECT)
== END 2023-11-17 20:47 ==
PROVIDERS: Emergency Medicine; Emergency Provider Family Medicine; PCP Internal Medicine
DX: I26.99 Other pulmonary embolism without acute cor pulmonale (principal); I82.402 Acute embolism and thrombosis of unspecified deep veins of left lower extremity; C78.6 Secondary malignant neoplasm of retroperitoneum and peritoneum; S30.23XA Contusion of vagina and vulva, initial encounter; C56.9 Malignant neoplasm of unspecified ovary; Z11.52 Encounter for screening for COVID-19; X58.XXXA Exposure to other specified factors, initial encounter; N28.89 Other specified disorders of kidney and ureter; I10 Essential (primary) hypertension
CPT/HCPCS: 36415; 71045; 71275; 74176; 80053; 83605; 84145; 85025; 86140; 87040; 87150; 87205; 87631; 87635; 93005; 93971; 96365; 96366; 96372; 96375; 99285; J1644; J1650; J2270; J2405; J2543; J7030; Q9967

== ENCOUNTER 2023-12-05 08:33 | Oncology outpatient (recurring) (ONCR) | payer MEDICAID, SELFPAY ==
[2023-11-10] MEDS: sodium chloride 0.9% 1,000 ML 999 ML IV (08:42)
[2023-11-10 09:28] VITALS: BP 113/68; PULSE 101; RESP 16; TEMP 36.5; O2SAT 90
[2023-11-13 11:52] LABS: Basophils % 0.2 %; Eosinophils # 0.4 10^3/uL (0.0-0.8); Eosinophils % 6.8 %; Lymphocytes # 0.2 10^3/uL (0.8-4.8); Lymphocytes % 3.1 %; Mean Corpuscular Hemoglobin 27.5 pg (27-33); Mean Corpuscular Volume 91.7 fl (85-98); Mean Platelet Volume 9.4 fL (7.4-10.4); Monocytes # 0.8 10^3/uL (0.2-0.9); Monocytes % 13.4 %; Neutrophils # 4.66 10^3/uL (1.8-7.7); Nucleated Red Blood Cells % 0 %; Platelet Count 270 10^3/cmm (157-399); Red Blood Count 3.27 10^6/uL (3.85-5.65); Red Cell Distribution Width 14.8 % (12.1-15.1)
[2023-11-13] MEDS: sodium chloride 0.9% 1,000 ML 999 ML IV (11:52)
[2023-11-15] MEDS: sodium chloride 0.9% 1,000 ML 999 ML IV (11:55)
[2023-11-22 13:34] LABS: Hematocrit 28.1 % (36-47); Mean Corpuscular HGB Conc 29.5 g/dL (30-55); Mean Corpuscular Hemoglobin 26.6 pg (27-33); Mean Corpuscular Volume 90.1 fl (85-98); Mean Platelet Volume 9.9 fL (7.4-10.4); Platelet Count 191 10^3/cmm (157-399); Red Blood Count 3.12 10^6/uL (3.85-5.65); Red Cell Distribution Width 15.7 % (12.1-15.1); White Blood Count 3.72 10^3/uL (3.29-11.43)
[2023-11-22 13:57] LABS: Alanine Aminotransferase 8 U/L (0-33); Albumin Level 2.7 g/dL (3.5-5.2); Alkaline Phosphatase 65 U/L (35-105); Anion Gap 15.1 (5-19); Aspartate Amino Transferase 36 U/L (0-32); Blood Urea Nitrogen 19 mg/dL (6-20); Calcium 8.7 mg/dL (8.5-10.5); Carbon Dioxide 21 mmol/L (22-29); Chloride 105 mmol/L (98-107); Creatinine Clr Calc Pharmacy 62.6822; Globulin 3.1 g/dL (1.3-4.6); Glomerular Filtration Rate 56.7 mL/min (90-130); Glucose 119 mg/dL (65-115); Osmolality Calculated 287 mOsm/kg (285-295); Potassium 4.1 mmol/L (3.5-5.1); Sodium 137 mmol/L (136-145); Total Bilirubin 0.3 mg/dL (0.15-1.2); Total Protein 5.8 g/dL (6.6-8.7)
[2023-11-22 14:50] LABS: Slide Review Slide Review Perform
[2023-11-22 14:51] LABS: Absolute Neutrophil 2.9 10^3/cmm (1.4-6.5); Absolute Segmented Neutrophil 2.8 10/cmm (1.6-7.1); Band Neutrophils Absolute 0.1 10^3/cmm (0.0-1.2); Eosinophils 1 %; Lymphocytes 6 %; Monocytes Absolute 0.4 10^3/cmm (0.1-0.6); Platelet Estimate Normal (Normal); Segmented Neutrophils 76 %; Total Cells Counted 100 (0-100)
[2023-11-22 15:39] LABS: CA 125 28.6 U/mL (0-35)
[2023-11-22 20:27] LABS: C.Diff PCR (Lab) NEGATIVE (Negative)
[2023-11-23 08:58] VITALS: BP 109/73; PULSE 105; RESP 16; TEMP 36.4; O2SAT 97
[2023-11-23] MEDS: acetaminophen 325 mg Tablet 650 MG PO (10:27)
[2023-11-23] MEDS: diphenhydrAMINE 25 mg Capsule PO (10:28)
[2023-11-23] MEDS: sodium chloride 0.9% 250 mL Bag IV (10:28)
[2023-11-23 11:25] VITALS: BP 113/73; PULSE 100; TEMP 35.9; O2SAT 98
[2023-11-23 11:40] VITALS: BP 119/75; PULSE 99; TEMP 36.7
[2023-11-27 09:02] LABS: Basophils % 0.7 %; Eosinophils # 0.2 10^3/uL (0.0-0.8); Eosinophils % 7.1 %; Hematocrit 33.9 % (36-47); Lymphocytes # 0.1 10^3/uL (0.8-4.8); Lymphocytes % 3.7 %; Mean Corpuscular HGB Conc 30.7 g/dL (30-55); Mean Corpuscular Hemoglobin 27.2 pg (27-33); Mean Corpuscular Volume 88.7 fl (85-98); Mean Platelet Volume 9.5 fL (7.4-10.4); Monocytes # 0.5 10^3/uL (0.2-0.9); Monocytes % 17.5 %; Neutrophils # 1.87 10^3/uL (1.8-7.7); Neutrophils % 69.5 %; Nucleated Red Blood Cells % 0 %; Platelet Count 156 10^3/cmm (157-399); Red Blood Count 3.82 10^6/uL (3.85-5.65); Red Cell Distribution Width 15.2 % (12.1-15.1); White Blood Count 2.69 10^3/uL (3.29-11.43)
[2023-11-27 09:24] LABS: Alanine Aminotransferase 7 U/L (0-33); Albumin Level 2.9 g/dL (3.5-5.2); Alkaline Phosphatase 73 U/L (35-105); Anion Gap 16.4 (5-19); Aspartate Amino Transferase 36 U/L (0-32); Blood Urea Nitrogen 22 mg/dL (6-20); Calcium 10.1 mg/dL (8.5-10.5); Carbon Dioxide 26 mmol/L (22-29); Chloride 97 mmol/L (98-107); Creatinine Clr Calc Pharmacy 69.6469; Globulin 2.9 g/dL (1.3-4.6); Glomerular Filtration Rate 64.1 mL/min (90-130); Glucose 97 mg/dL (65-115); Osmolality Calculated 283 mOsm/kg (285-295); Potassium 4.4 mmol/L (3.5-5.1); Sodium 135 mmol/L (136-145); Total Bilirubin 0.5 mg/dL (0.15-1.2); Total Protein 5.8 g/dL (6.6-8.7)
[2023-11-27 09:45] LABS: Slide Review Slide Review Perform
[2023-11-27] MEDS: sodium chloride 0.9% 1,000 ML 400 ML IV (11:27)
[2023-11-27 13:36] VITALS: BP 131/83; PULSE 101; RESP 16; TEMP 36.6; O2SAT 98
[2023-11-30] MEDS: sodium chloride 0.9% 1,000 ML 999 ML IV (10:39)
[2023-11-30 10:42] LABS: Basophils % 0.8 %; Eosinophils # 0.1 10^3/uL (0.0-0.8); Eosinophils % 3.8 %; Hematocrit 31.7 % (36-47); Lymphocytes # 0.1 10^3/uL (0.8-4.8); Lymphocytes % 4.2 %; Mean Corpuscular HGB Conc 30.9 g/dL (30-55); Mean Corpuscular Hemoglobin 27.5 pg (27-33); Mean Corpuscular Volume 88.8 fl (85-98); Mean Platelet Volume 9.8 fL (7.4-10.4); Monocytes # 0.6 10^3/uL (0.2-0.9); Monocytes % 22.3 %; Neutrophils # 1.78 10^3/uL (1.8-7.7); Neutrophils % 67.4 %; Nucleated Red Blood Cells % 0 %; Platelet Count 146 10^3/cmm (157-399); Red Blood Count 3.57 10^6/uL (3.85-5.65); Red Cell Distribution Width 15.3 % (12.1-15.1); White Blood Count 2.64 10^3/uL (3.29-11.43)
[2023-11-30 11:56] VITALS: BP 124/77; PULSE 102; RESP 18; TEMP 36.6; O2SAT 97
[2023-12-05 09:03] LABS: Basophils % 0.3 %; Eosinophils # 0.1 10^3/uL (0.0-0.8); Eosinophils % 2.7 %; Hematocrit 29.9 % (36-47); Lymphocytes # 0.2 10^3/uL (0.8-4.8); Lymphocytes % 7.3 %; Mean Corpuscular HGB Conc 30.4 g/dL (30-55); Mean Corpuscular Hemoglobin 27.3 pg (27-33); Mean Corpuscular Volume 89.8 fl (85-98); Mean Platelet Volume 9.5 fL (7.4-10.4); Monocytes # 0.6 10^3/uL (0.2-0.9); Monocytes % 17.6 %; Nucleated Red Blood Cells % 0 %; Platelet Count 155 10^3/cmm (157-399); Red Blood Count 3.33 10^6/uL (3.85-5.65); Red Cell Distribution Width 15.9 % (12.1-15.1); White Blood Count 3.29 10^3/uL (3.29-11.43)
[2023-12-05 09:22] LABS: Alanine Aminotransferase 9 U/L (0-33); Albumin Level 2.7 g/dL (3.5-5.2); Alkaline Phosphatase 85 U/L (35-105); Anion Gap 13.7 (5-19); Aspartate Amino Transferase 38 U/L (0-32); Blood Urea Nitrogen 15 mg/dL (6-20); Carbon Dioxide 28 mmol/L (22-29); Chloride 99 mmol/L (98-107); Creatinine Clr Calc Pharmacy 56.9838; Glomerular Filtration Rate 50.8 mL/min (90-130); Glucose 104 mg/dL (65-115); Osmolality Calculated 285 mOsm/kg (285-295); Potassium 3.7 mmol/L (3.5-5.1); Sodium 137 mmol/L (136-145); Total Bilirubin 0.3 mg/dL (0.15-1.2); Total Protein 5.7 g/dL (6.6-8.7)
[2023-12-05] MEDS: sodium chloride 0.9% 1,000 ML 999 ML IV (10:14)
[2023-12-05] MEDS: denosumab 120 mg SDV SUBCUT (11:31)
[2023-12-05 12:03] VITALS: BP 142/78; PULSE 78; RESP 17; TEMP 36.6; O2SAT 98
== END 2023-12-07 23:59 | disposition home or self-care (01) ==
PROVIDERS: Internal Medicine Medical Oncology; Nurse Practitioner Family; PCP Internal Medicine; Visit Provider Radiology Radiation Oncology
DX: Z53.9 Procedure and treatment not carried out, unspecified reason (principal); Z51.11 Encounter for antineoplastic chemotherapy; C56.9 Malignant neoplasm of unspecified ovary; C78.6 Secondary malignant neoplasm of retroperitoneum and peritoneum
CPT/HCPCS: 36430; 36591; 77336; 77387; 77412; 80053; 85007; 85025; 86304; 86850; 86900; 86920; 87493; 96360; 96401; J0897; J1642; J7030; J7050; P9040

== ENCOUNTER 2024-01-05 10:30 | Oncology outpatient (recurring) (ONCR) | payer MEDICAID, SELFPAY ==
[2023-12-12 11:15] LABS: Basophils % 0.5 %; Eosinophils # 0.1 10^3/uL (0.0-0.8); Eosinophils % 1.9 %; Hematocrit 30.1 % (36-47); Lymphocytes # 0.3 10^3/uL (0.8-4.8); Lymphocytes % 5.5 %; Mean Corpuscular HGB Conc 29.9 g/dL (30-55); Mean Corpuscular Hemoglobin 27.4 pg (27-33); Mean Corpuscular Volume 91.8 fl (85-98); Mean Platelet Volume 9.9 fL (7.4-10.4); Monocytes # 0.6 10^3/uL (0.2-0.9); Monocytes % 10.3 %; Neutrophils # 4.72 10^3/uL (1.8-7.7); Neutrophils % 80.6 %; Nucleated Red Blood Cells % 0 %; Platelet Count 194 10^3/cmm (157-399); Red Blood Count 3.28 10^6/uL (3.85-5.65); Red Cell Distribution Width 17.2 % (12.1-15.1); White Blood Count 5.85 10^3/uL (3.29-11.43)
[2023-12-12 11:36] LABS: Alanine Aminotransferase 9 U/L (0-33); Albumin Level 2.9 g/dL (3.5-5.2); Alkaline Phosphatase 100 U/L (35-105); Anion Gap 12.8 (5-19); Aspartate Amino Transferase 31 U/L (0-32); Blood Urea Nitrogen 16 mg/dL (6-20); Carbon Dioxide 30 mmol/L (22-29); Chloride 100 mmol/L (98-107); Globulin 2.8 g/dL (1.3-4.6); Glucose 91 mg/dL (65-115); Osmolality Calculated 289 mOsm/kg (285-295); Potassium 3.8 mmol/L (3.5-5.1); Sodium 139 mmol/L (136-145); Total Bilirubin 0.4 mg/dL (0.15-1.2); Total Protein 5.7 g/dL (6.6-8.7)
[2023-12-12] MEDS: sodium chloride 0.9% 1,000 ML 999 ML IV (11:39)
[2023-12-12] MEDS: ondansetron 2 mg/ML SDV 2 mL 8 MG IVP (12:15)
[2023-12-12] MEDS: gemcitabine 1,600 MG in sodium chloride 0.9% (100 ml) 100 ML 284.160000000000025 MG IV (12:52)
[2023-12-12 13:50] VITALS: BP 136/84; PULSE 94; O2SAT 96
[2023-12-12] MEDS: denosumab 120 mg SDV SUBCUT (13:54)
[2023-12-19 10:26] LABS: Basophils % 0.4 %; Eosinophils % 0.4 %; Hematocrit 26.1 % (36-47); Lymphocytes # 0.3 10^3/uL (0.8-4.8); Mean Corpuscular HGB Conc 29.9 g/dL (30-55); Mean Corpuscular Hemoglobin 27.4 pg (27-33); Mean Corpuscular Volume 91.6 fl (85-98); Mean Platelet Volume 9.4 fL (7.4-10.4); Monocytes # 0.2 10^3/uL (0.2-0.9); Monocytes % 7.4 %; Neutrophils # 2.15 10^3/uL (1.8-7.7); Neutrophils % 79.9 %; Nucleated Red Blood Cells % 0 %; Platelet Count 63 10^3/cmm (157-399); Red Blood Count 2.85 10^6/uL (3.85-5.65); Red Cell Distribution Width 17.2 % (12.1-15.1); White Blood Count 2.69 10^3/uL (3.29-11.43)
[2023-12-19 10:55] LABS: Alanine Aminotransferase 11 U/L (0-33); Albumin Level 2.8 g/dL (3.5-5.2); Alkaline Phosphatase 99 U/L (35-105); Anion Gap 13.5 (5-19); Aspartate Amino Transferase 26 U/L (0-32); Blood Urea Nitrogen 19 mg/dL (6-20); Calcium 9.5 mg/dL (8.5-10.5); Carbon Dioxide 27 mmol/L (22-29); Chloride 102 mmol/L (98-107); Globulin 2.5 g/dL (1.3-4.6); Glomerular Filtration Rate 56.7 mL/min (90-130); Glucose 87 mg/dL (65-115); Osmolality Calculated 290 mOsm/kg (285-295); Potassium 3.5 mmol/L (3.5-5.1); Sodium 139 mmol/L (136-145); Total Bilirubin 0.3 mg/dL (0.15-1.2); Total Protein 5.3 g/dL (6.6-8.7)
[2023-12-20] MEDS: acetaminophen 325 mg Tablet 650 MG PO (09:18)
[2023-12-20] MEDS: diphenhydrAMINE 25 mg Capsule PO (09:19)
[2023-12-20] MEDS: sodium chloride 0.9% 250 ML 75 ML IV (09:20)
[2023-12-20 09:45] VITALS: BP 125/81; PULSE 94; RESP 18; TEMP 37.3; O2SAT 96
[2023-12-20 10:00] VITALS: BP 138/88; PULSE 94; RESP 17; RESP 18; TEMP 37.2; O2SAT 96
[2023-12-20 10:15] VITALS: BP 136/85; PULSE 94; RESP 18; TEMP 37.2; O2SAT 96
[2023-12-20 11:55] VITALS: BP 144/78; BP 149/85; PULSE 90; PULSE 92; RESP 18; TEMP 37; TEMP 37.1; O2SAT 94; O2SAT 96
[2023-12-20 13:50] VITALS: BP 138/83; PULSE 91; RESP 18; TEMP 36.9; O2SAT 97
[2023-12-20 16:31] VITALS: BP 148/78; PULSE 67; RESP 18; TEMP 36.6; O2SAT 98
[2023-12-26 09:46] LABS: Basophils % 0.7 %; Eosinophils % 0.5 %; Hematocrit 32.8 % (36-47); Lymphocytes # 0.3 10^3/uL (0.8-4.8); Lymphocytes % 6.7 %; Mean Corpuscular Hemoglobin 28.9 pg (27-33); Mean Corpuscular Volume 90.4 fl (85-98); Monocytes # 0.4 10^3/uL (0.2-0.9); Monocytes % 9.3 %; Neutrophils # 3.55 10^3/uL (1.8-7.7); Neutrophils % 82.3 %; Nucleated Red Blood Cells % 0 %; Platelet Count 139 10^3/cmm (157-399); Red Blood Count 3.63 10^6/uL (3.85-5.65); Red Cell Distribution Width 17.3 % (12.1-15.1); White Blood Count 4.31 10^3/uL (3.29-11.43)
[2023-12-26 10:07] LABS: Alanine Aminotransferase 11 U/L (0-33); Albumin Level 2.9 g/dL (3.5-5.2); Alkaline Phosphatase 89 U/L (35-105); Anion Gap 10.8 (5-19); Aspartate Amino Transferase 21 U/L (0-32); Blood Urea Nitrogen 14 mg/dL (6-20); Calcium 9.1 mg/dL (8.5-10.5); Carbon Dioxide 27 mmol/L (22-29); Chloride 105 mmol/L (98-107); Creatinine Clr Calc Pharmacy 66.5335; Globulin 2.3 g/dL (1.3-4.6); Glomerular Filtration Rate 73.4 mL/min (90-130); Glucose 105 mg/dL (65-115); Osmolality Calculated 291 mOsm/kg (285-295); Sodium 140 mmol/L (136-145); Total Bilirubin 0.4 mg/dL (0.15-1.2); Total Protein 5.2 g/dL (6.6-8.7)
[2023-12-26 10:11] LABS: Potassium 2.8 mmol/L (3.5-5.1)
[2023-12-26] MEDS: potassium chloride 40 MEQ in sodium chloride 0.9% 500 ML 260 MEQ IV (11:47)
[2023-12-26] MEDS: sodium chloride 0.9% 250 ML 75 ML IV (14:05)
[2023-12-26] MEDS: palonosetron 0.25 mg/5 mL SDV IVP (14:06)
[2023-12-26] MEDS: gemcitabine 1,600 MG in sodium chloride 0.9% (100 ml) 100 ML 284.160000000000025 MG IV (14:27)
[2024-01-05 11:30] VITALS: BP 169/99; PULSE 92; RESP 17; TEMP 36.7; O2SAT 95
[2024-01-05 12:12] LABS: Basophils % 0.4 %; Eosinophils % 0.7 %; Hematocrit 28.9 % (36-47); Lymphocytes # 0.3 10^3/uL (0.8-4.8); Lymphocytes % 9.6 %; Mean Corpuscular HGB Conc 31.1 g/dL (30-55); Mean Corpuscular Hemoglobin 29.4 pg (27-33); Mean Corpuscular Volume 94.4 fl (85-98); Mean Platelet Volume 10.2 fL (7.4-10.4); Monocytes # 0.5 10^3/uL (0.2-0.9); Monocytes % 19.1 %; Neutrophils # 1.86 10^3/uL (1.8-7.7); Neutrophils % 68.4 %; Nucleated Red Blood Cells % 0 %; Platelet Count 106 10^3/cmm (157-399); Red Blood Count 3.06 10^6/uL (3.85-5.65); Red Cell Distribution Width 18.3 % (12.1-15.1); White Blood Count 2.72 10^3/uL (3.29-11.43)
[2024-01-05 12:30] LABS: Alanine Aminotransferase 6 U/L (0-33); Albumin Level 2.9 g/dL (3.5-5.2); Alkaline Phosphatase 108 U/L (35-105); Anion Gap 13.3 (5-19); Aspartate Amino Transferase 16 U/L (0-32); Blood Urea Nitrogen 18 mg/dL (6-20); Calcium 9.1 mg/dL (8.5-10.5); Carbon Dioxide 28 mmol/L (22-29); Chloride 105 mmol/L (98-107); Globulin 2.7 g/dL (1.3-4.6); Glomerular Filtration Rate 50.8 mL/min (90-130); Glucose 85 mg/dL (65-115); Osmolality Calculated 295 mOsm/kg (285-295); Potassium 4.3 mmol/L (3.5-5.1); Sodium 142 mmol/L (136-145); Total Bilirubin 0.3 mg/dL (0.15-1.2); Total Protein 5.6 g/dL (6.6-8.7)
[2024-01-05 12:31] LABS: Creatinine Clr Calc Pharmacy 48.9398
== END 2024-01-07 23:59 | disposition home or self-care (01) ==
PROVIDERS: Internal Medicine Medical Oncology; PCP Internal Medicine; Visit Provider Radiology Radiation Oncology
DX: C56.9 Malignant neoplasm of unspecified ovary (principal); Z53.9 Procedure and treatment not carried out, unspecified reason; D64.9 Anemia, unspecified
CPT/HCPCS: 36430; 36591; 80053; 85025; 86850; 86900; 86920; 96366; 96367; 96372; 96375; 96413; J0897; J1100; J1642; J2405; J2469; J3480; J7030; J7040; J7050; J9201; P9016

== ENCOUNTER 2024-02-06 08:51 | Oncology outpatient (recurring) (ONCR) | payer MEDICAID, SELFPAY ==
[2024-01-09 09:51] LABS: Basophils % 0.4 %; Eosinophils % 0.6 %; Hematocrit 29.7 % (36-47); Lymphocytes # 0.3 10^3/uL (0.8-4.8); Lymphocytes % 6.5 %; Mean Corpuscular Hemoglobin 29.5 pg (27-33); Mean Corpuscular Volume 95.2 fl (85-98); Mean Platelet Volume 9.2 fL (7.4-10.4); Monocytes # 0.7 10^3/uL (0.2-0.9); Monocytes % 13.7 %; Neutrophils # 4.06 10^3/uL (1.8-7.7); Neutrophils % 76.9 %; Nucleated Red Blood Cells % 0 %; Platelet Count 241 10^3/cmm (157-399); Red Blood Count 3.12 10^6/uL (3.85-5.65); Red Cell Distribution Width 18.8 % (12.1-15.1); White Blood Count 5.27 10^3/uL (3.29-11.43)
[2024-01-09] MEDS: ondansetron 2 mg/ML SDV 2 mL 8 MG IVP (11:08)
[2024-01-09] MEDS: sodium chloride 0.9% 250 ML 75 ML IV (11:08)
[2024-01-09] MEDS: gemcitabine 1,600 MG in sodium chloride 0.9% (100 ml) 100 ML 284.160000000000025 MG IV (12:16)
[2024-01-09 13:03] VITALS: BP 145/86; PULSE 95; RESP 18; TEMP 36.7; O2SAT 94
[2024-01-16 10:27] LABS: Basophils % 0.5 %; Hematocrit 26.9 % (36-47); Lymphocytes # 0.4 10^3/uL (0.8-4.8); Lymphocytes % 9.4 %; Mean Corpuscular HGB Conc 30.9 g/dL (30-55); Mean Corpuscular Hemoglobin 29.1 pg (27-33); Mean Corpuscular Volume 94.4 fl (85-98); Mean Platelet Volume 9.1 fL (7.4-10.4); Monocytes # 0.5 10^3/uL (0.2-0.9); Monocytes % 13.8 %; Neutrophils # 2.81 10^3/uL (1.8-7.7); Neutrophils % 71.7 %; Nucleated Red Blood Cells % 0.8 %; Platelet Count 251 10^3/cmm (157-399); Red Blood Count 2.85 10^6/uL (3.85-5.65); Red Cell Distribution Width 18.2 % (12.1-15.1); White Blood Count 3.92 10^3/uL (3.29-11.43)
[2024-01-16 10:47] LABS: Alanine Aminotransferase 8 U/L (0-33); Alkaline Phosphatase 95 U/L (35-105); Anion Gap 13.9 (5-19); Aspartate Amino Transferase 16 U/L (0-32); Blood Urea Nitrogen 16 mg/dL (6-20); Calcium 8.3 mg/dL (8.5-10.5); Carbon Dioxide 25 mmol/L (22-29); Chloride 104 mmol/L (98-107); Globulin 2.8 g/dL (1.3-4.6); Glomerular Filtration Rate 50.8 mL/min (90-130); Glucose 81 mg/dL (65-115); Osmolality Calculated 288 mOsm/kg (285-295); Potassium 3.9 mmol/L (3.5-5.1); Sodium 139 mmol/L (136-145); Total Bilirubin 0.2 mg/dL (0.15-1.2); Total Protein 5.8 g/dL (6.6-8.7)
[2024-01-16 10:56] LABS: Creatinine Clr Calc Pharmacy 49.1172
[2024-01-23 09:53] LABS: Basophils % 0.3 %; Eosinophils # 0.1 10^3/uL (0.0-0.8); Eosinophils % 0.7 %; Hematocrit 26.4 % (36-47); Lymphocytes # 0.3 10^3/uL (0.8-4.8); Lymphocytes % 4.2 %; Mean Corpuscular HGB Conc 30.3 g/dL (30-55); Mean Corpuscular Hemoglobin 29.6 pg (27-33); Mean Corpuscular Volume 97.8 fl (85-98); Mean Platelet Volume 9.9 fL (7.4-10.4); Monocytes # 0.7 10^3/uL (0.2-0.9); Monocytes % 9.4 %; Neutrophils # 6.34 10^3/uL (1.8-7.7); Neutrophils % 84.2 %; Nucleated Red Blood Cells % 0 %; Platelet Count 298 10^3/cmm (157-399); Red Cell Distribution Width 19.8 % (12.1-15.1); White Blood Count 7.53 10^3/uL (3.29-11.43)
[2024-01-23 10:23] LABS: Alanine Aminotransferase < 5 U/L (0-33); Albumin Level 2.8 g/dL (3.5-5.2); Alkaline Phosphatase 103 U/L (35-105); Anion Gap 15.7 (5-19); Aspartate Amino Transferase 13 U/L (0-32); Blood Urea Nitrogen 18 mg/dL (6-20); Calcium 8.4 mg/dL (8.5-10.5); Carbon Dioxide 25 mmol/L (22-29); Chloride 104 mmol/L (98-107); Globulin 3.1 g/dL (1.3-4.6); Glomerular Filtration Rate 50.8 mL/min (90-130); Glucose 115 mg/dL (65-115); Osmolality Calculated 295 mOsm/kg (285-295); Potassium 3.7 mmol/L (3.5-5.1); Sodium 141 mmol/L (136-145); Total Bilirubin 0.2 mg/dL (0.15-1.2); Total Protein 5.9 g/dL (6.6-8.7)
[2024-01-23] MEDS: sodium chloride 0.9% 250 ML 75 ML IV (11:21)
[2024-01-23] MEDS: palonosetron 0.25 mg/5 mL SDV IVP (11:25)
[2024-01-23] MEDS: gemcitabine 1,600 MG in sodium chloride 0.9% (100 ml) 100 ML 284.160000000000025 MG IV (12:04)
[2024-01-23 12:53] VITALS: BP 106/69; PULSE 87; TEMP 37; O2SAT 94
[2024-01-24] VITALS (11 sets, daily range): BP systolic 108–153; BP diastolic 64–92; PULSE 79–91; RESP 18; TEMP 36–36.9; O2SAT 95–99
[2024-01-24] MEDS: diphenhydrAMINE 25 mg Capsule PO (10:28)
[2024-01-24] MEDS: acetaminophen 325 mg Tablet 650 MG PO (10:28)
[2024-01-24] MEDS: sodium chloride 0.9% 250 mL Bag IV (10:32)
[2024-01-30 10:01] LABS: Hematocrit 33.7 % (36-47); Mean Corpuscular HGB Conc 31.5 g/dL (30-55); Mean Corpuscular Hemoglobin 29.4 pg (27-33); Mean Corpuscular Volume 93.6 fl (85-98); Platelet Count 244 10^3/cmm (157-399); Red Cell Distribution Width 17.7 % (12.1-15.1); White Blood Count 6.01 10^3/uL (3.29-11.43)
[2024-01-30 10:16] LABS: Alanine Aminotransferase 14 U/L (0-33); Alkaline Phosphatase 99 U/L (35-105); Anion Gap 13.2 (5-19); Aspartate Amino Transferase 22 U/L (0-32); Blood Urea Nitrogen 19 mg/dL (6-20); Calcium 9.2 mg/dL (8.5-10.5); Carbon Dioxide 26 mmol/L (22-29); Chloride 104 mmol/L (98-107); Creatinine Clr Calc Pharmacy 54.1807; Globulin 2.9 g/dL (1.3-4.6); Glomerular Filtration Rate 56.7 mL/min (90-130); Glucose 84 mg/dL (65-115); Osmolality Calculated 289 mOsm/kg (285-295); Potassium 4.2 mmol/L (3.5-5.1); Sodium 139 mmol/L (136-145); Total Bilirubin 0.2 mg/dL (0.15-1.2); Total Protein 5.9 g/dL (6.6-8.7)
[2024-01-30 10:37] LABS: Slide Review Slide Review Perform
[2024-01-30 10:38] LABS: Absolute Neutrophil 4.4 10^3/cmm (1.4-6.5); Absolute Segmented Neutrophil 4.3 10/cmm (1.6-7.1); Anisocytosis Trace; Band Neutrophils Absolute 0.2 10^3/cmm (0.0-1.2); Eosinophils 0 %; Lymphocytes 9 %; Lymphocytes Absolute 0.5 10^3/cmm (1.2-3.4); Monocytes Absolute 0.6 10^3/cmm (0.1-0.6); Platelet Estimate Normal (Normal); Polychromasia Trace; Segmented Neutrophils 71 %; Total Cells Counted 100 (0-100)
[2024-02-06 09:11] LABS: Basophils # 0.1 10^3/uL (0.0-0.1); Basophils % 0.5 %; Eosinophils # 0.1 10^3/uL (0.0-0.8); Hematocrit 31.8 % (36-47); Lymphocytes # 0.4 10^3/uL (0.8-4.8); Lymphocytes % 3.2 %; Mean Corpuscular HGB Conc 31.1 g/dL (30-55); Mean Corpuscular Hemoglobin 29.9 pg (27-33); Mean Corpuscular Volume 96.1 fl (85-98); Mean Platelet Volume 9.9 fL (7.4-10.4); Monocytes # 1.1 10^3/uL (0.2-0.9); Neutrophils # 9.23 10^3/uL (1.8-7.7); Neutrophils % 83.5 %; Nucleated Red Blood Cells % 0 %; Platelet Count 296 10^3/cmm (157-399); Red Blood Count 3.31 10^6/uL (3.85-5.65); Red Cell Distribution Width 17.3 % (12.1-15.1); White Blood Count 11.05 10^3/uL (3.29-11.43)
[2024-02-06 09:36] LABS: Alanine Aminotransferase 8 U/L (0-33); Albumin Level 3.1 g/dL (3.5-5.2); Alkaline Phosphatase 180 U/L (35-105); Anion Gap 13.1 (5-19); Aspartate Amino Transferase 19 U/L (0-32); Blood Urea Nitrogen 19 mg/dL (6-20); Calcium 8.4 mg/dL (8.5-10.5); Carbon Dioxide 26 mmol/L (22-29); Chloride 99 mmol/L (98-107); Glomerular Filtration Rate 41.9 mL/min (90-130); Glucose 107 mg/dL (65-115); Osmolality Calculated 281 mOsm/kg (285-295); Potassium 4.1 mmol/L (3.5-5.1); Sodium 134 mmol/L (136-145); Total Bilirubin 0.4 mg/dL (0.15-1.2); Total Protein 6.1 g/dL (6.6-8.7)
[2024-02-06 09:37] LABS: Creatinine Clr Calc Pharmacy 41.6775
[2024-02-06] MEDS: sodium chloride 0.9% 250 ML 75 ML IV (11:25)
[2024-02-06] MEDS: ondansetron 2 mg/ML SDV 2 mL 8 MG IVP (11:27)
[2024-02-06] MEDS: gemcitabine 1,600 MG in sodium chloride 0.9% (100 ml) 100 ML 284.160000000000025 MG IV (11:52)
[2024-02-06 12:21] VITALS: BP 92/59; PULSE 73; TEMP 36.3; O2SAT 90
[2024-02-06 13:02] LABS: CA 125 63.5 U/mL (0-35)
== END 2024-02-06 23:59 | disposition home or self-care (01) ==
PROVIDERS: Internal Medicine Medical Oncology; Nurse Practitioner Family; PCP Internal Medicine; Visit Provider Radiology Radiation Oncology
DX: Z53.9 Procedure and treatment not carried out, unspecified reason (principal); C78.5 Secondary malignant neoplasm of large intestine and rectum; C78.6 Secondary malignant neoplasm of retroperitoneum and peritoneum; Z85.43 Personal history of malignant neoplasm of ovary; Z90.710 Acquired absence of both cervix and uterus; Z90.79 Acquired absence of other genital organ(s); Z90.722 Acquired absence of ovaries, bilateral; I82.402 Acute embolism and thrombosis of unspecified deep veins of left lower extremity; I26.99 Other pulmonary embolism without acute cor pulmonale; Z79.899 Other long term (current) drug therapy; Z51.11 Encounter for antineoplastic chemotherapy; Z93.3 Colostomy status
CPT/HCPCS: 36430; 36591; 80053; 85007; 85025; 86304; 86850; 86900; 86920; 96367; 96375; 96413; J1100; J1642; J2405; J2469; J7050; J9201; P9040

== ENCOUNTER 2024-03-05 09:08 | Oncology outpatient (recurring) (ONCR) | payer MEDICAID, SELFPAY ==
[2024-02-29] MEDS: iohexol 350 mg/mL 500 mL Btl (per mL) PO (15:34)
--- NOTE | 2024-02-29 16:30 | CTR_ITS ---
PROCEDURE INFORMATION: Exam: CT Chest With Contrast; Diagnostic Exam date and time: 02/29/2024 4:28 PM Age: 58 years old Clinical indication: Condition or disease; Prior surgery; Surgery date: 6+ months; Surgery type: Port, gb, tubal, hyst, colon; Patient HX: Follow up ovarian cancer, left side abominal pain/swelling; Additional info: Surveillance, increasing tumor marker TECHNIQUE: Imaging protocol: Diagnostic computed tomography of the chest with contrast. Radiation optimization: All CT scans at this facility use at least one of these dose optimization techniques: automated exposure control; mA and/or kV adjustment per patient size (includes targeted exams where dose is matched to clinical indication); or iterative reconstruction. Contrast material: OMNI 350; Contrast volume: 100 ml; Contrast route: INTRAVENOUS (IV); COMPARISON: CT angio chest PE protcl [id number] 11/17/2023 3:23 PM RADIATION DOSE METRICS: Total DLP (mGy-cm): 711.62 FINDINGS: Lungs: Small pulmonary nodules are now present, the largest 8 mm on the right (4-22). Pleural spaces: A small left pleural effusion has developed. Heart: Unremarkable. No cardiomegaly. No pericardial effusion. Lymph nodes: Developing mediastinal and bilateral hilar adenopathy. The largest lymph node is at 10:00 a.m. to the trachea and currently measures 13 mm in short axis dimension. Previously 4 mm. Vasculature: Unremarkable. No aortic aneurysm. Bones/joints: Unremarkable. No acute fracture. Soft tissues: Unremarkable. PROCEDURE INFORMATION: Exam: CT Abdomen And Pelvis With Contrast Exam date and time: 02/29/2024 4:28 PM Age: 58 years old Clinical indication: Condition or disease; Prior surgery; Surgery date: 6+ months; Surgery type: Port, gb, tubal, hyst, colon; Patient HX: Follow up ovarian cancer, left side abominal pain/swelling; Additional info: Surveillance, increasing tumor marker TECHNIQUE: Imaging protocol: Computed tomography of the abdomen and pelvis with contrast. Radiation optimization: All CT scans at this facility use at least one of these dose optimization techniques: automated exposure control; mA and/or kV adjustment per patient size (includes targeted exams where dose is matched to clinical indication); or iterative reconstruction. Contrast material: OMNI 350; Contrast volume: 100 ml; Contrast route: INTRAVENOUS (IV); COMPARISON: CT kidney stone [id number] 11/17/2023 3:55 PM RADIATION DOSE METRICS: Total DLP (mGy-cm): 711.62 FINDINGS: Liver: Numerous hepatic metastasis have developed, the largest in the inferior right lobe of the liver measuring 4.2 cm in size. Gallbladder and bile ducts: Normal. No calcified stones. No ductal dilation. Pancreas: Normal. No ductal dilation. Spleen: Normal. No splenomegaly. Adrenal glands: Normal. No mass. Kidneys and ureters: The large invasive mass extending from the lower pole of the left kidney into the ilopsoas complex is smaller than before and contains extensive areas of diminished attenuation signifying necrosis. It currently measures approximately 12 x 13 x 15 cm in size, previously 18 x 16 x 8 cm. The subcapsular hematoma involving the left kidney is of more homogeneous density than before but unchanged in size. There remains compression deformity of the left kidney and Left hydronephrosis is now present. Stomach and bowel: Left lower quadrant colostomy. Appendix: No evidence of appendicitis. Intraperitoneal space: There is minimal free fluid within the abdomen and pelvis. Peritoneal nodules are seen more conspicuous than before. Vasculature: IVC filter. Lymph nodes: Moderate mesenteric adenopathy has improved but persists, the largest lymph node is currently 4.2 cm in maximum dimension versus 5.1 cm previously. Urinary bladder: Unremarkable as visualized. Reproductive: Unremarkable as visualized. Bones/joints: Unremarkable. No acute fracture. Soft tissues: Unremarkable. CT/CT chest abdpel w/*[id number] IMPRESSION: Developing intrathoracic metastases. IMPRESSION: 1. The large left ileus psoas mass is smaller and more necrotic than before. Bone 2. Slightly improving mesenteric adenopathy. 3. Extensive hepatic metastasis are now visible. Developing left hydronephrosis. COMMENTS: For patients with an IVC filter, recommend assessment for a management plan for the patient's IVC filter. If there is no established management plan, recommend referral to an interventional clinician on a nonemergent basis for evaluation.
[2024-02-29] MEDS: iohexol 350 mg/mL 500 mL Btl (per mL) IV (16:40)
--- NOTE | 2024-03-01 13:15 | USCV_ITS ---
Genny Diaz Age: 58 Gender: F : 1965 Exam Date: 03/01/2024 13:20 Ordering Phys: Chantelle Diego APRN Technologist: TREASURE Exam Location: [facility] [place] Indication: LE PAIN. LT LE EDEMA. Known DVT in LT. Pt cant take anticoags due to perinephrenic bleed HISTORY: Lower extremity pain. Lower extremity edema. LT DVT in november 2023 PROCEDURES: Comparison:. 11/17/23. Venous duplex imaging was performed in bilateral lower extremities. The following venous structures were evaluated: common femoral vein, profunda vein, proximal portion of the greater saphenous vein, superficial femoral vein, and the popliteal vein. In addition, the posterior tibial and peroneal trunk were evaluated. Serial compression, augmentation maneuvers, and spectral Doppler flow evaluation were performed. FINDINGS: No DVT on the right. Persistent but improved DVT left common through popliteal vein. Still occlusive DVT in some locations. CONCLUSIONS Persistent but improving left DVT. No right DVT. Dr. Marialuisa Jon DO (Electronically Signed) Final Date: 01 Mar 2024 14:25 S
[2024-03-05 09:27] LABS: Basophils # 0.1 10^3/uL (0.0-0.1); Basophils % 0.5 %; Eosinophils # 0.2 10^3/uL (0.0-0.8); Eosinophils % 1.1 %; Hematocrit 32.4 % (36-47); Lymphocytes # 0.3 10^3/uL (0.8-4.8); Lymphocytes % 2.2 %; Mean Corpuscular HGB Conc 30.9 g/dL (30-55); Mean Corpuscular Hemoglobin 29.2 pg (27-33); Mean Corpuscular Volume 94.7 fl (85-98); Mean Platelet Volume 9.1 fL (7.4-10.4); Monocytes # 1.1 10^3/uL (0.2-0.9); Monocytes % 7.3 %; Neutrophils # 12.27 10^3/uL (1.8-7.7); Neutrophils % 84.8 %; Nucleated Red Blood Cells % 0 %; Platelet Count 393 10^3/cmm (157-399); Red Blood Count 3.42 10^6/uL (3.85-5.65); White Blood Count 14.47 10^3/uL (3.29-11.43)
[2024-03-05 09:56] LABS: Alanine Aminotransferase 8 U/L (0-33); Albumin Level 2.8 g/dL (3.5-5.2); Alkaline Phosphatase 137 U/L (35-105); Anion Gap 15.4 (5-19); Aspartate Amino Transferase 16 U/L (0-32); Blood Urea Nitrogen 26 mg/dL (6-20); Calcium 7.6 mg/dL (8.5-10.5); Carbon Dioxide 21 mmol/L (22-29); Chloride 103 mmol/L (98-107); Creatinine Clr Calc Pharmacy 36.2363; Glomerular Filtration Rate 35.5 mL/min (90-130); Glucose 110 mg/dL (65-115); Osmolality Calculated 287 mOsm/kg (285-295); Potassium 3.4 mmol/L (3.5-5.1); Sodium 136 mmol/L (136-145); Total Bilirubin 0.3 mg/dL (0.15-1.2); Total Protein 5.8 g/dL (6.6-8.7)
== END 2024-03-06 19:21 | disposition home or self-care (01) ==
LOC: RAD 09:08 → ONCMED 03-06 18:48
PROVIDERS: PCP Internal Medicine; Visit Provider Nurse Practitioner Family
DX: Z53.9 Procedure and treatment not carried out, unspecified reason
CPT/HCPCS: 71260; 74177; 80053; 85025; 93970; J1642; Q9967

== ENCOUNTER 2024-03-06 08:49 | Oncology outpatient (recurring) (ONCR) | payer MEDICAID, SELFPAY ==
[2024-02-13 10:55] LABS: Hematocrit 29.2 % (36-47); Mean Corpuscular HGB Conc 31.2 g/dL (30-55); Mean Corpuscular Hemoglobin 30.2 pg (27-33); Mean Platelet Volume 9.1 fL (7.4-10.4); Platelet Count 291 10^3/cmm (157-399); Red Blood Count 3.01 10^6/uL (3.85-5.65); Red Cell Distribution Width 16.9 % (12.1-15.1); White Blood Count 5.53 10^3/uL (3.29-11.43)
[2024-02-13 11:18] LABS: Alanine Aminotransferase 6 U/L (0-33); Albumin Level 3.1 g/dL (3.5-5.2); Alkaline Phosphatase 123 U/L (35-105); Anion Gap 14.7 (5-19); Aspartate Amino Transferase 17 U/L (0-32); Blood Urea Nitrogen 17 mg/dL (6-20); Calcium 8.3 mg/dL (8.5-10.5); Carbon Dioxide 23 mmol/L (22-29); Chloride 108 mmol/L (98-107); Globulin 3.2 g/dL (1.3-4.6); Glomerular Filtration Rate 41.9 mL/min (90-130); Glucose 98 mg/dL (65-115); Osmolality Calculated 294 mOsm/kg (285-295); Potassium 4.7 mmol/L (3.5-5.1); Sodium 141 mmol/L (136-145); Total Bilirubin 0.2 mg/dL (0.15-1.2); Total Protein 6.3 g/dL (6.6-8.7)
[2024-02-13 11:53] LABS: Absolute Segmented Neutrophil 3.8 10/cmm (1.6-7.1); Band Neutrophils Absolute 0.2 10^3/cmm (0.0-1.2); Lymphocytes 6 %; Segmented Neutrophils 69 %; Slide Review Slide Review Perform; Total Cells Counted 100 (0-100)
[2024-02-13 11:54] LABS: Anisocytosis 1+; Basophils Absolute 0.1 10^3/cmm (0.0-0.2); Eosinophils 0 %; Giant Platelets Trace; Lymphocytes Absolute 0.3 10^3/cmm (1.2-3.4); Macrocytosis 1+; Monocytes Absolute 0.7 10^3/cmm (0.1-0.6); Platelet Estimate Normal (Normal); Polychromasia Trace
[2024-02-16] MEDS: sodium chloride 0.9% 1,000 ML 999 ML IV (09:39)
[2024-02-16 10:52] VITALS: BP 148/85; PULSE 65; RESP 17; TEMP 36.4; O2SAT 98
[2024-02-27 12:54] LABS: Basophils % 0.3 %; Eosinophils % 0.4 %; Hematocrit 26.2 % (36-47); Lymphocytes # 0.3 10^3/uL (0.8-4.8); Lymphocytes % 2.5 %; Mean Corpuscular HGB Conc 30.2 g/dL (30-55); Mean Corpuscular Hemoglobin 30.4 pg (27-33); Mean Corpuscular Volume 100.8 fl (85-98); Mean Platelet Volume 9.5 fL (7.4-10.4); Monocytes # 1.4 10^3/uL (0.2-0.9); Monocytes % 12.2 %; Neutrophils # 9.14 10^3/uL (1.8-7.7); Neutrophils % 82.7 %; Nucleated Red Blood Cells % 0 %; Platelet Count 414 10^3/cmm (157-399); Red Cell Distribution Width 17.4 % (12.1-15.1); White Blood Count 11.05 10^3/uL (3.29-11.43)
[2024-02-27 13:15] LABS: Alanine Aminotransferase < 5 U/L (0-33); Albumin Level 3.1 g/dL (3.5-5.2); Alkaline Phosphatase 122 U/L (35-105); Anion Gap 17.8 (5-19); Aspartate Amino Transferase 14 U/L (0-32); Blood Urea Nitrogen 37 mg/dL (6-20); Calcium 8.2 mg/dL (8.5-10.5); Carbon Dioxide 21 mmol/L (22-29); Chloride 105 mmol/L (98-107); Globulin 2.9 g/dL (1.3-4.6); Glomerular Filtration Rate 25.5 mL/min (90-130); Glucose 130 mg/dL (65-115); Osmolality Calculated 300 mOsm/kg (285-295); Potassium 3.8 mmol/L (3.5-5.1); Sodium 140 mmol/L (136-145); Total Bilirubin 0.3 mg/dL (0.15-1.2)
[2024-02-27] MEDS: sodium chloride 0.9% 1,000 ML 999 ML IV (15:06)
[2024-02-27 16:11] LABS: Magnesium 1.1 mg/dL (1.7-2.3)
[2024-02-27 16:12] VITALS: BP 139/79; PULSE 80; RESP 16; TEMP 36.4; O2SAT 95
[2024-02-28] VITALS (11 sets, daily range): BP systolic 110–144; BP diastolic 68–88; PULSE 70–79; RESP 16–18; TEMP 36.1–37.4; O2SAT 96–98
[2024-02-28] MEDS: acetaminophen 325 mg Tablet 650 MG PO (08:22)
[2024-02-28] MEDS: sodium chloride 0.9% 250 mL Bag IV (08:22)
[2024-02-28] MEDS: diphenhydrAMINE 25 mg Capsule PO (08:22)
--- NOTE | 2024-02-28 08:30 | PC.NURSE ---
Chantelle Diego, LANGUAGE THERAPIST at chairside, labs reviewed with patient. Order for vitamin D level to be drawn prior to transfusion and Magnesium 2gm IV to be given once blood transfusion is complete. Patient verbalized understanding and agrees to plan of care.
[2024-02-28 09:24] LABS: 25 Hydroxy Vitamin D 37 ng/mL (30-100)
[2024-02-28] MEDS: FUROsemide 10 mg/mL SDV 2mL 20 MG IVP (11:05)
[2024-02-28] MEDS: magnesium sulfate premix 2 GM/50 ML PIGGYBACK IV (13:34)
== END 2024-03-08 23:59 | disposition home or self-care (01) ==
PROVIDERS: Nurse Practitioner Family; PCP Internal Medicine; Visit Provider Radiology Radiation Oncology
DX: C78.6 Secondary malignant neoplasm of retroperitoneum and peritoneum (principal)
CPT/HCPCS: 36430; 36591; 71260; 74177; 80053; 82306; 83735; 85007; 85025; 86850; 86900; 86920; 93970; 96360; 96365; 96375; 96523; 99215; J1940; J3475; J7030; J7050; P9040; Q9967

== ENCOUNTER 2024-04-01 09:45 | Oncology outpatient (recurring) (ONCR) | payer MEDICAID, SELFPAY ==
[2024-03-13 10:52] LABS: Basophils # 0.1 10^3/uL (0.0-0.1); Basophils % 0.4 %; Eosinophils # 0.1 10^3/uL (0.0-0.8); Eosinophils % 0.6 %; Lymphocytes # 0.3 10^3/uL (0.8-4.8); Lymphocytes % 1.6 %; Mean Corpuscular HGB Conc 30.3 g/dL (30-55); Mean Corpuscular Hemoglobin 29.1 pg (27-33); Mean Platelet Volume 9.6 fL (7.4-10.4); Monocytes # 0.8 10^3/uL (0.2-0.9); Monocytes % 4.6 %; Neutrophils # 16.12 10^3/uL (1.8-7.7); Neutrophils % 89.7 %; Nucleated Red Blood Cells % 0 %; Platelet Count 364 10^3/cmm (157-399); Red Blood Count 3.23 10^6/uL (3.85-5.65); Red Cell Distribution Width 16.2 % (12.1-15.1); White Blood Count 17.96 10^3/uL (3.29-11.43)
[2024-03-13 11:10] LABS: Alanine Aminotransferase 9 U/L (0-33); Albumin Level 2.8 g/dL (3.5-5.2); Alkaline Phosphatase 141 U/L (35-105); Anion Gap 17.1 (5-19); Aspartate Amino Transferase 16 U/L (0-32); Blood Urea Nitrogen 31 mg/dL (6-20); Calcium 8.2 mg/dL (8.5-10.5); Carbon Dioxide 20 mmol/L (22-29); Chloride 106 mmol/L (98-107); Globulin 2.7 g/dL (1.3-4.6); Glomerular Filtration Rate 30.8 mL/min (90-130); Glucose 110 mg/dL (65-115); Osmolality Calculated 295 mOsm/kg (285-295); Potassium 4.1 mmol/L (3.5-5.1); Sodium 139 mmol/L (136-145); Total Bilirubin 0.2 mg/dL (0.15-1.2); Total Protein 5.5 g/dL (6.6-8.7)
[2024-03-18 08:51] LABS: Basophils # 0.1 10^3/uL (0.0-0.1); Basophils % 0.3 %; Eosinophils # 0.1 10^3/uL (0.0-0.8); Eosinophils % 0.4 %; Hematocrit 27.6 % (36-47); Lymphocytes # 0.3 10^3/uL (0.8-4.8); Lymphocytes % 1.6 %; Mean Corpuscular HGB Conc 30.8 g/dL (30-55); Mean Corpuscular Hemoglobin 29.7 pg (27-33); Mean Corpuscular Volume 96.5 fl (85-98); Mean Platelet Volume 9.6 fL (7.4-10.4); Monocytes # 1.4 10^3/uL (0.2-0.9); Monocytes % 7.8 %; Nucleated Red Blood Cells % 0 %; Platelet Count 325 10^3/cmm (157-399); Red Blood Count 2.86 10^6/uL (3.85-5.65); Red Cell Distribution Width 16.5 % (12.1-15.1); White Blood Count 17.63 10^3/uL (3.29-11.43)
[2024-03-18 09:27] LABS: Alanine Aminotransferase 9 U/L (0-33); Albumin Level 3.1 g/dL (3.5-5.2); Alkaline Phosphatase 171 U/L (35-105); Anion Gap 18.1 (5-19); Aspartate Amino Transferase 21 U/L (0-32); Blood Urea Nitrogen 35 mg/dL (6-20); CA 125 69.2 U/mL (0-35); Calcium 8.7 mg/dL (8.5-10.5); Carbon Dioxide 20 mmol/L (22-29); Chloride 101 mmol/L (98-107); Globulin 2.8 g/dL (1.3-4.6); Glomerular Filtration Rate 25.5 mL/min (90-130); Glucose 126 mg/dL (65-115); Osmolality Calculated 290 mOsm/kg (285-295); Potassium 4.1 mmol/L (3.5-5.1); Sodium 135 mmol/L (136-145); Total Bilirubin 0.3 mg/dL (0.15-1.2); Total Protein 5.9 g/dL (6.6-8.7)
[2024-03-19] MEDS: sodium chloride 0.9% 1,000 ML 999 ML IV (09:12)
[2024-03-19 10:40] VITALS: BP 129/68; PULSE 78; RESP 18; TEMP 36.6; O2SAT 98
--- NOTE | 2024-03-19 11:30 | USCV_ITS ---
Genny Diaz Age: 58 Gender: F : 1965 Exam Date: 03/19/2024 10:04 Ordering Phys: Chantelle Diego APRN Technologist: DONNA Exam Location: [facility] [place] Indication: LLE PAIN AND SWELLING. H/O DVT. HAS IVC FILTER HISTORY: Lower extremity swelling. Lower extremity pain. History of deep venous thrombosis. Has IVC filter PROCEDURES: Venous duplex imaging was performed in only the left lower extremity. The following venous structures were evaluated: common femoral vein, profunda vein, proximal portion of the greater saphenous vein, superficial femoral vein, and the popliteal vein. In addition, the posterior tibial and peroneal trunk were evaluated. Serial compression, augmentation maneuvers, and spectral Doppler flow evaluation were performed. FINDINGS: + chronic old clot seen in Left CFV into Pop V All other veins appear patent Pre Cruz given to Dominga JURADO at Doctor's Office CONCLUSIONS Chronic thrombus LEFT CFV into popliteal vein Remainder LLE veins are patent Sonido Morales MD (Electronically Signed) Final Date: 19 March 2024 14:29 S
[2024-03-26 08:40] VITALS: BP 144/84; PULSE 84; RESP 16; TEMP 37.1; O2SAT 96
[2024-03-26] MEDS: sodium chloride 0.9% 1,000 ML 999 ML IV (08:59)
[2024-03-26 09:07] LABS: Basophils # 0.1 10^3/uL (0.0-0.1); Basophils % 0.5 %; Eosinophils # 0.2 10^3/uL (0.0-0.8); Eosinophils % 1.7 %; Lymphocytes # 0.2 10^3/uL (0.8-4.8); Lymphocytes % 2.5 %; Mean Corpuscular HGB Conc 29.6 g/dL (30-55); Mean Corpuscular Hemoglobin 29.1 pg (27-33); Mean Corpuscular Volume 98.2 fl (85-98); Mean Platelet Volume 9.5 fL (7.4-10.4); Monocytes # 0.1 10^3/uL (0.2-0.9); Monocytes % 1.5 %; Neutrophils # 8.82 10^3/uL (1.8-7.7); Neutrophils % 92.3 %; Nucleated Red Blood Cells % 0 %; Platelet Count 285 10^3/cmm (157-399); Red Blood Count 2.85 10^6/uL (3.85-5.65); Red Cell Distribution Width 16.4 % (12.1-15.1); White Blood Count 9.55 10^3/uL (3.29-11.43)
[2024-03-26 09:26] LABS: Alanine Aminotransferase 10 U/L (0-33); Alkaline Phosphatase 161 U/L (35-105); Anion Gap 16.7 (5-19); Aspartate Amino Transferase 25 U/L (0-32); Blood Urea Nitrogen 27 mg/dL (6-20); Calcium 8.2 mg/dL (8.5-10.5); Carbon Dioxide 20 mmol/L (22-29); Chloride 104 mmol/L (98-107); Glucose 126 mg/dL (65-115); Osmolality Calculated 289 mOsm/kg (285-295); Potassium 4.7 mmol/L (3.5-5.1); Sodium 136 mmol/L (136-145); Total Bilirubin 0.2 mg/dL (0.15-1.2)
[2024-03-26 10:52] VITALS: BP 159/90; PULSE 73; TEMP 36.4; O2SAT 96
[2024-03-28 12:58] LABS: Basophils % 0.4 %; Eosinophils % 0.4 %; Lymphocytes # 0.1 10^3/uL (0.8-4.8); Lymphocytes % 1.2 %; Mean Corpuscular HGB Conc 30.4 g/dL (30-55); Mean Corpuscular Hemoglobin 29.6 pg (27-33); Mean Corpuscular Volume 97.5 fl (85-98); Mean Platelet Volume 9.6 fL (7.4-10.4); Monocytes # 0.1 10^3/uL (0.2-0.9); Neutrophils # 9.56 10^3/uL (1.8-7.7); Neutrophils % 96.3 %; Nucleated Red Blood Cells % 0 %; Platelet Count 195 10^3/cmm (157-399); Red Blood Count 2.77 10^6/uL (3.85-5.65); Red Cell Distribution Width 16.2 % (12.1-15.1); White Blood Count 9.93 10^3/uL (3.29-11.43)
[2024-03-28 13:17] LABS: Alanine Aminotransferase 7 U/L (0-33); Albumin Level 3.1 g/dL (3.5-5.2); Alkaline Phosphatase 164 U/L (35-105); Anion Gap 13.9 (5-19); Aspartate Amino Transferase 28 U/L (0-32); Blood Urea Nitrogen 20 mg/dL (6-20); Calcium 7.9 mg/dL (8.5-10.5); Carbon Dioxide 22 mmol/L (22-29); Chloride 107 mmol/L (98-107); Globulin 2.6 g/dL (1.3-4.6); Glomerular Filtration Rate 38.5 mL/min (90-130); Glucose 98 mg/dL (65-115); Osmolality Calculated 289 mOsm/kg (285-295); Potassium 4.9 mmol/L (3.5-5.1); Sodium 138 mmol/L (136-145); Total Bilirubin 0.3 mg/dL (0.15-1.2); Total Protein 5.7 g/dL (6.6-8.7)
[2024-03-28] MEDS: acetaminophen 325 mg Tablet 650 MG PO (13:57)
[2024-03-28] MEDS: diphenhydrAMINE 25 mg Capsule PO (13:57)
[2024-03-28] MEDS: sodium chloride 0.9% 250 mL Bag IV (13:59)
[2024-03-28 15:30] VITALS: BP 166/93; PULSE 92; O2SAT 96
[2024-03-28 15:45] VITALS: BP 154/93; PULSE 88; TEMP 36.2; O2SAT 96
[2024-03-28] MEDS: ondansetron 4 MG Tablet 8 MG PO (15:50)
[2024-03-28 16:00] VITALS: BP 177/103; PULSE 89; TEMP 36.8; O2SAT 97
[2024-03-28 16:30] VITALS: BP 171/94; PULSE 85; RESP 17; TEMP 36.3; O2SAT 96
[2024-03-28 17:30] VITALS: BP 172/100; PULSE 82; RESP 18; TEMP 36.6; O2SAT 98
[2024-03-29] MEDS: sodium chloride 0.9% 250 mL Bag IV (09:11)
[2024-03-29] MEDS: diphenhydrAMINE 25 mg Capsule PO (09:11)
[2024-03-29] MEDS: acetaminophen 325 mg Tablet 650 MG PO (09:11)
[2024-03-29 09:15] VITALS: BP 149/86; PULSE 92; RESP 16; TEMP 36.9; O2SAT 96
[2024-03-29 09:25] VITALS: BP 149/86; PULSE 92; RESP 16; TEMP 36.9; O2SAT 96
[2024-03-29 09:40] VITALS: BP 151/87; PULSE 91; RESP 16; TEMP 36.7; O2SAT 95
[2024-03-29 09:55] VITALS: BP 155/93; PULSE 91; RESP 16; TEMP 36.9; O2SAT 95
[2024-03-29 10:55] VITALS: BP 163/97; PULSE 87; RESP 16; O2SAT 96
[2024-03-29 11:30] VITALS: BP 160/92; PULSE 87; RESP 16; O2SAT 97
[2024-04-01 09:24] LABS: Basophils % 0.5 %; Eosinophils # 0.1 10^3/uL (0.0-0.8); Eosinophils % 1.4 %; Hematocrit 35.4 % (36-47); Lymphocytes # 0.2 10^3/uL (0.8-4.8); Lymphocytes % 2.7 %; Mean Corpuscular HGB Conc 31.1 g/dL (30-55); Mean Corpuscular Hemoglobin 29.4 pg (27-33); Mean Corpuscular Volume 94.7 fl (85-98); Mean Platelet Volume 10.9 fL (7.4-10.4); Monocytes # 0.1 10^3/uL (0.2-0.9); Monocytes % 1.2 %; Neutrophils # 7.23 10^3/uL (1.8-7.7); Neutrophils % 93.6 %; Nucleated Red Blood Cells % 0 %; Platelet Count 84 10^3/cmm (157-399); Red Blood Count 3.74 10^6/uL (3.85-5.65); Red Cell Distribution Width 17.3 % (12.1-15.1); White Blood Count 7.73 10^3/uL (3.29-11.43)
[2024-04-01 09:48] LABS: Alanine Aminotransferase 12 U/L (0-33); Alkaline Phosphatase 208 U/L (35-105); Anion Gap 16.4 (5-19); Aspartate Amino Transferase 32 U/L (0-32); Blood Urea Nitrogen 24 mg/dL (6-20); Calcium 7.9 mg/dL (8.5-10.5); Carbon Dioxide 22 mmol/L (22-29); Chloride 104 mmol/L (98-107); Globulin 2.7 g/dL (1.3-4.6); Glomerular Filtration Rate 41.9 mL/min (90-130); Glucose 82 mg/dL (65-115); Osmolality Calculated 289 mOsm/kg (285-295); Potassium 4.4 mmol/L (3.5-5.1); Sodium 138 mmol/L (136-145); Total Bilirubin 0.6 mg/dL (0.15-1.2); Total Protein 5.7 g/dL (6.6-8.7)
--- NOTE | 2024-04-01 12:03 | XR_ITS ---
WS: [id number] Exam: XR chest 2V* [id number] Date/Time of Exam: 04/01/2024 12:15 PM Reason For Exam: increased SOB and cough; r/o interstitial lung Comparison 11/17/2023. There are areas of plaque atelectasis and bilateral interstitial infiltrates in the mid and lower dasia g zones bilaterally. Small posterior pleural effusions are noted. Bony structures are intact. Heart s ize is normal. There appears to be some widening of the mediastinum. A LEFT subclavian port ends in t he lower one third of the SVC. IVC filter noted. XR/XR chest 2V* [id number] IMPRESSION: 1. Diffuse interstitial infiltrates throughout the mid and lower lung zones wit h areas of plaque atelectasis. 2. Small posterior bibasal pleural effusions. 3. Widening of the mediastinum apparently representing known mediastinal lympha denopathy.
== END 2024-04-07 23:59 | disposition home or self-care (01) ==
PROVIDERS: Internal Medicine Medical Oncology; Nurse Practitioner Family; PCP Internal Medicine; Visit Provider Radiology Radiation Oncology
DX: C56.9 Malignant neoplasm of unspecified ovary (principal); Z53.9 Procedure and treatment not carried out, unspecified reason; C78.6 Secondary malignant neoplasm of retroperitoneum and peritoneum; Z79.899 Other long term (current) drug therapy; J90 Pleural effusion, not elsewhere classified
CPT/HCPCS: 36430; 36591; 71046; 80053; 85025; 86304; 86850; 86900; 86902; 86920; 93971; 96360; J7030; J7050; P9016; P9040; Q0162

== ENCOUNTER 2024-04-01 12:18 | Outpatient (CLI) | payer MEDICAID, SELFPAY ==
--- NOTE | 2024-04-01 12:45 | US_ITS ---
WS: [id number] Exam: US renal BI* [id number] Date/Time of Exam: 04/01/2024 12:23 PM Reason For Exam: developing hydronephrosis on scan and increasing creatinine The RIGHT kidney is identified and is unremarkable with the exception of a 1.2 cm cyst. The RIGHT kid katie measures 11.5 x 4.4 x 5.1 cm. Cortical thickness of the RIGHT kidney is 1 cm. No RIGHT renal obst ruction. Evaluation of the LEFT renal fossa shows a large heterogeneous mass being partially solid and partial ly cystic. This mass extends from the renal fossa into the LEFT posterior pelvis. It is very difficul t to discern the LEFT kidney or LEFT renal collecting system. US/US renal BI* [id number] IMPRESSION: 1. Small RIGHT renal cyst. The RIGHT kidney and RIGHT renal collecting system i s otherwise unremarkable. 2. Large complex mass occupying the LEFT renal fossa extending into the posteri or LEFT pelvis. This mass is partially solid and partially cystic. The LEFT kid katie and LEFT renal collecting system are not discernible and may be compressed or displaced from anatomic location.
== END 2024-04-01 12:19 | disposition home or self-care (01) ==
LOC: RAD 12:18
PROVIDERS: PCP Internal Medicine; Visit Provider Nurse Practitioner Family
DX: R79.89 Other specified abnormal findings of blood chemistry (principal); N28.1 Cyst of kidney, acquired; N28.89 Other specified disorders of kidney and ureter
CPT/HCPCS: 76770

== ENCOUNTER 2024-04-08 10:31 | Oncology outpatient (recurring) (ONCR) | payer MEDICAID, SELFPAY ==
[2024-04-08 11:15] LABS: Basophils % 0.6 %; Eosinophils % 0.8 %; Lymphocytes # 0.2 10^3/uL (0.8-4.8); Mean Corpuscular HGB Conc 30.6 g/dL (30-55); Mean Corpuscular Hemoglobin 29.7 pg (27-33); Mean Corpuscular Volume 97.1 fl (85-98); Monocytes # 0.8 10^3/uL (0.2-0.9); Monocytes % 15.1 %; Neutrophils # 3.98 10^3/uL (1.8-7.7); Neutrophils % 79.9 %; Nucleated Red Blood Cells % 0 %; Platelet Count 132 10^3/cmm (157-399); Red Cell Distribution Width 17.7 % (12.1-15.1); White Blood Count 4.98 10^3/uL (3.29-11.43)
[2024-04-08 11:31] LABS: Alanine Aminotransferase 10 U/L (0-33); Albumin Level 2.9 g/dL (3.5-5.2); Alkaline Phosphatase 217 U/L (35-105); Anion Gap 17.5 (5-19); Aspartate Amino Transferase 29 U/L (0-32); Blood Urea Nitrogen 33 mg/dL (6-20); Calcium 8.4 mg/dL (8.5-10.5); Carbon Dioxide 22 mmol/L (22-29); Chloride 101 mmol/L (98-107); Globulin 2.8 g/dL (1.3-4.6); Glomerular Filtration Rate 30.8 mL/min (90-130); Glucose 100 mg/dL (65-115); Osmolality Calculated 289 mOsm/kg (285-295); Potassium 4.5 mmol/L (3.5-5.1); Sodium 136 mmol/L (136-145); Total Bilirubin 0.5 mg/dL (0.15-1.2); Total Protein 5.7 g/dL (6.6-8.7)
== END 2024-04-17 23:59 | disposition home or self-care (01) ==
PROVIDERS: Internal Medicine Medical Oncology; PCP Internal Medicine; Visit Provider Radiology Radiation Oncology
DX: C56.9 Malignant neoplasm of unspecified ovary (principal); C78.6 Secondary malignant neoplasm of retroperitoneum and peritoneum; Z79.899 Other long term (current) drug therapy; Z51.0 Encounter for antineoplastic radiation therapy
CPT/HCPCS: 36591; 77300; 77301; 77338; 80053; 85025; 86850; 86900

== ENCOUNTER 2024-04-14 10:25 | Inpatient (IN) | payer MEDICAID, SELFPAY ==
[2024-04-14 10:56] VITALS: BP 89/61; PULSE 133; RESP 18; TEMP 36.7; O2SAT 88
--- NOTE | 2024-04-14 11:15 | XRR_ITS ---
PROCEDURE INFORMATION: Exam: XR Chest Exam date and time: 04/14/2024 12:10 PM Age: 58 years old Clinical indication: Other: Possible sepsis TECHNIQUE: Imaging protocol: Radiologic exam of the chest. Views: 1 view. COMPARISON: CR XR chest 2V* [id number] 04/01/2024 12:22 PM FINDINGS: Tubes, catheters and devices: Left subclavian infusion port tip is in the superior cavoatrial junction. Lungs: Increase in the bilateral perihilar streaky airspace opacities, more pronounced on the left side. Pleural spaces: Unremarkable. No pleural effusion. No pneumothorax. Heart/Mediastinum: Unremarkable. No cardiomegaly. Bones/joints: Mild degenerative of bilateral acromioclavicular joints. Organs: Post cholecystectomy. XR/XR chest 1V portable [id number] IMPRESSION: Increase in the bilateral perihilar interstitial infiltrates.
--- NOTE | 2024-04-14 11:20 | ECG_ITS ---
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 Measurements Intervals [place] Rate: 131 P: 27 LA: 136 QRS: -14 QRSD: 72 T: 53 QT: 297 QTc: 439 Interpretive Statements SINUS TACHYCARDIA ANTEROSEPTAL MYOCARDIAL INFARCTION , OF INDETERMINATE AGE [40+ ms Q WAVE IN V1-V4] INFERIOR MYOCARDIAL INFARCTION OF INDETERMINATE AGE Compared to ECG 11/17/2023 12:12:35 ST (T wave) deviation now present Myocardial infarct finding still present Electronically Signed On 04-14-2024 19:27:26 CDT by Erick Pro M.D. [id number]
[2024-04-14 11:39] LABS: Basophils % 0.1 %; Hematocrit 41.3 % (36-47); Lymphocytes # 0.1 10^3/uL (0.8-4.8); Lymphocytes % 1.3 %; Mean Corpuscular HGB Conc 29.5 g/dL (30-55); Mean Corpuscular Volume 98.1 fl (85-98); Mean Platelet Volume 11.5 fL (7.4-10.4); Monocytes % 10.7 %; Neutrophils # 8.09 10^3/uL (1.8-7.7); Neutrophils % 85.2 %; Nucleated Red Blood Cells % 0.4 %; Platelet Count 203 10^3/cmm (157-399); Red Blood Count 4.21 10^6/uL (3.85-5.65); Red Cell Distribution Width 17.7 % (12.1-15.1)
--- NOTE | 2024-04-14 11:50 | ED_ITS ---
HPI - Weakness 2 General: Chief complaint: Weakness Stated complaint: dehydration, generalized weakness Time Seen by Provider: 04/14/24 10:29 Source: patient Mode of arrival: ambulatory Limitations: no limitations History of Present Illness: 58-year-old female has a history of stag e IV ovarian cancer. Patient's states that over the last few days she has been having some increased confusion has not been drinking as much she states that he feels she is getting dehydrated. She has been extremely weak denies any chest pain or fever Associated symptoms: Denies chest pain, chills, fever(s), headache(s), nausea or vomiting Review of Systems 2 Const: Reports: fatigue and malaise; Denies: fever(s), chills, body aches or change in appetite ENMT: Denies: throat pain or dental pain Card: Denies: chest pain Resp: Denies: dyspnea GI: Denies: abdominal pain, nausea, vomiting or diarrhea Musc: Denies: neck pain or back pain Skin/Breast: Denies: rash Neuro: Denies: headache(s) PFSH ED 2 PFSH: Medical History High risk medication use mirvetuximab (hypomagnesium) Perinephric hematoma Hypercalcemia of malignancy Acute kidney injury Pulmonary emboli Deep vein thrombosis of left lower extremity Ovarian cancer HTN (hypertension) Depression Anxiety Surgical History History of exploratory laparotomy (03/22/22) Low anterior resection with placement of end colostomy History of exploratory laparotomy (03/22/22) total abdominal hysterectomy/BSO, omentectomy, and maximal debulking of peritoneal carcinomatosis History of exploratory laparotomy (03/24/22) Exploratory laparotomy with left colon resection and revision of colostomy Port-A-Cath in place (12/20/21) left subclavian History of tubal ligation History of colonoscopy History of cholecystectomy Family History Mother Colon cancer Cancer Dementia Other Hypertension Denies family history of Diabetes CAD (coronary artery disease) Clotting disorder Hyperlipidemia Psychiatric illness Chronic kidney disease (CKD) Suicide Anesthesia complication Bleeding disorder Lung disease Stroke Social History Smoking and tobacco/nicotine status: never used tobacco/nicotine Alcohol intake: never Substance/Drug Use: never Physical Exam 2 Const: COMMON NORMALS: patient oriented x3 GENERAL APPEARANCE: ill appearing HENMT: COMMON NORMALS: normocephalic and atraumatic HEAD & SCALP: n ormocephalic and atraumatic Neck/C-Spine: COMMON NORMALS: full ROM and supple Chest: COMMONS NORMALS: normal inspection of the chest Resp: COMMON NORMALS: normal respiratory effort, No retractions, No use of accessory muscles and clear to auscultation bilaterally AUSCULTATION: clear to auscultation bilaterally Cardio: COMMON NORMALS: regular rhythm and No murmurs present (Cardio) R ATE: tachycardic RHYTHM: regular rhythm GI: COMMON NORMALS: Soft to palpation and no masses PALPATION: Yes Soft to palpation OTHER: Abdomen is distended Extremity: COMMON NORMALS: normal to inspection and full ROM Neuro: COMMON NORMALS: patient oriented x3, moves all extremities and no focal motor deficits Psych: COMMON NORMALS: mental status grossly normal, Normal thought process present and cooperative THOUGHT PROCESS: Normal thought process present Skin: COMMON NORMALS: no rashes or lesions noted and no wounds GENERAL SKIN EXAM: no rashes or lesions noted Course 2 Vital Signs: Vital signs: Vital Signs Temperature 98.0 F 04/14/24 10:56 Pulse Rate 118 H 04/14/24 13:03 Respiratory Rate 18 04/14/24 10:56 Blood Pressure 120/76 04/14/24 13:03 Pulse Oximetry 95 04/14/24 13:03 Oxygen Delivery Me thod Room Air 04/14/24 13:03 MDM - Weakness Medical Decision Making Patient presents here with likely pneumonia along with acute kidney injury and dehydration. I spoke to length with patient's they have considered hospice he wants to hold off on hospice at this time and treat her pneumonia he does not want any aggressive imaging or treatment once fluids and IV antibiotics I spoke to the hospitalist will admit at this time Medical Records I reviewed the patient's medical records. Lab Data I reviewed the patient's lab results. 04/14/24 11:30 04/14/24 11:30 Radiology Impressions Chest X-Ray 04/14/24 11:15 IMPRESSION: Increase in the bilateral perihilar interstitial infiltrates. Laboratory Results WBC 9.50 10^3/uL (3.29-11.43) 04/14/24 11:30 RBC 4.21 10^6/uL (3.85-5.65) 04/14/24 11:30 Hgb 12.20 g/dL (11.27-16.99) 04/14/24 11:30 Hct 41.3 % (36-47) 04/14/24 11:30 MCV 98.1 fl (85-98) H 04/14/24 11:30 MCH 29.0 pg (27-33) 04/14/24 11:30 MCHC 29.5 g/dL (30-55) L 04/14/24 11:30 RDW 17.7 % (12.1-15.1) H 04/14/24 11:30 Plt Count 203 10^3/cmm (157-399) 04/14/24 11:30 MPV 11.5 fL (7.4-10.4) H 04/14/24 11:30 Neut % (Auto) 85.2 % 04/14/24 11:30 Lymph % (Auto) 1.3 % 04/14/24 11:30 [place] % (Auto) 10.7 % 04/14/24 11:30 Eos % (Auto) 0.0 % 04/14/24 11:30 Baso % (Auto) 0.1 % 04/14/24 11:30 Neut # (Auto) 8.09 10^3/uL (1.8-7.7) H 04/14/24 11:30 Lymph # (Auto) 0.1 10^3/uL (0.8-4.8) L 04/14/24 11:30 [place] # (Auto) 1.0 10^3/uL (0.2-0.9) H 04/14/24 11:30 Eos # (Auto) 0.0 10^3/uL (0.0-0.8) 04/14/24 11:30 Baso # (Auto) 0.0 10^3/uL (0.0-0.1) 04/14/24 11:30 Nucleated RBC % (auto) 0.4 % 04/14/24 11:30 Nucleated RBCs # 0.0 /100WBC 04/14/24 11:30 PT 19.00 SECONDS (12.1-14.9) H 04/14/24 11:55 INR 1.53 (0.8-1.2) H 04/14/24 11:55 Sodium 137 mmol/L (136-145) 04/14/24 11:30 Potassium 4.8 mmol/L (3.5-5.1) 04/14/24 11:30 Chloride 100 mmol/L (98-107) 04/14/24 11:30 Carbon Dioxide 19 mmol/L (22-29) L 04/14/24 11:30 Anion Gap 22.8 (5-19) H 04/14/24 11:30 BUN 59 mg/dL (6-20) H 04/14/24 11:30 Creatinine 2.9 mg/dL (0.5-0.9) H 04/14/24 11:30 GFR Calculation 16.6 mL/min (90-130) L 04/14/24 11:30 Glucose 97 mg/dL (65-115) 04/14/24 11:30 Calculated Osmolality 300 mOsm/kg (285-295) H 04/14/24 11:30 Lactic Acid 2.4 mmol/L (0.5-2.2) H 04/14/24 11:30 Calcium 9.9 mg/dL (8.5-10.5) 04/14/24 11:30 Phosphorus 3.5 mg/dL (2.5-4.5) 04/14/24 11:30 Magnesium 1.5 mg/dL (1.7-2.3) L 04/14/24 11:30 Total Bilirubin 0.6 mg/dL (0.15-1.2) 04/14/24 11:30 AST 45 U/L (0-32) H 04/14/24 11:30 ALT 23 U/L (0-33) 04/14/24 11:30 Alkaline Phosphatase 545 U/L (35-105) H 04/14/24 11:30 Total Protein 6.2 g/dL (6.6-8.7) L 04/14/24 11:30 Albumin 3.0 g/dL (3.5-5.2) L 04/14/24 11:30 Globulin 3.2 g/dL (1.3-4.6) 04/14/24 11:30 All radiology interpretation(s) finalized by discharge EKG Data EKG 1: I personally reviewed and interpreted this EKG as follows: EKG interpretation date: 04/14/24 EKG interpretation time: 11:20 Interpretation: sinus tach hr [address] elevation qrs 72 qtc 374 Discharge Plan Discharge Patient Disposition: Admitted As Inpatient Clinical Impression: Secondary malignant neoplasm of retroperitoneum and peritoneum, Malignant neoplasm of unspecified ovary, Pneumonia, Acute dehydration, Acute kidney injury Condition: Stable Prescriptions: No Action (DME) Wheeled seated walker See Rx Instructions .Route .MEDSUPPLY Qty: 1 0RF Rx Instructions: As directed amitriptyline 25 mg tablet 25 mg PO BEDTIME Qty: 30 5RF cefuroxime axetil 500 mg tablet 500 mg PO BID 10 Days Qty: 20 0RF oxycodone 10 mg tablet 10 mg PO Q6H PRN (Reason: pain) 30 Days Qty: 120 0RF lisinopril 20 mg tablet 20 mg PO DAILY Qty: 30 3RF metoprolol tartrate 25 mg tablet 25 mg PO BID Qty: 60 0RF potassium chloride 10 mEq tablet extended release 10 meq PO BID PRN (Reason: on diuretic) Qty: 60 3RF lactulose 20 gram/30 mL solution 20 g PO .COMPLEX MDD 180 ml Qty: 1200 0RF Rx Instructions: 30 mL Q2H PRN until bowel movement, repeat every 72 hours as needed etoposide 50 mg capsule 50 mg PO DAILY Qty: 21 11RF Rx Instructions: Take for 21 days, off for 7, of a 28 day cycle gabapentin 300 mg capsule See Rx Instructions .ROUTE .COMPLEX Qty: 60 0RF Dose Instruction: TAKE 1 CAPSULE BY MOUTH TWICE DAILY FOR PAIN (MAX 3 CAPSULES/24 HOURS) Rx Instructions: TAKE 1 CAPSULE BY MOUTH TWICE DAILY FOR PAIN (MAX 3 CAPSULES/24 HOURS) ondansetron HCl 4 mg tablet 4 mg PO Q6H PRN (Reason: nausea and vomiting) Qty: 60 0RF pantoprazole 40 mg tablet,delayed release (DR/EC) See Rx Instructions .ROUTE .COMPLEX Qty: 30 0RF Dose Instruction: Take 1 tablet by mouth once daily Rx Instructions: Take 1 tablet by mouth once daily oxycodone 15 mg tablet,oral only,ext.rel.12 hr 15 mg PO BID 30 Days Qty: 60 0RF fluconazole 100 mg tablet 100 mg PO DAILY Qty: 30 0RF prochlorperazine maleate [Compazine] 10 mg tablet 10 mg PO Q4H PRN (Reason: Mild Nausea) Qty: 30 3RF lorazepam 1 mg tablet 0.5 - 1 mg PO Q6H PRN (Reason: Severe Nausea) Qty: 30 3RF Narcan 4 mg/actuation spray,non-aerosol 4 mg intranasal Q2M PRN (Reason: opioid overdose) Qty: 2 0RF Rx Instructions: spray 1 dose into ONE nostril; alternate nostrils w each dose until help arrives Referrals: Deepa Farris MD [Primary Care Provider] - Coding Level of Care Code ED [facility] for Char [facility]atch
[2024-04-14 11:56] LABS: Lactic Sepsis W/Reflex 2.4 mmol/L (0.5-2.2)
[2024-04-14 11:57] LABS: Alanine Aminotransferase 23 U/L (0-33); Alkaline Phosphatase 545 U/L (35-105); Aspartate Amino Transferase 45 U/L (0-32); Blood Urea Nitrogen 59 mg/dL (6-20); Calcium 9.9 mg/dL (8.5-10.5); Carbon Dioxide 19 mmol/L (22-29); Chloride 100 mmol/L (98-107); Globulin 3.2 g/dL (1.3-4.6); Glomerular Filtration Rate 16.6 mL/min (90-130); Glucose 97 mg/dL (65-115); Magnesium 1.5 mg/dL (1.7-2.3); Osmolality Calculated 300 mOsm/kg (285-295); Phosphorus 3.5 mg/dL (2.5-4.5); Sodium 137 mmol/L (136-145); Total Bilirubin 0.6 mg/dL (0.15-1.2); Total Protein 6.2 g/dL (6.6-8.7)
[2024-04-14 12:00] LABS: Creatinine Clr Calc Pharmacy 17.8455
[2024-04-14 12:02] LABS: Anion Gap 22.8 (5-19); Potassium 4.8 mmol/L (3.5-5.1)
[2024-04-14] MEDS: SODIUM CHLORIDE 0.9% 1700.97 ML IV (12:16)
[2024-04-14 12:32] LABS: INR 1.53 (0.8-1.2)
[2024-04-14 13:03] VITALS: BP 120/76; PULSE 118; O2SAT 95
[2024-04-14] MEDS: magnesium sulfate premix 2 GM/50 ML PIGGYBACK IV (13:14)
[2024-04-14 13:22] LABS: Reflex Lactate Order REFLEX LACTIC ORDERD
[2024-04-14] MEDS: azithromycin 500 MG in sodium chloride 0.9% 250 ML 250 MG IV (14:28)
[2024-04-14] MEDS: cefTRIAXone 1,000 mg SDV 1000 MG IVP (14:29)
--- NOTE | 2024-04-14 14:36 | XRR_ITS ---
PROCEDURE INFORMATION: Exam: XR Abdomen Exam date and time: 04/14/2024 2:52 PM Age: 58 years old Clinical indication: Bloating; Prior surgery; Surgery date: 6+ months; Surgery type: Hyst, partial colectomy with colostomy, cholecystectomy; Patient HX: Abdominal distention; Weakness; Dehydration; Bilateral hip/pelvic pain post fall TECHNIQUE: Imaging protocol: Radiologic exam of the abdomen. Views: Frontal supine view of the abdomen. 1 View. COMPARISON: CT chest abdpel w/*[id number] 02/29/2024 4:28 PM FINDINGS: Gastrointestinal tract: Above average fecal loading in the colon. No convincing changes of bowel obstruction. Intraperitoneal space: Surgical clips in the pelvis. Organs: Post cholecystectomy. Vasculature: IVC filter. Bones/joints: Mild degenerative of bilateral sacroiliac joints and bilateral hip joints. XR/XR KUB portable [id number] IMPRESSION: Above average fecal loading in the colon, suggestive of constipation. COMMENTS: For patients with an IVC filter, recommend assessment for a management plan for the patient's IVC filter. If there is no established management plan, recommend referral to an interventional clinician on a nonemergent basis for evaluation.
--- NOTE | 2024-04-14 14:36 | XRR_ITS ---
PROCEDURE INFORMATION: Exam: XR Bilateral Hips Exam date and time: 04/14/2024 2:57 PM Age: 58 years old Clinical indication: Hip pain and pelvic pain; Patient HX: Weakness; Dehydration; Bilateral hip/pelvic pain post fall TECHNIQUE: Imaging protocol: Radiologic exam of the bilateral hips. Views: 2 views of hips with pelvis when performed. COMPARISON: CT chest abdpel w/*[id number] 02/29/2024 4:28 PM FINDINGS: Bones/joints: Mild degenerative disease of bilateral hip joints. Mild degenerative of the symphysis pubis. Soft tissues: Unremarkable. Intraperitoneal space: Surgical clips in the pelvis. XR/XR hip BI 2V wo/w pel [id number] IMPRESSION: No acute fracture or dislocation.
--- NOTE | 2024-04-14 14:41 | P.HP_ITS ---
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 Currently patient is alert to person, to place, not to time she is a bit drowsy her family feels that her drowsiness potentially is related to her oxycodone, which they have held, she is also not using the prednisone, but she can follow commands, for the last few days she has had a poor appetite difficulty swallowing, Dr. Amor felt it was potentially Aileen esophagitis so she was started on flucanazole assistance using the fluconazole for a few days her swallowing has improved, she is also had decreased stool output from her colostomy bag, although she had an bowel movement this morning, she did have a fall last night, due to fatigue, malaise denies passing out, fell on her back, currently denies any back pain, no headache, no blurry vision, no loss of consciousness, patient and family wants her to potentially have a trial of radiation therapy, as she has a daughter who is graduating from college, and she wants to attend her graduation Review of Systems 2 Const: Reports: fatigue and malaise; Denies: fever(s) Card: Denies: chest pain Resp: Denies: dyspnea GI: Denies: abdominal pain Medications/Allergies Home Medications Medication Instructions Recorded Confirmed Last Taken Type Wheeled seated walker #1 ea 10/17/23 04/01/24 Unknown Rx potassium chloride 10 mEq 10 meq PO BID PRN on diuretic #60 10/17/23 04/01/24 Unknown Rx tablet,extended release tabs lactulose 20 gram/30 mL oral 20 g (30 mL) PO .COMPLEX 10/19/23 04/01/24 Unknown Rx solution constipation #1,200 mL naloxone 4 mg/actuation nasal 4 mg intranasal Q2M PRN opioid 10/25/23 04/01/24 Unknown Rx spray (Narcan) overdose #2 ea amitriptyline 25 mg tablet 25 mg PO BEDTIME #30 tabs 12/05/23 04/01/24 Unknown Rx lorazepam 1 mg tablet 0.5 - 1 mg (0.5 - 1 x 1 mg) PO Q6H 12/08/23 04/01/24 Unknown Rx PRN Severe Nausea #30 tabs prochlorperazine maleate 10 mg 10 mg PO Q4H PRN Mild Nausea #30 12/08/23 04/01/24 Unknown Rx tablet (Compazine) tabs etoposide 50 mg capsule 50 mg PO DAILY #21 caps 03/12/24 04/01/24 Unknown Rx cefuroxime axetil 500 mg tablet 500 mg PO BID 10 days #20 tabs 03/18/24 04/01/24 Unknown Rx gabapentin 300 mg capsule See Rx Instructions .Route 03/22/24 04/01/24 Unknown Rx .COMPLEX #60 caps ondansetron HCl 4 mg tablet 4 mg PO Q6H PRN nausea and 03/29/24 04/01/24 Unknown Rx vomiting #60 tabs pantoprazole 40 mg tablet,delayed See Rx Instructions .Route 03/29/24 04/01/24 Unknown Rx release .COMPLEX #30 tabs lisinopril 20 mg tablet 20 mg PO DAILY #30 tabs 04/01/24 04/01/24 Unknown Rx metoprolol tartrate 25 mg tablet 25 mg PO BID #60 tabs 04/01/24 04/01/24 Unknown Rx oxycodone 10 mg tablet 10 mg PO Q6H PRN pain 30 days #120 04/01/24 04/01/24 Unknown Rx tabs oxycodone 15 mg tablet,crush 15 mg PO BID 30 days #60 tabs 04/08/24 Unknown Rx resistant,extended release 12 hr fluconazole 100 mg tablet 100 mg PO DAILY #30 tabs 04/12/24 Unknown Rx Allergies Allergy/AdvReac Type Severity Reaction Status Date / Time No Known Allergies Allergy Verified 04/14/24 11:02 PFSH Acute 2 PFSH: Medical History High risk medication use mirvetuximab (hypomagnesium) Perinephric hematoma Hypercalcemia of malignancy Acute kidney injury Pulmonary emboli Deep vein thrombosis of left lower extremity Ovarian cancer HTN (hypertension) Depression Anxiety Surgical History History of exploratory laparotomy (03/22/22) Low anterior resection with placement of end colostomy History of exploratory laparotomy (03/22/22) total abdominal hysterectomy/BSO, omentectomy, and maximal debulking of peritoneal carcinomatosis History of exploratory laparotomy (03/24/22) Exploratory laparotomy with left colon resection and revision of colostomy Port-A-Cath in place (12/20/21) left subclavian History of tubal ligation History of colonoscopy History of cholecystectomy Family History Mother Colon cancer Cancer Dementia Other Hypertension Denies family history of Diabetes CAD (coronary artery disease) Clotting disorder Hyperlipidemia Psychiatric illness Chronic kidney disease (CKD) Suicide Anesthesia complication Bleeding disorder Lung disease Stroke Social History Smoking and tobacco/nicotine status: never used tobacco/nicotine Alcohol intake: never Substance/Drug Use: never Vitals/I&O/Wt Last Vital Signs Temp 98.0 F 04/14/24 10:56 Pulse 118 H 04/14/24 13:03 Resp 18 04/14/24 10:56 BP 120/76 04/14/24 13:03 Pulse Ox 95 04/14/24 13:03 O2 Del Method Room Air 04/14/24 13:03 04/13/24 04/14/24 04/14/24 22:59 06:59 14:59 Intake Total 1750.97 / 1750.97 Balance 1750.97 / 1750.97 Weight last 48 hrs Weight 56.699 kg Physical Exam 2 Const: COMMON NORMALS: no acute distress GENERAL APPEARANCE: ill appearing and frail appearing ORIENTATION/CONSCIOUSNESS: Yes awake, Yes oriented to person and Yes oriented to place; not oriented to time HENMT: COMMON NORMALS: normocephalic HEAD & SCALP: normocephalic Neck/C-Spine: COMMON NORMALS: no JVD Resp: COMMON NORMALS: normal respiratory effort, No retractions, No use of accessory muscles and clear to auscultation bilaterally AUSCULTATION: clear to auscultation bilaterally Cardio: COMMON NORMALS: no JVD, regular rate, regular rhythm, S1 normal heart sound present and S2 normal heart sound present RATE: regular rate RHYTHM: regular rhythm HEART SOUNDS: S1 normal heart sound present and S2 normal heart sound present GI: OTHER: Abdomen soft, distended, diffuse tenderness, no guarding, no rebound, no rigidity, colostomy in place : COMMON NORMALS: Yes no CVA tenderness Extremity: COMMON NORMALS: no pedal edema Data 04/14/24 11:30 04/14/24 11:30 Micro: Microbiology 04/14/24 11:55 Blood Culture - Preliminary Blood SPECIMEN COLLECTED 04/14/24 11:30 Blood Culture - Preliminary Blood SPECIMEN COLLECTED A&P Assessment and plan (1) Acute encephalopathy: (2) Pneumonia: (3) Acute kidney injury: (4) Dehydration: (5) Hypomagnesemia: (6) Metabolic acidosis: (7) Elevated lactic acid level: Plan Acute encephalopathy # Neurochecks # NIH stroke scale # Aspiration precautions Pneumonia ? Continue Rocephin, azithromycin Dehydration, metabolic acidosis, elevated lactic acid H IV fluids LASHAUN, creatinine 2.9 ? IV fluids Fatigue, malaise Poor appetite, trouble swallowing ? Continue IV Diflucan for concerns for Aileen esophagitis History of DVT, PE, not on anticoagulant therapy, due to GI bleed, IVC filter placed High-grade serous carcinoma involving both ovaries, status post hysterectomy, bilateral salpingo-oophorectomy, with debulking of peritoneal carcinomatosis, including anterior resection and end colostomy for mass in the rectal area, ? Status postchemotherapy Is currently on etoposide Cancer related, fatigue, malaise, poor appetite, dehydration Patient is DNR, DNI ? Lovenox for DVT prophylaxis Attestations 2 Medical Necessity Statement*: Patient requires hospitalization, inpatient, greater than 2 midnights, for dehydration, LASHAUN, metabolic acidosis elevated lactic acid, poor appetite, fatigue, malaise, history of ovarian cancer, pneumonia, encephalopathy Diagnoses Acute encephalopathy G93.40 Pneumonia J18.9 Acute kidney injury N17.9 Dehydration E86.0 Hypomagnesemia E83.42 Metabolic acidosis E87.20 Elevated lactic acid level R79.89
[2024-04-14 15:13] LABS: C Reactive Protein 185.2 mg/L (0.0-4.9); Procalcitonin 2.54 ng/mL (0-0.5)
[2024-04-14 15:18] LABS: Lactic Acid level (Lactate) 2.7 mmol/L (0.5-2.2)
[2024-04-14 17:02] VITALS: BP 107/75; PULSE 115; O2SAT 94
[2024-04-14 19:49] VITALS: PULSE 114
[2024-04-14 20:00] VITALS: BP 109/73; PULSE 112; RESP 18; TEMP 36.3; O2SAT 97
[2024-04-14 20:00] LABS: Thyroid Stimulating Hormone 3.93 uIU/mL (0.27-4.20)
[2024-04-14] MEDS: pantoprazole 40 mg SDV IVP (20:05)
[2024-04-14] MEDS: fluconazole premix 100 MG in empty flexible container 1 EACH 50 MG IV (20:05)
[2024-04-14] MEDS: sodium chloride 0.9% 1,000 ML 125 ML IV (20:06)
[2024-04-14] MEDS: fluconazole premix 200 MG/100 ML PREMIX 50 MG (20:22)
[2024-04-14 22:23] VITALS: PULSE 114
[2024-04-15] VITALS (8 sets, daily range): BP systolic 112–125; BP diastolic 68–89; PULSE 108–117; RESP 17–19; TEMP 36.4–36.8; O2SAT 92–96
[2024-04-15] MEDS: sodium chloride 0.9% 1,000 ML 125 ML IV ×2 (03:30→11:08)
[2024-04-15 06:25] LABS: Hematocrit 34.6 % (36-47); Mean Corpuscular HGB Conc 29.8 g/dL (30-55); Mean Corpuscular Hemoglobin 29.7 pg (27-33); Mean Corpuscular Volume 99.7 fl (85-98); Mean Platelet Volume 10.6 fL (7.4-10.4); Platelet Count 170 10^3/cmm (157-399); Red Blood Count 3.47 10^6/uL (3.85-5.65); Red Cell Distribution Width 18.1 % (12.1-15.1); White Blood Count 10.15 10^3/uL (3.29-11.43)
[2024-04-15 06:42] LABS: Alanine Aminotransferase 16 U/L (0-33); Albumin Level 2.5 g/dL (3.5-5.2); Alkaline Phosphatase 381 U/L (35-105); Anion Gap 18.2 (5-19); Aspartate Amino Transferase 38 U/L (0-32); Blood Urea Nitrogen 61 mg/dL (6-20); Calcium 8.3 mg/dL (8.5-10.5); Carbon Dioxide 18 mmol/L (22-29); Chloride 106 mmol/L (98-107); Creatinine Clr Calc Pharmacy 21.1124; Globulin 2.7 g/dL (1.3-4.6); Glomerular Filtration Rate 18.8 mL/min (90-130); Glucose 80 mg/dL (65-115); Magnesium 1.8 mg/dL (1.7-2.3); Osmolality Calculated 302 mOsm/kg (285-295); Phosphorus 3.1 mg/dL (2.5-4.5); Potassium 4.2 mmol/L (3.5-5.1); Sodium 138 mmol/L (136-145); Total Bilirubin 0.4 mg/dL (0.15-1.2); Total Protein 5.2 g/dL (6.6-8.7)
[2024-04-15 07:01] LABS: Slide Review Slide Review Perform
[2024-04-15 07:02] LABS: Absolute Neutrophil 9.6 10^3/cmm (1.4-6.5); Absolute Segmented Neutrophil 6.7 10/cmm (1.6-7.1); Band Neutrophils Absolute 2.9 10^3/cmm (0.0-1.2); Eosinophils 0 %; Lymphocytes 1 %; Lymphocytes Absolute 0.2 10^3/cmm (1.2-3.4); Monocytes Absolute 0.2 10^3/cmm (0.1-0.6); Platelet Estimate Normal (Normal); Segmented Neutrophils 66 %; Total Cells Counted 100 (0-100)
[2024-04-15 07:04] LABS: Anisocytosis 1+
--- NOTE | 2024-04-15 08:35 | CTR_ITS ---
PROCEDURE INFORMATION: Exam: CT Chest Without Contrast; Diagnostic Exam date and time: 04/15/2024 12:32 PM Age: 58 years old Clinical indication: Abdominal pain; Sternal or substernal pain; Prior surgery; Surgery date: 6+ months; Surgery type: Y-hyst, partial colectomy with colostomy, cholecystectomy; Patient HX: HX of ovarian cancer TECHNIQUE: Imaging protocol: Diagnostic computed tomography of the chest without contrast. Radiation optimization: All CT scans at this facility use at least one of these dose optimization techniques: automated exposure control; mA and/or kV adjustment per patient size (includes targeted exams where dose is matched to clinical indication); or iterative reconstruction. COMPARISON: CT chest abdpel w/*[id number] 02/29/2024 4:28 PM RADIATION DOSE METRICS: Total DLP (mGy-cm): 568.68 FINDINGS: Tubes, catheters and devices: Left anterior chest wall infusion port with tip terminating in the right atrium. Lungs: Predominantly upper lung ground-glass to patchy confluence opacities along the bilateral upper, right middle, lingula, and lower lobes. Subpleural lung nodule measures 2 point 3 x 1.2 centimeters at the right lung base, previously measuring a proximally 0.8 centimeters with measuring similar fashion. Worsening lung opacities and consolidations. Attention on follow-up. Pleural spaces: Bilateral pleural effusions large on the right side, small on the left. Heart: Unremarkable. No cardiomegaly. No pericardial effusion. Lymph nodes: Mediastinal lymphadenopathy with tracheal lymph nodes measuring a 1.3 centimeters, and 2 centimeters respectively. Worsening mediastinal lymphadenopathy. Vasculature: Unremarkable. No aortic aneurysm. Bones/joints: Unremarkable. No acute fracture. Soft tissues: Unremarkable. PROCEDURE INFORMATION: Exam: CT Abdomen And Pelvis Without Contrast Exam date and time: 04/15/2024 12:32 PM Age: 58 years old Clinical indication: Abdominal pain; Sternal or substernal pain; Prior surgery; Surgery date: 6+ months; Surgery type: Y-hyst, partial colectomy with colostomy, cholecystectomy; Patient HX: HX of ovarian cancer TECHNIQUE: Imaging protocol: Computed tomography of the abdomen and pelvis without contrast. Radiation optimization: All CT scans at this facility use at least one of these dose optimization techniques: automated exposure control; mA and/or kV adjustment per patient size (includes targeted exams where dose is matched to clinical indication); or iterative reconstruction. COMPARISON: CT chest abdpel w/*[id number] 02/29/2024 4:28 PM RADIATION DOSE METRICS: Total DLP (mGy-cm): 568.68 FINDINGS: Liver: Worsening metastatic ill-defined hypodensities:; Prominent segment 4/8 hypodensity now measuring approximately 7.2 x 4.8 cm, previously 3.5 x 2.8 cm. Midline surgical scar. Gallbladder and biliary ducts: History of cholecystectomy. Pancreas: Normal. No ductal dilation. Spleen: Normal. No splenomegaly. Adrenal glands: Normal. No mass. Kidneys and ureters: Heterogeneous mass extending from the posterior left kidney along the left retroperitoneum, iliopsoas musculature, and left anterior pelvic sidewall, measuring 12.6 x 11 x 23.1 cm (AP x transverse x CC) with cystic necrotic and mixed density areas suggestive of hematoma; previously measured 18 x 16 x 8 cm, similar in appearance and consistency. Stomach and bowel: Left lower quadrant ileostomy. No mechanical bowel obstruction. Appendix: No evidence of appendicitis. Intraperitoneal space: Unremarkable. No free air. No significant fluid collection. Vasculature: IVC filter noted. Lymph nodes: Enlarged lymph nodes:. 1.2 cm gastrohepatic node (series 6, image 34). 1.2 cm mesenteric node (series 9, image 2). 1.1 cm and 1 cm right anterior psoas nodes (series 9, images 57 and 59). Urinary bladder: Unremarkable as visualized. Reproductive: Unremarkable as visualized. Bones/joints: Unremarkable. No acute fracture. Soft tissues: Subcutaneous emphysema along the right anterior abdominal wall. Diffuse soft tissue edema. CT/[place] [id number] IMPRESSION: 1. New bilateral pleural effusions, large on the right and small-moderate on the left side. 2. Worsening diffuse lung opacities. Attention on follow-up. 3. Worsening mediastinal lymphadenopathy. IMPRESSION: 1. Heterogeneous mass along the left kidney that extends along the left retroperitoneum, and left anterior pelvic musculature with a hemorrhagic component, unchanged mass to slightly increased in size. 2. Liver metastatic lesions, worsening. 3. No mechanical bowel obstruction. 4. Lymphadenopathy. COMMENTS: For patients with an IVC filter, recommend assessment for a management plan for the patient's IVC filter. If there is no established management plan, recommend referral to an interventional clinician on a nonemergent basis for evaluation.
[2024-04-15] MEDS: pantoprazole 40 mg SDV IVP ×2 (08:43→20:05)
[2024-04-15] MEDS: enoxaparin 30 mg/0.3 mL Syringe SUBCUT (08:43)
[2024-04-15] MEDS: vancomycin 1,000 MG in sodium chloride 0.9% 250 ML 250 MG IV (11:04)
[2024-04-15] MEDS: oxyCODONE 5 mg IR Tab/Cap 10 MG PO (11:45)
--- NOTE | 2024-04-15 11:45 | PC.OT ---
OT EVALUATION ATTEMPTED; PATIENT HAS MULTIPLE FAMILY MEMBERS IN ROOM AND STATES NO AT THIS TIME. WILL ATTEMPT AGAIN AT A LATER TIME.
[2024-04-15] MEDS: albumin 25 G/100 ML BAG 60 G IV (12:47)
--- NOTE | 2024-04-15 13:23 | P.PN_ITS ---
Subjective 2 Subjective: - Patient was seen this morning ? is at bedside, she has had decreased output from her colostomy bag, episodes of nausea during the night, decrease appetite, ? She complains of severe abdominal pain, she wants to try her home oxycodone ? On examination, her abdomen is distended, has good bowel sounds a diffusely tender, mass palpated left upper left lower quadrant, she does report shortness of breath ? Discussed doing CT chest abdomen pelvis, she is agreeable ? Discussed that I am fearful that she is in sepsis, given her elevated inflammatory markers, would broaden antibiotic coverage to vancomycin, Zosyn, she is agreeable ? I had a detailed discussion with Dr. Amor about patient's case, Dr. Amor is considering palliative radiotherapy for malignancy, family wants round to have a trial of this but they are wondering if she can have palliative radiation therapy and be on hospice, and I confirmed with Dr. Amor that this is possible, however only with some hospice companies -She tells me that she wants to to see h er daughter graduate in about 2 weeks for college Vitals/I&O/Wt Last Vital Signs Temp 97.6 F 04/15/24 11:00 Pulse 116 H 04/15/24 11:00 Resp 17 04/15/24 11:00 BP 116/81 04/15/24 11:00 Pulse Ox 95 04/15/24 11:00 O2 Del Method Nasal Cannula 04/15/24 11:00 O2 Flow Rate 4 04/15/24 11:00 04/14/24 04/15/24 04/15/24 22:59 06:59 14:59 Intake Total 350.000 / 2100.970 925 / 3025.970 1324.167 / 1324.167 Output Total 200 / 200 100 / 100 Balance 350.000 / 2100.970 725 / 2825.970 1224.167 / 1224.167 Weight last 48 hrs Weight 64.909 kg Weight 64.495 kg Weight 56.699 kg Physical Exam 2 Const: COMMON NORMALS: no acute distress and patient oriented x3 GENERAL APPEARANCE: ill appearing and frail appearing Resp: COMMON NORMALS: normal respiratory effort, No retractions, No use of accessory muscles and clear to auscultation bilaterally AUSCULTATION: clear to auscultation bilaterally Cardio: COMMON NORMALS: regular rate, regular rhythm, S1 normal heart sound present and S2 normal heart sound present RATE: regular rate RHYTHM: r egular rhythm HEART SOUNDS: S1 normal heart sound present and S2 normal heart sound present GI: OTHER: Abdomen soft, distended, good bowel sounds, diffusely tender, mass palpated left upper and left lower quadrant Extremity: COMMON NORMALS: no pedal edema Neuro: COMMON NORMALS: patient oriented x3 Psych: COMMON NORMALS: mental status grossly normal Skin: NARRATIVE SKIN EXAM: Has evidence of cancer cachexia, muscle wasting, bilateral temporal muscle wasting, bilateral fat pad thinning under clavicles, ribs Data 04/15/24 05:53 04/15/24 05:53 Micro: Microbiology 04/14/24 11:55 Blood Culture - Preliminary Blood NEGATIVE TO DATE 04/14/24 11:30 Blood Culture - Preliminary Blood NEGATIVE TO DATE A&P Assessment and plan (1) Acute encephalopathy: (2) Pneumonia: (3) Acute kidney injury: (4) Dehydration: (5) Hypomagnesemia: (6) Metabolic acidosis: (7) Elevated lactic acid level: (8) Sepsis: Qualifiers: Severe sepsis shock status: with septic shock (9) Cancer cachexia: (10) Physical deconditioning: (11) Protein calorie malnutrition: Plan Acute encephalopathy resolving # Neurochecks # NIH stroke scale # Aspiration precautions Pneumonia, sepsis Sepsis markers, creatinine 2.6, lactic acid 2.7, elevated CRP, Pro-Dmitry ? Broaden antibiotic coverage to vancomycin, Zosyn ? CT chest Dehydration, metabolic acidosis, elevated lactic acid -IV fluids LASHAUN, creatinine 2.6 ? IV fluids ? 1 dose IV albumin Abdominal pain, abdominal tenderness, A CT scan abdomen pelvis Fatigue, malaise Poor appetite, trouble swallowing ? Continue IV Diflucan for concerns for Aileen esophagitis History of DVT, PE, not on anticoagulant therapy, due to GI bleed, IVC filter placed High-grade serous carcinoma involving both ovaries, status post hysterectomy, bilateral salpingo-oophorectomy, with debulking of peritoneal carcinomatosis, including anterior resection and end colostomy for mass in the rectal area -Now with left lower quadrant mass, biopsies consistent with ovarian carcinoma, with evidence of left iliopsoas mass, mesenteric adenopathy, hepatic metastasis concerning for disease progression ? Status postchemotherapy -Patient and family considering hospice with consideration palliative radiation therapy for masses Cancer related, fatigue, malaise, poor appetite, dehydration -Cancer cachexia, protein calorie malnutrition Patient is DNR, DNI ? Lovenox for DVT prophylaxis Attestations 2 Medical Necessity Statement*: Patient requires hospitalization, inpatient, greater than 2 midnights for sepsis secondary to pneumonia, dehydration, LASHAUN, Dehydration, LASHAUN, deconditioning, Diagnoses Acute encephalopathy G93.40 Pneumonia J18.9 Acute kidney injury N17.9 Dehydration E86.0 Hypomagnesemia E83.42 Metabolic acidosis E87.20 Elevated lactic acid level R79.89 Sepsis A41.9 Severe sepsis shock status: with septic shock Cancer cachexia R64 Physical deconditioning R53.81 Protein calorie malnutrition E46
[2024-04-15] MEDS: piperacillin-tazobactam 3.375 GM in sodium chloride 0.9% (plus) 50 ML IV (14:38)
--- NOTE | 2024-04-15 15:15 | PC.PT ---
PT kokoal attempted. Patient and family report that she is not up to PT at this time. We may try back tomorrow with any therapy services.
[2024-04-15 16:25] LABS: ABG PCO2 37.8 mmHg (35-45); ABG PH Result 7.31 (7.35-7.45); Alveolar-Arterial Oxygen Gradi 4.2 mmHg (5-10); Arterial Blood Gas Hematocrit 27.6 % (37-47); Base Excess ABG -6.8 mmol/L (-2.0-2.0); Blood Gas Allen Test Pos; Blood Gas Operator Identificat WALCI; Blood Gas Sample Site Radial, right; Blood Gas Sample Type Arterial; Carboxyhemoglobin 1.4 %THgb (0.4-20.1); HCO3 ABG 18.9 mmol/L (22-26); HGB O2 Sat 92.1 % (95-100); Ionized Calcium Level - ABG 1.3 mmol/L (1.1-1.4); Methemoglobin 0.9 % (0.4-1.5); Oxygen Device NC; Oxygen Saturation ABG 94.3; PO2 ABG 70.1 mmHg (80.0-100.0); Potassium Level - ABG 3.8 mmol/L (3.5-5.0)
[2024-04-15] MEDS: fluconazole premix 100 MG in empty flexible container 1 EACH 20 MG IV (20:05)
[2024-04-15] MEDS: sodium chloride 0.9% 1,000 ML 75 ML IV (22:13)
--- NOTE | 2024-04-15 23:45 | PC.NURSE ---
Patient currently has crackles throughout on the right side. The previous two shifts, her lung sounds were charted as diminished. Patient is on [address] Smith notified. No new orders received.
[2024-04-16] VITALS (15 sets, daily range): BP systolic 101–141; BP diastolic 59–85; PULSE 102–125; RESP 17–34; TEMP 36.4–36.9; O2SAT 88–99
[2024-04-16] MEDS: piperacillin-tazobactam 3.375 GM in sodium chloride 0.9% (plus) 50 ML IV ×2 (01:21→15:03)
--- NOTE | 2024-04-16 04:14 | XRR_ITS ---
PROCEDURE INFORMATION: Exam: XR Chest Exam date and time: 04/16/2024 4:29 AM Age: 58 years old Clinical indication: Shortness of breath; Additional info: Shortness of breath, hypoxia TECHNIQUE: Imaging protocol: Radiologic exam of the chest. Views: 1 view. COMPARISON: CT chest abdpel [id number] 04/15/2024 12:32 PM FINDINGS: Lungs: Moderate bilateral pulmonary infiltrates have a similar distribution but are slightly denser than before. Pleural spaces: Trace bilateral pleural effusions. Heart/Mediastinum: Unremarkable. No cardiomegaly. Bones/joints: Unremarkable. Other findings: Stable left perfusion portal. XR/XR chest 1V portable [id number] IMPRESSION: Increasing pulmonary infiltrates.
--- NOTE | 2024-04-16 04:30 | PC.NURSE ---
Family member at bedside hit the call light. Patient is short of breath and has audible wheezing, which is a new finding. Crackles still present via auscultation. Patient's oxygen saturation 88 percent on 4 liters. Oxygen turned up to 5 liters, which brought patient's oxygen up to [address] Smith notified of all. Ordered to pause IV fluids and get chest x-ray.
--- NOTE | 2024-04-16 04:46 | PC.NURSE ---
Dr. Smith notified that chest x-ray has been taken and that patient is in quite a bit of distress still.
--- NOTE | 2024-04-16 05:28 | PC.NURSE ---
The patient says she is still struggling to breath. Her oxygen saturation is 91 percent on the 5 liters. The x-ray has not be read by the radiologist yet. Dr. Smith notified. I called x-ray staff to find out how long it would take a stat x-ray to be read and he stated 112-147 minutes, so it could be a couple hours.
--- NOTE | 2024-04-16 06:20 | PC.NURSE ---
Dr. Smith notified that chest x-ray still has not been read. Notified that patient is still complaining that she is short of breath, but oxygen saturation is 91 percent on 5 liters.
[2024-04-16] MEDS: FUROsemide 10 mg/mL SDV 4mL 40 MG IVP ×3 (06:29→17:32)
--- NOTE | 2024-04-16 06:33 | PC.NURSE ---
Dr. Smith ordered Lasix x1, Bipap, and discontinued IV fluids.
[2024-04-16 06:51] LABS: ABG PH Result 7.26 (7.35-7.45); Arterial Blood Gas Hematocrit 30.6 % (37-47); Blood Gas Allen Test Pos; Blood Gas Sample Type Arterial; HCO3 ABG 17.5 mmol/L (22-26); PO2 ABG 72.9 mmHg (80.0-100.0)
[2024-04-16 06:52] LABS: Blood Gas Operator Identificat CL; Blood Gas Sample Site Radial, right; Oxygen Device NC
[2024-04-16 07:04] LABS: Hematocrit 33.7 % (36-47); Mean Corpuscular HGB Conc 29.1 g/dL (30-55); Mean Corpuscular Hemoglobin 29.6 pg (27-33); Mean Corpuscular Volume 101.8 fl (85-98); Mean Platelet Volume 11.1 fL (7.4-10.4); Platelet Count 175 10^3/cmm (157-399); Red Blood Count 3.31 10^6/uL (3.85-5.65); Red Cell Distribution Width 18.3 % (12.1-15.1); White Blood Count 14.57 10^3/uL (3.29-11.43)
[2024-04-16 07:26] LABS: Alanine Aminotransferase 11 U/L (0-33); Albumin Level 2.8 g/dL (3.5-5.2); Alkaline Phosphatase 446 U/L (35-105); Anion Gap 20.3 (5-19); Aspartate Amino Transferase 36 U/L (0-32); Blood Urea Nitrogen 59 mg/dL (6-20); Carbon Dioxide 18 mmol/L (22-29); Chloride 112 mmol/L (98-107); Creatinine Clr Calc Pharmacy 24.7562; Globulin 2.7 g/dL (1.3-4.6); Glomerular Filtration Rate 21.7 mL/min (90-130); Glucose 75 mg/dL (65-115); Magnesium 1.8 mg/dL (1.7-2.3); Osmolality Calculated 317 mOsm/kg (285-295); Phosphorus 3.5 mg/dL (2.5-4.5); Potassium 4.3 mmol/L (3.5-5.1); Sodium 146 mmol/L (136-145); Total Bilirubin 0.5 mg/dL (0.15-1.2); Total Protein 5.5 g/dL (6.6-8.7)
[2024-04-16 07:44] LABS: Lactate Dehydrogenase 937 U/L (135-214)
[2024-04-16] MEDS: enoxaparin 30 mg/0.3 mL Syringe SUBCUT (08:37)
[2024-04-16] MEDS: pantoprazole 40 mg SDV IVP ×2 (08:37→20:47)
[2024-04-16 08:43] LABS: Slide Review Slide Review Perform
--- NOTE | 2024-04-16 09:29 | PC.PT ---
PT spoke with pt and her family this morning. Pt's family would like to discontinue PT orders at this time due to pt weakness and poor prognosis. If pt's status changes and/or PT is warranted, please re-order PT evaluation.
--- NOTE | 2024-04-16 09:32 | PC.OT ---
PER PATIENT AND FAMILY REQUEST; D/C SKILLED OT ORDERS AT THIS TIME.
[2024-04-16] MEDS: sodium bicarbonate 50 MEQ in sodium chloride 0.45% 1,000 ML 100 MEQ IV (09:45)
[2024-04-16 10:01] LABS: Add Urine Microscopic? NO; Charge for UA Resulting for Rev
[2024-04-16 10:11] LABS: NT Pro B Type Natriuretic Pept 3756 pg/mL (0-125)
--- NOTE | 2024-04-16 10:26 | ECG_ITS ---
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 Measurements Intervals [place] Rate: 121 P: 15 TX: 130 QRS: -23 QRSD: 94 T: 20 QT: 338 QTc: 481 Interpretive Statements SINUS TACHYCARDIA INFERIOR MYOCARDIAL INFARCTION , PROBABLY OLD [40+ ms Q WAVE AND/OR ST/T ABNORMALITY IN II/aVF] ANTEROLATERAL MYOCARDIAL INFARCTION , OF INDETERMINATE AGE [40+ ms Q WAVE IN I/aVL/V3-V6] Compared to ECG 04/14/2024 11:20:44 No significant changes Electronically Signed On 04-16-2024 23:45:18 CDT by Jean-Paul Christianson M.D. [id number]
[2024-04-16 10:38] LABS: Bilirubin Urine Neg (Negative); Blood Urine Neg (Negative); Glucose Urine UA Norm (Normal); Ketones Urine Negative (Negative); Leukocyte Esterase Urine Negative (Negative); Nitrate Urine Negative (Negative); Protein Urine Neg (Negative); Specific Gravity, Urine 1.015 (1.005-1.030); Urine Appearance Clear (CLEAR); Urine Color Yellow (Yellow); Urobilinogen Urine Norm (Negative); pH Urine 5 (5-7)
[2024-04-16 10:41] LABS: Troponin(5th) Baseline 282 ng/L (0-10)
[2024-04-16] MEDS: FUROsemide 10 mg/mL SDV 4mL 20 MG IVP (11:44)
[2024-04-16] MEDS: lidocaine 1% 5 ML in potassium chloride premix 100 ML 52.5 ML IV (11:45)
[2024-04-16] MEDS: LORazepam 2 mg/mL INJ 1 mL 0.5 MG IVP ×3 (11:55→20:59)
[2024-04-16 12:17] LABS: Troponin 5 2HR Delta 0.7 ABS# (0-10)
[2024-04-16] MEDS: azithromycin 500 MG in sodium chloride 0.9% 250 ML 250 MG IV (12:54)
[2024-04-16 13:05] LABS: Troponin 5 2HR 282.7 ng/L (0-10)
--- NOTE | 2024-04-16 13:09 | P.PN_ITS ---
Subjective 2 Subjective: - Early this morning, patient had eviden ce of respiratory distress, was placed on 6 L, fluids were stopped, and she was given 40 mg of Lasix, she has had about 600 urine output ? She is seen early this morning, is at bedside, she is alert and oriented x 3, following all commands, but does appear to be in mild to moderate respiratory distress, has nasal flaring, intercostal retractions, tachypnea, tachycardia, chest x-ray showing evidence of pulmonary edema, with elevated BNP, and concerns for worsening pneumonia, she also has evidence of worsening sepsis ? I had a detailed discussion with patient and her at bedside ? I am worried about her acute hypoxic respiratory failure, concern for developing pulmonary edema, worsening sepsis, worsening pneumonia, with NSTEMI, which is associate with significant morbidity and mortality, at baseline her prognosis is poor, however patient and are trying to extend her condition so that she can be there for her daughter's delivery in 2 weeks ? We discussed doing a trial of Lasix therapy, I will add on additional antibiotics, we can add on morphine and Ativan to help with air hunger, to help with her tachypnea ? Currently she appears to be in mild to moderate respiratory distress, respiratory failure, discussed that her condition could worsen, she tells me that she is a DNR/DNI that if her condition worsens she is okay with it she wants to be comfortable, she does not want to suffer, she is okay with being on comfort care if she starts to suffer or her condition worsens ? I was paged by nursing staff that patient's condition is worsening, her respiratory failure is worsening, she is becoming less responsive, her O2 requirements have increased, ? On examination, patient's family members are at bedside, is at bedside, she is in moderate respiratory distress, 40% BiPAP, she does awaken, but falls asleep nasal flaring, intercostal retractions, tachypnea, tachycardia appears to be in acute hypoxic respiratory failure, acute respiratory distress, she was given another dose of Lasix, urine output since then is between 600 to 700 mL ? We discussed continue Ativan for air hunger, to help with her tachypnea, morphine as needed to help with air hunger, will give her another dose of Lasix to help with fluid overload overload, I have added on additional antibiotics, ? Currently patient has acute encephalopathy she does awaken, but falls back asleep, ? I had a detailed discussion with patient's outside the room, currently her status is critical prognosis is poor, she is in multiorgan dysfunction, with acute hypoxic respiratory failure with acute respiratory distress, likely from fluid overload, sepsis, pneumonia, with renal failure, NSTEMI, with underlying malignancy, for which her prognosis is already poor, and family was considering hospice with palliative radiation therapy ? Discussed overall goals of care, she remains a DNR/DNI ? As per Genny's wishes if her condition were to worsen she had told me with her at bedside that she would just want to be comfortable if she were to start to suffer ? For now wants us to continue a trial of medical therapy continue BiPAP, continue antibiotics continue diuresis, but we can also continue Ativan and morphine as needed # However her tells me that if her condition starts to worsen, respiratory failure worsens, or she starts to suffer that he is agreeable to full comfort care, easing her pain easing her suffering allowing her to pass away comfortably ? I advised him to have all family members come and see her, I think her likely worsen, I think that if we stop all interventions her will be admitted, -Prognosis poor, status critical, on Med Surg ? Spoke to all nursing staff, spoke to respiratory therapy multiple family meetings Vitals/I&O/Wt Last Vital Signs Temp 98.5 F 04/16/24 07:19 Pulse 125 H 04/16/24 12:55 Resp 17 04/16/24 10:38 BP 101/59 04/16/24 10:38 Pulse Ox 96 04/16/24 12:55 O2 Del Method Nasal Cannula 04/16/24 10:38 O2 Flow Rate 6 04/16/24 10:38 FiO2 55 04/16/24 12:55 04/15/24 04/16/24 04/16/24 22:59 06:59 14:59 Intake Total 760.417 / 2524.167 501.25 / 3025.417 Output Total 300 / 400 Balance 460.417 / 2124.167 501.25 / 2625.417 Weight last 48 hrs Weight 70.261 kg Weight 64.909 kg Weight 64.495 kg Physical Exam 2 Const: COMMON NORMALS: no acute distress GENERAL APPEARANCE: lethargic O RIENTATION/CONSCIOUSNESS: Yes awake, Yes confused, Yes patient obtunded and Yes lethargic; not oriented to person and not oriented to time Resp: OTHER: Diffuse crackles, wheezing, tachypnea, tachycardia intercostal retractions, suprasternal retractions, nasal flaring Cardio: COMMON NORMALS: regular rhythm, S1 normal heart sound present and S2 normal heart sound present RATE: tachycardic RHYTHM: regular rhythm H EART SOUNDS: S1 normal heart sound present and S2 normal heart sound present GI: COMMON NORMALS: Normal to inspection, nondistended, normoactive bowel sounds present, Soft to palpation and non-tender PALPATION: Yes Soft to palpation Extremity: COMMON NORMALS: no pedal edema Neuro: SENSORIUM/ORIENTATION: No oriented to person, No oriented to time and Yes lethargic Urinary Catheter Management: Anaya: Cath Placed During This Visit: yes Urinary Catheter Date of Insertion: 04/16/24 Urinary Catheter Time of Insertion: 08:30 Sepsis: Is patient septic: Yes Focused sepsis exam performed: Yes F ocused sepsis exam: DP PT pulses diminished, no significant mottling, cap refill greater than 2 seconds Date exam was performed: 04/16/24 Time exam was performed: 08:00 Data 04/16/24 05:57 04/16/24 05:57 Micro: Microbiology 04/14/24 11:55 Blood Culture - Preliminary Blood NEGATIVE TO DATE 04/14/24 11:30 Blood Culture - Preliminary Blood NEGATIVE TO DATE A&P Assessment and plan (1) Acute encephalopathy: (2) Pneumonia: (3) Acute kidney injury: (4) Dehydration: (5) Hypomagnesemia: (6) Metabolic acidosis: (7) Elevated lactic acid level: (8) Sepsis: Qualifiers: Severe sepsis shock status: with septic shock (9) Cancer cachexia: (10) Physical deconditioning: (11) Protein calorie malnutrition: (12) NSTEMI (non-ST elevated myocardial infarction): (13) Acute respiratory distress: (14) Acute hypoxic respiratory failure: (15) Pulmonary edema: Plan Acute encephalopathy, has developed this evening, likely secondary to hypoxic respiratory failure # Neurochecks # NIH stroke scale # Aspiration precautions acute hypoxic respiratory failure, acute respiratory distress syndrome Pneumonia, sepsis, pulmonary edema, nstemi Sepsis markers, creatinine 2.6, lactic acid 2.7, elevated CRP, Pro-Dmitry ? plan: -BIPAP -Broaden antibiotic coverage to vancomycin, Zosyn, azithromycin -lasix therapy -Continue bicarb drip ? Status is critical, prognosis poor NSTEMI ? Type I versus type II ? Likely secondary to acute hypoxic respiratory failure, respiratory distress syndrome, ? However cannot rule out underlying cardiac etiology, -Hemoglobin 9.8 ? History of acute hemorrhage following anticoagulation when she was diagnosed with a DVT and PE, required IVC filter placement ? For now we will hold off on anticoagulant therapy due to risk of hemorrhage, CT scan showing heterogeneous mass along left kidney, with hemorrhagic component metabolic acidosis, elevated lactic acid -Bicarb drip LASHAUN, creatinine 2.6 ? Secondary to sepsis, monitor Abdominal pain, abdominal tenderness, A CT scan abdomen pelvis Fatigue, malaise Poor appetite, trouble swallowing ? Continue IV Diflucan for concerns for Aileen esophagitis History of DVT, PE, not on anticoagulant therapy, due to GI bleed, IVC filter placed High-grade serous carcinoma involving both ovaries, status post hysterectomy, bilateral salpingo-oophorectomy, with debulking of peritoneal carcinomatosis, including anterior resection and end colostomy for mass in the rectal area -Now with left lower quadrant mass, biopsies consistent with ovarian carcinoma, with evidence of left iliopsoas mass, mesenteric adenopathy, hepatic metastasis concerning for disease progression ? Status postchemotherapy -Patient and family considering hospice with consideration palliative radiation therapy for masses -CT chest abdomen [place] [id number] IMPRESSION: 1. New bilateral pleural effusions, large on the right and small-moderate on the left side. 2. Worsening diffuse lung opacities. Attention on follow-up. 3. Worsening mediastinal lymphadenopathy. IMPRESSION: 1. Heterogeneous mass along the left kidney that extends along the left retroperitoneum, and left anterior pelvic musculature with a hemorrhagic component, unchanged mass to slightly increased in size. 2. Liver metastatic lesions, worsening. 3. No mechanical bowel obstruction. 4. Lymphadenopathy. Cancer related, fatigue, malaise, poor appetite, dehydration -Cancer cachexia, protein calorie malnutrition Patient is DNR, DNI ? Lovenox for DVT prophylaxis Prognosis poor, status critical, - Early this morning, patient had evidence of respiratory distress, was placed on 6 L, fluids were stopped, and she was given 40 mg of Lasix, she has had about 600 urine output ? She is seen early this morning, is at bedside, she is alert and oriented x 3, following all commands, but does appear to be in mild to moderate respiratory distress, has nasal flaring, intercostal retractions, tachypnea, tachycardia, chest x-ray showing evidence of pulmonary edema, with elevated BNP, and concerns for worsening pneumonia, she also has evidence of worsening sepsis ? I had a detailed discussion with patient and her at bedside ? I am worried about her acute hypoxic respiratory failure, concern for developing pulmonary edema, worsening sepsis, worsening pneumonia, with NSTEMI, which is associate with significant morbidity and mortality, at baseline her prognosis is poor, however patient and are trying to extend her condition so that she can be there for her daughter's delivery in 2 weeks ? We discussed doing a trial of Lasix therapy, I will add on additional antibiotics, we can add on morphine and Ativan to help with air hunger, to help with her tachypnea ? Currently she appears to be in mild to moderate respiratory distress, respiratory failure, discussed that her condition could worsen, she tells me that she is a DNR/DNI that if her condition worsens she is okay with it she wants to be comfortable, she does not want to suffer, she is okay with being on comfort care if she starts to suffer or her condition worsens ? I was paged by nursing staff that patient's condition is worsening, her respiratory failure is worsening, she is becoming less responsive, her O2 requirements have increased, ? On examination, patient's family members are at bedside, is at bedside, she is in moderate respiratory distress, 40% BiPAP, she does awaken, but falls asleep nasal flaring, intercostal retractions, tachypnea, tachycardia appears to be in acute hypoxic respiratory failure, acute respiratory distress, she was given another dose of Lasix, urine output since then is between 600 to 700 mL ? We discussed continue Ativan for air hunger, to help with her tachypnea, morphine as needed to help with air hunger, will give her another dose of Lasix to help with fluid overload overload, I have added on additional antibiotics, ? Currently patient has acute encephalopathy she does awaken, but falls back asleep, ? I had a detailed discussion with patient's outside the room, currently her status is critical prognosis is poor, she is in multiorgan dysfunction, with acute hypoxic respiratory failure with acute respiratory distress, likely from fluid overload, sepsis, pneumonia, with renal failure, NSTEMI, with underlying malignancy, for which her prognosis is already poor, and family was considering hospice with palliative radiation therapy ? Discussed overall goals of care, she remains a DNR/DNI ? As per Genny's wishes if her condition were to worsen she had told me with her at bedside that she would just want to be comfortable if she were to start to suffer ? For now wants us to continue a trial of medical therapy continue BiPAP, continue antibiotics continue diuresis, but we can also continue Ativan and morphine as needed # However her tells me that if her condition starts to worsen, respiratory failure worsens, or she starts to suffer that he is agreeable to full comfort care, easing her pain easing her suffering allowing her to pass away comfortably ? I advised him to have all family members come and see her, I think her likely worsen, I think that if we stop all interventions her will be admitted, -Prognosis poor, status critical, on MedSurg ? Spoke to all nursing staff, spoke to respiratory therapy multiple family meetings Attestations 2 Medical Necessity Statement*: Patient requires hospitalization for acute respiratory distress syndrome, acute hypoxic respiratory failure, pulm edema, pneumonia, sepsis, acute renal failure, NSTEMI Diagnoses Acute encephalopathy G93.40 Pneumonia J18.9 Acute kidney injury N17.9 Dehydration E86.0 Hypomagnesemia E83.42 Metabolic acidosis E87.20 Elevated lactic acid level R79.89 Sepsis A41.9 Severe sepsis shock status: with septic shock Cancer cachexia R64 Physical deconditioning R53.81 Protein calorie malnutrition E46 NSTEMI (non-ST elevated myocardial infarction) I21.4 Acute respiratory distress R06.03 Acute hypoxic respiratory failure J96.01 Pulmonary edema J81.1
[2024-04-16] MEDS: morphine 4 mg/mL SDV 1 mL 2 MG IVP (13:24)
[2024-04-16] MEDS: hydrocortisone 100 mg/2 mL SDV IVP (13:25)
[2024-04-16] MEDS: fluconazole premix 100 MG in empty flexible container 1 EACH 20 MG IV (20:46)
[2024-04-16] MEDS: vancomycin 1,000 MG in sodium chloride 0.9% 250 ML 250 MG IV (21:35)
[2024-04-17] VITALS (12 sets, daily range): BP systolic 91–104; BP diastolic 59–70; PULSE 102–107; RESP 16–32; TEMP 36.3–36.6; O2SAT 98–100
[2024-04-17] MEDS: piperacillin-tazobactam 3.375 GM in sodium chloride 0.9% (plus) 50 ML IV (01:28)
[2024-04-17] MEDS: sodium bicarbonate 50 MEQ in sodium chloride 0.45% 1,000 ML IV (01:29)
[2024-04-17] MEDS: morphine 4 mg/mL SDV 1 mL 2 MG IVP ×2 (03:14→07:31)
[2024-04-17 06:14] LABS: Basophils # 0.1 10^3/uL (0.0-0.1); Basophils % 0.6 %; Hematocrit 30.4 % (36-47); Lymphocytes # 0.1 10^3/uL (0.8-4.8); Lymphocytes % 0.7 %; Mean Corpuscular HGB Conc 29.3 g/dL (30-55); Mean Corpuscular Hemoglobin 29.6 pg (27-33); Mean Platelet Volume 11.2 fL (7.4-10.4); Monocytes # 0.6 10^3/uL (0.2-0.9); Monocytes % 3.2 %; Neutrophils # 15.96 10^3/uL (1.8-7.7); Neutrophils % 90.7 %; Nucleated Red Blood Cells % 0.1 %; Platelet Count 150 10^3/cmm (157-399); Red Blood Count 3.01 10^6/uL (3.85-5.65); Red Cell Distribution Width 18.3 % (12.1-15.1)
[2024-04-17 06:32] LABS: Alanine Aminotransferase 10 U/L (0-33); Albumin Level 2.5 g/dL (3.5-5.2); Alkaline Phosphatase 256 U/L (35-105); Anion Gap 23.2 (5-19); Aspartate Amino Transferase 30 U/L (0-32); Blood Urea Nitrogen 71 mg/dL (6-20); Calcium 7.6 mg/dL (8.5-10.5); Carbon Dioxide 17 mmol/L (22-29); Chloride 110 mmol/L (98-107); Creatinine Clr Calc Pharmacy 20.8561; Globulin 2.5 g/dL (1.3-4.6); Glomerular Filtration Rate 17.3 mL/min (90-130); Glucose 96 mg/dL (65-115); Magnesium 1.7 mg/dL (1.7-2.3); Osmolality Calculated 323 mOsm/kg (285-295); Phosphorus 4.1 mg/dL (2.5-4.5); Potassium 4.2 mmol/L (3.5-5.1); Sodium 146 mmol/L (136-145); Total Bilirubin 0.4 mg/dL (0.15-1.2)
--- NOTE | 2024-04-17 06:33 | PC.NURSE ---
Family member at bedside refusing to have patient turned.
[2024-04-17 07:07] LABS: Slide Review Slide Review Perform
[2024-04-17] MEDS: pantoprazole 40 mg SDV IVP (07:32)
[2024-04-17] MEDS: FUROsemide 10 mg/mL SDV 4mL 40 MG IVP (07:59)
[2024-04-17] MEDS: LORazepam 2 mg/mL INJ 1 mL 0.5 MG IVP (08:00)
[2024-04-17] MEDS: enoxaparin 30 mg/0.3 mL Syringe SUBCUT (08:03)
[2024-04-17] MEDS: morphine 4 mg/mL SDV 1 mL IVP ×6 (10:55→11:36)
[2024-04-17] MEDS: LORazepam 2 mg/mL INJ 1 mL IVP (11:00)
--- NOTE | 2024-04-17 11:30 | PC.NURSE ---
Pt titrated off of BIPAP per comfort orders. Morphine administered several times for comfort. SEE MAR. This nurse at bedside to monitor comfort closely. Family at side as well.
--- NOTE | 2024-04-17 15:17 | P.PN_ITS ---
Subjective 2 Subjective: - Patient was seen this morning -Family numbers at bedside including hus band -She is on 55% fio2, BiPAP dependent -She alert, can we can help, but does no t follow commands alert oriented x 0, ? Urine output 1300, creatinine 2.8 ? I had a detailed discussion with patient's family, patient's about patient's acute hypoxic respiratory failure she has become less responsive, mostly nonresponsive this morning, urine output with multiple doses of Lasix has been a bit lackluster at 1300 with elevated creatinine, did worsening sepsis markers including metabolic acidosis,, leukocytosis, ? Had a discussion about goals of care in detail with at bedside and outside the room ? In front of meand her Genny yesterday before she went into respiratory failure had said that if her condition worsened she just would want to be made comfortable ? does not want to watch Kaz go through this anymore, she he tells me that she is suffering, she is struggling to breathe, and she would not want to live like this, she knew that this was terminal, she just wanted to extend her life so that she could be there for her daughters delivery however becomes very tearful and tells me that he knows that that is unlikely and putting her through any more of this to have any hope with that becoming a reality would be going against her wishes, would be watching her suffering, and he does not want to put her through this anymore risk ? We discussed overall goals of care, after discussing the risk and benefits of all options, he voiced understanding, all question answered, he wanted to proceed with full comfort care stop all interventions stop BiPAP stop antibiotics and let Genny pass away comfortably, with dignity, and abiding by her wishes ? However they want a wait until her son comes been since his final goodbyes ? Once the family is ready we will proceed with full comfort care, Vitals/I&O/Wt Last Vital Signs Temp 97.8 F 04/17/24 08:00 Pulse 107 H 04/17/24 08:00 Resp 16 04/17/24 11:36 BP 104/70 04/17/24 08:00 Pulse Ox 100 04/17/24 08:00 O2 Del Method BiPAP 04/17/24 08:00 O2 Flow Rate 6 04/16/24 10:38 FiO2 55 04/17/24 07:43 04/17/24 04/17/24 04/17/24 06:59 14:59 22:59 Intake Total 565 / 1865 0 / 0 Output Total 200 / 1300 Balance 365 / 565 0 / 0 Weight last 48 hrs Weight 74.072 kg Weight 70.261 kg Physical Exam 2 Const: COMMON NORMALS: no acute distress EXAM LIMITATIONS: altered mental status GENERAL APPEARANCE: lethargic ORIENTATION/CONSCIOUSNESS: Yes awake, Yes confused, Yes patient obtunded and Yes lethargic; not oriented to person, not oriented to place and not oriented to time Resp: COMMON NORMALS: normal respiratory effort, No retractions and No use of accessory muscles AUSCULTATION: crackles Cardio: COMMON NORMALS: regular rate, regular rhythm, S1 normal heart sound present and S2 normal heart sound present RATE: regular rate RHYTHM: r egular rhythm HEART SOUNDS: S1 normal heart sound present and S2 normal heart sound present GI: COMMON NORMALS: Normal to inspection, nondistended, normoactive bowel sounds present and non-tender Extremity: COMMON NORMALS: no pedal edema Neuro: SENSORIUM/ORIENTATION: No oriented to person, No oriented to place, No oriented to time and Yes lethargic Urinary Catheter Management: Anaya: Cath Placed During This Visit: yes Reason for Continuing Indwelling Catheter: Accurate Measurement of Urinary Output in Critically Ill Patients Urinary Catheter Date of Insertion: 04/16/24 Urinary Catheter Time of Insertion: 08:30 Data 04/17/24 06:00 04/17/24 06:00 A&P Assessment and plan (1) Need for comfort care: - Need for comfort care ? Acute hypoxic respiratory failure, fluid overload, pneumonia, sepsis, renal failure, unresponsive, encephalopathy, metabolic acidosis ? With underlying Metastatic ovarian carcinoma (2) Acute encephalopathy: (3) Pneumonia: (4) Acute kidney injury: (5) Dehydration: (6) Hypomagnesemia: (7) Metabolic acidosis: (8) Elevated lactic acid level: (9) Sepsis: Qualifiers: Severe sepsis shock status: with septic shock (10) Cancer cachexia: (11) Physical deconditioning: (12) Protein calorie malnutrition: (13) NSTEMI (non-ST elevated myocardial infarction): (14) Acute respiratory distress: (15) Acute hypoxic respiratory failure: (16) Pulmonary edema: Plan proceeding with comfort care Acute encephalopathy, has developed this evening, likely secondary to hypoxic respiratory failure # Neurochecks # NIH stroke scale # Aspiration precautions acute hypoxic respiratory failure, acute respiratory distress syndrome Pneumonia, sepsis, pulmonary edema, nstemi Sepsis markers, creatinine 2.6, lactic acid 2.7, elevated CRP, Pro-Dmitry ? plan: -BIPAP -Broaden antibiotic coverage to vancomycin, Zosyn, azithromycin -lasix therapy -Continue bicarb drip ? Status is critical, prognosis poor NSTEMI ? Type I versus type II ? Likely secondary to acute hypoxic respiratory failure, respiratory distress syndrome, ? However cannot rule out underlying cardiac etiology, -Hemoglobin 9.8 ? History of acute hemorrhage following anticoagulation when she was diagnosed with a DVT and PE, required IVC filter placement ? For now we will hold off on anticoagulant therapy due to risk of hemorrhage, CT scan showing heterogeneous mass along left kidney, with hemorrhagic component metabolic acidosis, elevated lactic acid -Bicarb drip LASHAUN, creatinine 2.6 ? Secondary to sepsis, monitor Abdominal pain, abdominal tenderness, A CT scan abdomen pelvis Fatigue, malaise Poor appetite, trouble swallowing ? Continue IV Diflucan for concerns for Aileen esophagitis History of DVT, PE, not on anticoagulant therapy, due to GI bleed, IVC filter placed High-grade serous carcinoma involving both ovaries, status post hysterectomy, bilateral salpingo-oophorectomy, with debulking of peritoneal carcinomatosis, including anterior resection and end colostomy for mass in the rectal area -Now with left lower quadrant mass, biopsies consistent with ovarian carcinoma, with evidence of left iliopsoas mass, mesenteric adenopathy, hepatic metastasis concerning for disease progression ? Status postchemotherapy -Patient and family considering hospice with consideration palliative radiation therapy for masses -CT chest abdomen [place] [id number] IMPRESSION: 1. New bilateral pleural effusions, large on the right and small-moderate on the left side. 2. Worsening diffuse lung opacities. Attention on follow-up. 3. Worsening mediastinal lymphadenopathy. IMPRESSION: 1. Heterogeneous mass along the left kidney that extends along the left retroperitoneum, and left anterior pelvic musculature with a hemorrhagic component, unchanged mass to slightly increased in size. 2. Liver metastatic lesions, worsening. 3. No mechanical bowel obstruction. 4. Lymphadenopathy. Cancer related, fatigue, malaise, poor appetite, dehydration -Cancer cachexia, protein calorie malnutrition Patient is DNR, DNI ? Lovenox for DVT prophylaxis Prognosis poor, status critical, - Patient was seen this morning -Family numbers at bedside including -She is on 55% fio2, BiPAP dependent -She alert, can we can help, but does not follow commands alert oriented x 0, ? Urine output 1300, creatinine 2.8 ? I had a detailed discussion with patient's family, patient's about patient's acute hypoxic respiratory failure she has become less responsive, mostly nonresponsive this morning, urine output with multiple doses of Lasix has been a bit lackluster at 1300 with elevated creatinine, did worsening sepsis markers including metabolic acidosis,, leukocytosis, ? Had a discussion about goals of care in detail with at bedside and outside the room ? In front of meand her Genny yesterday before she went into respiratory failure had said that if her condition worsened she just would want to be made comfortable ? does not want to watch Kaz go through this anymore, she he tells me that she is suffering, she is struggling to breathe, and she would not want to live like this, she knew that this was terminal, she just wanted to extend her life so that she could be there for her daughters delivery however becomes very tearful and tells me that he knows that that is unlikely and putting her through any more of this to have any hope with that becoming a reality would be going against her wishes, would be watching her suffering, and he does not want to put her through this anymore risk ? We discussed overall goals of care, after discussing the risk and benefits of all options, he voiced understanding, all question answered, he wanted to proceed with full comfort care stop all interventions stop BiPAP stop antibiotics and let Genny pass away comfortably, with dignity, and abiding by her wishes ? However they want a wait until her son comes been since his final goodbyes ? Once the family is ready we will proceed with full comfort care, Attestations 2 Medical Necessity Statement*: patient requires hospitalization for comfort care Diagnoses Need for comfort care Acute encephalopathy G93.40 Pneumonia J18.9 Acute kidney injury N17.9 Dehydration E86.0 Hypomagnesemia E83.42 Metabolic acidosis E87.20 Elevated lactic acid level R79.89 Sepsis A41.9 Severe sepsis shock status: with septic shock Cancer cachexia R64 Physical deconditioning R53.81 Protein calorie malnutrition E46 NSTEMI (non-ST elevated myocardial infarction) I21.4 Acute respiratory distress R06.03 Acute hypoxic respiratory failure J96.01 Pulmonary edema J81.1
--- NOTE | 2024-04-17 16:34 | PC.NURSE ---
Pt at 1630. Absence of heartbeat noted by this nurse as well as Timmy Sanon RN. Family at bedside. Doug schuster.
--- NOTE | 2024-04-17 17:22 | PC.NURSE ---
Magalie from [facility] called and stated patient was not a candidate and could be released to the home
--- NOTE | 2024-04-17 17:41 | PM.DDS ---
Discharge Providers DDS Date of Admission: 04/14/24 14:12 Date Summary Completed: 04/23/24 Attending Provider at Admission: Don Camacho MD Attending Provider at Discharge: Don Camacho MD Primary Care Provider: Deepa Farris MD DS Diagnoses Hospital Diagnoses (1) Need for comfort care: (2) Acute encephalopathy: (3) Pneumonia: (4) Acute kidney injury: (5) Dehydration: (6) Hypomagnesemia: (7) Metabolic acidosis: (8) Elevated lactic acid level: (9) Sepsis: Qualifiers: Severe sepsis shock status: with septic shock (10) Cancer cachexia: (11) Physical deconditioning: (12) Protein calorie malnutrition: (13) NSTEMI (non-ST elevated myocardial infarction): (14) Acute respiratory distress: (15) Acute hypoxic respiratory failure: (16) Pulmonary edema: Reason for Visit Reason for Visit dehydration, generalized weakness Summary Summary Summary: Genny Diaz is a 58 year old female with a past medical history of high-grade serous carcinoma involving both ovaries, with peritoneal carcinomatosis, history of hysterectomy and bilateral salpingectomy to mo, peritoneal biopsies, debulking, history of left lower extremity DVT with pulm embolism, history of hemorrhagic shock, requiring placement of IVC filter, currently on chemotherapy, plans on radiation therapy, who presents [facility] due to fatigue, malaise, poor appetite, difficulty swallowing, altered mental status. Currently patient is alert to person, to place, not to time she is a bit drowsy her family feels that her drowsiness potentially is related to her oxycodone, which they have held, she is also not using the prednisone, but she can follow commands, for the last few days she has had a poor appetite difficulty swallowing, Dr. Amor felt it was potentially Aileen esophagitis so she was started on flucanazole assistance using the fluconazole for a few days her swallowing has improved, she is also had decreased stool output from her colostomy bag, although she had an bowel movement this morning, she did have a fall last night, due to fatigue, malaise denies passing out, fell on her back, currently denies any back pain, no headache, no blurry vision, no loss of consciousness, patient and family wants her to potentially have a trial of radiation therapy, as she has a daughter who is graduating from college, and she wants to attend her graduation This is a 58-year-old female, who presents [facility] for acute hypoxic respiratory failure, secondary to pneumonia, sepsis, pulmonary edema, NSTEMI, acute encephalopathy, metabolic acidosis, sdn acute renal failure. Patient has a history of high-grade serous carcinoma involving both ovaries, status post hysterectomy, bilateral salpingo-oophorectomy, with debulking of peritoneal carcinomatosis, debulking of peritoneal carcinomatosis, and end colostomy for mass in rectal area. Now with left lower quadrant mass, biopsies consistent with ovarian carcinoma, with evidence of left iliopsoas mass, mesenteric adenopathy, hepatic metastasis concerning for disease progression, Status postchemotherapy, but continues to show disease progression, patient and family considering hospice with consideration palliative radiation therapy for masses. Their ultimate goal was to give Genny enough time so she could be their for the delivery of her grandchild in a few weeks. Patient was monitored as inpatient, received broad-spectrum antibiotic therapy, BiPAP therapy, and clinically monitored. Unfortunately patient's clinical condition worsened, with worsening respiratory failure, developing respiratory distress, BiPAP dependent, worsening encephalopathy, developing fluid overload, and worsening renal failure. She was given a trial of medical therapy however continued to have poor clinical response, continued to show evidence of clinical deterioration, multiorgan failure. After discussing risk and benefits of all options, patient's family voiced understanding, all questions answered shared decision making, agreed to proceed with comfort care. Patient was made comfort care, time of 04/17/2024 1630. Additional Data Confirmation of as documented by pronouncing clinician: no pulse, no respirations and no heart sounds Family: at bedside Additional persons at bedside: nursing staff Attending/PCP notified?: I am attending Was code activated?: No Autopsy requested?: No Advance directives?: Yes Discharge Plan Discharge Patient Disposition: Condition: Stable DS Attestations Time Spent in /Discharge Care*: greater than 30 min Quality - AMI: AMI present?: No Quality - Stroke: CVA present?: No Symptom Onset Unknown: No Quality - VTE: VTE present?: No Deep Vein Thrombosis/Pulmonary Embolism Present on Admission: No Coding Level of Care Code 02942 Total time (in minutes) for Discharge: 45 Diagnoses Need for comfort care Acute encephalopathy G93.40 Pneumonia J18.9 Acute kidney injury N17.9 Dehydration E86.0 Hypomagnesemia E83.42 Metabolic acidosis E87.20 Elevated lactic acid level R79.89 Sepsis A41.9 Severe sepsis shock status: with septic shock Cancer cachexia R64 Physical deconditioning R53.81 Protein calorie malnutrition E46 NSTEMI (non-ST elevated myocardial infarction) I21.4 Acute respiratory distress R06.03 Acute hypoxic respiratory failure J96.01 Pulmonary edema J81.1
--- NOTE | 2024-04-17 18:38 | PC.NURSE ---
Family has left bedside. Post mortem care provided to pt. [facility] contacted to orange picking supervisor body
--- NOTE | 2024-04-17 19:50 | PC.NURSE ---
[facility] picks body up at 1930.
== END 2024-04-17 19:30 | disposition expired | DRG 871 ==
LOC: ER 16:08 → MEDSURG 16:44
PROVIDERS: Internal Medicine; Admitting Provider Family Medicine; Emergency Provider Emergency Medicine; PCP Internal Medicine; Visit Provider Family Medicine
DX: A41.9 Sepsis, unspecified organism (principal); I21.4 Non-ST elevation (NSTEMI) myocardial infarction; J18.9 Pneumonia, unspecified organism; R65.21 Severe sepsis with septic shock; J80 Acute respiratory distress syndrome; G93.40 Encephalopathy, unspecified; N17.9 Acute kidney failure, unspecified; E87.20 Acidosis, unspecified; C56.3 Malignant neoplasm of bilateral ovaries; C78.6 Secondary malignant neoplasm of retroperitoneum and peritoneum; C78.5 Secondary malignant neoplasm of large intestine and rectum; C78.7 Secondary malignant neoplasm of liver and intrahepatic bile duct; C79.89 Secondary malignant neoplasm of other specified sites; E46 Unspecified protein-calorie malnutrition; B37.81 Candidal esophagitis; J81.1 Chronic pulmonary edema; E86.0 Dehydration; E83.42 Hypomagnesemia; W19.XXXA Unspecified fall, initial encounter; R53.81 Other malaise; E88.A Wasting disease (syndrome) due to underlying condition; Z66 Do not resuscitate; Z51.5 Encounter for palliative care; R59.0 Localized enlarged lymph nodes; Z86.718 Personal history of other venous thrombosis and embolism; Z86.711 Personal history of pulmonary embolism; Z95.828 Presence of other vascular implants and grafts; I10 Essential (primary) hypertension; F32.A Depression, unspecified; F41.9 Anxiety disorder, unspecified; Z93.3 Colostomy status; R74.02 Elevation of levels of lactic acid dehydrogenase [LDH]
CPT/HCPCS: 36415; 36591; 36600; 51702; 71045; 71250; 73521; 74018; 74176; 80051; 80053; 81003; 82330; 82803; 82805; 83605; 83615; 83735; 83880; 84100; 84145; 84443; 84484; 85007; 85025; 85610; 86140; 87040; 93005; 94660; 94664; 96365; 96367; 96372; 96375; 99285; C9113; J0456; J0696; J1450; J1650; J1720; J1940; J2060; J2270; J2543; J3370; J3475; J3480; J7030; J7050; P9046